=== PATIENT | female | born 1940 | race Caucasian/White ===

== ENCOUNTER → 2017-07-07 08:51 | Outpatient (CLI) | payer MEDICARE, OTHER, SELFPAY ==
--- NOTE | 2017-07-07 08:58 | HPBD_ITS ---
STUDY: DUAL ENERGY X-RAY ABSORPTIOMETRY / DXA REASON FOR EXAM: Female, 76 years old. The patient is postmenopausal. Loss of height of 1.5 inches. TECHNIQUE: Bone Mineral Density (BMD) measurements of lumbar spine and bilateral hips were obtained. COMPARISON: None. FINDINGS: Lumbar Spine (L1-L4): g/cm2 (1.185) / T-score (0.1) / Z-score (1.9) Findings are suggestive of normal bone density with a low fracture risk. Left Femur Total: g/cm2 (0.922) / T-score (-0.7) / Z-score (1.1) Left Femoral Neck: g/cm2 (0.993) / T-score (-0.3) / Z-score (1.7) Right Femur Total: g/cm2 (0.845) / T-score (-1.3) / Z-score (0.5) Right Femoral Neck: g/cm2 (0.960) / T-score (-0.6) / Z-score (1.4) HPBD/Dexa Bone Density Study (HP) IMPRESSION: The patient is considered osteopenic as outlined below according to World Travis Organization (WHO) criteria with a moderate fracture risk. Reference Information: The T-score is the number of standard deviations above or below the standard which is normal for young adults at their peak bone mineral density. The World Health Organization (WHO) interprets the T-scores as follows: Above -1 Normal bone density Between -1 and -2.5 Osteopenia Equal to / or below -2.5 Osteoporosis As a practical clinical guideline, osteopenia may be graded as follows: Mild -1 through -1.5 Moderate -1.6 through -2.0 Severe -2.1 through -2.4 The Z-score is the number of standard deviations above or below age-matched controls. A Z-score of less than -1.5 would be considered abnormal. References: 1. NIH Osteoporosis and Related Bone Diseases http://www.osteo.org 2. International Society for Clinical Densitometry http://www.iscd.org 3. National Osteoporosis Foundation http://www.nof.org Electronically Signed: Artis Cosme MD at 11:08 EST Tel [phone], Service support ,
--- NOTE | 2017-07-07 08:58 | HPBI_ITS ---
MAMMOGRAPHY - BILATERAL SCREENING REASON FOR EXAM: Female, 76 years old. Routine annual screening examination. PERTINENT HISTORY: Mother with breast cancer. TECHNIQUE: Digital bilateral breast kennedy (3D mammographic acquisition) in the CC and MLO projections. 2-D mediolateral oblique (MLO) and craniocaudad (CC) views of both breasts were obtained. CAD: Full Field Digital Mammography with Computer Added Detection was performed. COMPARISON: Comparison is made with prior study dated November 18, 2015 and October 15, 2014. FINDINGS: Breast Composition: There are scattered areas of fibroglandular density. There are no dominant masses or suspicious calcifications. No other significant abnormalities are identified. There has been no significant change since the prior study. HPBI/SCREENING MAMM (CAD), BILAT IMPRESSION: Stable bilateral screening mammogram. Yearly follow-up mammogram recommended. (A) ASSESSMENT CATEGORY: BIRADS Category 1: Negative. A letter regarding these results will be sent to the patient by the facility within 30 days. Approximately 10% of breast cancers are not detected by mammography. A normal mammogram should not delay biopsy of a clinically suspicious abnormality. [id number] Electronically Signed: Artis Cosme MD at 10:50 EST Tel [phone], Service support ,
== END ==
PROVIDERS: Family Provider Internal Medicine; PCP Internal Medicine; Visit Provider Internal Medicine
DX: Z12.31 Encounter for screening mammogram for malignant neoplasm of breast (principal); Z78.0 Asymptomatic menopausal state
CPT/HCPCS: 77063; 77067; 77080

== ENCOUNTER 2018-06-25 03:05 | Emergency (ER) | payer MEDICARE, OTHER, SELFPAY ==
[2018-06-25 03:06] VITALS: BP 179/71; PULSE 62; RESP 16; TEMP 36.3; O2SAT 97; BMI 21.9
--- NOTE | 2018-06-25 03:39 | EKG12_ITS ---
Test Reason : Blood Pressure : / mmHG Vent. Rate : 063 BPM Atrial Rate : 063 BPM P-R Int : 152 ms QRS Dur : 056 ms QT Int : 412 ms P-R-T Axes : 009 -16 037 degrees QTc Int : 421 ms Normal sinus rhythm Low voltage QRS Borderline ECG Confirmed by NENO ANDINO, ERNESTINE ([id number]), map editor RIKKI WARREN ([id number]) on 06/28/2018 11:40:58 AM Referred By: SPENSER Confirmed By:ERNESTINE LAZCANO MD
--- NOTE | 2018-06-25 03:40 | ED.DCSUM_ITS ---
- ER Visit Summary Date of Service: 06/25/18 Chief Complaint: [] Dizzy lightheaded History of Present Illness: The patient is a 77 F stated she felt lightheaded 45 minutes ago gradual onset. She ate lots of candy today and normally does not do that. She has a history of diabetes and takes oral medications but not insulin. She thinks she might have overdone it with her sugar her she has had a lot of belching and flatulence since 6 PM. No abdominal pain no headache no other symptoms per patient. She has had nonspecific near syncope in the past with low blood sugar. Physical Examination: [] Vital signs reviewed General: Well-nourished well-developed Head: Normocephalic atraumatic Eyes: Pupils equal round and reactive to light extraocular movements intact ENT: TMs clear no hemotympanum no trauma Neck: Nontender full range of motion Cardiovascular: Regular rate rhythm no murmurs normal S1-S2 Respiratory: No distress clear to auscultation bilaterally chest nontender Abdomen: Soft nontender nondistended normal bowel sounds no masses Back: Nontender no CVA tenderness Extremities: Nontender active range of motion ?4 extremities no trauma Skin: Normal color no trauma Neuro alert oriented cranial nerves II through XII intact normal strength sensation reflexes Test Results: [] Emergency Department Course and Treatment: [] Remained stable in the emergency department. Troponin negative. EKG normal sinus at 63. CBC normal. Chemistries normal except sodium 135. Glucose 169. Patient ambulated to the bathroom multiple times with no symptoms. It resolved while in the ER after fluids. She is resting comfortably. I do not think she needs to be admitted. I do not think she is had a stroke or TIA. She had nonspecific lightheadedness. I feel she can follow-up as an outpatient return if she worsens. Treatment Plan: [] Disposition: [] Impression: [] Lightheaded episode This note was generated with [employer] dictation software. It may contain incorrect words, spelling, and punctuation that were not noted in review of the chart prior to signing ED Disposition - Plan for ED Patient: Referrals: Mari Braun MD [Primary Care Provider] -
[2018-06-25 04:01] LABS: Bedside Glucose 145 mg/dL (70-110)
[2018-06-25 04:10] LABS: Absolute Lymphocyte Count 1.33 X10^3/ul (0.83-4.51); Absolute Neutrophil Count 3.5 X10^3/uL (2.0-7.7); Basophil# 0.02 X10^3/uL; Basophil% 0.4 % (0-1); Eosinophil# 0.06 X10^3/uL; Eosinophils% 1.1 % (0-5); Hematocrit 37.6 % (37-47); Hemoglobin 13.1 g/dl (12.0-15.0); Lymphocyte # 1.33 X10^3/ul (4.0); Lymphocyte % 24.7 % (19-41); Mean Corp Hgb Conc 34.8 g/gl (32-36); Mean Corpuscular Hgb 31.4 pg (27.0-32.0); Mean Corpuscular Volume 90.2 fL (81-99); Mean Platelet Vol. 9.3 fl (6.2-12.0); Monocyte# 0.46 X10^3/uL; Monocyte% 8.6 % (0-10); Platelet Count 187 K/mm3 (150-450); RBC Distribution Width CV 13.2 % (11.6-14.6); RBC Distribution Width SD 43.1 fl (35.1-43.9); Red Blood Count 4.17 M/mm3 (4.2-5.4); White Blood Count 5.4 K/mm3 (4.4-11.0)
[2018-06-25 04:17] LABS: POSITIVE COUNT NO; POSITIVE DIFFERENTIAL NO; POSITIVE MORPHOLOGY NO
[2018-06-25 04:20] LABS: Anion Gap 9 (5-15); BUN 8 mg/dL (7-18); Chloride 99 mmol/L (98-107); Creatinine, Serum 0.67 mg/dL (0.55-1.02); EST Glomerular Filtration Rate 91 mL/min (>60); Est Glom Filt Rate - Afr Amer 110 mL/min (>60); Estimated Creatinine Clearance 49.24 ml/min; Glucose 169 mg/dL (74-106); Potassium 3.9 mmol/L (3.5-5.1); Sodium Level 135 mmol/L (136-145)
--- NOTE | 2018-06-25 05:16 | ED.DEP ---
ED Disposition - Plan for ED Patient: Disposition: Home or Assisted Living Instructions: Possible Causes of Dizziness or Fainting Referrals: Mari Braun MD [Primary Care Provider] -
[2018-06-25 05:28] VITALS: BP 141/89; PULSE 69; O2SAT 100
== END 2018-06-25 05:29 | disposition home or self-care (01) ==
PROVIDERS: Emergency Provider Emergency Medicine; Family Provider Internal Medicine; PCP Internal Medicine
DX: R42 Dizziness and giddiness (principal); R14.2 Eructation; R14.3 Flatulence; E11.9 Type 2 diabetes mellitus without complications; E78.00 Pure hypercholesterolemia, unspecified; E03.9 Hypothyroidism, unspecified; Z87.19 Personal history of other diseases of the digestive system; Z79.84 Long term (current) use of oral hypoglycemic drugs; Z79.899 Other long term (current) drug therapy
CPT/HCPCS: 80048; 82962; 84484; 85025; 93005; 99283; A4216

== ENCOUNTER 2020-07-11 07:05 | Outpatient (RCR) | payer MEDICARE, OTHER, SELFPAY ==
[2020-07-11] MEDS: COVID-19 VACC, MRNA(PFIZER)/PF 30 MCG/0.3 ML SYRINGE IM (10:54)
[2020-08-01] MEDS: COVID-19 VACC, MRNA(PFIZER)/PF 30 MCG/0.3 ML SYRINGE IM (10:54)
== END 2020-07-11 23:59 ==
LOC: IMMUN 07:05
PROVIDERS: PCP Internal Medicine; Visit Provider Family Medicine
DX: Z23 Encounter for immunization (principal)
CPT/HCPCS: 0001A; 0002A

== ENCOUNTER 2022-02-02 21:20 | Observation (INO) | payer MEDICARE, OTHER, SELFPAY ==
[2022-02-02 21:21] VITALS: BP 100/62; PULSE 55; RESP 20; TEMP 36.1; O2SAT 100; BMI 21.4
[2022-02-02 21:26] VITALS: BP 100/62; PULSE 55; RESP 18; TEMP 36.1; O2SAT 100
--- NOTE | 2022-02-02 21:50 | EKG12_ITS ---
Test Reason : SOB Blood Pressure : / mmHG Vent. Rate : 054 BPM Atrial Rate : 054 BPM P-R Int : 188 ms QRS Dur : 068 ms QT Int : 488 ms P-R-T Axes : 049 -12 038 degrees QTc Int : 462 ms Sinus bradycardia Low voltage QRS Inferior infarct , age undetermined , cannot be excluded Abnormal ECG Confirmed by SAWYER ANDINO, VIVIAN ([id number]), advertising editor GABBY GARCIA ([id number]) on 02/03/2022 1:21:12 PM Referred By: Confirmed By:VIVIAN JACQUES MD
[2022-02-02] MEDS: 0.9% Normal Saline 1,000 ML 1000 ML IV (22:06)
[2022-02-02 22:08] VITALS: BP 118/60; PULSE 55; RESP 18; O2SAT 95
--- NOTE | 2022-02-02 22:10 | RAD_ITS ---
EXAM: XR CHEST, 1 VIEW CLINICAL INDICATION: weakness TECHNIQUE: Frontal view of the chest. This report was created using [employer] report generation technology. COMPARISON: None. FINDINGS: LUNGS AND PLEURAL SPACES: Emphysema. Mild patchy opacity left lung base laterally may be chronic but a small area of pneumonia cannot be excluded. No pneumothorax. No effusion. HEART: Unremarkable. Cardiac silhouette not enlarged. MEDIASTINUM: Central airways and mediastinal contour are unremarkable. BONES/JOINTS: Unremarkable. SOFT TISSUES: Unremarkable. RAD/Chest 1 View (Portable) IMPRESSION: 1. Emphysema. 2. Mild patchy opacity left lung base laterally may be chronic but a small area of pneumonia cannot be excluded. Electronically Signed: Jude Snow MD at 23:14 EDT ,
[2022-02-02 22:16] LABS: Absolute Lymphocyte Count 1.11 X10^3/uL (0.83-4.51); Absolute Neutrophil Count 3.8 X10^3/uL (2.0-7.7); Basophil# 0.02 X10^3/uL; Basophil% 0.4 % (0-1); Eosinophil# 0.06 X10^3/uL; Eosinophils% 1.1 % (0-5); Hemoglobin 12.7 g/dL (12.0-15.0); Lymphocyte # 1.11 X10^3/ul (0.83-4.51); Lymphocyte % 20.1 % (19-41); Mean Corp Hgb Conc 34.3 g/dL (32-36); Mean Corpuscular Hgb 30.5 pg (27.0-32.0); Mean Corpuscular Volume 88.7 fL (81-99); Monocyte# 0.46 X10^3/uL; Monocyte% 8.3 % (0-10); NRBC Flagged by Analyzer 0 % (0-5); Neutrophil # 3.84 X10^3/uL (2.7-7.7); Neutrophil % 69.6 % (47-70); Platelet Count 190 K/mm3 (150-450); RBC Distribution Width CV 12.8 % (11.6-14.6); RBC Distribution Width SD 41.7 fl (35.1-43.9); Red Blood Count 4.17 M/mm3 (4.2-5.4); White Blood Count 5.5 K/mm3 (4.4-11.0)
[2022-02-02 22:28] VITALS: BP 118/60; PULSE 65; RESP 18; TEMP 36.3; O2SAT 96
--- NOTE | 2022-02-02 22:34 | EDS_ITS ---
HPI History of Present Illness Chief Complaint: General Illness Narrative Narrative: Patient presents to the ED with confusion, weakness and a syncopal episode. She had her syncopal episode while her was calling the EMS for himself. They both were diagnosed with COVID about a week ago, they both had diarrhea, she has been more weak recently and lightheaded. She has dementia at baseline so is difficult to get a good history and review of systems from her, most of the history is from her . [facility] Medical History Diabetes Hypothyroidism Home Medications levothyroxine 88 mcg tablet 88 mcg PO DAILY 06/25/18 [History Last Taken Unknown] metformin 1,000 mg tablet 1,000 mg PO BIDCM 06/25/18 [History Last Taken Unknown] simvastatin 40 mg tablet 40 mg PO QHS 06/25/18 [History Last Taken Unknown] Allergy/AdvReac Type Severity Reaction Status Date / Time No Known Allergies Allergy Verified 02/02/22 21:26 Social History Smoking Status: Never smoker ROS ROS ED ROS Narrative Past medical history: Reviewed, dementia, diabetes, hypercholesterolemia, hypothyroidism Medications: Reviewed Social history: Noncontributory Review of systems: All systems negative or unable due to her dementia except as indicated General: No reported fever per Eyes: Patient denies blurred vision ENT: Denies upper airway congestion Neck: No neck pain Cardiovascular: No chest pain Respiratory: She tells me she is not short of breath Gastrointestinal: She denies abdominal pain Genitourinary: Unable Musculoskeletal: She denies muscle aches Skin: No itching or known rash Neurological: No focal w weakness Psych: No recent behavioral changes Hematologic: Unable EXAM Physical Exam Narrative Exam Narrative: Physical exam General: Patient appears chronically ill however she does not appear in any distress, she seems relatively comfortable in the bed. Head: Normocephalic, Atraumatic Eyes: Conjunctiva not pale ENT: Dry mucous membranes Neck: Supple, Nontender, No lymphadenopathy Cardiovascular: Regular rate, Regular rhythm Respiratory: No distress, CTA bilaterally Abdomen: Soft, Nontender, Nondistended Back: Nontender, Normal Inspection. Negative for: CVA tenderness Extremities: Nontender, No edema Skin: Normal color, No rash Neurological: Alert, oriented to year, person. She does know she is in [place]. She is confused to minor details normal Strength, Normal Sensation Psychological: Normal affect Const Vital Signs: 02/02/22 21:21 02/02/22 22:08 02/02/22 21:26 Temperature 97 F L 97.0 F L Temperature Source Temporal Temporal Pulse Rate 55 L 55 L 55 L Respiratory Rate 20 H 18 18 Respiratory Effort Respiratory Pattern Blood Pressure 100/62 118/60 100/62 Blood Pressure Mean 74 79 74 Pulse Ox 100 95 100 Oxygen Delivery Method Room Air Room Air Room Air 02/02/22 22:26 02/02/22 22:28 Temperature 97.4 F L Temperature Source Temporal Pulse Rate 65 Respiratory Rate 18 Respiratory Effort Normal Respiratory Pattern Normal Blood Pressure 118/60 Blood Pressure Mean 79 Pulse Ox 96 Oxygen Delivery Method Room Air MDM MDM MDM Narrative Medical decision making narrative: Patient's work-up is unremarkable however she has significant weakness, she was dehydration, she did improve in the emergency department but she is likely too weak to go home by herself especially that her is getting admitted. Her EKG is unremarkable as noted below. She has been asymptomatic in the ED from syncopal standpoint, she has no chest pain. She will be admitted for obs ervation. Lab Data Labs: Laboratory Results - last 24 hr 02/02/22 02/02/22 22:05 22:05 WBC 5.5 RBC 4.17 L Hgb 12.7 Hct 37.0 MCV 88.7 MCH 30.5 MCHC 34.3 RDW Std Deviation 41.7 RDW Coeff of Saadia 12.8 Plt Count 190 MPV 10.0 Immature Gran % (Auto) 0.500 Neut % (Auto) 69.6 Lymph % (Auto) 20.1 Daniels % (Auto) 8.3 Eos % (Auto) 1.1 Baso % (Auto) 0.4 Absolute Neuts (auto) 3.8 Absolute Lymphs (auto) 1.11 Nucleated RBC % 0 Sodium 133 L Potassium 4.9 Chloride 98 Carbon Dioxide 25.0 Anion Gap 10 BUN 8 Creatinine 1.00 Estim Creat Clear Calc 45.90 Est GFR (MDRD) Af Amer 68 Est GFR (MDRD) Non-Af 57 L BUN/Creatinine Ratio 8.0 L Glucose 210 H Calcium 9.0 Total Bilirubin 0.60 AST 31 ALT 18 Alkaline Phosphatase 49 Troponin I High Sens 4 Total Protein 6.2 L Albumin 3.1 L Globulin 3.1 Albumin/Globulin Ratio 1.0 Radiography Diagnostic Testing: Chest x-ray read by me as normal EKG Initial EKG: Comments: Sinus rhythm with a rate of 54. Normal CT and QTc interval. No ischemic changes. Normal EKG otherwise. Interpreted by emergency Dr. Discharge Plan Triage Chief Complaint: General Illness ED Provider: Aris Herrera Dx/Rx/DC Orders Clinical Impression: Syncope, Dehydration, COVID Prescriptions: No Action simvastatin 40 MG tablet 40 mg PO QHS levothyroxine 88 MCG tablet 88 mcg PO DAILY metformin 1,000 MG tablet 1,000 mg PO BIDCM Primary Care Provider: Mari Braun Referrals: Mari Braun MD [Primary Care Provider] - Disposition Disposition: Acute Care Hospital [facility]
[2022-02-02 22:52] LABS: AST(SGOT) 31 U/L (15-37); Alanine Aminotransfer ALT/SGPT 18 U/L (13-56); Albumin, Serum 3.1 g/dL (3.2-5.0); Alkaline Phosphatase 49 U/L (45-117); Anion Gap 10 (5-15); BUN 8 mg/dL (7-18); Chloride 98 mmol/L (98-107); EST Glomerular Filtration Rate 57 mL/min (>60); Est Glom Filt Rate - Afr Amer 68 mL/min (>60); Globulin 3.1 g/dL (2.2-4.2); Glucose 210 mg/dL (74-106); Potassium 4.9 mmol/L (3.5-5.1); Protein, Total 6.2 g/dL (6.4-8.2); Sodium Level 133 mmol/L (136-145); Troponin-I HS 4 pg/mL (3.0-54.0)
--- NOTE | 2022-02-02 23:12 | PCM.HP.STD ---
HPI - General General Date of Admission: 02/02/22 Date of Service: 02/02/22 Chief Complaint: Syncope HPI Narrative ALEXANDER CROFT, is a 81 F with a significant history of diabetes; hypothyroidism and dementia who presented to the emergency department with syncope. History was taken from patient's as patient is unable to provide appropriate history secondary to dementia. Of note patient stated that she is here because of COVID. On the day of presentation the patient's who was weak was calling paramedics. Reportedly while patient was on the phone patient passed out. Associated with patient's symptoms is diarrhea. Patient's believe the patient is unable to take care of herself while he () is in the hospital so a decision was made for patient to stay at the hospital and be observed. [facility] Medical History (Updated 02/03/22 @ 00:[address] Sean Ivy MD) Diabetes Hypothyroidism Home Medications levothyroxine 88 mcg tablet 88 mcg PO DAILY 06/25/18 [History Last Taken Unknown] metformin 1,000 mg tablet 1,000 mg PO BIDCM 06/25/18 [History Last Taken Unknown] simvastatin 40 mg tablet 40 mg PO QHS 06/25/18 [History Last Taken Unknown] Allergy/AdvReac Type Severity Reaction Status Date / Time No Known Allergies Allergy Verified 02/02/22 21:26 Family History unable to obtain unable to obtain (Secondary to dementia) Surgical History History of hysterectomy Social History Smoking Status: Never smoker ROS Review of Systems ROS Unobtainable: due to mental status Vital Signs Vital Signs Vital Signs: 02/02/22 21:21 02/02/22 22:08 02/02/22 21:26 Temperature 97 F L 97.0 F L Temperature Source Temporal Temporal Pulse Rate 55 L 55 L 55 L Respiratory Rate 20 H 18 18 Respiratory Effort Respiratory Pattern Blood Pressure 100/62 118/60 100/62 Blood Pressure Mean 74 79 74 Pulse Ox 100 95 100 Oxygen Delivery Method Room Air Room Air Room Air 02/02/22 22:26 02/02/22 22:28 Temperature 97.4 F L Temperature Source Temporal Pulse Rate 65 Respiratory Rate 18 Respiratory Effort Normal Respiratory Pattern Normal Blood Pressure 118/60 Blood Pressure Mean 79 Pulse Ox 96 Oxygen Delivery Method Room Air Weight Weight: 65.9 kg Body Mass Index (BMI) 21.4 Physical Exam Narrative Physical exam: General: Well-nourished, well-developed. Head: Normocephalic, atraumatic, no tenderness Eyes: Vision is grossly intact. EOMI ENT, no trauma, mildly dry mucous membranes, no rhinorrhea Neck: Nontender, full range of motion, no spinal tenderness, deformities, step-off CVS: Regular rate and rhythm. S1-S2 present. No murmur, gallop or rub. Respiratory : clear to auscultation bilaterally, chest wall nontender, no wheezing Abdomen: Soft, nontender, nondistended, normal bowel sounds, no masses : Deferred Back: Nontender, no CVA tenderness, no midline spinal tenderness, deformities, step-offs Extremities: Nontender full range of motion, no trauma Skin: Normal color, no trauma, abrasions Neuro: Alert, cranial nerves II through XII grossly intact. Psychiatry: Normal mood. Normal affect. Not depressed. Not anxious. Results Lab / Micro Data Attestation: I reviewed the patient's lab results. Result Diagrams: 02/02/22 22:05 02/02/22 22:05 Labs: Laboratory Results - last 24 hr 02/02/22 22:05: WBC 5.5, RBC 4.17 L, Hgb 12.7, Hct 37.0, MCV 88.7, MCH 30.5, MCHC 34.3, RDW Std Deviation 41.7, RDW Coeff of Saadia 12.8, Plt Count 190, MPV 10.0, Immature Gran % (Auto) 0.500, Neut % (Auto) 69.6, Lymph % (Auto) 20.1, [place] % (Auto) 8.3, Eos % (Auto) 1.1, Baso % (Auto) 0.4, Absolute Neuts (auto) 3.8, Absolute Lymphs (auto) 1.11, Nucleated RBC % 0 02/02/22 22:05: Sodium 133 L, Potassium 4.9, Chloride 98, Carbon Dioxide 25.0, Anion Gap 10, BUN 8, Creatinine 1.00, Estim Creat Clear Calc 45.90, Est GFR (MDRD) Af Amer 68, Est GFR (MDRD) Non-Af 57 L, BUN/Creatinine Ratio 8.0 L, Glucose 210 H, Calcium 9.0, Total Bilirubin 0.60, AST 31, ALT 18, Alkaline Phosphatase 49, Troponin I High Sens 4, Total Protein 6.2 L, Albumin 3.1 L, Globulin 3.1, Albumin/Globulin Ratio 1.0 Assessment & Plan Assessment/Plan (1) Syncope: (2) COVID-19: PLAN: Asymptomatic. (3) Diarrhea: PLAN: Plan Syncope Unclear whether patient indeed had a syncope or patient's sick just wanted a reason for patient to be observed in the Hospital in the setting of patient not being able to take care of herself if is absent. EKG independently reviewed. EKG showed sinus bradycardia and with Q waves in lead III and aVF. Impression of chest x-ray by radiologist: 1.? Emphysema. ?2.? Mild patchy opacity left lung base laterally may be chronic but a small area of pneumonia cannot be excluded. I agree with radiologist interpretation. Clinically patient has no sign of bacterial pneumonia. With COVID no echocardiogram will be ordered at this time. Orthostatic vitals per protocol Emergency department doctor ordered CTA chest; follow. COVID/diarrhea. As needed Imodium ordered. Supportive treatment with IV fluids. Mild Dehydration Mucous membrane slightly dry. Gentle IV hydration ordered. Trend BMP. Diabetes mellitus Patient with hyperglycemia on presentation Metformin held Monitor Accu-Cheks Correction scale insulin ordered. DVT Prophylaxis: Subcutaneous Lovenox ordered Charges/Coding Visit Charges OBSV E&M: 57603 Initial observation care L2
[2022-02-02 23:57] VITALS: BP 124/77; PULSE 71; RESP 16; TEMP 36.6; O2SAT 97
[2022-02-03] VITALS (15 sets, daily range): BP systolic 96–145; BP diastolic 49–72; PULSE 67–100; RESP 16–18; TEMP 36.1–36.7; O2SAT 94–100; BMI 20.2
[2022-02-03] MEDS: 0.9% Normal Saline 1,000 ML 75 ML IV ×2 (02:10→14:18)
[2022-02-03 06:22] LABS: Absolute Lymphocyte Count 1.01 X10^3/uL (0.83-4.51); Absolute Neutrophil Count 2.6 X10^3/uL (2.0-7.7); Basophil# 0.02 X10^3/uL; Basophil% 0.5 % (0-1); Eosinophil# 0.01 X10^3/uL; Eosinophils% 0.3 % (0-5); Hemoglobin 13.3 g/dL (12.0-15.0); Lymphocyte # 1.01 X10^3/ul (0.83-4.51); Lymphocyte % 25.6 % (19-41); Mean Corpuscular Hgb 30.4 pg (27.0-32.0); Mean Corpuscular Volume 86.8 fL (81-99); Mean Platelet Vol. 9.9 fl (6.2-12.0); Monocyte# 0.29 X10^3/uL; Monocyte% 7.3 % (0-10); NRBC Flagged by Analyzer 0 % (0-5); Neutrophil # 2.61 X10^3/uL (2.7-7.7); Platelet Count 214 K/mm3 (150-450); RBC Distribution Width CV 12.7 % (11.6-14.6); RBC Distribution Width SD 40.6 fl (35.1-43.9); Red Blood Count 4.38 M/mm3 (4.2-5.4)
[2022-02-03 06:45] LABS: Anion Gap 10 (5-15); BUN 7 mg/dL (7-18); BUN/Creat Ratio 10.7 RATIO (10-20); Calcium,Total 8.9 mg/dL (8.5-10.1); Chloride 98 mmol/L (98-107); Creatinine, Serum 0.65 mg/dL (0.55-1.02); EST Glomerular Filtration Rate 93 mL/min (>60); Est Glom Filt Rate - Afr Amer 112 mL/min (>60); Estimated Creatinine Clearance 43.39 ml/min; Glucose 140 mg/dL (74-106); Potassium 3.7 mmol/L (3.5-5.1); Sodium Level 133 mmol/L (136-145)
[2022-02-03] MEDS: Levothyroxine 88 MCG Tablet PO (07:00)
[2022-02-03] MEDS: Enoxaparin 40 MG/0.4 ML Syringe SC (09:09)
[2022-02-03] MEDS: Loperamide 2 MG Capsule PO (11:32)
--- NOTE | 2022-02-03 15:22 | CASEMGMT ---
OWEN BAKER called Jude Xiao to complete JI form as patient is confused. RN SAMUEL explained JI Form to , voiced understanding. gave telephone consent for JI form and filed in chart. provided copy of JI form to patient's room. had no further questions or concerns at this time.
--- NOTE | 2022-02-03 19:13 | PCM.PN.HOSP ---
Subjective Subjective Patient was seen and examined today, she remains moderately confused, according to her who is also in the hospital at this time, that is her usual state at home. I called and talked to her PCPs office and they had no diagnosis of dementia for the patient, it appears however the patient probably does have mild dementia. Patient does not understand why she is in the hospital, she states she is having diarrhea but she has no respiratory symptoms-no cough, no shortness of breath, no nasal congestion, no sore throat. I found out through the patient's PCPs office that her positive COVID test was 01/28/2022, it is unknown if the patient had any symptoms but it appears by the narrative from urgent care that the patient was asymptomatic and was tested because her was positive for COVID on 01/25/2022. Objective Data Objective Data Vital Signs: Vital Signs Temp Pulse Resp BP Pulse Ox O2 Del Method 98.1 F 69 16 127/72 H 100 Room Air 02/03/22 15:05 02/03/22 15:05 02/03/22 15:05 02/03/22 15:05 02/03/22 15:05 02/03/22 15:05 Oxygen Delivery Method Room Air Weight: 62.3 kg Body Mass Index (BMI) 20.2 Intake & Output: Intake and Output for Last 24 Hours 02/01/22 02/02/22 02/03/22 23:59 23:59 23:59 Intake Total 1000 / 1000 1870 / 1870 Balance 1000 / 1000 1870 / 1870 Lab / Micro Data Result Diagrams: 02/03/22 05:55 02/03/22 05:55 Labs: Laboratory Results - last 24 hr 02/02/22 22:05: WBC 5.5, RBC 4.17 L, Hgb 12.7, Hct 37.0, MCV 88.7, MCH 30.5, MCHC 34.3, RDW Std Deviation 41.7, RDW Coeff of Saadia 12.8, Plt Count 190, MPV 10.0, Immature Gran % (Auto) 0.500, Neut % (Auto) 69.6, Lymph % (Auto) 20.1, [place] % (Auto) 8.3, Eos % (Auto) 1.1, Baso % (Auto) 0.4, Absolute Neuts (auto) 3.8, Absolute Lymphs (auto) 1.11, Nucleated RBC % 0 02/02/22 22:05: Sodium 133 L, Potassium 4.9, Chloride 98, Carbon Dioxide 25.0, Anion Gap 10, BUN 8, Creatinine 1.00, Estim Creat Clear Calc 45.90, Est GFR (MDRD) Af Amer 68, Est GFR (MDRD) Non-Af 57 L, BUN/Creatinine Ratio 8.0 L, Glucose 210 H, Calcium 9.0, Total Bilirubin 0.60, AST 31, ALT 18, Alkaline Phosphatase 49, Troponin I High Sens 4, Total Protein 6.2 L, Albumin 3.1 L, Globulin 3.1, Albumin/Globulin Ratio 1.0 02/03/22 05:55: WBC 4.0 L, RBC 4.38, Hgb 13.3, Hct 38.0, MCV 86.8, MCH 30.4, MCHC 35.0, RDW Std Deviation 40.6, RDW Coeff of Saadia 12.7, Plt Count 214, MPV 9.9, Immature Gran % (Auto) 0.300, Neut % (Auto) 66.0, Lymph % (Auto) 25.6, [place] % (Auto) 7.3, Eos % (Auto) 0.3, Baso % (Auto) 0.5, Absolute Neuts (auto) 2.6, Absolute Lymphs (auto) 1.01, Nucleated RBC % 0 02/03/22 05:55: Sodium 133 L, Potassium 3.7, Chloride 98, Carbon Dioxide 25.0, Anion Gap 10, BUN 7, Creatinine 0.65, Estim Creat Clear Calc 43.39, Est GFR (MDRD) Af Amer 112, Est GFR (MDRD) Non-Af 93, BUN/Creatinine Ratio 10.7, Glucose 140 H, Calcium 8.9 Radiography Diagnostic Testing: Radiology Impression Chest X-Ray 02/02/22 22:10 IMPRESSION: 1. Emphysema. 2. Mild patchy opacity left lung base laterally may be chronic but a small area of pneumonia cannot be excluded. Electronically Signed: Jude Snow MD at 23:14 EDT , Physical Exam Const alert and no apparent distress Constitutional Narrative: Patient has mild confusion, she is oriented as to person and place, she appears her stated age General Appearance: cooperative, well kempt and well developed Orientation / Consciousness: awake and confused HEENT normocephalic, head/scalp atraumatic and moist oral mucous membranes Eyes PERRL, EOMs intact bilaterally and conjunctivae normal Neck supple, no JVD, thyroid normal and no carotid bruits General: trachea midline Resp normal respiratory effort, no retractions, no use of accessory muscles and clear to auscultation bilaterally Auscultation: Negative for rales, rhonchi or wheezes Cardio regular rate, regular rhythm, S1 normal heart sound, S2 normal heart sound, no murmurs, no rub and no gallops GI normal to inspection, nondistended, normoactive bowel sounds, soft to palpation, non-tender and non-distended Extremity no clubbing, cyanosis or edema Skin no rashes or lesions noted General Skin Exam: no breakdown Neuro oriented x3, CN's II-XII intact bilaterally, no focal motor deficits and no sensory deficits noted Sensorium / Orientation: awake and alert Speech: speech normal Psych affect normal Assessment & Plan Assessment/Plan (1) Syncope: PLAN: Plan 1. Syncope-etiology unclear at this point, patient exhibits no neurodeficits, she is mildly confused-according to her this is her baseline. #2 diarrhea-secondary to COVID-19 infection, patient will be given symptomatic treatment for her diarrhea #3 COVID-19 infection-patient has no evidence of respiratory embarrassment, cough, or upper respiratory symptoms, I have elected not to give her medication for COVID-19. 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 Charges/Coding Visit Charges OBSV E&M: 04979 Subsequent observation care L2
[2022-02-03] MEDS: MELATONIN 3 MG TABLET PO (20:46)
[2022-02-03] MEDS: Atorvastatin Calcium 20 MG Tablet PO (20:46)
[2022-02-03 23:55] LABS: Bedside Glucose 190 mg/dL (74-106)
[2022-02-04] MEDS: Insulin Lispro 100 UNIT/ML INSULN.PEN SC ×3 (00:12→11:02)
[2022-02-04 03:00] VITALS: BP 129/59; PULSE 69; RESP 16; TEMP 36.2; O2SAT 97
[2022-02-04 03:01] VITALS: PULSE 64
[2022-02-04] MEDS: Levothyroxine 88 MCG Tablet PO (06:24)
[2022-02-04] MEDS: 0.9% Normal Saline 1,000 ML 75 ML IV (06:25)
[2022-02-04 07:10] LABS: Bedside Glucose 187 mg/dL (74-106)
[2022-02-04 07:19] VITALS: PULSE 71
[2022-02-04 08:14] VITALS: BP 133/66; PULSE 71; RESP 16; TEMP 36.4; O2SAT 96
[2022-02-04] MEDS: Acetaminophen 325 MG Tablet 650 MG PO (08:18)
[2022-02-04] MEDS: Enoxaparin 40 MG/0.4 ML Syringe SC (08:18)
[2022-02-04] MEDS: Loperamide 2 MG Capsule PO (08:19)
[2022-02-04 09:50] VITALS: BP 133/66; PULSE 71; RESP 16; TEMP 36.4; O2SAT 96
[2022-02-04 11:01] VITALS: BP 106/62; PULSE 70; RESP 12; TEMP 36.6; O2SAT 98
[2022-02-04 11:31] LABS: Bedside Glucose 280 mg/dL (74-106)
--- NOTE | 2022-02-04 11:37 | DCINST_ITS ---
Discharge Instructions Diet Discharge Diet: 1800 Calorie Control Diet Activity Discharge Activity: Return to Normal Activity Weight Bearing Status: Full weight bearing Follow Up Care Test Results: Test results from this visit will be discussed in further detail at your follow- up appointment, if applicable. Discharge Plan Admission Admit Date/Time: 02/02/22 23:05 Primary Reason for Your Visit: debility Attending Provider: Terrance Keller Primary Care Provider: Mari Braun Consulting Providers: Sean Ivy Discharge Orders/Prescriptions Prescriptions: No Action simvastatin 40 MG tablet 40 mg PO QHS levothyroxine 88 MCG tablet 88 mcg PO DAILY metformin 1,000 MG tablet 1,000 mg PO BIDCM Referrals / Follow Up: Mari Braun MD [Primary Care Provider] - Within 2 Weeks Disposition Disposition (needs filled in before D/C Order can be placed): Home, Self Care
--- NOTE | 2022-02-04 11:41 | PCM.DC.SUM ---
Providers Date of Admission: 02/02/22 Date of Discharge: 02/04/22 Primary Care Physician: Dr. Mari Braun MD Reason For Visit: SYNCOPAL EPISODE Diagnosis Discharge Diagnosis (1) Syncope: Status: Acute Code(s): R55 - Syncope and collapse (2) COVID-19: Status: Acute Code(s): U07.1 - COVID-19 (3) Diarrhea: Status: Acute Code(s): R19.7 - Diarrhea, unspecified Plan 1.? Syncope-etiology unclear at this point, patient exhibits no neurodeficits, she is mildly confused-according to her this is her baseline. #2 diarrhea-secondary to COVID-19 infection, patient will be given symptomatic treatment for her diarrhea #3 COVID-19 infection-patient has no evidence of respiratory embarrassment, cough, or upper respiratory symptoms, I have elected not to give her medication for COVID-19. 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 Medications at Discharge Home Medications levothyroxine 88 mcg tablet 88 mcg PO DAILY thyroid 06/25/18 metformin 1,000 mg tablet 1,000 mg PO BIDCM diabetes 06/25/18 simvastatin 40 mg tablet 40 mg PO QHS cholesterol 06/25/18 Hospital Course Operations None Procedures None Summary of Care Provided Minutes Spent on Discharge: 31 Hospital Course: This 81-year-old white female was seen in the emergency room at [facility] [place] after having a brief syncopal episode at home. Work-up in the emergency room did not reveal an etiology for the syncope patient appeared mildly confused, she lives with her who will who had COVID and she had tested recently as an outpatient for COVID-19 also. Patient complained of loose stools but she had no complaints of any upper or lower respiratory symptoms. She was not hypoxic. Patient was placed in observation status on PCU, he was not treated for COVID-19, she was given supportive care and seen by PT and OT. Patient's had also been admitted the same day, on 02/04/2022, he was ready for discharge home. On 02/04/2022, she was felt to be stable for discharge home: On examination she appeared in good health and spirits, she exhibited mild confusion, she does not appear to be in any distress. Vital signs as documented. Skin warm and dry and without overt rashes. Neck without JVD, thyroid appears normal, trachea is midline, neck is supple. Lungs clear, normal air movement was noted. Heart exam notable for regular rhythm, normal sounds and absence of murmurs, rubs or gallops. Abdomen unremarkable and without evidence of organomegaly, masses, or abdominal aortic enlargement, bowel sounds are present in all 4 quadrants, no abdominal tenderness was noted. Extremities nonedematous, no cyanosis was noted, no clubbing was noted. Neuro: Cranial nerves II through XII are grossly intact, no focal motor deficits were noted, sensation to light touch and pinprick is intact, motor exam 5/5 throughout. Psych: Patient is alert and oriented as to person and place, she exhibited mild confusion Patient was discharged home in stable condition on 02/04/2022.. Weight / BMI Weight Weight: 62.3 kg Body Mass Index (BMI) 20.2 ABG / Lab / Microbiology Data Result Diagrams: 02/03/22 05:55 02/03/22 05:55 Laboratory: Laboratory Results - last 24 hr 02/03/22 23:36: POC Glucose 190 H 02/04/22 06:20: POC Glucose 187 H 02/04/22 10:57: POC Glucose 280 H D/C Instructions Discharge Diet: 1800 Calorie Control Diet Weight Bearing Status: Full weight bearing Meaningful Use Info Meaningful Use Diagnoses (Choose all that apply): None applicable Discharge Plan Admission Admit Date/Time: 02/02/22 23:05 Primary Reason for Your Visit: debility Attending Provider: Terrance Keller Primary Care Provider: Mari Braun Consulting Providers: Sean Ivy Discharge Orders/Prescriptions Prescriptions: No Action simvastatin 40 MG tablet 40 mg PO QHS levothyroxine 88 MCG tablet 88 mcg PO DAILY metformin 1,000 MG tablet 1,000 mg PO BIDCM Referrals / Follow Up: Mari Braun MD [Primary Care Provider] - Within 2 Weeks Disposition Disposition (needs filled in before D/C Order can be placed): Home, Self Care Charges/Coding Visit Charges OBSV E&M: [id number] Observation care discharge
--- NOTE | 2022-02-04 11:57 | PHA.DC.MR ---
Pharmacy Service has performed discharge medication reconciliation for this patient. The patient's discharge medication list was reviewed for discrepancies and discrepancies were resolved. Home Medications levothyroxine 88 mcg tablet 88 mcg PO DAILY thyroid 06/25/18 metformin 1,000 mg tablet 1,000 mg PO BIDCM diabetes 06/25/18 simvastatin 40 mg tablet 40 mg PO QHS cholesterol 06/25/18
--- NOTE | 2022-02-04 12:06 | CASEMGMT ---
Pt's is also admitted and pt has been going to his room(next door) independently. Pt is SBA in room. Pt has pulse ox at home to check oxygen and has been on room air since admission. CM to follow for any further discharge planning/needs. Padmini WEAVER CM
== END 2022-02-04 11:40 | disposition home or self-care (01) ==
LOC: ED 23:09 → PCU 23:19
PROVIDERS: Admitting Provider Hospitalist; Emergency Provider Emergency Medicine; PCP Internal Medicine; Visit Provider Internal Medicine
DX: U07.1 COVID-19 (principal); G30.9 Alzheimer's disease, unspecified; F02.80 Dementia in other diseases classified elsewhere, unspecified severity, without behavioral disturbance, psychotic disturbance, mood disturbance, and anxiety; E11.9 Type 2 diabetes mellitus without complications; R55 Syncope and collapse; E78.00 Pure hypercholesterolemia, unspecified; E86.0 Dehydration; Z79.899 Other long term (current) drug therapy; Z79.890 Hormone replacement therapy; Z79.84 Long term (current) use of oral hypoglycemic drugs; E55.9 Vitamin D deficiency, unspecified
CPT/HCPCS: 36415; 71045; 80048; 80053; 82962; 84484; 85025; 93005; 96360; 96361; 96372; 99218; 99285; J7030; A4216; G0378

== ENCOUNTER 2023-06-19 15:54 | Observation (INO) | payer MEDICARE, OTHER, SELFPAY ==
[2023-06-19 15:55] VITALS: BP 147/85; PULSE 81; RESP 16; TEMP 37.2; O2SAT 99; BMI 23.3
--- OUTSIDE RECORDS SUMMARY | 2023-06-19 16:13 | XMS RPT_ITS | CCD ---
Author Name Unknown Address [address] [place] [address] Organization [facility] Care Team Providers Care Hydraulic Mechanic Name Role Phone Jose Braun MD Primary Care Provider Tony SYSTEMS INTEGRATION MANAGER.Evita RUELAS Primary Care Provider [phone] Jose Braun MD Primary Care Provider JOSE BRAUN Primary Care Unavailable JOSE BRAUN Primary Care Unavailable EVITA JIMENEZ Referring Unavailable JOSE BRAUN Primary Care Unavailable EVITA JIMENEZ Attending Unavailable JOSE BRAUN Primary Care Unavailable EVITA JIMENEZ Attending Unavailable JOSE BRAUN Primary Care Unavailable EVITA JIMENEZ Attending Unavailable EVITA JIMENEZ Primary Care Unavailable EVITA JIMENEZ Primary Care Unavailable Medications Current Medications Medication Drug Class(es) Dates Sig (Normalized) Sig (Original) acetaminophen 325 mg oral tablet (2 sources) Start: 10-30-2015 End: 11-27-2021 take 2 tablets by mouth every six hours as needed acetaminophen (TYLENOL) 325 mg tablet Take 2 tablets by mouth every 6 hours as needed. 0 10/30/2015 11/27/2021 Discontinued Completed/Discontinued Medications Medication Drug Class(es) Dates Sig (Normalized) Sig (Original) multivitamin tablet (9 sources) take 1 tablet by renee th once daily multivitamin tablet Take 1 tablet by mouth once daily. 0 Active Problems Active Problems Problem Classification Problem Date Documented Da te Episodic/Chronic Diabetes mellitus without complication (13 sources) Type 2 diabetes mellitus without complication; Translations: [Type 2 diabetes mellitus without complications] Onset: 10-30-2015 Chronic Disorders of lipid metabolism (11 sources) Hypercholesterolemi a; Translations: [Pure hypercholesterolemi a, unspecified] 10-30-2015 Chronic Mycoses (1 source) Onychomycosis; Translations: [Tinea unguium] Episodic Other gastrointestinal disorders (1 source) Diarrhea; Translations: [Diarrhea, unspecified] Episodic Other skin disorders (1 source) Eruption; Translations: [Rash and other nonspecific skin eruption] Episodic Other skin disorders (1 source) Skin lesion; Translations: [Disorder of the skin and subcutaneous tissue, unspecified] Episodic Residual codes; unclassified (2 sources) Memory impairment; Translations: [Other amnesia] Episodic Syncope (1 source) Syncope; Translations: [Syncope and collapse] Episodic Thyroid disorders (12 sources) Hypothyroidism; Translations: [Hypothyroidism, unspecified] Onset: 10-30-2015 10-30-2015 Chronic Viral infection (2 sources) Disease caused by 2019-nCoV; Translations: [COVID-19] Episodic Viral infection (1 source) COVID-19; Translations: [COVID-19 virus infection] Onset: 01-29-2022 Past or Other Problems Problem Classification Problem Date Documented Da te Episodic/Chronic Immunizations and screening for infectious disease (6 sources) Requires varicella vaccination; Translations: [Encounter for immunization] Onset: 11-27-2021 Episodic Other screening for suspected conditions (not mental disorders or infectious disease) (5 sources) Patient encounter status; Translations: [Encounter for screening for eye and ear disorders] Onset: 11-27-2021 Episodic Residual codes; unclassified (1 source) Other amnesia; Translations: [Memory problem] Onset: 11-27-2021 Episodic Results Test Name Value Interpretation Reference Range Facil ity Vital Signs Date Time Vital Sign Value Performing Clinician Jaylan payne 02-27-2022 08:17-0400 Body weight 63.5 kg Evita Jimenez SYSTEMS INTEGRATION MANAGER.RISK PROFESSIONAL Work Phone: [facility] 02-27-2022 08:17-0400 Diastolic blood pressure 80 mm[Hg] Evita Jimenez SYSTEMS INTEGRATION MANAGER.RISK PROFESSIONAL Work Phone: [facility] 02-27-2022 08:17-0400 Heart rate 83 /min Evita Jimenez SYSTEMS INTEGRATION MANAGER.RISK PROFESSIONAL Work Phone: [facility] 02-27-2022 08:17-0400 Respiratory rate 16 /min Evita Jimenez SYSTEMS INTEGRATION MANAGER.RISK PROFESSIONAL Work Phone: [facility] 02-27-2022 08:17-0400 SaO2% (BldA) [Mass fraction] 98 % Evita Jimenez SYSTEMS INTEGRATION MANAGER.RISK PROFESSIONAL Work Phone: [facility] 02-27-2022 08:17-0400 Systolic blood pressure 122 mm[Hg] Evita Jimenez SYSTEMS INTEGRATION MANAGER.RISK PROFESSIONAL Work Phone: [facility] 01-28-2022 16:11-0400 Body temperature 99.39 [degF] Jackie Praisler-Wood SYSTEMS INTEGRATION MANAGER.CASUALTY UNDERWRITER Work Phone: [facility] 01-28-2022 16:11-0400 Body weight 65.05 kg Jackie Praisler-Wood SYSTEMS INTEGRATION MANAGER.CASUALTY UNDERWRITER Work Phone: [facility] 01-28-2022 16:11-0400 Diastolic blood pressure 82 mm[Hg] Jackie Praisler-Wood SYSTEMS INTEGRATION MANAGER.CASUALTY UNDERWRITER Work Phone: [facility] 01-28-2022 16:11-0400 Heart rate 86 /min Jackie Praisler-Wood SYSTEMS INTEGRATION MANAGER.CASUALTY UNDERWRITER Work Phone: [facility] 01-28-2022 16:11-0400 Respiratory rate 18 /min Jackie Praisler-Wood SYSTEMS INTEGRATION MANAGER.CASUALTY UNDERWRITER Work Phone: [facility] 01-28-2022 16:11-0400 SaO2% (BldA) [Mass fraction] 95 % Jackie Praisler-Wood SYSTEMS INTEGRATION MANAGER.CASUALTY UNDERWRITER Work Phone: [facility] 01-28-2022 16:11-0400 Systolic blood pressure 120 mm[Hg] Jackie Praisler-Wood SYSTEMS INTEGRATION MANAGER.CASUALTY UNDERWRITER Work Phone: [facility] 01-09-2022 10:08-0400 Body temperature 97.81 [degF] Rena Demetrius SYSTEMS INTEGRATION MANAGER.CASUALTY UNDERWRITER Work Phone: [facility] 01-09-2022 10:08-0400 Body weight 66.41 kg Rena Demetrius SYSTEMS INTEGRATION MANAGER.CASUALTY UNDERWRITER Work Phone: [facility] 01-09-2022 10:08-0400 Diastolic blood pressure 78 mm[Hg] Rena Demetrius SYSTEMS INTEGRATION MANAGER.CASUALTY UNDERWRITER Work Phone: [facility] 01-09-2022 10:08-0400 Heart rate 110 /min Rena Demetrius SYSTEMS INTEGRATION MANAGER.CASUALTY UNDERWRITER Work Phone: [facility] 01-09-2022 10:08-0400 Respiratory rate 16 /min Rena Demetrius SYSTEMS INTEGRATION MANAGER.CASUALTY UNDERWRITER Work Phone: [facility] 01-09-2022 10:08-0400 SaO2% (BldA) [Mass fraction] 98 % Rena Demetrius SYSTEMS INTEGRATION MANAGER.CASUALTY UNDERWRITER Work Phone: [facility] 01-09-2022 10:08-0400 Systolic blood pressure 132 mm[Hg] Rena Demetrius SYSTEMS INTEGRATION MANAGER.CASUALTY UNDERWRITER Work Phone: [facility] 11-27-2021 09:06-0400 Body weight 66.22 kg Evita Jimenez SYSTEMS INTEGRATION MANAGER.RISK PROFESSIONAL Work Phone: [facility] 11-27-2021 09:06-0400 Diastolic blood pressure 80 mm[Hg] Evita Jimenez SYSTEMS INTEGRATION MANAGER.RISK PROFESSIONAL Work Phone: [facility] 11-27-2021 09:06-0400 Heart rate 78 /min Evita Jimenez SYSTEMS INTEGRATION MANAGER.RISK PROFESSIONAL Work Phone: [facility] 11-27-2021 09:06-0400 Respiratory rate 16 /min Evita Jimenez SYSTEMS INTEGRATION MANAGER.RISK PROFESSIONAL Work Phone: [facility] 11-27-2021 09:06-0400 SaO2% (BldA) [Mass fraction] 98 % Evita Jimenez SYSTEMS INTEGRATION MANAGER.RISK PROFESSIONAL Work Phone: [facility] 11-27-2021 09:06-0400 Systolic blood pressure 138 mm[Hg] Evita Jimenez SYSTEMS INTEGRATION MANAGER.RISK PROFESSIONAL Work Phone: [facility] Encounters Encounter Date Encounter Type Care Provider Facility Start: 02-27-2022 End: 02-27-2022 ambulatory JOSE BRAUN Facility:[facility] Start: 02-27-2022 End: 02-27-2022 Patient encounter procedure Evita Jimenez SYSTEMS INTEGRATION MANAGER.RISK PROFESSIONAL Work Phone: [facility] Plan of Treatment Date Care Activity Detail Author Start: 02-27-2023 3 comp foot exam completed DIABETIC FOOT EXAM [facility] Start: 12-01-2022 FECAL OCCULT BLOOD FECAL OCCULT BLOO D [facility] Start: 11-27-2022 3 comp foot exam completed DIABETIC FOOT EXAM [facility] Start: 11-27-2022 Hepatitis B surface antibody level LDL CHOLESTEROL [facility] Start: 05-30-2022 Hemoglobin A1c/Hemoglobin.total in Blood HBA1C [facility] Start: 05-11-2022 End: 02-05-2023 ALBUMIN/CREAT RATIO RND UR ALBUMIN/CREAT RATIO RND UR Lab Routine Type 2 diabetes mellitus without complication, without long-term current use of insulin (HCC) Expected: 05/11/2022 (Approximate), Expires: 02/05/2023 [facility] Work Phone: Immunizations Immunization Date Immunization Notes Care Provider Jayda reed 02-25-2022 influenza, high dose seasonal, preservative-free Evita Jimenez APRN.RISK PROFESSIONAL Work Phone: [facility] Work Phone: 06-28-2019 influenza, high dose seasonal, preservative-free Russ Lama MA [facility] 03-11-2018 influenza, high dose seasonal, preservative-free Russ Lama MA [facility] Work Phone: 12-10-2017 pneumococcal conjuga te vaccine, 13 valent Russ Lama MA [facility] 06-07-2017 influenza, high dose seasonal, preservative-free Russ Lama MA [facility] 05-12-2016 influenza, high dose seasonal, preservative-free Russ Lama MA [facility] 04-08-2011 pneumococcal polysaccharide vaccine, 23 valent Russ Lama MA [facility] 09-25-2010 tetanus toxoid, redu binta diphtheria toxoid, and acellular pertussis vaccine, adsorbed Russ Lama MA [facility] 04-11-2007 zoster vaccine, live Russ Lama MA [facility] NEGATED: Highlighted row has not occurred!11-27-2021 COVID-19 vaccine, age 12+ yr ([employer] - [facility] [employer]) Evita Jimenez APRN.[facility] Work Phone: [facility] Work Phone: Payers Date Payer Category Payer Medicare [id number] 2011 Private Health Insurance [employer]ET[employer] A ETNA MEDICARE SUPPLEMENT [id number] 2011-Present [phone] [address] [address] [place] [address] Indemnity [id number] 2011 Private Health Insurance [employer] A ETNA MEDICARE SUPPLEMENT [id number] 2011-Present [phone] [address] [address] [place] [address] Indemnity [id number] 2005 Medicare MEDICARE MEDICAR E A AND B [id number] 2005-Present [phone] [place] [address] Medicare [id number] 2005 Medicare MEDICARE MEDICAR E A AND B [id number] 2005-Present [phone] [place] [address] Medicare [id number] 2005 Medicare [id number] Social History Date Type Detail Facility Start: 10-30-2015 End: 01-09-2022 Tobacco smoking status NHIS Never smoked tobacco [facility] Start: 10-30-2015 End: 01-09-2022 Tobacco use and exposure Smokeless tobacco non-user [facility] Start: 02-14-2021 End: 02-27-2022 Alcohol intake Not Asked [facility] Start: 1940 Sex Assigned At Not on file [facility] Start: 11-17-2021 End: 02-27-2022 Exposure to SARS-CoV-2 (event) Not sure [facility] Work Phone: Start: 01-19-2022 End: 01-29-2022 Exposure to SARS-CoV-2 (event) Unable to assess [facility] Work Phone: Clinical Notes 11-16-2016 to 02-27-2022 Patient InstructionsEvita Jimenez APRN.RISK PROFESSIONAL - 02/27/2022 8:20 AM EDTTanu Jimenez APRN.RISK PROFESSIONAL - 01/29/2022 1:40 PM EDTPatient InstructionsTelephone Encounter - Camilla Cox ADMINISTRATIVE VOLUNTEER - 01/29/2022 8:45 AM EDT Note Date & Type Note Facility 02-27-2022 Note HNO ID: [id number] Author: Evita Jimenez APRN.RISK PROFESSIONAL Service: ? Author Type: Nurse Specialist Type: Progress Notes Filed: 02/27/2022 8:59 AM Note Text: SUBJECTIVE: DILATED RETINAL EXAM due on 06/03/2019 DTAP,TDAP,TD(2 - Td or Tdap) due on 09/25/2020 DEPRESSION ASSESSMENT Never done URINE ALBUMIN:CREATININE RATIO due on 01/24/2022 HPI Alexander Xiao is a 81 year old female. PMH significant for ACTIVE PROBLEM LIST Hypothyroidism Hypercholesteremia Dm (Diabetes Mellitus) (Hcc) HPI excerpted from previous visits: Last seen by Jose Braun MD 07/2020. She notes she left at her last visit because she did not want to wear down. Left without being seen. Presents with her who helps with history of present illness. Notes memory is significantly decreased, can get lost. Reports able to complete ADLs and IADLs without difficulty. indicates he works 4 hours/day. Notes often forgets that he is working. Notes she exercises and feels well with this. Reports not needing help at home at this time. Video visit 01/29/2022 for Covid19. Prescribed paxlovid. [facility] 02/02/2022 for COVID-19 virus infection, dehydration, diarrhea, syncope, weakness. Review of outside records shows She presented to the emergency department with confusion weakness and a syncopal episode. Notes indicate she had a syncopal episode while her was calling EMS for her symptoms. Both with diagnosis of COVID 1 week prior. Reported both have been having diarrhea. She noted increased weakness and lightheadedness. History primarily received from . Exam was unremarkable. Notes indicate that she was too weak to go home. was being admitted to the hospital. EKG 's unremarkable. She was admitted for observation. CBC and CMP overall unremarkable, total protein and albumin were reduced. . She was not treated fwith COVID-19 specific medication during hospitalization. CXR consistent with pneumonia, emphysema. HPI primarily from . Today reports was not taking medications as ordered for a period of time about one month ago. Weakness: resolving Oral intake: normal intake Mobility:active within the home Fever: no SOB: no Cough:no Diarrhea: resolved; ocassional use of imodium Syncope: no recurrence Continue to note decreased memory, has declined hydrochloric acid operator in the past. Prefers to not take any additional medications at this time. notes she at times declines medications, will fight him about it. DIABETES MELLITUS: Does not check blood sugars at home. Feeling well with current medications. Taking consistently. Without report of excessive thirst or increased frequency of urination, chest pain or dyspnea , numbness, tingling or pain in extremities, new or unusual visual symptoms, low sugar/hypoglycemic reactions, weight loss/gain, lightheadedness/dizziness and bowel changes/loose stools. Patient's last HgA1C was Hemoglobin A1C (%) Date Value 11/27/2021 7.7 01/24/2021 7.5 12/25/2019 6.8 Hemoglobin A1C (POCT) (%) Date Value 07/31/2020 6.7 ) Last 14 Encounter BP Readings: Date: BP: 01/28/2022 120/82 01/09/2022 132/78 11/27/2021 138/80 02/14/2021 142/82 01/08/2020 130/70 06/28/2019 114/68 12/16/2018 114/58 06/13/2018 116/64 02/11/2018 122/82 12/10/2017 112/72 06/08/2017 142/82 06/07/2017 120/60 11/16/2016 118/62 05/12/2016 112/70 Creatinine Date Value Ref Range Status 11/27/2021 0.70 0.58 - 0.96 mg/dL Final 01/24/2021 0.70 0.58 - 0.96 mg/dL Final 12/25/2019 0.72 0.58 - 0.96 mg/dL Final 06/20/2019 0.65 0.58 - 0.96 mg/dL Final Review of Systems Constitutional: Negative. Respiratory: Negative. Cardiovascular: Negative. Endocrine: Negative. Objective BP 122/80 Pulse 83 Resp 16 Wt 63.5 kg (140 lb) SpO2 98% BMI 21.29 kg/m? Physical Exam Vitals and nursing note reviewed. Constitutional: Appearance: Normal appearance. HENT: Head: Normocephalic and atraumatic. Eyes: Conjunctiva/sclera: Conjunctivae normal. Cardiovascular: Rate and Rhythm: Normal rate and regular rhythm. Pulses: Normal pulses. Heart sounds: Normal heart sounds. Pulmonary: Effort: Pulmonary effort is normal. Breath sounds: Normal breath sounds. Abdominal: General: Bowel sounds are normal. Palpations: Abdomen is soft. Musculoskeletal: Right lower leg: No edema. Left lower leg: No edema. Feet: Right foot: Protective Sensation: 10 sites tested. 10 sites sensed. Skin integrity: Dry skin present. Toenail Condition: Right toenails are abnormally thick. Fungal disease present. Left foot: Protective Sensation: 10 sites tested. 10 sites sensed. Skin integrity: Dry skin present. Toenail Condition: Left toenails are normal. Skin: General: Skin is warm and dry. Neurological: Mental Status: She is alert. Mental status is at baseline. Psychiatric: Attention and Perception: Attention normal. Mood and Af (more content not included)... [facility] 02-27-2022 Instructions Evita Jimenez APRN.CNS - 02/27/2022 8:40 AM EDT Let us know if needing additional help at home or wanting to follow up with hydrochloric acid operator regarding memory documented in this encounter [facility] 02-27-2022 History of Present illness Narrative SUBJECTIVE: DILATED RETINAL EXAM due on 06/03/2019 DTAP,TDAP,TD(2 - Td or Tdap) due on 09/25/2020 DEPRESSION ASSESSMENT Never done URINE ALBUMIN:CREATININE RATIO due on 01/24/2022 HPI Alexander Xiao is a 81 year old female. PMH significant for ACTIVE PROBLEM LIST Hypothyroidism Hypercholesteremia Dm (Diabetes Mellitus) (Hcc) HPI excerpted from previous visits: Last seen by Jose Braun MD 07/2020. She notes she left at her last visit because she did not want to wear down. Left without being seen. Presents with her who helps with history of present illness. Notes memory is significantly decreased, can get lost. Reports able to complete ADLs and IADLs without difficulty. indicates he works 4 hours/day. Notes often forgets that he is working. Notes she exercises and feels well with this. Reports not needing help at home at this time. Video visit 01/29/2022 for Covid19. Prescribed paxlovid. [facility] 02/02/2022 for COVID-19 virus infection, dehydration, diarrhea, syncope, weakness. Review of outside records shows She presented to the emergency department with confusion weakness and a syncopal episode. Notes indicate she had a syncopal episode while her was calling EMS for her symptoms. Both with diagnosis of COVID 1 week prior. Reported both have been having diarrhea. She noted increased weakness and lightheadedness. History primarily received from . Exam was unremarkable. Notes indicate that she was too weak to go home. was being admitted to the hospital. EKG 's unremarkable. She was admitted for observation. CBC and CMP overall unremarkable, total protein and albumin were reduced. . She was not treated fwith COVID-19 specific medication during hospitalization. CXR consistent with pneumonia, emphysema. HPI primarily from . Today reports was not taking medications as ordered for a period of time about one month ago. Weakness: resolving Oral intake: normal intake Mobility:active within the home Fever: no SOB: no Cough:no Diarrhea: resolved; ocassional use of imodium Syncope: no recurrence Continue to note decreased memory, has declined hydrochloric acid operator in the past. Prefers to not take any additional medications at this time. notes she at times declines medications, will fight him about it. DIABETES MELLITUS: Does not check blood sugars at home. Feeling well with current medications. Taking consistently. Without report of excessive thirst or increased frequency of urination, chest pain or dyspnea , numbness, tingling or pain in extremities, new or unusual visual symptoms, low sugar/hypoglycemic reactions, weight loss/gain, lightheadedness/dizziness and bowel changes/loose stools. Patient's last HgA1C was Hemoglobin A1C (%) Date Value 11/27/2021 7.7 01/24/2021 7.5 12/25/2019 6.8 Hemoglobin A1C (POCT) (%) Date Value 07/31/2020 6.7 ) Last 14 Encounter BP Readings: Date: BP: 01/28/2022 120/82 01/09/2022 132/78 11/27/2021 138/80 02/14/2021 142/82 01/08/2020 130/70 06/28/2019 114/68 12/16/2018 114/58 06/13/2018 116/64 02/11/2018 122/82 12/10/2017 112/72 06/08/2017 142/82 06/07/2017 120/60 11/16/2016 118/62 05/12/2016 112/70 Creatinine Date Value Ref Range Status 11/27/2021 0.70 0.58 - 0.96 mg/dL Final 01/24/2021 0.70 0.58 - 0.96 mg/dL Final 12/25/2019 0.72 0.58 - 0.96 mg/dL Final 06/20/2019 0.65 0.58 - 0.96 mg/dL Final Review of Systems Constitutional: Negative. Respiratory: Negative. Cardiovascular: Negative. Endocrine: Negative. Objective BP 122/80 Pulse 83 Resp 16 Wt 63.5 kg (140 lb) SpO2 98% BMI 21.29 kg/m Physical Exam Vitals and nursing note reviewed. Constitutional: Appearance: Normal appearance. HENT: Head: Normocephalic and atraumatic. Eyes: Conjunctiva/sclera: Conjunctivae normal. Cardiovascular: Rate and Rhythm: Normal rate and regular rhythm. Pulses: Normal pulses. Heart sounds: Normal heart sounds. Pulmonary: Effort: Pulmonary effort is normal. Breath sounds: Normal breath sounds. Abdominal: General: Bowel sounds are normal. Palpations: Abdomen is soft. Musculoskeletal: Right lower leg: No edema. Left lower leg: No edema. Feet: Right foot: Protective Sensation: 10 sites tested. 10 sites sensed. Skin integrity: Dry skin present. Toenail Condition: Right toenails are abnormally thick. Fungal disease present. Left foot: Protective Sensation: 10 sites tested. 10 sites sensed. Skin integrity: Dry skin present. Toenail Condition: Left toenails are normal. Skin: General: Skin is warm and dry. Neurological: Mental Status: She is alert. Mental status is at baseline. Psychiatric: Attention and Perception: Attention normal. Mood and Affect: Mood is not elated. Speech: Speech normal. ALLERGIES No Known Allergies Medication triamcinolone acetonide (KENALOG) 0.1 % cream Apply 1 application to affected area three times daily. Apply sparingly to area for rash/itching. levothyroxine (SYNTHROID) 88 mcg tablet Take 1 pill daily except one day per week take 1.5 pills (total 7.5 pills per week) metFORMIN (GLUCOPHAGE) 500 mg tablet Take 2 tablets by mouth twice daily and take 1 tablet daily at lunch simvastatin (ZOCOR) 40 mg tablet Take 1 tablet by mouth daily at bedtime. multivitamin tablet Take 1 tablet by mouth once daily. PAST MEDICAL HISTORY Diagnosis Date DM (diabetes mellitus) (HCC) History of endometrial cancer 2000 with radiation treatment Hypercholesteremia Hypothyroidism Serum calcium elevated 11/16/2016 Normal on 05/2017 labs Social History Tobacco Use Smoking status: Never Smokeless tobacco: Never Component Latest Ref Rng & Units 07/31/2020 01/24/2021 Protein, Total 6.3 - 8.0 g/dL 6.8 Albumin 3.9 - 4.9 g/dL 4.3 Calcium 8.5 - 10.2 mg/dL 10.1 Bilirubin, Total 0.2 - 1.3 mg/dL 0.6 Alkaline Phosphatase 34 - 123 U/L 59 AST 13 - 35 U/L 20 Glucose 74 - 99 mg/dL 169 (H) BUN 7 - 21 mg/dL 15 Creatinine 0.58 - 0.96 mg/dL 0.70 Sodium 136 - 144 mmol/L 139 Potassium 3.7 - 5.1 mmol/L 4.2 Chloride 97 - 105 mmol/L 101 CO2 22 - 30 mmol/L 26 Anion Gap 9 - 18 mmol/L 12 ALT 7 - 38 U/L 14 eGFR- >60 eGFR-All Other Races . >60 WBC 3.70 - 11.00 k/uL 4.62 RBC 3.90 - 5.20 m/uL 4.67 Hemoglobin 11.5 - 15.5 g/dL 14.0 Hematocrit 36.0 - 46.0 % 42.9 MCV 80.0 - 100.0 fL 91.9 MCH 26.0 - 34.0 pG 30.0 MCHC 30.5 - 36.0 g/dL 32.6 RDW-CV 11.5 - 15.0 % 13.2 Platelet Count 150 - 400 k/uL 213 MPV 9.0 - 12.7 fL 10.3 Absolute nRBC <0.01 k/uL <0.01 Cholesterol, Total <200 mg/dL 160 Triglyceride <150 mg/dL 96 HDL Cholesterol >39 mg/dL 60 LDL Cholesterol <100 mg/dL 81 Non HDL Cholesterol <130 mg/dL 100 Fasting Time hrs 12 VLDL Cholesterol <30 mg/dL 19 TC:HDL Ratio <5.10 2.67 LDL:HDL Ratio <2.54 1.35 Creatinine, Ur Random (UCRR) 20 - 300 mg/dL 97.6 Albumin, Urine Random mg/L 30.2 Albumin/Creat Ratio <30 mg/g 31 (H) Hemoglobin A1C 4.3 - 5.6 % 7.5 (H) Estimated Average Glucose mg/dL 169 Hemoglobin A1C (POCT) 4.2 - 5.6 % 6.7 (A) TSH 0.270 - 4.200 uU/mL 3.610 Free T4 0.9 - 1.7 ng/dL 1.2 Vitamin D 25 Hydroxy 31.0 - 80.0 ng/mL 42.6 ASSESSMENT/PLAN: ASSESSMENT/PLAN: 1. COVID-19 virus infection - ICD9: 079.89, ICD10: U07.1 (primary diagnosis) Symptoms resolved, back to baseline, no recurrence of syncope. 2. Screening for diabetic retinopathy - ICD9: V80.2, ICD10: Z13.5 - CONSULT TO OPHTHALMOLOGY 3. Encounter for immunization - ICD9: V03.89, ICD10: Z23 - TDAP VACCINE AGE 7+ IM 4. Type 2 diabetes mellitus without complication, without long-term current use of insulin (HCC) - ICD9: 250.00, ICD10: E11.9 Stable, currently controlled, continue to monitor. - ALBUMIN/CREAT RATIO RND UR - COMP METABOLIC PANEL - CBC + DIFF - HGB A1C - LIPID PANEL BASIC 5. Hypercholesteremia - ICD9: 272.0, ICD10: E78.00 Stable, currently controlled, continue to monitor. - COMP METABOLIC PANEL - CBC + DIFF - LIPID PANEL BASIC 6. Acquired hypothyroidism - ICD9: 244.9, ICD10: E03.9 Stable, currently controlled, continue to monitor. - COMP METABOLIC PANEL - CBC + DIFF 7. Syncope, unspecified syncope type - ICD9: 780.2, ICD10: R55 no recurrence - CBC + DIFF 8. Diarrhea, unspecified type - ICD9: 787.91, ICD10: R19.7 Resolved - CBC + DIFF 9. Memory problem - ICD9: 780.93, ICD10: R41.3 Declines hydrochloric acid operator / further evaluation at this time. Prefers to not take any additional medications at this time. would like to speak with SW about community resources. Recheck memory at next visit, follow up as indicated/willing. - PRIMARY CARE SOCIAL WORK CONSULT Evita Jimenez APRN.CNS Medical Decision Making: Data: Independent interpretation of test from other physician/QHCP Risk: Moderate: Drug management Medical Decision Making Level: 4 - Moderate documented in this encounter [facility] 01-29-2022 Note HNO ID: [id number] Author: Evita Jimenez APRN.RISK PROFESSIONAL Service: ? Author Type: Nurse Specialist Type: Progress Notes Filed: 01/29/2022 1:51 PM Note Text: Telemedicine Follow-up for COVID-19 Infection Audio only was used for evaluation of this patient. Location of patient: [facility] Alexander Xiao is a 81 year old female who was diagnosed with COVID-19 on 01/28/2022 with symptoms starting on No data recorded Her tested positive for COVID-19 4 days prior to her visit in urgent care yesterday, January 28, 2022. She was asymptomatic. She requested follow-up visit today to discuss treatment options. Today reports no symptoms. Since diagnosis, symptoms are stable. OTC meds/remedies that patient has tried: none She reports that she has never smoked. She has never used smokeless tobacco. OBJECTIVE VIDEO EXAM (if available) GENERAL: Alert oriented answering questions appropriately without cough wheeze or shortness of breath noted ASSESSMENT/PLAN (U07.1) COVID-19 virus infection (primary encounter diagnosis) - Symptoms stable or improving, continue self monitoring This patient encounter involved the screening or treatment of novel coronavirus infection (COVID-19). Nirmatrelvir/Ritonavir (Paxlovid) Eligibility and Patient Discussion [facility] Formulary Restriction Criteria: Adult outpatients 18 years and older with ALL of the following: [x] Patient has positive SARS-COV-2 viral test (PCR or antigen test) during current illness [x] Patient has symptoms for 5 days or less [x] Not requiring hospitalization at any time for management of COVID-19 [x] Not requiring supplemental oxygen or a change in baseline supplemental oxygen [x] Not utilized for pre-exposure or post-exposure prophylaxis for prevention of COVID-19 [x] Patient does not have severe renal impairment (eGFR < 30 mL/min) or severe hepatic impairment (Child-Wen Class C) [x] Meeting at least one of the criteria for high risk of progression to severe COVID-19: [x] Age over 65 years [] Cancer [] Chronic kidney disease [] Chronic liver disease [] Chronic lung diseases, including cystic fibrosis [] Dementia or other neurological conditions [] Diabetes (type 1 or type 2) [] Disabilities, including Down syndrome and neurodevelopmental disorders [] Heart conditions [] HIV infection [] Immunocompromised state [] Mental health conditions [] Medical related technological dependence (tracheostomy, gastrostomy, or positive pressure ventilation (not related to COVID) [] Overweight and obesity (BMI greater or equal to 25 for adults) [] Physical inactivity [] [] Sickle cell disease or thalassemia [] Smoking, current or former [] Solid organ or blood stem cell transplant [] Stroke or cerebrovascular disease [] Substance use disorders [] Tuberculosis [] People from racial and ethnic minority groups Criteria above are met: Yes Date of Positive Test:01/28/2022 Date of Symptom Onset: 01/28/2022 Patient received COVID vaccine: Yes Drug-Drug interactions reviewed: Yes. Drug interactions were identified and the following actions were taken To hold simvastatin while taking paxlovid, resume once completed . I have discussed the use of the investigational therapeutic, nirmatrelvir/ritonavir, for the treatment of mild to moderate COVID-19 and its use under Emergency Use Authorization with the patient. The patient was informed that nirmatrelvir/ritonavir is not an FDA approved drug and that it is authorized for use under this Emergency Use Authorization. The patient was also informed of the significant known benefits and potential risks of nirmatrelvir/ritonavir, and the extent to which such potential risks and benefits are unknown. The patient was informed that there is mandatory reporting of all medication errors and serious adverse events potentially related to nirmatrelvir/ritonavir treatment within 7 calendar days from the onset of the event and that events up to 28 days after completion of therapy need to be reported. The discussion included alternatives to receiving nirmatrelvir/ritonavir, including clinical trials, and potential the risks and benefits of those alternatives. The patient was provided electronically with the Fact Sheet for Patients, Parents and Caregivers . The patient was also instructed that in addition to the treatment with nirmatrelvir/ritonavir, he/she should continue to self-isolate and use infection control measures (e.g., wear mask, isolate, social distance, avoid sharing personal items, clean and disinfect high touch surfaces, and frequent handwashing) according to CDC guidelines. The patient stated understanding and gave verbal consent to proceeding with nirmatrelvir/ritonavir treatment. Evita Jimenez APRN.RISK PROFESSIONAL January 29, 2022 1:47 PM 20 min in call [facility] 01-29-2022 History of Present illness Narrative Telemedicine Follow-up for COVID-19 Infection Audio only was used for evaluation of this patient. Location of patient: [facility] Alexander Xiao is a 81 year old female who was diagnosed with COVID-19 on 01/28/2022 with symptoms starting on No data recorded Her tested positive for COVID-19 4 days prior to her visit in urgent care yesterday, January 28, 2022. She was asymptomatic. She requested follow-up visit today to discuss treatment options. Today reports no symptoms. Since diagnosis, symptoms are stable. OTC meds/remedies that patient has tried: none She reports that she has never smoked. She has never used smokeless tobacco. OBJECTIVE VIDEO EXAM (if available) GENERAL: Alert oriented answering questions appropriately without cough wheeze or shortness of breath noted ASSESSMENT/PLAN (U07.1) COVID-19 virus infection (primary encounter diagnosis) - Symptoms stable or improving, continue self monitoring This patient encounter involved the screening or treatment of novel coronavirus infection (COVID-19). Nirmatrelvir/Ritonavir (Paxlovid) Eligibility and Patient Discussion [facility] Formulary Restriction Criteria: Adult outpatients 18 years and older with ALL of the following: [x] Patient has positive SARS-COV-2 viral test (PCR or antigen test) during current illness [x] Patient has symptoms for 5 days or less [x] Not requiring hospitalization at any time for management of COVID-19 [x] Not requiring supplemental oxygen or a change in baseline supplemental oxygen [x] Not utilized for pre-exposure or post-exposure prophylaxis for prevention of COVID-19 [x] Patient does not have severe renal impairment (eGFR < 30 mL/min) or severe hepatic impairment (Child-Wen Class C) [x] Meeting at least one of the criteria for high risk of progression to severe COVID-19: [x] Age over 65 years [] Cancer [] Chronic kidney disease [] Chronic liver disease [] Chronic lung diseases, including cystic fibrosis [] Dementia or other neurological conditions [] Diabetes (type 1 or type 2) [] Disabilities, including Down syndrome and neurodevelopmental disorders [] Heart conditions [] HIV infection [] Immunocompromised state [] Mental health conditions [] Medical related technological dependence (tracheostomy, gastrostomy, or positive pressure ventilation (not related to COVID) [] Overweight and obesity (BMI greater or equal to 25 for adults) [] Physical inactivity [] [] Sickle cell disease or thalassemia [] Smoking, current or former [] Solid organ or blood stem cell transplant [] Stroke or cerebrovascular disease [] Substance use disorders [] Tuberculosis [] People from racial and ethnic minority groups Criteria above are met: Yes Date of Positive Test:01/28/2022 Date of Symptom Onset: 01/28/2022 Patient received COVID vaccine: Yes Drug-Drug interactions reviewed: Yes. Drug interactions were identified and the following actions were taken To hold simvastatin while taking paxlovid, resume once completed . I have discussed the use of the investigational therapeutic, nirmatrelvir/ritonavir, for the treatment of mild to moderate COVID-19 and its use under Emergency Use Authorization with the patient. The patient was informed that nirmatrelvir/ritonavir is not an FDA approved drug and that it is authorized for use under this Emergency Use Authorization. The patient was also informed of the significant known benefits and potential risks of nirmatrelvir/ritonavir, and the extent to which such potential risks and benefits are unknown. The patient was informed that there is mandatory reporting of all medication errors and serious adverse events potentially related to nirmatrelvir/ritonavir treatment within 7 calendar days from the onset of the event and that events up to 28 days after completion of therapy need to be reported. The discussion included alternatives to receiving nirmatrelvir/ritonavir, including clinical trials, and potential the risks and benefits of those alternatives. The patient was provided electronically with the Fact Sheet for Patients, Parents and Caregivers . The patient was also instructed that in addition to the treatment with nirmatrelvir/ritonavir, he/she should continue to self-isolate and use infection control measures (e.g., wear mask, isolate, social distance, avoid sharing personal items, clean and disinfect high touch surfaces, and frequent handwashing) according to CDC guidelines. The patient stated understanding and gave verbal consent to proceeding with nirmatrelvir/ritonavir treatment. Evita Jimenez APRN.CNS January 29, 2022 1:47 PM 20 min in call documented in this encounter [facility] 01-29-2022 Instructions Evita Jimenez APRN.CNS - 01/29/2022 1:06 PM EDT Beginning Home Isolation Isolation is used to separate people infected with SARS-CoV-2, the virus that causes COVID-19, from people who are not infected. People who are in isolation should stay home until it s safe for them to be around others. In the home, anyone sick or infected should separate themselves from others by staying in a specific sick room or area and using a separate bathroom (if available). Isolation or Quarantine: What's the difference? Quarantine keeps someone who might have been exposed to the virus away from others. Isolation keeps someone who is infected with the virus away from others, even in their home. Who needs to isolate People who have COVID-19 People who have symptoms of COVID-19 and are able to recover at home People who have no symptoms (are asymptomatic) but have tested positive for infection with SARS-CoV-2 Steps to take Stay home except to get medical care Monitor your symptoms. Stay in a separate room from other household members, if possible Use a separate bathroom, if possible Avoid contact with other members of the household and pets Don t share personal household items, like cups, towels, and utensils Wear a mask when around other people, if you are able to When to seek emergency medical attention Look for emergency warning signs* for COVID-19. If someone is showing any of these signs, seek emergency medical care immediately: Trouble breathing Persistent pain or pressure in the chest New confusion Inability to wake or stay awake Bluish lips or face *This list is not all possible symptoms. Please call your medical provider for any other symptoms that are severe or concerning to you. Call 911 or call ahead to your local emergency facility: Notify the continuous drier operator that you are seeking care for someone who has or may have COVID-19. Ending Home Isolation - When you can be around others after you had or likely had COVID-19 When you can be around others after you had or likely had COVID-19 If You Test Positive for COVID-19 (Isolation) Everyone, regardless of vaccination status: Stay home for 5 days. Note: Day 0 is your first day of symptoms or the date of collection of a positive viral test if no symptoms. Day 1 is the first full day after symptoms developed or test specimen was collected. If you have no symptoms or your symptoms are resolving after 5 days, you can leave your house. Continue to wear a mask around others for 5 additional days. If you have a fever, continue to stay home until your fever resolves, even if it is longer than 5 days. If You Were Exposed to Someone with COVID-19 (Quarantine) If you: 1. Have been boosted OR 2. Completed the primary series of Pfizer or Moderna vaccine within the last 6 months OR 3. Completed the primary series of J&J vaccine within the last 2 months THEN: 1. Wear a mask around others for 10 days. 2. Test on day 5, if possible. If you develop symptoms get a test and stay home. If You Were Exposed to Someone with COVID-19 (Quarantine) If you: 1. Completed the primary series of Pfizer or Moderna vaccine over 6 months ago and are not boosted OR 2. Completed the primary series of J&J over 2 months ago and are not boosted OR 3. Are unvaccinated THEN: 1. Stay home for 5 days. After that continue to wear a mask around others for 5 additional days. 2. If you can't quarantine you must wear a mask for 10 days. 3. Test on day 5 if possible. If you develop symptoms get a test and stay home. I had COVID-19 or I tested positive for COVID-19 and I have a weakened immune system If you have a weakened immune system (immunocompromised) due to a health condition or medication, you might need to stay home and isolate longer than 10 days. Talk to your healthcare provider for more information. Your doctor may work with an infectious disease expert at your local health department to determine when you can be around others. How to Manage Common Symptoms Associated with COVID for Adults Fever- Fever is a temperature over 100.4 F and can occur when the body is fighting an infection. To help treat a fever: Drink plenty of fluids and stay well hydrated. Eat small amounts of easy to digest food. Rest. Your body needs rest to recover, but getting up and moving around the house frequently is a good idea. You should try to continue doing your normal daily activities (bathing, toileting, grooming, cooking), though you will probably feel tired, and need to rest often. Avoid any heavy activity or exercise, as this will increase your body temperature. Dress in light clothing and stay covered in a light sheet. Keep the room temperature cool. Take a slightly warm (not cold or cool) bath, or apply damp washcloths to the forehead and wrists. Cough- Cough is a common symptom associated with COVID and can be bothersome. To help treat a cough: Stay well hydrated. Try warm water or tea with lemon and/or honey to help soothe the cough. Use a humidifier to add moisture to the air. Try a product with menthol, like a cough drop or a rub for your chest such as Vicks, which can help reduce cough. Try cough drops. Avoid smoking and other strong odors or perfumes. Try breathing exercises to keep your lungs open and clear. Take a big deep breath through your nose and hold for 5 seconds before slowly releasing. Repeat frequently, while you are awake. Congestion- Runny nose or nasal congestion can occur with COVID. Treatment can help relieve symptoms: Try OTC nasal saline spray, or nasal saline rinse to relieve mucus congestion. Nasal strips can help keep nasal passages open, to increase airflow. Elevating your head with an extra pillow in bed can help reduce congestion. Using a humidifier can increase moisture in the air, and make breathing easier. Sore Throat- Another common symptom with COVID, can be managed at home by: Stay well hydrated. Gargle with salt water - mix teaspoon salt with 1 cup of warm water and gargle. This helps to loosen mucus in the back of the throat and may reduce discomfort. Try ice chips, popsicles or lozenges to soothe the throat. Nausea/Vomiting/Diarrhea- These are common symptoms, and staying hydrated is most important. If you are nauseous or vomiting, start with small sips of water every 10-15 minutes and increase as tolerated. You can try sucking an ice cube too. If tolerating, you can try pedialyte or Gatorade, or flat sprite or suresh-urbano. Start slowly and increase as you are able to. Instead of meals, try smaller, more frequent snacks. Try eating bland foods like crackers, toast, rice, and applesauce. Avoid spicy, greasy or fried foods and dairy containing foods. Even if you aren't feeling hungry due to lack of smell or taste, it is important to try to take in some food when you are able. After drinking and eating, rest in an upright position for up to two hours as needed to help decrease nauseous feelings. Try closing your eyes, avoid moving and watching TV. Avoid strong odors that can make you feel more nauseated. When to seek emergency medical attention Look for emergency warning signs for COVID-19. If having any of these symptoms, seek emergency medical care immediately: Trouble breathing Persistent pain or pressure in the chest New confusion Inability to wake or stay awake Bluish lips or face *This list is not all possible symptoms. Please call your medical provider for any other symptoms that are severe or concerning to you. FACT SHEET FOR PATIENTS, PARENTS, AND CAREGIVERS EMERGENCY USE AUTHORIZATION (EUA) OF [place] FOR CORONAVIRUS DISEASE 2019 (COVID-19) You are being given this Fact Sheet because your healthcare provider believes it is necessary to provide you with PAXLOVID for the treatment of ylxc-bw-dnrvblor coronavirus disease (COVID-19) caused by the SARS-CoV-2 virus. This Fact Sheet contains information to help you understand the risks and benefits of taking the PAXLOVID you have received or may receive. The [place]. Food and Drug Administration (FDA) has issued an Emergency Use Authorization (EUA) to make PAXLOVID available during the COVID-19 pandemic (for more details about an EUA please see What is an Emergency Use Authorization? at the end of this document). PAXLOVID is not an FDA-approved medicine in the [place]. Read this Fact Sheet for information about PAXLOVID. Talk to your healthcare provider about your options or if you have any questions. It is your choice to take PAXLOVID. What is COVID-19? COVID-19 is caused by a virus called a coronavirus. You can get COVID-19 through close contact with another person who has the virus. COVID-19 illnesses have ranged from very zwiq-sp-xyzjqf, including illness resulting in . While information so far suggests that most COVID-19 illness is mild, serious illness can happen and may cause some of your other medical conditions to become worse. Older people and people of all ages with severe, long lasting (chronic) medical conditions like heart disease, lung disease, and diabetes, for example seem to be at higher risk of being hospitalized for COVID-19. What is PAXLOVID? PAXLOVID is an investigational medicine used to treat mazl-ys-dccyakfa COVID-19 in adults and children [12 years of age and older weighing at least 88 pounds (40 kg)] with positive results of direct SARS-CoV-2 viral testing, and who are at high risk for progression to severe COVID-19, including hospitalization or . PAXLOVID is investigational because it is still being studied. There is limited information about the safety and effectiveness of using PAXLOVID to treat people with yoyy-jk-aogsdyit COVID-19. The FDA has authorized the emergency use of PAXLOVID for the treatment of lckx-sp-yilzxhkt COVID-19 in adults and children [12 years of age and older weighing at least 88 pounds (40 kg)] with a positive test for the virus that causes COVID-19, and who are at high risk for progression to severe COVID-19, including hospitalization or , under an EUA. 1 Revised: 25 July 2021 What should I tell my healthcare provider before I take PAXLOVID? Tell your healthcare provider if you: Have any allergies Have liver or kidney disease Are or plan to become Are a child Have any serious illnesses Tell your healthcare provider about all the medicines you take, including prescription and zste-sux-pflrvck medicines, vitamins, and herbal supplements. Some medicines may interact with PAXLOVID and may cause serious side effects. Keep a list of your medicines to show your healthcare provider and pharmacist when you get a new medicine. You can ask your healthcare provider or pharmacist for a list of medicines that interact with PAXLOVID. Do not start taking a new medicine without telling your healthcare provider. Your healthcare provider can tell you if it is safe to take PAXLOVID with other medicines. Tell your healthcare provider if you are taking combined hormonal contraceptive. PAXLOVID may affect how your control pills work. Females who are able to become should use another effective alternative form of contraception or an additional barrier method of contraception. Talk to your healthcare provider if you have any questions about contraceptive methods that might be right for you. How do I take PAXLOVID? PAXLOVID consists of 2 medicines: nirmatrelvir and ritonavir. Take 2 pink tablets of nirmatrelvir with 1 white tablet of ritonavir by mouth 2 times each day (in the morning and in the evening) for 5 days. For each dose, take all 3 tablets at the same time. If you have kidney disease, talk to your healthcare provider. You may need a different dose. Swallow the tablets whole. Do not chew, break, or crush the tablets. Take PAXLOVID with or without food. Do not stop taking PAXLOVID without talking to your healthcare provider, even if you feel better. If you miss a dose of PAXLOVID within 8 hours of the time it is usually taken, take it as soon as you remember. If you miss a dose by more than 8 hours, skip the missed dose and take the next dose at your regular time. Do not take 2 doses of PAXLOVID at the same time. If you take too much PAXLOVID, call your healthcare provider or go to the nearest hospital emergency room right away. If you are taking a ritonavir-or cobicistat-containing medicine to treat hepatitis C or Human Immunodeficiency Virus (HIV), you should continue to take your medicine as prescribed by your healthcare provider. Talk to your healthcare provider if you do not feel better or if you feel worse after 5 days. Who should generally not take PAXLOVID? Do not take PAXLOVID if: You are allergic to nirmatrelvir, ritonavir, or any of the ingredients in PAXLOVID You are taking any of the following medicines: Alfuzosin Pethidine, propoxyphene Ranolazine Amiodarone, dronedarone, flecainide, propafenone, quinidine Colchicine Lurasidone, pimozide, clozapine Dihydroergotamine, ergotamine, methylergonovine Lovastatin, simvastatin Sildenafil (Revatio ) for pulmonary arterial hypertension (PAH) Triazolam, oral midazolam Apalutamide Carbamazepine, phenobarbital, phenytoin Rifampin [place] s Wort (hypericum perforatum) Taking PAXLOVID with these medicines may cause serious or life-threatening side effects or affect how PAXLOVID works. These are not the only medicines that may cause serious side effects if taken with PAXLOVID. PAXLOVID may increase or decrease the levels of multiple other medicines. It is very important to tell your healthcare provider about all of the medicines you are taking because additional laboratory tests or changes in the dose of your other medicines may be necessary while you are taking PAXLOVID. Your healthcare provider may also tell you about specific symptoms to watch out for that may indicate that you need to stop or decrease the dose of some of your other medicines. What are the important possible side effects of PAXLOVID? Possible side effects of PAXLOVID are: Allergic Reactions. Allergic reactions can happen in people taking PAXLOVID, even after only 1 dose. Stop taking PAXLOVID and call your healthcare provider right away if you get any of the following symptoms of an allergic reaction: hives trouble swallowing or breathing swelling of the mouth, lips, or face throat tightness hoarseness skin rash Liver Problems. Tell your healthcare provider right away if you have any of these signs and symptoms of liver problems: loss of appetite, yellowing of your skin and the whites of eyes (jaundice), dark-colored urine, pale colored stools and itchy skin, stomach area (abdominal) pain. Resistance to HIV Medicines. If you have untreated HIV infection, PAXLOVID may lead to some HIV medicines not working as well in the future. Other possible side effects include: altered sense of taste diarrhea high blood pressure muscle aches These are not all the possible side effects of PAXLOVID. Not many people have taken PAXLOVID. Serious and unexpected side effects may happen. PAXLOVID is still being studied, so it is possible that all of the risks are not known at this time. What other treatment choices are there? Veklury (remdesivir) is FDA-approved for the treatment of csaz-zj-bgcpglkr COVID-19 in certain adults and children. Talk with your doctor to see if Veklury is appropriate for you. Like PAXLOVID, FDA may also allow for the emergency use of other medicines to treat people with COVID-19. Go to https://www.fda.gov/emergency-pre paredness-andresponse/mcm-legal-r nvmfclvda-pyg-rbespq-framework/em sabamob-yqf-eryeoekzdnena for information on the emergency use of other medicines that are authorized by FDA to treat people with COVID-19. Your healthcare provider may talk with you about clinical trials for which you may be eligible. It is your choice to be treated or not to be treated with PAXLOVID. Should you decide not to receive it or for your child not to receive it, it will not change your standard medical care. What if I am or ? There is knockout machine operator treating women or mothers with PAXLOVID. For a mother and unborn baby, the benefit of taking PAXLOVID may be greater than the risk from the treatment. If you are , discuss your options and specific situation with your healthcare provider. It is recommended that you use effective barrier contraception or do not have sexual activity while taking PAXLOVID. If you are , discuss your options and specific situation with your healthcare provider. How do I report side effects with PAXLOVID? Contact your healthcare provider if you have any side effects that bother you or do not go away. Report side effects to FDA MedWatch at www.fda.gov/medwatch or call 2-704-WEW4607 or you can report side effects to [employer]. at the contact information provided below. Website Fax number Telephone number [employer] - Smartphone RFID How should I store PAXLOVID? Store PAXLOVID tablets at room temperature, between 68?F to 77?F (20?C to 25?C). How can I learn more about COVID-19? Ask your healthcare provider. Visit https://www.cdc.gov/COVID19. Contact your local or state public health department. What is an Emergency Use Authorization (EUA)? The [place] FDA has made PAXLOVID available under an emergency access mechanism called an Emergency Use Authorization (EUA). The EUA is supported by a Hearing Specialist of Health and Human Service (HHS) declaration that circumstances exist to justify the emergency use of drugs and biological products during the COVID-19 pandemic. PAXLOVID for the treatment of hyxp-ps-nselvofl COVID-19 in adults and children [12 years of age and older weighing at least 88 pounds (40 kg)] with positive results of direct SARS-CoV-2 viral testing, and who are at high risk for progression to severe COVID-19, including hospitalization or , has not undergone the same type of review as an FDA-approved product. In issuing an EUA under the COVID-19 public health emergency, the FDA has determined, among other things, that based on the total amount of scientific evidence available including data from adequate and well-controlled clinical trials, if available, it is reasonable to believe that the product may be effective for diagnosing, treating, or preventing COVID-19, or a serious or life-threatening disease or condition caused by COVID-19; that the known and potential benefits of the product, when used to diagnose, treat, or prevent such disease or condition, outweigh the known and potential risks of such product; and that there are no adequate, approved, and available alternatives. All of these criteria must be met to allow for the product to be used in the treatment of patients during the COVID-19 pandemic. The EUA for PAXLOVID is in effect for the duration of the COVID-19 declaration justifying emergency use of this product, unless terminated or revoked (after which the products may no longer be used under the EUA). Additional Information For general questions, visit the website or call the telephone number provided below. Website Telephone number wwwg[email or web address] (2-514-R58-QCPE) You can also go to www.[employer] or call for more information. Pfizer Distributed by [employer] [place] [address] [id number] Revised: 25 July 2021 documented in this encounter [facility] 01-29-2022 Miscellaneous Notes Phone call placed patient advised (see prior provider encounter) Patient verbalized understanding, agreed with plan of care, reported no current symptoms. Camilla Cox LPN COVID test was positive. Stay home for 5 days from symptom onset, or from positive test if she has no symptoms. If you have no symptoms or your symptoms are resolving after 5 days, you can leave your house. Continue to wear a mask around others for 5 additional days. If you have a fever, continue to stay home until your fever resolves. Treat with supportive care. Schedule consult with primary care if she is interested in discussing antiviral treatment for COVID-19. F/u with worsening symptoms; ER if severe. documented in this encounter [facility] 01-28-2022 Note HNO ID: [id number] Author: Jackie Nunes APRN.CASUALTY UNDERWRITER Service: ? Author Type: Nurse Practitioner Type: Progress Notes Filed: 01/28/2022 4:36 PM Note Text: Subjective HPI Alexander Xiao is a 81 year old female who presents with recent close exposure to COVID-19. Her tested positive for COVID 4 days ago. She denies any current symptoms. Review of Systems Constitutional: Negative for chills and fever. HENT: Negative. Negative for congestion and sore throat. Respiratory: Negative for cough and shortness of breath. Cardiovascular: Negative. Gastrointestinal: Negative for diarrhea, nausea and vomiting. Musculoskeletal: Negative for myalgias. Neurological: Negative for headaches. BP 120/82 Pulse 86 Temp 37.4 ?C (99.4 ?F) Resp 18 Wt 65 kg (143 lb 6.4 oz) SpO2 95% BMI 21.80 kg/m? PAST MEDICAL HISTORY Diagnosis Date DM (diabetes mellitus) (HCC) History of endometrial cancer 2000 with radiation treatment Hypercholesteremia Hypothyroidism Serum calcium elevated 11/16/2016 Normal on 05/2017 labs PAST SURGICAL HISTORY Procedure Laterality Date DELIVERY ONLY 1961 , low transverse COLONOSCOPY FLX DX W/COLLJ SPEC WHEN PFRMD 09/29/12 Colonoscopy DILATION AND CURETTAGE DXAND/THER NONOBSTETRIC 1990 Dilation AND curettage LAPAROSCOPY SURG CHOLECYSTECTOMY 1996 Cholecystectomy, lap PAST SURGICAL HISTORY OF 2001 stitch in urethra and catheter bag for 2 months TONSILLECTOMY HX TOTAL ABDOMINAL HYSTERECT W/WO RMVL TUBE OVARY 2000 Hysterectomy, FERNANDO-BSO ALLERGIES Patient has no known allergies. MEDICATIONS triamcinolone acetonide (KENALOG) 0.1 % cream Apply 1 application to affected area three times daily. Apply sparingly to area for rash/itching. levothyroxine (SYNTHROID) 88 mcg tablet Take 1 pill daily except one day per week take 1.5 pills (total 7.5 pills per week) metFORMIN (GLUCOPHAGE) 500 mg tablet Take 2 tablets by mouth twice daily and take 1 tablet daily at lunch simvastatin (ZOCOR) 40 mg tablet Take 1 tablet by mouth daily at bedtime. multivitamin tablet Take 1 tablet by mouth once daily. FAMILY HISTORY Problem Relation Age of Onset other (colon polyps [Other]) Father Diabetes Father Breast Cancer Mother 62 other (Other [Other]) Sister some type of uterine issue (not sure if cancer) None Brother None Brother Social History Tobacco Use Smoking status: Never Smokeless tobacco: Never Objective Physical Exam Vitals and nursing note reviewed. Constitutional: Appearance: Normal appearance. HENT: Mouth/Throat: Pharynx: Uvula midline. Cardiovascular: Rate and Rhythm: Normal rate and regular rhythm. Heart sounds: Normal heart sounds. Pulmonary: Effort: Pulmonary effort is normal. No respiratory distress. Breath sounds: Normal breath sounds. No wheezing or rales. Skin: General: Skin is warm and dry. Findings: No erythema or rash. Neurological: Mental Status: She is alert. ASSESSMENT/PLAN: 1. Close exposure to COVID-19 virus - ICD9: V01.79, ICD10: Z20.822 - ASYMPTOMATIC ELECTIVE COVID-19 Jackie Nunes APRN.[facility] 01-28-2022 History of Present illness Narrative Subjective HPI Alexander Xiao is a 81 year old female who presents with recent close exposure to COVID-19. Her tested positive for COVID 4 days ago. She denies any current symptoms. Review of Systems Constitutional: Negative for chills and fever. HENT: Negative. Negative for congestion and sore throat. Respiratory: Negative for cough and shortness of breath. Cardiovascular: Negative. Gastrointestinal: Negative for diarrhea, nausea and vomiting. Musculoskeletal: Negative for myalgias. Neurological: Negative for headaches. BP 120/82 Pulse 86 Temp 37.4 C (99.4 F) Resp 18 Wt 65 kg (143 lb 6.4 oz) SpO2 95% BMI 21.80 kg/m PAST MEDICAL HISTORY Diagnosis Date DM (diabetes mellitus) (HCC) History of endometrial cancer 2000 with radiation treatment Hypercholesteremia Hypothyroidism Serum calcium elevated 11/16/2016 Normal on 05/2017 labs PAST SURGICAL HISTORY Procedure Laterality Date DELIVERY ONLY 1961 , low transverse COLONOSCOPY FLX DX W/COLLJ SPEC WHEN PFRMD 09/29/12 Colonoscopy DILATION & CURETTAGE DX&/THER NONOBSTETRIC 1989 Dilation & curettage LAPAROSCOPY SURG CHOLECYSTECTOMY 1996 Cholecystectomy, lap PAST SURGICAL HISTORY OF 2001 stitch in urethra and catheter bag for 2 months TONSILLECTOMY HX TOTAL ABDOMINAL HYSTERECT W/WO RMVL TUBE OVARY 2000 Hysterectomy, FERNANDO-BSO ALLERGIES Patient has no known allergies. MEDICATIONS triamcinolone acetonide (KENALOG) 0.1 % cream Apply 1 application to affected area three times daily. Apply sparingly to area for rash/itching. levothyroxine (SYNTHROID) 88 mcg tablet Take 1 pill daily except one day per week take 1.5 pills (total 7.5 pills per week) metFORMIN (GLUCOPHAGE) 500 mg tablet Take 2 tablets by mouth twice daily and take 1 tablet daily at lunch simvastatin (ZOCOR) 40 mg tablet Take 1 tablet by mouth daily at bedtime. multivitamin tablet Take 1 tablet by mouth once daily. FAMILY HISTORY Problem Relation Age of Onset other (colon polyps [Other]) Father Diabetes Father Breast Cancer Mother 62 other (Other [Other]) Sister some type of uterine issue (not sure if cancer) None Brother None Brother Social History Tobacco Use Smoking status: Never Smokeless tobacco: Never Objective Physical Exam Vitals and nursing note reviewed. Constitutional: Appearance: Normal appearance. HENT: Mouth/Throat: Pharynx: Uvula midline. Cardiovascular: Rate and Rhythm: Normal rate and regular rhythm. Heart sounds: Normal heart sounds. Pulmonary: Effort: Pulmonary effort is normal. No respiratory distress. Breath sounds: Normal breath sounds. No wheezing or rales. Skin: General: Skin is warm and dry. Findings: No erythema or rash. Neurological: Mental Status: She is alert. ASSESSMENT/PLAN: 1. Close exposure to COVID-19 virus - ICD9: V01.79, ICD10: Z20.822 - ASYMPTOMATIC ELECTIVE COVID-19 Jackie Nunes APRN.CASUALTY UNDERWRITER documented in this encounter [facility] 01-28-2022 Instructions Jackie Nunes APRN.CASUALTY UNDERWRITER - 01/28/2022 4:26 PM EDT How to Protect Yourself & Others from COVID-19 Wash your hands often Wash your hands often with soap and water for at least 20 seconds especially after you have been in a public place, or after blowing your nose, coughing, or sneezing. If soap and water are not readily available, use a hand engine repairer that contains at least 60% alcohol. Cover all surfaces of your hands and rub them together until they feel dry. Avoid touching your eyes, nose, and mouth with unwashed hands. Avoid close contact Inside your home: Avoid close contact with people who are sick. If possible, maintain 6 feet between the person who is sick and other household members. Outside your home: Put 6 feet of distance between yourself and people who don't live in your household. Cover your mouth and nose with a mask when around others Masks help prevent you from getting or spreading the virus. You could spread COVID-19 to others even if you do not feel sick. Everyone should wear a mask in public settings and when around people who don't live in your household, especially when other social distancing measures are difficult to maintain. Masks should not be placed on young children under age 2, anyone who has trouble breathing, or is unconscious, incapacitated or otherwise unable to remove the mask without assistance. Cover coughs and sneezes Always cover your mouth and nose with a tissue when you cough or sneeze or use the inside of your elbow and do not spit. Throw used tissues in the trash. Immediately wash your hands with soap and water for at least 20 seconds. Clean and disinfect Clean AND disinfect frequently touched surfaces daily. This includes tables, doorknobs, light switches, countertops, handles, desks, phones, keyboards, toilets, faucets, and sinks. Monitor Your Health Daily Be alert for symptoms. Watch for fever, cough, shortness of breath, or other symptoms of COVID-19. Especially important if you are running essential errands, going into the office or workplace, and in settings where it may be difficult to keep a physical distance of 6 feet. Take your temperature if symptoms develop. Don't take your temperature within 30 minutes of exercising or after taking medications that could lower your temperature, like acetaminophen. Travel Skip events that put you in contact with large groups of people (sporting events, concerts, theme roberts, etc). Avoid unnecessary domestic and international travel, including travel through large international airports. If traveling, wipe down your airplane seat (and tray) with a disinfecting wipe. Office Visits If you have a fever, cough or shortness of breath, or are otherwise concerned you have COVID-19, we ask that you do not come to any [facility] facility without calling your primary care physician or speaking to a provider using a virtual visit using [facility]. You will be evaluated to determine if you require being seen in person or if you meet CDC guidelines for testing for COVID-19 based on symptoms, travel and exposures. If you meet criteria for testing, your [facility] provider or primary care physician will advise how to proceed with testing Immunosuppression There is no need to stop your immunosuppressive medications preemptively. If you become sick, please let your doctor know, and discuss with them prior to stopping any medications. At this point, we have no knowledge that patients on immunosuppressive medications are at higher risk of COVID-19 infection. People with weakened immune systems are at higher risk of getting severely sick from SARS-CoV-2, the virus that causes COVID-19. They may also remain infectious for a longer period of time than others with COVID-19, but we cannot confirm this until we learn more about this new virus. Steps You Can Take to Protect Your Health Continue your regular treatment plan. Don't stop any medications or treatments without talking to your doctor. Discuss any concerns about your treatment with your doctor. Keep your regularly scheduled medical appointments. Talk to your doctor about steps they are taking to reduce risk of exposure to COVID-19 in the office. Use telehealth services whenever possible if recommended by your doctor. Ensure that you are getting necessary tests prescribed by your doctor. Seek urgent medical care if you are feeling unwell. Talk to your doctor, insurer, and pharmacist about getting an emergency supply of prescription medications. Make sure you have at least 30 days of prescription medications, nbhu-piu-tnthlpn medicines, and supplies on hand in case you need or want to stay home for several weeks. Talk to your doctor or pharmacist about ways to receive your medications by mail. Take steps to care for your emotional health. Fear and anxiety about COVID-19 can be overwhelming and cause strong emotions. It is natural to feel concerned or stressed about COVID-19. - Learn more about stress and coping with anxiety here. Call your healthcare provider if stress gets in the way of your daily activities for several days in a row. If you are feeling overwhelmed with emotions like sadness, depression, or anxiety, or feel like you want to harm yourself or others: Call 190 if you feel like you want to harm yourself or others Visit the Disaster Distress Helpline call , [place] [address] Visit the National Domestic Violence Hotline or call and TTY Visit the National Suicide Prevention Lifeline or call and TTY or text Most importantly, don't panic. By following basic prevention measures such as hand hygiene and cover your cough, you are helping to keep yourself and others healthy. Additional information can be found on the CDC and [facility] web sites: https://www.cdc.gov/coronavirus/2 019-nCoV/index.html https://[facility].org/coron avirus Beginning Home Isolation Isolation is used to separate people infected with SARS-CoV-2, the virus that causes COVID-19, from people who are not infected. People who are in isolation should stay home until it s safe for them to be around others. In the home, anyone sick or infected should separate themselves from others by staying in a specific sick room or area and using a separate bathroom (if available). Isolation or Quarantine: What's the difference? Quarantine keeps someone who might have been exposed to the virus away from others. Isolation keeps someone who is infected with the virus away from others, even in their home. Who needs to isolate People who have COVID-19 People who have symptoms of COVID-19 and are able to recover at home People who have no symptoms (are asymptomatic) but have tested positive for infection with SARS-CoV-2 Steps to take Stay home except to get medical care Monitor your symptoms. Stay in a separate room from other household members, if possible Use a separate bathroom, if possible Avoid contact with other members of the household and pets Don t share personal household items, like cups, towels, and utensils Wear a mask when around other people, if you are able to When to seek emergency medical attention Look for emergency warning signs* for COVID-19. If someone is showing any of these signs, seek emergency medical care immediately: Trouble breathing Persistent pain or pressure in the chest New confusion Inability to wake or stay awake Bluish lips or face *This list is not all possible symptoms. Please call your medical provider for any other symptoms that are severe or concerning to you. Call 911 or call ahead to your local emergency facility: Notify the continuous drier operator that you are seeking care for someone who has or may have COVID-19. Ending Home Isolation - When you can be around others after you had or likely had COVID-19 When you can be around others after you had or likely had COVID-19 If You Test Positive for COVID-19 (Isolation) Everyone, regardless of vaccination status: Stay home for 5 days. Note: Day 0 is your first day of symptoms or the date of collection of a positive viral test if no symptoms. Day 1 is the first full day after symptoms developed or test specimen was collected. If you have no symptoms or your symptoms are resolving after 5 days, you can leave your house. Continue to wear a mask around others for 5 additional days. If you have a fever, continue to stay home until your fever resolves, even if it is longer than 5 days. If You Were Exposed to Someone with COVID-19 (Quarantine) If you: 1. Have been boosted OR 2. Completed the primary series of Pfizer or Moderna vaccine within the last 6 months OR 3. Completed the primary series of J&J vaccine within the last 2 months THEN: 1. Wear a mask around others for 10 days. 2. Test on day 5, if possible. If you develop symptoms get a test and stay home. If You Were Exposed to Someone with COVID-19 (Quarantine) If you: 1. Completed the primary series of Pfizer or Moderna vaccine over 6 months ago and are not boosted OR 2. Completed the primary series of J&J over 2 months ago and are not boosted OR 3. Are unvaccinated THEN: 1. Stay home for 5 days. After that continue to wear a mask around others for 5 additional days. 2. If you can't quarantine you must wear a mask for 10 days. 3. Test on day 5 if possible. If you develop symptoms get a test and stay home. I had COVID-19 or I tested positive for COVID-19 and I have a weakened immune system If you have a weakened immune system (immunocompromised) due to a health condition or medication, you might need to stay home and isolate longer than 10 days. Talk to your healthcare provider for more information. Your doctor may work with an infectious disease expert at your local health department to determine when you can be around others. How to Manage Common Symptoms Associated with COVID for Adults Fever- Fever is a temperature over 100.4 F and can occur when the body is fighting an infection. To help treat a fever: Drink plenty of fluids and stay well hydrated. Eat small amounts of easy to digest food. Rest. Your body needs rest to recover, but getting up and moving around the house frequently is a good idea. You should try to continue doing your normal daily activities (bathing, toileting, grooming, cooking), though you will probably feel tired, and need to rest often. Avoid any heavy activity or exercise, as this will increase your body temperature. Dress in light clothing and stay covered in a light sheet. Keep the room temperature cool. Take a slightly warm (not cold or cool) bath, or apply damp washcloths to the forehead and wrists. Cough- Cough is a common symptom associated with COVID and can be bothersome. To help treat a cough: Stay well hydrated. Try warm water or tea with lemon and/or honey to help soothe the cough. Use a humidifier to add moisture to the air. Try a product with menthol, like a cough drop or a rub for your chest such as Vicks, which can help reduce cough. Try cough drops. Avoid smoking and other strong odors or perfumes. Try breathing exercises to keep your lungs open and clear. Take a big deep breath through your nose and hold for 5 seconds before slowly releasing. Repeat frequently, while you are awake. Congestion- Runny nose or nasal congestion can occur with COVID. Treatment can help relieve symptoms: Try OTC nasal saline spray, or nasal saline rinse to relieve mucus congestion. Nasal strips can help keep nasal passages open, to increase airflow. Elevating your head with an extra pillow in bed can help reduce congestion. Using a humidifier can increase moisture in the air, and make breathing easier. Sore Throat- Another common symptom with COVID, can be managed at home by: Stay well hydrated. Gargle with salt water - mix teaspoon salt with 1 cup of warm water and gargle. This helps to loosen mucus in the back of the throat and may reduce discomfort. Try ice chips, popsicles or lozenges to soothe the throat. Nausea/Vomiting/Diarrhea- These are common symptoms, and staying hydrated is most important. If you are nauseous or vomiting, start with small sips of water every 10-15 minutes and increase as tolerated. You can try sucking an ice cube too. If tolerating, you can try pedialyte or Gatorade, or flat sprite or suresh-urbano. Start slowly and increase as you are able to. Instead of meals, try smaller, more frequent snacks. Try eating bland foods like crackers, toast, rice, and applesauce. Avoid spicy, greasy or fried foods and dairy containing foods. Even if you aren't feeling hungry due to lack of smell or taste, it is important to try to take in some food when you are able. After drinking and eating, rest in an upright position for up to two hours as needed to help decrease nauseous feelings. Try closing your eyes, avoid moving and watching TV. Avoid strong odors that can make you feel more nauseated. When to seek emergency medical attention Look for emergency warning signs for COVID-19. If having any of these symptoms, seek emergency medical care immediately: Trouble breathing Persistent pain or pressure in the chest New confusion Inability to wake or stay awake Bluish lips or face *This list is not all possible symptoms. Please call your medical provider for any other symptoms that are severe or concerning to you. documented in this encounter [facility] 01-09-2022 Note HNO ID: [id number] Author: Rena Romo APRN.CASUALTY UNDERWRITER Service: ? Author Type: Nurse Practitioner Type: Progress Notes Filed: 01/09/2022 10:41 AM Note Text: Subjective The history is provided by the patient and the spouse. No chinese language professor was used. GILL Xiao is a 81 year old female who presents today for CC of rash on arm by elbow, and skin lesion on left hand, between 3rd and 4th knuckle. She has had both of these for a week. She denies any new soaps lotions detergents, exposure to new plants, medications. She has used hydrocortisone with slight improvement. BP 132/78 Pulse 110 Temp 36.6 ?C (97.8 ?F) Resp 16 Wt 66.4 kg (146 lb 6.4 oz) SpO2 98% BMI 22.26 kg/m? Social History Tobacco Use Smoking status: Never Smokeless tobacco: Never PAST MEDICAL HISTORY Diagnosis Date DM (diabetes mellitus) (HCC) History of endometrial cancer 2000 with radiation treatment Hypercholesteremia Hypothyroidism Serum calcium elevated 11/16/2016 Normal on 05/2017 labs I have confirmed and edited as necessary, the [facility] Review of Systems Constitutional: Negative for chills and fever. Musculoskeletal: Negative for joint pain and myalgias. Skin: Positive for itching and rash (on anterior elbow area). Lesion on left 3rd knuckle All other systems reviewed and are negative. Objective Physical Exam Vitals and nursing note reviewed. Pulmonary: Effort: Pulmonary effort is normal. Skin: General: Skin is warm and dry. Comments: Red, macular pruritic area on left anterior elbow Small raised crusted nodule on hand, marked area. Neurological: Mental Status: She is alert and oriented to person, place, and time. Psychiatric: Mood and Affect: Affect normal. ASSESSMENT/PLAN: 1. Rash - ICD9: 782.1, ICD10: R21 (primary diagnosis) Appears to be dermatitis - triamcinolone cream to area for itching If no improvement see dermatology 2. Skin lesion - ICD9: 709.9, ICD10: L98.9 Appears to be wart, or lesion for excessive picking Duct tape as discussed If no improvement recommend follow up with dermatology Diagnosis and treatment plan were discussed and questions were answered to the patient's satisfaction. Pt acknowledged understanding of concepts and follow up plan. Specific signs and symptoms that would indicate the need for higher level of care were discussed in detail warranting prompt ER evaluation. Rena Romo APRN.CNP [facility] 01-09-2022 Instructions Rena Romo APRN.CNP - 01/09/2022 10:33 AM EDT Images from the original note were not included. Cover the wart with duct tape Cover the wart with a small piece of duct tape (not regular adhesive tape). Warts deprived of air and sun exposure sometimes without the need for treatment with acids. Remove the tape once a week. Wash the skin and rub off any wart tissue. After it has dried thoroughly overnight, reapply duct tape. The tape treatment may be needed for 8 weeks. Wart-removing medicines To get faster results with the duct tape, use a medicine such as salicylic acid If no improvement follow up with dermatology Triamcinolone cream to rash on arm/hand for itching, follow up with Dermatology if no improvement documented in this encounter [facility] 01-09-2022 History of Present illness Narrative Images from the original note were not included. Subjective The history is provided by the patient and the spouse. No chinese language professor was used. GILL Xiao is a 81 year old female who presents today for CC of rash on arm by elbow, and skin lesion on left hand, between 3rd and 4th knuckle. She has had both of these for a week. She denies any new soaps lotions detergents, exposure to new plants, medications. She has used hydrocortisone with slight improvement. BP 132/78 Pulse 110 Temp 36.6 C (97.8 F) Resp 16 Wt 66.4 kg (146 lb 6.4 oz) SpO2 98% BMI 22.26 kg/m Social History Tobacco Use Smoking status: Never Smokeless tobacco: Never PAST MEDICAL HISTORY Diagnosis Date DM (diabetes mellitus) (HCC) History of endometrial cancer 2000 with radiation treatment Hypercholesteremia Hypothyroidism Serum calcium elevated 11/16/2016 Normal on 05/2017 labs I have confirmed and edited as necessary, the [facility] Review of Systems Constitutional: Negative for chills and fever. Musculoskeletal: Negative for joint pain and myalgias. Skin: Positive for itching and rash (on anterior elbow area). Lesion on left 3rd knuckle All other systems reviewed and are negative. Objective Physical Exam Vitals and nursing note reviewed. Pulmonary: Effort: Pulmonary effort is normal. Skin: General: Skin is warm and dry. Comments: Red, macular pruritic area on left anterior elbow Small raised crusted nodule on hand, marked area. Neurological: Mental Status: She is alert and oriented to person, place, and time. Psychiatric: Mood and Affect: Affect normal. ASSESSMENT/PLAN: 1. Rash - ICD9: 782.1, ICD10: R21 (primary diagnosis) Appears to be dermatitis - triamcinolone cream to area for itching If no improvement see dermatology 2. Skin lesion - ICD9: 709.9, ICD10: L98.9 Appears to be wart, or lesion for excessive picking Duct tape as discussed If no improvement recommend follow up with dermatology Diagnosis and treatment plan were discussed and questions were answered to the patient's satisfaction. Pt acknowledged understanding of concepts and follow up plan. Specific signs and symptoms that would indicate the need for higher level of care were discussed in detail warranting prompt ER evaluation. Rena Romo APRN.RANDI documented in this encounter [facility] 12-04-2021 Miscellaneous Notes Letter mailed to pt notifying her of normal stool test. If questions to contact the office. Lashay Quinones Ma Please let her know fecal occult blood testing was negative documented in this encounter [facility] 12-02-2021 Miscellaneous Notes Patient returned call and given provider's message below and patient verbalized understanding. La Li RN Unable to reach patient. Left VM to return call to office. Please read below and advise. Rekha Montes De Oca MA Please let her know CBC, TSH, and CMP within normal limits except for elevated glucose Hemoglobin A1c is stable. May continue with current treatment for now. Recommend avoiding sugar in diet, limit portion sizes of bread potatoes rice and pasta and exercise as able daily to help keep this in control. Component Latest Ref Rng & Units 01/24/2021 11/27/2021 WBC 3.70 - 11.00 k/uL 4.62 5.46 RBC 3.90 - 5.20 m/uL 4.67 4.36 Hemoglobin 11.5 - 15.5 g/dL 14.0 13.2 Hematocrit 36.0 - 46.0 % 42.9 40.2 MCV 80.0 - 100.0 fL 91.9 92.2 MCH 26.0 - 34.0 pg 30.0 30.3 MCHC 30.5 - 36.0 g/dL 32.6 32.8 RDW-CV 11.5 - 15.0 % 13.2 13.3 Platelet Count 150 - 400 k/uL 213 205 MPV 9.0 - 12.7 fL 10.3 10.6 Neut% % 52.3 Abs Neut (ANC) 1.45 - 7.50 k/uL 2.85 Lymph% % 34.2 Abs Lymph 1.00 - 4.00 k/uL 1.87 [place]% % 9.5 Abs [place] <0.87 k/uL 0.52 Eosin% % 2.9 Abs Eosin <0.46 k/uL 0.16 Baso% % 0.9 Abs Baso <0.11 k/uL 0.05 Immature Gran % % 0.2 IMMATURE GRANS (ABS) <0.10 k/uL <0.03 NRBC /100 WBC 0.0 Absolute nRBC <0.01 k/uL <0.01 <0.01 DTYPE Auto Protein, Total 6.3 - 8.0 g/dL 6.8 6.5 Albumin 3.9 - 4.9 g/dL 4.3 4.5 Calcium 8.5 - 10.2 mg/dL 10.1 10.1 Bilirubin, Total 0.2 - 1.3 mg/dL 0.6 0.6 Alkaline Phosphatase 34 - 123 U/L 59 53 AST 13 - 35 U/L 20 21 Glucose 74 - 99 mg/dL 169 (H) 165 (H) BUN 7 - 21 mg/dL 15 8 Creatinine 0.58 - 0.96 mg/dL 0.70 0.70 Sodium 136 - 144 mmol/L 139 140 Potassium 3.7 - 5.1 mmol/L 4.2 4.6 Chloride 97 - 105 mmol/L 101 102 CO2 22 - 30 mmol/L 26 26 Anion Gap 9 - 18 mmol/L 12 12 ALT 7 - 38 U/L 14 16 eGFR- >60 eGFR-All Other Races . >60 eGFR >=60 mL/min/1.73m 87 Cholesterol, Total <200 mg/dL 160 148 Triglyceride <150 mg/dL 96 72 HDL Cholesterol >39 mg/dL 60 70 LDL Cholesterol <100 mg/dL 81 64 Non HDL Cholesterol <130 mg/dL 100 78 Fasting Time hrs 12 12 VLDL Cholesterol <30 mg/dL 19 14 TC:HDL Ratio <5.10 2.67 2.11 LDL:HDL Ratio <2.54 1.35 0.91 Creatinine, Ur Random (UCRR) 20 - 300 mg/dL 97.6 Albumin, Urine Random mg/L 30.2 Albumin/Creat Ratio <30 mg/g 31 (H) Hemoglobin A1C 4.3 - 5.6 % 7.5 (H) 7.7 (H) Estimated Average Glucose mg/dL 169 174 TSH 0.270 - 4.200 mIU/L 3.610 3.770 Free T4 0.9 - 1.7 ng/dL 1.2 Vitamin D 25 Hydroxy 31.0 - 80.0 ng/mL 42.6 documented in this encounter [facility] 11-27-2021 Note HNO ID: [id number] Author: Evita Jimenez APRN.RISK PROFESSIONAL Service: ? Author Type: Nurse Specialist Type: Progress Notes Filed: 11/27/2021 9:49 AM Note Text: SUBJECTIVE: SHINGRIX VACCINE(2 of 3) due on 06/06/2007 DILATED RETINAL EXAM due on 06/03/2019 FECAL OCCULT BLOOD due on 12/20/2019 DTAP,TDAP,TD(2 - Td or Tdap) due on 09/25/2020 DIABETIC FOOT EXAM due on 01/07/2021 ADVANCE DIRECTIVE DISCUSSION Never done HBA1C due on 07/24/2021 HPI Alexander Xiao is a 81 year old female. PMH significant for ACTIVE PROBLEM LIST Hypothyroidism Hypercholesteremia Dm (Diabetes Mellitus) (Hcc) Last seen by Jose Braun MD 07/2020. She notes she left at her last visit because she did not want to wear down. Left without being seen. Presents with her who helps with history of present illness. Notes memory is significantly decreased, can get lost. Reports able to complete ADLs and IADLs without difficulty. indicates he works 4 hours/day. Notes often forgets that he is working. Notes she exercises and feels well with this. Reports not needing help at home at this time. DIABETES MELLITUS: Does not check blood sugars at home. Feeling well with current medications. Taking consistently. Without report of excessive thirst or increased frequency of urination, chest pain or dyspnea , numbness, tingling or pain in extremities, new or unusual visual symptoms, low sugar/hypoglycemic reactions, weight loss/gain, lightheadedness/dizziness and bowel changes/loose stools. Patient's last HgA1C was Hemoglobin A1C (%) Date Value 01/24/2021 7.5 12/25/2019 6.8 Hemoglobin A1C (POCT) (%) Date Value 07/31/2020 6.7 ) She has an eye doctor, not sure who it is. States sees routinely. Does not see coffee host. Hyperlipidemia. Ms. Xiao reports doing well on current therapy Her most recent lipid panels are: Cholesterol, Total (mg/dL) Date Value 01/24/2021 160 12/02/2018 160 HDL Cholesterol (mg/dL) Date Value 01/24/2021 60 12/02/2018 79 LDL Cholesterol (mg/dL) Date Value 01/24/2021 81 12/02/2018 65 Triglyceride (mg/dL) Date Value 01/24/2021 96 12/02/2018 81 Last 3 Encounter BP Readings: Date: BP: 02/14/2021 142/82 01/08/2020 130/70 06/28/2019 114/68 Hypothyroidism. She isdoing well on her current dose of Synthroid. TSH (uU/mL) Date Value 01/24/2021 3.610 12/25/2019 0.941 ) Review of Systems Constitutional: Negative. Respiratory: Negative. Cardiovascular: Negative. Endocrine: Negative. Objective BP 138/80 Pulse 78 Resp 16 Wt 66.2 kg (146 lb) SpO2 98% BMI 22.20 kg/m? Physical Exam Vitals and nursing note reviewed. Constitutional: Appearance: Normal appearance. HENT: Head: Normocephalic and atraumatic. Eyes: Conjunctiva/sclera: Conjunctivae normal. Cardiovascular: Rate and Rhythm: Normal rate and regular rhythm. Pulses: Normal pulses. Heart sounds: Normal heart sounds. Pulmonary: Effort: Pulmonary effort is normal. Breath sounds: Normal breath sounds. Abdominal: General: Bowel sounds are normal. Palpations: Abdomen is soft. Musculoskeletal: Right lower leg: No edema. Left lower leg: No edema. Feet: Right foot: Protective Sensation: 10 sites tested. 10 sites sensed. Skin integrity: Dry skin present. Toenail Condition: Right toenails are abnormally thick. Fungal disease present. Left foot: Protective Sensation: 10 sites tested. 10 sites sensed. Skin integrity: Dry skin present. Toenail Condition: Left toenails are normal. Skin: General: Skin is warm and dry. Neurological: Mental Status: She is alert. Mental status is at baseline. Psychiatric: Attention and Perception: Attention normal. Mood and Affect: Mood is elated. Speech: Speech normal. Comments: frequent laughter ALLERGIES No Known Allergies Medication simvastatin (ZOCOR) 40 mg tablet, Take 1 tablet by mouth daily at bedtime. metFORMIN (GLUCOPHAGE) 500 mg tablet, Take 2 tablets by mouth twice daily and take 1 tablet daily at lunch levothyroxine (SYNTHROID) 88 mcg tablet, Take 1 pill daily except one day per week take 1.5 pills (total 7.5 pills per week) multivitamin tablet, Take 1 tablet by mouth once daily. PAST MEDICAL HISTORY Diagnosis Date - DM (diabetes mellitus) (HCC) - History of endometrial cancer 2000 with radiation treatment - Hypercholesteremia - Hypothyroidism - Serum calcium elevated 11/16/2016 Normal on 05/2017 labs Social History Tobacco Use - Smoking status: Never Smoker - Smokeless tobacco: Never Used Substance Use Topics - Alcohol use: Not on file - Drug use: Not on file Component Latest Ref Rng AND Units 07/31/2020 01/24/2021 Protein, Total 6.3 - 8.0 g/dL 6.8 Albumin 3.9 - 4.9 g/dL 4.3 Calcium 8.5 - 10.2 mg/dL 10.1 Bilirubin, Total 0.2 - 1.3 mg/dL 0.6 Alkaline Phosphatase 34 - 123 U/L 59 AST 13 - 35 U/L 20 Glucose 74 - 99 mg/dL 169 (H) BUN 7 - 21 mg/dL 15 C (more content not included)... [facility] 11-27-2021 History of Present illness Narrative SUBJECTIVE: SHINGRIX VACCINE(2 of 3) due on 06/06/2007 DILATED RETINAL EXAM due on 06/03/2019 FECAL OCCULT BLOOD due on 12/20/2019 DTAP,TDAP,TD(2 - Td or Tdap) due on 09/25/2020 DIABETIC FOOT EXAM due on 01/07/2021 ADVANCE DIRECTIVE DISCUSSION Never done HBA1C due on 07/24/2021 HPI Alexander Xiao is a 81 year old female. PMH significant for ACTIVE PROBLEM LIST Hypothyroidism Hypercholesteremia Dm (Diabetes Mellitus) (Hcc) Last seen by Jose Braun MD 07/2020. She notes she left at her last visit because she did not want to wear down. Left without being seen. Presents with her who helps with history of present illness. Notes memory is significantly decreased, can get lost. Reports able to complete ADLs and IADLs without difficulty. indicates he works 4 hours/day. Notes often forgets that he is working. Notes she exercises and feels well with this. Reports not needing help at home at this time. DIABETES MELLITUS: Does not check blood sugars at home. Feeling well with current medications. Taking consistently. Without report of excessive thirst or increased frequency of urination, chest pain or dyspnea , numbness, tingling or pain in extremities, new or unusual visual symptoms, low sugar/hypoglycemic reactions, weight loss/gain, lightheadedness/dizziness and bowel changes/loose stools. Patient's last HgA1C was Hemoglobin A1C (%) Date Value 01/24/2021 7.5 12/25/2019 6.8 Hemoglobin A1C (POCT) (%) Date Value 07/31/2020 6.7 ) She has an eye doctor, not sure who it is. States sees routinely. Does not see coffee host. Hyperlipidemia. Ms. Xiao reports doing well on current therapy Her most recent lipid panels are: Cholesterol, Total (mg/dL) Date Value 01/24/2021 160 12/02/2018 160 HDL Cholesterol (mg/dL) Date Value 01/24/2021 60 12/02/2018 79 LDL Cholesterol (mg/dL) Date Value 01/24/2021 81 12/02/2018 65 Triglyceride (mg/dL) Date Value 01/24/2021 96 12/02/2018 81 Last 3 Encounter BP Readings: Date: BP: 02/14/2021 142/82 01/08/2020 130/70 06/28/2019 114/68 Hypothyroidism. She isdoing well on her current dose of Synthroid. TSH (uU/mL) Date Value 01/24/2021 3.610 12/25/2019 0.941 ) Review of Systems Constitutional: Negative. Respiratory: Negative. Cardiovascular: Negative. Endocrine: Negative. Objective BP 138/80 Pulse 78 Resp 16 Wt 66.2 kg (146 lb) SpO2 98% BMI 22.20 kg/m Physical Exam Vitals and nursing note reviewed. Constitutional: Appearance: Normal appearance. HENT: Head: Normocephalic and atraumatic. Eyes: Conjunctiva/sclera: Conjunctivae normal. Cardiovascular: Rate and Rhythm: Normal rate and regular rhythm. Pulses: Normal pulses. Heart sounds: Normal heart sounds. Pulmonary: Effort: Pulmonary effort is normal. Breath sounds: Normal breath sounds. Abdominal: General: Bowel sounds are normal. Palpations: Abdomen is soft. Musculoskeletal: Right lower leg: No edema. Left lower leg: No edema. Feet: Right foot: Protective Sensation: 10 sites tested. 10 sites sensed. Skin integrity: Dry skin present. Toenail Condition: Right toenails are abnormally thick. Fungal disease present. Left foot: Protective Sensation: 10 sites tested. 10 sites sensed. Skin integrity: Dry skin present. Toenail Condition: Left toenails are normal. Skin: General: Skin is warm and dry. Neurological: Mental Status: She is alert. Mental status is at baseline. Psychiatric: Attention and Perception: Attention normal. Mood and Affect: Mood is elated. Speech: Speech normal. Comments: frequent laughter ALLERGIES No Known Allergies Medication simvastatin (ZOCOR) 40 mg tablet, Take 1 tablet by mouth daily at bedtime. metFORMIN (GLUCOPHAGE) 500 mg tablet, Take 2 tablets by mouth twice daily and take 1 tablet daily at lunch levothyroxine (SYNTHROID) 88 mcg tablet, Take 1 pill daily except one day per week take 1.5 pills (total 7.5 pills per week) multivitamin tablet, Take 1 tablet by mouth once daily. PAST MEDICAL HISTORY Diagnosis Date DM (diabetes mellitus) (HCC) History of endometrial cancer 2000 with radiation treatment Hypercholesteremia Hypothyroidism Serum calcium elevated 11/16/2016 Normal on 05/2017 labs Social History Tobacco Use Smoking status: Never Smoker Smokeless tobacco: Never Used Substance Use Topics Alcohol use: Not on file Drug use: Not on file Component Latest Ref Rng & Units 07/31/2020 01/24/2021 Protein, Total 6.3 - 8.0 g/dL 6.8 Albumin 3.9 - 4.9 g/dL 4.3 Calcium 8.5 - 10.2 mg/dL 10.1 Bilirubin, Total 0.2 - 1.3 mg/dL 0.6 Alkaline Phosphatase 34 - 123 U/L 59 AST 13 - 35 U/L 20 Glucose 74 - 99 mg/dL 169 (H) BUN 7 - 21 mg/dL 15 Creatinine 0.58 - 0.96 mg/dL 0.70 Sodium 136 - 144 mmol/L 139 Potassium 3.7 - 5.1 mmol/L 4.2 Chloride 97 - 105 mmol/L 101 CO2 22 - 30 mmol/L 26 Anion Gap 9 - 18 mmol/L 12 ALT 7 - 38 U/L 14 eGFR- >60 eGFR-All Other Races . >60 WBC 3.70 - 11.00 k/uL 4.62 RBC 3.90 - 5.20 m/uL 4.67 Hemoglobin 11.5 - 15.5 g/dL 14.0 Hematocrit 36.0 - 46.0 % 42.9 MCV 80.0 - 100.0 fL 91.9 MCH 26.0 - 34.0 pG 30.0 MCHC 30.5 - 36.0 g/dL 32.6 RDW-CV 11.5 - 15.0 % 13.2 Platelet Count 150 - 400 k/uL 213 MPV 9.0 - 12.7 fL 10.3 Absolute nRBC <0.01 k/uL <0.01 Cholesterol, Total <200 mg/dL 160 Triglyceride <150 mg/dL 96 HDL Cholesterol >39 mg/dL 60 LDL Cholesterol <100 mg/dL 81 Non HDL Cholesterol <130 mg/dL 100 Fasting Time hrs 12 VLDL Cholesterol <30 mg/dL 19 TC:HDL Ratio <5.10 2.67 LDL:HDL Ratio <2.54 1.35 Creatinine, Ur Random (UCRR) 20 - 300 mg/dL 97.6 Albumin, Urine Random mg/L 30.2 Albumin/Creat Ratio <30 mg/g 31 (H) Hemoglobin A1C 4.3 - 5.6 % 7.5 (H) Estimated Average Glucose mg/dL 169 Hemoglobin A1C (POCT) 4.2 - 5.6 % 6.7 (A) TSH 0.270 - 4.200 uU/mL 3.610 Free T4 0.9 - 1.7 ng/dL 1.2 Vitamin D 25 Hydroxy 31.0 - 80.0 ng/mL 42.6 ASSESSMENT/PLAN: 1. Acquired hypothyroidism - ICD9: 244.9, ICD10: E03.9 (primary diagnosis) - COMP METABOLIC PANEL - TSH BLD 2. Need for shingles vaccine - ICD9: V04.89, ICD10: Z23 3. Screening for diabetic retinopathy - ICD9: V80.2, ICD10: Z13.5 4. Screening for colon cancer - ICD9: V76.51, ICD10: Z12.11 - FECAL OCCULT BLOOD TEST 5. Encounter for immunization - ICD9: V03.89, ICD10: Z23 - P[employer] COVID-19 VACCINE, AGE 12+ YR ([place] [facility]) 6. Hypercholesteremia - ICD9: 272.0, ICD10: E78.00 7. Type 2 diabetes mellitus without complication, without long-term current use of insulin (HCC) - ICD9: 250.00, ICD10: E11.9 - COMP METABOLIC PANEL - LIPID PANEL BASIC - HGB A1C - CONSULT TO OPHTHALMOLOGY - CONSULT TO PODIATRY 8. Memory problem - ICD9: 780.93, ICD10: R41.3 - COMP METABOLIC PANEL - CBC + DIFF - TSH BLD - CONSULT TO GERIATRICS - VITAMIN B12 BLOOD 9. Fungal nail infection - ICD9: 110.1, ICD10: B35.1 - CONSULT TO PODIATRY Evita Jimenez APRN.CNS Medical Decision Making: Problems: Moderate: 2+ stable chronic illnesses Data: Unique test(s) ordered: 3+ Risk: Moderate: Drug management Medical Decision Making Level: 4 - Moderate documented in this encounter [facility] 11-27-2021 Instructions Evita Jimenez APRN.CNS - 11/27/2021 9:13 AM EDT Check to see if your insurance covers Tdap and shingles vaccine and what location to get the vaccine usually best covered at your local pharmacy where you get prescriptions filled documented in this encounter [facility] 11-03-2021 Note HNO ID: [id number] Author: Russ Lama MA Service: ? Author Type: Aviation Safety Technician Type: Progress Notes Filed: 11/05/2021 1:08 PM Note Text: POPULATION HEALTH NAVIGATION OUTREACH Action/FYI Dr. Braun, the following orders have elfego pended for you to review and file: Pended Orders ID Status Description Pended By When Reason [id number] Pended HGB A1C Russ Lama MA 11/03/21 1317 [id number] Pended SCHEDULE LAB TESTING Russ Lama MA 11/03/21 1317 Patient is on [facility] list for below gaps and needs appt to address : E11.9 - DM (diabetes mellitus) ([facility]) - [id number] Last Billed 01/08/2020 Appointment type needed: Annual Wellness Care Gaps to Address: Dilated Retinal Exam Due Colorectal Screening: FOBT due HGB A1C Outcomes: Called patient and got busy signal. Tried call back twice but still busy. Pt identified by name and : NO Outreach Outcome/Action Unable to reach patient: Phone number not valid / voicemail full Did you use a PCP flex slot to schedule this appointment? N/A Reason for Outreach HCC or suspected condition Payer: Payor: MEDICARE / Plan: MEDICARE A AND B / Product Type: Medicare / Care Gap Reviewed:: Annual Wellness visit Colorectal Cancer Screening Diabetic Eye Exam HBA1C Reminder: Reminder note to check Health Maintenance for items below Health Maintenance items due: SHINGRIX VACCINE(2 of 3) due on 06/06/2007 DILATED RETINAL EXAM due on 06/03/2019 FECAL OCCULT BLOOD due on 12/20/2019 DTAP,TDAP,TD(2 - Td or Tdap) due on 09/25/2020 COVID-19 VACCINE(3 - Booster for Pfizer series) due on 01/01/2021 DIABETIC FOOT EXAM due on 01/07/2021 ADVANCE DIRECTIVE DISCUSSION Never done HBA1C due on 07/24/2021 Message Sent to Practice: Yes Navigation Signature: Russ Lama MA November 03, 2021 1:11 PM [facility] 11-03-2021 Note Patient Outreach (TRISTA GALVEZ) LANGALEXANDER A ([id number]) 1940 F Date Time Provider Department 11/03/21 RUSS LAMA During your visit today, we recorded the following information about you: Russ Lama MA 11/05/2021 1:08 PM Signed POPULATION HEALTH NAVIGATION OUTREACH Action/FYI Dr. Braun, the following orders have elfego pended for you to review and file: Pended Orders ID Status Description Pended By When Reason [id number] Pended HGB A1C Russ Lama MA 11/03/21 1317 [id number] Pended SCHEDULE LAB TESTING Russ Lama MA 11/03/21 1317 Patient is on [facility] list for below gaps and needs appt to address : E11.9 - DM (diabetes mellitus) ([facility]) - [id number] Last Billed 01/08/2020 Appointment type needed: Annual Wellness Care Gaps to Address: Dilated Retinal Exam Due Colorectal Screening: FOBT due HGB A1C Outcomes: Called patient and got busy signal. Tried call back twice but still busy. Pt identified by name and : NO Outreach Outcome/Action Unable to reach patient: Phone number not valid / voicemail full Did you use a PCP flex slot to schedule this appointment? N/A Reason for Outreach HCC or suspected condition Payer: Payor: MEDICARE / Plan: MEDICARE A AND B / Product Type: Medicare / Care Gap Reviewed:: Annual Wellness visit Colorectal Cancer Screening Diabetic Eye Exam HBA1C Reminder: Reminder note to check Health Maintenance for items below Health Maintenance items due: SHINGRIX VACCINE(2 of 3) due on 06/06/2007 DILATED RETINAL EXAM due on 06/03/2019 FECAL OCCULT BLOOD due on 12/20/2019 DTAP,TDAP,TD(2 - Td or Tdap) due on 09/25/2020 COVID-19 VACCINE(3 - Booster for Pfizer series) due on 01/01/2021 DIABETIC FOOT EXAM due on 01/07/2021 ADVANCE DIRECTIVE DISCUSSION Never done HBA1C due on 07/24/2021 Message Sent to Practice: Yes Navigation Signature: Russ Lama MA November 03, 2021 1:11 PM Allergies As of Date: 11/03/2021 (No Known Allergies) Date Reviewed: 02/14/2021 Reviewed by: Christy Alfaro Ma - Fully Assessed Reason for Visit: Population Health Navigation Outreach [3910] Cmt: HCC Primary Visit Diagnosis:Type 2 diabetes mellitus without complication, without long-term current use of insulin (HCC) [E11.9] Order(s):HGB A1C [[id number]] Order #: [id number] FUTURE SCHEDULE LAB TESTING [[id number]] Order #: [id number] FUTURE Prescriptions as of 11/05/2021 - melatonin 3 mg capsules Take by mouth. - simvastatin (ZOCOR) 40 mg tablet Take 1 tablet by mouth daily at bedtime. - metFORMIN (GLUCOPHAGE) 500 mg tablet Take 2 tablets by mouth twice daily and take 1 tablet daily at lunch - levothyroxine (SYNTHROID) 88 mcg tablet Take 1 pill daily except one day per week take 1.5 pills (total 7.5 pills per week) - acetaminophen (TYLENOL) 325 mg tablet Take 2 tablets by mouth every 6 hours as needed. - diphenhydrAMINE (BENADRYL) 25 mg capsule Take 1 capsule by mouth at bedtime as needed. - cranberry conc-ascorbic acid 4,200-20 mg cap Take by mouth. - ibuprofen (ADVIL) 200 mg tablet Take 200 mg by mouth every 6 hours as needed. - multivitamin tablet Take 1 tablet by mouth once daily. - UBIDECARENONE/VITAMIN E MIXED (COQ10 SG 100 ORAL) Take by mouth. Problem List As Of Date 11/03/2021 Noted Resolved Hypothyroidism [E03.9] Hypercholesteremia [E78.00] DM (diabetes mellitus) (HCC) [E11.9] Serum calcium elevated [E83.52] 11/16/2016 12/10/2017 Encounter Status:Closed by RUSS LAMA on 11/05/21 [facility] 11-03-2021 History of Present illness Narrative POPULATION HEALTH NAVIGATION OUTREACH Action/CHERYL Braun, the following orders have elfego pended for you to review and file: Pended Orders ID Status Description Pended By When Reason [id number] Pended HGB A1C Russ Lama MA 11/03/21 1317 [id number] Pended SCHEDULE LAB TESTING Russ Lama MA 11/03/21 1317 Patient is on [facility] list for below gaps and needs appt to address : E11.9 - DM (diabetes mellitus) (HCC) - [id number] Last Billed 01/08/2020
Appointment type needed: Annual Wellness Care Gaps to Address: Dilated Retinal Exam Due Colorectal Screening: FOBT due HGB A1C Outcomes: Called patient and got busy signal. Tried call back twice but still busy. Pt identified by name and : NO Outreach Outcome/Action Unable to reach patient: Phone number not valid / voicemail full Did you use a PCP flex slot to schedule this appointment? N/A Reason for Outreach HCC or suspected condition Payer: Payor: MEDICARE / Plan: MEDICARE A AND B / Product Type: Medicare / Care Gap Reviewed:: Annual Wellness visit Colorectal Cancer Screening Diabetic Eye Exam HBA1C Reminder: Reminder note to check Health Maintenance for items below Health Maintenance items due: SHINGRIX VACCINE(2 of 3) due on 06/06/2007 DILATED RETINAL EXAM due on 06/03/2019 FECAL OCCULT BLOOD due on 12/20/2019 DTAP,TDAP,TD(2 - Td or Tdap) due on 09/25/2020 COVID-19 VACCINE(3 - Booster for Pfizer series) due on 01/01/2021 DIABETIC FOOT EXAM due on 01/07/2021 ADVANCE DIRECTIVE DISCUSSION Never done HBA1C due on 07/24/2021 Message Sent to Practice: Yes Navigation Signature: Russ Lama MA November 03, 2021 1:11 PM documented in this encounter [facility] documented as of this encounter (statuses as of 11/05/2021) [facility]-10-2017 History of Past illness Narrative* Problem Noted Date Resolved Date Serum calcium elevated 11/16/2016 8 Overview: Normal on 05/2017 labs documented as of this encounter (statuses as of 11/27/2021) [facility]2017 History of Past illness Narrative* Problem Noted Date Resolved Date Serum calcium elevated 11/16/2016 8 Overview: Normal on 05/2017 labs documented as of this encounter (statuses as of 12/02/2021) [facility]2017 History of Past illness Narrative* Problem Noted Date Resolved Date Serum calcium elevated 11/16/2016 8 Overview: Normal on 05/2017 labs documented as of this encounter (statuses as of 12/04/2021) [facility]2017 History of Past illness Narrative* Problem Noted Date Resolved Date Serum calcium elevated 11/16/2016 8 Overview: Normal on 05/2017 labs documented as of this encounter (statuses as of 01/09/2022) [address]10-2017 History of Past illness Narrative* Problem Noted Date Resolved Date Serum calcium elevated 11/16/2016 8 Overview: Normal on 05/2017 labs documented as of this encounter (statuses as of 01/28/2022) [address]-2017 History of Past illness Narrative* Problem Noted Date Resolved Date Serum calcium elevated 11/16/2016 8 Overview: Normal on 05/2017 labs documented as of this encounter (statuses as of 01/29/2022) [address]-2017 History of Past illness Narrative* Problem Noted Date Resolved Date Serum calcium elevated 11/16/2016 8 Overview: Normal on 05/2017 labs documented as of this encounter (statuses as of 01/29/2022) [address]-2017 History of Past illness Narrative* Problem Noted Date Resolved Date Serum calcium elevated 11/16/2016 8 Overview: Normal on 05/2017 labs documented as of this encounter (statuses as of 02/27/2022) [facility] Type 2 diabetes mellitus without complication, without long-term current use of insulin (HCC)- Primary [facility] Diagnosis Acquired hypothyroidism- Primary Unspecified hypothyroidism Need for shingles vaccine Need for prophylactic vaccination and inoculation against other viral diseases Screening for diabetic retinopathy Screening for other eye conditions Screening for colon cancer Special screening for malignant neoplasms, colon Encounter for immunization Need for other specified prophylactic vaccination against single bacterial disease Hypercholesteremia Pure hypercholesterolemia Type 2 diabetes mellitus without complication, without long-term current use of insulin (HCC) Memory problem Memory loss Fungal nail infection Dermatophytosis of nail [facility] Diagnosis Rash- Primary Rash and other nonspecific skin eruption Skin lesion Unspecified disorder of skin and subcutaneous tissue documented in this encounter [facility] note* Diagnosis Close exposure to COVID-19 virus- Primary documented in this encounter [facility] note* Diagnosis COVID-19 virus infection- Primary [facility] Diagnosis COVID-19 virus infection- Primary Screening for diabetic retinopathy Screening for other eye conditions Encounter for immunization Need for other specified prophylactic vaccination against single bacterial disease Type 2 diabetes mellitus without complication, without long-term current use of insulin ([facility]) Hypercholesteremia Pure hypercholesterolemia Acquired hypothyroidism Unspecified hypothyroidism Syncope, unspecified syncope type Diarrhea, unspecified type Memory problem Memory loss documented in this encounter [facility] Advance Directives No Advanced Directives Records FoundDocuments on File Type Date Recorded 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 Advance Directive(s) 11/28/2014 4:19 PM Documents on File Type Date Recorded 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 Advance Directive(s) 11/28/2014 4:19 PM Reason for Referral Specialty Diagnoses / Procedures Referred By Lopez bruner Referred To Contact Podiatry Diagnoses Type 2 diabetes mellitus without complication, without long-term current use of insulin (HCC) Fungal nail infection Procedures CONSULT TO PODIATRY OFFICE/OUTPATIENT [facility] 60-74 MINUTES Evita Jimenez, SYSTEMS INTEGRATION MANAGER.RISK PROFESSIONAL [address] [place] [address] Referral ID Status Reason Start Date Expiration Date Visits Requested Visits Authorized [id number] Authorized PCP Requested Referral 11/27/2021 11/27/2022 1 1 Specialty Diagnoses / Procedures Referred By Lopez bruner Referred To Contact Ophthalmology Diagnoses Type 2 diabetes mellitus without complication, without long-term current use of insulin ([facility]) Procedures CONSULT TO OPHTHALMOLOGY OFFICE/OUTPATIENT [facility] MDM 60-74 MINUTES Evita Jimenez, SYSTEMS INTEGRATION MANAGER.RISK PROFESSIONAL [address] [place] [address] Referral ID Status Reason Start Date Expiration Date Visits Requested Visits Authorized [id number] Authorized PCP Requested Referral 11/27/2021 11/27/2022 1 1 Specialty Diagnoses / Procedures Referred By Contac t Referred To Contact Gerontology Diagnoses Memory problem Procedures CONSULT TO GERIATRICS OFFICE/OUTPATIENT [facility] 60-74 MINUTES JimenezEvita, SYSTEMS INTEGRATION MANAGER.RISK PROFESSIONAL [address] [place] [address] Referral ID Status Reason Start Date Expiration Date Visits Requested Visits Authorized [id number] Authorized PCP Requested Referral 11/27/2021 11/27/2022 1 1 Specialty Diagnoses / Procedures Referred By Contac t Referred To Contact Ophthalmology Diagnoses Screening for diabetic retinopathy Procedures CONSULT TO OPHTHALMOLOGY OFFICE/OUTPATIENT [facility] 60-74 MINUTES Evita Jimenez, SYSTEMS INTEGRATION MANAGER.RISK PROFESSIONAL [address] [place] [address] Referral ID Status Reason Start Date Expiration Date Visits Requested Visits Authorized [id number] Authorized PCP Requested Referral 02/27/2023 1 1 Health Concerns Infection Onset Date Last Indicated Resolved Time COVID-19 Rule-Out 01/28/2022 01/28/2022 Infection Onset Date Last Indicated Resolved Time COVID-19 Rule-Out 01/28/2022 01/28/2022 01/29/2022 5:56 AM EDT COVID-19 Confirmed 01/28/2022 01/28/2022 Infection Onset Date Last Indicated Resolved Time COVID-19 Confirmed 01/28/2022 01/28/2022 Summary Purpose Family History No Family History Records Found Additional Source Comments Source Comments (unrecognize d section and content) In the event this informatio n is protected by the Federal Confidentiality of Alcohol and Drug Abuse Patient Records regulations: The Federal rules restrict any use of the information to criminally investigate or prosecute any alcohol or drug abuse patient.[facility] the event this information is protected by the Federal Confidentiality of Alcohol and Drug Abuse Patient Records regulations: The Federal rules restrict any use of the information to criminally investigate or prosecute any alcohol or drug abuse patient.[facility] the event this information is protected by the Federal Confidentiality of Alcohol and Drug Abuse Patient Records regulations: The Federal rules restrict any use of the information to criminally investigate or prosecute any alcohol or drug abuse patient.[facility] the event this information is protected by the Federal Confidentiality of Alcohol and Drug Abuse Patient Records regulations: The Federal rules restrict any use of the information to criminally investigate or prosecute any alcohol or drug abuse patient.[facility] the event this information is protected by the Federal Confidentiality of Alcohol and Drug Abuse Patient Records regulations: The Federal rules restrict any use of the information to criminally investigate or prosecute any alcohol or drug abuse patient.[facility] the event this information is protected by the Federal Confidentiality of Alcohol and Drug Abuse Patient Records regulations: The Federal rules restrict any use of the information to criminally investigate or prosecute any alcohol or drug abuse patient.[facility] the event this information is protected by the Federal Confidentiality of Alcohol and Drug Abuse Patient Records regulations: The Federal rules restrict any use of the information to criminally investigate or prosecute any alcohol or drug abuse patient.[facility] the event this information is protected by the Federal Confidentiality of Alcohol and Drug Abuse Patient Records regulations: The Federal rules restrict any use of the information to criminally investigate or prosecute any alcohol or drug abuse patient.[facility] the event this information is protected by the Federal Confidentiality of Alcohol and Drug Abuse Patient Records regulations: The Federal rules restrict any use of the information to criminally investigate or prosecute any alcohol or drug abuse patient.[facility] Reason for Visit (unrecogniz ed section and content) Reason Comments Physical Reason Comments Results, Lab Reason Comments Mass (LT) hand lump, x1 m th, denied pain, rash upper arm. Reason Comments Covid19 Concern Asymptomatic, possib le exposure x1 week Reason Comments Results COVID+ Reason Comments Covid Follow Up No Reason Comments Hospital F/U Care Teams (unrecognized sec tion and content) Hydraulic Mechanic Relationship Specialty Start Date End Date Jose Braun MD [address] [facility] [place] [id number] PCP - General Internal Medicine 10/30/15 Hydraulic Mechanic Relationship Specialty Start Date End Date Jose Braun MD [address] [facility] [place] [id number] PCP - General Internal Medicine 10/30/15 Hydraulic Mechanic Relationship Specialty Start Date End Date Jose Braun MD [address] [facility] [place] [address] PCP - General Internal Medicine 10/30/15 Hydraulic Mechanic Relationship Specialty Start Date End Date Evita Jimenez, SYSTEMS INTEGRATION MANAGER.RISK PROFESSIONAL [address] [facility] [place] [address] PCP - General Internal Medicine 01/09/22 Hydraulic Mechanic Relationship Specialty Start Date End Date Evita Jimenez, SYSTEMS INTEGRATION MANAGER.RISK PROFESSIONAL [address] [facility] [place] [address] PCP - General Internal Medicine 01/09/22 Hydraulic Mechanic Relationship Specialty Start Date End Date Jose Braun MD [address] [facility] [place] [address] PCP - General Internal Medicine 01/29/22 Hydraulic Mechanic Relationship Specialty Start Date End Date Jose Braun MD [address] [place] [address] PCP - General Internal Medicine 01/29/22 INFORMATION SOURCE (unrecogn ized section and content) FOR RECORDS PERTAINING TO PATIENTS WHO ARE OR HAVE BEEN ENROLLED IN A CHEMICAL DEPENDENCY/SUBSTANCEABUSE PROGRAM, SOME INFORMATION MAY BE OMITTED. This clinical summary was aggregated from multiple sources. Caution should be exercised in using it in the provision of clinical care. This summary normalizes information from multiple sources, and as a consequence, information in this document may materially change the coding, format and clinical context of patient data. In addition, data may be omitted in some cases. CLINICAL DECISIONS SHOULD BE BASED ON THE PRIMARY CLINICAL RECORDS. [employer] [facility]. provides no warranty or guarantee of the accuracy or completeness of information in this document.
--- NOTE | 2023-06-19 16:20 | CT_ITS ---
EXAMINATION : Head CT w/out contrast HISTORY : confusion COMPARISON : None. TECHNIQUE : Multiple contiguous axial images were obtained from the skull base to the vertex without intravenous contrast. A radiation dose optimization technique was used for this scan. FINDINGS : There is no evidence for acute intracranial hemorrhage, mass effect, or midline shift. There is no extra-axial fluid collection. There are periventricular white matter changes consistent with chronic microvascular ischemic disease. There is sulcal widening and ventricular enlargement consistent with cerebral atrophy. There is normal felder-white differentiation, without CT evidence of acute ischemia or infarct. The skull base and calvarium are unremarkable. The orbits are unremarkable. The paranasal sinuses are clear. The mastoid air cells are well-aerated. The soft tissues are unremarkable. CT/Brain/Head without Contrast IMPRESSION: No acute intracranial abnormality. Chronic involutional and ischemic changes of the brain. Electronically Signed: Agustín Warren MD at 17:58 EST ,
--- NOTE | 2023-06-19 16:38 | EDS_ITS ---
HPI History of Present Illness Chief Complaint: Confusion Narrative Narrative: 82-year-old female with confusion. states this is a long-term thing and she was seen by nurse practitioner 2 years ago and sent in to [place] to see a specialist and dementia. Patient did not want to go do this and her did not force her. It sounds like she has had steady decline of confusion since then. Patient has not seen her primary care physician since then. Patient's gives the history as patient is very confused. Patient's states that she is very confused since about 11 AM this morning when she was startled while sleeping in a chair and she has not really made sense today. He states he has had the chills or at least he seems to be shaky. If you asked the patient she will say yes. Patient has not had any trauma to the head. She has not had a fever at home. She has not had vomiting, diarrhea. No dysuria or hematuria per . Patient has not been taking her medications at home and she normally would manage these medications on her own. [facility] Medical History COVID COVID-19 Diabetes Hypothyroidism Syncope Home Medications levothyroxine 88 mcg tablet 88 mcg PO DAILY thyroid 06/25/18 [History Last Taken Unknown] metformin 1,000 mg tablet 1,000 mg PO BIDCM diabetes 06/25/18 [History Last Taken Unknown] simvastatin 40 mg tablet 40 mg PO QHS cholesterol 06/25/18 [History Last Taken Unknown] Allergy/AdvReac Type Severity Reaction Status Date / Time No Known Allergies Allergy Verified 06/19/23 15:55 Surgical History History of hysterectomy Social History Smoking Status: Never smoker ROS ROS ED Review of Systems ROS Unobtainable: due to mental condition and due to mental status EXAM Physical Exam Const Vital Signs: 06/19/23 15:55 06/19/23 17:00 06/19/23 18:43 Temperature 98.9 F 98.2 F Temperature Source Temporal Pulse Rate 81 94 65 Respiratory Rate 16 20 H 16 Blood Pressure 147/85 H 141/74 H 153/68 H Blood Pressure Mean 105 96 96 Pulse Ox 99 94 98 Oxygen Delivery Method Room Air Room Air Positive well nourished General Appearance ED: NAD; Negative for pallor HEENT Reports moist mucous membranes Eyes PERRL and EOMs intact bilaterally General Eye ED: Yes pale conjunctiva Chest Wall inspection of chest normal Resp normal respiratory effort and clear to auscultation bilaterally Auscultation: Negative for rales, rhonchi or wheezes Cardio regular rate and regular rhythm GI normal to inspection, nondistended, normoactive bowel sounds Extremity General Extremety ED: Negative for edema or tenderness General Extremity: Negative for edema Neuro CN's II-XII intact bilaterally and no sensory deficits noted Sensorium / Orientation: alert Motor Exam: strength 5/5 throughout Psych Psych Narrative: Confused Skin General Skin Exam: Negative for jaundice or pallor MDM MDM MDM Narrative Medical decision making narrative: 82-year-old female presenting with for confusion. This appears to be a long-term issue but is acutely changed at 11 AM today. Differential includes stroke, intracranial hemorrhage, dehydration, anemia, dehydration, electrolyte abnormalities, ACS, COVID, influenza, RSV, UTI, dementia. CBC obtained to assess white blood cell count, hemoglobin, platelets. This is within normal limits with exception of a hemoglobin of 15.4. BMP shows normal renal function, electrolytes are normal with exception of a sodium 134. Glucose 415 without anion gap. High-sensitivity troponin is 9. EKG on my interpretation shows a normal sinus rhythm with a rate of 78 bpm without sign ischemic change or ectopy. Chest x-ray my interpretation shows no acute process. Radiology interprets and agrees. Urinalysis negative for infection. After discussion with the he does not feel he can take care of her at home because she is so confused. Her CT brain was negative. It was at this point the patient's stated that she might of had some trouble speaking earlier although this was not mentioned prior to talking about admission. Patient is awake and alert but very confused to place, time, situation. was amenable to this as he is concerned for possible stroke. Patient does not have any focal neurologic deficits or lateralizing signs or symptoms on examination. I discussed her with him the hospitalist for admission. Impression: 1. Altered mental status 2. Hyperglycemia Lab Data Attestation: I reviewed the patient's lab results. Labs: Laboratory Results - last 24 hr 06/19/23 06/19/23 06/19/23 16:30 16:33 16:49 WBC 6.9 RBC 5.21 Hgb 15.4 H Hct 45.7 MCV 87.7 MCH 29.6 MCHC 33.7 RDW Std Deviation 41.6 RDW Coeff of Saadia 12.9 Plt Count 205 MPV 9.4 Immature Gran % (Auto) 0.400 Neut % (Auto) 66.0 Lymph % (Auto) 24.3 [place] % (Auto) 7.0 Eos % (Auto) 1.3 Baso % (Auto) 1.0 Absolute Neuts (auto) 4.5 Absolute Lymphs (auto) 1.67 Nucleated RBC % 0 Sodium 134 L Potassium 3.9 Chloride 101 Carbon Dioxide 27.0 Anion Gap 6 BUN 12 Creatinine 1.01 Estim Creat Clear Calc 43.32 Est GFR (MDRD) Af Amer 67 Est GFR (MDRD) Non-Af 56 L BUN/Creatinine Ratio 11.9 Glucose 415 H Calcium 9.6 Troponin I High Sens 9 Urine Color Yellow Urine Clarity Clear Urine pH 6.0 Ur Specific Burden 1.015 Urine Protein Negative Urine Glucose (UA) 1000 H Urine Ketones 5 H Urine Occult Blood Negative Urine Nitrite Negative Urine Bilirubin Negative Urine Urobilinogen Normal Ur Leukocyte Esterase Negative Urine RBC 0 SEEN Urine WBC 0 SEEN Ur Squamous Epith Cells 0-5 SEEN Urine Bacteria 0 SEEN Urine Mucus 0 SEEN POC Glucose 373 H Radiography Diagnostic Testing: Clinical Impression(s) from Imaging Studies Brain CT 06/19/23 16:20 IMPRESSION: No acute intracranial abnormality. Chronic involutional and ischemic changes of the brain. Electronically Signed: Agustín Warren MD at 17:58 EST , Chest X-Ray 06/19/23 17:15 IMPRESSION: No acute radiographic abnormalities. Electronically Signed: Agustín Warren MD at 18:00 EST , Discharge Plan Triage Chief Complaint: Confusion ED Provider: Artur Gallardo Dx/Rx/DC Orders Prescriptions: No Action simvastatin 40 MG tablet 40 mg PO QHS levothyroxine 88 MCG tablet 88 mcg PO DAILY metformin 1,000 MG tablet 1,000 mg PO BIDCM Primary Care Provider: Evita Jimenez NP Referrals: Evita Jimenez NP, PROSTHETICS TECHNICIAN-C [Primary Care Provider] -
[2023-06-19 16:39] LABS: Absolute Lymphocyte Count 1.67 X10^3/uL (0.83-4.51); Absolute Neutrophil Count 4.5 X10^3/uL (2.0-7.7); Basophil# 0.07 X10^3/uL; Eosinophil# 0.09 X10^3/uL; Eosinophils% 1.3 % (0-5); Hematocrit 45.7 % (37-47); Hemoglobin 15.4 g/dL (12.0-15.0); Lymphocyte # 1.67 X10^3/ul (0.83-4.51); Lymphocyte % 24.3 % (19-41); Mean Corp Hgb Conc 33.7 g/dL (32-36); Mean Corpuscular Hgb 29.6 pg (27.0-32.0); Mean Corpuscular Volume 87.7 fL (81-99); Mean Platelet Vol. 9.4 fl (6.2-12.0); Monocyte# 0.48 X10^3/uL; NRBC Flagged by Analyzer 0 % (0-5); Neutrophil # 4.53 X10^3/uL (2.7-7.7); Platelet Count 205 K/mm3 (150-450); RBC Distribution Width CV 12.9 % (11.6-14.6); RBC Distribution Width SD 41.6 fl (35.1-43.9); Red Blood Count 5.21 M/mm3 (4.2-5.4); White Blood Count 6.9 K/mm3 (4.4-11.0)
[2023-06-19 16:51] LABS: Bedside Glucose 373 mg/dL (74-106)
[2023-06-19 16:58] LABS: Anion Gap 6 (5-15); BUN 12 mg/dL (7-18); BUN/Creat Ratio 11.9 RATIO (10-20); Calcium,Total 9.6 mg/dL (8.5-10.1); Chloride 101 mmol/L (98-107); Creatinine, Serum 1.01 mg/dL (0.55-1.02); EST Glomerular Filtration Rate 56 mL/min (>60); Est Glom Filt Rate - Afr Amer 67 mL/min (>60); Estimated Creatinine Clearance 43.32 ml/min; Glucose 415 mg/dL (74-106); Potassium 3.9 mmol/L (3.5-5.1); Sodium Level 134 mmol/L (136-145); Troponin-I HS 9 pg/mL (3.0-54.0)
[2023-06-19 17:00] VITALS: BP 141/74; PULSE 94; RESP 20; O2SAT 94
[2023-06-19 17:03] LABS: Bacteria 0 SEEN /hpf (None Seen); Mucous, Urine 0 SEEN /hpf (<or=2+); Red Blood Cells-Urine 0 SEEN /hpf (0-5); White Blood Cells 0 SEEN /hpf (0-5)
--- NOTE | 2023-06-19 17:15 | RAD_ITS ---
INDICATION: altered mental status EXAMINATION/TECHNIQUE: X-RAY - XR Chest 1 View COMPARISON: None. FINDINGS: Chronic lung changes. No definite acute lung findings. Tortuous and calcified thoracic aorta. The heart is not enlarged. No pleural effusion or pneumothorax. Degenerative changes of the thoracic spine. RAD/Chest 1 View (Portable) IMPRESSION: No acute radiographic abnormalities. Electronically Signed: Agustín Warren MD at 18:00 [facility] ,
[2023-06-19 17:24] LABS: Color, Urine Yellow (Yellow); Glucose, Dipstick 1000 mg/dl (Normal); Ketone-Dipstick 5 mg/dl (Negative); Leukocyte Esterase-Dipstick Negative /ul (Negative); Nitrite-Dipstick Negative (Negative); Occult Blood-Urine Negative /ul (Negative); Protein-Dipstick Negative (Negative); Specific Gravity, Urine 1.015 (1.002-1.030); Urine Bilirubin Dipstick Negative (Negative); Urine Clarity Clear (Clear); Urine Urobilinogen Normal (Normal)
[2023-06-19 18:15] LABS: Squamous Epithelial Cells - UA 0-5 SEEN /hpf (5-10)
[2023-06-19 18:43] VITALS: BP 153/68; PULSE 65; RESP 16; TEMP 36.8; O2SAT 98
--- OUTSIDE RECORDS SUMMARY | 2023-06-19 19:01 | XMS RPT_ITS | CCD ---
Author Name Unknown Address [address] [place] [address] Organization [facility] Care Team Providers Care Retort Pre Cooker Name Role Phone Jose Braun MD Primary Care Provider Tony OVERTON.Evita RUELAS Primary Care Provider [phone] Jose Braun MD Primary Care Provider JOSE BRAUN Primary Care Unavailable JOSE BRAUN Primary Care Unavailable EVITA JIMENEZ Referring Unavailable JOSE BRAUN Primary Care Unavailable EVITA JIMENEZ Attending Unavailable JOSE BRAUN Primary Care Unavailable EVITA JIMENEZ Attending Unavailable JOSE BRAUN Primary Care Unavailable EVITA JIMENEZ Attending Unavailable EVITA JIMENEZ Primary Care Unavailable EVITA JIMENEZ Primary Care Unavailable Jose Braun MD Primary Care Provider Medications Current Medications Medication Drug Class(es) Dates Sig (Normalized) Sig (Original) acetaminophen 325 mg oral tablet (2 sources) Start: 10-30-2015 End: 11-27-2021 take 2 tablets by mouth every six hours as needed acetaminophen (TYLENOL) 325 mg tablet Take 2 tablets by mouth every 6 hours as needed. 0 10/30/2015 11/27/2021 Discontinued Completed/Discontinued Medications Medication Drug Class(es) Dates Sig (Normalized) Sig (Original) levothyroxine sodium 0.088 mg oral tablet (12 sources) l-Thyroxine Start: 02-27-2022 levothyroxine (SYNTHROID) 88 mcg tablet Take 1 pill daily except one day per week take 1.5 pills (total 7.5 pills per week) 100 tablet 3 02/27/2022 Active Problems Active Problems Problem Classification Problem Date Documented Da te Episodic/Chronic Diabetes mellitus without complication (14 sources) Type 2 diabetes mellitus without complication; Translations: [Type 2 diabetes mellitus without complications] Onset: 10-30-2015 Chronic Disorders of lipid metabolism (12 sources) Hypercholesterolemi a; Translations: [Pure hypercholesterolemi a, [...] sources) Memory impairment; Translations: [Other amnesia] Episodic Spondylosis; intervertebral disc disorders; other back problems (1 source) Neck pain; Translations: [Cervicalgia] 06-19-2023 Episodic Syncope (1 source) Syncope; Translations: [Syncope and collapse] Episodic Thyroid disorders (13 sources) Hypothyroidism; Translations: [Hypothyroidism, unspecified] Onset: 10-30-2015 [...] Vital Sign Value Performing Clinician Jaylan payne 06-19-2023 12:59-0500 Body temperature 97.11 [degF] Devin Carrasquillo MD Work Phone: [facility] 06-19-2023 12:59-0500 Body weight 69.58 kg Devin Carrasquillo MD Work Phone: [facility] 06-19-2023 12:59-0500 Diastolic blood pressure 88 mm[Hg] Devin Carrasquillo MD Work Phone: [facility] 06-19-2023 12:59-0500 Heart rate 90 /min Devin Carrasquillo MD Work Phone: [facility] 06-19-2023 12:59-0500 Respiratory rate 21 /min Devin Carrasquillo MD Work Phone: [facility] 06-19-2023 12:59-0500 SaO2% (BldA) [Mass fraction] 99 % Devin Carrasquillo MD Work Phone: [facility] 06-19-2023 12:59-0500 Systolic blood pressure 130 mm[Hg] Devin Carrasquillo MD Work Phone: [facility] 02-27-2022 08:17-0400 Body weight 63.5 kg Evita Jimenez CUSTOMER ACCOUNT EXECUTIVE.LABORER DEMOLITION Work Phone: [facility] 02-27-2022 08:17-0400 Diastolic blood pressure 80 mm[Hg] Evita Jimenez CUSTOMER ACCOUNT EXECUTIVE.LABORER DEMOLITION Work Phone: [facility] 02-27-2022 08:17-0400 Heart rate 83 /min Evita Jimenez CUSTOMER ACCOUNT EXECUTIVE.LABORER DEMOLITION Work Phone: [facility] 02-27-2022 08:17-0400 Respiratory rate 16 /min Evita Jimenez CUSTOMER ACCOUNT EXECUTIVE.LABORER DEMOLITION Work Phone: [facility] 02-27-2022 08:17-0400 SaO2% (BldA) [Mass fraction] 98 % Evita Jimenez CUSTOMER ACCOUNT EXECUTIVE.LABORER DEMOLITION Work Phone: [facility] 02-27-2022 08:17-0400 Systolic blood pressure 122 mm[Hg] Evita Jimenez CUSTOMER ACCOUNT EXECUTIVE.LABORER DEMOLITION Work Phone: [facility] 01-28-2022 16:11-0400 Body temperature 99.39 [degF] Jackie Nunes CUSTOMER ACCOUNT EXECUTIVE.PLATE SHOP HELPER Work Phone: [facility] 01-28-2022 16:11-0400 Body weight 65.05 kg Jackie Praisler-Wood CUSTOMER ACCOUNT EXECUTIVE.PLATE SHOP HELPER Work Phone: [facility] 01-28-2022 16:11-0400 Diastolic blood pressure 82 mm[Hg] Jackie Praisler-Wood CUSTOMER ACCOUNT EXECUTIVE.PLATE SHOP HELPER Work Phone: [facility] 01-28-2022 16:11-0400 Heart rate 86 /min Jackie Praisler-Wood CUSTOMER ACCOUNT EXECUTIVE.PLATE SHOP HELPER Work Phone: [facility] 01-28-2022 16:11-0400 Respiratory rate 18 /min Jackie Praisler-Wood CUSTOMER ACCOUNT EXECUTIVE.PLATE SHOP HELPER Work Phone: [facility] 01-28-2022 16:11-0400 SaO2% (BldA) [Mass fraction] 95 % Jackie Praisler-Wood CUSTOMER ACCOUNT EXECUTIVE.PLATE SHOP HELPER Work Phone: [facility] 01-28-2022 16:11-0400 Systolic blood pressure 120 mm[Hg] Jackie Praisler-Wood CUSTOMER ACCOUNT EXECUTIVE.PLATE SHOP HELPER Work Phone: [facility] 01-09-2022 10:08-0400 Body temperature 97.81 [degF] Rena Demetrius CUSTOMER ACCOUNT EXECUTIVE.PLATE SHOP HELPER Work Phone: [facility] 01-09-2022 10:08-0400 Body weight 66.41 kg Rena Demetrius CUSTOMER ACCOUNT EXECUTIVE.PLATE SHOP HELPER Work Phone: [facility] 01-09-2022 10:08-0400 Diastolic blood pressure 78 mm[Hg] Rena Demetrius CUSTOMER ACCOUNT EXECUTIVE.PLATE SHOP HELPER Work Phone: [facility] 01-09-2022 10:08-0400 Heart rate 110 /min Rena Demetrius CUSTOMER ACCOUNT EXECUTIVE.PLATE SHOP HELPER Work Phone: [facility] 01-09-2022 10:08-0400 Respiratory rate 16 /min Rena Demetrius CUSTOMER ACCOUNT EXECUTIVE.PLATE SHOP HELPER Work Phone: [facility] 01-09-2022 10:08-0400 SaO2% (BldA) [Mass fraction] 98 % Rena Demetrius CUSTOMER ACCOUNT EXECUTIVE.PLATE SHOP HELPER Work Phone: [facility] 01-09-2022 10:08-0400 Systolic blood pressure 132 mm[Hg] Rena Demetrius CUSTOMER ACCOUNT EXECUTIVE.PLATE SHOP HELPER Work Phone: [facility] 11-27-2021 09:06-0400 Body weight 66.22 kg Evita Jimenez CUSTOMER ACCOUNT EXECUTIVE.LABORER DEMOLITION Work Phone: [facility] 11-27-2021 09:06-0400 Diastolic blood pressure 80 mm[Hg] Evita Jimenez CUSTOMER ACCOUNT EXECUTIVE.LABORER DEMOLITION Work Phone: [facility] 11-27-2021 09:06-0400 Heart rate 78 /min Evita Jimenez CUSTOMER ACCOUNT EXECUTIVE.LABORER DEMOLITION Work Phone: [facility] 11-27-2021 09:06-0400 Respiratory rate 16 /min Evita Jimenez CUSTOMER ACCOUNT EXECUTIVE.LABORER DEMOLITION Work Phone: [facility] 11-27-2021 09:06-0400 SaO2% (BldA) [Mass fraction] 98 % Evita Jimenez CUSTOMER ACCOUNT EXECUTIVE.LABORER DEMOLITION Work Phone: [facility] 11-27-2021 09:06-0400 Systolic blood pressure 138 mm[Hg] Evita Jimenez CUSTOMER ACCOUNT EXECUTIVE.LABORER DEMOLITION Work Phone: [facility] Encounters Encounter Date Encounter Type Care Provider Facility Start: 06-19-2023 End: 06-19-2023 Patient encounter procedure Devin Carrasquillo MD Work Phone: [facility] Plan of Treatment Date Care Activity Detail Author Start: 05-10-2023 Advance Directive Discussion Advance Directive Discussion [facility] Start: 05-10-2023 Depression Assessment Depression Ass essment [facility] Start: 02-27-2023 3 comp foot exam completed DIABETIC FOOT EXAM [facility] Start: 02-27-2023 Diabetic foot examination Diabetic Foot Exam [facility] Start: 01-08-2023 Covid-19 Vaccine () Covid-19 Vaccine () [facility] Start: 12-01-2022 FECAL OCCULT BLOOD FECAL OCCULT BLOO D [facility] Start: 11-27-2022 3 comp foot exam completed DIABETIC FOOT EXAM [facility] Start: 11-27-2022 Hepatitis B surface antibody level LDL CHOLESTEROL [facility] Start: 05-30-2022 Hemoglobin A1c measurement HbA1C [facility] Start: 05-30-2022 Hemoglobin A1c/Hemoglobin.total in Blood HBA1C [facility] Start: 05-11-2022 End: 02-05-2023 ALBUMIN/CREAT RATIO RND UR ALBUMIN/CREAT RATIO RND UR Lab Routine Type 2 diabetes mellitus without complication, without long-term current use of insulin (HCC) Expected: 05/11/2022 (Approximate), Expires: 02/05/2023 [facility] Work Phone: Immunizations Immunization Date Immunization Notes Care Provider Jayda reed 02-25-2022 influenza, high dose seasonal, preservative-free Evita Jimenez CUSTOMER ACCOUNT EXECUTIVE.LABORER DEMOLITION Work Phone: [facility] Work Phone: 06-28-2019 influenza, high dose seasonal, preservative-free Russ Lama MA [facility] 03-11-2018 influenza, high dose seasonal, preservative-free Russ Lama [facility] Work Phone: 12-10-2017 pneumococcal conjuga te vaccine, 13 valent Russ Lama MA [facility] 06-07-2017 influenza, high dose seasonal, preservative-free Russ Lama MA [facility] 05-12-2016 influenza, high dose seasonal, preservative-free Russ Lama MA [facility] 04-08-2011 pneumococcal polysaccharide vaccine, 23 valent Russ Lama MA [facility] 09-25-2010 tetanus toxoid, redu binta diphtheria toxoid, and acellular pertussis vaccine, adsorbed Russ Lama MA [facility] 04-11-2007 zoster vaccine, live Russ Lama [facility] NEGATED: Highlighted row has not occurred!11-27-2021 COVID-19 vaccine, age 12+ yr ([place] - [place]) Evita Jimenez CUSTOMER ACCOUNT EXECUTIVE.LABORER DEMOLITION Work Phone: [facility] Work Phone: Payers Date Payer Category Payer Medicare [id number] 2011 Private Health Insurance AET[employer] A ETNA MEDICARE SUPPLEMENT [id number] 2011-Present [phone] [address] [address] [place] [address] Indemnity [id number] 2011 Private Health Insurance [employer]ET[employer] A ETNA MEDICARE SUPPLEMENT [id number] 2011-Present [phone] [address] [address] [place] [address] Indemnity [id number] 2005 Medicare MEDICARE MEDICAR E A AND B [id number] 2005-Present [phone] [place] [address] Medicare [id number] 2005 Medicare MEDICARE MEDICAR E A AND B [id number] 2005-Present [phone] [place] [address] Medicare [id number] 2005 Medicare [id number] Social History Date Type Detail Facility Start: 10-30-2015 End: 01-09-2022 Tobacco smoking status [facility] Never smoked tobacco [facility] Start: 10-30-2015 End: 01-09-2022 Tobacco use and exposure Smokeless tobacco non-user [facility] Start: 02-14-2021 End: 06-19-2023 Alcohol intake Not Asked [facility] Start: 1940 Sex Assigned At Not on file [facility] Start: 11-17-2021 End: 02-27-2022 Exposure to SARS-CoV-2 (event) Not sure [facility] Work Phone: Start: 01-19-2022 End: 01-29-2022 Exposure to SARS-CoV-2 (event) Unable to assess [facility] Work Phone: Start: 06-01-2022 End: 06-19-2023 History of Social function [facility] Work Phone: Start: 06-01-2022 End: 06-19-2023 Tobacco use panel [facility] Work Phone: Adult Depression Screening Assessment 0 [facility] Work Phone: Clinical Notes 11-16-2016 to 06-19-2023 Devin Carrasquillo MD - 06/19/2023 1:13 PM ESTPatient InstructionsEvita Jimenez APRN.LABORER DEMOLITION - 02/27/2022 8:20 AM Lorenzo Jimenez APRN.LABORER DEMOLITION - 01/29/2022 1:40 PM EDTPatient InstructionsPatient Instructions Note Date & Type Note Facility 06-19-2023 History of Present illness Narrative Patient presents with: Pain: Neck pain, fell a few months ago still having pain HPI: Neck pain: Duration: fell 2 months ago on pavement (unwitnessed, no visible head injury, had abrasions on hand). Was crying today. Reports no pain currently. Location: usually rubs the right side Character: reports discomfort almost daily. Currently reports she has no pain. Radiation: has not reported Aggravating: maybe falling asleep upright in her chair Relieving: Pain relievers: none. Has not been taking her medication Associated: dementia Pertinent negatives: Denies weakness, vomiting MEDICATIONS: levothyroxine (SYNTHROID) 88 mcg tablet Take 1 pill daily except one day per week take 1.5 pills (total 7.5 pills per week) metFORMIN (GLUCOPHAGE) 500 mg tablet Take 2 tablets by mouth twice daily and take 1 tablet daily at lunch simvastatin (ZOCOR) 40 mg tablet Take 1 tablet by mouth daily at bedtime. triamcinolone acetonide (KENALOG) 0.1 % cream Apply 1 application to affected area three times daily. Apply sparingly to area for rash/itching. multivitamin tablet Take 1 tablet by mouth once daily. ALLERGIES: ALLERGIES No Known Allergies VITALS: BP 130/88 Pulse 90 Temp 36.2 C (97.1 F) Resp 21 Wt 69.6 kg (153 lb 6.4 oz) SpO2 99% BMI 23.32 kg/m PHYSICAL EXAM: GEN: pleasant, no acute distress, alert, not oriented to place or time. provides history. HEENT: PERRL, EOMI, MMM NECK: supple, no lymphadenopathy, no thyromegaly. No midline or paraspinal tenderness. No trapezius or shoulder tenderness. HEART: regular rate, regular rhythm, no murmurs LUNGS: clear to auscultation, no wheezes or crackles, no increased WOB EXT: no clubbing, no cyanosis, no edema. Uses all extremities equally. ASSESSMENT/PLAN: 1. Neck pain - ICD9: 723.1, ICD10: M54.2 Limited history. Benign exam. Plans to follow up Wednesday for xray - XR CERV OTHER 4V AP/LAT/OBL Could consider PT if pain persists. Devin Carrasquillo MD documented in this encounter [facility] 02-27-2022 Note HNO ID: [id number] Author: Evita Jimenez APRN.LABORER DEMOLITION Service: ? Author Type: Nurse Specialist Type: [...] Video visit 01/29/2022 for Covid19. Prescribed paxlovid. [facility] 02/02/2022 for COVID-19 virus infection, dehydration, diarrhea, [...] Continue to note decreased memory, has declined agricultural appraiser in the past. Prefers to not take [...] Mood and Af (more content not included)... [facility] 02-27-2022 Instructions Evita Jimenez APRN.CNS - 02/27/2022 8:40 AM EDT Let us know if needing additional help at home or wanting to follow up with agricultural appraiser regarding memory documented in this encounter [facility] 02-27-2022 History of Present illness Narrative SUBJECTIVE: [...] Video visit 01/29/2022 for Covid19. Prescribed paxlovid. [facility] 02/02/2022 for COVID-19 virus infection, dehydration, diarrhea, [...] Continue to note decreased memory, has declined agricultural appraiser in the past. Prefers to not take [...] (diabetes mellitus) (HCC) History of endometrial cancer 2001 with radiation treatment Hypercholesteremia Hypothyroidism Serum calcium [...] problem - ICD9: 780.93, ICD10: R41.3 Declines agricultural appraiser / further evaluation at this time. Prefers to not take any additional medications at this time. would like to speak with SW about community resources. Recheck memory at next visit, follow up as indicated/willing. - PRIMARY CARE SOCIAL WORK CONSULT Evita Jimenez APRN.LABORER DEMOLITION Medical Decision Making: Data: Independent interpretation of test from other physician/QHCP Risk: Moderate: Drug management Medical Decision Making Level: 4 - Moderate documented in this encounter [facility] 01-29-2022 Note HNO ID: [id number] Author: Evita Jimenez APRN.LABORER DEMOLITION Service: ? Author Type: Nurse Specialist Type: Progress Notes Filed: 01/29/2022 1:51 PM Note Text: Telemedicine Follow-up for COVID-19 Infection Audio only was used for evaluation of this patient. Location of patient: [place] LETICIA Xiao is a 81 year old female [...] (COVID-19). Nirmatrelvir/Ritonavir (Paxlovid) Eligibility and Patient Discussion [facility] Formulary Restriction Criteria: Adult outpatients 18 years [...] to proceeding with nirmatrelvir/ritonavir treatment. Evita Jimenez APRN.LABORER DEMOLITION January 29, 2022 1:47 PM 20 min in call [facility] 01-29-2022 History of Present illness Narrative Telemedicine Follow-up for COVID-19 Infection Audio only was used for evaluation of this patient. Location of patient: [place] LETICIA Xiao is a 81 year old female [...] (COVID-19). Nirmatrelvir/Ritonavir (Paxlovid) Eligibility and Patient Discussion [facility] Formulary Restriction Criteria: Adult outpatients 18 years [...] min in call documented in this encounter [facility] 01-29-2022 Instructions Evita Jimenez APRN.CNS - 01/29/2022 [...] to your local emergency facility: Notify the filling machine operator that you are seeking care for [...] AND [facility] EMERGENCY USE AUTHORIZATION (EUA) OF PAXLOVID FOR CORONAVIRUS DISEASE 2019 (COVID-19) You are being given this Fact Sheet because your healthcare provider believes it is necessary to provide you with PAXLOVID for the treatment of gwim-li-dqmgvvbb coronavirus disease (COVID-19) caused by the SARS-CoV-2 [...] virus. COVID-19 illnesses have ranged from very fzdd-fk-jbvwhx, including illness resulting in . While information [...] is an investigational medicine used to treat jpjc-fp-gnsuvdwt COVID-19 in adults and children [12 years [...] of using PAXLOVID to treat people with memu-zj-jxaubbnk COVID-19. The FDA has authorized the emergency use of PAXLOVID for the treatment of iirp-zh-sfdimljg COVID-19 in adults and children [12 years [...] the medicines you take, including prescription and plpu-aam-dteujeb medicines, vitamins, and herbal supplements. Some medicines [...] oral midazolam Apalutamide Carbamazepine, phenobarbital, phenytoin Rifampin Mary Esther s Wort (hypericum perforatum) Taking PAXLOVID with [...] (remdesivir) is FDA-approved for the treatment of sgae-no-ixfeysji COVID-19 in certain adults and children. Talk with your doctor to see if Veklury is appropriate for you. Like PAXLOVID, FDA may also allow for the emergency use of other medicines to treat people with COVID-19. Go to https://www.fda.gov/emergency-pre paredness-andresponse/mcm-legal-r vorvrcfnd-aqm-wtrvpr-framework/em skjdmed-brc-mbfhnzkfxltzv for information on the emergency use of [...] if I am or ? There is econometrician treating women or mothers with PAXLOVID. For [...] to FDA MedWatch at www.fda.gov/medwatch or call 8-502-TJP7693 or you can report side effects to [facility]. at the contact information provided below. Website Fax number Telephone number [employer] How should I store PAXLOVID? Store PAXLOVID [...] (EUA). The EUA is supported by a Sheet Layer of Health and Human Service (HHS) declaration that circumstances exist to justify the emergency use of drugs and biological products during the COVID-19 pandemic. PAXLOVID for the treatment of ldlb-rd-xisigfqm COVID-19 in adults and children [12 years [...] telephone number provided below. Website Telephone number [employer] (9-426-U52-JVRU) You can also go to www.cooala - your brands or call for more information. Pfizer Distributed by [employer] [place] [address] [id number] Revised: 25 July 2021 documented in this encounter [facility] 01-29-2022 Miscellaneous Notes Phone call placed patient [...] ER if severe. documented in this encounter [facility] 01-28-2022 Note HNO ID: [id number] Author: Jackie Nunes APRN.PLATE SHOP HELPER Service: ? Author Type: Nurse Practitioner Type: [...] 09/29/12 Colonoscopy DILATION AND CURETTAGE DXAND/THER NONOBSTETRIC 1989 Dilation AND curettage LAPAROSCOPY SURG CHOLECYSTECTOMY 1996 [...] ICD10: Z20.822 - ASYMPTOMATIC ELECTIVE COVID-19 Jackie Nunes, [place].[facility] 01-28-2022 History of Present illness Narrative [...] Z20.822 - ASYMPTOMATIC ELECTIVE COVID-19 Jackie Nunes APRN.PLATE SHOP HELPER documented in this encounter [facility] 01-28-2022 Instructions Jackie Nunes APRN.PLATE SHOP HELPER - 01/28/2022 4:26 PM EDT How to Protect Yourself & Others from COVID-19 Wash your hands often Wash your hands often with soap and water for at least 20 seconds especially after you have been in a public place, or after blowing your nose, coughing, or sneezing. If soap and water are not readily available, use a hand hospitality manager that contains at least 60% alcohol. Cover [...] that you do not come to any [facility] facility without calling your primary care physician or speaking to a provider using a virtual visit using [facility]. You will be evaluated to determine if you require being seen in person or if you meet CDC guidelines for testing for COVID-19 based on symptoms, travel and exposures. If you meet criteria for testing, your [employer] provider or primary care physician will [...] at least 30 days of prescription medications, ekng-pfa-slandhc medicines, and supplies on hand in case [...] want to harm yourself or others: Call 911 if you feel like you want to harm yourself or others Visit the Disaster Distress Helpline [place] , [place] [address] Visit the National Domestic Violence Hotline or call and TTY Visit the National Suicide Prevention Lifeline or call and TTY or text Most importantly, don't panic. By following basic prevention measures such as hand hygiene and cover your cough, you are helping to keep yourself and others healthy. Additional information can be found on the [facility] and [facility] web sites: https://www.cdc.gov/coronavirus/2 019-nCoV/index.html https://[facility].org/coron avirus Beginning Home Isolation Isolation is [...] to your local emergency facility: Notify the filling machine operator that you are seeking care for [...] concerning to you. documented in this encounter [facility] 01-09-2022 Note HNO ID: [id number] Author: Rena Romo APRN.RANDI Service: ? Author Type: Nurse Practitioner Type: Progress Notes Filed: 01/09/2022 10:41 AM Note Text: Subjective The history is provided by the patient and the spouse. No squeegeer and former was used. GILL Xiao is a 81 [...] (diabetes mellitus) (HCC) History of endometrial cancer 2001 with radiation treatment Hypercholesteremia Hypothyroidism Serum calcium elevated 11/16/2016 Normal on 05/2017 labs I have confirmed and edited as necessary, the [facility] Review of Systems Constitutional: Negative for chills [...] warranting prompt ER evaluation. Rena Romo APRN.RANDI [facility] 01-09-2022 Instructions Rena Romo APRN.RANDI - 01/09/2022 10:33 AM EDT Images from [...] if no improvement documented in this encounter [facility] 01-09-2022 History of Present illness Narrative Images from the original note were not included. Subjective The history is provided by the patient and the spouse. No squeegeer and former was used. HPI Alexander Xiao is a 81 year [...] have confirmed and edited as necessary, the [facility] Review of Systems Constitutional: Negative for chills [...] Rena Romo APRN.RANDI documented in this encounter [facility] 12-04-2021 Miscellaneous Notes Letter mailed to pt notifying her of normal stool test. If questions to contact the office. Lashay Quinones Ma Please let her know fecal occult blood testing was negative documented in this encounter [facility] 12-02-2021 Miscellaneous Notes Patient returned call and [...] Abs Lymph 1.00 - 4.00 k/uL 1.87 Williamson% % 9.5 Abs Williamson <0.87 k/uL 0.52 Eosin% % 2.9 Abs [...] 80.0 ng/mL 42.6 documented in this encounter [facility] 11-27-2021 Note HNO ID: [id number] Author: Evita Jimenez APRN.LABORER DEMOLITION Service: ? Author Type: Nurse Specialist Type: [...] is. States sees routinely. Does not see vector control specialist. Hyperlipidemia. Ms. Xiao reports doing well on [...] mg/dL 15 C (more content not included)... [facility] 11-27-2021 History of Present illness Narrative SUBJECTIVE: [...] is. States sees routinely. Does not see vector control specialist. Hyperlipidemia. Ms. Xiao reports doing well on [...] immunization - ICD9: V03.89, ICD10: Z23 - PFIZER-[employer] COVID-19 VACCINE, AGE 12+ YR ([place]) [...] 4 - Moderate documented in this encounter [facility] 11-27-2021 Instructions Evita Jimenez APRN.CNS - 11/27/2021 9:13 AM EDT Check to see if your insurance covers Tdap and shingles vaccine and what location to get the vaccine usually best covered at your local pharmacy where you get prescriptions filled documented in this encounter [facility] 11-03-2021 Note HNO ID: [id number] Author: Russ Lama MA Service: ? Author Type: Neuro Intensivist Physician Type: Progress Notes Filed: 11/05/2021 1:08 PM Note Text: POPULATION HEALTH NAVIGATION OUTREACH Action/FYI Dr. Braun, the following orders have elfego pended for you to review and file: Pended Orders ID Status Description Pended By When Reason [id number] Pended HGB A1C Russ Lama MA 11/03/21 1317 [id number] Pended SCHEDULE LAB TESTING Russ Lama MA 11/03/21 1317 Patient is on [facility] list for below gaps and needs appt to address : E11.9 - DM (diabetes mellitus) ([facility]) - [id number] Last Billed 01/08/2020 Appointment type needed: Annual [...] Lama MA November 03, 2021 1:11 PM [facility] 11-03-2021 Note Patient Outreach (NE TNAV) NINOSKAALEXANDER ([id number]) 1940 F Date Time Provider Department 11/03/21 RUSS LAMA During your visit today, we recorded the following information about you: Russ Lama MA 11/05/2021 1:08 PM Signed [facility] NAVIGATION OUTREACH Action/FYI Dr. Braun, the following orders have elfego pended for you to review and file: Pended Orders ID Status Description Pended By When Reason [id number] Pended HGB A1C Russ Lama MA 11/03/21 1317 [id number] Pended SCHEDULE LAB TESTING Russ Lama MA 11/03/21 1317 Patient is on [facility] list for below gaps and needs appt to address : E11.9 - DM (diabetes mellitus) ([facility]) - [id number] Last Billed 01/08/2020 Appointment type needed: Annual [...] use of insulin (HCC) [E11.9] Order(s):HGB A1C [AAKAL9B] Order #: [id number] FUTURE SCHEDULE LAB TESTING [2012395] Order #: [id number] FUTURE Prescriptions as of 11/05/2021 - melatonin [...] Encounter Status:Closed by RUSS LAMA on 11/05/21 [facility] 11-03-2021 History of Present illness Narrative [facility] NAVIGATION OUTREACH Action/FYI Dr. Braun, the following orders have elfego pended for you to review and file: Pended Orders ID Status Description Pended By When Reason [id number] Pended HGB A1C Russ Lama MA 11/03/21 1317 [id number] Pended SCHEDULE LAB TESTING Russ Lama MA 11/03/21 1317 Patient is on [facility] list for below gaps and needs appt to address : E11.9 - DM (diabetes mellitus) ([facility]) - [id number] Last Billed 01/08/2020
Appointment type needed: Annual [...] 2021 1:11 PM documented in this encounter [facility] documented as of this encounter (statuses as of 11/05/2021) [facility]07-10-2017 History of Past illness Narrative* Problem Noted Date Resolved Date Serum calcium elevated 11/16/2016 8 Overview: Normal on 05/2017 labs documented as of this encounter (statuses as of 11/27/2021) [facility]07-10-2017 History of Past illness Narrative* Problem Noted Date Resolved Date Serum calcium elevated 11/16/2016 8 Overview: Normal on 05/2017 labs documented as of this encounter (statuses as of 12/02/2021) [address]-2017 History of Past illness Narrative* Problem Noted Date Resolved Date Serum calcium elevated 11/16/2016 8 Overview: Normal on 05/2017 labs documented as of this encounter (statuses as of 12/04/2021) [address]2017 History of Past illness Narrative* Problem Noted Date Resolved Date Serum calcium elevated 11/16/2016 8 Overview: Normal on 05/2017 labs documented as of this encounter (statuses as of 01/09/2022) [address]2017 History of Past illness Narrative* Problem Noted Date Resolved Date Serum calcium elevated 11/16/2016 8 Overview: Normal on 05/2017 labs documented as of this encounter (statuses as of 01/28/2022) [address]2017 History of Past illness Narrative* Problem Noted Date Resolved Date Serum calcium elevated 11/16/2016 8 Overview: Normal on 05/2017 labs documented as of this encounter (statuses as of 01/29/2022) [address]2017 History of Past illness Narrative* Problem Noted Date Resolved Date Serum calcium elevated 11/16/2016 8 Overview: Normal on 05/2017 labs documented as of this encounter (statuses as of 01/29/2022) [address]2017 History of Past illness Narrative* Problem Noted Date Resolved Date Serum calcium elevated 11/16/2016 8 Overview: Normal on 05/2017 labs documented as of this encounter (statuses as of 02/27/2022) [address]2017 History of Past illness Narrative* Problem Noted Date Diagnosed Date Resolved Date Serum calcium elevated 11/16/201612/10 Overview: Normal on 05/2017 labs documented as of this encounter (statuses as of 06/19/2023) [facility] note* Diagnosis Type 2 diabetes mellitus without complication, without long-term current use of insulin (HCC)- Primary [facility] Diagnosis Acquired hypothyroidism- Primary Unspecified hypothyroidism [...] Dermatophytosis of nail documented in this encounter [facility] note* Diagnosis Rash- Primary Rash and other nonspecific skin eruption Skin lesion Unspecified disorder of skin and subcutaneous tissue documented in this encounter [facility] note* Diagnosis Close exposure to COVID-19 virus- Primary documented in this encounter [facility] note* Diagnosis COVID-19 virus infection- Primary [facility]* Diagnosis COVID-19 virus infection- Primary Screening for diabetic retinopathy Screening for other eye conditions Encounter for immunization Need for other specified prophylactic vaccination against single bacterial disease Type 2 diabetes mellitus without complication, without long-term current use of insulin (HCC) Hypercholesteremia Pure hypercholesterolemia Acquired hypothyroidism Unspecified hypothyroidism Syncope, unspecified syncope type Diarrhea, unspecified type Memory problem Memory loss documented in this encounter [facility] note* Diagnosis Neck pain- Primary Cervicalgia documented in this encounter [facility] for referral (narrative)* Diagnostic Procedure Only (Routine) - Pending Review Specialty Diagnoses / Procedures Referred By Contac t Referred To Contact XR IMAGING Diagnoses Neck pain Procedures XR CERV OTHER 4V AP/LAT/OBL RADEX SPINE CERVICAL 4 OR 5 VIEWS Devin Carrasquillo MD [address] [place] [address] [place] [address] Referral ID Status Reason Start Date Expiration Date Visits Requested Visits Authorized [id number] Pending Review Auto-Generat ed Referral 06/19/2023 07/18/2024 1 1 [facility] Advance Directives Documents on File Type Date Recorded 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 Advance Directive(s) 11/28/2014 4:19 PM Documents on File Type Date Recorded 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 Advance Directive(s) 11/28/2014 4:19 PM Reason for Referral Specialty Diagnoses / Procedures Referred By Contac t Referred To Contact Podiatry Diagnoses Type 2 diabetes mellitus without complication, without long-term current use of insulin (HCC) Fungal nail infection Procedures CONSULT TO PODIATRY OFFICE/OUTPATIENT [facility] 60-74 MINUTES Evita Jimenez, CUSTOMER ACCOUNT EXECUTIVE.LABORER DEMOLITION [address] [place] [address] Referral ID Status Reason Start Date Expiration Date Visits Requested Visits Authorized [id number] Authorized PCP Requested Referral 11/27/2021 11/27/2022 1 1 Specialty Diagnoses / Procedures Referred By Contac t Referred To Contact Ophthalmology Diagnoses Type 2 diabetes mellitus without complication, without long-term current use of insulin (HCC) Procedures CONSULT TO OPHTHALMOLOGY OFFICE/OUTPATIENT [facility] 60-74 MINUTES Evita Jimenez, CUSTOMER ACCOUNT EXECUTIVE.LABORER DEMOLITION [address] [place] [address] Referral ID Status Reason Start Date Expiration Date Visits Requested Visits Authorized [id number] Authorized PCP Requested Referral 11/27/2021 11/27/2022 1 1 Specialty Diagnoses / Procedures Referred By Contac t Referred To Contact Gerontology Diagnoses Memory problem Procedures CONSULT TO GERIATRICS OFFICE/OUTPATIENT [facility] 60-74 MINUTES Evita Jimenez, CUSTOMER ACCOUNT EXECUTIVE.LABORER DEMOLITION [address] [place] [address] Referral ID Status Reason Start Date Expiration Date Visits Requested Visits Authorized [id number] Authorized PCP Requested Referral 11/27/2021 11/27/2022 1 1 Specialty Diagnoses / Procedures Referred By Contac t Referred To Contact Ophthalmology Diagnoses Screening for diabetic retinopathy Procedures CONSULT TO OPHTHALMOLOGY OFFICE/OUTPATIENT [facility] 60-74 MINUTES Evita Jimenez, CUSTOMER ACCOUNT EXECUTIVE.LABORER DEMOLITION [address] [place] [address] Referral ID Status Reason Start Date Expiration Date Visits Requested Visits Authorized [id number] Authorized PCP Requested Referral 02/27/2023 1 1 [...] or prosecute any alcohol or drug abuse patient.[facility] the event this information is protected by the Federal Confidentiality of Alcohol and Drug Abuse Patient Records regulations: The Federal rules restrict any use of the information to criminally investigate or prosecute any alcohol or drug abuse patient.[facility] the event this information is protected by the Federal Confidentiality of Alcohol and Drug Abuse Patient Records regulations: The Federal rules restrict any use of the information to criminally investigate or prosecute any alcohol or drug abuse patient.[facility] the event this information is protected by the Federal Confidentiality of Alcohol and Drug Abuse Patient Records regulations: The Federal rules restrict any use of the information to criminally investigate or prosecute any alcohol or drug abuse patient.[facility] HealthIn the event this information is protected by the Federal Confidentiality of Alcohol and Drug Abuse Patient Records regulations: The Federal rules restrict any use of the information to criminally investigate or prosecute any alcohol or drug abuse patient.[facility] the event this information is protected by the Federal Confidentiality of Alcohol and Drug Abuse Patient Records regulations: The Federal rules restrict any use of the information to criminally investigate or prosecute any alcohol or drug abuse patient.[facility] the event this information is protected by the Federal Confidentiality of Alcohol and Drug Abuse Patient Records regulations: The Federal rules restrict any use of the information to criminally investigate or prosecute any alcohol or drug abuse patient.[facility] the event this information is protected by the Federal Confidentiality of Alcohol and Drug Abuse Patient Records regulations: The Federal rules restrict any use of the information to criminally investigate or prosecute any alcohol or drug abuse patient.[facility] the event this information is protected by the Federal Confidentiality of Alcohol and Drug Abuse Patient Records regulations: The Federal rules restrict any use of the information to criminally investigate or prosecute any alcohol or drug abuse patient.[facility] the event this information is protected by the Federal Confidentiality of Alcohol and Drug Abuse Patient Records regulations: The Federal rules restrict any use of the information to criminally investigate or prosecute any alcohol or drug abuse patient.[facility] Reason for Visit (unrecogniz ed section and content) Reason Comments Physical Reason Comments Results, Lab Reason Comments Mass (LT) hand lump, x1 m th, denied pain, rash upper arm. Reason Comments Covid19 Concern Asymptomatic, possib le exposure x1 week Reason Comments Results COVID+ Reason Comments Covid Follow Up No Reason Comments Hospital F/U Reason Comments Pain Neck pain, fell a fe w months ago still having pain Care Teams (unrecognized sec tion and content) Retort Pre Cooker Relationship Specialty Start Date End Date Jose Braun MD [address] [facility] [place] [address] PCP - General Internal Medicine 10/30/15 Retort Pre Cooker Relationship Specialty Start Date End Date Jose Braun MD [address] [place] [address] PCP - General Internal Medicine 10/30/15 Retort Pre Cooker Relationship Specialty Start Date End Date Jose Braun MD [address] [place] [address] PCP - General Internal Medicine 10/30/15 Retort Pre Cooker Relationship Specialty Start Date End Date Evita Jimenez, CUSTOMER ACCOUNT EXECUTIVE.LABORER DEMOLITION [address] [place] [address] PCP - General Internal Medicine 01/09/22 Retort Pre Cooker Relationship Specialty Start Date End Date Evita Jimenez, CUSTOMER ACCOUNT EXECUTIVE.LABORER DEMOLITION [address] [place] [address] PCP - General Internal Medicine 01/09/22 Retort Pre Cooker Relationship Specialty Start Date End Date Jose Braun MD [address] [place] [address] PCP - General Internal Medicine 01/29/22 Retort Pre Cooker Relationship Specialty Start Date End Date Jose Braun MD [address] [facility] [place] [address] PCP - General Internal Medicine 01/29/22 Retort Pre Cooker Relationship Specialty Start Date End Date Jose Braun MD [address] [place] [address] PCP - General Internal Medicine 01/29/22 INFORMATION [...] BE BASED ON THE PRIMARY CLINICAL RECORDS. [employer] provides no warranty or guarantee of the accuracy or completeness of information in this document.
--- NOTE | 2023-06-19 19:25 | HP.PCM.HOS_ITS ---
HPI - General General Date of Admission: 06/19/23 Date of Service: 06/19/23 Chief Complaint: AMS HPI Narrative ALEXANDER CROFT, is a Patient is an 82-year-old female history of diabetes, dementia, hypothyroidism who presented to [facility] ED 06/19/2023 with confusion. Patient has declined for several years and was sent to [facility] to see a specialist but she did not want to go to family member did not force her. Has continued to decline since that time. Does report she has been more confused since about 11 AM when she was startled while sleeping in her chair. No fever at home, no head trauma. She has not been taking her medications at home. In the ED glucose is 415 with a hemoglobin slightly elevated at 15.4 but labs otherwise unremarkable. UA and CT had no acute process. Concern for delirium or encephalopathy and hospitalist contacted for admission. Patient evaluated at bedside with family member whom she lives with. Reportedly at baseline she does have difficulty with memory and being somewhat combative but overall does fairly well at home however since this morning has been increasingly combative, agitated, and confused and family member concerned that she has underlying medical process and also does not feel safe taking her home at this time. [facility] Medical History (Updated 06/19/23 @ 19:[address] Viri Mcclelland MD) COVID COVID-19 Diabetes Hypothyroidism Syncope Home Medications levothyroxine 88 mcg tablet 88 mcg PO DAILY thyroid 06/25/18 [History Last Taken Unknown] metformin 1,000 mg tablet 1,000 mg PO BIDCM diabetes 06/25/18 [History Last Taken Unknown] simvastatin 40 mg tablet 40 mg PO QHS cholesterol 06/25/18 [History Last Taken Unknown] Allergy/AdvReac Type Severity Reaction Status Date / Time No Known Allergies Allergy Verified 06/19/23 15:55 Surgical History History of hysterectomy Social History Smoking Status: Never smoker ROS ROS Narrative General: Denies fever/chills HENT: Denies headache, denies stuffy nose, denies sore throat EYES: Denies changes in vision Resp: Denies cough, denies shortness of breath Cardiac: Denies chest pain GI: Denies abdominal pain, denies changes in bowel, denies nausea/vomiting : Denies changes in urination Extremity: Denies swelling MSK: Denies weakness Neuro: Denies any numbness/tingling Heme: Denies any bleeding or bruising Skin: Denies rashes Psychiatric: Patient irritated and agitated Vital Signs Vital Signs Vital Signs: 06/19/23 15:55 06/19/23 17:00 06/19/23 18:43 Temperature 98.9 F 98.2 F Temperature Source Temporal Pulse Rate 81 94 65 Respiratory Rate 16 20 H 16 Blood Pressure 147/85 H 141/74 H 153/68 H Blood Pressure Mean 105 96 96 Pulse Ox 99 94 98 Oxygen Delivery Method Room Air Room Air Weight Weight: 69.6 kg Body Mass Index (BMI) 23.3 Physical Exam Narrative General: Alert, unable to answer orientation questions, agitated HEENT: Atraumatic, normocephalic, poor dentition Eyes: Anicteric, normal conjunctiva, extraocular movements grossly intact Neck: Supple Respiratory: Clear to auscultation bilaterally, normal respiratory effort Cardiovascular: Regular rate and rhythm GI: Soft, nontender, nondistended Extremities: No edema Musculoskeletal: Moving all extremities, did not note any asymmetry and movements Neuro: No overt focal neurological deficits Skin: No rashes appreciated Psych: Uncooperative, agitated Results Lab / Micro Data 06/19/23 16:30 06/19/23 16:30 Labs: Laboratory Results - last 24 hr 06/19/23 16:30: WBC 6.9, RBC 5.21, Hgb 15.4 H, Hct 45.7, MCV 87.7, MCH 29.6, MCHC 33.7, RDW Std Deviation 41.6, RDW Coeff of Saadia 12.9, Plt Count 205, MPV 9.4, Immature Gran % (Auto) 0.400, Neut % (Auto) 66.0, Lymph % (Auto) 24.3, Mcleod % (Auto) 7.0, Eos % (Auto) 1.3, Baso % (Auto) 1.0, Absolute Neuts (auto) 4.5, Absolute Lymphs (auto) 1.67, Nucleated RBC % 0, Sodium 134 L, Potassium 3.9, Chloride 101, Carbon Dioxide 27.0, Anion Gap 6, BUN 12, Creatinine 1.01, Estim Creat Clear Calc 43.32, Est GFR (MDRD) Af Amer 67, Est GFR (MDRD) Non-Af 56 L, BUN/Creatinine Ratio 11.9, Glucose 415 H, Calcium 9.6, Troponin I High Sens 9 06/19/23 16:33: POC Glucose 373 H 06/19/23 16:49: Urine Color Yellow, Urine Clarity Clear, Urine pH 6.0, Ur Spe cific [place] 1.015, Urine Protein Negative, Urine Glucose (UA) 1000 H, Urine Ketones 5 H, Urine Occult Blood Negative, Urine Nitrite Negative, Urine Bili nguyen Negative, Urine Urobilinogen Normal, Ur Leukocyte Esterase Negative, Urine RBC 0 SEEN, Urine WBC 0 SEEN, Ur Squamous Epith Cells 0-5 SEEN, Urine Bacteria 0 SEEN, Urine Mucus 0 SEEN Micro: Microbiology 06/19/23 16:49 Mucosa - Nose SARS-CoV-2, Influenza & RSV (PCR) - Final Imaging Radiology Impression Brain CT 06/19/23 16:20 IMPRESSION: No acute intracranial abnormality. Chronic involutional and ischemic changes of the brain. Electronically Signed: Agustín Warren MD at 17:58 EST , Chest X-Ray 06/19/23 17:15 IMPRESSION: No acute radiographic abnormalities. Electronically Signed: Agustín Warren MD at 18:00 EST , Assessment & Plan Assessment/Plan (1) AMS (altered mental status): (2) Hypothyroidism: (3) Diabetes: PLAN: Plan #Change in mental status -Does have some baseline dementia and steady decline however today has had significant worsening concerning that there may be underlying medical process given the acute nature -UA does not appear infectious -CT head no acute process -Patient reportedly not taking her medicines so is possible that significant thyroid abnormality could be cause or contributor, check TSH, free T3, free T4 -Check B12, syphilis -Also check ESR and CRP -Patient also has significantly elevated glucose despite only being on metformin before though not yet identified any underlying infectious process, check A1c -Schedule melatonin -Schedule Seroquel with Seroquel as needed -If laboratory workup unrevealing may benefit from ordering MRI in the a.m. -Patient has no overt focal deficits and suspect this is more encephalopathy or delirium so do not think NIH and stroke workup acutely necessary at this time as this is more global and sounds to be more likely underlying medical nature -In ED patient did make comments about killing herself, when asked about plan she was unable to confirm nor deny and is very evasive and would not commit to safety at that time, short-term suicide precautions, may need psych eval once medically cleared if no medical etiology identified patient still has any ideations or threats. Family member at bedside reports that occasionally she will threaten to shoot herself or make comments like that but had not made any earlier today until exam -Case management consult #Hypothyroidism -Resume Synthroid -TSH, free T4 as patient has not been taking her medication and abnormal thyroid function could be a cause or contributor to present #Type 2 diabetes mellitus -Glucose checks and sliding scale insulin -A1c #DVT ppx: Lovenox subcu Viri Mcclelland MD Time spent in the patient's overall evaluation,decision-making process, review of diagnostic data, adjustment of management, discussion with other providers, nursing nursing and ancillary staff involved in patient's care documentation, 58 Minutes Charges/Coding Visit Charges Inpatient E&M: 40500 Init Hosp L2
[2023-06-19 20:00] VITALS: BP 146/80; PULSE 67; RESP 16; TEMP 36.9; O2SAT 100
--- OUTSIDE RECORDS SUMMARY | 2023-06-19 20:09 | XMS RPT_ITS | CCD ---
Author Name Unknown Address [address] [place] [address] Organization [facility] Care Team Providers Care Lamination Technician Name Role Phone Jose Braun MD Primary Care Provider Tony OVERTON.Evita RUELAS Primary Care Provider [phone] Jose Braun MD Primary Care Provider JOSE [...] 97.11 [degF] Devin Carrasquillo MD Work Phone: [facility] 06-19-2023 12:59-0500 Body weight 69.58 kg Devin Carrasquillo MD Work Phone: [facility] 06-19-2023 12:59-0500 Diastolic blood pressure 88 mm[Hg] Devin Carrasquillo MD Work Phone: [facility] 06-19-2023 12:59-0500 Heart rate 90 /min Devin Carrasquillo MD Work Phone: [facility] 06-19-2023 12:59-0500 Respiratory rate 21 /min Devin Carrasquillo MD Work Phone: [facility] 06-19-2023 12:59-0500 SaO2% (BldA) [Mass fraction] 99 % Devin Carrasquillo MD Work Phone: [facility] 06-19-2023 12:59-0500 Systolic blood pressure 130 mm[Hg] Devin Carrasquillo MD Work Phone: [facility] 02-27-2022 08:17-0400 Body weight 63.5 kg Evita Jimenez NURSE PRACTITIONER ADULT.AUDIOVISUAL AIDS TECHNICIAN Work Phone: [facility] 02-27-2022 08:17-0400 Diastolic blood pressure 80 mm[Hg] Evita Jimenez NURSE PRACTITIONER ADULT.AUDIOVISUAL AIDS TECHNICIAN Work Phone: [facility] 02-27-2022 08:17-0400 Heart rate 83 /min Evita Jimenez NURSE PRACTITIONER ADULT.AUDIOVISUAL AIDS TECHNICIAN Work Phone: [facility] 02-27-2022 08:17-0400 Respiratory rate 16 /min Evita Jimenez NURSE PRACTITIONER ADULT.AUDIOVISUAL AIDS TECHNICIAN Work Phone: [facility] 02-27-2022 08:17-0400 SaO2% (BldA) [Mass fraction] 98 % Evita Jimenez NURSE PRACTITIONER ADULT.AUDIOVISUAL AIDS TECHNICIAN Work Phone: [facility] 02-27-2022 08:17-0400 Systolic blood pressure 122 mm[Hg] Evita Jimenez NURSE PRACTITIONER ADULT.AUDIOVISUAL AIDS TECHNICIAN Work Phone: [facility] 01-28-2022 16:11-0400 Body temperature 99.39 [degF] Jackie Nunes NURSE PRACTITIONER ADULT.BARBER SHOP OPERATOR Work Phone: [facility] 01-28-2022 16:11-0400 Body weight 65.05 kg Jackie Praisler-Wood NURSE PRACTITIONER ADULT.BARBER SHOP OPERATOR Work Phone: [facility] 01-28-2022 16:11-0400 Diastolic blood pressure 82 mm[Hg] Jackie Praisler-Wood NURSE PRACTITIONER ADULT.BARBER SHOP OPERATOR Work Phone: [facility] 01-28-2022 16:11-0400 Heart rate 86 /min Jackie Praisler-Wood NURSE PRACTITIONER ADULT.BARBER SHOP OPERATOR Work Phone: [facility] 01-28-2022 16:11-0400 Respiratory rate 18 /min Jackie Praisler-Wood NURSE PRACTITIONER ADULT.BARBER SHOP OPERATOR Work Phone: [facility] 01-28-2022 16:11-0400 SaO2% (BldA) [Mass fraction] 95 % Jackie Praisler-Wood NURSE PRACTITIONER ADULT.BARBER SHOP OPERATOR Work Phone: [facility] 01-28-2022 16:11-0400 Systolic blood pressure 120 mm[Hg] Jackie Praisler-Wood NURSE PRACTITIONER ADULT.BARBER SHOP OPERATOR Work Phone: [facility] 01-09-2022 10:08-0400 Body temperature 97.81 [degF] Rena Demetrius NURSE PRACTITIONER ADULT.BARBER SHOP OPERATOR Work Phone: [facility] 01-09-2022 10:08-0400 Body weight 66.41 kg Rena Demetrius NURSE PRACTITIONER ADULT.BARBER SHOP OPERATOR Work Phone: [facility] 01-09-2022 10:08-0400 Diastolic blood pressure 78 mm[Hg] Rena Demetrius NURSE PRACTITIONER ADULT.BARBER SHOP OPERATOR Work Phone: [facility] 01-09-2022 10:08-0400 Heart rate 110 /min Rena Demetrius NURSE PRACTITIONER ADULT.BARBER SHOP OPERATOR Work Phone: [facility] 01-09-2022 10:08-0400 Respiratory rate 16 /min Rena Demetrius NURSE PRACTITIONER ADULT.BARBER SHOP OPERATOR Work Phone: [facility] 01-09-2022 10:08-0400 SaO2% (BldA) [Mass fraction] 98 % Rena Demetrius NURSE PRACTITIONER ADULT.BARBER SHOP OPERATOR Work Phone: [facility] 01-09-2022 10:08-0400 Systolic blood pressure 132 mm[Hg] Rena Demetrius NURSE PRACTITIONER ADULT.BARBER SHOP OPERATOR Work Phone: [facility] 11-27-2021 09:06-0400 Body weight 66.22 kg Evita Jimenez NURSE PRACTITIONER ADULT.AUDIOVISUAL AIDS TECHNICIAN Work Phone: [facility] 11-27-2021 09:06-0400 Diastolic blood pressure 80 mm[Hg] Evita Jimenez NURSE PRACTITIONER ADULT.AUDIOVISUAL AIDS TECHNICIAN Work Phone: [facility] 11-27-2021 09:06-0400 Heart rate 78 /min Evita Jimenez NURSE PRACTITIONER ADULT.AUDIOVISUAL AIDS TECHNICIAN Work Phone: [facility] 11-27-2021 09:06-0400 Respiratory rate 16 /min Evita Jimenez NURSE PRACTITIONER ADULT.AUDIOVISUAL AIDS TECHNICIAN Work Phone: [facility] 11-27-2021 09:06-0400 SaO2% (BldA) [Mass fraction] 98 % Evita Jimenez NURSE PRACTITIONER ADULT.AUDIOVISUAL AIDS TECHNICIAN Work Phone: [facility] 11-27-2021 09:06-0400 Systolic blood pressure 138 mm[Hg] Evita Jimenez NURSE PRACTITIONER ADULT.AUDIOVISUAL AIDS TECHNICIAN Work Phone: [facility] Encounters Encounter Date Encounter Type Care Provider Facility Start: 06-19-2023 End: 06-19-2023 Patient encounter procedure Devin Carrasquillo MD Work Phone: [facility] Plan of Treatment Date Care Activity Detail Author Start: 05-10-2023 Advance Directive Discussion Advance Directive Discussion [facility] Start: 05-10-2023 Depression Assessment Depression Ass essment [facility] Start: 02-27-2023 3 comp foot exam completed DIABETIC FOOT EXAM [facility] Start: 02-27-2023 Diabetic foot examination Diabetic Foot Exam [facility] Start: 01-08-2023 Covid-19 Vaccine () Covid-19 Vaccine () [facility] Start: 12-01-2022 FECAL OCCULT BLOOD FECAL OCCULT BLOO D [facility] Start: 11-27-2022 3 comp foot exam completed DIABETIC FOOT EXAM [facility] Start: 11-27-2022 Hepatitis B surface antibody level LDL CHOLESTEROL [facility] Start: 05-30-2022 Hemoglobin A1c measurement HbA1C [facility] Start: 05-30-2022 Hemoglobin A1c/Hemoglobin.total in Blood HBA1C [facility] Start: 05-11-2022 End: 02-05-2023 ALBUMIN/CREAT RATIO RND UR ALBUMIN/CREAT RATIO RND UR Lab Routine Type 2 diabetes mellitus without complication, without long-term current use of insulin (HCC) Expected: 05/11/2022 (Approximate), Expires: 02/05/2023 [facility] Work Phone: Immunizations Immunization Date Immunization Notes Care Provider Jayda reed 02-25-2022 influenza, high dose seasonal, preservative-free Evita Jimenez NURSE PRACTITIONER ADULT.AUDIOVISUAL AIDS TECHNICIAN Work Phone: [facility] Work Phone: 06-28-2019 influenza, high dose seasonal, preservative-free Russ Lama MA [facility] 03-11-2018 influenza, high dose seasonal, preservative-free Russ Lama [facility] Work Phone: 12-10-2017 pneumococcal conjuga te vaccine, 13 valent Russ Lama MA [facility] 06-07-2017 influenza, high dose seasonal, preservative-free Russ Lama MA [facility] 05-12-2016 influenza, high dose seasonal, preservative-free Russ Lama MA [facility] 04-08-2011 pneumococcal polysaccharide vaccine, 23 valent Russ Lama MA [facility] 09-25-2010 tetanus toxoid, redu binta diphtheria toxoid, and acellular pertussis vaccine, adsorbed Russ Lama MA [facility] 04-11-2007 zoster vaccine, live Russ Lama [facility] NEGATED: Highlighted row has not occurred!11-27-2021 COVID-19 vaccine, age 12+ yr ([facility] [place]) Evita Jimenez NURSE PRACTITIONER ADULT.AUDIOVISUAL AIDS TECHNICIAN Work Phone: [facility] Work Phone: Payers Date Payer Category Payer Medicare [id number] 2011 Private Health Insurance AET[employer] A ETNA MEDICARE SUPPLEMENT [id number] 2011-Present [phone] [address] [address] [place] [address] Indemnity [id number] 2011 Private Health Insurance AET[employer] A ETNA MEDICARE SUPPLEMENT [id number] 2011-Present [phone] [address] [address] [place] [address] Indemnity [id number] 2005 Medicare MEDICARE MEDICAR E A AND B [id number] 2005-Present [phone] [place] [address] Medicare [id number] 2005 Medicare MEDICARE MEDICAR E A AND B [id number] 2005-Present [phone] [place] [address] Medicare [id number] 2005 Medicare [id number] Social History Date Type Detail Facility Start: 10-30-2015 End: 01-09-2022 Tobacco smoking status [facility] Never smoked tobacco [facility] Start: 10-30-2015 End: 01-09-2022 Tobacco use and exposure Smokeless tobacco non-user [facility] Start: 02-14-2021 End: 06-19-2023 Alcohol intake Not Asked [facility] Start: 1940 Sex Assigned At Not on file [facility] Start: 11-17-2021 End: 02-27-2022 Exposure to SARS-CoV-2 (event) Not sure [facility] Work Phone: Start: 01-19-2022 End: 01-29-2022 Exposure to SARS-CoV-2 (event) Unable to assess [facility] Work Phone: Start: 06-01-2022 End: 06-19-2023 History of Social function [facility] Work Phone: Start: 06-01-2022 End: 06-19-2023 Tobacco use panel [facility] Work Phone: Adult Depression Screening Assessment 0 [facility] Work Phone: Clinical Notes 11-16-2016 to 06-19-2023 Devin Carrasquillo MD - 06/19/2023 1:13 PM ESTPatient InstructionsEvita Jimenez APRN.AUDIOVISUAL AIDS TECHNICIAN - 02/27/2022 8:20 AM Lorenzo Jimenez APRN.AUDIOVISUAL AIDS TECHNICIAN - 01/29/2022 1:40 PM EDTPatient InstructionsPatient Instructions [...] Devin Carrasquillo MD documented in this encounter [facility] 02-27-2022 Note HNO ID: [id number] Author: Evita Jimenez APRN.AUDIOVISUAL AIDS TECHNICIAN Service: ? Author Type: Nurse Specialist Type: [...] Video visit 01/29/2022 for Covid19. Prescribed paxlovid. [facility] 02/02/2022 for COVID-19 virus infection, dehydration, [...] Continue to note decreased memory, has declined stave machine tender in the past. Prefers to not take [...] Mood and Af (more content not included)... [facility] 02-27-2022 Instructions Evita Jimenez APRN.CNS - 02/27/2022 8:40 AM EDT Let us know if needing additional help at home or wanting to follow up with stave machine tender regarding memory documented in this encounter [facility] 02-27-2022 History of Present illness Narrative [...] Video visit 01/29/2022 for Covid19. Prescribed paxlovid. [facility] 02/02/2022 for COVID-19 virus infection, dehydration, [...] Continue to note decreased memory, has declined stave machine tender in the past. Prefers to not take [...] problem - ICD9: 780.93, ICD10: R41.3 Declines stave machine tender / further evaluation at this time. Prefers to not take any additional medications at this time. would like to speak with SW about community resources. Recheck memory at next visit, follow up as indicated/willing. - PRIMARY CARE SOCIAL WORK CONSULT Evita Jimenez APRN.AUDIOVISUAL AIDS TECHNICIAN Medical Decision Making: Data: Independent interpretation of test from other physician/QHCP Risk: Moderate: Drug management Medical Decision Making Level: 4 - Moderate documented in this encounter [facility] 01-29-2022 Note HNO ID: [id number] Author: Evita Jimenez APRN.AUDIOVISUAL AIDS TECHNICIAN Service: ? Author Type: Nurse Specialist Type: Progress Notes Filed: 01/29/2022 1:51 PM Note Text: Telemedicine Follow-up for COVID-19 Infection Audio only was used for evaluation of this patient. Location of patient: [place] LETICIA Xiao is a 81 year old [...] (COVID-19). Nirmatrelvir/Ritonavir (Paxlovid) Eligibility and Patient Discussion [facility] Formulary Restriction Criteria: Adult outpatients 18 [...] to proceeding with nirmatrelvir/ritonavir treatment. Evita Jimenez APRN.AUDIOVISUAL AIDS TECHNICIAN January 29, 2022 1:47 PM 20 min in call [facility] 01-29-2022 History of Present illness Narrative Telemedicine Follow-up for COVID-19 Infection Audio only was used for evaluation of this patient. Location of patient: [place] LETICIA Xiao is a 81 year old [...] (COVID-19). Nirmatrelvir/Ritonavir (Paxlovid) Eligibility and Patient Discussion [facility] Formulary Restriction Criteria: Adult outpatients 18 [...] min in call documented in this encounter [facility] 01-29-2022 Instructions Evita Jimenez APRN.CNS - [...] to your local emergency facility: Notify the transfer station operator that you are seeking care for [...] you with PAXLOVID for the treatment of hpvc-ea-sqmzzdxw coronavirus disease (COVID-19) caused by the SARS-CoV-2 [...] virus. COVID-19 illnesses have ranged from very jzum-gy-caofsh, including illness resulting in . While information [...] is an investigational medicine used to treat ikku-gu-uaywqqnp COVID-19 in adults and children [12 years [...] of using PAXLOVID to treat people with mazb-hy-zoddajzf COVID-19. The FDA has authorized the emergency use of PAXLOVID for the treatment of yuwv-gb-iyzzohvh COVID-19 in adults and children [12 years [...] the medicines you take, including prescription and haym-kkv-bsjngwj medicines, vitamins, and herbal supplements. Some medicines [...] oral midazolam Apalutamide Carbamazepine, phenobarbital, phenytoin Rifampin Loma s Wort (hypericum perforatum) Taking PAXLOVID with [...] (remdesivir) is FDA-approved for the treatment of sioe-ru-acfgttcy COVID-19 in certain adults and children. Talk with your doctor to see if Veklury is appropriate for you. Like PAXLOVID, FDA may also allow for the emergency use of other medicines to treat people with COVID-19. Go to https://www.fda.gov/emergency-pre paredness-andresponse/mcm-legal-r nhgnouuwc-jbj-lpwweq-framework/em cmltetf-tfx-nxzwsjabjrpey for information on the emergency use of [...] if I am or ? There is technology engineer treating women or mothers with PAXLOVID. For [...] to FDA MedWatch at www.fda.gov/medwatch or call 6-826-BEY5973 or you can report side effects to [employer]. at the contact information provided below. Website Fax number Telephone number [employer] How should I store PAXLOVID? Store PAXLOVID [...] (EUA). The EUA is supported by a [employer] of Health and Human Service (HHS) declaration that circumstances exist to justify the emergency use of drugs and biological products during the COVID-19 pandemic. PAXLOVID for the treatment of eezx-ql-vbsnugms COVID-19 in adults and children [12 years [...] telephone number provided below. Website Telephone number [employer] (5-454-T20-OTBU) You can also go to www.YOUnite or call for more information. Pfizer Distributed by [facility] [place] [address] LAB-1494-2.1 Revised: 25 July 2021 documented in this encounter [facility] 01-29-2022 Miscellaneous Notes Phone call placed [...] ER if severe. documented in this encounter [facility] 01-28-2022 Note HNO ID: [id number] Author: Jackie Nunes APRN.BARBER SHOP OPERATOR Service: ? Author Type: Nurse Practitioner Type: [...] Z20.822 - ASYMPTOMATIC ELECTIVE COVID-19 Jackie Nunes, [place] 01-28-2022 History of Present illness Narrative [...] Z20.822 - ASYMPTOMATIC ELECTIVE COVID-19 Jackie Nunes APRN.BARBER SHOP OPERATOR documented in this encounter [facility] 01-28-2022 Instructions Jackie Nunes APRN.BARBER SHOP OPERATOR - 01/28/2022 4:26 PM EDT How to Protect Yourself & Others from COVID-19 Wash your hands often Wash your hands often with soap and water for at least 20 seconds especially after you have been in a public place, or after blowing your nose, coughing, or sneezing. If soap and water are not readily available, use a hand head of product that contains at least 60% alcohol. Cover [...] that you do not come to any [facility] facility without calling your primary care physician or speaking to a provider using a virtual visit using [facility] [employer]. You will be evaluated to determine if you require being seen in person or if you meet CDC guidelines for testing for COVID-19 based on symptoms, travel and exposures. If you meet criteria for testing, your [employer] provider or primary care physician will [...] at least 30 days of prescription medications, vqmg-nep-bsjcrum medicines, and supplies on hand in case [...] Helpline call , [place] [address] Visit the National Domestic Violence Hotline or call and TTY Visit the National Suicide Prevention Lifeline or call and TTY or text Most importantly, don't panic. By following basic prevention measures such as hand hygiene and cover your cough, you are helping to keep yourself and others healthy. Additional information can be found on the [facility] and [facility] web sites: https://www.cdc.gov/coronavirus/2 019-nCoV/index.html https://[facility].org/coron avirus Beginning Home Isolation Isolation is used [...] to your local emergency facility: Notify the transfer station operator that you are seeking care for [...] concerning to you. documented in this encounter [facility] 01-09-2022 Note HNO ID: [id number] Author: Rena Romo APRN.RANDI Service: ? Author Type: Nurse Practitioner Type: Progress Notes Filed: 01/09/2022 10:41 AM Note Text: Subjective The history is provided by the patient and the spouse. No professor of languages was used. GILL Xiao is a 81 [...] have confirmed and edited as necessary, the [facility] Review of Systems Constitutional: Negative for [...] warranting prompt ER evaluation. Rena Romo APRN.RANDI [facility] 01-09-2022 Instructions Rena Romo APRN.RANDI [...] if no improvement documented in this encounter [facility] 01-09-2022 History of Present illness Narrative Images from the original note were not included. Subjective The history is provided by the patient and the spouse. No professor of languages was used. HPI Alexander Xiao is a [...] have confirmed and edited as necessary, the [facility] Review of Systems Constitutional: Negative for [...] Rena Romo APRN.RANDI documented in this encounter [facility] 12-04-2021 Miscellaneous Notes Letter mailed to pt notifying her of normal stool test. If questions to contact the office. Lashay Quinones Ma Please let her know fecal occult blood testing was negative documented in this encounter [facility] 12-02-2021 Miscellaneous Notes Patient returned call [...] Abs Lymph 1.00 - 4.00 k/uL 1.87 [place]% % 9.5 Abs [place] <0.87 k/uL 0.52 Eosin% % 2.9 Abs [...] 80.0 ng/mL 42.6 documented in this encounter [facility] 11-27-2021 Note HNO ID: [id number] Author: Evita Jimenez APRN.AUDIOVISUAL AIDS TECHNICIAN Service: ? Author Type: Nurse Specialist Type: [...] is. States sees routinely. 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 Hyperlipidemia. Ms. Xiao reports doing well on [...] mg/dL 15 C (more content not included)... [facility] 11-27-2021 History of Present illness [...] is. States sees routinely. 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 Hyperlipidemia. Ms. Xiao reports doing well on [...] immunization - ICD9: V03.89, ICD10: Z23 - PFIZER-Glocal COVID-19 VACCINE, AGE 12+ YR ([place]) [...] 4 - Moderate documented in this encounter [facility] 11-27-2021 Instructions Evita Jimenez APRN.CNS - 11/27/2021 9:13 AM EDT Check to see if your insurance covers Tdap and shingles vaccine and what location to get the vaccine usually best covered at your local pharmacy where you get prescriptions filled documented in this encounter [facility] 11-03-2021 Note HNO ID: [id number] Author: Russ Lama MA Service: ? Author Type: Phone Counselor Type: Progress Notes Filed: 11/05/2021 1:08 PM Note Text: POPULATION HEALTH NAVIGATION OUTREACH Action/FYI Dr. Braun, the following orders have elfego pended for you to review and file: Pended Orders ID Status Description Pended By When Reason [id number] Pended HGB A1C Russ Lama MA 11/03/21 1317 [id number] Pended SCHEDULE LAB TESTING Russ Lama MA 11/03/21 1317 Patient is on [facility] list for below gaps and needs appt to address : E11.9 - DM (diabetes mellitus) ([facility]) - [id number] Last Billed 01/08/2020 Appointment type needed: Annual [...] Lama MA November 03, 2021 1:11 PM [facility] 11-03-2021 Note Patient Outreach (NE TNAV) NINOSKAALEXANDER ([id number]) 1940 F Date Time Provider Department 11/03/21 RUSS LAMA During your visit today, we recorded the following information about you: Russ Lama MA 11/05/2021 1:08 PM Signed POPULATION HEALTH NAVIGATION OUTREACH Action/FYI Dr. Braun, the following orders have elfego pended for you to review and file: Pended Orders ID Status Description Pended By When Reason [id number] Pended HGB A1C Russ Lama MA 11/03/21 1317 [id number] Pended SCHEDULE LAB TESTING Russ Lama MA 11/03/21 1317 Patient is on [facility] list for below gaps and needs appt to address : E11.9 - DM (diabetes mellitus) ([facility]) - [id number] Last Billed 01/08/2020 Appointment type needed: Annual [...] use of insulin (HCC) [E11.9] Order(s):HGB A1C [[id number]] Order #: [id number] FUTURE SCHEDULE LAB TESTING [[id number]] Order #: [id number] FUTURE Prescriptions as of 11/05/2021 - melatonin [...] Encounter Status:Closed by RUSS LAMA on 11/05/21 [facility] 11-03-2021 History of Present illness Narrative POPULATION HEALTH NAVIGATION OUTREACH Action/FYI Dr. Braun, the following orders have elfego pended for you to review and file: Pended Orders ID Status Description Pended By When Reason [id number] Pended HGB A1C Russ Lama MA 11/03/21 1317 [id number] Pended SCHEDULE LAB TESTING Russ Lama MA 11/03/21 1317 Patient is on [facility] list for below gaps and needs appt to address : E11.9 - DM (diabetes mellitus) ([facility]) - [id number] Last Billed 01/08/2020
Appointment type needed: Annual [...] 2021 1:11 PM documented in this encounter [facility] documented as of this encounter (statuses as of 11/05/2021) [facility]2017 History of Past illness Narrative* Problem Noted Date Resolved Date Serum calcium elevated 11/16/2016 8 Overview: Normal on 05/2017 labs documented as of this encounter (statuses as of 11/27/2021) [facility]-10-2017 History of Past illness Narrative* Problem Noted Date Resolved Date Serum calcium elevated 11/16/2016 8 Overview: Normal on 05/2017 labs documented as of this encounter (statuses as of 12/02/2021) [address]10-2017 History of Past illness Narrative* Problem Noted Date Resolved Date Serum calcium elevated 11/16/2016 8 Overview: Normal on 05/2017 labs documented as of this encounter (statuses as of 12/04/2021) [address]-2017 History of Past illness Narrative* Problem Noted Date Resolved Date Serum calcium elevated 11/16/2016 8 Overview: Normal on 05/2017 labs documented as of this encounter (statuses as of 01/09/2022) [address]-2017 History of Past illness Narrative* Problem Noted Date Resolved Date Serum calcium elevated 11/16/2016 8 Overview: Normal on 05/2017 labs documented as of this encounter (statuses as of 01/28/2022) [address]-2017 History of Past illness Narrative* Problem Noted Date Resolved Date Serum calcium elevated 11/16/2016 8 Overview: Normal on 05/2017 labs documented as of this encounter (statuses as of 01/29/2022) [address]-2017 History of Past illness Narrative* Problem Noted Date Resolved Date Serum calcium elevated 11/16/2016 8 Overview: Normal on 05/2017 labs documented as of this encounter (statuses as of 01/29/2022) [address]-2017 History of Past illness Narrative* Problem Noted Date Resolved Date Serum calcium elevated 11/16/2016 8 Overview: Normal on 05/2017 labs documented as of this encounter (statuses as of 02/27/2022) [address]10-2017 History of Past illness Narrative* Problem Noted Date Diagnosed Date Resolved Date Serum calcium elevated 11/16/201612/10 Overview: Normal on 05/2017 labs documented as of this encounter (statuses as of 06/19/2023) [facility] note* Diagnosis Type 2 diabetes mellitus without complication, without long-term current use of insulin (HCC)- [facility] Diagnosis Acquired hypothyroidism- Primary Unspecified hypothyroidism [...] Dermatophytosis of nail documented in this encounter [facility] note* Diagnosis Rash- Primary Rash and other nonspecific skin eruption Skin lesion Unspecified disorder of skin and subcutaneous tissue documented in this encounter [facility] note* Diagnosis Close exposure to COVID-19 virus- Primary documented in this encounter [facility] note* Diagnosis COVID-19 virus infection- Primary [facility] Diagnosis COVID-19 virus infection- Primary [...] problem Memory loss documented in this encounter [facility] note* Diagnosis Neck pain- Primary Cervicalgia documented in this encounter [facility] for referral (narrative)* Diagnostic Procedure Only (Routine) - Pending Review Specialty Diagnoses / Procedures Referred By Contac t Referred To Contact XR IMAGING Diagnoses Neck pain Procedures XR CERV OTHER 4V AP/LAT/OBL RADEX SPINE CERVICAL 4 OR 5 VIEWS Devin Carrasquillo MD [address] [place] [id number] [place] [id number] Referral ID Status Reason Start Date Expiration Date Visits Requested Visits Authorized [id number] Pending Review Auto-Generat ed Referral 06/19/2023 07/18/2024 1 1 [facility] Advance Directives Documents on File Type Date Recorded Patient Critical Care Registered Nurse Expl anation Advance Directive(s) 11/28/2014 4:19 PM Documents on File Type Date Recorded Patient Critical Care Registered Nurse Expl anation Advance Directive(s) 11/28/2014 4:19 PM Reason for Referral Specialty Diagnoses / Procedures Referred By Contac t Referred To Contact Podiatry Diagnoses Type 2 diabetes mellitus without complication, without long-term current use of insulin (HCC) Fungal nail infection Procedures CONSULT TO PODIATRY OFFICE/OUTPATIENT [facility] 60-74 MINUTES Evita Jimenez, NURSE PRACTITIONER ADULT.AUDIOVISUAL AIDS TECHNICIAN [address] [place] [address] Referral ID Status Reason Start Date Expiration Date Visits Requested Visits Authorized [id number] Authorized PCP Requested Referral 11/27/2021 11/27/2022 1 1 Specialty Diagnoses / Procedures Referred By Contac t Referred To Contact Ophthalmology Diagnoses Type 2 diabetes mellitus without complication, without long-term current use of insulin (HCC) Procedures CONSULT TO OPHTHALMOLOGY OFFICE/OUTPATIENT [facility] 60-74 MINUTES Evita Jimenez, NURSE PRACTITIONER ADULT.AUDIOVISUAL AIDS TECHNICIAN [address] [place] [address] Referral ID Status Reason Start Date Expiration Date Visits Requested Visits Authorized [id number] Authorized PCP Requested Referral 11/27/2021 11/27/2022 1 1 Specialty Diagnoses / Procedures Referred By Contac t Referred To Contact Gerontology Diagnoses Memory problem Procedures CONSULT TO GERIATRICS OFFICE/OUTPATIENT [facility] 60-74 MINUTES Evita Jimenez, NURSE PRACTITIONER ADULT.AUDIOVISUAL AIDS TECHNICIAN [address] [place] [address] Referral ID Status Reason Start Date Expiration Date Visits Requested Visits Authorized [id number] Authorized PCP Requested Referral 11/27/2021 11/27/2022 1 1 Specialty Diagnoses / Procedures Referred By Contac t Referred To Contact Ophthalmology Diagnoses Screening for diabetic retinopathy Procedures CONSULT TO OPHTHALMOLOGY OFFICE/OUTPATIENT [facility] 60-74 MINUTES Evita Jimenez, NURSE PRACTITIONER ADULT.AUDIOVISUAL AIDS TECHNICIAN [address] [place] [address] Referral ID Status Reason Start Date Expiration Date Visits Requested Visits Authorized [id number] Authorized PCP Requested Referral 02/27/2023 1 1 [...] or prosecute any alcohol or drug abuse patient.[facility] the event this information is protected by the Federal Confidentiality of Alcohol and Drug Abuse Patient Records regulations: The Federal rules restrict any use of the information to criminally investigate or prosecute any alcohol or drug abuse patient.[facility] the event this information is protected by the Federal Confidentiality of Alcohol and Drug Abuse Patient Records regulations: The Federal rules restrict any use of the information to criminally investigate or prosecute any alcohol or drug abuse patient.[facility] the event this information is protected by the Federal Confidentiality of Alcohol and Drug Abuse Patient Records regulations: The Federal rules restrict any use of the information to criminally investigate or prosecute any alcohol or drug abuse patient.[facility] the event this information is protected by the Federal Confidentiality of Alcohol and Drug Abuse Patient Records regulations: The Federal rules restrict any use of the information to criminally investigate or prosecute any alcohol or drug abuse patient.[facility] the event this information is protected by the Federal Confidentiality of Alcohol and Drug Abuse Patient Records regulations: The Federal rules restrict any use of the information to criminally investigate or prosecute any alcohol or drug abuse patient.[facility] the event this information is protected by the Federal Confidentiality of Alcohol and Drug Abuse Patient Records regulations: The Federal rules restrict any use of the information to criminally investigate or prosecute any alcohol or drug abuse patient.[facility] the event this information is protected by the Federal Confidentiality of Alcohol and Drug Abuse Patient Records regulations: The Federal rules restrict any use of the information to criminally investigate or prosecute any alcohol or drug abuse patient.[facility] the event this information is protected by the Federal Confidentiality of Alcohol and Drug Abuse Patient Records regulations: The Federal rules restrict any use of the information to criminally investigate or prosecute any alcohol or drug abuse patient.[facility] the event this information is protected by the Federal Confidentiality of Alcohol and Drug Abuse Patient Records regulations: The Federal rules restrict any use of the information to criminally investigate or prosecute any alcohol or drug abuse patient.[facility] Reason for Visit (unrecogniz ed section [...] Care Teams (unrecognized sec tion and content) Lamination Technician Relationship Specialty Start Date End Date Jose Braun MD [address] [facility] [place] [address] PCP - General Internal Medicine 10/30/15 Lamination Technician Relationship Specialty Start Date End Date Jose Braun MD [address] [place] [address] PCP - General Internal Medicine 10/30/15 Lamination Technician Relationship Specialty Start Date End Date Jose Braun MD [address] [place] [address] PCP - General Internal Medicine 10/30/15 Lamination Technician Relationship Specialty Start Date End Date Evita Jimenez, NURSE PRACTITIONER ADULT.AUDIOVISUAL AIDS TECHNICIAN [address] [place] [address] PCP - General Internal Medicine 01/09/22 Lamination Technician Relationship Specialty Start Date End Date Evita Jimenez, NURSE PRACTITIONER ADULT.AUDIOVISUAL AIDS TECHNICIAN [address] [place] [address] PCP - General Internal Medicine 01/09/22 Lamination Technician Relationship Specialty Start Date End Date Jose Braun MD [address] [place] [address] PCP - General Internal Medicine 01/29/22 Lamination Technician Relationship Specialty Start Date End Date Jose Braun MD [address] [facility] [place] [address] PCP - General Internal Medicine 01/29/22 Lamination Technician Relationship Specialty Start Date End Date Jose Braun MD [address] [place] [address] PCP - General Internal Medicine 01/29/22 INFORMATION [...] BE BASED ON THE PRIMARY CLINICAL RECORDS. [employer] provides no warranty or guarantee of the accuracy or completeness of information in this document.
[2023-06-19 20:27] VITALS: BMI 22.8
[2023-06-19 21:43] LABS: CRP < 2.90 mg/L (0.0-3.0); Free T3 1.9 pg/mL (2.18-3.98); T4 Free Direct 0.69 ng/dL (0.76-1.46)
[2023-06-19 21:47] LABS: Erythrocyte Sedimentation Rate 3 mm/hr (0-30)
[2023-06-19] MEDS: MELATONIN 10 MG TABLET PO (22:57)
[2023-06-19] MEDS: Atorvastatin Calcium 20 MG Tablet PO (22:57)
[2023-06-19] MEDS: QUEtiapine 25 MG Tablet PO (22:57)
[2023-06-19] MEDS: Insulin Lispro 100 UNIT/ML INSULN.PEN SC (23:00)
[2023-06-20 01:38] LABS: Bedside Glucose 299 mg/dL (74-106)
[2023-06-20 02:00] VITALS: BP 123/82; PULSE 68; RESP 16; TEMP 36.4; O2SAT 98
[2023-06-20] MEDS: Insulin Lispro 100 UNIT/ML INSULN.PEN SC ×4 (06:56→21:08)
[2023-06-20] MEDS: Levothyroxine 88 MCG Tablet PO (06:57)
[2023-06-20 07:17] LABS: Absolute Lymphocyte Count 1.77 X10^3/uL (0.83-4.51); Absolute Neutrophil Count 2.6 X10^3/uL (2.0-7.7); Basophil# 0.05 X10^3/uL; Eosinophil# 0.09 X10^3/uL; Eosinophils% 1.8 % (0-5); Hemoglobin 14.1 g/dL (12.0-15.0); Lymphocyte # 1.77 X10^3/ul (0.83-4.51); Lymphocyte % 35.5 % (19-41); Mean Corp Hgb Conc 33.6 g/dL (32-36); Mean Corpuscular Hgb 29.6 pg (27.0-32.0); Mean Corpuscular Volume 88.1 fL (81-99); Mean Platelet Vol. 9.7 fl (6.2-12.0); Monocyte# 0.51 X10^3/uL; Monocyte% 10.2 % (0-10); NRBC Flagged by Analyzer 0 % (0-5); Neutrophil # 2.55 X10^3/uL (2.7-7.7); Neutrophil % 51.1 % (47-70); Platelet Count 172 K/mm3 (150-450); RBC Distribution Width CV 12.9 % (11.6-14.6); Red Blood Count 4.77 M/mm3 (4.2-5.4)
[2023-06-20 08:02] LABS: ALB/GLOB Ratio 1.1 RATIO (0.9-2.4); AST(SGOT) 16 U/L (15-37); Alanine Aminotransfer ALT/SGPT 18 U/L (13-56); Albumin, Serum 3.1 g/dL (3.2-5.0); Alkaline Phosphatase 68 U/L (45-117); Anion Gap 6 (5-15); BUN 11 mg/dL (7-18); BUN/Creat Ratio 13.5 RATIO (10-20); Calcium,Total 9.1 mg/dL (8.5-10.1); Chloride 104 mmol/L (98-107); Creatinine, Serum 0.82 mg/dL (0.55-1.02); EST Glomerular Filtration Rate 71 mL/min (>60); Est Glom Filt Rate - Afr Amer 86 mL/min (>60); Estimated Creatinine Clearance 53.36 ml/min; Globulin 2.8 g/dL (2.2-4.2); Glucose 315 mg/dL (74-106); Potassium 3.8 mmol/L (3.5-5.1); Protein, Total 5.9 g/dL (6.4-8.2); Sodium Level 136 mmol/L (136-145)
[2023-06-20 08:38] LABS: Bedside Glucose 295 mg/dL (74-106)
[2023-06-20 09:16] VITALS: BP 120/68; PULSE 65; RESP 17; TEMP 36.4; O2SAT 97
[2023-06-20] MEDS: Enoxaparin 40 MG/0.4 ML Syringe SC (09:17)
[2023-06-20] MEDS: QUEtiapine 25 MG Tablet PO ×2 (11:22→21:10)
[2023-06-20 12:11] LABS: Bedside Glucose 352 mg/dL (74-106)
[2023-06-20 14:21] VITALS: BP 111/79; PULSE 108; RESP 17; TEMP 36.3; O2SAT 98
--- NOTE | 2023-06-20 15:46 | PN.HOSP_ITS ---
Reason for Visit Reason for Visit: Diagnoses Hypothyroidism, unspecified (06/19/23) Type 2 diabetes mellitus without complications (06/19/23) Altered mental status, unspecified (06/19/23) Subjective Subjective Patient admitted yesterday for worsening mentation with agitation in setting of suspected dementia. Patient seen at bedside this morning, present. Patient was sitting up comfortably in bed, in no acute distress. Patient was aw jay and alert, making appropriate eye contact with me. She was able to answer some questions appropriately but on further questioning, patient had several inconsistencies with her recent history. Patient is generally somewhat frustrated that she is in hospital and simply wants to go home. She denied any acute pain or discomfort at this time. notes that the patient looks better today than on admission, but she still has been telling him concerning things such as she does not want to live anymore. Objective Data Objective Data Vital Signs: Vital Signs Temp Pulse Resp BP Pulse Ox O2 Del Method 97.4 F L 108 H 17 111/79 98 Room Air 06/20/23 14:21 06/20/23 14:21 06/20/23 14:21 06/20/23 14:21 06/20/23 14:21 06/20/23 14:21 Oxygen Delivery Method Room Air Weight: 68.3 kg Body Mass Index (BMI) 22.8 Intake & Output: Intake and Output for Last 24 Hours 06/18/23 06/19/23 06/20/23 23:59 23:59 23:59 Intake Total 220 / 220 Output Total 0 / 0 Balance 220 / 220 Lab / Micro Data 06/20/23 06:14 06/20/23 06:14 Labs: Laboratory Results - last 24 hr 06/19/23 16:30: WBC 6.9, RBC 5.21, Hgb 15.4 H, Hct 45.7, MCV 87.7, MCH 29.6, MCHC 33.7, RDW Std Deviation 41.6, RDW Coeff of Saadia 12.9, Plt Count 205, MPV 9.4, Immature Gran % (Auto) 0.400, Neut % (Auto) 66.0, Lymph % (Auto) 24.3, [place] % (Auto) 7.0, Eos % (Auto) 1.3, Baso % (Auto) 1.0, Absolute Neuts (auto) 4.5, Absolute Lymphs (auto) 1.67, Nucleated RBC % 0, ESR 3, Sodium 134 L, Potassium 3.9, Chloride 101, Carbon Dioxide 27.0, Anion Gap 6, BUN 12, Creatinine 1.01, Estim Creat Clear Calc 43.32, Est GFR (MDRD) Af Amer 67, Est GFR (MDRD) Non-Af 56 L, BUN/Creatinine Ratio 11.9, Glucose 415 H, Hemoglobin A1c 13.0 H, Calcium 9.6, Troponin I High Sens 9, C-React Prot Ext Range < 2.90, Folate 19.10, TSH 18.30 H, Free T4 0.69 L, Free T3 pg/dL 1.9 L 06/19/23 16:33: POC Glucose 373 H 06/19/23 16:49: Urine Color Yellow, Urine Clarity Clear, Urine pH 6.0, Ur Specific [place] 1.015, Urine Protein Negative, Urine Glucose (UA) 1000 H, Urine Ketones 5 H, Urine Occult Blood Negative, Urine Nitrite Negative, Urine Bilirubin Negative, Urine Urobilinogen Normal, Ur Leukocyte Esterase Negative, Urine RBC 0 SEEN, Urine WBC 0 SEEN, Ur Squamous Epith Cells 0-5 SEEN, Urine Bacteria 0 SEEN, Urine Mucus 0 SEEN 06/19/23 22:55: POC Glucose 299 H 06/20/23 06:14: WBC 5.0, RBC 4.77, Hgb 14.1, Hct 42.0, MCV 88.1, MCH 29.6, MCHC 33.6, RDW Std Deviation 42.0, RDW Coeff of Saadia 12.9, Plt Count 172, MPV 9.7, Immature Gran % (Auto) 0.400, Neut % (Auto) 51.1, Lymph % (Auto) 35.5, [place] % (Auto) 10.2 H, Eos % (Auto) 1.8, Baso % (Auto) 1.0, Absolute Neuts (auto) 2.6, Absolute Lymphs (auto) 1.77, Nucleated RBC % 0, Sodium 136, Potassium 3.8, Chloride 104, Carbon Dioxide 26.0, Anion Gap 6, BUN 11, Creatinine 0.82, Estim Creat Clear Calc 53.36, Est GFR (MDRD) Af Amer 86, Est GFR (MDRD) Non-Af 71, BUN/Creatinine Ratio 13.5, Glucose 315 H, Calcium 9.1, Total Bilirubin 1.10 H, AST 16, ALT 18, Alkaline Phosphatase 68, Total Protein 5.9 L, Albumin 3.1 L, Globulin 2.8, Albumin/Globulin Ratio 1.1 06/20/23 06:54: POC Glucose 295 H 06/20/23 11:47: POC Glucose 352 H Micro: Microbiology 06/19/23 16:49 Mucosa - Nose SARS-CoV-2, Influenza & RSV (PCR) - Final Radiography Diagnostic Testing: Radiology Impression Brain CT 06/19/23 16:20 IMPRESSION: No acute intracranial abnormality. Chronic involutional and ischemic changes of the brain. Electronically Signed: Agustín Warren MD at 17:58 EST , Chest X-Ray 06/19/23 17:15 IMPRESSION: No acute radiographic abnormalities. Electronically Signed: Agustín Warren MD at 18:00 EST , Physical Exam Const alert, no apparent distress and average body habitus Constitutional Narrative: Elderly female, sitting up comfortably in bed, making appropriate eye contact but not answering several questions appropriately, no acute distress. Calm and cooperative on my exam. General Appearance: cooperative and comfortable HEENT normocephalic, head/scalp atraumatic, hearing grossly normal bilaterally, nasal mucous membranes and turbinates normal and moist oral mucous membranes Eyes PERRL, EOMs intact bilaterally and conjunctivae normal Neck full ROM, no lymphadenopathy and supple Lymph Lymphatic: no lymphadenopathy noted Chest inspection of chest normal Resp normal respiratory effort, normal air movement, no use of accessory muscles and clear to auscultation bilaterally Cardio regular rate, regular rhythm, no murmurs and peripheral pulses 2+ throughout GI normal to inspection, nondistended, normoactive bowel sounds, soft to palpation, non-tender and non-distended Back/Spine normal ROM Extremity normal to inspection, full ROM and no pedal edema Skin no rashes or lesions noted Neuro no focal motor deficits and no sensory deficits noted Speech: speech normal Psych affect normal Assessment & Plan Assessment/Plan (1) AMS (altered mental status): (2) Diabetes: (3) Hypothyroidism: PLAN: Plan Patient is an 82-year-old female who presented [facility] ED on 06/19/2023 with altered mentation. 1. Altered mentation in setting of suspected dementia with behavioral disturbances, improving; passive suicidal ideation Presented with reported worsening mentation from baseline per . Per , patient has had worsening memory loss with some behavioral disturbances over the past few years, but has refused any geriatric or psychiatric evaluation to this point. Suspect uncontrolled hypothyroidism and diabetes contributing to patient's reported acute decline over the past few days. CT head negative on admit. UA noninfectious. A1c 13.0%, TSH elevated on admit as noted below. ESR and CRP negative. B12 and syphilis pending. ? MRI brain without contrast ordered for tomorrow. Continue Seroquel 25 mg 3 times daily. Treating diabetes and hypothyroidism as noted below. Case management consulted; potentially interested and either assisted living or memory care unit for patient if she was to qualify. Notably, discussed with nursing staff and patient's that patient does not have capacity, and if patient tried to leave AMA we would place a medical hold at that time. 2. Uncontrolled hypothyroidism ? TSH 18.3, free T4 0.69, free T3 1.9 on admit. Presumed secondary to intermit tent nonadherence to home Synthroid. Hemodynamically stable, no evidence of myxedema coma. Restarted home Synthroid 88 mcg daily. Recommend repeat TSH/T4 check in 6 to 8 weeks. 3. Uncontrolled type 2 diabetes mellitus ? Glucose 415 on admit. A1c 13.0%. Home regimen of metformin 1000 mg twice daily, patient reports nonadherence. Started on Lantus 20 units at night, Humalog 7 units with meals plus sliding scale insulin, adjust as needed. 4. Hyperlipidemia ? Continue home statin. DVT prophylaxis: Lovenox CODE STATUS: Full code, unverified Expected disposition: TBD Total clinical time spent by myself addressing the patient's medical issues, reviewing all the data, and collaborating with patient's care team: 35 minutes. Charges/Coding Visit Charges Inpatient E&M: 96420 Subs Hosp L2
[2023-06-20 16:50] LABS: Bedside Glucose 224 mg/dL (74-106)
[2023-06-20] MEDS: Insulin Lispro 100 UNIT/ML INSULN.PEN 7 UNIT SC (17:54)
[2023-06-20 20:30] VITALS: BP 135/77; PULSE 107; RESP 16; TEMP 36.7; O2SAT 100
[2023-06-20] MEDS: Insulin Glargine-YFGN 100 UNIT/ML Pen 20 UNIT SC (21:09)
[2023-06-20] MEDS: MELATONIN 10 MG TABLET PO (21:10)
[2023-06-20] MEDS: Atorvastatin Calcium 20 MG Tablet PO (21:10)
[2023-06-20 21:19] LABS: Bedside Glucose 171 mg/dL (74-106)
[2023-06-21 02:14] VITALS: BP 128/78; PULSE 88; RESP 16; TEMP 36.8; O2SAT 99
[2023-06-21] MEDS: QUEtiapine 25 MG Tablet PO ×2 (05:02→15:25)
[2023-06-21] MEDS: Levothyroxine 88 MCG Tablet PO (05:02)
[2023-06-21 08:04] VITALS: BP 140/88; PULSE 74; RESP 17; TEMP 36.4; O2SAT 99
[2023-06-21] MEDS: Enoxaparin 40 MG/0.4 ML Syringe SC (08:07)
[2023-06-21] MEDS: Insulin Lispro 100 UNIT/ML INSULN.PEN SC ×3 (08:07→20:13)
[2023-06-21] MEDS: Insulin Lispro 100 UNIT/ML INSULN.PEN 7 UNIT SC ×3 (08:07→16:49)
[2023-06-21 08:53] LABS: Syphilis Antibodies Non-reactive; Vitamin B12 211 pg/mL (211-911)
--- NOTE | 2023-06-21 09:00 | MRI_ITS ---
EXAM: MR HEAD WITHOUT INTRAVENOUS CONTRAST CLINICAL INDICATION: dementia w/ behavior disturbance, r/o struct etiology TECHNIQUE: Multiplanar and multisequence MR images of the brain were obtained without intravenous contrast. COMPARISON: No relevant prior studies available. FINDINGS: BRAIN AND EXTRA-AXIAL SPACES: Increased T2 signal intensity within the periventricular white matter suggestive of chronic microvascular change. Prominence of the cortical sulci and ventricles related to volume loss change. No intra- or extra-axial hemorrhage. No evidence of acute infarct. No intracranial mass or mass effect. There is preservation of the lala/white matter interface. Posterior fossa structures are unremarkable. Basal cisterns are patent. SELLA: Normal. Normal sella turcica, pituitary gland, infundibular stalk, optic chiasm and hypothalamus. AUDITORY SYSTEM: Normal. The internal auditory canals are patent. BONES/JOINTS: Intact calvarium. SINUSES: Unremarkable as visualized. Clear. MASTOID AIR CELLS: Unremarkable as visualized. Clear. ORBITS: Unremarkable as visualized. Both globes, extraocular muscles, optic nerves and retrobulbar fat appear unremarkable. VASCULATURE: Unremarkable as visualized. Normal flow voids in the major intracranial circulation. MRI/Brain without Contrast IMPRESSION: 1. No acute intracranial abnormality. 2. Senescent changes. Electronically Signed: Griffin Diaz MD at 12:00 EST ,
[2023-06-21 09:10] LABS: Bedside Glucose 212 mg/dL (74-106)
[2023-06-21 12:08] LABS: Bedside Glucose 148 mg/dL (74-106)
--- NOTE | 2023-06-21 13:12 | CASEMGMT ---
A consult was placed for crisis to see patient. SW faxed referral to crisis and also called in referral. Laina Greer BUSINESS LAW TEACHER FAHAD
--- NOTE | 2023-06-21 13:27 | PN.HOSP_ITS ---
Reason for Visit Reason for Visit: Diagnoses Hypothyroidism, unspecified (06/19/23) Type 2 diabetes mellitus without complications (06/19/23) Altered mental status, unspecified (06/19/23) Subjective Subjective Told by nursing staff that patient hardly slept overnight, was pacing the halls and generally somewhat agitated. Patient seen at bedside this morning, present. Patient was sitting comfortably in bed and appeared similar to noreen haines. When asked if she slept overnight, the patient stated she did not feel tired because she had taken a nap during the day. noted that the patient had tried to call her multiple times. Patient did not remember trying to call her . Patient otherwise denied any acute pain or discomfort this morning. No other acute concerns at this time. Objective Data Objective Data Vital Signs: Vital Signs Temp Pulse Resp BP Pulse Ox O2 Del Method 97.6 F L 74 17 140/88 H 99 Room Air 06/21/23 08:04 06/21/23 08:04 06/21/23 08:04 06/21/23 08:04 06/21/23 08:04 06/21/23 09:08 Oxygen Delivery Method Room Air Weight: 68.3 kg Body Mass Index (BMI) 22.8 Intake & Output: Intake and Output for Last 24 Hours 06/19/23 06/20/23 06/21/23 23:59 23:59 23:59 Intake Total 220 / 620 700 / 700 Output Total 0 / 0 Balance 220 / 620 700 / 700 Lab / Micro Data 06/20/23 06:14 06/20/23 06:14 Labs: Laboratory Results - last 24 hr 06/20/23 06:14: Vitamin B12 211, Syphilis Total Ab Non-reactive 06/20/23 16:21: POC Glucose 224 H 06/20/23 20:55: POC Glucose 171 H 06/21/23 08:02: POC Glucose 212 H 06/21/23 11:47: POC Glucose 148 H Micro: Microbiology 06/19/23 16:49 Mucosa - Nose SARS-CoV-2, Influenza & RSV (PCR) - Final Radiography Diagnostic Testing: Radiology Impression Brain MRI 06/21/23 09:00 IMPRESSION: 1. No acute intracranial abnormality. 2. Senescent changes. Electronically Signed: Griffin Diaz MD at 12:00 EST , Physical Exam Const alert, no apparent distress and average body habitus Constitutional Narrative: Elderly female, sitting up comfortably in bed, making appropriate eye contact but not answering several questions appropriately, no acute distress. Calm and cooperative on my exam. General Appearance: cooperative and comfortable HEENT normocephalic, head/scalp atraumatic, hearing grossly normal bilaterally, nasal mucous membranes and turbinates normal and moist oral mucous membranes Eyes PERRL, EOMs intact bilaterally and conjunctivae normal Neck full ROM, no lymphadenopathy and supple Lymph Lymphatic: no lymphadenopathy noted Chest inspection of chest normal Resp normal respiratory effort, normal air movement, no use of accessory muscles and clear to auscultation bilaterally Cardio regular rate, regular rhythm, no murmurs and peripheral pulses 2+ throughout GI normal to inspection, nondistended, normoactive bowel sounds, soft to palpation, non-tender and non-distended Back/Spine normal ROM Extremity normal to inspection, full ROM and no pedal edema Skin no rashes or lesions noted Neuro no focal motor deficits and no sensory deficits noted Speech: speech normal Psych affect normal Assessment & Plan Assessment/Plan (1) AMS (altered mental status): (2) Diabetes: (3) Hypothyroidism: PLAN: Plan Patient is an 82-year-old female who presented [facility] ED on 06/19/2023 with altered mentation. 1. Altered mentation in setting of suspected dementia with behavioral disturbances, improving; passive suicidal ideation Presented with reported worsening mentation from baseline per . Per , patient has had worsening memory loss with some behavioral disturbances over the past few years, but has refused any geriatric or psychiatric evaluation to this point. Suspect uncontrolled hypothyroidism and diabetes contributing to patient's reported acute decline over the past few days. CT head negative on admit. UA noninfectious. A1c 13.0%, TSH elevated on admit as noted below. ESR and CRP negative. B12 low normal. Syphilis negative. MRI brain without contrast showed senescent changes, no acute findings. ? Case management following. Patient medically stable for discharge to inpatient psychiatric facility for martha-psych evaluation on 06/21. [place] slip placed. Crisis consulted. Will continue Seroquel 25 mg 3 times daily and add risperidone 0.5 mg at night on 2/12. Treating diabetes and hypothyroidism as n oted below. 2. Uncontrolled hypothyroidism ? TSH 18.3, free T4 0.69, free T3 1.9 on admit. Presumed secondary to intermittent nonadherence to home Synthroid. Hemodynamically stable, no evidence of myxedema coma. Restarted home Synthroid 88 mcg daily on admission. Recommend repeat TSH/T4 check in 6 to 8 weeks. 3. Uncontrolled type 2 diabetes mellitus ? Glucose 415 on admit. A1c 13.0%. Home regimen of metformin 1000 mg twice daily, patient reports nonadherence. Started on Lantus 20 units at night, Humalog 7 units with meals plus sliding scale insulin, adjust as needed. 4. Hyperlipidemia ? Continue home statin. DVT prophylaxis: Lovenox CODE STATUS: Full code, unverified Expected disposition: Inpatient psychiatry, medically stable for discharge on 06/21, awaiting placement. Total clinical time spent by myself addressing the patient's medical issues, reviewing all the data, and collaborating with patient's care team: 35 minutes. Charges/Coding Visit Charges Inpatient E&M: 49332 Subs Hosp L2
--- NOTE | 2023-06-21 14:11 | CASEMGMT ---
LEIDY met with patient's Robert outside of the room. LEIDY introduced self and role at [facility]. LEIDY provided Robert with a list of assisted living and custodial facilities in the area. LEIDY also marked which facilities have memory care. LEIDY also gave Robert some information on [facility] as SW happened to have some of their information. Robert told SW an approximate amount of money they have in the bank and neither would qualify for Medicaid. LEIDY suggested he start by calling the facilities and letting them know his situation and what he is looking for. LEIDY let Robert know that a street worker from [facility] will be coming in to talk with patient and they will talk with him. Laina Greer COPY SUPERVISOR FAHAD
--- NOTE | 2023-06-21 14:32 | PN.HOSP_ITS ---
Hospitalist Note Patient admitted on 06/19 for altered mentation in the setting of suspected chronic progressive dementia. Found to have poorly controlled type 2 diabetes mellitus and poorly controlled hypothyroidism. Both are now being treated appropriately. MRI brain was done on the morning of 06/21 and showed senescent changes, otherwise no acute intracranial abnormalities. Patient's mentation has improved but she has significant memory loss issues and has had intermittent behavioral disturbances during this hospitalization. At this time, patient is m edically stable for transfer to an inpatient psychiatry unit for further management.
--- NOTE | 2023-06-21 14:35 | CASEMGMT ---
Crisis is at [facility] to see patient and patient's . Laina Greer CNC APPLICATIONS ENGINEER INSOLE TACKER
[2023-06-21 15:23] VITALS: BP 141/90; PULSE 95; RESP 17; TEMP 36.6; O2SAT 97
--- NOTE | 2023-06-21 16:48 | DCINST_ITS ---
Discharge Instructions Diet Discharge Diet: No restrictions Activity Discharge Activity: No Restrictions Weight Bearing Status: Full weight bearing Follow Up Care Test Results: Test results from this visit will be discussed in further detail at your follow- up appointment, if applicable. Discharge Plan Admission Admit Date/Time: 06/19/23 19:25 Primary Reason for Your Visit: altered mentation, progressive dementia Attending Provider: Teddy Turpin Primary Care Provider: Evita Jimenez NP Consulting Providers: Viri Mcclelland Discharge Orders/Prescriptions Prescriptions: New insulin glargine-yfgn 100 unit/mL (3 mL) Insulin Pen 20 unit subcut QHS Qty: 0 0RF insulin lispro [Humalog KwikPen Insulin] 100 unit/mL Insulin Pen 7 unit subcut TIDAC Qty: 0 0RF risperidone 0.5 mg Tablet 0.5 mg PO QHS Qty: 0 0RF Continued simvastatin 40 MG tablet 40 mg PO QHS levothyroxine 88 MCG tablet 88 mcg PO DAILY Discontinued metformin 1,000 MG tablet 1,000 mg PO BIDCM Referrals / Follow Up: Evita Jimenez NP, MANAGER MOBILE-C [Primary Care Provider] - Disposition Disposition (needs filled in before D/C Order can be placed): Psychiatric Hospital or Unit
--- NOTE | 2023-06-21 16:51 | PCM.DC.SUM ---
Providers Date of Admission: 06/19/23 Date of Discharge: 06/21/23 Primary Care Physician: BECKY Nash Reason For Visit: AMS Diagnosis Discharge Diagnosis (1) AMS (altered mental status): Status: Acute Code(s): R41.82 - Altered mental status, unspecified (2) Diabetes: Status: Acute Code(s): E11.9 - Type 2 diabetes mellitus without complications (3) Hypothyroidism: Status: Acute Code(s): E03.9 - Hypothyroidism, unspecified Medications at Discharge Home Medications levothyroxine 88 mcg tablet 88 mcg PO DAILY thyroid 06/25/18 simvastatin 40 mg tablet 40 mg PO QHS cholesterol 06/25/18 insulin glargine-yfgn 100 unit/mL (3 mL) subcutaneous pen 20 unit (0.2 mL) subcut QHS #0 mL 06/21/23 insulin lispro 100 unit/mL subcutaneous pen (Humalog KwikPen (U-100) Insulin) 7 unit (0.07 mL) subcut TIDAC #0 mL 06/21/23 risperidone 0.5 mg tablet 0.5 mg PO QHS #0 tabs 06/21/23 Hospital Course Operations None Procedures EKG and - (CT brain w/o contrast, MRI brain w/o contrast, CXR) Summary of Care Provided Minutes Spent on Discharge: 35 Hospital Course: Patient is an 82-year-old female who presented [facility] ED on 06/19/2023 with altered mentation. Hospital course as noted below. Patient was discharged to an inpatient geriatric psychiatry unit in stable condition on 06/21. 1. Altered mentation in setting of suspected dementia with behavioral disturbances, improved; passive suicidal ideation Presented with reported worsening mentation from baseline per . Per , patient has had worsening memory loss with some behavioral disturbances over the past few years, but has refused any geriatric or psychiatric evaluation to this point. Suspect uncontrolled hypothyroidism and diabetes contributing to patient's reported acute decline over the past few days. CT head negative on admit. UA noninfectious. A1c 13.0%, TSH elevated on admit as noted below. ESR and CRP negative. B12 low normal. Syphilis negative. MRI brain without contrast showed senescent changes, no acute findings. ? Case management followed. Crisis followed. Susan Moore slip placed. Patient discharged to inpatient psychiatric facility for martha-psych evaluation on 06/21. Of note, patient was trialed on Seroquel 25 mg 3 times daily during hospitalization, had minimal improvement in symptoms. Seroquel discontinued, risperidone 0.5 mg at night started on day of discharge. Treated diabetes and hypothyroidism as noted below. 2. Uncontrolled hypothyroidism ? TSH 18.3, free T4 0.69, free T3 1.9 on admit. Presumed secondary to intermittent nonadherence to home Synthroid. Hemodynamically stable, no evidence of myxedema coma. Restarted home Synthroid 88 mcg daily on admission. Recommend repeat TSH/T4 check in 6 to 8 weeks. 3. Uncontrolled type 2 diabetes mellitus ? Glucose 415 on admit. A1c 13.0%. Home regimen of metformin 1000 mg twice daily, patient reports nonadherence. Started on Lantus 20 units at night, Humalog 7 units with meals plus sliding scale insulin during hospitalization, will continue this regimen on discharge. 4. Hyperlipidemia ? Continue home statin. Total clinical time spent by myself addressing the patient's discharge needs: 35 minutes. Physical Exam Const alert, no apparent distress and average body habitus Constitutional Narrative: Elderly female, sitting up comfortably in bed, making appropriate eye contact but not answering several questions appropriately, no acute distress. Calm and cooperative on my exam. General Appearance: cooperative and comfortable HEENT normocephalic, head/scalp atraumatic, hearing grossly normal bilaterally, nasal mucous membranes and turbinates normal and moist oral mucous membranes Eyes PERRL, EOMs intact bilaterally and conjunctivae normal Neck full ROM, no lymphadenopathy and supple Lymph Lymphatic: no lymphadenopathy noted Chest inspection of chest normal Resp normal respiratory effort, normal air movement, no use of accessory muscles and clear to auscultation bilaterally Cardio regular rate, regular rhythm, no murmurs and peripheral pulses 2+ throughout GI normal to inspection, nondistended, normoactive bowel sounds, soft to palpation, non-tender and non-distended Back/Spine normal ROM Extremity normal to inspection, full ROM and no pedal edema Skin no rashes or lesions noted Neuro no focal motor deficits and no sensory deficits noted Speech: speech normal Psych affect normal Weight / BMI Weight Weight: 68.3 kg Body Mass Index (BMI) 22.8 ABG / Lab / Microbiology Data 06/20/23 06:14 06/20/23 06:14 Laboratory: Laboratory Results - last 24 hr 06/20/23 06:14: Vitamin B12 211, Syphilis Total Ab Non-reactive 06/20/23 20:55: POC Glucose 171 H 06/21/23 08:02: POC Glucose 212 H 06/21/23 11:47: POC Glucose 148 H Microbiology: Microbiology 06/19/23 16:49 Mucosa - Nose SARS-CoV-2, Influenza & RSV (PCR) - Final Radiography Diagnostic Testing: Radiology Impression Brain MRI 06/21/23 09:00 IMPRESSION: 1. No acute intracranial abnormality. 2. Senescent changes. Electronically Signed: Griffin Diaz MD at 12:00 EST , D/C Instructions Discharge Diet: No restrictions Weight Bearing Status: Full weight bearing Meaningful Use Info Meaningful Use Diagnoses (Choose all that apply): None applicable Discharge Plan Admission Admit Date/Time: 06/19/23 19:25 Primary Reason for Your Visit: altered mentation, progressive dementia Attending Provider: Teddy Turpin Primary Care Provider: Evita Jimenez NP Consulting Providers: Viri Mcclelland Instructions Additional Instructions / Restrictions: Pt is going to [facility] Discharge Orders/Prescriptions Prescriptions: New insulin glargine-yfgn 100 unit/mL (3 mL) Insulin Pen 20 unit subcut QHS Qty: 0 0RF insulin lispro [Humalog KwikPen Insulin] 100 unit/mL Insulin Pen 7 unit subcut TIDAC Qty: 0 0RF risperidone 0.5 mg Tablet 0.5 mg PO QHS Qty: 0 0RF Continued simvastatin 40 MG tablet 40 mg PO QHS levothyroxine 88 MCG tablet 88 mcg PO DAILY Discontinued metformin 1,000 MG tablet 1,000 mg PO BIDCM Referrals / Follow Up: Evita Jimenez FELLED SEAM OPERATOR, FELLED SEAM OPERATOR-C [Primary Care Provider] - Disposition Disposition (needs filled in before D/C Order can be placed): Psychiatric Hospital or Unit Charges/Coding Visit Charges Inpatient E&M: 88200 Disch Hosp >30min
--- NOTE | 2023-06-21 17:02 | CASEMGMT ---
Care Mgmt Unable to complete JI today. Unable to contact and he has not been in room when this communications writer was able to check. Will attempt again tomorrow. Jazmin Mcgarry, Discharge Planning Asst.
[2023-06-21] MEDS: RisperiDONE 0.5 MG Tablet PO (20:05)
[2023-06-21] MEDS: Atorvastatin Calcium 20 MG Tablet PO (20:05)
[2023-06-21] MEDS: Insulin Glargine-YFGN 100 UNIT/ML Pen 20 UNIT SC (20:12)
[2023-06-21 20:17] VITALS: BP 164/99; PULSE 83; RESP 18; TEMP 36.8; O2SAT 96
[2023-06-21 20:54] LABS: Bedside Glucose 181 mg/dL (74-106)
[2023-06-21 21:38] LABS: Bedside Glucose 214 mg/dL (74-106)
[2023-06-22 06:50] VITALS: PULSE 75; RESP 18; TEMP 36.4; O2SAT 94
[2023-06-22] MEDS: Levothyroxine 88 MCG Tablet PO (06:57)
[2023-06-22 07:11] LABS: Bedside Glucose 148 mg/dL (74-106)
[2023-06-22] MEDS: Insulin Lispro 100 UNIT/ML INSULN.PEN 7 UNIT SC (08:06)
[2023-06-22] MEDS: Enoxaparin 40 MG/0.4 ML Syringe SC (08:06)
[2023-06-22] MEDS: Insulin Lispro 100 UNIT/ML INSULN.PEN SC (08:07)
[2023-06-22 08:33] LABS: Amphetamine Urine VISTA NEGATIVE (<1000 ng/mL); Barbiturate Urine VISTA NEGATIVE (< 200 ng/mL); Benzodiazepine Urine VISTA NEGATIVE (< 200 ng/mL); Cocaine Urine VISTA NEGATIVE (< 300 ng/mL); Ecstacy Urine VISTA NEGATIVE (< 500 ng/mL); Methadone Urine VISTA NEGATIVE (< 300 ng/mL); PCP Urine VISTA NEGATIVE (< 25 ng/mL); THC Urine VISTA NEGATIVE (< 50 ng/mL); Vista UDS pH Range 5
[2023-06-22 09:07] VITALS: BP 137/87; PULSE 109; RESP 17; TEMP 36.4; O2SAT 98
[2023-06-22 09:30] LABS: Bedside Glucose 177 mg/dL (74-106)
--- NOTE | 2023-06-22 10:01 | PHA.DC.MR.R ---
Pharmacy [place] Med Reconciliation Pharmacy Service has performed discharge medication reconciliation for this patient. The patient's discharge medication list was reviewed for discrepancies and discrepancies were resolved. Medications at Discharge Home Medications levothyroxine 88 mcg tablet 88 mcg PO DAILY thyroid 06/25/18 simvastatin 40 mg tablet 40 mg PO QHS cholesterol 06/25/18 insulin glargine-yfgn 100 unit/mL (3 mL) subcutaneous pen 20 unit (0.2 mL) subcut QHS #0 mL 06/21/23 insulin lispro 100 unit/mL subcutaneous pen (Humalog KwikPen (U-100) Insulin) 7 unit (0.07 mL) subcut TIDAC #0 mL 06/21/23 risperidone 0.5 mg tablet 0.5 mg PO QHS #0 tabs 06/21/23
--- NOTE | 2023-06-22 10:11 | NURSING ---
Report called to bedside RN at [facility], spoke to Leyda WEAVER
== END 2023-06-22 09:52 ==
LOC: ED 17:06 → PCU 20:02
PROVIDERS: Internal Medicine; Admitting Provider Internal Medicine; Emergency Provider Student in an Organized Health Care Education/Training Program; PCP Clinical Nurse Specialist; Visit Provider Hospitalist
DX: R41.82 Altered mental status, unspecified (principal); E11.65 Type 2 diabetes mellitus with hyperglycemia; E78.5 Hyperlipidemia, unspecified; Z86.16 Personal history of COVID-19; E03.9 Hypothyroidism, unspecified; Z79.899 Other long term (current) drug therapy; Z79.890 Hormone replacement therapy; Z79.84 Long term (current) use of oral hypoglycemic drugs
CPT/HCPCS: 36415; 70450; 70551; 71045; 80048; 80053; 80307; 81001; 82607; 82746; 82962; 83036; 84439; 84443; 84481; 84484; 85025; 85652; 86140; 86780; 87631; 93005; 96372; 97802; 99221; 99284; A4216; G0378

== ENCOUNTER 2023-09-24 13:25 | Emergency (ER) | payer MEDICARE, OTHER, SELFPAY ==
[2023-09-24 13:29] VITALS: BP 129/58; PULSE 60; RESP 18; TEMP 36.4; O2SAT 99; BMI 22.7
--- NOTE | 2023-09-24 14:07 | EKG12_ITS ---
Test Reason : Blood Pressure : / mmHG Vent. Rate : 061 BPM Atrial Rate : 061 BPM P-R Int : 190 ms QRS Dur : 068 ms QT Int : 448 ms P-R-T Axes : 048 -24 040 degrees QTc Int : 450 ms Normal sinus rhythm Low voltage QRS Borderline ECG Confirmed by Jude Gonzalez ([id number]), makeup editor JASS GILLIAM ([id number]) on 09/27/2023 8:49:26 AM Referred By: Confirmed By:Jude Gonzalez
--- NOTE | 2023-09-24 14:28 | RAD_ITS ---
STUDY: X-RAY CHEST REASON FOR EXAM: Female, 82 years old. Weakness TECHNIQUE: Single AP portable view of the chest. COMPARISON: Comparison is made with prior study June 19, 2023. FINDINGS: EKG electrodes are seen. Stable increased markings at the lung bases slightly more prominent on the left side suggestive of possible scarring. There is no demonstrated pleural abnormality. Normal size heart. Normal mediastinum and yolanda. Normal visualized pulmonary arteries. There is atherosclerotic tortuosity of the aortic arch and descending thoracic aorta. There are diffuse degenerative changes of the visualized thoracic spine. Normal visualized ribs, clavicles, and shoulders. There is no demonstrated abnormality of the visualized soft tissue structures of the upper abdomen. RAD/Chest 1 View (Portable) IMPRESSION: Stable examination. Electronically Signed: Artis Cosme MD at 14:50 EDT ,
[2023-09-24] MEDS: 0.9% Normal Saline (1000mL) 1,000 ML 1000 ML IV (14:29)
[2023-09-24 14:52] LABS: Absolute Lymphocyte Count 0.86 X10^3/uL (0.83-4.51); Absolute Neutrophil Count 6.2 X10^3/uL (2.0-7.7); Basophil# 0.05 X10^3/uL; Basophil% 0.6 % (0-1); Eosinophil# 0.05 X10^3/uL; Eosinophils% 0.6 % (0-5); Hematocrit 40.9 % (37-47); Hemoglobin 13.4 g/dL (12.0-15.0); Lymphocyte # 0.86 X10^3/ul (0.83-4.51); Mean Corp Hgb Conc 32.8 g/dL (32-36); Mean Corpuscular Hgb 28.9 pg (27.0-32.0); Mean Corpuscular Volume 88.1 fL (81-99); Mean Platelet Vol. 9.4 fl (6.2-12.0); Monocyte# 0.61 X10^3/uL; Monocyte% 7.8 % (0-10); NRBC Flagged by Analyzer 0 % (0-5); Neutrophil % 79.5 % (47-70); Platelet Count 208 K/mm3 (150-450); RBC Distribution Width CV 13.3 % (11.6-14.6); Red Blood Count 4.64 M/mm3 (4.2-5.4); White Blood Count 7.8 K/mm3 (4.4-11.0)
--- NOTE | 2023-09-24 14:56 | EDS_ITS ---
HPI History of Present Illness Chief Complaint: Overdose Narrative Narrative: Right 82-year-old female presenting with accidental ingestion. She took her morning dose of donepezil grams, metformin 500 mg, levothyroxine 126 mcg but accidentally took the nighttime doses of her medications and took Seroquel 50 mg, metformin 500 mg, simvastatin 40 mg which is her nighttime dose and 3 melatonin Gummies which are 3 mg each. She also took Seroquel 50 mg which she takes at nighttime. Patient took these medications at 11 and about 12 she started vomiting. called EMS. He did not call poison control. [facility] Medical History Depression COVID-19 COVID Syncope Diabetes Hypothyroidism Home Medications ?Medication ?Instructions ?Recorded ?Last Taken ?Type levothyroxine 88 mcg tablet 88 mcg PO DAILY thyroid 06/25/18 Unknown History simvastatin 40 mg tablet 40 mg PO QHS cholesterol 06/25/18 Unknown History insulin glargine-yfgn 100 unit/mL 20 unit (0.2 mL) subcut QHS #0 mL 06/21/23 Unknown Rx (3 mL) subcutaneous pen insulin lispro 100 unit/mL 7 unit (0.07 mL) subcut TIDAC #0 mL 06/21/23 Unknown Rx subcutaneous pen (Humalog KwikPen (U-100) Insulin) risperidone 0.5 mg tablet 0.5 mg PO QHS #0 tabs 06/21/23 Unknown Rx Allergy/AdvReac Type Severity Reaction Status Date / Time No Known Allergies Allergy Verified 06/19/23 15:55 Surgical History History of cholecystectomy History of hysterectomy Social History Smoking Status: Never smoker ROS ROS ED Constitutional Constitutional ED: Denies chills, fever(s) or sweats Eyes Eyes: Denies blurry vision or change in vision ENT ENT ED: Denies ear pain or sore throat Cardiovascular Cardiovascular: Denies chest pain, palpitations or racing heartbeat Respiratory/Chest Respiratory/Chest: Denies cough, dyspnea or sputum Gastrointestinal Gastrointestinal: Reports nausea and vomiting; Denies abdominal pain, con stipation or diarrhea Genitourinary Genitourinary ED: Denies dysuria, hematuria or urinary frequency Musculoskeletal Musculoskeletal: Denies arthralgias, myalgias or neck pain Integumentary Denies abscess, Abrasions or rash Neurologic Neurologic: Denies headache(s), paresthesias or weakness Psychiatric Psychiatric: Denies anxiety, depression, suicidal ideation or suicidal thoughts Endocrine Endocrinology: Denies polydipsia or polyuria EXAM Physical Exam Const Vital Signs: 09/24/23 13:29 09/24/23 15:00 Temperature 97.5 F L Temperature Source Oral Pulse Rate 60 64 Respiratory Rate 18 17 Blood Pressure 129/58 H 105/90 H Blood Pressure Mean 81 95 Pulse Ox 99 100 Oxygen Delivery Method Room Air Room Air Positive well nourished General Appearance ED: Negative for pallor HEENT Reports moist mucous membranes Eyes PERRL and EOMs intact bilaterally Neck no lymphadenopathy Chest Wall inspection of chest normal Resp normal respiratory effort and clear to auscultation bilaterally Cardio regular rate and regular rhythm GI normal to inspection, nondistended, normoactive bowel sounds Neuro oriented x3 and CN's II-XII intact bilaterally Sensorium / Orientation: alert Motor Exam: strength 5/5 throughout Psych mental status grossly normal Skin no rashes or lesions noted General Skin Exam: Negative for jaundice or pallor MDM MDM MDM Narrative Medical decision making narrative: Patient was discussed with poison control and they did not feel there is any toxic levels of any of the medications and recommended just monitoring for short while make sure she has acute vomiting. I gave the patient's number to poison control so they can follow-up with her in later. Will obtain basic lab work and an EKG and continue to monitor. CBC shows normal white blood cell count of 7.8. Hemoglobin 13.4. Platelets are normal at 208. Renal function and electrolytes normal. High-sensitivity troponin is 4. EKG on my interpretation shows sinus rhythm 61 bpm without signs change or ectopy. Chest x-ray negative for acute findings. Radiology interprets this and agrees. At this point I feel this patient is stable for discharge. She was able to safely ambulate to the restroom. Discussed all findings with her . Recommended that he does not leave her medications out where she can get to them. Impression: 1. Accidental ingestion Lab Data Attestation: I reviewed the patient's lab results. Labs: Laboratory Results - last 24 hr 09/24/23 14:31 WBC 7.8 RBC 4.64 Hgb 13.4 Hct 40.9 MCV 88.1 MCH 28.9 MCHC 32.8 RDW Std Deviation 43.0 RDW Coeff of Saadia 13.3 Plt Count 208 MPV 9.4 Immature Gran % (Auto) 0.500 Neut % (Auto) 79.5 H Lymph % (Auto) 11.0 L Sully % (Auto) 7.8 Eos % (Auto) 0.6 Baso % (Auto) 0.6 Absolute Neuts (auto) 6.2 Absolute Lymphs (auto) 0.86 Nucleated RBC % 0 Sodium 136 Potassium 4.4 Chloride 103 Carbon Dioxide 27.0 Anion Gap 6 BUN 8 Creatinine 0.74 Estim Creat Clear Calc 56.66 Est GFR (MDRD) Af Amer 96 Est GFR (MDRD) Non-Af 79 BUN/Creatinine Ratio 10.8 Glucose 218 H Calcium 9.7 Troponin I High Sens 4 Radiography Diagnostic Testing: Clinical Impression(s) from Imaging Studies Chest X-Ray 09/24/23 14:28 IMPRESSION: Stable examination. Electronically Signed: Artis Cosme MD at 14:50 EDT , Discharge Plan Triage Chief Complaint: Overdose ED Provider: Artur Gallardo Dx/Rx/DC Orders Instructions: ED Accidental Ingestion ... Prescriptions: No Action simvastatin 40 MG tablet 40 mg PO QHS levothyroxine 88 MCG tablet 88 mcg PO DAILY insulin glargine-yfgn 100 unit/mL (3 mL) Insulin Pen 20 unit subcut QHS Qty: 0 0RF insulin lispro [Humalog KwikPen Insulin] 100 unit/mL Insulin Pen 7 unit subcut TIDAC Qty: 0 0RF risperidone 0.5 mg Tablet 0.5 mg PO QHS Qty: 0 0RF Primary Care Provider: Ioana Donis NP Referrals: Ioana Donis BRICK OFFBEARER, BRICK OFFBEARER-C [Primary Care Provider] - Print Language: Iranian Disposition Disposition: Home, Self Care
[2023-09-24 15:00] VITALS: BP 105/90; PULSE 64; RESP 17; O2SAT 100
[2023-09-24 15:03] LABS: Anion Gap 6 (5-15); BUN 8 mg/dL (7-18); BUN/Creat Ratio 10.8 RATIO (10-20); Calcium,Total 9.7 mg/dL (8.5-10.1); Chloride 103 mmol/L (98-107); Creatinine, Serum 0.74 mg/dL (0.55-1.02); EST Glomerular Filtration Rate 79 mL/min (>60); Est Glom Filt Rate - Afr Amer 96 mL/min (>60); Estimated Creatinine Clearance 56.66 ml/min; Glucose 218 mg/dL (74-106); Potassium 4.4 mmol/L (3.5-5.1); Sodium Level 136 mmol/L (136-145); Troponin-I HS 4 pg/mL (3.0-54.0)
[2023-09-24 16:43] VITALS: BP 105/90; PULSE 64; RESP 17; TEMP 36.1; O2SAT 100
== END 2023-09-24 16:43 | disposition home or self-care (01) ==
PROVIDERS: Emergency Provider Student in an Organized Health Care Education/Training Program; PCP Internal Medicine; Visit Provider Student in an Organized Health Care Education/Training Program
DX: T50.911A Poisoning by multiple unspecified drugs, medicaments and biological substances, accidental (unintentional), initial encounter (principal); E11.9 Type 2 diabetes mellitus without complications; Z79.4 Long term (current) use of insulin; Z79.84 Long term (current) use of oral hypoglycemic drugs; E03.9 Hypothyroidism, unspecified; Z79.899 Other long term (current) drug therapy; F32.A Depression, unspecified; Z90.49 Acquired absence of other specified parts of digestive tract; Z90.710 Acquired absence of both cervix and uterus
CPT/HCPCS: 71045; 80048; 84484; 85025; 93005; 96360; 99284

== ENCOUNTER → 2024-10-06 05:00 | Outpatient (REF) | payer MEDICARE, SELFPAY ==
[2024-10-06 06:44] LABS: Hemoglobin 12.2 g/dL (12.0-15.0); Mean Corp Hgb Conc 33.9 g/dL (32-36); Mean Corpuscular Hgb 30.3 pg (27.0-32.0); Mean Corpuscular Volume 89.3 fL (81-99); Mean Platelet Vol. 9.9 fl (6.2-12.0); Platelet Count 182 K/mm3 (150-450); RBC Distribution Width CV 12.9 % (11.6-14.6); RBC Distribution Width SD 42.3 fl (35.1-43.9); Red Blood Count 4.03 M/mm3 (4.2-5.4); White Blood Count 4.8 K/mm3 (4.4-11.0)
[2024-10-06 07:21] LABS: Valproic Acid (Depakene) Level 27 ug/mL (50-100)
[2024-10-06 07:24] LABS: AST(SGOT) 19 U/L (<=31); Alanine Aminotransfer ALT/SGPT 12 U/L (<=34); Albumin, Serum 3.7 g/dL (3.4-4.8); Alkaline Phosphatase 51 U/L (35-104); Bilirubin, Direct 0.24 mg/dL (0.00-0.30); Protein, Total 5.7 g/dL (5.9-8.4); Total Bilirubin 0.57 mg/dL (0.00-1.30)
== END ==
LOC: OLS.SW 05:00
PROVIDERS: PCP Internal Medicine; Visit Provider Internal Medicine
DX: E11.9 Type 2 diabetes mellitus without complications (principal); E55.9 Vitamin D deficiency, unspecified; E78.5 Hyperlipidemia, unspecified
CPT/HCPCS: 36415; 80076; 80164; 85027

== ENCOUNTER → 2024-10-09 05:00 | Outpatient (REF) | payer MEDICARE, SELFPAY ==
[2024-10-09 08:16] LABS: Hematocrit 38.5 % (37-47); Hemoglobin 12.8 g/dL (12.0-15.0); Mean Corp Hgb Conc 33.2 g/dL (32-36); Mean Corpuscular Hgb 30.2 pg (27.0-32.0); Mean Corpuscular Volume 90.8 fL (81-99); Mean Platelet Vol. 10.6 fl (6.2-12.0); Platelet Count 172 K/mm3 (150-450); RBC Distribution Width CV 12.9 % (11.6-14.6); RBC Distribution Width SD 42.7 fl (35.1-43.9); Red Blood Count 4.24 M/mm3 (4.2-5.4); White Blood Count 6.3 K/mm3 (4.4-11.0)
[2024-10-09 09:22] LABS: Valproic Acid (Depakene) Level 41 ug/mL (50-100)
[2024-10-09 09:33] LABS: Hemoglobin A1c 9.4 % (<=5.6)
[2024-10-09 09:42] LABS: Cholesterol 132 mg/dL (<=200); High Density Lipoprotein 53 mg/dL; Low Density Lipoprotein Calc. 48 mg/dL; Triglycerides 157 mg/dL; Very Low Density Lipoprotein 31 mg/dL (5-40); cholesterol:hdl ratio screen 2.51
[2024-10-09 09:51] LABS: ALB/GLOB Ratio 1.8 RATIO (0.9-2.4); AST(SGOT) 20 U/L (<=31); Alanine Aminotransfer ALT/SGPT 12 U/L (<=34); Albumin, Serum 3.9 g/dL (3.4-4.8); Alkaline Phosphatase 52 U/L (35-104); Anion Gap 13 (5-15); BUN 15 mg/dL (4-19); BUN/Creat Ratio 25.3 RATIO (10-20); Calcium,Total 9.6 mg/dL (7.6-11.0); Carbon Dioxide 25.3 mmol/L (21.0-32.0); Chloride 102 mmol/L (98-108); Creatinine, Serum 0.58 mg/dL (0.70-1.20); EST Glomerular Filtration Rate 89 (>60); Globulin 2.1 g/dL (2.2-4.2); Glucose 136 mg/dL (70-99); Potassium 3.7 mmol/L (3.3-5.1); Sodium Level 141 mmol/L (133-145); Total Bilirubin 0.51 mg/dL (0.00-1.30)
== END ==
LOC: OLS.SW 05:00
PROVIDERS: PCP Internal Medicine; Referring Provider Internal Medicine; Visit Provider Internal Medicine
DX: E11.9 Type 2 diabetes mellitus without complications (principal); E03.9 Hypothyroidism, unspecified; E78.5 Hyperlipidemia, unspecified
CPT/HCPCS: 36415; 80053; 80061; 80164; 83036; 84443; 85027

== ENCOUNTER → 2024-12-12 04:00 | Outpatient (REF) | payer MEDICARE, SELFPAY ==
--- OUTSIDE RECORDS SUMMARY | 2024-12-12 04:08 | XMS RPT_ITS | CCD ---
Author Organization [facility] Care Team Providers Care Senior Test Engineer Name Role Phone Jose Corbett MD Primary Care Provider Tony TUG MASTER.NEONATAL INTENSIVE CARE UNIT NURSE, Evita Primary Care Provider Jose Corbett MD Primary Care Provider Dr. Jose Corbett Primary Care Provider Dr. Aris Herrera Emergency Provider Dr. Sean Ivy Admit Provider Dr. Sean Ivy Attending Provider [phone] Dr. Sean Ivy Other Provider Jose Corbett MD Primary Care Provider Dr. Artur Gallardo Emergency Provider Tony ORDER PACKER OR PACKAGER, ORDER PACKER OR PACKAGER-C Evita Primary Care Provider Dr. Viri Mcclelland Admit Provider Dr. Viri Mcclelland Other Provider Dr. Teddy Turpin Attending Provider Dr. Teddy Turpin Other Provider Jose Corbett MD Primary Care Provider Grey TUG MASTER.KILN WORKER Christina Primary Care Provider Grey TUG MASTER.KILN WORKER, Christina Primary Care Provider Grey TUG MASTER.KILN WORKER, Christina Primary Care Provider Milady Davila Attending Unavailable Grey ORDER PACKER OR PACKAGER, Christina Primary Care Unavailable Milady Davila Attending Unavailable Milady Davila Referring Unavailable Grey ORDER PACKER OR PACKAGER, Christina Primary Care Unavailable GREY, CHRISTINA Attending Unavailable GREY, CHRISTINA Primary Care Unavailable GREY, CHRISTINA Referring Unavailable GREY, CHRISTINA Primary Care Unavailable TESTRAKE, DAGMAR Attending Unavailable TESTRAKE, DAGMAR Referring Unavailable GREY, CHRISTINA Primary Care Unavailable GREY, CHRISTINA Primary Care Unavailable GREY, CHRISTINA Attending Unavailable TESTRAKE, DAGMAR Attending Unavailable TESTRAKE, DAGMAR Referring Unavailable GREY, CHRISTINA Primary Care Unavailable GANTA, JOSE Attending Unavailable GREY, CHRISTINA Primary Care Unavailable GREY, CHRISTINA Referring Unavailable GANTA, JOSE Referring Unavailable GREY, CHRISTINA Primary Care Unavailable GREY, CHRISTINA Primary Care Unavailable GREY, CHRISTINA Primary Care Unavailable GREY, CHRISTINA Primary Care Unavailable GREY, CHRISTINA Primary Care Unavailable Medications Current Medications Medication Drug Class(es) Dates Sig (Normalized) Sig (Original) acetaminophen 325 mg oral tablet (2 sources) Start: 10-30-2015 End: 11-27-2021 take 2 tablets by mouth every six hours as needed acetaminophen (TYLENOL) 325 mg tablet Take 2 tablets by mouth every 6 hours as needed. 0 10/30/2015 11/27/2021 Discontinued Comment on above: Take 2 tablets by [facility] every 6 hours as needed. amoxicillin 875 mg / clavulanate 125 mg oral tablet (4 sources) Penicillin-class Antibacterial Start: 07-20-2023 End: 07-30-2023 take 1 tablet by mouth twice daily amoxicillin-clavul anate potassium (AUGMENTIN) 875-125 mg per tablet Indications: Paronychia of finger of left hand Take 1 tablet by mouth two times a day for 10 days. 20 tablet 0 07/20/2023 07/30/2023 Active Comment on above: Take 1 tablet by [facility] two times a day for 10 days. bacitracin 0.5 unt/mg topical ointment (6 sources) Start: 08-01-2024 End: 08-15-2024 bacitracin 500 unit/gram ointment Apply to affected area once daily for 14 days. 28 g 2 08/01/2024 08/15/2024 Active Start: 07-19-2024 End: 07-24-2024 bacitracin 500 unit/gram oin tment Indications: Skin tear of lower leg without complication, initial encounter Apply to affected area two times a day for 5 days. 14 g 1 07/19/2024 07/24/2024 Active busPIRone hydrochloride 5 mg oral tablet (20 sources) Start: 08-08-2023 End: 11-26-2024 take 1 tablet by mouth twice daily busPIRone (BUSPAR) 5 mg tablet Take 1 tablet by mouth two times a day. 180 tablet 08/28/2024 11/26/2024 Active End: 08-06-2023 take 1 tablet by mouth twice daily busPIRone (BUSPAR) 5 mg tablet Take 5 mg by mouth two times a day. 0 08/06/2023 Discontinued Comment on above: Take 5 mg by mouth t wo times a day. Take 1 tablet by renee th two times a day. cephalexin 500 mg oral capsule (3 sources) Cephalosporin Antibacterial Start: End: take 1 capsule by mouth twice daily cephALEXin (KEFLEX) 500 mg capsule Indications: Skin tear of lower leg without complication, initial encounter Take 1 capsule by mouth two times a day for 5 days. 10 capsule 07/19/2024 07/24/2024 Active cholecalciferol 0.05 mg oral tablet (6 sources) Vitamin D Start: take 1 tablet by mouth once daily cholecalciferol (VITAMIN D-3) 50 mcg (2,000 unit) tablet Indications: Vitamin D deficiency Take 1 tablet by mouth once daily. 90 tablet 1 08/02/2024 Active cranberry conc-ascorbic acid 4,200-20 mg cap (2 sources) Start: 016 End: 022 cranberry conc-ascorbic acid 4,200-20 mg cap Take by mouth. 0 10/30/2015 11/27/2021 Discontinued Start: 10-30-2015 cranberry conc -ascorbic acid 4,200-20 mg cap Take by mouth. 0 10/30/2015 Active Comment on above: Take by mouth. diphenhydrAMINE hydrochloride 25 mg oral capsule (2 sources) Histamine-1 Receptor Antagonist Start: 10-30-19 16 End: 11-28-19 22 take 1 capsule by mouth every twenty-four hours as needed diphenhydrAMINE (BENADRYL) 25 mg capsule Take 1 capsule by mouth at bedtime as needed. 0 10/30/2015 11/27/2021 Discontinued Comment on above: Take 1 capsule by mo [facility] at bedtime as needed. donepezil hydrochloride 10 mg oral tablet (20 sources) Start: 03-14-20 take 1 tablet by mouth once daily at bedtime donepezil (ARICEPT) 10 mg tablet Take 1 tablet by mouth daily at bedtime. 90 tablet 3 03/14/2024 Active Start: 08-08-2023 End: 03-14-2024 take 1 tablet by mouth once daily at bedtime donepezil (ARICEPT) 5 mg tablet Take 1 tablet by mouth daily at bedtime. 90 tablet 3 02/11/2024 03/14/2024 Discontinued End: 08-06-2023 take 1 tablet by mouth once daily at bedtime donepezil (ARICEPT) 5 mg tablet Take 5 mg by mouth daily at bedtime. 0 08/06/2023 Discontinued Comment on above: Take 5 mg by mouth d aily at bedtime. Take 1 tablet by renee daily at bedtime. ibuprofen 200 mg oral tablet (2 sources) Nonsteroidal Anti-inflammatory Drug End: 11-28-19 take 1 tablet by mouth every six hours as needed ibuprofen (ADVIL) 200 mg tablet Take 200 mg by mouth every 6 hours as needed. 0 11/27/2021 Discontinued Comment on above: Take 200 mg by mouth every 6 hours as needed. Insulin Glargine-Yfgn (1 source) Start: 06-21-19 Insulin Glargine-Yfgn Active 20 UNIT SC AT BEDTIME 0 June 21, 2023 12:00am 3 ml insulin lispro 100 unt/ml pen injector (1 source) Insulin Analog Start: 06-21-19 Insulin Lispro (Humalog Kwikpen Insulin) 100 unit/mL Insulin Pen Active 7 UNIT SC THREE TIMES DAILY BEFORE MEALS 0 June 21, 2023 12:00am levothyroxine sodium 0.112 mg oral tablet (20 sources) l-Thyroxine Start: 07-13-19 End: 02-10-20 take 1 tablet by mouth once daily levothyroxine (SYNTHROID) 112 mcg tablet Indications: Acquired hypothyroidism Take 1 tablet by mouth once daily. For 6 days of the week. 90 tablet 3 02/11/2024 Active Start: 06-25-2018 End: 02-27-2022 levothyroxine (SYNTHROID) 88 mcg tablet Take 1 pill daily except one day per week take 1.5 pills (total 7.5 pills per week) 100 tablet 3 02/27/2022 Active Comment on above: Take 1 pill daily ex cept one day per week take 1.5 pills (total 7.5 pills per week) Take 1 tablet by renee th once daily. melatonin 10 mg oral tablet (20 sources) Start: 11-12-2023 End: 11-26-2024 take 1 tablet by mouth once daily at bedtime melatonin 10 mg tab Indications: Moderate dementia with other behavioral disturbance, unspecified dementia type (HCC) Take 1 tablet by mouth daily at bedtime. 90 tablet 08/28/2024 11/26/2024 Active Start: 11-10-2023 End: 11-12-2023 take 3 tablets by mouth once daily at bedtime melatonin 3 mg tablet Take 3 tablets by mouth daily at bedtime. 90 tablet 2 11/10/2023 11/12/2023 Discontinued Start: 08-06-2023 take 3 tablets by mo uth once daily at bedtime melatonin 3 mg tablet Take 3 tablets by mouth daily at bedtime. 90 tablet 2 08/06/2023 Active End: 11-27-2021 melatonin 3 mg capsules Take by mouth. 0 11/27/2021 Discontinued Comment on above: Take by mouth. Take 3 tablets by mo uth daily at bedtime. metFORMIN hydrochloride 500 mg oral tablet (20 sources) Biguanide Start: take 2 tablets by mouth once daily at breakfast, then take 1 tablet by mouth once daily at dinner metFORMIN (GLUCOPHAGE) 500 mg tablet Indications: Type 2 diabetes mellitus without complication, without long-term current use of insulin (HCC) Take 2 tablets by mouth daily with breakfast AND 1 tablet daily with dinner. 03/14/2024 Active Start: 11-12-2023 End: 03-14-2024 take 2 tablets by mouth twice daily at mealtime metFORMIN (GLUCOPHAGE) 500 mg tablet Indications: Type 2 diabetes mellitus without complication, without long-term current use of insulin (HCC) Take 2 tablets by mouth two times a day with meals. 450 tablet 3 12/10/2023 03/14/2024 Discontinued (Adjust Sig - Block E-Cancel) Start: 08-13-2023 End: 11-12-2023 take 1 tablet by mouth twice daily at mealtime metFORMIN (GLUCOPHAGE) 500 mg tablet Take 1 tablet by mouth two times a day with meals. 0 08/13/2023 11/12/2023 Discontinued Start: 07-13-2023 End: 08-13-2023 take 1 tablet by mouth once daily at dinner, then take 2 tablets by mouth once daily at breakfast metFORMIN (GLUCOPHAGE) 500 mg tablet Take 1 tablet by mouth daily with dinner AND 2 tablets daily with breakfast. 0 07/13/2023 08/13/2023 Discontinued Start: 07-12-2023 take 1 tablet by renee th twice daily metFORMIN (GLUCOPHAGE) 500 mg tablet Take 1 tablet by mouth two times a day. 0 07/12/2023 Active Start: 01-24-2021 End: 07-12-2023 take 2 tablets by mouth twice daily, then take 1 tablet by mouth once daily at lunch metFORMIN (GLUCOPHAGE) 500 mg tablet Take 2 tablets by mouth twice daily and take 1 tablet daily at lunch 450 tablet 3 02/27/2022 07/12/2023 Discontinued (Adjust Sig - Block E-Cancel) Start: 06-25-2018 End: 06-21-2023 take 1000 mg by mouth twice daily at mealtime Metformin Discontinued 1000 MG PO TWICE DAILY WITH MEALS June 25, 2018 12:00am June 21, 2023 4:48pm Comment on above: Take 2 tablets by mo ut twice daily and take 1 tablet daily at lunch Take 1 tablet by renee th two times a day. Take 1 tablet by renee th daily with dinner AND 2 tablets daily with breakfast. Take 1 tablet by renee th two times a day with meals. mupirocin 0.02 mg/mg topical ointment (6 sources) RNA Synthetase Inhibitor Antibacterial Start: 07-17-19 End: 07-30-19 mupirocin (BACTROBAN) 2 % ointment Apply 1 application to affected area three times a day for 10 days. 30 g 0 07/20/2023 07/30/2023 Active Comment on above: Apply 1 application to affected area three times a day for 10 days. nirmatrelvir tablet 300 mg (150 mg x 2) and ritonavir tablet 100 mg in a dose pack (PAXLOVID) (1 source) Start: 01-30-20 End: 02-04-20 nirmatrelvir tablet 300 mg (150 mg x 2) and ritonavir tablet 100 mg in a dose pack (PAXLOVID) Administer TWO pink nirmatrelvir 150 mg tablets and ONE white ritonavir 100 mg tablet for a total of three tablets twice daily. 30 tablet 0 01/29/2022 02/03/2022 Active Comment on above: Administer TWO pink nirmatrelvir 150 mg tablets and ONE white ritonavir 100 mg tablet for a total of three tablets twice daily. QUEtiapine 50 mg oral tablet (20 sources) Atypical Antipsychotic Start: 07-12-19 End: 11-27-19 take 1 tablet by mouth once daily at bedtime QUEtiapine (SEROQUEL) 50 mg tablet Indications: Moderate dementia with other behavioral disturbance, unspecified dementia type (HCC) Take 1 tablet by mouth daily at bedtime. 90 tablet 08/28/2024 11/26/2024 Active Start: 07-12-2023 End: 07-27-2023 take 1 tablet by mouth once daily in the morning QUEtiapine (SEROQUEL) 25 mg tablet Indications: Moderate dementia with other behavioral disturbance, unspecified dementia type (HCC) Take 1 tablet by mouth once daily. In the morning 30 tablet 3 07/12/2023 07/27/2023 Discontinued End: 07-12-2023 take 1 tablet by mouth twice daily QUEtiapine (SEROQUEL) 25 mg tablet Take 25 mg by mouth two times a day. 0 07/12/2023 Discontinued Comment on above: Take 1 tablet by renee th once daily. In the morning Take 1 tablet by renee th daily at bedtime. Take 25 mg by mouth two times a day. risperiDONE 0.5 mg oral tablet (1 source) Atypical Antipsychotic Start: 06-21-19 take 0.5 mg by mouth at bedtime Risperidone Active 0.5 MG PO AT BEDTIME 0 June 21, 2023 12:00am simvastatin 40 mg oral tablet (20 sources) HMG-CoA Reductase Inhibitor Start: 06-25-19 End: 10-21-19 take 1 tablet by mouth once daily at bedtime simvastatin (ZOCOR) 40 mg tablet Take 1 tablet by mouth daily at bedtime. 90 tablet 3 10/21/2023 Active Comment on above: Take 1 tablet by renee th daily at bedtime. UBIDECARENONE/VITAMI N E MIXED (COQ10 SG 100 ORAL) (2 sources) End: 11-28-19 UBIDECARENONE/VITAMI N E MIXED (COQ10 SG 100 ORAL) Take by mouth. 0 11/27/2021 Discontinued UBIDECARENONE/ TAMIN E MIXED (COQ10 SG 100 ORAL) Take by mouth. 0 Active Comment on above: Take by mouth. Underpads 30 X 30 " pads (20 sources) Start: 07-12-2023 Underpads 30 X 30 " pads Indications: Nocturnal enuresis 1 Each once daily. 100 Each 3 07/12/2023 Active Start: 07-12-2023 End: 07-12-2023 Underpads 30 X 30 " pads Ind ications: Nocturnal enuresis 1 Each once daily. 100 Each 3 07/12/2023 07/12/2023 Discontinued Comment on above: 1 Each once daily. vitamin b12 1 mg/ml injectable solution (20 sources) Vitamin B12 Start: 06-22-2024 End: 06-16-2025 cyanocobalamin 1,000 mcg injection Start: 05-01-2024 End: 05-28-2024 1,000 mcg, INTRAMUSCULAR, 1 TIME WEEKLY, 4 doses, First dose on Wed05/01/24 at 0000, Last dose on Wed05/22/24 at 0000 Start: 05-01-2024 End: 05-28-2024 cyanocobalamin 1,000 mcg inj ection Start: 04-27-2024 End: 04-25-2025 inject 1 mL by intramuscular injection every week cyanocobalamin 1,000 mcg/mL Indications: Vitamin B12 deficiency Inject 1 mL intramuscularly one time a week. 51 mL 04/27/2024 04/25/2025 Active Completed/Discontinued Medications Medication Drug Class(es) Dates Sig (Normalized) Sig (Original) doxycycline monohydrate 100 mg oral tablet (3 sources) Tetracycline-cla ss Drug Start: 07-17-2023 End: 07-24-2023 take 1 tablet by mouth twice daily doxycycline monohydrate 100 mg tablet Take 1 tablet by mouth two times a day for 7 days. 14 tablet 0 07/17/2023 07/20/2023 Discontinued Comment on above: Take 1 tablet by renee th two times a day for 7 days. multivitamin tablet (20 sources) End: 11-12-2023 take 1 tablet by mouth once daily multivitamin tablet Take 1 tablet by mouth once daily. 0 11/12/2023 Discontinued take 1 tablet by mouth once patricia y multivitamin tablet Take 1 tablet by mouth once daily. 0 Active Comment on above: Take 1 tablet by renee th once daily. triamcinolone acetonide 1 mg/ml topical cream (20 sources) Corticosteroid Start: 01-09-2022 End: 11-12-2023 triamcinolone acetonide (KENALOG) 0.1 % cream Apply 1 application to affected area three times daily. Apply sparingly to area for rash/itching. 30 g 0 01/09/2022 11/12/2023 Discontinued Comment on above: Apply 1 application to affected area three times daily. Apply sparingly to area for rash/itching. Problems Active Problems Problem Classification Problem Date Documented Da te Episodic/Chronic Delirium, dementia, and amnestic and other cognitive disorders (20 sources) Dementia with behavioral disturbance; Translations: [Moderate dementia with other behavioral disturbance, unspecified dementia type (HCC)] Onset: 4 07-12-2023 Chronic Diabetes mellitus without complication (20 sources) Type 2 diabetes mellitus without complication; Translations: [Type 2 diabetes mellitus without complications] Onset: 6 Chronic Disorders of lipid metabolism (20 sources) Hypercholesterolemia; Translations: [Pure hypercholesterolemia, unspecified] Onset: 6 10-30-2015 Chronic Fluid and electrolyte disorders (3 sources) Dehydration; Translations: [Dehydration] Episodic Genitourinary symptoms and ill-defined conditions (1 source) Nocturnal enuresis; Translations: [Nocturnal enuresis] 07-12-2023 Chronic Immunizations and screening for infectious disease (4 sources) Requires varicella vaccination; Translations: [Encounter for immunization] Episodic Mycoses (5 sources) Onychomycosis; Translations: [Tinea unguium] Episodic Nutritional deficiencies (4 sources) Vitamin D deficiency; Translations: [Vitamin D deficiency, unspecified] Onset: 5 08-01-2024 Chronic Open wounds of extremities (2 sources) Tear of skin; Translations: [Laceration without foreign body, unspecified lower leg, initial encounter] 07-19-2024 Episodic Other aftercare (1 source) Post-discharge follow-up; Translations: [Encounter for follow-up examination after completed treatment for conditions other than malignant neoplasm] 07-12-2023 Episodic Other connective tissue disease (4 sources) Pain of toe of left foot; Translations: [Pain in left toe(s)] 07-20-2023 Episodic Other connective tissue disease (4 sources) Pain of toe of right foot; Translations: [Pain in right toe(s)] 07-20-2023 Episodic Other diseases of veins and lymphatics (1 source) Vascular insufficiency; Translations: [Venous insufficiency (chronic) (peripheral)] 07-20-2023 Episodic Other gastrointestinal disorders (3 sources) Diarrhea; Translations: [Diarrhea, unspecified] Episodic Other gastrointestinal disorders (2 sources) History of gastrointestinal bleed; Translations: [Personal history of other diseases of the digestive system] 05-16-2013 Episodic Other gastrointestinal disorders (1 source) Diarrhea, unspecified; Translations: [Diarrhea] Episodic Other screening for suspected conditions (not mental disorders or infectious disease) (6 sources) Patient encounter status; Translations: [Encounter for screening for eye and ear disorders] Episodic Other skin disorders (1 source) Eruption; Translations: [Rash and other nonspecific skin eruption] Episodic Other skin disorders (1 source) Skin lesion; Translations: [Disorder of the skin and subcutaneous tissue, unspecified] Episodic Other skin disorders (1 source) Asteatosis cutis; Translations: [Xerosis cutis] 07-20-2023 Episodic Residual codes; unclassified (2 sources) Memory impairment; Translations: [Other amnesia] Episodic Residual codes; unclassified (1 source) Altered mental status; Translations: [Altered mental status, unspecified] 06-19-2023 Episodic Residual codes; unclassified (1 source) Altered mental status, unspecified; Translations: [Altered mental status] 06-22-2023 Episodic Residual codes; unclassified (1 source) Driving fitness status; Translations: [Other specified personal risk factors, not elsewhere classified] 03-14-2024 Episodic Spondylosis; intervertebral disc disorders; other back problems (1 source) Neck pain; Translations: [Cervicalgia] 06-19-2023 Episodic Syncope (4 sources) Syncope; Translations: [Syncope and collapse] Episodic Thyroid disorders (20 sources) Hypothyroidism; Translations: [Hypothyroidism, unspecified] Onset: 5 10-30-2015 Chronic Unclassified (1 source) Moderate dementia with other behavioral disturbance, unspecified dementia type (HCC); Translations: [Moderate dementia with other behavioral disturbance, unspecified dementia type (HCC)] Onset: 4 Viral infection (8 sources) Disease caused by 2019-nCoV; Translations: [COVID-19] Episodic Past or Other Problems Problem Classification Problem Date Documented Da te Episodic/Chronic Nutritional deficiencies (14 sources) Cobalamin deficiency; Translations: [Deficiency of other specified B group vitamins] Onset: 08-01-2024 04-27-2024 Episodic Other aftercare (1 source) Encounter for therapeutic drug level monitoring; Translations: [Encounter for therapeutic drug monitoring] Onset: 08-01-2024 Episodic Other nutritional; endocrine; and metabolic disorders (20 sources) Hypercalcemia; Translations: [Hypercalcemia] Onset: 11-16-2016 Resolved: 12-10-2017 12-10-2017 Chronic Skin and subcutaneous tissue infections (5 sources) Paronychia of finger of left hand; Translations: [Cellulitis of left finger] 07-17-2023 Episodic Results Test Name Value Interpretation Reference Range Facility CBC-Complete Blood Cnt No Di ffon 10-09-2024 Erythrocyte distribution width (RBC) [Ratio] 12.9 % Normal 11.6-14.6 [facility] Comment on above: Performed By: #### L 501.8100, L500.4100, L100.0500, L501.9985, L501.9520, L500.4050 #### [facility] [address] [place], [address] Hematocrit (Bld) [Volume fraction] 38.5 % Normal 37-47 [facility] Comment on above: Performed By: #### L [id number], L500.4100, L100.0500, L501.9985, L501.9520, L500.4050 #### [facility] [address] [place], [address] Hemoglobin (Bld) [Mass/Vol] 12.8 g/dL Normal 12.0-15.0 [facility] Comment on above: Performed By: #### L [id number], L500.4100, L100.0500, L501.9985, L501.9520, L500.4050 #### [facility] [address] [place], [address] MCH (RBC) [Entitic mass] 30.2 pg Normal 27.0-32.0 [facility] Comment on above: Performed By: #### L [id number], L500.4100, L100.0500, L501.9985, L501.9520, L500.4050 #### [facility] [address] [place], [address] MCHC (RBC) [Mass/Vol] 33.2 g/dL Normal 32-36 [facility] Comment on above: Performed By: #### L [id number], L500.4100, L100.0500, L501.9985, L501.9520, L500.4050 #### [facility] [address] [place], [address] MCV (RBC) [Entitic vol] 90.8 fL Normal 81-99 [facility] Comment on above: Performed By: #### L [id number], L500.4100, L100.0500, L501.9985, L501.9520, L500.4050 #### [facility] [address] [place], [address] Platelet mean volume (Bld) [Entitic vol] 10.6 fL Normal 6.2-12.0 [facility] Comment on above: Performed By: #### L [id number], L500.4100, L100.0500, L501.9985, L501.9520, L500.4050 #### [facility] [address] [place], [address] Platelets (Bld) [#/Vol] 172 10*3/uL Normal 150-450 [facility] Comment on above: Performed By: #### L [id number], L500.4100, L100.0500, L501.9985, L501.9520, L500.4050 #### [facility] [address] [place], [address] RBC (Bld) [#/Vol] 4.24 10*6/uL Normal 4.2-5.4 [facility] Comment on above: Performed By: #### L [id number], L500.4100, L100.0500, L501.9985, L501.9520, L500.4050 #### [facility] [address] [place], [address] RDW SD 42.7 fl Normal 35.1-43.9 [facility] Comment on above: Performed By: #### L [id number], L500.4100, L100.0500, L501.9985, L501.9520, L500.4050 #### [facility] [address] [place], [address] WBC (Bld) [#/Vol] 6.3 10*3/uL Normal 4.4-11.0 [facility] Comment on above: Performed By: #### L [id number], L500.4100, L100.0500, L501.9985, L501.9520, L500.4050 #### [facility] [address] [place], [address] Comprehensive Metabolic Prof [facility] 10-09-2024 Albumin [Mass/Vol] 3.9 g/dL Normal 3.4-4.8 [facility] Comment on above: Performed By: #### L [id number], L500.4100, L100.0500, L501.9985, L501.9520, L500.4050 #### [facility] [address] [place], [address] Albumin/Globulin [Mass ratio] 1.8 {ratio} Normal 0.9-2.4 [facility] Comment on above: Performed By: #### L [id number], L500.4100, L100.0500, L501.9985, L501.9520, L500.4050 #### [facility] [address] [place], [address] ALK PHOS 52 U/L Normal 35-104 [facility] Comment on above: Performed By: #### L [id number], L500.4100, L100.0500, L501.9985, L501.9520, L500.4050 #### [facility] [address] [place], [address] ALT [Catalytic activity/Vol] 12 U/L Normal <=34 [facility] Comment on above: Performed By: #### L [id number], L500.4100, L100.0500, L501.9985, L501.9520, L500.4050 #### [facility] [address] [place], [address] AST [Catalytic activity/Vol] 20 U/L Normal <=31 [facility] Comment on above: Performed By: #### L 501.8100, L500.4100, L100.0500, L501.9985, L501.9520, L500.4050 #### [facility] [address] [place], [address] Bilirubin [Mass/Vol] 0.51 mg/dL Normal 0.00-1.30 [facility] Comment on above: Performed By: #### L 501.8100, L500.4100, L100.0500, L501.9985, L501.9520, L500.4050 #### [facility] [address] [place], [address] BUN/CRE 25.3 RATIO High 10-20 [facility] Comment on above: Performed By: #### L 501.8100, L500.4100, L100.0500, L501.9985, L501.9520, L500.4050 #### [facility] [address] [place], [address] Calcium [Mass/Vol] 9.6 mg/dL Normal 7.6-11.0 [facility] Comment on above: Performed By: #### L 501.8100, L500.4100, L100.0500, L501.9985, L501.9520, L500.4050 #### [facility] [address] [place], [address] Chloride [Moles/Vol] 102 mmol/L Normal 98-108 [facility] Comment on above: Performed By: #### L 501.8100, L500.4100, L100.0500, L501.9985, L501.9520, L500.4050 #### [facility] [address] [place], [address] CO2 [Moles/Vol] 25.3 mmol/L Normal 21.0-32.0 [facility] Comment on above: Performed By: #### L 501.8100, L500.4100, L100.0500, L501.9985, L501.9520, L500.4050 #### [facility] [address] [place], [address] Creatinine [Mass/Vol] 0.58 mg/dL Low 0.70-1.20 [facility] Comment on above: Performed By: #### L 501.8100, L500.4100, L100.0500, L501.9985, L501.9520, L500.4050 #### [facility] [address] [place], [address] GAP 13 Normal 5-15 [facility] Comment on above: Performed By: #### L 501.8100, L500.4100, L100.0500, L501.9985, L501.9520, L500.4050 #### [facility] [address] [place], [address] GFR/1.73 sq M.predicted among non-blacks MDRD (S/P/Bld) [Vol rate/Area] 89 mL/min/{1.73_m2} Normal >60 [facility] Comment on above: Result Comment: mL/m in/1.73m2 CKD-EPI Creatinine Equation (2020) Performed By: #### L 501.8100, L500.4100, L100.0500, L501.9985, L501.9520, L500.4050 #### [facility] [address] [place], [address] Globulin (S) [Mass/Vol] 2.1 g/dL Low 2.2-4.2 [facility] Comment on above: Performed By: #### L 501.8100, L500.4100, L100.0500, L501.9985, L501.9520, L500.4050 #### [facility] [address] [place], [address] Glucose [Mass/Vol] 136 mg/dL High 70-99 [facility] Comment on above: Performed By: #### L 501.8100, L500.4100, L100.0500, L501.9985, L501.9520, L500.4050 #### [facility] [address] [place], [address] Potassium [Moles/Vol] 3.7 mmol/L Normal 3.3-5.1 [facility] Comment on above: Result Comment: Hemo lysis present, Results??could be affected. ?? Performed By: #### L 501.8100, L500.4100, L100.0500, L501.9985, L501.9520, L500.4050 #### [facility] [address] [place], [address] Sodium [Moles/Vol] 141 mmol/L Normal 133-145 [facility] Comment on above: Performed By: #### L 501.8100, L500.4100, L100.0500, L501.9985, L501.9520, L500.4050 #### [facility] [address] [place], [address] T PROT 6.0 g/dL Normal 5.9-8.4 [facility] Comment on above: Performed By: #### L 501.8100, L500.4100, L100.0500, L501.9985, L501.9520, L500.4050 #### [facility] [address] [place], [address] Urea nitrogen [Mass/Vol] 15 mg/dL Normal 4-19 [facility] Comment on above: Performed By: #### L 501.8100, L500.4100, L100.0500, L501.9985, L501.9520, L500.4050 #### [facility] [address] [place], [address] Hemoglobin A1con 10-09-2024 HbA1c (Bld) [Mass fraction] 9.4 % High <=5.6 [facility] Comment on above: Result Comment: Norm al < 5.7 % Prediabetic 5.7 - 6.4 % Diabetic >or= 6.5 % Please note range changes. Performed By: #### L 501.8100, L500.4100, L100.0500, L501.9985, L501.9520, L500.4050 #### [facility] [address] [place], [address] Lipid Profileon 10-09-2024 CHOL:HDL 2.51 Normal [facility] Comment on above: Performed By: #### L 501.8100, L500.4100, L100.0500, L501.9985, L501.9520, L500.4050 #### [facility] [address] [place], [address] Cholesterol [Mass/Vol] 132 mg/dL Normal <=200 [facility] Comment on above: Result Comment: Chol esterol level, Desirable <200 mg/dL Borderline high cholesterol 200-239 mg/dL High cholesterol >=240 mg/dL Recommendations of the NCEP Adult Treatment Panel for the following risk-cutoff thresholds for the [place] population. Performed By: #### L 501.8100, L500.4100, L100.0500, L501.9985, L501.9520, L500.4050 #### [facility] [address] [place], [address] Cholesterol in HDL [Mass/Vol] 53 mg/dL Normal [facility] Comment on above: Result Comment: Dora onal Cholesterol Education Program (NCEP) guidelines: <40 mg/dL: Low HDL-cholesterol (major risk factor for CHD) >= 60 mg/dL: High HDL-cholesterol (negative risk factor for CHD) HDL-cholesterol is affected by a number of factors, e.g. smoking, exercise, hormones, sex and age. Performed By: #### L 501.8100, L500.4100, L100.0500, L501.9985, L501.9520, L500.4050 #### [facility] [address] [place], [address] Cholesterol in LDL [Mass/Vol] 48 mg/dL Normal [facility] Comment on above: Result Comment: Bord abgqct=542-498 mg/dL Higher Iqsu=302 mg/dL or greater Performed By: #### L 501.8100, L500.4100, L100.0500, L501.9985, L501.9520, L500.4050 #### [facility] [address] [place], [address] Cholesterol in VLDL [Mass/Vol] 31 mg/dL Normal 5-40 [facility] Comment on above: Performed By: #### L 501.8100, L500.4100, L100.0500, L501.9985, L501.9520, L500.4050 #### [facility] [address] [place], [address] Triglyceride [Mass/Vol] 157 mg/dL Normal [facility] Comment on above: Result Comment: The drugs N-Acetylcysteine and Metamizole may falsely depress this assay. Normal range: <150 mg/dL Borderline High: 150-199 mg/dL High: 200-499 mg/dL Very High: >500 mg/dL Performed By: #### L 501.8100, L500.4100, L100.0500, L501.9985, L501.9520, L500.4050 #### [facility] [address] [place], [address] Thyroid Stim Hormone (TSH)on 10-09-2024 TSH 3.420 uIU/mL Normal 0.300-4.200 [facility] Comment on above: Performed By: #### L 501.8100, L500.4100, L100.0500, L501.9985, L501.9520, L500.4050 #### [facility] [address], [address] Valproic Acid (Depakene) Lev itzel 10-09-2024 VALPROIC ACID 41 ug/mL Low 50-100 [facility] Comment on above: Result Comment: Valp roic Acid concentrations >100 ug/mL are potentially toxic. Performed By: #### L 501.8100, L500.4100, L100.0500, L501.9985, L501.9520, L500.4050 #### [facility] [address] [place], [address] CBC-Complete Blood Cnt No Di ffon 10-06-2024 Erythrocyte distribution width (RBC) [Ratio] 12.9 % Normal 11.6-14.6 [facility] Comment on above: Order Comment: 411-2 Performed By: #### L 500.3400, L501.8100, L100.0500 #### [facility] [address] [place], [address] Hematocrit (Bld) [Volume fraction] 36.0 % Low 37-47 [facility] Comment on above: Order Comment: 411-2 Performed By: #### L 500.3400, L501.8100, L100.0500 #### [facility] [address] [place], [address] Hemoglobin (Bld) [Mass/Vol] 12.2 g/dL Normal 12.0-15.0 [facility] Comment on above: Order Comment: 411-2 Performed By: #### L 500.3400, L501.8100, L100.0500 #### [facility] [address] [place], [address] MCH (RBC) [Entitic mass] 30.3 pg Normal 27.0-32.0 [facility] Comment on above: Order Comment: 411-2 Performed By: #### L 500.3400, L501.8100, L100.0500 #### [facility] [address] [place], [address] MCHC (RBC) [Mass/Vol] 33.9 g/dL Normal 32-36 [facility] Comment on above: Order Comment: 411-2 Performed By: #### L 500.3400, L501.8100, L100.0500 #### [facility] [address] [place], [address] MCV (RBC) [Entitic vol] 89.3 fL Normal 81-99 [facility] Comment on above: Order Comment: 411-2 Performed By: #### L 500.3400, L501.8100, L100.0500 #### [facility] [address] [place], [address] Platelet mean volume (Bld) [Entitic vol] 9.9 fL Normal 6.2-12.0 [facility] Comment on above: Order Comment: 411-2 Performed By: #### L 500.3400, L501.8100, L100.0500 #### [facility] [address] [place], [address] Platelets (Bld) [#/Vol] 182 10*3/uL Normal 150-450 [facility] Comment on above: Order Comment: 411-2 Performed By: #### L 500.3400, L501.8100, L100.0500 #### [facility] [address] [place], [address] RBC (Bld) [#/Vol] 4.03 10*6/uL Low 4.2-5.4 [facility] Comment on above: Order Comment: 411-2 Performed By: #### L 500.3400, L501.8100, L100.0500 #### [facility] [address] [place], [address] RDW SD 42.3 fl Normal 35.1-43.9 [facility] Comment on above: Order Comment: 411-2 Performed By: #### L 500.3400, L501.8100, L100.0500 #### [facility] [address] [place], [address] WBC (Bld) [#/Vol] 4.8 10*3/uL Normal 4.4-11.0 [facility] Comment on above: Order Comment: 411-2 Performed By: #### L 500.3400, L501.8100, L100.0500 #### [facility] [address] [place], [address] Liver Profileon 10-06-2024 Albumin [Mass/Vol] 3.7 g/dL Normal 3.4-4.8 [facility] Comment on above: Order Comment: 411-2 Performed By: #### L 501.8100, L500.4100, L100.0500, L501.9985, L501.9520, L500.4050 #### [facility] [address] [place], [address] ALK PHOS 51 U/L Normal 35-104 [facility] Comment on above: Order Comment: 411-2 Performed By: #### L 501.8100, L500.4100, L100.0500, L501.9985, L501.9520, L500.4050 #### [facility] [address] [place], [address] ALT [Catalytic activity/Vol] 12 U/L Normal <=34 [facility] Comment on above: Order Comment: 411-2 Performed By: #### L 501.8100, L500.4100, L100.0500, L501.9985, L501.9520, L500.4050 #### [facility] [address] [place], [address] AST [Catalytic activity/Vol] 19 U/L Normal <=31 [facility] Comment on above: Order Comment: 411-2 Performed By: #### L 501.8100, L500.4100, L100.0500, L501.9985, L501.9520, L500.4050 #### [facility] [address] [place], [address] Bilirubin [Mass/Vol] 0.57 mg/dL Normal 0.00-1.30 [facility] Comment on above: Order Comment: 411-2 Performed By: #### L 501.8100, L500.4100, L100.0500, L501.9985, L501.9520, L500.4050 #### [facility] [address] [place], [address] Bilirubin.direct [Mass/Vol] 0.24 mg/dL Normal 0.00-0.30 [facility] Comment on above: Order Comment: 411-2 Performed By: #### L 501.8100, L500.4100, L100.0500, L501.9985, L501.9520, L500.4050 #### [facility] [address] [place], [address] Globulin (S) [Mass/Vol] 2.0 g/dL Low 2.2-4.2 [facility] Comment on above: Order Comment: 411-2 Performed By: #### L 501.8100, L500.4100, L100.0500, L501.9985, L501.9520, L500.4050 #### [facility] [address] [place], [address] T PROT 5.7 g/dL Low 5.9-8.4 [facility] Comment on above: Order Comment: 411-2 Performed By: #### L 501.8100, L500.4100, L100.0500, L501.9985, L501.9520, L500.4050 #### [facility] [address] [place], [address] Valproic Acid (Depakene) Lev itzel 10-06-2024 VALPROIC ACID 27 ug/mL Low 50-100 [facility] Comment on above: Order Comment: 411-2 Result Comment: Valp roic Acid concentrations >100 ug/mL are potentially toxic. Performed By: #### L 501.8100, L500.4100, L100.0500, L501.9985, L501.9520, L500.4050 #### [facility] [address] [place], [address] CNPNon 08-17-2024 [facility] Telephone (INTMWS) -------- NINOSKAALEXANDER ([id number]) 1940 F Date Time Provider Department 08/17/24 CHRISTINA EDMONDS INTHermanWS During your visit today, we recorded the following information about you: Tamara Michelle RN 08/17/2024 12:37 PM Signed Leatha with [facility] calls to review patient medications to see if there is anything patient has been on in the past that has helped her with anxiety. is currently in the hospital and patient is fearful and current medications are not resolving symptoms. Reviewed medications past and present. Leatha specifically asking about lorazepam. No record of patient ever having being prescribed that through us. Leatha to pass information on to house doctor at [facility] to see how they want to proceed with medication management. Tamara Michelle RN Allergies As of Date: 08/17/2024 (No Known Allergies) Date Reviewed: 08/01/2024 Reviewed by: Christina Edmonds APRN.KILN WORKER - Fully Assessed Reason for Visit: Patient Question [3867] Prescriptions as of 08/17/2024 - cholecalciferol (VITAMIN D-3) 50 mcg (2,000 unit) tablet Take 1 tablet by mouth once daily. - busPIRone (BUSPAR) 5 mg tablet Take 1 tablet by mouth two times a day. - cyanocobalamin 1,000 mcg/mL Inject 1 mL intramuscularly one time a week. - donepezil (ARICEPT) 10 mg tablet Take 1 tablet by mouth daily at bedtime. - metFORMIN (GLUCOPHAGE) 500 mg tablet Take 2 tablets by mouth daily with breakfast AND 1 tablet daily with dinner. - QUEtiapine (SEROQUEL) 50 mg tablet Take 1 tablet by mouth daily at bedtime. - levothyroxine (SYNTHROID) 112 mcg tablet Take 1 tablet by mouth once daily. For 6 days of the week. - melatonin 10 mg tab Take 1 tablet by mouth daily at bedtime. - simvastatin (ZOCOR) 40 mg tablet Take 1 tablet by mouth daily at bedtime. - Underpads 30 X 30 " pads 1 Each once daily. 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 Please advise Christina Howell, [place].KILN WORKER 08/07/2024 2:21 PM Signed B12 has returned to with in normal limits, no need to continue these while in [facility], we can resume them once she follows back up with our office. Cathy Gold LPN 08/07/2024 2:50 PM Signed Spoke with nephew Brigido gave information provided. Pt voices understanding. Sunita Ocampo LPN 08/07/2024 3:02 PM Signed Patient nephew Brigido calling back [facility] needs an order to discontinue the Vitamin B 12 injections. Christina Edmonds APRN.RANDI 08/07/2024 3:31 PM Signed Please send signed encounter, thanks! Keely Mckeon LPN 08/07/2024 3:54 PM Signed Signed encounter form has been faxed. Allergies As of Date: 08/07/2024 (No Known Allergies) Date Reviewed: 08/01/2024 Reviewed by: Christina Edmonds APRN.RANDI - Fully Assessed Reason for Visit: Patient Update [1234] Prescriptions as of 08/07/2024 - cholecalciferol (VITAMIN D-3) 50 mcg (2,000 unit) tablet Take 1 tablet by mouth once daily. - bacitracin 500 unit/gram ointment Apply to affected area once daily for 14 days. - busPIRone (BUSPAR) 5 mg tablet Take 1 tablet by mouth two times a day. - cyanocobalamin 1,000 mcg/mL Inject 1 mL intramuscularly one time a week. - donepezil (ARICEPT) 10 mg tablet Take 1 tablet by mouth daily at bedtime. - metFORMIN (GLUCOPHAGE) 500 mg tablet Take 2 tablets by mouth daily with breakfast AND 1 tablet daily with dinner. - QUEtiapine (SEROQUEL) 50 mg tablet Take 1 tablet by mouth daily at bedtime. - levothyroxine (SYNTHROID) 112 mcg tablet Take 1 tablet by mouth once daily. For 6 days of the week. - melatonin 10 mg tab Take 1 tablet by mouth daily at bedtime. - simvastatin (ZOCOR) 40 mg tablet Take 1 tablet by mouth daily at bedtime. - Underpads 30 X 30 " pads 1 Each once daily. 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, [address] BUN/CRE Normal 10-20 [facility] Comment on above: Order Comment: 411.2 Result Comment: LABS CANCELLED PER NURSE DANYELLE @0602 Performed By: #### L 500.2500, L500.4100, L100.0100 #### [facility] [address] [place], [address] Calcium Normal 7.6-11.0 [facility] Comment on above: Order Comment: 411.2 Result Comment: LABS CANCELLED PER NURSE DANYELLE @0602 Performed By: #### L 500.2500, L500.4100, L100.0100 #### [facility] [address] [place], [address] CL Normal 98-108 [facility] Comment on above: Order Comment: 411.2 Result Comment: LABS CANCELLED PER NURSE DANYELLE @0602 Performed By: #### L 500.2500, L500.4100, L100.0100 #### [facility] [address] [place], [address] CO2 Normal 21.0-32.0 [facility] Comment on above: Order Comment: 411.2 Result Comment: LABS CANCELLED PER NURSE DANYELLE @0602 Performed By: #### L 500.2500, L500.4100, L100.0100 #### [facility] [address] [place], [address] CREAT,SERUM Normal 0.70-1.20 [facility] Comment on above: Order Comment: 411.2 Result Comment: LABS CANCELLED PER NURSE DANYELLE @0602 Performed By: #### L 500.2500, L500.4100, L100.0100 #### [facility] [address] [place], [address] eGFR Normal >60 [facility] Comment on above: Order Comment: 411.2 Result Comment: LABS CANCELLED PER NURSE DANYELLE @0602 Performed By: #### L 500.2500, L500.4100, L100.0100 #### [facility] [address] [place], [address] GAP Normal 5-15 [facility] Comment on above: Order Comment: 411.2 Result Comment: LABS CANCELLED PER NURSE DANYELLE @0602 Performed By: #### L 500.2500, L500.4100, L100.0100 #### [facility] [address] [place], [address] GLU Normal 70-99 [facility] Comment on above: Order Comment: 411.2 Result Comment: LABS CANCELLED PER NURSE DANYELLE @0602 Performed By: #### L 500.2500, L500.4100, L100.0100 #### [facility] [address] [place], [address] Potassium Normal 3.3-5.1 [facility] Comment on above: Order Comment: 411.2 Result Comment: LABS CANCELLED PER NURSE DANYELLE @0602 Performed By: #### L 500.2500, L500.4100, L100.0100 #### [facility] [address] [place], [address] Basic Metabolic Profile (BMP) Normal 133-145 [facility] Comment on above: Order Comment: 411.2 Result Comment: LABS CANCELLED PER NURSE DANYELLE @0602 Performed By: #### L 500.2500, L500.4100, L100.0100 #### [facility] [address] [place], [address] CBC W/Diff, Automatedon 03-2 Absolute Neut Normal 2.0-7.7 [facility] Comment on above: Order Comment: 411.2 Result Comment: LABS CANCELLED PER NURSE DANYELLE @0602 Performed By: #### L 500.2500, L500.4100, L100.0100 #### [facility] [address] [place], [address] HCT Normal 37-47 [facility] Comment on above: Order Comment: 411.2 Result Comment: LABS CANCELLED PER NURSE DANYELLE @0602 Performed By: #### L 500.2500, L500.4100, L100.0100 #### [facility] [address] [place], [address] HGB Normal 12.0-15.0 [facility] Comment on above: Order Comment: 411.2 Result Comment: LABS CANCELLED PER NURSE DANYELLE @0602 Performed By: #### L 500.2500, L500.4100, L100.0100 #### [facility] [address] [place], [address] MCH Normal 27.0-32.0 [facility] Comment on above: Order Comment: 411.2 Result Comment: LABS CANCELLED PER NURSE DANYELLE @0602 Performed By: #### L 500.2500, L500.4100, L100.0100 #### [facility] [address] [place], [address] MCHC Normal 32-36 [facility] Comment on above: Order Comment: 411.2 Result Comment: LABS CANCELLED PER NURSE DANYELLE @0602 Performed By: #### L 500.2500, L500.4100, L100.0100 #### [facility] [address] [place], [address] MCV Normal 81-99 [facility] Comment on above: Order Comment: 411.2 Result Comment: LABS CANCELLED PER NURSE DANYELLE @0602 Performed By: #### L 500.2500, L500.4100, L100.0100 #### [facility] [facility] [address] [place], [address] NEUT% Normal 47-70 [facility] Comment on above: Order Comment: 411.2 Result Comment: LABS CANCELLED PER NURSE DANYELLE @0602 Performed By: #### L 500.2500, L500.4100, L100.0100 #### [facility] [address] [place], [address] PLT Normal 150-450 [facility] Comment on above: Order Comment: 411.2 Result Comment: LABS CANCELLED PER NURSE DANYELLE @0602 Performed By: #### L 500.2500, L500.4100, L100.0100 #### [facility] [address] [place], [address] RBC Normal 4.2-5.4 [facility] Comment on above: Order Comment: 411.2 Result Comment: LABS CANCELLED PER NURSE DANYELLE @0602 Performed By: #### L 500.2500, L500.4100, L100.0100 #### [facility] [address] [place], [address] RDW CV Normal 11.6-14.6 [facility] Comment on above: Order Comment: 411.2 Result Comment: LABS CANCELLED PER NURSE DANYELLE @0602 Performed By: #### L 500.2500, L500.4100, L100.0100 #### [facility] [address] [place], [address] RDW SD Normal 35.1-43.9 [facility] Comment on above: Order Comment: 411.2 Result Comment: LABS CANCELLED PER NURSE DANYELLE @0602 Performed By: #### L 500.2500, L500.4100, L100.0100 #### [facility] [address] [place], [address] WBC Normal 4.4-11.0 [facility] Comment on above: Order Comment: 411.2 Result Comment: LABS CANCELLED PER NURSE DANYELLE @0602 Performed By: #### L 500.2500, L500.4100, L100.0100 #### [facility] [address] [place], [address] Lipid Profileon 08-04-2024 CHOL Normal <=200 [facility] Comment on above: Order Comment: 411.2 Result Comment: LABS CANCELLED PER NURSE DANYELLE @0602 Performed By: #### L 500.2500, L500.4100, L100.0100 #### [facility] [address] [place], [address] CHOL:HDL Normal [facility] Comment on above: Order Comment: 411.2 Result Comment: LABS CANCELLED PER NURSE DANYELLE @0602 Performed By: #### L 500.2500, L500.4100, L100.0100 #### [facility] [address] [place], [address] CLDL Normal [facility] Comment on above: Order Comment: 411.2 Result Comment: LABS CANCELLED PER NURSE DANYELLE @0602 Performed By: #### L 500.2500, L500.4100, L100.0100 #### [facility] [address] [place], [address] HDL Normal [facility] Comment on above: Order Comment: 411.2 Result Comment: LABS CANCELLED PER NURSE DANYELLE @0602 Performed By: #### L 500.2500, L500.4100, L100.0100 #### [facility] [address] [place], [address] TRIG Normal [facility] Comment on above: Order Comment: 411.2 Result Comment: LABS CANCELLED PER NURSE DANYELLE @0602 Performed By: #### L 500.2500, L500.4100, L100.0100 #### [facility] [address] [place], [address] VLDL Normal 5-40 [facility] Comment on above: Order Comment: 411.2 Result Comment: LABS CANCELLED PER NURSE DANYELLE @0602 Performed By: #### L 500.2500, L500.4100, L100.0100 #### [facility] [address] [place], [address] 25(OH)D3 [facility] 2024 25-hydroxyvitamin D3 [Mass/Vol] 19.9 ng/mL Low 31.0-80.0 [facility] Comment on above: Order Comment: Speci men Type: BLOOD SPECIMEN Ordering Facility: [facility] Address: [address] [place] [address] Result Comment: Clas sification of 25 [place] Vitamin D status: Deficiency/Insufficiency: < or = 30 ng/ml. Sufficiency/Optimal Levels: 31-80 ng/mL Toxicity: > 100 ng/mL. Test performed by chemiluminescent immunoassay. Performed By: #### 1 989-3 #### [facility] CLIA [id number] [address] [place] [address] [place] CBC W Auto Differential pane l (Bld)on 08-01-2024 Basophils (Bld) [#/Vol] 0.07 10*3/uL [facility] Basophils/100 WBC (Bld) 1.1 % [facility] Differential cell count method Nom (Bld) Auto [facility] Eosinophils (Bld) [#/Vol] 0.12 10*3/uL [facility] Eosinophils/100 WBC (Bld) 1.8 % [facility] Erythrocyte distribution width (RBC) [Ratio] 13 % 11.5 - 15.0 % [facility] Hematocrit (Bld) [Volume fraction] 41.7 % 36.0 - 46.0 % [facility] Hemoglobin (Bld) [Mass/Vol] 13.5 g/dL 11.5 - 15.5 g/dL [facility] Immature granulocytes (Bld) [#/Vol] NINF [facility] Immature granulocytes/100 WBC (Bld) 0.3 % [facility] Lymphocytes (Bld) [#/Vol] 2.44 10*3/uL [facility] Lymphocytes/100 WBC (Bld) 37 % [facility] MCH (RBC) [Entitic mass] 30 pg 26. 0 - 34.0 pg [facility] MCHC (RBC) [Mass/Vol] 32.4 g/dL 30.5 - 36.0 g/dL [facility] MCV (RBC) [Entitic vol] 92.7 fL 80.0 - 100.0 fL [facility] Monocytes (Bld) [#/Vol] 0.5 10*3/uL [facility] Monocytes/100 WBC (Bld) 7.6 % [facility] Neutrophils (Bld) [#/Vol] 3.44 10*3/uL [facility] Neutrophils/100 WBC (Bld) 52.2 % [facility] Nucleated RBC (Bld) [#/Vol] [facility] Nucleated RBC/100 WBC (Bld) [Ratio] 0 % /100 WBC [facility] Platelet mean volume (Bld) [Entitic vol] 10.2 fL 9.0 - 12.7 fL [facility] Platelets (Bld) [#/Vol] 247 10*3/uL [facility] RBC (Bld) [#/Vol] 4.5 10*6/uL 3.90 - 5.2 0 m/uL [facility] WBC (Bld) [#/Vol] 6.59 10*3/uL [facility] Basophils (Bld) [#/Vol] 0.07 10*3/uL Normal <0.11 [facility] Comment on above: Order Comment: Speci men Type: BLOOD SPECIMEN Ordering Facility: [facility] Address: [address] [place] [address] Performed By: #### 2 4323-8, LIZZY, 2132-9 #### [facility] CLIA [id number] [address] [place] [address] [place] Basophils/100 WBC (Bld) 1.1 % Normal [facility] Comment on above: Order Comment: Speci men Type: BLOOD SPECIMEN Ordering Facility: [facility] Address: [address] [place] [address] Performed By: #### 2 4323-8, LIPNF, 2132-01 #### [facility] CLIA [id number] [address] [place] [address] [place] Differential cell count method Nom (Bld) Auto Normal [facility] Comment on above: Order Comment: Speci men Type: BLOOD SPECIMEN Ordering Facility: [facility] Address: [address] [place] [address] Performed By: #### 2 4323-8, LIPNF, 2132-01 #### [facility] CLIA [id number] [address] [place] [address] [place] Eosinophils (Bld) [#/Vol] 0.12 10*3/uL Normal <0.46 [facility] Comment on above: Order Comment: Speci men Type: BLOOD SPECIMEN Ordering Facility: [facility] Address: [address] [place] [address] Performed By: #### 2 4323-8, LIPNF, 2132-01 #### [facility] CLIA [id number] [address] [place] [address] [place] Eosinophils/100 WBC (Bld) 1.8 % Normal [facility] Comment on above: Order Comment: Speci men Type: BLOOD SPECIMEN Ordering Facility: [facility] Address: [address] [place] [address] Performed By: #### 2 4323-8, LIPNF, 2132-01 #### [facility] CLIA [id number] [address] [place] [address] [place] Erythrocyte distribution width (RBC) [Ratio] 13.0 % Normal 11.5-15.0 [facility] Comment on above: Order Comment: Speci men Type: BLOOD SPECIMEN Ordering Facility: [facility] Address: [address] [place] [address] Performed By: #### 2 432-8, LIPNF, 2132-01 #### [facility] CLIA [id number] [address] [place] [address] [place] Hematocrit (Bld) [Volume fraction] 41.7 % Normal 36.0-46.0 [facility] Comment on above: Order Comment: Speci men Type: BLOOD SPECIMEN Ordering Facility: [facility] Address: [address] [place] [address] Performed By: #### 2 8, LIPNF, 2132-01 #### [facility] CLIA [id number] [address] [place] [address] [place] Hemoglobin (Bld) [Mass/Vol] 13.5 g/dL Normal 11.5-15.5 [facility] Comment on above: Order Comment: Speci men Type: BLOOD SPECIMEN Ordering Facility: [facility] Address: [address] [place] [address] Performed By: #### 2 8, LIPNF, 2132-01 #### [facility] CLIA [id number] [address] [place] [address] [place] Immature granulocytes (Bld) [#/Vol] 10*3/uL Normal <0.10 [facility] Comment on above: Order Comment: Speci men Type: BLOOD SPECIMEN Ordering Facility: [facility] Address: [address] [place] [address] Performed By: #### 2 8, LIPNF, 2132-01 #### [facility] CLIA [id number] [address] [place] [address] [place] Immature granulocytes/100 WBC (Bld) 0.3 % Normal [facility] Comment on above: Order Comment: Speci men Type: BLOOD SPECIMEN Ordering Facility: [facility] Address: [address] [place] [address] Performed By: #### 2 4322-8, LIPNF, 2132-01 #### [facility] CLIA [id number] [address] [place] [address] [place] Lymphocytes (Bld) [#/Vol] 2.44 10*3/uL Normal 1.00-4.00 [facility] Comment on above: Order Comment: Speci men Type: BLOOD SPECIMEN Ordering Facility: [facility] Address: [address] [place] [address] Performed By: #### 2 432-8, LIPNF, 2132-01 #### [facility] CLIA [id number] [address] [place] [address] [place] Lymphocytes/100 WBC (Bld) 37.0 % Normal [facility] Comment on above: Order Comment: Speci men Type: BLOOD SPECIMEN Ordering Facility: [facility] Address: [address] [place] [address] Performed By: #### 2 4323-8, LIPNF, 2132-01 #### [facility] CLIA [id number] [address] [place] [address] [place] MCH (RBC) [Entitic mass] 30.0 pg Normal 26.0-34.0 [facility] Comment on above: Order Comment: Speci men Type: BLOOD SPECIMEN Ordering Facility: [facility] Address: [address] [place] [address] Performed By: #### 2 4323-8, LIPNF, 2132-01 #### [facility] CLIA [id number] [address] [place] [address] [place] MCHC (RBC) [Mass/Vol] 32.4 g/dL Normal 30.5-36.0 [facility] Comment on above: Order Comment: Speci men Type: BLOOD SPECIMEN Ordering Facility: [facility] Address: [address] [place] [address] Performed By: #### 2 4323-8, LIPNF, 2132-01 #### [facility] CLIA [id number] [address] [place] [address] [place] MCV (RBC) [Entitic vol] 92.7 fL Normal 80.0-100.0 [facility] Comment on above: Order Comment: Speci men Type: BLOOD SPECIMEN Ordering Facility: [facility] Address: [address] [place] [address] Performed By: #### 2 4323-8, LIPNF, 2132-01 #### [facility] CLIA [id number] [address] [place] [address] [place] Monocytes (Bld) [#/Vol] 0.50 10*3/uL Normal <0.87 [facility] Comment on above: Order Comment: Speci men Type: BLOOD SPECIMEN Ordering Facility: [facility] Address: [address] [place] [address] Performed By: #### 2 4323-8, LIPNF, 2132-01 #### [facility] CLIA [id number] [address] [place] [address] [place] Monocytes/100 WBC (Bld) 7.6 % Normal [facility] Comment on above: Order Comment: Speci men Type: BLOOD SPECIMEN Ordering Facility: [facility] Address: [address] [place] [address] Performed By: #### 2 4323-8, LIPNF, 2132-01 #### [facility] CLIA [id number] [address] [place] [address] [place] Neutrophils (Bld) [#/Vol] 3.44 10*3/uL Normal 1.45-7.50 [facility] Comment on above: Order Comment: Speci men Type: BLOOD SPECIMEN Ordering Facility: [facility] Address: [address] [place] [address] Performed By: #### 2 4323-8, LIPNF, 2132-01 #### [facility] CLIA [id number] [address] [place] [address] [place] Neutrophils/100 WBC (Bld) 52.2 % Normal [facility] Comment on above: Order Comment: Speci men Type: BLOOD SPECIMEN Ordering Facility: [facility] Address: [address] [place] [address] Performed By: #### 2 4323-8, LIPNF, 2132-01 #### [facility] CLIA [id number] [address] [place] [address] [place] Nucleated RBC (Bld) [#/Vol] 10*3/uL Normal <0.01 [facility] Comment on above: Order Comment: Speci men Type: BLOOD SPECIMEN Ordering Facility: [facility] Address: [address] [place] [address] Performed By: #### 2 4323-8, LIPNF, 2132-01 #### [facility] CLIA [id number] [address] [place] [address] [place] Nucleated RBC/100 WBC (Bld) [Ratio] 0.0 /100 WBC Normal [facility] Comment on above: Order Comment: Speci men Type: BLOOD SPECIMEN Ordering Facility: [facility] Address: [address] [place] [address] Performed By: #### 2 4323-8, LIPNF, 2132-01 #### [facility] CLIA [id number] [address] [place] [address] [place] Platelet mean volume (Bld) [Entitic vol] 10.2 fL Normal 9.0-12.7 [facility] Comment on above: Order Comment: Speci men Type: BLOOD SPECIMEN Ordering Facility: [facility] Address: [address] [place] [address] Performed By: #### 2 4323-8, LIPNF, 2132-01 #### [facility] CLIA [id number] [address] [place] [address] [place] Platelets (Bld) [#/Vol] 247 10*3/uL Normal 150-400 [facility] Comment on above: Order Comment: Speci men Type: BLOOD SPECIMEN Ordering Facility: [facility] Address: [address] [place] [address] Performed By: #### 2 4323-8, LIPNF, 2132-01 #### [facility] CLIA [id number] [address] [place] [address] [place] RBC (Bld) [#/Vol] 4.50 10*6/uL Normal 3.90-5.20 [facility] Comment on above: Order Comment: Speci men Type: BLOOD SPECIMEN Ordering Facility: [facility] Address: [address] [place] [address] Performed By: #### 2 4323-8, LIPNF, 2132-01 #### [facility] CLIA [id number] [address] [place] [address] [place] WBC (Bld) [#/Vol] 6.59 10*3/uL Normal 3.70-11.00 [facility] Comment on above: Order Comment: Speci men Type: BLOOD SPECIMEN Ordering Facility: [facility] Address: [address] [place] [address] Performed By: #### 2 4323-8, LIPNF, 2132-01 #### [facility] CLIA [id number] [address] [place] [address] [place] CNOVon 08-01-2024 CNOV Office Visit (INTMWS ) -------- ALEXANDER XIAO ([id number]) 1940 F Date Time Provider Department 08/01/24 2:00 PM CHRISTINA EDMONDS INTMWS During your visit today, we recorded the following information about you: Pulse Blood pressure Weight Height 80/minute 120/68 66.8 kg 1.73 m Christina Edmonds APRN.CNP 08/01/2024 2:44 PM Signed Alexander Xiao is a 83 year old female here for a Medicare wellness visit. Medicare Health Risk Assessment General Health Okay Exercise: Minutes/Day No regular routine Exercise: Days/Week No regular routine Alcohol: Daily Use N/a Alcohol: Drinks/Day N/a Alcohol: 6 or more drinks N/a Feel off balance No Concerns: Teeth/Dentures No Concerns: Sexual function No Troubled by feelings Sometimes Frequency: Eating healthy diet Likes [employer] ADLs requiring help Yes Safety precautions in home/vehicle Yes Smoke, vape, chews tobacco No Difficulty hearing No Difficulty seeing No Current Providers Specialists: I have reviewed specialist-related care of the patient in the medical record. Current care team: Patient Care Team: Christina Edmonds APRN.CNP as PCP - General (Internal Medicine) Dr. Jenkins for geriatrics Dr. Ortiz for podiatry Medical/Family history review Reviewed and updated problem list, medical/surgical/family/ social history, medications, and allergies. Opioid use review Opioid Medications (last 90 days) No data to display Anxiety/Depression screening Recommendation: continuing current treatment plan Cognitive screening Cognitive screening reviewed and Patient has known cognitive impairment. Functional Observation Was the patient's Timed Up AND Go test unsteady or >= 12 seconds? No Advance Care Planning Surrogate decision maker and/or advance care plan documented Measurements BP 120/68 Pulse 80 Ht 173 cm (5' 8.11") Wt 66.8 kg (147 lb 4.3 oz) SpO2 98% BMI 22.32 kg/m? Vision Screening: Declines visual acuity screen SUBJECTIVE Alexander Xiao is a 83 year old female here today for a check up on her medical problems. Chief Complaint Patient presents with: Medicare Wellness Exam: only concern is memory worsening getting lost having trouble finding home and then looking for Robert who is currently in rehab HPI Alexander is a 83-year-old female, with a history of memory issues, presenting for follow-up. Accompanied by her niece and nephew. Alexander was last seen on 03/14 and had a follow-up with Dr. Jenkins with geriatrics on 04/26 to address dementia. Since then, she has been working on increasing water intake and ensuring medication adherence. She continues to experience memory difficulties and relies on writing things down to remember tasks and events and care from her . Her , Robert, recently underwent surgery and is currently in rehabilitation at [facility], which has been a significant adjustment for her. Family has spoke with admissions there and has been able to arrange for her to go to [facility] for respite care and stay in a room with Robert. Alexander had a skin tear on her leg after sliding out of her [id number] truck. The wound is reportedly improving and is not causing pain. She has been using bacitracin ointment for the wound. She has a history of low B12 and vitamin D levels. She had breakfast around 1030 today and has not yet had lunch. The patient/family consented to the use of Nu[employer] software for draft documentation of the visit consistent with [facility]?s Notice of Privacy Practices. Her medications were reviewed today and her list is now up to date. Medications Current Outpatient Medications Medication Sig busPIRone (BUSPAR) 5 mg tablet Take 1 tablet by mouth two times a day. cyanocobalamin 1,000 mcg/mL Inject 1 mL intramuscularly one time a week. donepezil (ARICEPT) 10 mg tablet Take 1 tablet by mouth daily at bedtime. metFORMIN (GLUCOPHAGE) 500 mg tablet Take 2 tablets by mouth daily with breakfast AND 1 tablet daily with dinner. QUEtiapine (SEROQUEL) 50 mg tablet Take 1 tablet by mouth daily at bedtime. levothyroxine (SYNTHROID) 112 mcg tablet Take 1 tablet by mouth once daily. For 6 days of the week. melatonin 10 mg tab Take 1 tablet by mouth daily at bedtime. simvastatin (ZOCOR) 40 mg tablet Take 1 tablet by mouth daily at bedtime. Underpads 30 X 30 " pads 1 Each once daily. 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 Normal [facility] Comprehensive metabolic 2000 panelon 08-01-2024 Albumin [Mass/Vol] 4.4 g/dL Normal 3.9-4.9 [facility] Comment on above: Order Comment: Speci men Type: BLOOD SPECIMEN Ordering Facility: [facility] Address: [address] [place] [address] Performed By: #### 2 4323-8, LIPNF, 2132-01 #### [facility] CLIA [id number] [address] [place] [address] [place] ALP [Catalytic activity/Vol] 63 U/L Normal 34-123 [facility] Comment on above: Order Comment: Speci men Type: BLOOD SPECIMEN Ordering Facility: [facility] Address: [address] [place] [address] Performed By: #### 2 4323-8, LIPNF, 2132-01 #### [facility] CLIA [id number] [address] [place] [address] [place] ALT [Catalytic activity/Vol] 18 U/L Normal 7-38 [facility] Comment on above: Order Comment: Speci men Type: BLOOD SPECIMEN Ordering Facility: [facility] Address: [address] [place] [address] Performed By: #### 2 4323-8, LIPNF, 2132-01 #### [facility] CLIA [id number] [address] [place] [address] [place] Anion gap [Moles/Vol] 14 mmol/L Normal 8-15 [facility] Comment on above: Order Comment: Speci men Type: BLOOD SPECIMEN Ordering Facility: [facility] Address: [address] [place] [address] Performed By: #### 2 4323-8, LIPNF, 2132-01 #### [facility] CLIA [id number] [address] [place] [address] [place] AST [Catalytic activity/Vol] 24 U/L Normal 13-35 [facility] Comment on above: Order Comment: Speci men Type: BLOOD SPECIMEN Ordering Facility: [facility] Address: [address] [place] [address] Performed By: #### 2 4323-8, LIPNF, 2132-01 #### [facility] CLIA [id number] [address] [place] [address] [place] Bilirubin [Mass/Vol] 0.7 mg/dL Normal 0.2-1.3 [facility] Comment on above: Order Comment: Speci men Type: BLOOD SPECIMEN Ordering Facility: [facility] Address: [address] [place] [address] Performed By: #### 2 4323-8, LIPNF, 2132-01 #### [facility] CLIA [id number] [address] [place] [address] [place] Calcium [Mass/Vol] 10.2 mg/dL Normal 8.5-10.2 [facility] Comment on above: Order Comment: Speci men Type: BLOOD SPECIMEN Ordering Facility: [facility] Address: [address] [place] [address] Performed By: #### 2 4323-8, LIPNF, 2132-01 #### [facility] CLIA [id number] [address] [place] [address] [place] Chloride [Moles/Vol] 102 mmol/L Normal 98-107 [facility] Comment on above: Order Comment: Speci men Type: BLOOD SPECIMEN Ordering Facility: [facility] Address: [address] [place] [address] Performed By: #### 2 4323-8, LIPNF, 2132-01 #### [facility] CLIA [id number] [address] [place] [address] [place] CO2 [Moles/Vol] 25 mmol/L Normal 22-30 [facility] Comment on above: Order Comment: Speci men Type: BLOOD SPECIMEN Ordering Facility: [facility] Address: [address] [place] [address] Performed By: #### 2 4323-8, LIZZY, 2132-01 #### [facility] CLIA [id number] [address] [place] [address] [place] Creatinine [Mass/Vol] 0.76 mg/dL Normal 0.58-0.96 [facility] Comment on above: Order Comment: Speci men Type: BLOOD SPECIMEN Ordering Facility: [facility] Address: [address] [place] [address] Performed By: #### 2 4323-8, LIZZY, 2132-01 #### [facility] CLIA [id number] [address] [place] [address] [place] Creatinine and Glomerular filtration rate.predicted panel (S/P/Bld) 78 mL/min/1.73m??? Normal >=60 [facility] Comment on above: Order Comment: Jourdan rodas Type: BLOOD SPECIMEN Ordering Facility: [facility] Address: [address] [place] [address] Result Comment: Laura mated Glomerular Filtration Rate (eGFR) is calculated using the 2020 CKD-EPI creatinine equation. This equation utilizes serum creatinine, sex, and age as parameters. The creatinine assay has traceable calibration to isotope dilution-mass spectrometry. Refer to KDIGO guidelines for clinical interpretation. In patients with unstable renal function, e.g. those with acute kidney injury, the eGFR may not accurately reflect actual GFR. Performed By: #### 2 4323-8, LIZZY, 2132-01 #### [facility] CLIA [id number] [address] [place] [address] [place] Glucose [Mass/Vol] 160 mg/dL High 74-99 [facility] Comment on above: Order Comment: Manniei men Type: BLOOD SPECIMEN Ordering Facility: [facility] Address: [address] [place] [address] Result Comment: The [place] Diabetes Association (ADA) provides guidance for cutoff values for fasting glucose and random glucose. The ADA defines fasting as no caloric intake for at least 8 hours. Fasting plasma glucose results between 100 to 125 mg/dL indicate increased risk for diabetes (prediabetes). Fasting plasma glucose results greater than or equal to 126 mg/dL meet the criteria for diagnosis of diabetes. In the absence of unequivocal hyperglycemia, results should be confirmed by repeat testing. In a patient with classic symptoms of hyperglycemia or hyperglycemic crisis, random plasma glucose results greater than or equal to 200 mg/dL meet the criteria for diagnosis of diabetes. Reference: Standards of Medical Care in Diabetes 2016, [place] Diabetes Association. Diabetes Care. 2016.39(Suppl 1). Performed By: #### 2 4323-8, LIPNF, 2132-01 #### [facility] CLIA [id number] [address] [place] [address] [place] Potassium [Moles/Vol] 4.3 mmol/L Normal 3.7-5.1 [facility] Comment on above: Order Comment: Speci men Type: BLOOD SPECIMEN Ordering Facility: [facility] Address: [address] [place] [address] Performed By: #### 2 4323-8, LIPNF, 2132-01 #### [facility] CLIA [id number] [address] [place] [address] [place] Protein [Mass/Vol] 6.9 g/dL Normal 6.3-8.0 [facility] Comment on above: Order Comment: Speci men Type: BLOOD SPECIMEN Ordering Facility: [facility] Address: [address] [place] [address] Performed By: #### 2 4323-8, LIPNF, 2132-01 #### [facility] CLIA [id number] [address] [place] [address] [place] Sodium [Moles/Vol] 141 mmol/L Normal 136-144 [facility] Comment on above: Order Comment: Speci men Type: BLOOD SPECIMEN Ordering Facility: [facility] Address: [address] [place] [address] Performed By: #### 2 432-8, LIPJENNIFER, 2132-01 #### [facility] CLIA [id number] [address] [place] [address] [place] Urea nitrogen [Mass/Vol] 12 mg/dL Normal 7-21 [facility] Comment on above: Order Comment: Speci men Type: BLOOD SPECIMEN Ordering Facility: [facility] Address: [address] [place] [address] Performed By: #### 2 432-8, LIPJENNIFER, 2132-01 #### [facility] CLIA [id number] [address] [place] [address] [place] HbA1c (Bld)on 08-01-2024 Average glucose Estimated from glycated hemoglobin (Bld) [Mass/Vol] 194 mg/dL Normal [facility] Comment on above: Order Comment: Speci men Type: BLOOD SPECIMEN Ordering Facility: [facility] Address: [address] [place] [address] Result Comment: eAG: (Estimated average glucose) is a calculated value from HgbA1c and is inventory representative of the average blood glucose level in the last 2-3 month period. Performed By: #### 2 432-8, LIPJENNIFER, 2132-01 #### [facility] CLIA [id number] [address] [place] [address] [place] HbA1c (Bld) [Mass fraction] 8.4 % High 4.3-5.6 [facility] Comment on above: Order Comment: Speci men Type: BLOOD SPECIMEN Ordering Facility: [facility] Address: [address] [place] [address] Result Comment: [place] Diabetes Association guidelines indicate that patients with HgbA1c in the range 5.7-6.4% are at increased risk for development of diabetes, and intervention by lifestyle modification may be beneficial. HgbA1c greater or equal to 6.5% is considered diagnostic of diabetes. Performed By: #### 2 4323-8, LIPNF, 2132-01 #### [facility] CLIA [id number] [address] [facility] LIPID PANEL, NONFASTINGon Cholesterol [Mass/Vol] 161 mg/dL Normal <200 [facility] Comment on above: Order Comment: Speci adrianna Type: BLOOD SPECIMEN Ordering Facility: [facility] Address: [address] [place] [address] Result Comment: <200 mg/dL, Desirable 200-239 mg/dL, Borderline high >239 mg/dL, High Performed By: #### 2 4323-8, LIPNF, 2132-01 #### [facility] CLIA [id number] [address] [place] [address] [place] HDL CHOLESTEROL, NF 69 mg/dL Normal >39 [facility] Comment on above: Order Comment: Jourdan adrianna Type: BLOOD SPECIMEN Ordering Facility: [facility] Address: [address] [place] [address] Result Comment: 40-5 9 mg/dL, Acceptable >59 mg/dL, High: Negative risk factor for coronary heart disease <40 mg/dL, Low: Positive risk factor for coronary heart disease Performed By: #### 2 4323-8, LIPNF, 2132-01 #### [facility] CLIA [id number] [address] [place] [address] [place] LDL CHOLESTEROL, NF 60 mg/dL Normal <100 [facility] Comment on above: Order Comment: Speci men Type: BLOOD SPECIMEN Ordering Facility: [facility] Address: [address] [place] [address] Result Comment: <100 mg/dL, Optimal 100-129 mg/dL, Near optimal/above optimal 130-159 mg/dL, Borderline high 160-189 mg/dL, High >189 mg/dL, Very high Secondary prevention optimal LDL Cholesterol levels are recommended to be < 70 mg/dL Performed By: #### 2 4323-8, LIPNF, 2132-01 #### [facility] CLIA [id number] [address] [place] [id number] [address] [place] LDL/HDL RATIO, NF 0.87 mg/dL Normal <2.54 [facility] Comment on above: Order Comment: Jourdan rodas Type: BLOOD SPECIMEN Ordering Facility: [facility] Address: [address] [place] [address] Result Comment: Sherly majanoce: 1. National Cholesterol Education Program ATP III Guideline At-A-Glance Quick Desk Reference: National Heart, Lung, and Blood [place]. National Institutes of Health. 2001: NIH Publication No. 01-3305. 2. An International Atherosclerosis Society position paper: global recommendations for the management of dyslipidemia: executive summary, Atherosclerosis. 2014: 232(2):410-413. Performed By: #### 2 4323-8, LIPNF, 2132-01 #### [facility] CLIA [id number] [address] [place] [address] [place] NON HDL CHOL, NF 92 mg/dL Normal <130 [facility] Comment on above: Order Comment: Jourdan rodas Type: BLOOD SPECIMEN Ordering Facility: [facility] Address: [address] [place] [address] Result Comment: <130 mg/dL, Optimal 130-159 mg/dL, Near optimal/above optimal 160-189 mg/dL, Borderline high 190-219 mg/dL, High >219 mg/dL, Very high Secondary prevention optimal non HDL Cholesterol levels are recommended to be <100 mg/dL Performed By: #### 2 4323-8, LIPNF, 2132-01 #### [facility] CLIA [id number] [address] [place] [address] [place] T CHOL/HDL RATIO NF 2.33 mg/dL Normal <5.10 [facility] Comment on above: Order Comment: Jourdan rodas Type: BLOOD SPECIMEN Ordering Facility: [facility] Address: [address] [place] [address] Performed By: #### 2 4323-8, LIPNF, 2132-01 #### [facility] CLIA [id number] [address] [place] [id number] [address] [place] TRIGLYCERIDES, NF 159 mg/dL High <150 [facility] Comment on above: Order Comment: Speci men Type: BLOOD SPECIMEN Ordering Facility: [facility] Address: [address] [place] [address] Result Comment: <150 mg/dL, Normal 150-199 mg/dL, Borderline high 200-499 mg/dL, High >499 mg/dL, Very high Performed By: #### 2 4323-8, LIPJENNIFER, 2132-01 #### [facility] CLIA [id number] [address] [place] [address] [place] VLDL CHOLESTEROL, NF 32 mg/dL High <30 [facility] Comment on above: Order Comment: Speci men Type: BLOOD SPECIMEN Ordering Facility: [facility] Address: [address] [place] [address] Performed By: #### 2 4323-8, LIPJENNIFER, 2132-01 #### [facility] CLIA [id number] [address] [place] [address] [place] Vit B12 [facility] 03-25-2 025 Cobalamin (Vitamin B12) [Mass/Vol] 247 pg/mL Normal 232-1245 [facility] Comment on above: Order Comment: Speci men Type: BLOOD SPECIMEN Ordering Facility: [facility] Address: [address] [place] [address] Performed By: #### 2 4323-8, LIPJENNIFER, 2132-01 #### [facility] CLIA [id number] [address] [place] [address] [place] CNPZainab 07-28-2024 RANDIN Telephone (INTMWS) -------- ALEXANDER XIAO ([id number]) 1940 F Date Time Provider Department 07/28/24 CHRISTINA EDMONDS During your visit today, we recorded the following information about you: Sunita Ocampo LPN 07/28/2024 1:23 PM Signed Patient niece Diann Negrete calling she has started the process of having her aunt admitted to [facility]. She said needed letter and copy of last office notes from 03/2024 signed. Advised [facility] usually needs a more recent office visit note and admission orders completed. She said has appt scheduled for end july with Christina. Tamara Michelle, OWEN 07/31/2024 12:09 PM Signed Ruby with [facility] calls to request most recent OV note and med list for respite stay at [facility]. Faxed to [phone] per request. Ruby aware that it is from 03/2024 but wanted it any ways to get the process started aware that patient has appt on 08/07/2024. Ruby also reports that patient will need an order that provider agrees with respite stay. Tamara Michelle RN Allergies As of Date: 07/28/2024 (No Known Allergies) Date Reviewed: 07/19/2024 Reviewed by: Senait Vieira LPN - Fully Assessed Reason for Visit: Patient Update [1234] process began to get her admitted to [facility] [Other] Prescriptions as of 08/01/2024 - busPIRone (BUSPAR) 5 mg tablet Take 1 tablet by mouth two times a day. - cyanocobalamin 1,000 mcg/mL Inject 1 mL intramuscularly one time a week. - donepezil (ARICEPT) 10 mg tablet Take 1 tablet by mouth daily at bedtime. - metFORMIN (GLUCOPHAGE) 500 mg tablet Take 2 tablets by mouth daily with breakfast AND 1 tablet daily with dinner. - QUEtiapine (SEROQUEL) 50 mg tablet Take 1 tablet by mouth daily at bedtime. - levothyroxine (SYNTHROID) 112 mcg tablet Take 1 tablet by mouth once daily. For 6 days of the week. - melatonin 10 mg tab Take 1 tablet by mouth daily at bedtime. - simvastatin (ZOCOR) 40 mg tablet Take 1 tablet by mouth daily at bedtime. - Underpads 30 X 30 " pads 1 Each once daily. 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 Corey Ho, RN 07/24/2024 2:52 PM Signed Called and spoke with pharmacist at [facility]. She asked if pt was taking her Levothyroxine 6 days a week or 7 days a week. Assuming 6 per sig instructions. Pharmacist states if pt is taking it 6, then pt has refills. If she is taking it 7, she does not. When questioned, pharmacist then says pt has refills and she will get one ready for her. Attempted to call pt several times with no answer. has same phone number so unable to leave [facility]. Will assume pt will check with pharmacy so closing encounter. Allergies As of Date: 07/24/2024 (No Known Allergies) Date Reviewed: 07/19/2024 Reviewed by: Senait Vieira LPN - Fully Assessed Reason for Visit: Medication Problem [65] Prescriptions as of 07/24/2024 - cephALEXin (KEFLEX) 500 mg capsule Take 1 capsule by mouth two times a day for 5 days. - bacitracin 500 unit/gram ointment Apply to affected area two times a day for 5 days. - busPIRone (BUSPAR) 5 mg tablet Take 1 tablet by mouth two times a day. - cyanocobalamin 1,000 mcg/mL Inject 1 mL intramuscularly one time a week. - donepezil (ARICEPT) 10 mg tablet Take 1 tablet by mouth daily at bedtime. - metFORMIN (GLUCOPHAGE) 500 mg tablet Take 2 tablets by mouth daily with breakfast AND 1 tablet daily with dinner. - QUEtiapine (SEROQUEL) 50 mg tablet Take 1 tablet by mouth daily at bedtime. - levothyroxine (SYNTHROID) 112 mcg tablet Take 1 tablet by mouth once daily. For 6 days of the week. - melatonin 10 mg tab Take 1 tablet by mouth daily at bedtime. - simvastatin (ZOCOR) 40 mg tablet Take 1 tablet by mouth daily at bedtime. - Underpads 30 X 30 " pads 1 Each once daily. 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 HPI Alexander Xiao is a 83 year old female who presents today for CC of right leg injury. This started 1.5 hours ago. Has tried cleaning at home. Last tetanus 2023. .Patient presents with: scrape on lower right leg: X 1.5 hours PAST MEDICAL HISTORY Diagnosis Date DM (diabetes mellitus) (HCC) Endometrial cancer (HCC) History of endometrial cancer 2000 with [...] ALLERGIES Patient has no known allergies. MEDICATIONS cephALEXin (KEFLEX) 500 mg capsuleTake 1 capsule by mouth two times a day for 5 days.Disp: 10 capsuleRfl: 0 bacitracin 500 unit/gram ointmentApply to affected area two times a day for 5 days.Disp: 14 gRfl: 1 busPIRone (BUSPAR) 5 mg tabletTake 1 tablet by mouth two times a day.Disp: 60 tabletRfl: 2 cyanocobalamin 1,000 mcg/mLInject 1 mL intramuscularly one time a week.Disp: 51 mLRfl: 0 donepezil (ARICEPT) 10 mg tabletTake 1 tablet by mouth daily at bedtime.Disp: 90 tabletRfl: 3 metFORMIN (GLUCOPHAGE) 500 mg tabletTake 2 tablets by mouth daily with breakfast AND 1 tablet daily with dinner.Disp: Rfl: QUEtiapine (SEROQUEL) 50 mg tabletTake 1 tablet by mouth daily at bedtime.Disp: 30 tabletRfl: 5 levothyroxine (SYNTHROID) 112 mcg tabletTake 1 tablet by mouth once daily. For 6 days of the week.Disp: 90 tabletRfl: 3 melatonin 10 mg tabTake 1 tablet by mouth daily at bedtime.Disp: 90 tabletRfl: 1 simvastatin (ZOCOR) 40 mg tabletTake 1 tablet by mouth daily at bedtime.Disp: 90 tabletRfl: 3 Underpads 30 X 30 " pads1 Each once daily.Disp: 100 EachRfl: 3 FAMILY HISTORY Problem Relation Age of Onset other (colon polyps [Other]) Father Diabetes Father Breast Cancer Mother 62 other (Other [Other]) Sister some type of uterine issue (not sure if cancer) None Brother None Brother Social History Tobacco Use Smoking status: Never Smokeless tobacco: Never Vaping Use Vaping status: Never Used Substance Use Topics Alcohol use: Never Drug use: Never Patient presents with: scrape on lower right leg: X 1.5 hours HPI Review of Systems Objective BP 122/80 Pulse 69 Temp 36.9 ?C (98.5 ?F) (Tympanic) Resp 18 Wt 68.4 kg (150 lb 12.7 oz) SpO2 97% BMI 22.93 kg/m? Physical Exam Constitutional: General: She is not in acute distress. Appearance: She is not toxic-appearing or diaphoretic. HENT: Head: Normocephalic and atraumatic. Pulmonary: Effort: Pulmonary effort is normal. No accessory muscle usage or respiratory distress. Skin: Neurological: Mental Status: She is alert and oriented to person, place, and time. ASSESSMENT/PLAN: 1. Skin tear of lower leg without complication, initial encounter - ICD9: 891.0, ICD10: S81.819A Site cleansed and redressed Prophylactic atb ordered Clean with soap/water daily F/u for s/s infection - CEPHALEXIN 500 MG CAPSULE - BACITRACIN 500 UNIT/GRAM TOPICAL OINTMENT Gemma Saeed APRN.KILN WORKER MDM Procedures Allergies As of Date: 07/19/2024 (No Known Allergies) Date Reviewed: 07/19/2024 Reviewed by: Senait Vieira LPN - Fully Assessed Reason for Visit: scrape on lower right leg [Other] Cmt: X 1.5 hours Primary Visit Diagnosis:Skin tear of lower leg without complication, initial encounter [K17.191W] Order(s):cephALEXin (KEFLEX) 500 mg capsuleTake 1 capsule by mouth two times a day for 5 days.Disp: 10 capsuleRfl: 0 bacitracin 500 unit/gram ointmentApply to affected area two times a day for 5 days.Disp: 14 gRfl: 1 Prescriptions as of 07/19/2024 - cephALEXin (KEFLEX) 500 mg capsule Take 1 capsule by mouth two times a day for 5 days. - bacitracin 500 unit/gram ointment Apply to affected area two times a day for 5 days. - busPIRone (BUSPAR) 5 mg tablet Take 1 tablet by mouth two times a day. - cyanocobalamin 1,000 mcg/mL Inject 1 mL intramuscularly one time a week. - donepe (more content not included)... Normal [facility]2024 [facility] (INTMWS) -------- ALEXANDER XIAO ([id number]) 1940 F Date Time Provider Department 05/23/24 JOSE JENKINS INTWS During your visit today, we recorded the following information about you: Allergies As of Date: 05/23/2024 (No Known Allergies) Date Reviewed: 04/26/2024 Reviewed by: Teresa Spence MA - Fully Assessed Prescriptions as of 07/18/2024 - busPIRone (BUSPAR) 5 mg tablet Take 1 tablet by mouth two times a day. - cyanocobalamin 1,000 mcg/mL Inject 1 mL intramuscularly one time a week. - donepezil (ARICEPT) 10 mg tablet Take 1 tablet by mouth daily at bedtime. - metFORMIN (GLUCOPHAGE) 500 mg tablet Take 2 tablets by mouth daily with breakfast AND 1 tablet daily with dinner. - QUEtiapine (SEROQUEL) 50 mg tablet Take 1 tablet by mouth daily at bedtime. - levothyroxine (SYNTHROID) 112 mcg tablet Take 1 tablet by mouth once daily. For 6 days of the week. - melatonin 10 mg tab Take 1 tablet by mouth daily at bedtime. - simvastatin (ZOCOR) 40 mg tablet Take 1 tablet by mouth daily at bedtime. - Underpads 30 X 30 " pads 1 Each once daily. 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 Denies any problems at this time. Patient instructed on any SE of medication, verbalized understanding and agreed to proceed with treatment. Tolerated injection well. Kiley Tavarez LPN Allergies As of Date: 05/17/2024 (No Known Allergies) Date Reviewed: 04/26/2024 Reviewed by: Teresa Spence MA - Fully Assessed Reason for Visit: B-12 Injection [247] Primary Visit Diagnosis:Vitamin B 12 deficiency [E53.8] Prescriptions as of 05/17/2024 - busPIRone (BUSPAR) 5 mg tablet Take 1 tablet by mouth two times a day. - cyanocobalamin 1,000 mcg/mL Inject 1 mL intramuscularly one time a week. - donepezil (ARICEPT) 10 mg tablet Take 1 tablet by mouth daily at bedtime. - metFORMIN (GLUCOPHAGE) 500 mg tablet Take 2 tablets by mouth daily with breakfast AND 1 tablet daily with dinner. - QUEtiapine (SEROQUEL) 50 mg tablet Take 1 tablet by mouth daily at bedtime. - levothyroxine (SYNTHROID) 112 mcg tablet Take 1 tablet by mouth once daily. For 6 days of the week. - melatonin 10 mg tab Take 1 tablet by mouth daily at bedtime. - simvastatin (ZOCOR) 40 mg tablet Take 1 tablet by mouth daily at bedtime. - Underpads 30 X 30 " pads 1 Each once daily. 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 Denies any problems at this time. Patient instructed on any SE of medication, verbalized understanding and agreed to proceed with treatment. Tolerated injection well. Kiley Tavarez LPN Allergies As of Date: 05/08/2024 (No Known Allergies) Date Reviewed: 04/26/2024 Reviewed by: Teresa Spence MA - Fully Assessed Reason for Visit: B-12 Injection [247] Primary Visit Diagnosis:Vitamin B 12 deficiency [E53.8] Prescriptions as of 05/08/2024 - cyanocobalamin 1,000 mcg/mL Inject 1 mL intramuscularly one time a week. - donepezil (ARICEPT) 10 mg tablet Take 1 tablet by mouth daily at bedtime. - metFORMIN (GLUCOPHAGE) 500 mg tablet Take 2 tablets by mouth daily with breakfast AND 1 tablet daily with dinner. - QUEtiapine (SEROQUEL) 50 mg tablet Take 1 tablet by mouth daily at bedtime. - levothyroxine (SYNTHROID) 112 mcg tablet Take 1 tablet by mouth once daily. For 6 days of the week. - melatonin 10 mg tab Take 1 tablet by mouth daily at bedtime. - busPIRone (BUSPAR) 5 mg tablet Take 1 tablet by mouth two times a day. - simvastatin (ZOCOR) 40 mg tablet Take 1 tablet by mouth daily at bedtime. - Underpads 30 X 30 " pads 1 Each once daily. 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 Denies any problems at this time. Patient instructed on any SE of medication, verbalized understanding and agreed to proceed with treatment. Tolerated injection well. Kiley Tavarez LPN Allergies As of Date: 05/01/2024 (No Known Allergies) Date Reviewed: 04/26/2024 Reviewed by: Teresa Spence MA - Fully Assessed Reason for Visit: B-12 Injection [247] Primary Visit Diagnosis:Vitamin B 12 deficiency [E53.8] Prescriptions as of 05/01/2024 - cyanocobalamin 1,000 mcg/mL Inject 1 mL intramuscularly one time a week. - donepezil (ARICEPT) 10 mg tablet Take 1 tablet by mouth daily at bedtime. - metFORMIN (GLUCOPHAGE) 500 mg tablet Take 2 tablets by mouth daily with breakfast AND 1 tablet daily with dinner. - QUEtiapine (SEROQUEL) 50 mg tablet Take 1 tablet by mouth daily at bedtime. - levothyroxine (SYNTHROID) 112 mcg tablet Take 1 tablet by mouth once daily. For 6 days of the week. - melatonin 10 mg tab Take 1 tablet by mouth daily at bedtime. - busPIRone (BUSPAR) 5 mg tablet Take 1 tablet by mouth two times a day. - simvastatin (ZOCOR) 40 mg tablet Take 1 tablet by mouth daily at bedtime. - Underpads 30 X 30 " pads 1 Each once daily. 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 order at this time. Kiley Tavarez LPN Allergies As of Date: 04/27/2024 (No Known Allergies) Date Reviewed: 04/26/2024 Reviewed by: Teresa Spence MA - Fully Assessed Reason for Visit: Orders [681] Primary Visit Diagnosis:Vitamin B 12 deficiency [E53.8] Order(s):[START ON 05/01/2024] cyanocobalamin 1,000 mcg injectionDisp: Rfl: [START ON 06/22/2024] cyanocobalamin 1,000 mcg injectionDisp: Rfl: Prescriptions as of 04/28/2024 - cyanocobalamin 1,000 mcg/mL Inject 1 mL intramuscularly one time a week. - donepezil (ARICEPT) 10 mg tablet Take 1 tablet by mouth daily at bedtime. - metFORMIN (GLUCOPHAGE) 500 mg tablet Take 2 tablets by mouth daily with breakfast AND 1 tablet daily with dinner. - QUEtiapine (SEROQUEL) 50 mg tablet Take 1 tablet by mouth daily at bedtime. - levothyroxine (SYNTHROID) 112 mcg tablet Take 1 tablet by mouth once daily. For 6 days of the week. - melatonin 10 mg tab Take 1 tablet by mouth daily at bedtime. - busPIRone (BUSPAR) 5 mg tablet Take 1 tablet by mouth two times a day. - simvastatin (ZOCOR) 40 mg tablet Take 1 tablet by mouth daily at bedtime. - Underpads 30 X 30 " pads 1 Each once daily. 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 Could be causing some of the dementia but may not all Would like for her to take vit b12 injections. I will place that order, please 1000 mcg weekly for 4 weeks and then months Jose Jean-Baptiste MD, Barbara, RN 04/27/2024 1:37 PM Signed Called and left a voicemail for the patient to call back and ask for a nurse to receive the providers message. Herman Marino RN 04/27/2024 1:59 PM Signed returned call and given provider's message below with verbalized understanding. spoke with patient and states she is agreeable. Scheduled the 4 weekly B12 inj with nurse. Pt understands after the 4 weekly shots she will go to monthly shots. Allergies As of Date: 04/27/2024 (No Known Allergies) Date Reviewed: 04/26/2024 Reviewed by: Teresa Spence MA - Fully Assessed Reason for Visit: Results [95] Primary Visit Diagnosis:Vitamin B12 deficiency [E53.8] Order(s):cyanocobalamin 1,000 mcg/mLInject 1 mL intramuscularly one time a week.Disp: 51 mLRfl: 0 Prescriptions as of 04/27/2024 - cyanocobalamin 1,000 mcg/mL Inject 1 mL intramuscularly one time a week. - donepezil (ARICEPT) 10 mg tablet Take 1 tablet by mouth daily at bedtime. - metFORMIN (GLUCOPHAGE) 500 mg tablet Take 2 tablets by mouth daily with breakfast AND 1 tablet daily with dinner. - QUEtiapine (SEROQUEL) 50 mg tablet Take 1 tablet by mouth daily at bedtime. - levothyroxine (SYNTHROID) 112 mcg tablet Take 1 tablet by mouth once daily. For 6 days of the week. - melatonin 10 mg tab Take 1 tablet by mouth daily at bedtime. - busPIRone (BUSPAR) 5 mg tablet Take 1 tablet by mouth two times a day. - simvastatin (ZOCOR) 40 mg tablet Take 1 tablet by mouth daily at bedtime. - Underpads 30 X 30 " pads 1 Each once daily. 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 Encounter Status:Closed by Herman MARINO on 04/27/24 Normal [facility] CNOVon 04-26-2024 CNOV Office Visit (GERIWR ) -------- ALEXANDER XIAO ([id number]) 1940 F Date Time Provider Department 04/26/24 2:30 PM JOSE JENKINS During your visit today, we recorded the following information about you: Pulse Respiration Blood pressure Weight Normal [facility] Vit B12 [facility] 024 Cobalamin (Vitamin B12) [Mass/Vol] 169 pg/mL Low 232-1245 [facility] Comment on above: Order Comment: Speci men Type: BLOOD SPECIMEN Ordering Facility: [facility] Address: [address] [place] [address] Performed By: #### 2 [id number], LIZZY, 2132-9 #### [facility] CLIA [id number] [address] [place] [address] STATES OF [facility] CNOVon 04-25-2024 CNOV Office Visit (PODIWS ) -------- ALEXANDER XIAO ([id number]) 1940 F Date Time Provider Department 04/25/24 1:00 PM DAGMAR ORTIZ During your visit today, we recorded the following information about you: Loraine Santiago LPN 04/25/2024 1:45 PM Signed AMB ROOMING INTAKE FLOWSHEET DATA Patient presents with: Left Foot - Established Patient, Follow Up, Diabetic Foot Care Right Foot - Established Patient, Follow Up, Diabetic Foot Care TOSHA Carrera Matthew 04/25/2024 1:45 PM Signed Subjective: Patient presents to clinic c/o painful toenails. They state that the nails are especially painful with shoe gear and pressure. Patient states that nails 1-5 b/l are painful. Patient is borderline diabetic. No other pedal complaints at this time. Patient states no change in medications or medical history since last visit. Objective: [facility] V[facility]: DP and PT pulses are palpable bilateral. CFT is less than 5 seconds bilateral. Skin temperature is warm to cool proximal to distal bilateral. There is minimal edema or varicosities noted. Neuro: Protective sensation is intact to the foot and toes when tested with the 5.07 SWM bilateral. Vibratory sensation is decreased at the hallux IPJ bilateral. The hallux is downgoing bilateral. Derm: Nails 1-5 b/l are painful, discolored-yellow, thick, crumbly, dystrophic and with subungal debris. Skin is dry, cool and hair growth is absent bilateral. There are no hyperkeratosis, ulcerations, scars, verruca or other lesions noted. Ortho: Muscle strength is 5/5 for all pedal groups tested. Ankle joint DF is decreased with the knee extended with no pain or crepitus noted. 1st MPJ ROM is decreased bilateral. Assessment: (B35.1) Onychomycosis (primary encounter diagnosis) (M79.675) Pain in toe of left foot (M79.674) Pain in toe of right foot Plan: Patient was seen and evaluated. Nails 1-5 bilateral were debrided in length and thickness. Patient is to RTC in 3-4 months. Dagmar Ortiz DPM Referring Provider: DAGMAR ORTIZ [[id number]] Allergies As of Date: 04/25/2024 (No Known Allergies) Date Reviewed: 04/25/2024 Reviewed by: Loraine Santiago LPN - Fully Assessed Reason for Visit: Established Patient [175] Follow Up [171] Diabetic Foot Care [916] Established Patient [175] Follow Up [171] Diabetic Foot Care [916] Primary Visit Diagnosis:Onychomycosis [B35.1] Other Visit Diagnoses:Pain in toe of left foot [M79.675] Pain in toe of right foot [M79.674] Prescriptions as of 04/25/2024 - donepezil (ARICEPT) 10 mg tablet Take 1 tablet by mouth daily at bedtime. - metFORMIN (GLUCOPHAGE) 500 mg tablet Take 2 tablets by mouth daily with breakfast AND 1 tablet daily with dinner. - QUEtiapine (SEROQUEL) 50 mg tablet Take 1 tablet by mouth daily at bedtime. - levothyroxine (SYNTHROID) 112 mcg tablet Take 1 tablet by mouth once daily. For 6 days of the week. - melatonin 10 mg tab Take 1 tablet by mouth daily at bedtime. - busPIRone (BUSPAR) 5 mg tablet Take 1 tablet by mouth two times a day. - simvastatin (ZOCOR) 40 mg tablet Take 1 tablet by mouth daily at bedtime. - Underpads 30 X 30 " pads 1 Each once daily. 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 Chief Complaint Patient presents with: 4 month follow up HPI Alexander Xiao is a 83 year old female. She is an established patient, presents today accompanied by her for routine follow up. History of DM, dementia and hypothyroid. reports that sleep is okay, might get up to use the bathroom and get a drink but then comes back to bed and falls back to sleep easy. Appetite is okay. No complaints of pain. Taking medicine mostly, sometimes giving a hard time. Some episodes of forgetfulness. She does feel she can still drive and becomes defensive when discussing this topic. Some issues with bowel movements. Loose bowel movements. Some incontinence. Her medications were reviewed today and her list is now up to date. Medications Current Outpatient Medications Medication Sig QUEtiapine (SEROQUEL) 50 mg tablet Take 1 tablet by mouth daily at bedtime. levothyroxine (SYNTHROID) 112 mcg tablet Take 1 tablet by mouth once daily. For 6 days of the week. melatonin 10 mg tab Take 1 tablet by mouth daily at bedtime. busPIRone (BUSPAR) 5 mg tablet Take 1 tablet by mouth two times a day. simvastatin (ZOCOR) 40 mg tablet Take 1 tablet by mouth daily at bedtime. donepezil (ARICEPT) 10 mg tablet Take 1 tablet by mouth daily at bedtime. metFORMIN (GLUCOPHAGE) 500 mg tablet Take 2 tablets by mouth daily with breakfast AND 1 tablet daily with dinner. Underpads 30 X 30 " pads 1 Each once daily. No current facility-administered medications for this visit. ALLERGIES No Known Allergies ACTIVE PROBLEM LIST Moderate Dementia (Hcc) - 07/12/2023 Hypothyroidism Hypercholesteremia Dm (Diabetes Mellitus) (Hcc) Social History Tobacco Use Smoking status: Never Smokeless tobacco: Never Vaping Use Vaping status: Never Used Substance Use Topics Alcohol use: Never Drug use: Never Review of Systems Respiratory: Negative. Cardiovascular: Negative. OBJECTIVE BP 132/72 Pulse 76[Apical of 80[ Wt 153 lb (69.4kg) Physical Exam Vitals and nursing note reviewed. Constitutional: General: She is awake. She is not in acute distress. Appearance: Normal appearance. She is well-developed and well-groomed. She is not ill-appearing, toxic-appearing or diaphoretic. HENT: Head: Normocephalic. Right Ear: External ear normal. Left Ear: External ear normal. Nose: Nose normal. Eyes: General: Vision grossly intact. Conjunctiva/sclera: Conjunctivae normal. Pupils: Pupils are equal, round, and reactive to light. Neck: Vascular: No JVD. Trachea: Trachea normal. Pulmonary: Effort: Pulmonary effort is normal. No accessory muscle usage, prolonged expiration or respiratory distress. Musculoskeletal: Cervical back: Neck supple. Skin: General: Skin is warm and dry. Capillary Refill: Capillary refill takes less than 2 seconds. Neurological: General: No focal deficit present. Mental Status: She is alert and oriented to person, place, and time. Mental status is at baseline. Psychiatric: Attention and Perception: Attention and perception normal. Mood and Affect: Mood and affect normal. Speech: Speech normal. Behavior: Behavior normal. Behavior is cooperative. Cognition and Memory: Cognition is impaired. Memory is impaired. Judgment: Judgment is impulsive. ASSESSMENT/PLAN: 1. Moderate dementia with other behavioral disturbance, unspecified dementia type (HCC) - ICD9: 294.21, ICD10: F03.B18 (primary diagnosis) Increase donepezil, she does seem a little more agitated today then her usual. Refer to geriatrics for continuing care while this provider out on leave. Discussed concerns of patient feeling she can drive and recommended she let her drive her places. - CONSULT TO GERIATRICS 2. Driving safety issue - ICD9: V15.89, ICD10: Z91.89 See above. 3. Type 2 diabetes mellitus without complication, without long-term current use of insulin (HCC) - ICD9: 250.00, ICD10: E11.9 - Improving control - Decrease metformin due to bowel issues likely a side effect - Counseled on healthy diet and regular exercise - Discussed need for and benefit of weight loss. BMI 23.26 kg/(m2) - METFORMIN 500 MG TABLET Portions of this note have been entered by ancillary staff. I have reviewed and when necessary edited, so that they are an adequate record of my encounter with this patient Please note that parts of this document were created using voice recognition software and t (more content not included)... Normal [facility] Yue 02-10-2024 CNPN Telephone (INTMWS) -------- ALEXANDER XIAO ([id number]) 1940 F Date Time Provider Department 02/10/24 CHRISTINA EDMONDS During your visit today, we recorded the following information about you: Suri Ladd 02/10/2024 1:10 PM Signed Patient's is calling Christina Edmonds APRN.RANDI today with concern regarding Medication Problem. states that medication melatonin 10 mg tab has not been called into pharmacy. Patient takes the medication 3x/daily and is asking for a 90 day supply. Patient has been identified by name and birthdate. Duration of symptoms: N/A Please return call to , Jude [phone] Was an appointment scheduled: No Closing statement: Results or non-symptom based questions: Thank you for calling [facility], your call will be returned within the next business day. Isha Quezada LPN 02/10/2024 3:30 PM Signed Appears patients melatonin was changed from 3 mg to 10 mg so she does not have as many pills but patient continued to take medication three times per day with increased dosage and now is out of medication. Please advise Overall doing okay, some sleep disturbance, will change melatonin dose so she does not have as many pills. - MELATONIN 10 MG TABLET Allergies As of Date: 02/10/2024 (No Known Allergies) Date Reviewed: 01/25/2024 Reviewed by: Rach Gatica, RN - Fully Assessed Reason for Visit: Medication Problem [65] Visit Diagnosis:Moderate dementia with other behavioral disturbance, unspecified dementia type (HCC) [F03.B18] Order(s):melatonin 10 mg tabTake 1 tablet by mouth daily at bedtime.Disp: 90 tabletRfl: 1 Prescriptions as of 02/11/2024 - melatonin 10 mg tab Take 1 tablet by mouth daily at bedtime. - busPIRone (BUSPAR) 5 mg tablet Take 1 tablet by mouth two times a day. - metFORMIN (GLUCOPHAGE) 500 mg tablet Take 2 tablets by mouth two times a day with meals. - levothyroxine (SYNTHROID) 112 mcg tablet Take 1 tablet by mouth once daily. For 6 days of the week. - QUEtiapine (SEROQUEL) 50 mg tablet Take 1 tablet by mouth daily at bedtime. - donepezil (ARICEPT) 5 mg tablet Take 1 tablet by mouth daily at bedtime. - simvastatin (ZOCOR) 40 mg tablet Take 1 tablet by mouth daily at bedtime. - Underpads 30 X 30 " pads 1 Each once daily. Problem List As Of Date 02/10/2024 Noted Resolved Hypothyroidism [E03.9] Hypercholesteremia [E78.00] DM (diabetes mellitus) (HCC) [E11.9] Serum calcium elevated [E83.52] 11/16/2016 12/10/2017 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HCC) [F03.B0] 07/12/2023 Prescriptions ordered this encounter Disp Refills Start End MELATONIN 10 MG TABLET 90 t* 1 02/11/2024 Route: ORAL Sig: Take 1 tablet by mouth daily at bedtime. Medications Discontinued During This Encounter Prescriptions - melatonin 10 mg tab (Discontinued) Take 1 tablet by mouth daily at bedtime. Encounter Status:Closed by CHRISTINA EDMONDS on 02/11/24 [facility] BERTOVarleen 01-25-2024 CNOV Office Visit (PODIWS ) -------- ALEXANDER XIAO ([id number]) 1940 F Date Time Provider Department 01/25/24 11:00 AM DAGMAR ORTIZIWS During your visit today, we recorded the following information about you: aRch Gatica RN 01/25/2024 11:21 AM Signed Patient presents with: Left Foot - Established Patient, Follow Up, Diabetic Foot Care Right Foot - Established Patient, Follow Up, Diabetic Foot Care Patient presents for follow up diabetic foot care. SERENE 10/21/23 Dagmar Ortiz 01/25/2024 11:08 AM Signed Diabetes Foot Care Instructions When you have diabetes, proper foot care is very important. Poor foot care may lead to amputation of a foot or leg. As a person with diabetes, you are more vulnerable to foot problems, because diabetes can damage your nerves and reduce blood flow to your feet. Here are some diabetes foot care tips to follow: Wash and Dry Your Feet Daily Use mild soaps Use warm water Pat your skin dry; do not rub. Thoroughly dry your feet. After washing, use lotion on your feet to prevent cracking. Do not put lotion between your toes. Examine Your Feet Each Day Check the tops and bottoms of your feet. Have someone else look at your feet if you cannot see them. Check for dry, cracked skin. Look for blisters, cuts, scratches, or other sores. Check for redness, increased warmth, or tenderness when touching any area of your feet. Check for ingrown toenails, corns, and calluses. If you get a blister or sore from your shoes, do not "pop" it. Apply a bandage and wear a different pair of shoes. Take Care of Your Toenails Cut toenails after bathing, when they are soft. Cut toenails straight across and smooth with a nail file. Avoid cutting into the corners of toes. Do not cut cuticles. If you have neuropathy (or decreased sensation in your feet) a water commissioner should always cut your toenails. Be Careful When Exercising Walk and exercise in comfortable shoes. Do not exercise when you have open sores on your feet. Protect Your Feet With Shoes and Socks Never go barefoot. Always protect your feet by wearing shoes or hard-soled slippers or footwear. Avoid shoes with high heels and pointed toes. Avoid shoes that expose your toes or heels (such as open-toed shoes or sandals). These types of shoes increase your risk for injury and potential infections. Try on new footwear with the type of socks you usually wear. Do not wear new shoes for more than an hour at a time. Change your socks daily. Look and feel inside your shoes before putting them on to make sure there are no foreign objects or rough areas. Avoid tight socks. Wear natural-fiber socks (cotton, wool, or a cotton-wool blend). Wear special shoes if your health care provider recommends them. Wear shoes/boots that will protect your feet from various weather conditions (cold, moisture, etc.). Make sure your shoes fit properly. If you have neuropathy (nerve damage), you may not notice that your shoes are too tight. Perform the "footwear test" described below. Footwear Test Use this simple test to see if your shoes fit correctly: Stand on a piece of paper. (Make sure you are standing and not sitting, because your foot changes shape when you stand.) Trace the outline of your foot. Trace the outline of your shoe. Compare the tracings: Is the shoe too narrow? Is your foot crammed into the shoe? The shoe should be at least 1/2 inch longer than your longest toe and as wide as your foot. Proper Shoe Choices The following types of shoes are best for people with diabetes Closed toes and heels Leather uppers without a seam inside At least 1/2 inch extra space at the end of your longest toe Inside of shoe should be soft with no rough areas Outer sole should be made of stiff material Shoes should be at least as wide as your feet Tips for Foot Care in Diabetes Don't wait to treat a minor foot problem if you have diabetes. Follow your health care provider's guidelines and first aid guidelines. Report foot injuries and infections to your health care provider immediately. Check water temperature with your elbow, not your foot. Do not use a heating pad on your feet. Do not cross your legs. Do not self-treat your corns, calluses, or other foot problems. Go to your health care provider or water commissioner to treat these conditions. Dagmar Ortiz 01/25/2024 11:21 AM Signed Last saw pcp: 11/12/23 Subjective: Patient presents to clinic c/o painful toenails. They state that the nails are especially painful with shoe gear and pressure. Patient admits to being diabetic. No other pedal complaints at this time. Patient states no change in medications or medical history since last visit. Objective: Patient presents to clinic ambulating in k montserratian tennis shoes Vasc: DP and PT pulses are nonpalpabe left and faintly palpable right. C (more content not included)... Normal [facility] Laboratory - Drug toxicology Ordered By: Emir Zhou on 06-22-2023 Amphetamines Ql (U) Negative <1000 ng/mL [facility] Benzodiazepines Ql (U) Negative < 200 ng/mL [facility] Cannabinoids Screen Ql (U) Negative < 50 ng/mL [facility] Cocaine Ql (U) Negative < 300 ng/mL [facility] Opiates Ql (U) Negative < 300 ng/mL [facility] No Panel InformationOrdered By: Emir Zhou on 06-22-2023 MDMA (Ecstasy) Screen Negative < 500 ng/mL [facility] Urine Barbiturates Screen Negative < 200 ng/mL [facility] Urine Drug Screen Comment [facility] Comment on above: CONFIRMATORY TESTING FOR ALL POSITIVE URINE DRUG SCREENRESULTS WILL ONLY BE SENT OUT UPON PHYSICIAN ORDER. VISTA Urine Drug Screen methods provide only preliminaryanalytical test results. A more specific alternate chemicalmethod must be used in order to obtain a confirmedanalytical result. Gas chromatography/mass spectrometery(GC/MS) is the preferred confirmatory method. Clinicalconsideration and professional judgement should be appliedto any drug of abuse test result, particularly whenpreliminary positive results are used. URINE TCA TESTING MUST BE ORDERED SEPARATELY. USE TESTMNEMONIC: [facility] Urine Methadone Screen Negative < 300 ng/mL [facility] Thin prep Papanicolaou smear with manual screeningOrdered By: Teddy Turpin on 06-22-2023 Thin prep Papanicolaou smear with manual screening 177 mg/dL 74-106 [facility] Comment on above: MANAGEMENT OF PATIEN T CARE PER NURSING PROTOCOL Urine phencyclidine (PCP) de tectionOrdered By: Emir Zhou on 06-22-2023 Phencyclidine Ql (U) Negative < 25 ng/mL [facility] Absolute lymphocyte countOrd ered By: Viri Mcclelland on 06-20-2023 Lymphocytes Auto (Unsp spec) [#/Vol] 1.77 10*3/uL 0.83-4.51 [facility] Automated lymphocyte count a s percentage of total leukocytesOrdered By: Viri Mcclelland on 06-20-2023 Lymphocytes/100 WBC Auto (Unsp spec) 35.5 % 19-41 [facility] Basophil percentageOrdered B y: Viri Mcclelland on 06-20-2023 Basophils/100 WBC (Bld) 1.0 % 0-1 [facility] Bilirubin [Mass/Vol] 1.10 mg/dL 0.20-1.00 [facility] Comment on above: For patients on eltr ombopag therapy, use of Dimension [place] TBIL is not recommended. Chloride [Moles/Vol] 104 mmol/L 98-107 [facility] Eosinophils/100 WBC (Bld) 1.8 % 0-5 [facility] Glucose [Mass/Vol] 315 mg/dL 74-106 [facility] Comment on above: Glucose result great er than or equal to 200 mg/dLsuggests DIABETES MELLITUS per A.D.A. criteria. Hemoglobin (Bld) [Mass/Vol] 14.1 g/dL 12.0-15.0 [facility] Monocytes/100 WBC (Bld) 10.2 % 0-10 [facility] Neutrophils (Bld) [#/Vol] 2.6 10*3/uL 2.0-7.7 [facility] Neutrophils/100 WBC (Bld) 51.1 % 47-70 [facility] Potassium [Moles/Vol] 3.8 mmol/L 3.5-5.1 [facility] Protein [Mass/Vol] 5.9 g/dL 6.4-8.2 [facility] Sodium [Moles/Vol] 136 mmol/L 136-145 [facility] WBC (Bld) [#/Vol] 5.0 10*3/uL 4.4-11.0 [facility] Determination of erythrocyte mean corpuscular volume (MCV)Ordered By: Viri Mcclelland on 06-20-2023 MCV (RBC) [Entitic vol] 88.1 fL 81-99 [facility] Erythrocyte distribution wid th ratioOrdered By: Viri Mcclelland on 06-20-2023 Erythrocyte distribution width (RBC) [Ratio] 12.9 % 11.6-14.6 [facility] Erythrocyte distribution wid th standard deviationOrdered By: Viri Mcclelland on 06-20-2023 Erythrocyte distribution width (RBC) [Entitic vol] 42.0 fL 35.1-43.9 [facility] Hematocrit Auto (Bld) [Volum e fraction]Ordered By: Viri Mcclelland on 06-20-2023 Hematocrit (Bld) [Volume fraction] 42.0 % 37-47 [facility] Immature granulocytes/100 WB C Auto (Bld)Ordered By: Viri Mcclelland on 06-20-2023 Immature granulocytes/100 WBC (Bld) 0.400 % 0.0-0.9 [facility] Comment on above: IG% - Immature Granu locytes (promyelocytes, myelocytes and metamyelocytes) > 1% indicates that a LEFT SHIFT is Present. Laboratory - Chemistry and C hemistry - challengeOrdered By: Viri Mcclelland on 06-20-2023 Albumin/Globulin [Mass ratio] 1.1 {ratio} 0.9-2.4 [facility] ALP [Catalytic activity/Vol] 68 U/L 45-117 [facility] ALT [Catalytic activity/Vol] 18 U/L 13-56 [facility] CO2 [Moles/Vol] 26.0 mmol/L 21.0-32.0 [facility] Cobalamin (Vitamin B12) [Mass/Vol] 211 pg/mL 211-911 [facility] Globulin (S) [Mass/Vol] 2.8 g/dL 2.2-4.2 [facility] Urea nitrogen/Creatinine [Mass ratio] 13.5 mg/mg 10-20 [facility] Laboratory - Hematology and Cell countsOrdered By: Viri Mcclelland on 06-20-2023 MCH (RBC) [Entitic mass] 29.6 pg 27.0-32.0 [facility] MCHC (RBC) [Mass/Vol] 33.6 g/dL 32-36 [facility] Nucleated RBC/100 WBC (Bld) [Ratio] 0 % 0-5 [facility] Platelet mean volume (Bld) [Entitic vol] 9.7 fL 6.2-12.0 [facility] Platelets (Bld) [#/Vol] 172 10*3/uL 150-450 [facility] No Panel InformationOrdered By: Viri Mcclelland on 06-20-2023 Estimated Creatinine Clearance Calc 53.36 ml/min [facility] Estimated GFR (MDRD) Amer 86 mL/min >60 [facility] Comment on above: GFR Calc Estimated GFR (MDRD) Non-Af Amer 71 mL/min >60 [facility] Comment on above: Non- GFR Calc RBC Auto (Bld) [#/Vol]Ordere d By: Viri Mcclelland on 06-20-2023 RBC (Bld) [#/Vol] 4.77 10*6/uL 4.2-5.4 [facility] Serum Treponema species anti body detectionOrdered By: Viri Mcclelland on 06-20-2023 Treponema sp Ab Ql (S) Non-Reactive [facility] Serum or plasma calcium yumiko urement (mass/volume)Ordered By: Viri Mcclelland on 06-20-2023 Calcium [Mass/Vol] 9.1 mg/dL 8.5-10.1 [facility] Serum or plasma creatinine m easurement (mass/volume)Ordered By: Viri Mcclelland on 06-20-2023 Creatinine [Mass/Vol] 0.82 mg/dL 0.55-1.02 [facility] Comment on above: The validity of the calculated GFR & GFRAA in patients over 70 years has not been determined. Clinical correlation is essential. Serum or plasma urea nitroge n measurement (mass/volume)Ordered By: Viri Mcclelland on 06-20-2023 Urea nitrogen [Mass/Vol] 11 mg/dL 7-18 [facility] Thin prep Papanicolaou smear with manual screeningOrdered By: Viri Mcclelland on 06-20-2023 Thin prep Papanicolaou smear with manual screening 3.1 g/dL 3.2-5.0 [facility] Thin prep Papanicolaou smear with manual screening 16 U/L 15-37 [facility] Thin prep Papanicolaou smear with manual screening 6 5-15 [facility] Basophil percentageOrdered B y: Artur Gallardo on 06-19-2023 Basophil percentage 0 SEEN /hpf 0-5 [facility] Bilirubin Test strip Ql (U)O rdered By: Artur Gallardo on 06-19-2023 Bilirubin Ql (U) Negative Negative [facility] Erythrocyte sedimentation ra teOrdered By: Viri Mcclelland on 06-19-2023 ESR (Bld) [Velocity] 3 mm/h 0-30 [facility] Ketones Test strip Ql (U)Ord ered By: Artur Gallardo on 06-19-2023 Ketones Ql (U) 5 mg/dl Negative [facility] Laboratory - Microbiology an d Antimicrobial susceptibilityOrdered By: Artur Gallardo on 06-19-2023 SARS-CoV-2 (COVID-19) RNA MOLLY+probe Ql (Unsp spec) [facility] Mucus LM Ql (Urine sed)Order ed By: Artur Gallardo on 06-19-2023 Mucus Ql (Urine sed) 0 SEEN /hpf [facility] Nitrite Test strip Ql (U)Ord ered By: Artur Gallardo on 06-19-2023 Nitrite Ql (U) Negative Negative [facility] No Panel InformationOrdered By: Artur Gallardo on 06-19-2023 Urine RBC 0 SEEN /hpf 0-5 [facility] Troponin I High Sensitivity 9 pg/mL 3.0-54.0 [facility] Comment on above: Please Note: New Farnaz t Units and Gender Specific Reference Ranges. For more information see Policy Stat Procedure [place] High Sensitivity Troponin (TNIH) and attachments. No Panel InformationOrdered By: Viri Mcclelland on 06-19-2023 C-Reactive Protein Extended Range < 2.90 mg/L 0.0-3.0 [facility] Comment on above: C-Reactive Protein ( CRP) provides useful information for thediagnosis, therapy and monitoring of inflammatory processesand associated diseases. For the evaluation of Relative Riskfor Cardiovascular Disease, a High Sensitivity CRP (HSCRP)should be ordered. Folate 19.10 ng/mL 3.1-55.4 [facility] Free Triiodothyronine (T3) pg/dL 1.9 pg/mL 2.18-3.98 [facility] Protein Test strip Ql (U)Ord ered By: Artur Gallardo on 06-19-2023 Protein Ql (U) Negative Negative [facility] Serum or plasma thyroid stim ulating hormone (TSH) measurement (units/volume)Ordered By: Viri Mcclelland on 06-19-2023 TSH Qn 18.30 uIU/mL 0.358-3.74 [facility] Squamous epithelial cells de tection in urine sediment by light microscopyOrdered By: Artur Gallardo on 06-19-2023 Epithelial cells.squamous LM Ql (Urine sed) 0-5 SEEN /hpf 5-10 [facility] Thin prep Papanicolaou smear with manual screeningOrdered By: Viri Mcclelland on 06-19-2023 Thin prep Papanicolaou smear with manual screening 0.69 ng/dL 0.76-1.46 [facility] Urine blood detectionOrdered By: Artur Gallardo on 06-19-2023 RBC Ql (U) Negative Negative [facility] Urine clarityOrdered By: Isaac Gallardo on 06-19-2023 Clarity (U) Clear Clear [facility] Urine color determinationOrd ered By: Artur Gallardo on 06-19-2023 Color (U) Yellow Yellow [facility] Urine glucose detectionOrder ed By: Artur Gallardo on 06-19-2023 Glucose Ql (U) 1000 mg/dl Normal [facility] Urine leukocyte esterase det ection by dipstickOrdered By: Artur Gallardo on 06-19-2023 Leukocyte esterase Test strip Ql (U) Negative Negative [facility] Urine pHOrdered By: Artur arroyo on 06-19-2023 pH (U) 6.0 [pH] 5.0 - 8.0 [facility] Urine sediment bacteria coun t by microscopy (number/high power field)Ordered By: Artur Gallardo on 06-19-2023 Bacteria LM.HPF (Urine sed) [#/Area] 0 /[HPF] None Seen [facility] Urine specific gravity measu rementOrdered By: Artur Gallardo on 06-19-2023 Specific gravity (U) [Rel density] 1.015 1.002-1.030 [facility] Urine urobilinogen measureme ntOrdered By: Artur Gallardo on 06-19-2023 Urobilinogen Ql (U) Normal mg/dl Normal [facility] Whole blood hemoglobin A1c/t otal hemoglobin ratio (mass fraction)Ordered By: Viri Mcclelland on 06-19-2023 HbA1c (Bld) [Mass fraction] 13.0 % 3.8-5.6 [facility] Comment on above: Normal < 5.7 % Predi abetic 5.7 - 6.4 % Diabetic >or= 6.5 % Please note range changes. Glucose Glucometer (BldC) [M ass/Vol]on 02-04-2022 Glucose [Mass/Vol] 280 mg/dL 74-106 [facility] Work Phone: Comment on above: MANAGEMENT OF PATIEN T CARE PER NURSING PROTOCOL Absolute lymphocyte counton 02-03-2022 Lymphocytes Auto (Unsp spec) [#/Vol] 1.01 10*3/uL 0.83-4.51 [facility] Work Phone: Basophil percentageon 2021 Basophils/100 WBC (Bld) 0.5 % 0-1 [facility] Work Phone: [phone] Chloride [Moles/Vol] 98 mmol/L 98-107 [facility] Work Phone: [phone] Eosinophils/100 WBC (Bld) 0.3 % 0-5 [facility] Work Phone: [phone] Glucose [Mass/Vol] 140 mg/dL 74-106 [facility] Work Phone: Comment on above: Fasting Glucose resu lt greater than or equal to 126 mg/dL suggests DIABETES MELLITUS per A.D.A. criteria. Neutrophils (Bld) [#/Vol] 2.6 10*3/uL 2.0-7.7 [facility] Work Phone: Neutrophils/100 WBC (Bld) 66.0 % 47-70 [facility] Work Phone: Potassium [Moles/Vol] 3.7 mmol[facility]L 3.5-5.[facility]: Sodium [Moles/Vol] 133 mmol/L 136-145 [facility] Work Phone: WBC (Bld) [#/Vol] 4.0 10*3/uL 4.4-11.0 [facility] Work Phone: Blood erythrocytes count (nu mber/volume)on 02-03-2022 RBC (Bld) [#/Vol] 4.38 10*6/uL 4.2-5.4 [facility]: Blood hemoglobin measurement (mass/volume)on 02-03-2022 Hemoglobin (Bld) [Mass/Vol] 13.3 g/dL 12.0-15.0 [facility] Work Phone: Blood lymphocytes/100 leukoc yteson 02-03-2022 Lymphocytes/100 WBC (Bld) 25.6 % 19-41 [facility] Work Phone: Blood monocytes/100 leukocyt eson 02-03-2022 Monocytes/100 WBC (Bld) 7.3 % 0-10 [facility] Work Phone: Blood platelet mean volumeon 02-03-2022 Platelet mean volume (Bld) [Entitic vol] 9.9 fL 6.2-12.0 [facility] Work Phone: Determination of erythrocyte mean corpuscular volume (MCV)on 02-03-2022 MCV (RBC) [Entitic vol] 86.8 fL 81-99 [facility] Work Phone: Hematocrit Auto (Bld) [Volum e fraction]on 02-03-2022 Hematocrit (Bld) [Volume fraction] 38.0 % 37-47 [facility] Work Phone: Laboratory - Chemistry and C hemistry - challengeon 02-03-2022 CO2 [Moles/Vol] 25.0 mmol/L 21.0-32.0 [facility] Work Phone: Urea nitrogen/Creatinine [Mass ratio] 10.7 mg/mg 10-20 [facility] Work Phone: Laboratory - Hematology and Cell countson 02-03-2022 Erythrocyte distribution width (RBC) [Entitic vol] 40.6 fL 35.1-43.9 [facility] Work Phone: Erythrocyte distribution width (RBC) [Ratio] 12.7 % 11.6-14.6 [facility] Work Phone: Immature granulocytes/100 WBC (Bld) 0.300 % 0.0-0.9 [facility] Work Phone: Comment on above: IG% - Immature Granu locytes (promyelocytes, myelocytes and metamyelocytes) > 1% indicates that a LEFT SHIFT is Present. MCH (RBC) [Entitic mass] 30.4 pg 27.0-32.0 [facility] Work Phone: Nucleated RBC/100 WBC (Bld) [Ratio] 0 % 0-5 [facility] Work Phone: MCHC Auto (RBC) [Mass/Vol]on 02-03-2022 MCHC (RBC) [Mass/Vol] 35.0 g/dL 32-36 [facility] Work Phone: No Panel Informationon 02-03 Estimated Creatinine Clearance Calc 43.39 ml/min [facility] Work Phone: Estimated GFR (MDRD) Amer 112 mL/min >60 [facility] Work Phone: Comment on above: GFR Calc Estimated GFR (MDRD) Non-Af Amer 93 mL/min >60 [facility] Work Phone: Comment on above: Non- GFR Calc Platelets bldon 02-03-2022 Platelets (Bld) [#/Vol] 214 10*3/uL 150-450 [facility] Work Phone: Serum or plasma calcium yumiko urement (mass/volume)on 02-03-2022 Calcium [Mass/Vol] 8.9 mg/dL 8.5-10.1 [facility] Work Phone: Serum or plasma creatinine m easurement (mass/volume)on 02-03-2022 Creatinine [Mass/Vol] 0.65 mg/dL 0.55-1.02 [facility] Work Phone: Comment on above: The validity of the calculated GFR & GFRAA in patients over 70 years has not been determined. Clinical correlation is essential. Serum or plasma urea nitroge n measurement (mass/volume)on 02-03-2022 Urea nitrogen [Mass/Vol] 7 mg/dL 7-18 [facility] Work Phone: Thin prep Papanicolaou smear with manual screeningon 02-03-2022 Thin prep Papanicolaou smear with manual screening 10 5-15 [facility] Work Phone: Basophil percentageon 2021 Bilirubin [Mass/Vol] 0.60 mg/dL 0.20-1.00 [facility] Work Phone: Comment on above: For patients on eltr ombopag therapy, use of Dimension [place] TBIL is not recommended. Protein [Mass/Vol] 6.2 g/dL 6.4-8.2 [facility] Work Phone: Laboratory - Chemistry and C hemistry - challengeon 02-02-2022 ALP [Catalytic activity/Vol] 49 U/L 45-117 [facility] Work Phone: ALT [Catalytic activity/Vol] 18 U/L 13-56 [facility] Work Phone: Globulin (S) [Mass/Vol] 3.1 g/dL 2.2-4.2 [facility] Work Phone: No Panel Informationon 02-02 Troponin I High Sensitivity 4 pg/mL 3.0-54.0 [facility] Work Phone: Comment on above: Please Note: New Farn[place] t Units and Gender Specific Reference Ranges. For more information see Policy Stat Procedure [place] High Sensitivity Troponin (TNIH) and attachments. Serum or plasma albumin yumiko urement (mass/volume)on 02-02-2022 Albumin [Mass/Vol] 3.1 g/dL 3.2-5.0 [facility] Work Phone: Serum or plasma albumin/glob ulin mass ratioon 02-02-2022 Albumin/Globulin [Mass ratio] 1.0 {ratio} 0.9-2.4 [facility] Work Phone: Thin prep Papanicolaou smear with manual screeningon 02-02-2022 Thin prep Papanicolaou smear with manual screening 31 U/L 15-37 [facility] Work Phone: Comment on above: Moderate Hemolysis, Result may be falsely increased. Vital Signs Date Time Vital Sign Value Performing Clinician Facility 08-01-2024 13:59-0400 Body height 173 cm Christina Edmonds APRN.[employer] WORK[employer] Work Phone: [facility] 08-01-2024 13:59-0400 Body mass index (BMI) [Ratio] 22.32 kg/m2 Christina Edmonds TUG MASTER.[employer] Work Phone: [facility] 08-01-2024 13:59-0400 Body weight 66.8 kg Christina Edmonds APRN.[employer] WORK[employer] Work Phone: [facility] 08-01-2024 13:59-0400 Diastolic blood pressure 68 mm[Hg] Christina Edmonds APRN.[employer] WORK[employer] Work Phone: [facility] 08-01-2024 13:59-0400 Heart rate 80 /min Christina Edmonds APRN.[employer] WORK[employer] Work Phone: [facility] 08-01-2024 13:59-0400 SaO2% (BldA) [Mass fraction] 98 % Christina Edmonds APRN.[employer] WORK[employer] Work Phone: [facility] 08-01-2024 13:59-0400 Systolic blood pressure 120 mm[Hg] Christina Edmonds APRN.[employer] WORK[employer] Work Phone: [facility] 07-19-2024 17:29-0400 Body mass index (BMI) [Ratio] 22.93 kg/m2 Gemma Saeed APRN.[employer] WORK[employer] Work Phone: [facility] 07-19-2024 17:29-0400 Body temperature 98.49 [degF] Gemma Saeed APRN.[employer] WORK[employer] Work Phone: [facility] 07-19-2024 17:29-0400 Body weight 68.4 kg Gemma Saeed APRN.[employer] WORK[employer] Work Phone: [facility] 07-19-2024 17:29-0400 Diastolic blood pressure 80 mm[Hg] Gemma Christophe TUG MASTER.[employer] WORK[employer] Work Phone: [facility] 07-19-2024 17:29-0400 Heart rate 69 /min Gemma Saeed TUG MASTER.[employer] WORK[employer] Work Phone: [facility] 07-19-2024 17:29-0400 Respiratory rate 18 /min Gemma Saeed TUG MASTER.[employer] WORK[employer] Work Phone: [facility] 07-19-2024 17:29-0400 SaO2% (BldA) [Mass fraction] 97 % Gemma Saeed TUG MASTER.[employer] WORK[employer] Work Phone: [facility] 07-19-2024 17:29-0400 Systolic blood pressure 122 mm[Hg] eGmma Saeed TUG MASTER.[employer] WORK[employer] Work Phone: [facility] 04-26-2024 14:09-0500 Body mass index (BMI) [Ratio] 22.35 kg/m2 Jose Jenkins MD Work Phone: [facility] 04-26-2024 14:09-0500 Body weight 66.68 kg Jose Jenkins MD Work Phone: [facility] 04-26-2024 14:09-0500 Diastolic blood pressure 80 mm[Hg] Jose Jenkins MD Work Phone: [facility] 04-26-2024 14:09-0500 Heart rate 111 /min Jose Jenkins MD Work Phone: [facility] 04-26-2024 14:09-0500 Respiratory rate 16 /min Jose Jenkins MD Work Phone: [facility] 04-26-2024 14:09-0500 Systolic blood pressure 130 mm[Hg] Jose Jenkins MD Work Phone: [facility] 03-14-2024 13:03-0500 Body mass index (BMI) [Ratio] 23.26 kg/m2 Christina Edmonds TUG MASTER.[employer] WORK[employer] Work Phone: [facility] 03-14-2024 13:03-0500 Body weight 69.4 kg Christina Edmonds TUG MASTER.[employer] WORK[employer] Work Phone: [facility] 03-14-2024 13:03-0500 Diastolic blood pressure 72 mm[Hg] Christina Grey T[employer] MASTER.[employer] WORK[employer] Work Phone: [facility] 03-14-2024 13:03-0500 Heart rate 76 /min Christina Grey TUG MASTER.[employer] WORK[employer] Work Phone: [facility] Comment on above: Apical of 80 03-14-2024 13:03-0500 Systolic blood pressure 132 mm[Hg] Christina Grey TUG MASTER.[employer] WORK[employer] Work Phone: [facility] 11-12-2023 13:20-0400 Body mass index (BMI) [Ratio] 22.66 kg/m2 Christina Grey TUG MASTER.[employer] WORK[employer] Work Phone: [facility] 11-12-2023 13:20-0400 Body weight 67.59 kg Christina Grey TUG MASTER.[employer] WORK[employer] Work Phone: [facility] 11-12-2023 13:20-0400 Diastolic blood pressure 60 mm[Hg] Christina Grey TUG MASTER.[employer] WORK[employer] Work Phone: [facility] 11-12-2023 13:20-0400 Heart rate 86 /min Christina Grey T[employer] MASTER.[employer] WORK[employer] Work Phone: [facility] 11-12-2023 13:20-0400 SaO2% (BldA) [Mass fraction] 97 % Christina Grey TUG MASTER.[employer] WORK[employer] Work Phone: [facility] 11-12-2023 13:20-0400 Systolic blood pressure 102 mm[Hg] Christina Grey TUG MASTER.[employer] WORK[employer] Work Phone: [facility] 08-13-2023 10:47-0400 Body temperature 97 [degF] Christina Grey TUG MASTER.[employer] WORK[employer] Work Phone: [facility] 08-13-2023 10:47-0400 Body weight 68.95 kg Christina Grey TUG MASTER.[employer] WORK[employer] Work Phone: [facility] [facility] 08-13-2023 10:47-0400 Diastolic blood pressure 68 mm[Hg] Christina Grey TUG MASTER.KILN WORKER Work Phone: [facility] 08-13-2023 10:47-0400 Heart rate 84 /min Christina Grey TUG MASTER.KILN WORKER Work Phone: [facility] 08-13-2023 10:47-0400 Respiratory rate 16 /min Christina Grey TUG MASTER.KILN WORKER Work Phone: [facility] 08-13-2023 10:47-0400 Systolic blood pressure 126 mm[Hg] Christina Grey TUG MASTER.KILN WORKER Work Phone: [facility] 07-20-2023 12:55-0400 Diastolic blood pressure 64 mm[Hg] Christina Grey TUG MASTER.KILN WORKER Work Phone: [facility] 07-20-2023 12:55-0400 Heart rate 80 /min Christina Grey TUG MASTER.KILN WORKER Work Phone: [facility] 07-20-2023 12:55-0400 Respiratory rate 16 /min Christina Grey TUG MASTER.KILN WORKER Work Phone: [facility] 07-20-2023 12:55-0400 Systolic blood pressure 98 mm[Hg] Christina Grey TUG MASTER.KILN WORKER Work Phone: [facility] 07-17-2023 12:12-0500 Body temperature 96.8 [degF] Rena Demetrius TUG MASTER.KILN WORKER Work Phone: [facility] 07-17-2023 12:12-0500 Body weight 69.2 kg Rena Demetrius TUG MASTER.KILN WORKER Work Phone: [facility] 07-17-2023 12:12-0500 Diastolic blood pressure 62 mm[Hg] Rena Demetrius TUG MASTER.KILN WORKER Work Phone: [facility] 07-17-2023 12:12-0500 Heart rate 96 /min Rena Demetrius TUG MASTER.KILN WORKER Work Phone: [facility] 07-17-2023 12:12-0500 Respiratory rate 16 /min Rena Demetrius TUG MASTER.KILN WORKER Work Phone: [facility] 07-17-2023 12:12-0500 SaO2% (BldA) [Mass fraction] 95 % Rena Dorank TUG MASTER.KILN WORKER Work Phone: [facility] 07-17-2023 12:12-0500 Systolic blood pressure 100 mm[Hg] Rena Dorank TUG MASTER.KILN WORKER Work Phone: [facility] 07-12-2023 14:51-0500 Body weight 69.85 kg Christina Grey TUG MASTER.KILN WORKER Work Phone: [facility] 07-12-2023 14:51-0500 Diastolic blood pressure 72 mm[Hg] Christina Grey TUG MASTER.KILN WORKER Work Phone: [facility] 07-12-2023 14:51-0500 Heart rate 84 /min Christina Grey TUG MASTER.KILN WORKER Work Phone: [facility] 07-12-2023 14:51-0500 Respiratory rate 16 /min Christina Grey TUG MASTER.KILN WORKER Work Phone: [facility] 07-12-2023 14:51-0500 Systolic blood pressure 120 mm[Hg] Christina Grey TUG MASTER.KILN WORKER Work Phone: [facility] 06-22-2023 09:07-0500 Body temperature 97.5 [degF] Dr. Artur Gallardo Work Phone: [facility] 06-22-2023 09:07-0500 Diastolic blood pressure 87 mm[Hg] Dr. Artur Gallardo Work Phone: [facility] 06-22-2023 09:07-0500 Heart rate 109 /min Dr. Artur Gallardo Work Phone: [facility] 06-22-2023 09:07-0500 Respiratory rate 17 /min Dr. Artur Gallardo Work Phone: [facility] 06-22-2023 09:07-0500 SaO2% (BldA) [Mass fraction] 98 % Dr. Artur Gallardo Work Phone: [facility] 06-22-2023 09:07-0500 Systolic blood pressure 137 mm[Hg] Dr. Artur Gallardo Work Phone: [facility] 06-20-2023 10:12-0500 Body height 172.[address] Artur Gallardo Work Phone: [facility] 06-20-2023 10:12-0500 Body weight 68.[address] Artur Gallardo Work Phone: [facility] 06-19-2023 20:27-0500 Body mass index (BMI) [Ratio] 22.8 kg/m2 Dr. Artur Gallardo Work Phone: [facility] 06-19-2023 12:59-0500 Body temperature 97.11 [degF] Devin Carrasquillo MD Work Phone: [facility] 06-19-2023 12:59-0500 Body weight 69.58 kg Devin Carrasquillo MD Work Phone: [facility] 06-19-2023 12:59-0500 Diastolic blood pressure 88 mm[Hg] Devin Carrasquillo MD Work Phone: [facility] 06-19-2023 12:59-0500 Heart rate 90 /min Devin Carrasquillo MD Work Phone: [facility] 06-19-2023 12:59-0500 Respiratory rate 21 /min Devin Carrasquillo MD Work Phone: [facility] 06-19-2023 12:59-0500 SaO2% (BldA) [Mass fraction] 99 % Devin Carrasquillo MD Work Phone: [facility] 06-19-2023 12:59-0500 Systolic blood pressure 130 mm[Hg] Devin Carrasquillo MD Work Phone: [facility] 02-27-2022 08:17-0400 Body weight 63.5 kg Evita Jimenez APRN.NEONATAL INTENSIVE CARE UNIT NURSE Work Phone: [facility] 02-27-2022 08:17-0400 Diastolic blood pressure 80 mm[Hg] Evita Jimenez APRN.NEONATAL INTENSIVE CARE UNIT NURSE Work Phone: [facility] 02-27-2022 08:17-0400 Heart rate 83 /min Evita Jimenez TUG MASTER.NEONATAL INTENSIVE CARE UNIT NURSE Work Phone: [facility] 02-27-2022 08:17-0400 Respiratory rate 16 /min Evita Jimenez TUG MASTER.NEONATAL INTENSIVE CARE UNIT NURSE Work Phone: [facility] 02-27-2022 08:17-0400 SaO2% (BldA) [Mass fraction] 98 % Evita Jimenez TUG MASTER.NEONATAL INTENSIVE CARE UNIT NURSE Work Phone: [facility] 02-27-2022 08:17-0400 Systolic blood pressure 122 mm[Hg] Evita Jimenez TUG MASTER.NEONATAL INTENSIVE CARE UNIT NURSE Work Phone: [facility] 02-04-2022 11:01-0400 Body temperature 97.9 [degF] Dr. Jose Corbett Work Phone: [facility] Work Phone: 02-04-2022 11:01-0400 Diastolic blood pressure 62 mm[Hg] Dr. Jose Corbett Work Phone: [facility] Work Phone: 02-04-2022 11:01-0400 Heart rate 70 /min Dr. Jose Corbett Work Phone: [facility] Work Phone: 02-04-2022 11:01-0400 Respiratory rate 12 /min Dr. Jose Corbett Work Phone: [facility] Work Phone: 02-04-2022 11:01-0400 SaO2% (BldA) [Mass fraction] 98 % Dr. Jose Corbett Work Phone: [facility] Work Phone: 02-04-2022 11:01-0400 Systolic blood pressure 106 mm[Hg] Dr. Jose Corbett Work Phone: [facility] Work Phone: 02-03-2022 00:15-0400 Body height 175.[address] Jose Corbett Work Phone: [facility] Work Phone: 02-03-2022 00:15-0400 Body mass index (BMI) [Ratio] 20.2 kg/m2 Dr. Jose Corbett Work Phone: [facility] Work Phone: 02-03-2022 00:15-0400 Body weight 62.[address] Jose Corbett Work Phone: [facility] Work Phone: 01-28-2022 16:11-0400 Body temperature 99.39 [degF] Jackie Praisler-Wood TUG MASTER.KILN WORKER Work Phone: [facility] 01-28-2022 16:11-0400 Body weight 65.05 kg Jackie Praisler-Wood TUG MASTER.KILN WORKER Work Phone: [facility] 01-28-2022 16:11-0400 Diastolic blood pressure 82 mm[Hg] Jackie Praisler-Wood TUG MASTER.KILN WORKER Work Phone: [facility] 01-28-2022 16:11-0400 Heart rate 86 /min Jackie Praisler-Wood TUG MASTER.KILN WORKER Work Phone: [facility] 01-28-2022 16:11-0400 Respiratory rate 18 /min Jackie Praisler-Wood TUG MASTER.KILN WORKER Work Phone: [facility] 01-28-2022 16:11-0400 SaO2% (BldA) [Mass fraction] 95 % Jackie Praisler-Wood TUG MASTER.KILN WORKER Work Phone: [facility] 01-28-2022 16:11-0400 Systolic blood pressure 120 mm[Hg] Jackie Praisler-Wood TUG MASTER.KILN WORKER Work Phone: [facility] 01-09-2022 10:08-0400 Body temperature 97.81 [degF] Rena Demetrius TUG MASTER.KILN WORKER Work Phone: [facility] 01-09-2022 10:08-0400 Body weight 66.41 kg Rena Demetrius TUG MASTER.KILN WORKER Work Phone: [facility] 01-09-2022 10:08-0400 Diastolic blood pressure 78 mm[Hg] Rena Demetrius TUG MASTER.KILN WORKER Work Phone: [facility] 01-09-2022 10:08-0400 Heart rate 110 /min Rena Demetrius TUG MASTER.KILN WORKER Work Phone: [facility] 01-09-2022 10:08-0400 Respiratory rate 16 /min Rena Demetrius TUG MASTER.KILN WORKER Work Phone: [facility] 01-09-2022 10:08-0400 SaO2% (BldA) [Mass fraction] 98 % Rena Demetrius TUG MASTER.KILN WORKER Work Phone: [facility] 01-09-2022 10:08-0400 Systolic blood pressure 132 mm[Hg] Rena Demetrius TUG MASTER.KILN WORKER Work Phone: [facility] 11-27-2021 09:06-0400 Body weight 66.22 kg Evita Jimenez TUG MASTER.NEONATAL INTENSIVE CARE UNIT NURSE Work Phone: [facility] 11-27-2021 09:06-0400 Diastolic blood pressure 80 mm[Hg] Evita Jimenez TUG MASTER.NEONATAL INTENSIVE CARE UNIT NURSE Work Phone: [facility] 11-27-2021 09:06-0400 Heart rate 78 /min Evita Jimenez TUG MASTER.NEONATAL INTENSIVE CARE UNIT NURSE Work Phone: [facility] 11-27-2021 09:06-0400 Respiratory rate 16 /min Evita Jimenez TUG MASTER.NEONATAL INTENSIVE CARE UNIT NURSE Work Phone: [facility] 11-27-2021 09:06-0400 SaO2% (BldA) [Mass fraction] 98 % Evita Jimenez TUG MASTER.NEONATAL INTENSIVE CARE UNIT NURSE Work Phone: [facility] 11-27-2021 09:06-0400 Systolic blood pressure 138 mm[Hg] Evita Jimenez TUG MASTER.NEONATAL INTENSIVE CARE UNIT NURSE Work Phone: [facility] Encounters Encounter Date Encounter Type Care Provider Facility Start: 11-13-2024 End: 11-13-2024 ambulatory Jackie Damon [facility] Start: 11-13-2024 End: 11-13-2024 Patient encounter procedure Jackie Damon MA [facility] Comment on above: Population Health Na vigation Outreach ([facility] ) Start: 10-10-2024 End: 10-10-2024 ambulatory Jackie Damon [facility] Start: 10-10-2024 End: 10-10-2024 Patient encounter procedure Jackie Vásquezlabestelle IYER [facility] Comment on above: Population Health Na vigation Outreach ([facility]/) Start: 10-09-2024 ambulatory Milady Gudla O[facility] Facili ty:[facility] Start: 10-06-2024 ambulatory Milady Gudla OLS Facili ty:[facility] Start: 08-28-2024 End: 08-28-2024 Refill Christina Edmonds APRN.KILN WORKER Work Phone: [facility] Comment on above: Refill Request Start: 08-17-2024 End: 08-17-2024 Telephone encounter Christina Blevinsr TUG MASTER.KILN WORKER Work Phone: [facility] Comment on above: Patient Question Start: 08-07-2024 End: 08-07-2024 Telephone encounter Christina Blevinsr TUG MASTER.KILN WORKER Work Phone: [address] [place] [address] Comment on above: Patient Update Start: 08-02-2024 End: 08-04-2024 Follow-up encounter Christina Grey TUG MASTER.KILN WORKER Work Phone: [facility] Start: 08-01-2024 End: 08-01-2024 ambulatory CHRISTINA BLEVINSR Facility:[facility] Start: 08-01-2024 End: 08-01-2024 Patient encounter procedure Christina Blevinsr TUG MASTER.KILN WORKER Work Phone: [facility] [place] Comment on above: Medicare annual well ness visit, subsequent (Primary Dx); Moderate dementia with other behavioral disturbance, unspecified dementia type (HCC); Vitamin B 12 deficiency; Type 2 diabetes mellitus without complication, without long-term current use of insulin (HCC); Acquired hypothyroidism; Vitamin D deficiency; Hypercholesteremia; Encounter for therapeutic drug monitoring; Skin tear of lower leg without complication, right, subsequent encounter Start: 07-28-2024 End: 08-01-2024 Telephone encounter Christina Edmonds APRN.KILN WORKER Work Phone: [facility] [place] Comment on above: Patient Update; proc ess began to get her admitted to [facility] Start: 07-24-2024 End: 07-24-2024 Refill Christina Edmonds TUG MASTER.KILN WORKER Work Phone: [address] [place] [address] Comment on above: Erroneous encounter- disregard Medication Problem Start: 07-19-2024 End: 07-19-2024 ambulatory [facility] Facility:[facility] Start: 07-19-2024 End: 07-19-2024 Patient encounter procedure Gemma Saeed APRN.KILN WORKER Work Phone: [facility] Comment on above: Skin tear of lower l eg without complication, initial encounter (Primary Dx) Start: 05-23-2024 End: 07-18-2024 Telephone encounter Jose Jenkins MD Work Phone: [facility] [place] Start: 05-17-2024 End: 05-17-2024 [facility] Facility:[facility] Start: 05-17-2024 End: 05-17-2024 Nursing evaluation of patient and report Al Nurse Work Phone: [facility] Comment on above: Vitamin B 12 deficie ncy (Primary Dx) Start: 05-15-2024 End: 05-15-2024 Refill Christina Edmonds TUG MASTER.KILN WORKER Work Phone: [facility] [place] Comment on above: Refill Request Start: 05-08-2024 End: 05-08-2024 ambulatory [facility] Facility:[facility] Start: 05-08-2024 End: 05-08-2024 Nursing evaluation of patient and report Mi Nurse Work Phone: [facility] [place] Comment on above: Vitamin B 12 deficie ncy (Primary Dx) Start: 05-01-2024 End: 05-01-2024 Nursing evaluation of patient and report Mi Nurse Work Phone: [facility] [place] Comment on above: Vitamin B 12 deficie ncy (Primary Dx) Start: 05-01-2024 End: 05-01-2024 ambulatory [facility] Facility:[facility] Start: 04-27-2024 End: 04-28-2024 Telephone encounter Jose Jenkins MD Work Phone: Geriatrics Comment on above: Results Orders Start: 04-26-2024 End: 04-26-2024 [facility] Facility:[facility] Start: 04-26-2024 End: 04-26-2024 Assmt & care planning pt w/cognitive impairment Jose Jenkins MD Work Phone: Geriatrics Comment on above: 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, unspecified dementia type (HCC) Start: 04-26-2024 End: 04-26-2024 [facility] Facility:[facility] Start: 04-25-2024 End: 04-25-2024 ambulatory DAGMAR TESTBUCKLIN Facility:[facility] Start: 04-25-2024 End: 04-25-2024 Patient encounter procedure Dagmar Ortiz Work Phone: Podiatry Comment on above: Onychomycosis (Prima ry Dx); Pain in toe of left foot; Pain in toe of right foot Start: 03-14-2024 End: [facility] Start: 03-14-2024 End: 03-14-2024 Patient encounter procedure Christina Grey TUG MASTER.KILN WORKER Work Phone: [facility] [place] Comment on above: 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, unspecified dementia type (HCC) (Primary Dx); Driving safety issue; Type 2 diabetes mellitus without complication, without long-term current use of insulin (HCC) Start: 03-10-2024 End: 03-10-2024 Refill Christina Grey TUG MASTER.KILN WORKER Work Phone: [facility] Comment on above: Refill Request Start: 02-10-2024 End: 02-11-2024 Refill Christina Grey TUG MASTER.KILN WORKER Work Phone: [facility] [place] Comment on above: Refill Request (Plea se read Rx notes) Medication Problem Start: 02-07-2024 End: 02-08-2024 Refill Christina Grey TUG MASTER.KILN WORKER Work Phone: [facility] [place] Comment on above: Refill Request Start: 01-25-2024 End: 01-25-2024 ambulatory DAGMAR ORTIZ Facility:[facility] Start: 01-25-2024 End: 01-25-2024 Patient encounter procedure Dagmar Angel Work Phone: Podiatry Comment on above: Onychomycosis (Prima ry Dx); Pain in toe of left foot; Pain in toe of right foot; Type 2 diabetes mellitus without complication, without long-term current use of insulin (HCC) Start: 12-09-2023 Refill Christina Grey TUG MASTER.KILN WORKER Work Phone: [facility] [place] Comment on above: Refill Request Start: 11-16-2023 Telephone encounter Christina Cleav er TUG MASTER.KILN WORKER Work Phone: [facility] [place] Start: 11-12-2023 End: 11-12-2023 Patient encounter procedure Christina Grey TUG MASTER.KILN WORKER Work Phone: [facility] [place] Comment on above: 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, unspecified dementia type (HCC) (Primary Dx); Type 2 diabetes mellitus without complication, without long-term current use of insulin (HCC); Acquired hypothyroidism; Encounter for therapeutic drug monitoring Start: 11-08-2023 Refill Christina Grey TUG MASTER.KILN WORKER Work Phone: [facility] Comment on above: Refill Request Start: 11-04-2023 Refill Christina Grey TUG MASTER.KILN WORKER Work Phone: [facility] [place] Comment on above: Refill Request Start: 10-21-2023 End: 10-21-2023 Patient encounter procedure Dagmar Cravenstephen Work Phone: Podiatry Comment on above: Onychomycosis (Prima ry Dx); Pain in toe of left foot; Pain in toe of right foot; Type 2 diabetes mellitus without complication, without long-term current use of insulin (HCC) Refill Request Start: 09-24-2023 Telephone encounter Christina barger APRN.CNP Work Phone: [facility] [place] Comment on above: Medication concern Start: 08-13-2023 End: 08-13-2023 Patient encounter procedure Christina Edmonds APRN.KILN WORKER Work Phone: [facility] [place] Comment on above: Paronychia of finger of left hand (Primary Dx); Moderate dementia with other behavioral disturbance, unspecified dementia type (HCC); Type 2 diabetes mellitus without complication, without long-term current use of insulin ([facility]) Start: 08-06-2023 Refill Christina Edmonds APRN.KILN WORKER Work Phone: [facility] Comment on above: Refill Request Start: 07-27-2023 End: 07-27-2023 Patient encounter procedure Christina Edmonds APRN.KILN WORKER Work Phone: [facility] [place] Comment on above: Paronychia of finger of left hand (Primary Dx) Start: 07-21-2023 Telephone encounter Pilar garcia APRN.KILN WORKER Work Phone: [facility] Start: 07-20-2023 End: 07-20-2023 Patient encounter procedure Dagmar Angel Work Phone: Podiatry Comment on above: Onychomycosis (Prima ry Dx); Type 2 diabetes mellitus without complication, without long-term current use of insulin (HCC); Pain in toe of left foot; Pain in toe of right foot; Venous insufficiency; Xerosis cutis Paronychia of finger of left hand (Primary Dx) Start: 07-17-2023 End: 07-17-2023 Patient encounter procedure Rena Romo APRN.KILN WORKER Work Phone: [facility] Comment on above: Paronychia of finger of left hand (Primary Dx); Infection, skin Start: 07-12-2023 End: 07-12-2023 Patient encounter procedure Christina Edmonds APRN.CNP Work Phone: [facility] [place] Comment on above: 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 Manzano Work Phone: [facility] Work Phone: Start: 06-20-2023 Non-patient / Non-visit Dr. Manzano Work Phone: [facility] Work Phone: Start: 06-19-2023 End: 06-22-2023 Evaluation and management of inpatient Dr. Artur Gallardo Work Phone: [facility] Work Phone: Start: 06-19-2023 End: 06-22-[address] Artur Gallardo Work Phone: [facility] Work Phone: Start: 06-19-2023 End: 06-19-2023 Patient encounter procedure Devin Carrasquillo MD Work Phone: [facility] Comment on above: Neck pain (Primary D x) Start: 02-27-2022 End: 02-27-2022 Patient encounter procedure Evita Jimenez APRN.NEONATAL INTENSIVE CARE UNIT NURSE Work Phone: [facility] [place] Comment on above: COVID-19 virus infec tion (Primary Dx); Screening for diabetic retinopathy; Encounter for immunization; Type 2 diabetes mellitus without complication, without long-term current use of insulin (HCC); Hypercholesteremia; Acquired hypothyroidism; Syncope, unspecified syncope type; Diarrhea, unspecified type; Memory problem Start: 02-02-2022 Non-patient / Non-visit Dr. Rosa Corbett Work Phone: [facility] Start: 02-02-2022 End: 02-04-2022 Evaluation and management of inpatient Dr. Jose Corbett Work Phone: [facility] Start: 02-02-2022 End: 02-04-[address] Jose Corbett Work Phone: [facility] Work Phone: Start: 01-29-2022 Telephone encounter Devin Iglesias MD Work Phone: [facility] Comment on above: Results (COVID+) Start: 01-29-2022 End: 01-29-2022 ambulatory Evita Jimenez TUG MASTER.NEONATAL INTENSIVE CARE UNIT NURSE Work Phone: [facility] [place] Comment on above: COVID-19 virus infec tion (Primary Dx) Start: 01-29-2022 End: 01-29-2022 Telemedicine consultation with patient Evita Jimenez APRN.NEONATAL INTENSIVE CARE UNIT NURSE Work Phone: [facility] Start: 01-28-2022 End: 01-28-2022 Patient encounter procedure Jackie Nunes TUG MASTER.KILN WORKER Work Phone: [facility] Comment on above: Close exposure to [place] VID-19 virus (Primary Dx) Start: 01-09-2022 End: 01-09-2022 Patient encounter procedure Rena Romo TUG MASTER.KILN WORKER Work Phone: [facility] Comment on above: Rash (Primary Dx); Skin lesion Start: 12-04-2021 Telephone encounter Evita charles TUG MASTER.NEONATAL INTENSIVE CARE UNIT NURSE Work Phone: [facility] [place] Comment on above: Results, Lab Start: 12-02-2021 Telephone encounter Evita charles TUG MASTER.NEONATAL INTENSIVE CARE UNIT NURSE Work Phone: [facility] [place] Comment on above: Results, Lab Start: 11-27-2021 End: 11-27-2021 Patient encounter procedure Evita Jimenez TUG MASTER.NEONATAL INTENSIVE CARE UNIT NURSE Work Phone: [facility] [place] Comment on above: Acquired hypothyroid ism (Primary Dx); Need for shingles vaccine; Screening for diabetic retinopathy; Screening for colon cancer; Encounter for immunization; Hypercholesteremia; Type 2 diabetes mellitus without complication, without long-term current use of insulin (HCC); Memory problem; Fungal nail infection Start: 11-03-2021 ambulatory Neema Mills MA [facility] [place] Comment on above: Population Health Na vigation Outreach (HCC ) Procedures Date Procedure Procedure Detail Performing Clinician Start: 06-21-2023 MRI of brain without contrast Dr. Artur Gallardo Work Phone: Start: 06-19-2023 Plain chest X-ray Dr. Artur Gallardo Work Phone: Start: 06-19-2023 CT of head without contrast Dr. Artur Gallardo Work Phone: Start: 06-19-2023 SARS-CoV-2, Influenza & RSV (PCR) Dr. Artur Gallardo Work Phone: Start: 02-02-2022 Plain chest X-ray Dr. Jose Corbett Work Phone: H/O: hysterectomy History of hysterectomy Dr. Jose Corbett Work Phone: Plan of Treatment Date Care Activity Detail Author Start: 10-11-2033 Urine microalbumin profile DTaP,Tdap,Td Vaccine (3 - Td or Tdap) [facility] Start: 08-01-2025 Hepatitis B surface antibody level LDL Cholesterol [facility] Start: 08-01-2025 Medicare Annual Wellness Visit Medicare Annual Wellness Visit [facility] Start: 01-08-2025 Influenza [facility] Start: 11-01-2024 Hemoglobin A1c measurement HbA1C [facility] Start: 09-11-2024 End: 09-11-2024 Patient encounter procedure [facility] Comment on above: 6 month follow up Start: 08-01-2024 End: 10-31-2024 25-hydroxyvitamin D3 [Mass/volume] in Serum or Plasma [facility] Comment on above: Expected: 08/01/2024, Expires: Start: 08-01-2024 End: 10-31-2024 Cobalamin (Vitamin B12) [Mass/volume] in Serum or Plasma [facility] Comment on above: Expected: 08/01/2024, Expires: Start: 08-01-2024 End: 10-31-2024 Comprehensive metabolic 2000 panel - Serum or Plasma [facility] Work Phone: Comment on above: Expected: 08/01/2024, Expires: Start: 08-01-2024 End: 10-31-2024 Hemoglobin A1c in Blood [facility] Comment on above: Expected: 08/01/2024, Expires: Start: 08-01-2024 End: 10-31-2024 LIPID PANEL, NONFASTING [facility] Comment on above: Expected: 08/01/2024, Expires: Start: 08-01-2024 End: 08-01-2024 Patient encounter procedure 08/01/2024 2:00 PM EDT Office Visit [facility] [place] [address] [place] [address] Christina Edmonds APRN.KILN WORKER [address] [place] [address] MEDICARE WELLNESS [facility] [place] Comment on above: MEDICARE WELLNESS Start: 07-25-2024 End: 07-25-2024 Patient encounter procedure 07/25/2024 1:45 PM EDT Office Visit Podiatry [address] [place] [address] Dagmar Ortiz [address] [address] 3 month follow up mail care Podiatry Comment on above: 3 month follow up mail care Start: 07-19-2024 Diabetic foot examination Diabetic Foot Exam [facility] Start: 07-11-2024 Hepatitis B screening Urine Albumin:Creatinine Ratio [facility] Start: 07-11-2024 Hepatitis B surface antibody level LDL Cholesterol [facility] Start: 05-24-2024 End: 05-24-2024 Nursing evaluation of patient and report 05/24/2024 2:15 PM EST Nurse Visit Family Medicine [place] [address] [facility] [place] [address] Nurse, Al [address] [place] [address] B12 [facility] [place] Comment on above: B12 Start: 05-22-2024 End: 05-22-2024 Nursing evaluation of patient and report 05/22/2024 1:15 PM EST Nurse Visit [facility] [place] [address] [place] [address] Nurse, Mi [address] [place] [address] B12 inj [facility] [place] Comment on above: B12 inj Start: 05-17-2024 End: 05-17-2024 Nursing evaluation of patient and report 05/17/2024 2:15 PM EST Nurse Visit [facility] [place] [address] [place] [address] Nurse, Mi [address] [place] [address] B12 [facility] [place] Comment on above: B12 Start: 05-15-2024 End: 05-15-2024 Nursing evaluation of patient and report 05/15/2024 2:00 PM EST Nurse Visit [facility] [place] [address] [place] [address] Nurse, Mi [address] [place] [address] B12 inj [facility] [place] Comment on above: B12 inj Start: 05-10-2024 Advance Directive Discussion Advance Directive Discussion [facility] Start: 05-08-2024 End: 05-08-2024 Nursing evaluation of patient and report 05/08/2024 1:15 PM EST Nurse Visit [facility] [place] [address] [place] [address] Nurse, Mi [address] [place] [address] B12 inj [facility] [place] Comment on above: B12 inj Start: 05-01-2024 End: 05-01-2024 Nursing evaluation of patient and report 05/01/2024 1:30 PM EST Nurse Visit [facility] [place] [address] [place] [address] Nurse, Mi [address] [place] [address] B12 inj [facility] [place] Comment on above: B12 inj Start: 04-26-2024 End: 04-26-2024 Patient encounter procedure 04/26/2024 2:30 PM EST Office Visit Geriatrics [address] [facility], [place] [id number] Jose Jenkins MD [address] [place] [address] Moderate dementia with other behavioral disturbance, unspecified dementia type (... [facility]iatrics Comment on above: Moderate dementia with other behavioral disturbance, unspecified dementia type (... Start: 04-26-2024 End: 07-26-2024 Cobalamin (Vitamin B12) [Mass/volume] in Serum or Plasma [facility] Work Phone: Comment on above: Expected: 04/26/2024, Expires: Start: 04-25-2024 End: 04-25-2024 Patient encounter procedure 04/25/2024 1:00 PM EST Office Visit Podiatry [address] [place] [address] Dagmar Ortiz [address] [place] [address] 3 month follow up Podiatry Comment on above: 3 month follow up Start: 03-28-2024 Covid-19 Vaccine ( season) Covid-19 Vaccine () [facility] Start: 03-14-2024 End: 03-14-2024 Patient encounter procedure 03/14/2024 1:20 PM EST Office Visit Internal Medicine [place] [address] [facility] [place] [address] Christina Edmonds APRN.KILN WORKER [address] [place], [place] [address] 4 month follow up [facility] [place] Comment on above: 4 month follow up Start: 02-12-2024 Hemoglobin A1c measurement HbA1C [facility] Start: 01-25-2024 End: 01-25-2024 Patient encounter procedure 01/25/2024 11:00 AM EDT Office Visit Podiatry [address] [place] [address] Dagmar Ortiz [address] [place] [address] 3 month follow up Podiatry Comment on above: 3 month follow up Start: 01-21-2024 Covid-19 Vaccine () Covid-19 Vaccine () [facility] Start: 01-09-2024 Influenza vaccination Influenza Vaccine (#1) [facility] Start: 11-12-2023 End: 02-11-2024 CBC W Auto Differential panel - Blood [facility] Work Phone: Comment on above: Expected: 11/12/2023, Expires: Start: 11-12-2023 End: 02-11-2024 Comprehensive metabolic 2000 panel - Serum or Plasma [facility] Comment on above: Expected: 11/12/2023, Expires: Start: 11-12-2023 End: 02-11-2024 Hemoglobin A1c in Blood [facility] Comment on above: Expected: 11/12/2023, Expires: Start: 11-12-2023 End: 02-11-2024 Thyrotropin [Units/volume] in Serum or Plasma [facility] Comment on above: Expected: 11/12/2023, Expires: Start: 11-12-2023 End: 02-11-2024 Thyroxine (T4) free [Mass/volume] in Serum or Plasma [facility] Comment on above: Expected: 11/12/2023, Expires: Start: 11-12-2023 End: 02-11-2024 Triiodothyronine (T3) Free [Mass/volume] in Serum or Plasma [facility] Comment on above: Expected: 11/12/2023, Expires: Start: 11-12-2023 End: 11-12-2023 Patient encounter procedure 11/12/2023 1:40 PM EDT Office Visit Internal Medicine [place] [address] [facility] [place] [address] Christina Edmonds APRN.KILN WORKER [address] [place] [address] 3 Month follow up [facility] [place] Comment on above: 3 Month follow up Start: 10-21-2023 End: 10-21-2023 Patient encounter procedure 10/21/2023 11:00 AM EDT Office Visit Podiatry [address] [place], [place] [address] Dagmar Ortiz [address] [place] [address] 3 month follow up Podiatry Comment on above: 3 month follow up Start: 10-12-2023 Hemoglobin A1c measurement HbA1C [facility] Start: 08-15-2023 Covid-19 Vaccine () Covid-19 Vaccine () [facility] Start: 07-17-2023 End: 10-16-2023 Bacteria identified in Wound by Culture ABSCESS AND WOUND CULTURE WITH GRAM STAIN Microbiology Routine Paronychia of finger of left hand Expected: 07/17/2023, Expires: 10/16/2023 [facility] Work Phone: Comment on above: Expected: 07/17/2023, Expires: Start: 07-12-2023 End: 10-11-2023 ALBUMIN/CREAT RATIO RND UR [facility] Work Phone: Comment on above: Expected: 07/12/2023, Expires: 4 Start: 07-12-2023 End: 10-11-2023 CBC W Auto Differential panel - Blood [facility] Work Phone: Comment on above: Expected: 07/12/2023, Expires: 4 Start: 07-12-2023 End: 10-11-2023 Comprehensive metabolic 2000 panel - Serum or Plasma [facility] Work Phone: Comment on above: Expected: 07/12/2023, Expires: Start: 07-12-2023 End: 10-11-2023 Hemoglobin A1c in Blood [facility] Work Phone: Comment on above: Expected: 07/12/2023, Expires: Start: 07-12-2023 End: 10-11-2023 LIPID PANEL, NONFASTING [facility] Work Phone: Comment on above: Expected: 07/12/2023, Expires: Start: 07-12-2023 End: 10-11-2023 Thyrotropin [Units/volume] in Serum or Plasma [facility] Work Phone: Comment on above: Expected: 07/12/2023, Expires: Start: 07-12-2023 End: 10-11-2023 Thyroxine (T4) free [Mass/volume] in Serum or Plasma [facility] Work Phone: Comment on above: Expected: 07/12/2023, Expires: Start: 07-12-2023 End: 10-11-2023 Triiodothyronine (T3) Free [Mass/volume] in Serum or Plasma [facility] Work Phone: Comment on above: Expected: 07/12/2023, Expires: Start: 06-22-2023 Patient discharge [facility] Start: 06-19-2023 Following clinical pathway protocol [facility] Start: 06-19-2023 Assessment of risk of venous thromboembolism [facility] Start: 06-19-2023 Care regimes management [facility] Start: 06-19-2023 Insertion of catheter into peripheral vein [facility] Start: 06-19-2023 Notification of physician [facility] Start: 06-19-2023 Providing care according to standard [facility] Start: 06-19-2023 Provision of activity privileges [facility] Start: 06-19-2023 Referral to service [facility] Start: 06-19-2023 [facility] Start: 06-19-2023 Admission procedure [facility] Start: 06-19-2023 Hospital admission, emergency, from emergency room, medical nature [facility] Start: 06-19-2023 Patient referral to dietitian [facility] Start: 06-10-2023 Covid-19 Vaccine () Covid-19 Vaccine () [facility] Start: 05-10-2023 Advance Directive Discussion Advance Directive Discussion [facility] Start: 05-10-2023 Depression Assessment Depression Assessment [facility] Start: 02-27-2023 3 comp foot exam completed DIABETIC FOOT EXAM [facility] Start: 02-27-2023 Diabetic foot examination Diabetic Foot Exam [facility] Start: 01-08-2023 Covid-19 Vaccine () Covid-19 Vaccine () [facility] Start: 12-01-2022 FECAL OCCULT BLOOD FECAL OCCULT BLOOD [facility] Start: 11-27-2022 3 comp foot exam completed DIABETIC FOOT EXAM [facility] Start: 11-27-2022 Hepatitis B surface antibody level LDL CHOLESTEROL [facility] Start: 05-30-2022 Hemoglobin A1c measurement HbA1C [facility] Start: 05-30-2022 Hemoglobin A1c/Hemoglobin.total in Blood HBA1C [facility] Start: 05-11-2022 End: 02-05-2023 ALBUMIN/CREAT RATIO RND UR ALBUMIN/CREAT RATIO RND UR Lab Routine Type 2 diabetes mellitus without complication, without long-term current use of insulin (HCC) Expected: 05/11/2022 (Approximate), Expires: 02/05/2023 [facility] Work Phone: Comment on above: Expected: 05/11/2022 (Approximate), Expi res: 02/05/2023 Start: 05-11-2022 End: 02-05-2023 CBC W Auto Differential panel - Blood CBC + DIFF Lab Routine Type 2 diabetes mellitus without complication, without long-term current use of insulin (HCC) Hypercholesteremia Acquired hypothyroidism Syncope, unspecified syncope type Diarrhea, unspecified type Expected: 05/11/2022 (Approximate), Expires: 02/05/2023 [facility] Work Phone: Comment on above: Expected: 05/11/2022 (Approximate), Expi res: 02/05/2023 Start: 05-11-2022 End: 02-05-2023 Comprehensive metabolic 2000 panel - Serum or Plasma COMP METABOLIC PANEL Lab Routine Type 2 diabetes mellitus without complication, without long-term current use of insulin (HCC) Hypercholesteremia Acquired hypothyroidism Expected: 05/11/2022 (Approximate), Expires: 02/05/2023 [facility] Work Phone: Comment on above: Expected: 05/11/2022 (Approximate), Expi res: 02/05/2023 Start: 05-11-2022 End: 02-05-2023 Hemoglobin A1c in Blood HGB A1C Lab Routine Type 2 diabetes mellitus without complication, without long-term current use of insulin (HCC) Expected: 05/11/2022 (Approximate), Expires: 02/05/2023 [facility] Work Phone: Comment on above: Expected: 05/11/2022 (Approximate), Expi res: 02/05/2023 Start: 05-11-2022 End: 02-05-2023 Lipid 1996 panel - Serum or Plasma LIPID PANEL BASIC Lab Routine Type 2 diabetes mellitus without complication, without long-term current use of insulin (HCC) Hypercholesteremia Expected: 05/11/2022 (Approximate), Expires: 02/05/2023 [facility] Work Phone: Comment on above: Expected: 05/11/2022 (Approximate), Expi res: 02/05/2023 Start: 05-11-2022 SHINGRIX VACCINE (2 of 3) SHINGRIX VACCINE (2 of 3) [facility] Comment on above: Postponed from 06/06/2007 (Insurance Cov erage) Start: 02-04-2022 Patient discharge [facility] Work Phone: Start: 02-03-2022 Verification routine [facility] Work Phone: Start: 02-03-2022 Following clinical pathway protocol [facility] Work Phone: Start: 02-03-2022 Assessment of risk of venous thromboembolism [facility] Work Phone: Start: 02-03-2022 Insertion of catheter into peripheral vein [facility] Work Phone: Start: 02-03-2022 Measuring intake and output [facility] Work Phone: Start: 02-03-2022 Oxygen therapy [facility] Work Phone: Start: 02-03-2022 Patient education [facility] Work Phone: Start: 02-03-2022 Providing care according to standard [facility] Work Phone: Start: 02-03-2022 Provision of activity privileges [facility] Work Phone: Start: 02-03-2022 Referral to occupational therapist [facility] Work Phone: Start: 02-03-2022 Referral to service [facility] Work Phone: Start: 02-03-2022 [facility] Work Phone: Start: 02-03-2022 Following clinical pathway protocol [facility] Work Phone: Start: 02-02-2022 Admission procedure [facility] Work Phone: Start: 02-02-2022 [facility] Work Phone: Start: 01-28-2022 End: 02-07-2022 SARS-CoV-2 (COVID-19) RNA [Presence] in Respiratory specimen by MOLLY with probe detection ASYMPTOMATIC ELECTIVE COVID-19 Microbiology Routine Close exposure to COVID-19 virus Expected: 01/28/2022, Expires: 02/07/2022 [facility] Work Phone: Comment on above: Expected: 01/28/2022, Expires: Start: 01-24-2022 Hepatitis B screening URINE ALBUMIN:CREATININE RATIO [facility] Start: 01-24-2022 Hepatitis B surface antibody level LDL CHOLESTEROL [facility] Start: 01-08-2022 Influenza vaccination [facility] Start: 11-27-2021 End: 01-27-2022 CBC W Auto Differential panel - Blood [facility] Work Phone: Comment on above: Expected: 11/27/2021, Expires: 2 Start: 11-27-2021 End: 01-27-2022 Cobalamin (Vitamin B12) [Mass/volume] in Serum or Plasma VITAMIN B12 BLOOD Lab Routine Memory problem Expected: 11/27/2021, Expires: 01/27/2022 [facility] Work Phone: Comment on above: Expected: 11/27/2021, Expires: 2 Start: 11-27-2021 End: 01-27-2022 Comprehensive metabolic 2000 panel - Serum or Plasma [facility] Work Phone: Comment on above: Expected: 11/27/2021, Expires: 2 Start: 11-27-2021 End: 01-27-2022 Hemoglobin A1c in Blood [facility] Work Phone: Comment on above: Expected: 11/27/2021, Expires: 2 Start: 11-27-2021 End: 01-27-2022 Lipid 1996 panel - Serum or Plasma [facility] Work Phone: Comment on above: Expected: 11/27/2021, Expires: 2 Start: 11-27-2021 End: 01-27-2022 Thyrotropin [Units/volume] in Serum or Plasma [facility] Work Phone: Comment on above: Expected: 11/27/2021, Expires: 2 Start: 11-27-2021 Urine microalbumin profile DTAP,TDAP,TD (2 - Td or Tdap) [facility] Comment on above: Postponed from 09/25/2020 (Insurance Cov erage) Start: 11-05-2021 End: 01-05-2022 Hemoglobin A1c in Blood HGB A1C Lab Routine Type 2 diabetes mellitus without complication, without long-term current use of insulin (HCC) Expected: 11/05/2021 (Approximate), Expires: 01/05/2022 [facility] Work Phone: Comment on above: Expected: 11/05/2021 (Approximate), Expi res: 01/05/2022 Start: 11-05-2021 End: 01-05-2022 SCHEDULE LAB TESTING SCHEDULE LAB TESTING Lab Routine Type 2 diabetes mellitus without complication, without long-term current use of insulin (HCC) Expected: 11/05/2021 (Approximate), Expires: 01/05/2022 [facility] Work Phone: Comment on above: Expected: 11/05/2021 (Approximate), Expi res: 01/05/2022 Start: 10-04-2021 COVID-19 VACCINE (5 - Booster for Pfizer series) COVID-19 VACCINE (5 - Booster for Pfizer series) [facility] Start: 07-24-2021 Hemoglobin A1c/Hemoglobin.total in Blood HBA1C [facility] Start: 05-10-2021 ADVANCE DIRECTIVE DISCUSSION ADVANCE DIRECTIVE DISCUSSION [facility] Start: 01-07-2021 3 comp foot exam completed DIABETIC FOOT EXAM [facility] Start: 01-01-2021 COVID-19 VACCINE (3 - Booster for Pfizer series) COVID-19 VACCINE (3 - Booster for Pfizer series) [facility] Start: 09-25-2020 Urine microalbumin profile [facility] Start: 12-20-2019 FECAL OCCULT BLOOD FECAL OCCULT BLOOD [facility] Start: 06-03-2019 Glaucoma screening Dilated Retinal Exam [facility] Start: 06-03-2019 Hepatitis C antibody, confirmatory test DILATED RETINAL EXAM [facility] Start: 06-06-2007 SHINGRIX VACCINE (2 of 3) SHINGRIX VACCINE (2 of 3) [facility] Hemoglobin.gastroint estin al.lower [Presence] in Stool by Immunoassay FECAL OCCULT BLOOD TEST Lab Routine Screening for colon cancer Ordered: 11/27/2021 [facility] Work Phone: Comment on above: Ordered: 11/27/2021 Patient referral [facility] Work Phone: PFIZER-BIONTECH COVI D-19 VACCINE, AGE 12+ YR (HARRIS TOP) PFIZER-BIONTECH COVID-19 VACCINE, AGE 12+ YR (HARRIS TOP) Immunization/Injection Routine Encounter for immunization Ordered: 11/27/2021 [facility] Work Phone: Comment on above: Ordered: 11/27/2021 Tdap vaccine 7 yrs/> im TDAP VAC CINE AGE 7+ IM Immunization/Injection Routine Encounter for immunization 1 Occurrences starting 02/27/2022 [facility] Work Phone: Comment on above: 1 Occurrences starting 02/27/2022 End: 07-18-2024 XR Cervical spine AP and Lateral and oblique XR CERV OTHER 4V AP/LAT/OBL Radiology Routine Neck pain 1 Occurrences starting 06/19/2023 until 07/18/2024 [facility] Work Phone: Comment on above: 1 Occurrences starting 06/19/2023 until 07/18/2024 [facility] Immunizations Immunization Date Immunization Notes Care Provider Fa [facility] 01-12-2024 influenza, high dose seasonal, preservative-free Christina Grey TUG MASTER.KILN WORKER Work Phone: [facility] 01-12-2024 influenza virus vaccine, unspecified formulation Jackie Damon [facility] 11-26-2023 COVID-19 vaccine, ag e 12+ yr (MODERNA) Christina Grey TUG MASTER.KILN WORKER Work Phone: [facility] 10-12-2023 tetanus toxoid, redu binta diphtheria toxoid, and acellular pertussis vaccine, adsorbed Christina Grey TUG MASTER.KILN WORKER Work Phone: [facility] 05-21-2023 respiratory syncytia l virus (RSV) vaccine, adjuvanted (AREXVY) Christina Grey TUG MASTER.KILN WORKER Work Phone: [facility] Work Phone: 04-15-2023 COVID-19 vaccine, ag e 12+ yr, bivalent (MODERNA) Christina Grey TUG MASTER.KILN WORKER Work Phone: [facility] Work Phone: 04-15-2023 COVID-19 vaccine, ag e 6 mo - 11 yr, 2022-24 season (MODERNA) Christina Grey TUG MASTER.KILN WORKER Work Phone: [facility] 04-15-2023 influenza (HD-IIV4) vaccine, age 65+ yr, high dose, quadrivalent, PF (FLUZONE HIGH-DOSE) Christina Edmonds TUG MASTER.KILN WORKER Work Phone: [facility] Work Phone: 04-15-2023 influenza virus vaccine, unspecified formulation Christina Edmonds TUG MASTER.KILN WORKER Work Phone: [facility] 02-25-2022 influenza, high dose seasonal, preservative-free Evita Jimenez TUG MASTER.NEONATAL INTENSIVE CARE UNIT NURSE Work Phone: [facility] Work Phone: 08-01-2020 Covid (Pfizer) Dr. Jose jaeger Work Phone: [facility] 07-11-2020 [facility] ([facility] 06-28-2019 influenza, high dose seasonal, preservative-free Neema Mills MA [facility] 03-11-2018 influenza, high dose seasonal, preservative-free Neema Mills [facility] Work Phone: 12-10-2017 pneumococcal conjuga te vaccine, 13 valent Neema Mills MA [facility] 06-07-2017 influenza, high dose seasonal, preservative-free Neema Mills MA [facility] 05-12-2016 influenza, high dose seasonal, preservative-free Neema Mills MA [facility] 04-08-2011 pneumococcal polysaccharide vaccine, 23 valent Neema Mills MA [facility] 09-25-2010 tetanus toxoid, redu binta diphtheria toxoid, and acellular pertussis vaccine, adsorbed Neema Mills MA [facility] 04-11-2007 zoster vaccine, live Neema Mills [facility] NEGATED: Highlighted row has not occurred!11-27-2021 COVID-19 vaccine, age 12+ yr (PFIZER-BIONTECH - [place]IS TOP) Evita Jimenez TUG MASTER.NEONATAL INTENSIVE CARE UNIT NURSE Work Phone: [facility] Work Phone: Comment on above: Deferred: Postponed Payers Date Payer Category Payer Self-pay [id number] 2011 Private Health Insurance [employer] A ETNA MEDICARE SUPPLEMENT [id number] 2011-Present [phone] [address] [address] [place] [address] Indemnity [id number] 2011 Private Health Insurance [id number] 2011 Private Health Insurance [id number] 2005 Medicare MEDICARE MEDICAR E A AND B [id number] 2005-Present [phone] [address] [address] [place] [address] Medicare [id number] 2005 Medicare [id number] 2005 Medicare [id number] Unknown [id number] Unknown [id number] Social History Date Type Detail Facility Start: 10-30-2015 End: 01-09-2022 Tobacco smoking status NHIS Never smoked tobacco [facility] Start: 10-30-2015 End: 01-09-2022 Tobacco use and exposure Smokeless tobacco non-user [facility] Start: 02-14-2021 End: 08-13-2023 Alcohol intake Not Asked [facility] Start: 1940 Sex Assigned At Not on file [facility] Start: 11-17-2021 End: 02-27-2022 Exposure to SARS-CoV-2 (event) Not sure [facility] Work Phone: Start: 01-19-2022 End: 01-29-2022 Exposure to SARS-CoV-2 (event) Unable to assess [facility] Work Phone: Start: 02-03-2022 End: 06-19-2023 Tobacco smoking status NHIS Unknown if ever smoked [facility] Start: 02-02-2022 Non-smoker [facility] Start: 1940 Sex Assigned At Female [facility] Start: 06-19-2023 End: 07-20-2023 History of Social function [facility] Work Phone: Start: 06-19-2023 End: 07-20-2023 Tobacco use panel [facility] Work Phone: Adult Depression Screening Assessment 0 [facility] Work Phone: Start: 10-21-2023 End: 08-01-2024 Alcohol intake Lifetime non-drinker (finding) [facility] Start: 04-26-2024 Education 13 [facility] Goals Date Patient Goal Desired Activity /State Functional Status Date Assessment Result Facility 06-22-2023 Functional status Ambulates;Bathroom Priv ilege [facility] Work Phone: 02-04-2022 Functional status Bedrest [facility] Work Phone: 02-03-2022 Functional status None [facility] Work Phone: Mental Status Date Assessment Result Facility 06-22-2023 Cognitive function Voice/Name [facility] Work Phone: 02-04-2022 Cognitive function Voice/Name [facility] Work Phone: Clinical Notes 11-16-2016 to 11-13-2024 Jackie Damon MA - 11/13/2024 2:03 PM Jackie Arnett MA - 11/13/2024 1:04 PM Jackie Arnett MA - 10/10/2024 9:04 AM Christina Cuevas APRN.CNP - 08/01/2024 2:05 PM EDT Note Date & Type Note Facility 11-13-2024 Note HNO ID: [id number] Author: JACKIE DAMON MA Service: ? Author Type: County Adviser Type: Progress Notes Filed: 11/13/2024 14:07 Note Text: POPULATION HEALTH NAVIGATION OUTREACH Action/FYI Patient is in a SNF. and he was her caregiver. See note from Christina Edmonds CNP Reason for Outreach Care Gap/HCC or Scheduling Wellness Visits Care Gaps due: Medicare Annual Wellness Visit Patient Contacted: Unable or unnecessary to reach patient: Outside PCP Patient is in a SNF Navigation Signature: Jackie Damon MA November 13, 2024 2:03 PM [facility] 11-13-2024 History of Present illness Narrative POPULATION HEALTH NAVIGATION OUTREACH Action/FYI Patient is in a SNF. and he was her caregiver. See note from Christina Edmonds CNP Reason for Outreach Care Gap/HCC or Scheduling Wellness Visits Care Gaps due: Medicare Annual Wellness Visit Patient Contacted: Unable or unnecessary to reach patient: Outside PCP Patient is in a SNF Navigation Signature: Jackie Damon MA November 13, 2024 2:03 PM POPULATION HEALTH NAVIGATION OUTREACH Action/FYI Unable to VM. The phone is out of service. No mychart mailed letter Topic Due (Y or N) Comments Medicare Wellness y PCP Follow up y Colorectal Cancer Screening Controlling Blood Pressure A1C y HCC Flu Vaccine Care Everywhere Reviewed MyChart Activation Updated Appointment Note Reason for Outreach Care Gap/HCC or Scheduling Wellness Visits Care Gaps due: Medicare Annual Wellness Visit HBA1C Patient Contacted: Unable or unnecessary to reach patient: Unable to leave message Letter mailed Navigation Signature: Jackie Damon MA November 13, 2024 1:05 PM documented in this encounter [facility] 11-13-2024 Note HNO ID: [id number] Author: JACKIE DAMON MA Service: ? Author Type: County Adviser Type: Progress Notes Filed: 11/13/2024 14:07 Note Text: POPULATION HEALTH NAVIGATION OUTREACH Action/FYI Unable to VM. The phone is out of service. No mychart mailed letter Topic Due (Y or N) Comments Medicare Wellness y PCP Follow up y Colorectal Cancer Screening Controlling Blood Pressure A1C y HCC Flu Vaccine Care Everywhere Reviewed MyChart Activation Updated Appointment Note Reason for Outreach Care Gap/HCC or Scheduling Wellness Visits Care Gaps due: Medicare Annual Wellness Visit HBA1C Patient Contacted: Unable or unnecessary to reach patient: Unable to leave message Letter mailed Navigation Signature: Jackie Damon MA November 13, 2024 1:05 PM [facility] 11-13-2024 Note Patient Outreach (NE TNAV) ALEXANDER XIAO ([id number]) 1940 F Date Time Provider Department 11/13/24 JACKIE DAMON NETKELSEYV During your visit today, we recorded the following information about you: Jackie Damon MA 11/13/2024 2:07 PM Signed POPULATION HEALTH NAVIGATION OUTREACH Action/FYI Unable to VM. The phone is out of service. No mychart mailed letter Topic Due (Y or N) Comments Medicare Wellness y PCP Follow up y Colorectal Cancer Screening Controlling Blood Pressure A1C y HCC Flu Vaccine Care Everywhere Reviewed MyChart Activation Updated Appointment Note Reason for Outreach Care Gap/HCC or Scheduling Wellness Visits Care Gaps due: Medicare Annual Wellness Visit HBA1C Patient Contacted: Unable or unnecessary to reach patient: Unable to leave message Letter mailed Navigation Signature: Jackie Damon MA November 13, 2024 1:05 PM Jackie Damon MA 11/13/2024 2:07 PM Signed POPULATION HEALTH NAVIGATION OUTREACH Action/FYI Patient is in a SNF. and he was her caregiver. See note from Christina Edmonds CNP Reason for Outreach Care Gap/HCC or Scheduling Wellness Visits Care Gaps due: Medicare Annual Wellness Visit Patient Contacted: Unable or unnecessary to reach patient: Outside PCP Patient is in a SNF Navigation Signature: Jackie Damon MA November 13, 2024 2:03 PM Allergies As of Date: 11/13/2024 (No Known Allergies) Date Reviewed: 08/01/2024 Reviewed by: Christina Edmonds APRN.CNP - Fully Assessed Reason for Visit: Population Health Navigation Outreach [3910] Cmt: BENOIT SHI Primary Visit Diagnosis:Type 2 diabetes mellitus without complication, without long-term current use of insulin (HCC) [E11.9] Prescriptions as of 11/13/2024 - QUEtiapine (SEROQUEL) 50 mg tablet Take 1 tablet by mouth daily at bedtime. - melatonin 10 mg tab Take 1 tablet by mouth daily at bedtime. - busPIRone (BUSPAR) 5 mg tablet Take 1 tablet by mouth two times a day. - cholecalciferol (VITAMIN D-3) 50 mcg (2,000 unit) tablet Take 1 tablet by mouth once daily. - cyanocobalamin 1,000 mcg/mL Inject 1 mL intramuscularly one time a week. - donepezil (ARICEPT) 10 mg tablet Take 1 tablet by mouth daily at bedtime. - metFORMIN (GLUCOPHAGE) 500 mg tablet Take 2 tablets by mouth daily with breakfast AND 1 tablet daily with dinner. - levothyroxine (SYNTHROID) 112 mcg tablet Take 1 tablet by mouth once daily. For 6 days of the week. - simvastatin (ZOCOR) 40 mg tablet Take 1 tablet by mouth daily at bedtime. - Underpads 30 X 30 " pads 1 Each once daily. 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 Author Type: County Adviser Type: Progress Notes Filed: 10/10/2024 09:13 Note Text: POPULATION HEALTH NAVIGATION OUTREACH Action/FYI Reschedule missed appt for 6 month f/u Invalid number no mychart letter mailed Topic Due (Y or N) Comments Medicare Wellness PCP Follow up y Colorectal Cancer Screening Controlling Blood Pressure A1C HCC Flu Vaccine Care Everywhere Reviewed MyChart Activation Updated Appointment Note Reason for Outreach Care Gap/HCC or Scheduling Wellness Visits Care Gaps due: Follow-up Appointment Patient Contacted: Unable or unnecessary to reach patient: Unable to leave message Letter mailed Navigation Signature: Jackie Damon MA October 10, 2024 9:04 AM [facility] 10-10-2024 History of Present illness Narrative POPULATION HEALTH NAVIGATION OUTREACH Action/FYI Reschedule missed appt for 6 month f/u Invalid number no mychart letter mailed Topic Due (Y or N) Comments Medicare Wellness PCP Follow up y Colorectal Cancer Screening Controlling Blood Pressure A1C HCC Flu Vaccine Care Everywhere Reviewed MyChart Activation Updated Appointment Note Reason for Outreach Care Gap/HCC or Scheduling Wellness Visits Care Gaps due: Follow-up Appointment Patient Contacted: Unable or unnecessary to reach patient: Unable to leave message Letter mailed Navigation Signature: Jackie Damon MA October 10, 2024 9:04 AM documented in this encounter [facility] 10-10-2024 Note Patient Outreach (TRISTA GALVEZ) ALEXANDER XIAO ([id number]) 1940 F Date Time Provider Department 10/10/24 JACKIE DAMON During your visit today, we recorded the following information about you: Jackie Damon MA 10/10/2024 9:13 AM Addendum POPULATION HEALTH NAVIGATION OUTREACH Action/FYI Reschedule missed appt for 6 month f/u Invalid number no mychart letter mailed Topic Due (Y or N) Comments Medicare Wellness PCP Follow up y Colorectal Cancer Screening Controlling Blood Pressure A1C HCC Flu Vaccine Care Everywhere Reviewed MyChart Activation Updated Appointment Note Reason for Outreach Care Gap/HCC or Scheduling Wellness Visits Care Gaps due: Follow-up Appointment Patient Contacted: Unable or unnecessary to reach patient: Unable to leave message Letter mailed Navigation Signature: Jackie Damon MA October 10, 2024 9:04 AM Allergies As of Date: 10/10/2024 (No Known Allergies) Date Reviewed: 08/01/2024 Reviewed by: Christina Edmonds APRN.KILN WORKER - Fully Assessed Reason for Visit: Population Health Navigation Outreach [3910] Cmt: BENOIT CASTRO PCSA Prescriptions as of 10/10/2024 - QUEtiapine (SEROQUEL) 50 mg tablet Take 1 tablet by mouth daily at bedtime. - melatonin 10 mg tab Take 1 tablet by mouth daily at bedtime. - busPIRone (BUSPAR) 5 mg tablet Take 1 tablet by mouth two times a day. - cholecalciferol (VITAMIN D-3) 50 mcg (2,000 unit) tablet Take 1 tablet by mouth once daily. - cyanocobalamin 1,000 mcg/mL Inject 1 mL intramuscularly one time a week. - donepezil (ARICEPT) 10 mg tablet Take 1 tablet by mouth daily at bedtime. - metFORMIN (GLUCOPHAGE) 500 mg tablet Take 2 tablets by mouth daily with breakfast AND 1 tablet daily with dinner. - levothyroxine (SYNTHROID) 112 mcg tablet Take 1 tablet by mouth once daily. For 6 days of the week. - simvastatin (ZOCOR) 40 mg tablet Take 1 tablet by mouth daily at bedtime. - Underpads 30 X 30 " pads 1 Each once daily. 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] 07/12/2023 Vitamin B 12 deficiency [E53.8] 08/01/2024 Letter Text Encounter Status:Closed by JACKIE DAMON on 10/10/24 [facility] 08-28-2024 Telephone encounter Note Prescription Refill Information The patient has been identified by name and date of : Yes Caregiver verified no other encounters exist for this prescription request: Yes Caregiver confirmed with patient/requestor that no other refills are due, in the near future, with this provider at this time: Yes The last office visit in the department: 08-01-24 Does the patient have a future office visit with this provider/department: Yes Requested Prescriptions Pending Prescriptions Disp Refills QUEtiapine (SEROQUEL) 50 mg tablet 90 tablet 0 Sig: Take 1 tablet by mouth daily at bedtime. melatonin 10 mg tab 90 tablet 0 Sig: Take 1 tablet by mouth daily at bedtime. busPIRone (BUSPAR) 5 mg tablet 180 tablet 0 Sig: Take 1 tablet by mouth two times a day. Esther Gutiérrez August 28, 2024 10:11 AM [facility] 08-28-2024 Miscellaneous Notes Prescription Refill Information The patient has been identified by name and date of : Yes Caregiver verified no other encounters exist for this prescription request: Yes Caregiver confirmed with patient/requestor that no other refills are due, in the near future, with this provider at this time: Yes The last office visit in the department: 08-01-24 Does the patient have a future office visit with this provider/department: Yes Requested Prescriptions Pending Prescriptions Disp Refills QUEtiapine (SEROQUEL) 50 mg tablet 90 tablet 0 Sig: Take 1 tablet by mouth daily at bedtime. melatonin 10 mg tab 90 tablet 0 Sig: Take 1 tablet by mouth daily at bedtime. busPIRone (BUSPAR) 5 mg tablet 180 tablet 0 Sig: Take 1 tablet by mouth two times a day. Esther Gutiérrez August 28, 2024 10:11 AM documented in this encounter [facility] 08-17-2024 Telephone encounter Note Leatha with [facility] calls to review patient medications to see if there is anything patient has been on in the past that has helped her with anxiety. is currently in the hospital and patient is fearful and current medications are not resolving symptoms. Reviewed medications past and present. Leatha specifically asking about lorazepam. No record of patient ever having being prescribed that through us. Leatha to pass information on to house doctor at [facility] to see how they want to proceed with medication management. Tamara Michelle RN [facility] 08-17-2024 Miscellaneous Notes Leatha with [facility] calls to review patient medications to see if there is anything patient has been on in the past that has helped her with anxiety. is currently in the hospital and patient is fearful and current medications are not resolving symptoms. Reviewed medications past and present. Leatha specifically asking about lorazepam. No record of patient ever having being prescribed that through us. Leatha to pass information on to house doctor at [facility] to see how they want to proceed with medication management. Tamara Michelel RN documented in this encounter [facility] 08-07-2024 Telephone encounter Note Signed encounter form has been faxed. [facility] 08-07-2024 Miscellaneous Notes Signed encounter form has been faxed. Please send signed encounter, thanks! Patient chema Fofana calling back [facility] needs an order to discontinue the Vitamin B 12 injections. Spoke with chema Fofana gave information provided. Pt voices understanding. B12 has returned to with in normal limits, no need to continue these while in [facility], we can resume them once she follows back up with our office. Chema Fofana is calling as he received a call from [facility] in regards to the Vit B-12 inj and if patient should be getting this at [facility]. Please advise Brigido documented in this encounter [facility] 08-07-2024 Telephone encounter Note Please send signed encounter, thanks! [facility] 08-07-2024 Telephone encounter Note Patient chema Fofana calling back [facility] needs an order to discontinue the Vitamin B 12 injections. [facility] 08-07-2024 Telephone encounter Note Spoke with chema Brigido gave information provided. Pt voices understanding. [facility] 08-07-2024 Telephone encounter Note B12 has returned to with in normal limits, no need to continue these while in [facility], we can resume them once she follows back up with our office. [facility] 08-07-2024 Telephone encounter Note Chema Fofana is calling as he received a call from [facility] in regards to the Vit B-12 inj and if patient should be getting this at [facility]. Please advise Brigido [facility] 08-04-2024 Telephone encounter Note Chema Fofana aware of new order. Encounter faxed to [facility] to update their record of order. [facility] 08-04-2024 Miscellaneous Notes Chema Fofana aware of new order. Encounter faxed to [facility] to update their record of order. Please call and let family know that labs are back and most significantly show a low vitamin d level. I am sending in a vitamin D supplement for her to add to her daily medications. documented in this encounter [facility] 08-02-2024 Telephone encounter Note Please call and let family know that labs are back and most significantly show a low vitamin d level. I am sending in a vitamin D supplement for her to add to her daily medications. [facility] 08-01-2024 Note HNO ID: [id number] Author: CHRISTINA EDMONDS APRN.CNP Service: ? Author Type: Nurse Practitioner Type: Progress Notes Filed: 08/01/2024 14:44 Note Text: Alexander Xiao is a 83 year old female here for a Medicare wellness visit. Medicare Health Risk Assessment General Health Okay Exercise: Minutes/Day No regular routine Exercise: Days/Week No regular routine Alcohol: Daily Use N/a Alcohol: Drinks/Day N/a Alcohol: 6 or more drinks N/a Feel off balance No Concerns: Teeth/Dentures No Concerns: Sexual function No Troubled by feelings Sometimes Frequency: Eating healthy diet Likes [employer] ADLs requiring help Yes Safety precautions in home/vehicle Yes Smoke, vape, chews tobacco No Difficulty hearing No Difficulty seeing No Current Providers Specialists: I have reviewed specialist-related care of the patient in the medical record. Current care team: Patient Care Team: Christina Edmonds APRN.CNP as PCP - General (Internal Medicine) Dr. Jenkins for geriatrics Dr. Ortiz for podiatry Medical/Family history review Reviewed and updated problem list, medical/surgical/family/social history, medications, and allergies. Opioid use review Opioid Medications (last 90 days) No data to display Anxiety/Depression screening Recommendation: continuing current treatment plan Cognitive screening Cognitive screening reviewed and Patient has known cognitive impairment. Functional Observation Was the patient's Timed Up AND Go test unsteady or >= 12 seconds? No Advance Care Planning Surrogate decision maker and/or advance care plan documented Measurements BP 120/68 Pulse 80 Ht 173 cm (5' 8.11") Wt 66.8 kg (147 lb 4.3 oz) SpO2 98% BMI 22.32 kg/m? Vision Screening: Declines visual acuity screen SUBJECTIVE Alexander Xiao is a 83 year old female here today for a check up on her medical problems. Chief Complaint Patient presents with: Medicare Wellness Exam: only concern is memory worsening getting lost having trouble finding home and then looking for Robert who is currently in rehab HPI Alexander is a 83-year-old female, with a history of memory issues, presenting for follow-up. Accompanied by her niece and nephew. Alexander was last seen on 03/14 and had a follow-up with Dr. Jenkins with geriatrics on 04/26 to address dementia. Since then, she has been working on increasing water intake and ensuring medication adherence. She continues to experience memory difficulties and relies on writing things down to remember tasks and events and care from her . Her , Robert, recently underwent surgery and is currently in rehabilitation at [facility], which has been a significant adjustment for her. Family has spoke with admissions there and has been able to arrange for her to go to [facility] for respite care and stay in a room with Robert. Alexander had a skin tear on her leg after sliding out of her [id number]'s truck. The wound is reportedly improving and is not causing pain. She has been using bacitracin ointment for the wound. She has a history of low B12 and vitamin D levels. She had breakfast around 1030 today and has not yet had lunch. The patient/family consented to the use of NuLabel software for draft documentation of the visit consistent with [facility]?s Notice of Privacy Practices. Her medications were reviewed today and her list is now up to date. Medications Current Outpatient Medications Medication Sig busPIRone (BUSPAR) 5 mg tablet Take 1 tablet by mouth two times a day. cyanocobalamin 1,000 mcg/mL Inject 1 mL intramuscularly one time a week. donepezil (ARICEPT) 10 mg tablet Take 1 tablet by mouth daily at bedtime. metFORMIN (GLUCOPHAGE) 500 mg tablet Take 2 tablets by mouth daily with breakfast AND 1 tablet daily with dinner. QUEtiapine (SEROQUEL) 50 mg tablet Take 1 tablet by mouth daily at bedtime. levothyroxine (SYNTHROID) 112 mcg tablet Take 1 tablet by mouth once daily. For 6 days of the week. melatonin 10 mg tab Take 1 tablet by mouth daily at bedtime. simvastatin (ZOCOR) 40 mg tablet Take 1 tablet by mouth daily at bedtime. Underpads 30 X 30 " pads 1 Each once daily. Current Facility-Administered Medications Medication Dose Route Frequency cyanocobalamin 1,000 mcg injection 1,000 mcg INTRAMUSCULAR q 1 MONTH ALLERGIES No Known Allergies ACTIVE PROBLEM LIST Moderate Dementia (Hcc) - 07/12/2023 Hypothyroidism Hypercholesteremia Dm (Diabetes Mellitus) (Hcc) Social History Tobacco Use Smoking status: Never Smokeless tobacco: Never Vaping Use Vaping status: Never Used Substance Use Topics Alcohol use: Never Drug use: Never Review of Systems OBJECTIVE BP 120/68 Pulse 80 Ht 5' 8.11" (1.73m) Wt 147 lb 4.3 oz (66.8kg) SpO2 98% BMI 22.32 kg/(m2). Physical Exam Vitals and nursing note reviewed. Constitutional: General: She is awake. She is not in acute distress. Appearan (more content not included)... [facility] 08-01-2024 History of Present illness Narrative Images from the original note were not included. Alexander Xiao is a 83 year old female here for a Medicare wellness visit. Medicare Health Risk Assessment General Health Okay Exercise: Minutes/Day No regular routine Exercise: Days/Week No regular routine Alcohol: Daily Use N/a Alcohol: Drinks/Day N/a Alcohol: 6 or more drinks N/a Feel off balance No Concerns: Teeth/Dentures No Concerns: Sexual function No Troubled by feelings Sometimes Frequency: Eating healthy diet Likes [employer] ADLs requiring help Yes Safety precautions in home/vehicle Yes Smoke, vape, chews tobacco No Difficulty hearing No Difficulty seeing No Current Providers Specialists: I have reviewed specialist-related care of the patient in the medical record. Current care team: Patient Care Team: Christina Edmonds APRN.CNP as PCP - General (Internal Medicine) Dr. Jenkins for geriatrics Dr. Ortiz for podiatry Medical/Family history review Reviewed and updated problem list, medical/surgical/family/social history, medications, and allergies. Opioid use review Opioid Medications (last 90 days) No data to display Anxiety/Depression screening Recommendation: continuing current treatment plan Cognitive screening Cognitive screening reviewed and Patient has known cognitive impairment. Functional Observation Was the patient's Timed Up & Go test unsteady or >= 12 seconds? No Advance Care Planning Surrogate decision maker and/or advance care plan documented Measurements BP 120/68 Pulse 80 Ht 173 cm (5' 8.11") Wt 66.8 kg (147 lb 4.3 oz) SpO2 98% BMI 22.32 kg/m Vision Screening: Declines visual acuity screen SUBJECTIVE Alexander Xiao is a 83 year old female here today for a check up on her medical problems. Chief Complaint Patient presents with: Medicare Wellness Exam: only concern is memory worsening getting lost having trouble finding home and then looking for Robert who is currently in rehab HPI Alexander is a 83-year-old female, with a history of memory issues, presenting for follow-up. Accompanied by her niece and nephew. Alexander was last seen on 03/14 and had a follow-up with Dr. Jenkins with geriatrics on 04/26 to address dementia. Since then, she has been working on increasing water intake and ensuring medication adherence. She continues to experience memory difficulties and relies on writing things down to remember tasks and events and care from her . Her , Robert, recently underwent surgery and is currently in rehabilitation at [facility], which has been a significant adjustment for her. Family has spoke with admissions there and has been able to arrange for her to go to [facility] for respite care and stay in a room with Robert. Alexander had a skin tear on her leg after sliding out of her jswbame-ib-cyv's truck. The wound is reportedly improving and is not causing pain. She has been using bacitracin ointment for the wound. She has a history of low B12 and vitamin D levels. She had breakfast around 1030 today and has not yet had lunch. The patient/family consented to the use of NuLabel software for draft documentation of the visit consistent with [facility] s Notice of Privacy Practices. Her medications were reviewed today and her list is now up to date. Medications Current Outpatient Medications Medication Sig busPIRone (BUSPAR) 5 mg tablet Take 1 tablet by mouth two times a day. cyanocobalamin 1,000 mcg/mL Inject 1 mL intramuscularly one time a week. donepezil (ARICEPT) 10 mg tablet Take 1 tablet by mouth daily at bedtime. metFORMIN (GLUCOPHAGE) 500 mg tablet Take 2 tablets by mouth daily with breakfast AND 1 tablet daily with dinner. QUEtiapine (SEROQUEL) 50 mg tablet Take 1 tablet by mouth daily at bedtime. levothyroxine (SYNTHROID) 112 mcg tablet Take 1 tablet by mouth once daily. For 6 days of the week. melatonin 10 mg tab Take 1 tablet by mouth daily at bedtime. simvastatin (ZOCOR) 40 mg tablet Take 1 tablet by mouth daily at bedtime. Underpads 30 X 30 " pads 1 Each once daily. Current Facility-Administered Medications Medication Dose Route Frequency cyanocobalamin 1,000 mcg injection 1,000 mcg INTRAMUSCULAR q 1 MONTH ALLERGIES No Known Allergies ACTIVE PROBLEM LIST Moderate Dementia (Hcc) - 07/12/2023 Hypothyroidism Hypercholesteremia Dm (Diabetes Mellitus) ([facility]) Social History Tobacco Use Smoking status: Never Smokeless tobacco: Never Vaping Use Vaping status: Never Used Substance Use Topics Alcohol use: Never Drug use: Never Review of Systems OBJECTIVE BP 120/68 Pulse 80 Ht 5' 8.11" (1.73m) Wt 147 lb 4.3 oz (66.8kg) SpO2 98% BMI 22.32 kg/(m^2). Physical Exam Vitals and nursing note reviewed. Constitutional: General: She is awake. She is not in acute distress. Appearance: Normal appearance. She is well-developed and well-groomed. She is not ill-appearing, toxic-appearing or diaphoretic. HENT: Head: Normocephalic. Right Ear: External ear normal. Left Ear: External ear normal. Nose: Nose normal. Eyes: General: Vision grossly intact. Conjunctiva/sclera: Conjunctivae normal. Pupils: Pupils are equal, round, and reactive to light. Neck: Vascular: No JVD. Trachea: Trachea normal. Cardiovascular: Rate and Rhythm: Normal rate and regular rhythm. Pulses: Normal pulses. Heart sounds: Normal heart sounds. No murmur heard. Pulmonary: Effort: Pulmonary effort is normal. No accessory muscle usage, prolonged expiration or respiratory distress. Breath sounds: Normal breath sounds. Musculoskeletal: Cervical back: Neck supple. Skin: General: Skin is warm and dry. Capillary Refill: Capillary refill takes less than 2 seconds. Comments: Large L shaped skin tear with slight bruising, no erythema, edema, increased warmth or discharge noted. Neurological: General: No focal deficit present. Mental Status: She is alert. Mental status is at baseline. Psychiatric: Mood and Affect: Mood and affect normal. Speech: Speech normal. Behavior: Behavior normal. Behavior is cooperative. Thought Content: Thought content normal. Cognition and Memory: Cognition is impaired. Memory is impaired. ASSESSMENT/PLAN: 1. Medicare annual wellness visit, subsequent - ICD9: V70.0, ICD10: Z00.00 (primary diagnosis) - Counseled on healthy diet and regular exercise - Fall avoidance information provided - Personalized prevention plan provided 2. Moderate dementia with other behavioral disturbance, unspecified dementia type (HCC) - ICD9: 294.21, ICD10: F03.B18 Patient has moderate dementia with behavioral disturbances. Recent evaluation by Dr. Jenkins, a geriatric specialist, included in-depth memory assessments. Patient is currently managing with medication and increased water intake to prevent dehydration. - Continue current medication regimen. - Ensure adequate hydration. - Facilitate paperwork for respite care at [facility] to allow patient to be with her . - Monitor for any changes or worsening of symptoms. 3. Vitamin B 12 deficiency - ICD9: 266.2, ICD10: E53.8 - VITAMIN B12 4. Type 2 diabetes mellitus without complication, without long-term current use of insulin (HCC) - ICD9: 250.00, ICD10: E11.9 - Control undetermined, due for labs - Continue current medications - Counseled on healthy diet and regular exercise - HEMOGLOBIN A1C 5. Acquired hypothyroidism - ICD9: 244.9, ICD10: E03.9 - Instructed patient on importance of taking on an empty stomach either first thing in the morning or at bedtime. Update labs 6. Vitamin D deficiency - ICD9: 268.9, ICD10: E55.9 - VITAMIN D 25 HYDROXY 7. Hypercholesteremia - ICD9: 272.0, ICD10: E78.00 - LIPID PANEL, NONFASTING 8. Encounter for therapeutic drug monitoring - ICD9: V58.83, ICD10: Z51.81 - COMPLETE BLOOD COUNT AND DIFFERENTIAL - COMPREHENSIVE METABOLIC PANEL 9. Skin tear of lower leg without complication, right, subsequent encounter - ICD9: V58.89, 891.0, ICD10: S81.811D Change dressing daily, clean with water and pat dry, apply ointment and cover with dressing, change daily and as needed for soiling. Monitor for any issues and contact our office with concerns. Portions of this note have been entered by ancillary staff. I have reviewed and when necessary edited, so that they are an adequate record of my encounter with this patient Please note that parts of this document were created using voice recognition software and therefore may contain grammatical errors. Patient verbalizes understanding of instructions from today's visit and in agreement with treatment plan. Questions answered. Agrees to call the office if questions, concerns of issues with acute symptoms not improving or if they worsen. See diagnoses and orders for additional plan(s). Allergies and medications were reviewed, list was updated, and refills given if needed. Past medical, surgical, social, and family history reviewed and updated as appropriate. Encouraged proper diet & exercise as well as compliance with taking medications. Age-appropriate health preventative measures were discussed. Return if symptoms worsen or fail to improve, for Keep next scheduled appointment.. Christina Edmonds APRN-RANDI documented in this encounter [facility] 08-01-2024 Instructions Christina Edmonds APRN.CNP - 08/01/2024 2:05 PM EDT Screening schedule The following prevention plan is recommended: Shingrix Vaccine(2 of 3) due on 06/06/2007 Dilated Retinal Exam due on 06/03/2019 Covid-19 Vaccine() due on 01/21/2024 HbA1C due on 02/12/2024 Advance Directive Discussion due on 05/10/2024 Urine Albumin:Creatinine Ratio due on 07/11/2024 LDL Cholesterol due on 07/11/2024 Diabetic Foot Exam due on 07/19/2024 WHAT YOU CAN DO TO PREVENT FALLS Many falls can be prevented. By making some changes, you can lower your chances of falling. Four things YOU can do to prevent falls for you* and your caregiver 1. Begin a regular exercise program Exercise is one of the most important ways to lower your chances of falling. It makes you stronger and helps you feel better. Exercises that improve balance and coordination (like Ethan Chi) are the most helpful. Lack of exercise leads to weakness and increases your chances of falling. Ask your doctor or health care provider about the best type of exercise program for you. 2. Have your health care provider review your medicines Have your doctor or pharmacist review all the medicines you take, even [id number]-[id number] medicines. As you get older, the way medicines work in your body can change. Some medicines, or combinations of medicines, can make you sleepy or dizzy and can cause you to fall. 3. Have your vision checked Have your eyes checked by an eye doctor at least once a year. You may be wearing the wrong glasses or have a condition like glaucoma or cataracts that limits your vision. Poor vision can increase your chances of falling. 4. Make your home safer About half of all falls happen at home. To make your home safer: Remove things you can trip over (like papers, books, clothes, and shoes) from stairs and places where you walk. Remove small throw rugs or use double-sided tape to keep the rugs from slipping. Keep items you use often in cabinets you can reach easily without using a step stool. Have grab bars put in next to your toilet and in the tub or shower. Use non-slip mats in the bathtub and on shower floors. Improve the lighting in your home. As you get older, you need brighter lights to see well. Hang light-weight curtains or shades to reduce glare. Have handrails and lights put in on all staircases. Wear shoes both inside and outside the house. Avoid going barefoot or wearing slippers. For more information, contact: Centers for Disease Control and Prevention www.cdc.gov/injury * This information may not apply if you have certain medical conditions. documented in this encounter [facility] 07-31-2024 Miscellaneous Notes Ruby with [facility] calls to request most recent OV note and med list for respite stay at [facility]. Faxed to [phone] per request. Ruby aware that it is from 03/2024 but wanted it any ways to get the process started aware that patient has appt on 08/07/2024. Ruby also reports that patient will need an order that provider agrees with respite stay. Tamara Michelle, RN Patient niece Diann Negrete calling she has started the process of having her aunt admitted to [facility]. She said needed letter and copy of last office notes from 03/2024 signed. Advised [facility] usually needs a more recent office visit note and admission orders completed. She said has appt scheduled for end july with Christina. documented in this encounter [facility] 07-31-2024 Telephone encounter Note Ruby with [facility] calls to request most recent OV note and med list for respite stay at [facility]. Faxed to [phone] per request. Ruby aware that it is from 03/2024 but wanted it any ways to get the process started aware that patient has appt on 08/07/2024. Ruby also reports that patient will need an order that provider agrees with respite stay. Tamara Michelle RN [facility] 07-28-2024 Telephone encounter Note Patient stalinece Diann Negrete calling she has started the process of having her aunt admitted to [facility]. She said needed letter and copy of last office notes from 03/2024 signed. Advised [facility] usually needs a more recent office visit note and admission orders completed. She said has appt scheduled for end of July with Christina. [facility] 07-24-2024 Telephone encounter Note Called and spoke with pharmacist at [facility]. She asked if pt was taking her Levothyroxine 6 days a week or 7 days a week. Assuming 6 per sig instructions. Pharmacist states if pt is taking it 6, then pt has refills. If she is taking it 7, she does not. When questioned, pharmacist then says pt has refills and she will get one ready for her. Attempted to call pt several times with no answer. has same phone number so unable to leave [facility]. Will assume pt will check with pharmacy so closing encounter. [facility] 07-24-2024 Miscellaneous Notes Called and spoke with pharmacist at [facility]. She asked if pt was taking her Levothyroxine 6 days a week or 7 days a week. Assuming 6 per sig instructions. Pharmacist states if pt is taking it 6, then pt has refills. If she is taking it 7, she does not. When questioned, pharmacist then says pt has refills and she will get one ready for her. Attempted to call pt several times with no answer. has same phone number so unable to leave msg. Will assume pt will check with pharmacy so closing encounter. documented in this encounter [facility] 07-24-2024 Telephone encounter Note Called and spoke with pharmacist at [facility]. She asked if pt was taking her Levothyroxine 6 days a week or 7 days a week. Assuming 6 per sig instructions. Pharmacist states if pt is taking it 6, then pt has refills. If she is taking it 7, she does not. When questioned, pharmacist then says pt has refills and she will get one ready for her. Attempted to call pt several times with no answer. has same phone number so unable to leave msg. Will assume pt will check with pharmacy so closing encounter. [facility] 07-24-2024 Miscellaneous Notes Called and spoke with pharmacist at [facility]. She asked if pt was taking her Levothyroxine 6 days a week or 7 days a week. Assuming 6 per sig instructions. Pharmacist states if pt is taking it 6, then pt has refills. If she is taking it 7, she does not. When questioned, pharmacist then says pt has refills and she will get one ready for her. Attempted to call pt several times with no answer. has same phone number so unable to leave msg. Will assume pt will check with pharmacy so closing encounter. Pt called to make sure that refill request for Levothyroxine was received from [facility]'s PT is almost out of medication and needs refill. documented in this encounter [facility] 07-24-2024 Telephone encounter Note Pt called to make sure that refill request for Levothyroxine was received from [facility] PT is almost out of medication and needs refill. [facility] 07-19-2024 Note HNO ID: [id number] Author: GEMMA SAEED APRN.KILN WORKER Service: ? Author Type: Nurse Practitioner Type: Progress Notes Filed: 07/19/2024 18:15 Note Text: [facility] Subjective Alexander Xiao is a 83 year old female. HPI Alexander Xiao is a 83 year old female who presents today for CC of right leg injury. This started 1.5 hours ago. Has tried cleaning at home. Last tetanus 2023. .Patient presents with: scrape on lower right leg: X 1.5 hours PAST MEDICAL HISTORY Diagnosis Date DM (diabetes mellitus) (HCC) Endometrial cancer (HCC) History of endometrial cancer 2000 with [...] ALLERGIES Patient has no known allergies. MEDICATIONS cephALEXin (KEFLEX) 500 mg capsuleTake 1 capsule by mouth two times a day for 5 days.Disp: 10 capsuleRfl: 0 bacitracin 500 unit/gram ointmentApply to affected area two times a day for 5 days.Disp: 14 gRfl: 1 busPIRone (BUSPAR) 5 mg tabletTake 1 tablet by mouth two times a day.Disp: 60 tabletRfl: 2 cyanocobalamin 1,000 mcg/mLInject 1 mL intramuscularly one time a week.Disp: 51 mLRfl: 0 donepezil (ARICEPT) 10 mg tabletTake 1 tablet by mouth daily at bedtime.Disp: 90 tabletRfl: 3 metFORMIN (GLUCOPHAGE) 500 mg tabletTake 2 tablets by mouth daily with breakfast AND 1 tablet daily with dinner.Disp: Rfl: QUEtiapine (SEROQUEL) 50 mg tabletTake 1 tablet by mouth daily at bedtime.Disp: 30 tabletRfl: 5 levothyroxine (SYNTHROID) 112 mcg tabletTake 1 tablet by mouth once daily. For 6 days of the week.Disp: 90 tabletRfl: 3 melatonin 10 mg tabTake 1 tablet by mouth daily at bedtime.Disp: 90 tabletRfl: 1 simvastatin (ZOCOR) 40 mg tabletTake 1 tablet by mouth daily at bedtime.Disp: 90 tabletRfl: 3 Underpads 30 X 30 " pads1 Each once daily.Disp: 100 EachRfl: 3 FAMILY HISTORY Problem Relation Age of Onset other (colon polyps [Other]) Father Diabetes Father Breast Cancer Mother 62 other (Other [Other]) Sister some type of uterine issue (not sure if cancer) None Brother None Brother Social History Tobacco Use Smoking status: Never Smokeless tobacco: Never Vaping Use Vaping status: Never Used Substance Use Topics Alcohol use: Never Drug use: Never Patient presents with: scrape on lower right leg: X 1.5 hours HPI Review of Systems Objective BP 122/80 Pulse 69 Temp 36.9 ?C (98.5 ?F) (Tympanic) Resp 18 Wt 68.4 kg (150 lb 12.7 oz) SpO2 97% BMI 22.93 kg/m? Physical Exam Constitutional: General: She is not in acute distress. Appearance: She is not toxic-appearing or diaphoretic. HENT: Head: Normocephalic and atraumatic. Pulmonary: Effort: Pulmonary effort is normal. No accessory muscle usage or respiratory distress. Skin: Neurological: Mental Status: She is alert and oriented to person, place, and time. ASSESSMENT/PLAN: 1. Skin tear of lower leg without complication, initial encounter - ICD9: 891.0, ICD10: S81.819A Site cleansed and redressed Prophylactic atb ordered Clean with soap/water daily F/u for s/s infection - CEPHALEXIN 500 MG CAPSULE - BACITRACIN 500 UNIT/GRAM TOPICAL OINTMENT Gemma Saeed APRN.KILN WORKER MDM Procedures [facility] 07-19-2024 History of Present illness Narrative Images from the original note were not included. [facility] Subjective Alexander Xiao is a 83 year old female. HPI Alexander Xiao is a 83 year old female who presents today for CC of right leg injury. This started 1.5 hours ago. Has tried cleaning at home. Last tetanus 2023. .Patient presents with: scrape on lower right leg: X 1.5 hours PAST MEDICAL HISTORY Diagnosis Date DM (diabetes mellitus) (HCC) Endometrial cancer (HCC) History of endometrial cancer 2000 with [...] ALLERGIES Patient has no known allergies. MEDICATIONS cephALEXin (KEFLEX) 500 mg capsule^Take 1 capsule by mouth two times a day for 5 days.^Disp: 10 capsule^Rfl: 0 bacitracin 500 unit/gram ointment^Apply to affected area two times a day for 5 days.^Disp: 14 g^Rfl: 1 busPIRone (BUSPAR) 5 mg tablet^Take 1 tablet by mouth two times a day.^Disp: 60 tablet^Rfl: 2 cyanocobalamin 1,000 mcg/mL^Inject 1 mL intramuscularly one time a week.^Disp: 51 mL^Rfl: 0 donepezil (ARICEPT) 10 mg tablet^Take 1 tablet by mouth daily at bedtime.^Disp: 90 tablet^Rfl: 3 metFORMIN (GLUCOPHAGE) 500 mg tablet^Take 2 tablets by mouth daily with breakfast AND 1 tablet daily with dinner.^Disp: ^Rfl: QUEtiapine (SEROQUEL) 50 mg tablet^Take 1 tablet by mouth daily at bedtime.^Disp: 30 tablet^Rfl: 5 levothyroxine (SYNTHROID) 112 mcg tablet^Take 1 tablet by mouth once daily. For 6 days of the week.^Disp: 90 tablet^Rfl: 3 melatonin 10 mg tab^Take 1 tablet by mouth daily at bedtime.^Disp: 90 tablet^Rfl: 1 simvastatin (ZOCOR) 40 mg tablet^Take 1 tablet by mouth daily at bedtime.^Disp: 90 tablet^Rfl: 3 Underpads 30 X 30 " pads^1 Each once daily.^Disp: 100 Each^Rfl: 3 FAMILY HISTORY Problem Relation Age of Onset other (colon polyps [Other]) Father Diabetes Father Breast Cancer Mother 62 other (Other [Other]) Sister some type of uterine issue (not sure if cancer) None Brother None Brother Social History Tobacco Use Smoking status: Never Smokeless tobacco: Never Vaping Use Vaping status: Never Used Substance Use Topics Alcohol use: Never Drug use: Never Patient presents with: scrape on lower right leg: X 1.5 hours HPI Review of Systems Objective BP 122/80 Pulse 69 Temp 36.9 C (98.5 F) (Tympanic) Resp 18 Wt 68.4 kg (150 lb 12.7 oz) SpO2 97% BMI 22.93 kg/m Physical Exam Constitutional: General: She is not in acute distress. Appearance: She is not toxic-appearing or diaphoretic. HENT: Head: Normocephalic and atraumatic. Pulmonary: Effort: Pulmonary effort is normal. No accessory muscle usage or respiratory distress. Skin: Neurological: Mental Status: She is alert and oriented to person, place, and time. ASSESSMENT/PLAN: 1. Skin tear of lower leg without complication, initial encounter - ICD9: 891.0, ICD10: S81.819A Site cleansed and redressed Prophylactic atb ordered Clean with soap/water daily F/u for s/s infection - CEPHALEXIN 500 MG CAPSULE - BACITRACIN 500 UNIT/GRAM TOPICAL OINTMENT Gemma Saeed APRN.RANDI MDM Procedures documented in this encounter [facility] 05-17-2024 Note HNO ID: [id number] Author: KILEY TAVAREZ LPN Service: ? Author Type: LICENSED NURSE Type: Progress Notes Filed: 05/17/2024 14:17 Note Text: Patient presents for B-12 injection. Denies any problems at this time. Patient instructed on any SE of medication, verbalized understanding and agreed to proceed with treatment. Tolerated injection well. Kiley Tavarez LPN [facility] 05-17-2024 History of Present illness Narrative Patient presents for B-12 injection. Denies any problems at this time. Patient instructed on any SE of medication, verbalized understanding and agreed to proceed with treatment. Tolerated injection well. Kiley Tavarez LPN documented in this encounter [facility] 05-15-2024 Telephone encounter Note OK to refill as ordered Terrance Andersen MD [facility] 05-15-2024 Miscellaneous Notes OK to refill as ordered Terrance Andersen MD Patient has been identified by name and date of : Yes, Spouse phones for refill(s): Requested Prescriptions Pending Prescriptions Disp Refills busPIRone (BUSPAR) 5 mg tablet 60 tablet 2 Sig: Take 1 tablet by mouth two times a day. Date of last office visit in primary care: 03/14/2024 Date of next office visit in primary care: 09/11/2024 Please advise. Thank you. Dulce Dale. documented in this encounter [facility] 05-15-2024 Telephone encounter Note Patient has been identified by name and date of : Yes, Spouse phones for refill(s): Requested Prescriptions Pending Prescriptions Disp Refills busPIRone (BUSPAR) 5 mg tablet 60 tablet 2 Sig: Take 1 tablet by mouth two times a day. Date of last office visit in primary care: 03/14/2024 Date of next office visit in primary care: 09/11/2024 Please advise. Thank you. Dulce Dale. [facility] 05-08-2024 Note HNO ID: [id number] Author: KILEY TAVAREZ LPN Service: ? Author Type: LICENSED NURSE Type: Progress Notes Filed: 05/08/2024 13:14 Note Text: Patient presents for B-12 injection. Denies any problems at this time. Patient instructed on any SE of medication, verbalized understanding and agreed to proceed with treatment. Tolerated injection well. Kiley Tavarez LPN [facility] 05-08-2024 History of Present illness Narrative Patient presents for B-12 injection. Denies any problems at this time. Patient instructed on any SE of medication, verbalized understanding and agreed to proceed with treatment. Tolerated injection well. Kiley Tavarez LPN documented in this encounter [facility] 05-01-2024 Note HNO ID: [id number] Author: KILEY TAVAREZ LPN Service: ? Author Type: LICENSED NURSE Type: Progress Notes Filed: 05/01/2024 13:17 Note Text: Patient presents for B-12 injection. Denies any problems at this time. Patient instructed on any SE of medication, verbalized understanding and agreed to proceed with treatment. Tolerated injection well. Kiley Tavarez LPN [facility] 05-01-2024 History of Present illness Narrative Patient presents for B-12 injection. Denies any problems at this time. Patient instructed on any SE of medication, verbalized understanding and agreed to proceed with treatment. Tolerated injection well. Kiley Tavarez LPN documented in this encounter [facility] 04-27-2024 Telephone encounter Note Patient scheduled for nurse visit 05/01/24 to receive B-[address]. [address] order at this time. Kiley Tavarez LPN [facility] 04-27-2024 Miscellaneous Notes Patient scheduled for nurse visit 05/01/24 to receive B-[address]. [address] order at this time. Kiley Tavarez LPN documented in this encounter [facility] 04-27-2024 Telephone encounter Note returned call and given provider's message below with verbalized understanding. spoke with patient and states she is agreeable. Scheduled the 4 weekly B12 inj with nurse. Pt understands after the 4 weekly shots she will go to monthly shots. [facility] 04-27-2024 Miscellaneous Notes returned call and given provider's message below with verbalized understanding. spoke with patient and states she is agreeable. Scheduled the 4 weekly B12 inj with nurse. Pt understands after the 4 weekly shots she will go to monthly shots. Called and left a voicemail for the patient to call back and ask for a nurse to receive the providers message. Vit b12 is on the lower side. Could be causing some of the dementia but may not all Would like for her to take vit b12 injections. I will place that order, please 1000 mcg weekly for 4 weeks and then months Jerilyn, Jose Jenkins MD documented in this encounter [facility] 04-27-2024 Telephone encounter Note Called and left a voicemail for the patient to call back and ask for a nurse to receive the providers message. [facility] 04-27-2024 Telephone encounter Note Vit b12 is on the lower side. Could be causing some of the dementia but may not all Would like for her to take vit b12 injections. I will place that order, please 1000 mcg weekly for 4 weeks and then months Regards, Jose Jenkins MD [facility] 04-26-2024 Instructions Jose Jenkins MD - 04/26/2024 3:49 PM EST Drink at least 64 ounces of water Do not drive anywhere on your own Try to get 30 mins of exercise every day documented in this encounter [facility] 04-26-2024 Note HNO ID: [id number] Author: JOSE JENKINS MD Service: ? Author Type: Physician Type: Progress Notes Filed: 04/26/2024 16:21 Note Text: [facility] Initial Consult Alexander Xiao is a 83 year old year old female who comes for Comprehensive Geriatric Assessment. Pt accompanied by: - Robert- Caregivers involved in care: he is the main caregiver, they do not have children. They are marries 50 years. HPI: This is a 83-year-old with diabetes mellitus hypothyroidism and moderate dementia. Was diagnosed this year at [facility] with moderate dementia. She is dependent on more than half of her IADLs except that she is driving by herself and there is concern from family with regards to that. The other concern is that she has been having sundowning. She basically walks around a lot. He is on Seroquel and has not had any unsafe behaviors. She constantly says she is thirsty, and does not drink enough water She walks around in the afternoon a lot. She has to constantly be reminded to take her pills, Alzheimer's Questionnaire (Rafaela 2010) THE CAREGIVER REPORTS THAT THE PATIENT: - Has memory loss - Has worse memory than a few years ago - Repeats questions, statements, or stories in the same day - Misplaces items more than once a month, or so that s/he cannot find them - Suspects others are moving/hiding/stealing items when s/he cannot find them - Frequently has trouble knowing the date, uses cues like newspaper or calendar more than once a day - Becomes disoriented in unfamiliar places - Becomes more confused outside the home or when traveling - Has difficulty handling money (e.g., calculating tips or change) - Has trouble handling bills or finances - Has difficulty driving, or drives in way that concerns the caregiver, or has stopped driving - Has trouble using appliances - Has difficulty completing household tasks or repairs - Has significantly reduced recreational activities THE CAREGIVER DENIES THAT THE PATIENT: - Forgets appointments or needs caregiver to track events/appointments - Has trouble remembering to take medications - Is getting lost in familiar surroundings - Has a decreased sense of direction - Has trouble finding words other than names - Confuses names of family members or friends - Has difficulty recognizing familiar people Alzheimer's Questionnaire score = 17 (21/21 questions answered) Long-term Memory: Difficulty remembering distant events from the past like childhood, previous employment, wedding: partially. Behavioral/personality: Withdrawn/Depressed: NO Crying spells: NO Anxious: NO History of aggression: NO History of irritability: YES Apathy:NO Recent changes in weight or appetite: NO Alcohol or Drug use: NO Smoking? YES Sleep: Do you snore loudly (louder than talking or loud enough to be heard through closed doors)? YES Do you often feel tired, fatigued, or sleepy during daytime? YES Has anyone observed you stop breathing during your sleep? NO Are you restless when you sleep at night? YES Do you have problems falling a sleep? Yes Do you have problems staying a sleep? yes Psychosis: Hallucinations or delusions: NO Suicidal or homicidal ideations: NO Obsessions, compulsions, or hoarding: NO Safety: Does pt know his/her address? NO What would you do if there was a fire? Get out How would you call for help? Yes Does he/she know 911? NO Are there any firearms in the home? YES If yes are they in a secure location? No really in a secure place Social History: Primary language: Citizen Of [place] Marital Status: Living situation: Home w/ Spouse Socially engaged? (participates in activities such as clubs, uatsdin, community center, sports, games, visiting friends/relatives, etc?): YES Go out to eat daily and do grocery shopping. Caregiver [place] and Stress Are your feeling overwhelmed? NO Do you have concerns about your own health? NO Are you neglecting your own needs? NO Do you have financial concerns? NO Do your fear loss of employment? NO Do you have concerns about verbal/physical abuse? NO Do you feel that you are still capable of taking care of your relative? yes Are you willing to continue being in the caregiver role? NO B-ADLs: (I=independent,A=assistance,D=dep endent) ?Bathing: I, Dressing: I, Toileting: I, Transferring:I, Continence: I, Feeding: I, I-ADLs: Ability to use phone: A Shopping: D, Cooking: Other: never liked to cook anyway. Housekeeping: I, Laundry: D, Transportation:I, does not drive too far Medications: {D, Handle Finances: D. PMHx: PAST MEDICAL HISTORY Diagnosis Date DM (diabetes mellitus) (HCC) Endometrial cancer (HCC) History of endometrial cancer 2000 with radiation treatment Hypercholesteremia Hypothyroidism Serum calcium elevated 11/16/2016 Normal on 05/2017 labs PSHx: PAST OJHN (more content not included)... [facility] 04-26-2024 History of Present illness Narrative [facility] Initial Consult Alexander Xiao is a 83 year old year old female who comes for Comprehensive Geriatric Assessment. Pt accompanied by: - Robert- Caregivers involved in care: he is the main caregiver, they do not have children. They are marries 50 years. HPI: This is a 83-year-old with diabetes mellitus hypothyroidism and moderate dementia. Was diagnosed this year at [facility] with moderate dementia. She is dependent on more than half of her IADLs except that she is driving by herself and there is concern from family with regards to that. The other concern is that she has been having sundowning. She basically walks around a lot. He is on Seroquel and has not had any unsafe behaviors. She constantly says she is thirsty, and does not drink enough water She walks around in the afternoon a lot. She has to constantly be reminded to take her pills, Alzheimer's Questionnaire (Rafaela 2010) THE CAREGIVER REPORTS THAT THE PATIENT: - Has memory loss - Has worse memory than a few years ago - Repeats questions, statements, or stories in the same day - Misplaces items more than once a month, or so that s/he cannot find them - Suspects others are moving/hiding/stealing items when s/he cannot find them - Frequently has trouble knowing the date, uses cues like newspaper or calendar more than once a day - Becomes disoriented in unfamiliar places - Becomes more confused outside the home or when traveling - Has difficulty handling money (e.g., calculating tips or change) - Has trouble handling bills or finances - Has difficulty driving, or drives in way that concerns the caregiver, or has stopped driving - Has trouble using appliances - Has difficulty completing household tasks or repairs - Has significantly reduced recreational activities THE CAREGIVER DENIES THAT THE PATIENT: - Forgets appointments or needs caregiver to track events/appointments - Has trouble remembering to take medications - Is getting lost in familiar surroundings - Has a decreased sense of direction - Has trouble finding words other than names - Confuses names of family members or friends - Has difficulty recognizing familiar people Alzheimer's Questionnaire score = 17 (21/21 questions answered) Long-term Memory: Difficulty remembering distant events from the past like childhood, previous employment, wedding: partially. Behavioral/personality: Withdrawn/Depressed: NO Crying spells: NO Anxious: NO History of aggression: NO History of irritability: YES Apathy:NO Recent changes in weight or appetite: NO Alcohol or Drug use: NO Smoking? YES Sleep: Do you snore loudly (louder than talking or loud enough to be heard through closed doors)? YES Do you often feel tired, fatigued, or sleepy during daytime? YES Has anyone observed you stop breathing during your sleep? NO Are you restless when you sleep at night? YES Do you have problems falling a sleep? Yes Do you have problems staying a sleep? yes Psychosis: Hallucinations or delusions: NO Suicidal or homicidal ideations: NO Obsessions, compulsions, or hoarding: NO Safety: Does pt know his/her address? NO What would you do if there was a fire? Get out How would you call for help? Yes Does he/she know 911? NO Are there any firearms in the home? YES If yes are they in a secure location? No really in a secure place Social History: Primary language: Citizen Of [place] Marital Status: Living situation: Home w/ Spouse Socially engaged? (participates in activities such as clubs, uatsdin, community center, sports, games, visiting friends/relatives, etc?): YES Go out to eat daily and do grocery shopping. Caregiver [place] and Stress Are your feeling overwhelmed? NO Do you have concerns about your own health? NO Are you neglecting your own needs? NO Do you have financial concerns? NO Do your fear loss of employment? NO Do you have concerns about verbal/physical abuse? NO Do you feel that you are still capable of taking care of your relative? yes Are you willing to continue being in the caregiver role? NO B-ADLs: (I=independent,A=assistance,D=dep endent) ?Bathing: I, Dressing: I, Toileting: I, Transferring:I, Continence: I, Feeding: I, I-ADLs: Ability to use phone: A Shopping: D, Cooking: Other: never liked to cook anyway. Housekeeping: I, Laundry: D, Transportation:I, does not drive too far Medications: {D, Handle Finances: D. PMHx: PAST MEDICAL HISTORY Diagnosis Date DM (diabetes mellitus) (HCC) Endometrial cancer (HCC) History of endometrial cancer 2000 with radiation treatment Hypercholesteremia Hypothyroidism Serum calcium elevated 11/16/2016 Normal on 05/2017 labs PSHx: PAST SURGICAL HISTORY Procedure Laterality Date DELIVERY ONLY 1961 , low transverse COLONOSCOPY FLX DX W/COLLJ SPEC WHEN PFRMD 09/29/12 Colonoscopy DILATION & CURETTAGE DX&/THER NONOBSTETRIC 1989 Dilation & curettage LAPAROSCOPY SURG CHOLECYSTECTOMY 1996 Cholecystectomy, lap PAST SURGICAL HISTORY OF 2001 stitch in urethra and catheter bag for 2 months TONSILLECTOMY HX TOTAL ABDOMINAL HYSTERECT W/WO RMVL TUBE OVARY 2000 Hysterectomy, FERNANDO-BSO Home Meds: Prior to Admission medications : Medication donepezil (ARICEPT) 10 mg tablet, Sig Take 1 tablet by mouth daily at bedtime., Start Date 03/14/24, End Date , Taking? Yes, Authorizing Provider Christina Edmonds APRN.KILN WORKER Medication metFORMIN (GLUCOPHAGE) 500 mg tablet, Sig Take 2 tablets by mouth daily with breakfast AND 1 tablet daily with dinner., Start Date 03/14/24, End Date , Taking? Yes, Authorizing Provider Christina Edmonds APRN.KILN WORKER Medication QUEtiapine (SEROQUEL) 50 mg tablet, Sig Take 1 tablet by mouth daily at bedtime., Start Date 03/10/24, End Date , Taking? Yes, Authorizing Provider Christina Edmonds APRN.KILN WORKER Medication levothyroxine (SYNTHROID) 112 mcg tablet, Sig Take 1 tablet by mouth once daily. For 6 days of the week., Start Date 02/11/24, End Date , Taking? Yes, Authorizing Provider Christina Edmonds APRN.KILN WORKER Medication melatonin 10 mg tab, Sig Take 1 tablet by mouth daily at bedtime., Start Date 02/11/24, End Date , Taking? Yes, Authorizing Provider Christina Edmonds APRN.KILN WORKER Medication busPIRone (BUSPAR) 5 mg tablet, Sig Take 1 tablet by mouth two times a day., Start Date 02/08/24, End Date , Taking? Yes, Authorizing Provider Christina Edmonds APRN.KILN WORKER Medication simvastatin (ZOCOR) 40 mg tablet, Sig Take 1 tablet by mouth daily at bedtime., Start Date 10/21/23, End Date , Taking? Yes, Authorizing Provider Jose Corbett MD Medication Underpads 30 X 30 " pads, Sig 1 Each once daily., Start Date 07/12/23, End Date , Taking? Yes, Authorizing Provider Christina Edmonds APRN.KILN WORKER Other OTC med/supplements: no Medication Review: - ANY HIGH RISK MEDICATIONS (STOPP CRITERIA): NO ALLERGIES No Known Allergies Review of Systems Difficulty chew/swallow: no Pain: no Tremor: no Incontinence - During the last 3 months did you leak urine? 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 If + falls: Physical Exam: General: Well-nourished, kempt Ambulatory: without assistance Mobility Aid: Cane Head: Normocephalic Eyes: conjunctiva/corneas normal, EOMI Ears: R TM - clear with good landmarks, nl light reflex, L TM - clear with good landmarks, nl light reflex Nose: clear Oropharynx: teeth in good , mouth is dry Neck: supple, no adenopathy, and mouth is dry Cardio: regular rate and rhythm Pulmonary: Lungs clear to auscultation bilaterally Extremities: Extremities normal. No deformities, edema, or skin discoloration. Musculoskeletal: Normal Gait Neuro:Deep Tendon reflexes :2/4 , Both Gait: Unsteadiness: YES Shuffling: NO Tremors: NO Slowness:yes Landon Cognitive Exam (MOCA): 12/06 Mini-Mental State Exam (MMSE): 21 CDR Dementia Scale 1) Subjective Memory Loss: YES 2) Measurable Memory Loss: YES 3) IADLs: YES 4) BADLs: NO Driving Safely: No < 50% 6) Medications: No Level: CDR 1 Fast 6 Depression Screening/Evaluation: (F03.B18) Moderate dementia with other behavioral disturbance, unspecified dementia type (HCC) Comment: Plan: CONSULT TO GERIATRICS Assessment and Plan: I. Medical /Mental Status/Decision Making Capacity 1-Mentation # Subjective memory loss with measurable memory loss with MMSE 21/30, MOCA score of 12/06 ... Patient does have functional impairment. Cannot take her medications so needs supervision, do the finances and needs help with laundry housekeeping. This appears to be amnestic in nature likely Alzheimer's and some vascular process too. She has decreased hearing but does not want to get hearing aids although we discussed is linked with dementia. At this point she has moderate dementia and she is very sure because of experiences from other friends that hearing it is not what she would like to have.. Level: CDR 1 Fast 6 Patient and family would like to focus on goals of care and help with guiding them to navigate the present situation -To continue the Aricept as she is tolerating it, there is some weight loss but not significant we will monitor it. -I do not have records for any imaging but I do not think at this time imaging would help her situation as she has already moderate dementia and she does not have any children. - There is some depression because of the loss of her child when he was 11 years old. But at this point although she is sad I do not think it is significantly contributing we will make a difference as her PHQ-9 was a score of 1. I think the PHQ-9 is a little unreliable at this point because she is unable to fully cognitively give answers. -She is dehydrated and we discussed the need for her to drink at least 64 ounces of water a day. - noted that he does not want any help with caring for her at this point because she is able to do all her ADLs, she has not wandered off so she does not need any supervision and he is present all the time with her. He also does not need help with food because he has been cooking food and he has not had any issues with that -If things get too difficult notes that he will need to put her in an assisted her nursing facility. -We discussed the safety of the road and asked her if she is alone, she understands and she says she goes to [employer] every day for lunch and she will probably walk if she needs to or will take her along with her. She was little upset but not very resistant and seem to be agreeable. # chronic medical conditions: Her A1c was 8.1 and I would keep a target of up to 8.5 for her. Asked her not to be too concerned about what she eats as long as she eats well and takes her medications. Her blood pressure is well-controlled. 2-Mobility -- She was able to walk and was able to do semitandem gait. No history of falls or balance issues. Was advised to exercise. 3-Medications -Medications are appropriate and she does not have any that are contributing to cognitive issues. 4- Matters Most - She has advanced directives in place. REFERRALS AND RECOMMENDATIONS 1. Discussed the cognitive benefits of memory exercises and reviewed examples 2. Discussed the cognitive benefits of physical exercise and socialization Jose Jenkins MD [facility] documented in this encounter [facility] 04-25-2024 Note HNO ID: [id number] Author: DAGMAR ORTIZ, ? Service: ? Author Type: Physician Type: Progress Notes Filed: 04/25/2024 13:45 Note Text: Subjective: Patient presents to clinic c/o painful toenails. They state that the nails are especially painful with shoe gear and pressure. Patient states that nails 1-5 b/l are painful. Patient is borderline diabetic. No other pedal complaints at this time. Patient states no change in medications or medical history since last visit. Objective: Patient presents to clinic ambulating in [facility] Vasc: DP and PT pulses are palpable bilateral. CFT is less than 5 seconds bilateral. Skin temperature is warm to cool proximal to distal bilateral. There is minimal edema or varicosities noted. Neuro: Protective sensation is intact to the foot and toes when tested with the 5.07 SWM bilateral. Vibratory sensation is decreased at the hallux IPJ bilateral. The hallux is downgoing bilateral. Derm: Nails 1-5 b/l are painful, discolored-yellow, thick, crumbly, dystrophic and with subungal debris. Skin is dry, cool and hair growth is absent bilateral. There are no hyperkeratosis, ulcerations, scars, verruca or other lesions noted. Ortho: Muscle strength is 5/5 for all pedal groups tested. Ankle joint DF is decreased with the knee extended with no pain or crepitus noted. 1st MPJ ROM is decreased bilateral. Assessment: (B35.1) Onychomycosis (primary encounter diagnosis) (M79.675) Pain in toe of left foot (M79.674) Pain in toe of right foot Plan: Patient was seen and evaluated. Nails 1-5 bilateral were debrided in length and thickness. Patient is to RTC in 3-4 months. Dagmar Ortiz DPM [facility] 04-25-2024 History of Present illness Narrative Subjective: Patient presents to clinic c/o painful toenails. They state that the nails are especially painful with shoe gear and pressure. Patient states that nails 1-5 b/l are painful. Patient is borderline diabetic. No other pedal complaints at this time. Patient states no change in medications or medical history since last visit. Objective: Patient presents to clinic ambulating in [facility] Vasc: DP and PT pulses are palpable bilateral. CFT is less than 5 seconds bilateral. Skin temperature is warm to cool proximal to distal bilateral. There is minimal edema or varicosities noted. Neuro: Protective sensation is intact to the foot and toes when tested with the 5.07 SWM bilateral. Vibratory sensation is decreased at the hallux IPJ bilateral. The hallux is downgoing bilateral. Derm: Nails 1-5 b/l are painful, discolored-yellow, thick, crumbly, dystrophic and with subungal debris. Skin is dry, cool and hair growth is absent bilateral. There are no hyperkeratosis, ulcerations, scars, verruca or other lesions noted. Ortho: Muscle strength is 5/5 for all pedal groups tested. Ankle joint DF is decreased with the knee extended with no pain or crepitus noted. 1st MPJ ROM is decreased bilateral. Assessment: (B35.1) Onychomycosis (primary encounter diagnosis) (M79.675) Pain in toe of left foot (M79.674) Pain in toe of right foot Plan: Patient was seen and evaluated. Nails 1-5 bilateral were debrided in length and thickness. Patient is to RTC in 3-4 months. Dagmar Ortiz DPM [facility] ROOMING INTAKE FLOWSHEET DATA Patient presents with: Left Foot - Established Patient, Follow Up, Diabetic Foot Care Right Foot - Established Patient, Follow Up, Diabetic Foot Care Loraine Santiago LPN documented in this encounter [facility] 04-25-2024 Note HNO ID: [id number] Author: LORAINE SANTIAGO LPN Service: ? Author Type: LICENSED NURSE Type: Progress Notes Filed: 04/25/2024 13:45 Note Text: AMB ROOMING INTAKE FLOWSHEET DATA Patient presents with: Left Foot - Established Patient, Follow Up, Diabetic Foot Care Right Foot - Established Patient, Follow Up, Diabetic Foot Care Loraine Santiago LPN [facility] 03-14-2024 Note HNO ID: [id number] Author: CHRISTINA EDMONDS APRN.KILN WORKER Service: ? Author Type: Nurse Practitioner Type: Progress Notes Filed: 03/14/2024 14:08 Note Text: SUBJECTIVE Alexander Xiao is a 83 year old female here today for a check up on her medical problems. Chief Complaint Patient presents with: 4 month follow up HPI Alexander Xiao is a 83 year old female. She is an established patient, presents today accompanied by her for routine follow up. History of DM, dementia and hypothyroid. reports that sleep is okay, might get up to use the bathroom and get a drink but then comes back to bed and falls back to sleep easy. Appetite is okay. No complaints of pain. Taking medicine mostly, sometimes giving a hard time. Some episodes of forgetfulness. She does feel she can still drive and becomes defensive when discussing this topic. Some issues with bowel movements. Loose bowel movements. Some incontinence. Her medications were reviewed today and her list is now up to date. Medications Current Outpatient Medications Medication Sig QUEtiapine (SEROQUEL) 50 mg tablet Take 1 tablet by mouth daily at bedtime. levothyroxine (SYNTHROID) 112 mcg tablet Take 1 tablet by mouth once daily. For 6 days of the week. melatonin 10 mg tab Take 1 tablet by mouth daily at bedtime. busPIRone (BUSPAR) 5 mg tablet Take 1 tablet by mouth two times a day. simvastatin (ZOCOR) 40 mg tablet Take 1 tablet by mouth daily at bedtime. donepezil (ARICEPT) 10 mg tablet Take 1 tablet by mouth daily at bedtime. metFORMIN (GLUCOPHAGE) 500 mg tablet Take 2 tablets by mouth daily with breakfast AND 1 tablet daily with dinner. Underpads 30 X 30 " pads 1 Each once daily. No current facility-administered medications for this visit. ALLERGIES No Known Allergies ACTIVE PROBLEM LIST Moderate Dementia (Hcc) - 07/12/2023 Hypothyroidism Hypercholesteremia Dm (Diabetes Mellitus) ([facility]) Social History Tobacco Use Smoking status: Never Smokeless tobacco: Never Vaping Use Vaping status: Never Used Substance Use Topics Alcohol use: Never Drug use: Never Review of Systems Respiratory: Negative. Cardiovascular: Negative. OBJECTIVE BP 132/72 Pulse 76[Apical of 80[ Wt 153 lb (69.4kg) Physical Exam Vitals and nursing note reviewed. Constitutional: General: She is awake. She is not in acute distress. Appearance: Normal appearance. She is well-developed and well-groomed. She is not ill-appearing, toxic-appearing or diaphoretic. HENT: Head: Normocephalic. Right Ear: External ear normal. Left Ear: External ear normal. Nose: Nose normal. Eyes: General: Vision grossly intact. Conjunctiva/sclera: Conjunctivae normal. Pupils: Pupils are equal, round, and reactive to light. Neck: Vascular: No JVD. Trachea: Trachea normal. Pulmonary: Effort: Pulmonary effort is normal. No accessory muscle usage, prolonged expiration or respiratory distress. Musculoskeletal: Cervical back: Neck supple. Skin: General: Skin is warm and dry. Capillary Refill: Capillary refill takes less than 2 seconds. Neurological: General: No focal deficit present. Mental Status: She is alert and oriented to person, place, and time. Mental status is at baseline. Psychiatric: Attention and Perception: Attention and perception normal. Mood and Affect: Mood and affect normal. Speech: Speech normal. Behavior: Behavior normal. Behavior is cooperative. Cognition and Memory: Cognition is impaired. Memory is impaired. Judgment: Judgment is impulsive. ASSESSMENT/PLAN: 1. Moderate dementia with other behavioral disturbance, unspecified dementia type (HCC) - ICD9: 294.21, ICD10: F03.B18 (primary diagnosis) Increase donepezil, she does seem a little more agitated today then her usual. Refer to geriatrics for continuing care while this provider out on leave. Discussed concerns of patient feeling she can drive and recommended she let her drive her places. - CONSULT TO GERIATRICS 2. Driving safety issue - ICD9: V15.89, ICD10: Z91.89 See above. 3. Type 2 diabetes mellitus without complication, without long-term current use of insulin (HCC) - ICD9: 250.00, ICD10: E11.9 - Improving control - Decrease metformin due to bowel issues likely a side effect - Counseled on healthy diet and regular exercise - Discussed need for and benefit of weight loss. BMI 23.26 kg/(m2) - METFORMIN 500 MG TABLET Portions of this note have been entered by ancillary staff. I have reviewed and when necessary edited, so that they are an adequate record of my encounter with this patient Please note that parts of this document were created using voice recognition software and therefore may contain grammatical errors. Patient verbalizes understanding of instructions from today's visit and in agreement with treatment plan. Questions answered. Agrees to call the office if questions, concerns of issues with a (more content not included)... [facility] 03-14-2024 History of Present illness Narrative SUBJECTIVE Alexander Xiao is a 83 year old female here today for a check up on her medical problems. Chief Complaint Patient presents with: 4 month follow up HPI Alexander Xiao is a 83 year old female. She is an established patient, presents today accompanied by her for routine follow up. History of DM, dementia and hypothyroid. reports that sleep is okay, might get up to use the bathroom and get a drink but then comes back to bed and falls back to sleep easy. Appetite is okay. No complaints of pain. Taking medicine mostly, sometimes giving a hard time. Some episodes of forgetfulness. She does feel she can still drive and becomes defensive when discussing this topic. Some issues with bowel movements. Loose bowel movements. Some incontinence. Her medications were reviewed today and her list is now up to date. Medications Current Outpatient Medications Medication Sig QUEtiapine (SEROQUEL) 50 mg tablet Take 1 tablet by mouth daily at bedtime. levothyroxine (SYNTHROID) 112 mcg tablet Take 1 tablet by mouth once daily. For 6 days of the week. melatonin 10 mg tab Take 1 tablet by mouth daily at bedtime. busPIRone (BUSPAR) 5 mg tablet Take 1 tablet by mouth two times a day. simvastatin (ZOCOR) 40 mg tablet Take 1 tablet by mouth daily at bedtime. donepezil (ARICEPT) 10 mg tablet Take 1 tablet by mouth daily at bedtime. metFORMIN (GLUCOPHAGE) 500 mg tablet Take 2 tablets by mouth daily with breakfast AND 1 tablet daily with dinner. Underpads 30 X 30 " pads 1 Each once daily. No current facility-administered medications for this visit. ALLERGIES No Known Allergies ACTIVE PROBLEM LIST Moderate Dementia (Hcc) - 07/12/2023 Hypothyroidism Hypercholesteremia Dm (Diabetes Mellitus) (Hcc) Social History Tobacco Use Smoking status: Never Smokeless tobacco: Never Vaping Use Vaping status: Never Used Substance Use Topics Alcohol use: Never Drug use: Never Review of Systems Respiratory: Negative. Cardiovascular: Negative. OBJECTIVE BP 132/72 Pulse 76[Apical of 80[ Wt 153 lb (69.4kg) Physical Exam Vitals and nursing note reviewed. Constitutional: General: She is awake. She is not in acute distress. Appearance: Normal appearance. She is well-developed and well-groomed. She is not ill-appearing, toxic-appearing or diaphoretic. HENT: Head: Normocephalic. Right Ear: External ear normal. Left Ear: External ear normal. Nose: Nose normal. Eyes: General: Vision grossly intact. Conjunctiva/sclera: Conjunctivae normal. Pupils: Pupils are equal, round, and reactive to light. Neck: Vascular: No JVD. Trachea: Trachea normal. Pulmonary: Effort: Pulmonary effort is normal. No accessory muscle usage, prolonged expiration or respiratory distress. Musculoskeletal: Cervical back: Neck supple. Skin: General: Skin is warm and dry. Capillary Refill: Capillary refill takes less than 2 seconds. Neurological: General: No focal deficit present. Mental Status: She is alert and oriented to person, place, and time. Mental status is at baseline. Psychiatric: Attention and Perception: Attention and perception normal. Mood and Affect: Mood and affect normal. Speech: Speech normal. Behavior: Behavior normal. Behavior is cooperative. Cognition and Memory: Cognition is impaired. Memory is impaired. Judgment: Judgment is impulsive. ASSESSMENT/PLAN: 1. Moderate dementia with other behavioral disturbance, unspecified dementia type (HCC) - ICD9: 294.21, ICD10: F03.B18 (primary diagnosis) Increase donepezil, she does seem a little more agitated today then her usual. Refer to geriatrics for continuing care while this provider out on leave. Discussed concerns of patient feeling she can drive and recommended she let her drive her places. - CONSULT TO GERIATRICS 2. Driving safety issue - ICD9: V15.89, ICD10: Z91.89 See above. 3. Type 2 diabetes mellitus without complication, without long-term current use of insulin (HCC) - ICD9: 250.00, ICD10: E11.9 - Improving control - Decrease metformin due to bowel issues likely a side effect - Counseled on healthy diet and regular exercise - Discussed need for and benefit of weight loss. BMI 23.26 kg/(m^2) - METFORMIN 500 MG TABLET Portions of this note have been entered by ancillary staff. I have reviewed and when necessary edited, so that they are an adequate record of my encounter with this patient Please note that parts of this document were created using voice recognition software and therefore may contain grammatical errors. Patient verbalizes understanding of instructions from today's visit and in agreement with treatment plan. Questions answered. Agrees to call the office if questions, concerns of issues with acute symptoms not improving or if they worsen. See diagnoses and orders for additional plan(s). Allergies and medications were reviewed, list was updated, and refills given if needed. Past medical, surgical, social, and family history reviewed and updated as appropriate. Encouraged proper diet & exercise as well as compliance with taking medications. Age-appropriate health preventative measures were discussed. Return in about 6 months (around 09/11/2024) for Follow up on chronic conditions and medications.. HIEN Whyte documented in this encounter [facility] 03-10-2024 Telephone encounter Note Prescription Refill Information The patient has been identified by name and date of : Yes Caregiver verified no other encounters exist for this prescription request: Yes Caregiver confirmed with patient/requestor that no other refills are due, in the near future, with this provider at this time: Yes The last office visit in the department: 11/12/2023 Does the patient have a future office visit with this provider/department: Yes Requested Prescriptions Pending Prescriptions Disp Refills QUEtiapine (SEROQUEL) 50 mg tablet 30 tablet 3 Sig: Take 1 tablet by mouth daily at bedtime. Loreto Stephens March 10, 2024 9:35 AM [facility] 03-10-2024 Miscellaneous Notes Prescription Refill Information The patient has been identified by name and date of : Yes Caregiver verified no other encounters exist for this prescription request: Yes Caregiver confirmed with patient/requestor that no other refills are due, in the near future, with this provider at this time: Yes The last office visit in the department: 11/12/2023 Does the patient have a future office visit with this provider/department: Yes Requested Prescriptions Pending Prescriptions Disp Refills QUEtiapine (SEROQUEL) 50 mg tablet 30 tablet 3 Sig: Take 1 tablet by mouth daily at bedtime. [place] [facility] [place] 10[place] 2024 9:35 AM documented in this encounter [facility] 02-10-2024 Telephone encounter Note Appears patients melatonin was changed from 3 mg to 10 mg so she does not have as many pills but patient continued to take medication three times per day with increased dosage and now is out of medication. Please advise Overall doing okay, some sleep disturbance, will change melatonin dose so she does not have as many pills. - MELATONIN 10 MG TABLET [facility] 02-10-2024 Miscellaneous Notes Appears patients melatonin was changed from 3 mg to 10 mg so she does not have as many pills but patient continued to take medication three times per day with increased dosage and now is out of medication. Please advise Overall doing okay, some sleep disturbance, will change melatonin dose so she does not have as many pills. - MELATONIN 10 MG TABLET Patient's is calling Christina Edmonds APRN.CNP today with concern regarding Medication Problem. states that medication melatonin 10 mg tab has not been called into pharmacy. Patient takes the medication 3x/daily and is asking for a 90 day supply. Patient has been identified by name and birthdate. Duration of symptoms: N/A Please return call to , Jude [phone] Was an appointment scheduled: No Closing statement: Results or non-symptom based questions: Thank you for calling [facility], your call will be returned within the next business day. Suri Ladd documented in this encounter [facility] 02-10-2024 Telephone encounter Note Patient's is calling Christina Edmonds APRN.CNP today with concern regarding Medication Problem. states that medication melatonin 10 mg tab has not been called into pharmacy. Patient takes the medication 3x/daily and is asking for a 90 day supply. Patient has been identified by name and birthdate. Duration of symptoms: N/A Please return call to , Jude [phone] Was an appointment scheduled: No Closing statement: Results or non-symptom based questions: Thank you for calling [facility], your call will be returned within the next business day. Suri Ladd [facility] 02-10-2024 Telephone encounter Note Prescription Refill Information The patient has been identified by name and date of : Yes Caregiver verified no other encounters exist for this prescription request: Yes Caregiver confirmed with patient/requestor that no other refills are due, in the near future, with this provider at this time: Yes The last office visit in the department: Does the patient have a future office visit with this provider/department: Yes Requested Prescriptions Pending Prescriptions Disp Refills donepezil (ARICEPT) 5 mg tablet 90 tablet 3 Sig: Take 1 tablet by mouth daily at bedtime. levothyroxine (SYNTHROID) 112 mcg tablet 90 tablet 3 Sig: Take 1 tablet by mouth once daily. For 6 days of the week. PLEASE NOTE: On 11/16/23, Levothyroxine was MED UPDATE. Negar Gutiérrez February 10, 2024 8:54 AM [facility] 02-10-2024 Miscellaneous Notes Prescription Refill Information The patient has been identified by name and date of : Yes Caregiver verified no other encounters exist for this prescription request: Yes Caregiver confirmed with patient/requestor that no other refills are due, in the near future, with this provider at this time: Yes The last office visit in the department: Does the patient have a future office visit with this provider/department: Yes Requested Prescriptions Pending Prescriptions Disp Refills donepezil (ARICEPT) 5 mg tablet 90 tablet 3 Sig: Take 1 tablet by mouth daily at bedtime. levothyroxine (SYNTHROID) 112 mcg tablet 90 tablet 3 Sig: Take 1 tablet by mouth once daily. For 6 days of the week. PLEASE NOTE: On 11/16/23, Levothyroxine was MED UPDATE. Negar Gutiérrez February 10, 2024 8:54 AM documented in this encounter [facility] 02-07-2024 Telephone encounter Note Patient has been identified by name and date of : Yes Patient's phones for refill(s): Requested Prescriptions Pending Prescriptions Disp Refills busPIRone (BUSPAR) 5 mg tablet 60 tablet 2 Sig: Take 1 tablet by mouth two times a day. Date of last office visit in primary care: 11/12/2023 Date of next office visit in primary care: 03/14/2024 Please advise. Thank you. Dulce Dale. [facility] 02-07-2024 Miscellaneous Notes Patient has been identified by name and date of : Yes Patient's phones for refill(s): Requested Prescriptions Pending Prescriptions Disp Refills busPIRone (BUSPAR) 5 mg tablet 60 tablet 2 Sig: Take 1 tablet by mouth two times a day. Date of last office visit in primary care: 11/12/2023 Date of next office visit in primary care: 03/14/2024 Please advise. Thank you. Dulce Dale. documented in this encounter [facility] 01-25-2024 Note HNO ID: [id number] Author: DAGMAR ORTIZ, ? Service: ? Author Type: Physician Type: Progress Notes Filed: 01/25/2024 11:21 Note Text: Last saw pcp: 11/12/23 Subjective: Patient presents to clinic c/o painful toenails. They state that the nails are especially painful with shoe gear and pressure. Patient admits to being diabetic. No other pedal complaints at this time. Patient states no change in medications or medical history since last visit. Objective: Patient presents to clinic ambulating in k montserratian tennis shoes Vasc: DP and PT pulses are nonpalpabe left and faintly palpable right. CFT is less than 5 seconds bilateral. Skin temperature is warm to cool proximal to distal bilateral. There is mild edema or varicosities noted. Neuro: Protective sensation is absent to the foot and toes when tested with the 5.07 SWM bilateral. Vibratory sensation is absent at the hallux IPJ bilateral. The hallux is downgoing bilateral. Derm: Nails 1-5 b/l are discolored-yellow, thick, crumbly, dystrophic and with subungal debris. Skin is of normal turgor, texture and hair growth is absent bilateral. There are no hyperkeratosis, ulcerations, scars, verruca or other lesions noted. Ortho: Muscle strength is 5/5 for all pedal groups tested. Ankle joint DF is decreased with the knee extended with no pain or crepitus noted. 1st MPJ ROM is decreased bilateral. Assessment: (B35.1) Onychomycosis (primary encounter diagnosis) (M79.675) Pain in toe of left foot (M79.674) Pain in toe of right foot (E11.9) Type 2 diabetes mellitus without complication, without long-term current use of insulin ([facility]) Plan: Patient was seen and evaluated. Nails 1-5 bilateral were debrided in length and thickness. Q8 modifier Patient was instructed on the continued importance of diabetic foot care along with proper diet and keeping their blood sugar under control to prevent complications. Stressed the importance of avoiding barefoot walking, wearing good shoes and daily foot inspection. Patient is to RTC in 3-4 months. Dagmar Ortiz DPM [facility] 01-25-2024 History of Present illness Narrative Last saw pcp: 11/12/23 Subjective: Patient presents to clinic c/o painful toenails. They state that the nails are especially painful with shoe gear and pressure. Patient admits to being diabetic. No other pedal complaints at this time. Patient states no change in medications or medical history since last visit. Objective: Patient presents to clinic ambulating in k [place] tennis shoes Vasc: DP and PT pulses are nonpalpabe left and faintly palpable right. CFT is less than 5 seconds bilateral. Skin temperature is warm to cool proximal to distal bilateral. There is mild edema or varicosities noted. Neuro: Protective sensation is absent to the foot and toes when tested with the 5.07 SWM bilateral. Vibratory sensation is absent at the hallux IPJ bilateral. The hallux is downgoing bilateral. Derm: Nails 1-5 b/l are discolored-yellow, thick, crumbly, dystrophic and with subungal debris. Skin is of normal turgor, texture and hair growth is absent bilateral. There are no hyperkeratosis, ulcerations, scars, verruca or other lesions noted. Ortho: Muscle strength is 5/5 for all pedal groups tested. Ankle joint DF is decreased with the knee extended with no pain or crepitus noted. 1st MPJ ROM is decreased bilateral. Assessment: (B35.1) Onychomycosis (primary encounter diagnosis) (M79.675) Pain in toe of left foot (M79.674) Pain in toe of right foot (E11.9) Type 2 diabetes mellitus without complication, without long-term current use of insulin (HCC) Plan: Patient was seen and evaluated. Nails 1-5 bilateral were debrided in length and thickness. Q8 modifier Patient was instructed on the continued importance of diabetic foot care along with proper diet and keeping their blood sugar under control to prevent complications. Stressed the importance of avoiding barefoot walking, wearing good shoes and daily foot inspection. Patient is to RTC in 3-4 months. aDgmar Ortiz DPM Patient presents with: Left Foot - Established Patient, Follow Up, Diabetic Foot Care Right Foot - Established Patient, Follow Up, Diabetic Foot Care Patient presents for follow up diabetic foot care. SERENE 10/21/23 documented in this encounter [facility] 01-25-2024 Instructions Dagmar Ortiz - 01/25/2024 11:08 AM EDT Diabetes Foot Care Instructions When you have diabetes, proper foot care is very important. Poor foot care may lead to amputation of a foot or leg. As a person with diabetes, you are more vulnerable to foot problems, because diabetes can damage your nerves and reduce blood flow to your feet. Here are some diabetes foot care tips to follow: Wash and Dry Your Feet Daily Use mild soaps Use warm water Pat your skin dry; do not rub. Thoroughly dry your feet. After washing, use lotion on your feet to prevent cracking. Do not put lotion between your toes. Examine Your Feet Each Day Check the tops and bottoms of your feet. Have someone else look at your feet if you cannot see them. Check for dry, cracked skin. Look for blisters, cuts, scratches, or other sores. Check for redness, increased warmth, or tenderness when touching any area of your feet. Check for ingrown toenails, corns, and calluses. If you get a blister or sore from your shoes, do not "pop" it. Apply a bandage and wear a different pair of shoes. Take Care of Your Toenails Cut toenails after bathing, when they are soft. Cut toenails straight across and smooth with a nail file. Avoid cutting into the corners of toes. Do not cut cuticles. If you have neuropathy (or decreased sensation in your feet) a water commissioner should always cut your toenails. Be Careful When Exercising Walk and exercise in comfortable shoes. Do not exercise when you have open sores on your feet. Protect Your Feet With Shoes and Socks Never go barefoot. Always protect your feet by wearing shoes or hard-soled slippers or footwear. Avoid shoes with high heels and pointed toes. Avoid shoes that expose your toes or heels (such as open-toed shoes or sandals). These types of shoes increase your risk for injury and potential infections. Try on new footwear with the type of socks you usually wear. Do not wear new shoes for more than an hour at a time. Change your socks daily. Look and feel inside your shoes before putting them on to make sure there are no foreign objects or rough areas. Avoid tight socks. Wear natural-fiber socks (cotton, wool, or a cotton-wool blend). Wear special shoes if your health care provider recommends them. Wear shoes/boots that will protect your feet from various weather conditions (cold, moisture, etc.). Make sure your shoes fit properly. If you have neuropathy (nerve damage), you may not notice that your shoes are too tight. Perform the "footwear test" described below. Footwear Test Use this simple test to see if your shoes fit correctly: Stand on a piece of paper. (Make sure you are standing and not sitting, because your foot changes shape when you stand.) Trace the outline of your foot. Trace the outline of your shoe. Compare the tracings: Is the shoe too narrow? Is your foot crammed into the shoe? The shoe should be at least 1/2 inch longer than your longest toe and as wide as your foot. Proper Shoe Choices The following types of shoes are best for people with diabetes Closed toes and heels Leather uppers without a seam inside At least 1/2 inch extra space at the end of your longest toe Inside of shoe should be soft with no rough areas Outer sole should be made of stiff material Shoes should be at least as wide as your feet Tips for Foot Care in Diabetes Don't wait to treat a minor foot problem if you have diabetes. Follow your health care provider's guidelines and first aid guidelines. Report foot injuries and infections to your health care provider immediately. Check water temperature with your elbow, not your foot. Do not use a heating pad on your feet. Do not cross your legs. Do not self-treat your corns, calluses, or other foot problems. Go to your health care provider or water commissioner to treat these conditions. documented in this encounter [facility] 01-25-2024 Note HNO ID: [id number] Author: RACH GATICA RN Service: ? Author Type: Registered Nurse Type: Progress Notes Filed: 01/25/2024 11:21 Note Text: Patient presents with: Left Foot - Established Patient, Follow Up, Diabetic Foot Care Right Foot - Established Patient, Follow Up, Diabetic Foot Care Patient presents for follow up diabetic foot care. [facility] 10/21/23 [facility] 12-09-2023 Telephone encounter Note Prescription Refill Information The patient has been identified by name and date of : Yes Caregiver verified no other encounters exist for this prescription request: Yes Caregiver confirmed with patient/requestor that no other refills are due, in the near future, with this provider at this time: Yes The last office visit in the department: 11/12/23 Does the patient have a future office visit with this provider/department: Yes Requested Prescriptions Pending Prescriptions Disp Refills metFORMIN (GLUCOPHAGE) 500 mg tablet 450 tablet 3 Sig: Take 2 tablets by mouth two times a day with meals. Teresa Gutiérrez December 09, 2023 9:30 AM [facility] 12-09-2023 Miscellaneous Notes Prescription Refill Information The patient has been identified by name and date of : Yes Caregiver verified no other encounters exist for this prescription request: Yes Caregiver confirmed with patient/requestor that no other refills are due, in the near future, with this provider at this time: Yes The last office visit in the department: 11/12/23 Does the patient have a future office visit with this provider/department: Yes Requested Prescriptions Pending Prescriptions Disp Refills metFORMIN (GLUCOPHAGE) 500 mg tablet 450 tablet 3 Sig: Take 2 tablets by mouth two times a day with meals. Teresa Gutiérrez December 09, 2023 9:30 AM documented in this encounter [facility] 11-16-2023 Telephone encounter Note PATIENT's NOTIFIED OF SAME. [facility] 11-16-2023 Miscellaneous Notes PATIENT's NOTIFIED OF SAME. Please call and let know Alexander's blood work shows blood sugars are improving. Thyroid is now overactive, they can reduce her synthroid to 6 days a week instead of daily. Christina Edmonds APRN.CNP documented in this encounter [facility] 11-16-2023 Telephone encounter Note Please call and let know Alexander's blood work shows blood sugars are improving. Thyroid is now overactive, they can reduce her synthroid to 6 days a week instead of daily. Christina Edmonds APRN.CNP [facility] 11-12-2023 History of Present illness Narrative SUBJECTIVE Alexander Xiao is a 83 year old female here today for a check up on her medical problems. Chief Complaint Patient presents with: F/U 3 Month HPI Alexander Xiao is a 83 year old female. She is an established patient. She presents today for a routine 3 month follow up. Accompanied by her . History of dementia, DM, hypothyroid. Per she is sleeping okay, gets up to go to the bathroom most nights. Sometimes a little "testy", not always excited to take medications but she is manageable. Picky eater. Appetite is good but not eating very healthy. Her medications were reviewed today and her list is now up to date. Medications Current Outpatient Medications Medication Sig QUEtiapine (SEROQUEL) 50 mg tablet Take 1 tablet by mouth daily at bedtime. donepezil (ARICEPT) 5 mg tablet Take 1 tablet by mouth daily at bedtime. busPIRone (BUSPAR) 5 mg tablet Take 1 tablet by mouth two times a day. simvastatin (ZOCOR) 40 mg tablet Take 1 tablet by mouth daily at bedtime. levothyroxine (SYNTHROID) 112 mcg tablet Take 1 tablet by mouth once daily. melatonin 10 mg tab Take 1 tablet by mouth daily at bedtime. metFORMIN (GLUCOPHAGE) 500 mg tablet Take 2 tablets by mouth two times a day with meals. Underpads 30 X 30 " pads 1 Each once daily. No current facility-administered medications for this visit. ALLERGIES No Known Allergies ACTIVE PROBLEM LIST Moderate Dementia (Hcc) - 07/12/2023 Hypothyroidism Hypercholesteremia Dm (Diabetes Mellitus) ([facility]) Social History Tobacco Use Smoking status: Never Smokeless tobacco: Never Vaping Use Vaping Use: Never used Substance Use Topics Alcohol use: Never Drug use: Never Review of Systems Constitutional: Negative. Respiratory: Negative. Cardiovascular: Negative. OBJECTIVE BP 102/60 Pulse 86 Wt 149 lb (67.6kg) SpO2 97% Physical Exam Vitals and nursing note reviewed. Constitutional: General: She is awake. She is not in acute distress. Appearance: Normal appearance. She is well-developed and well-groomed. She is not ill-appearing, toxic-appearing or diaphoretic. HENT: Head: Normocephalic. Right Ear: External ear normal. Left Ear: External ear normal. Nose: Nose normal. Eyes: General: Vision grossly intact. Conjunctiva/sclera: Conjunctivae normal. Pupils: Pupils are equal, round, and reactive to light. Neck: Vascular: No JVD. Trachea: Trachea normal. Cardiovascular: Rate and Rhythm: Normal rate and regular rhythm. Pulses: Normal pulses. Heart sounds: Normal heart sounds. No murmur heard. Pulmonary: Effort: Pulmonary effort is normal. No accessory muscle usage, prolonged expiration or respiratory distress. Breath sounds: Normal breath sounds. Musculoskeletal: Cervical back: Neck supple. Skin: General: Skin is warm and dry. Capillary Refill: Capillary refill takes less than 2 seconds. Neurological: General: No focal deficit present. Mental Status: She is alert. Mental status is at baseline. Psychiatric: Attention and Perception: Attention and perception normal. Mood and Affect: Mood and affect normal. Speech: Speech normal. Behavior: Behavior normal. Behavior is cooperative. Thought Content: Thought content normal. Cognition and Memory: Memory is impaired. She exhibits impaired recent memory and impaired remote memory. Judgment: Judgment normal. ASSESSMENT/PLAN: 1. Moderate dementia with other behavioral disturbance, unspecified dementia type ([facility]) - ICD9: 294.21, ICD10: F03.B18 (primary diagnosis) Overall doing okay, some sleep disturbance, will change melatonin dose so she does not have as many pills. - MELATONIN 10 MG TABLET 2. Type 2 diabetes mellitus without complication, without long-term current use of insulin ([facility]) - ICD9: 250.00, ICD10: E11.9 - Control undetermined, due for labs - Continue current medications - Counseled on healthy diet and regular exercise - METFORMIN 500 MG TABLET - HEMOGLOBIN A1C 3. Acquired hypothyroidism - ICD9: 244.9, ICD10: E03.9 - Instructed patient on importance of taking on an empty stomach either first thing in the morning or at bedtime. Labs today, adjust dose accordingly. - THYROID STIMULATING HORMONE - T3, FREE - T4 FREE/FREE THYROXINE 4. Encounter for therapeutic drug monitoring - ICD9: V58.83, ICD10: Z51.81 - COMPLETE BLOOD COUNT AND DIFFERENTIAL - COMPREHENSIVE METABOLIC PANEL Portions of this note have been entered by ancillary staff. I have reviewed and when necessary edited, so that they are an adequate record of my encounter with this patient Please note that parts of this document were created using voice recognition software and therefore may contain grammatical errors. Patient verbalizes understanding of instructions from today's visit and in agreement with treatment plan. Questions answered. Agrees to call the office if questions, concerns of issues with acute symptoms not improving or if they worsen. See diagnoses and orders for additional plan(s). Allergies and medications were reviewed, list was updated, and refills given if needed. Past medical, surgical, social, and family history reviewed and updated as appropriate. Encouraged proper diet & exercise as well as compliance with taking medications. Age-appropriate health preventative measures were discussed. Return in about 4 months (around 03/14/2024) for Follow up on chronic conditions and medications.. Christina Edmonds APRN-RANDI documented in this encounter [facility] 11-08-2023 Telephone encounter Note Prescription Refill Information The patient has been identified by name and date of : Yes Caregiver verified no other encounters exist for this prescription request: Yes Caregiver confirmed with patient/requestor that no other refills are due, in the near future, with this provider at this time: Yes The last office visit in the department: 08/13/23 Does the patient have a future office visit with this provider/department: Yes Requested Prescriptions Pending Prescriptions Disp Refills melatonin 3 mg tablet 90 tablet 2 Sig: Take 3 tablets by mouth daily at bedtime. Aleah Gutiérrez November 08, 2023 8:58 AM [facility] 11-08-2023 Miscellaneous Notes Prescription Refill Information The patient has been identified by name and date of : Yes Caregiver verified no other encounters exist for this prescription request: Yes Caregiver confirmed with patient/requestor that no other refills are due, in the near future, with this provider at this time: Yes The last office visit in the department: 08/13/23 Does the patient have a future office visit with this provider/department: Yes Requested Prescriptions Pending Prescriptions Disp Refills melatonin 3 mg tablet 90 tablet 2 Sig: Take 3 tablets by mouth daily at bedtime. Aleah Gutiérrez November 08, 2023 8:58 AM documented in this encounter [facility] 11-04-2023 Telephone encounter Note Prescription Refill Information The patient has been identified by name and date of : Yes Caregiver verified no other encounters exist for this prescription request: Yes Caregiver confirmed with patient/requestor that no other refills are due, in the near future, with this provider at this time: Yes The last office visit in the department: 08-13-23 Does the patient have a future office visit with this provider/department: Yes Requested Prescriptions Pending Prescriptions Disp Refills QUEtiapine (SEROQUEL) 50 mg tablet 30 tablet 3 Sig: Take 1 tablet by mouth daily at bedtime. donepezil (ARICEPT) 5 mg tablet 30 tablet 2 Sig: Take 1 tablet by mouth daily at bedtime. busPIRone (BUSPAR) 5 mg tablet 60 tablet 2 Sig: Take 1 tablet by mouth two times a day. Esther Cox [facility] November 04, 2023 9:27 AM [facility] 11-04-2023 Miscellaneous Notes Prescription Refill Information The patient has been identified by name and date of : Yes Caregiver verified no other encounters exist for this prescription request: Yes Caregiver confirmed with patient/requestor that no other refills are due, in the near future, with this provider at this time: Yes The last office visit in the department: 08-13-23 Does the patient have a future office visit with this provider/department: Yes Requested Prescriptions Pending Prescriptions Disp Refills QUEtiapine (SEROQUEL) 50 mg tablet 30 tablet 3 Sig: Take 1 tablet by mouth daily at bedtime. donepezil (ARICEPT) 5 mg tablet 30 tablet 2 Sig: Take 1 tablet by mouth daily at bedtime. busPIRone (BUSPAR) 5 mg tablet 60 tablet 2 Sig: Take 1 tablet by mouth two times a day. Esther Gutiérrez November 04, 2023 9:27 AM documented in this encounter [facility] 10-21-2023 Telephone encounter Note The following approved medication requests have been transmitted electronically. Requested Prescriptions Signed Prescriptions Disp Refills simvastatin (ZOCOR) 40 mg tablet 90 tablet 3 Sig: Take 1 tablet by mouth daily at bedtime. Authorizing Provider: JOSE CORBETT levothyroxine (SYNTHROID) 112 mcg tablet 90 tablet 3 Sig: Take 1 tablet by mouth once daily. Authorizing Provider: JOSE CORBETT MD [facility] 10-21-2023 Miscellaneous Notes The following approved medication requests have been transmitted electronically. Requested Prescriptions Signed Prescriptions Disp Refills simvastatin (ZOCOR) 40 mg tablet 90 tablet 3 Sig: Take 1 tablet by mouth daily at bedtime. Authorizing Provider: JOSE CORBETT levothyroxine (SYNTHROID) 112 mcg tablet 90 tablet 3 Sig: Take 1 tablet by mouth once daily. Authorizing Provider: JOSE CORBETT MD Prescription Refill Information The patient has been identified by name and date of : Yes Caregiver verified no other encounters exist for this prescription request: Yes Caregiver confirmed with patient/requestor that no other refills are due, in the near future, with this provider at this time: Yes The last office visit in the department: 08-13-23 Does the patient have a future office visit with this provider/department: Yes Requested Prescriptions Pending Prescriptions Disp Refills simvastatin (ZOCOR) 40 mg tablet 90 tablet 3 Sig: Take 1 tablet by mouth daily at bedtime. levothyroxine (SYNTHROID) 112 mcg tablet 90 tablet 3 Sig: Take 1 tablet by mouth once daily. is calling and is requesting a change in pharmacy to the [facility]' in [place] for the levothyroxine and a refill for the simvastatin. Caitlin Gutiérrez October 21, 2023 9:47 AM documented in this encounter [facility] 10-21-2023 History of Present illness Narrative Last saw pcp: 08/13/23 Subjective: Patient presents to clinic c/o painful toenails. They state that the nails are especially painful with shoe gear and pressure. Patient states that nails 1-5 b/l are painful. Patient admits to being diabetic. No other pedal complaints at this time. Patient states no change in medications or medical history since last visit. Objective: Patient presents to clinic ambulating in [facility] Vasc: DP and PT pulses are faintly palpable bilateral. CFT is less than 5 seconds bilateral. Skin temperature is warm to cool proximal to distal bilateral. There is mild edema or varicosities noted. Neuro: Protective sensation is decreased to the foot and toes when tested with the 5.07 SWM bilateral. Vibratory sensation is absent at the hallux IPJ bilateral. The hallux is downgoing bilateral. Derm: Nails 1-5 b/l are painful, discolored-yellow, thick, crumbly, dystrophic and with subungal debris. Skin is of normal turgor, texture and hair growth is absent bilateral. There are no hyperkeratosis, ulcerations, scars, verruca or other lesions noted. Ortho: Muscle strength is 5/5 for all pedal groups tested. Ankle joint DF is decreased with the knee extended with no pain or crepitus noted. 1st MPJ ROM is decreased bilateral. Assessment: (B35.1) Onychomycosis (primary encounter diagnosis) (M79.675) Pain in toe of left foot (M79.674) Pain in toe of right foot (E11.9) Type 2 diabetes mellitus without complication, without long-term current use of insulin ([facility]) Plan: Patient was seen and evaluated. Nails 1-5 bilateral were debrided in length and thickness. We discussed the possible etiologies of discolored, dystrophic, and thickened nails including fungus, yeast, mold as well as in some instances, prior trauma, or mechanical causes such as repetitive microtrauma in shoe gear. We discussed topical medication for discolored toenails which has very low success but no major side effects. We discussed oral medication. Patient will need hepatic testing prior to use. Patient informed of risks associated with Lamisil. We discussed removal of toenails. Patient would like to proceed with monitoring. Patient was instructed on the continued importance of diabetic foot care along with proper diet and keeping their blood sugar under control to prevent complications. Discussed the importance of daily foot inspection, monitoring feet and wearing good supportive shoes. Patient is to RTC in 3-4 months. Dagmar Ortiz DPM Patient presents with: Left Foot - Established Patient, Follow Up, Diabetic Foot Care Right Foot - Established Patient, Follow Up, Diabetic Foot Care Patient presents for follow up diabetic foot/nail care. [facility] 07/20/23. documented in this encounter [facility] 10-21-2023 Instructions Dagmar Ortiz - 10/21/2023 10:49 AM EDT Diabetes Foot Care Instructions When you have diabetes, proper foot care is very important. Poor foot care may lead to amputation of a foot or leg. As a person with diabetes, you are more vulnerable to foot problems, because diabetes can damage your nerves and reduce blood flow to your feet. Here are some diabetes foot care tips to follow: Wash and Dry Your Feet Daily Use mild soaps Use warm water Pat your skin dry; do not rub. Thoroughly dry your feet. After washing, use lotion on your feet to prevent cracking. Do not put lotion between your toes. Examine Your Feet Each Day Check the tops and bottoms of your feet. Have someone else look at your feet if you cannot see them. Check for dry, cracked skin. Look for blisters, cuts, scratches, or other sores. Check for redness, increased warmth, or tenderness when touching any area of your feet. Check for ingrown toenails, corns, and calluses. If you get a blister or sore from your shoes, do not "pop" it. Apply a bandage and wear a different pair of shoes. Take Care of Your Toenails Cut toenails after bathing, when they are soft. Cut toenails straight across and smooth with a nail file. Avoid cutting into the corners of toes. Do not cut cuticles. If you have neuropathy (or decreased sensation in your feet) a water commissioner should always cut your toenails. Be Careful When Exercising Walk and exercise in comfortable shoes. Do not exercise when you have open sores on your feet. Protect Your Feet With Shoes and Socks Never go barefoot. Always protect your feet by wearing shoes or hard-soled slippers or footwear. Avoid shoes with high heels and pointed toes. Avoid shoes that expose your toes or heels (such as open-toed shoes or sandals). These types of shoes increase your risk for injury and potential infections. Try on new footwear with the type of socks you usually wear. Do not wear new shoes for more than an hour at a time. Change your socks daily. Look and feel inside your shoes before putting them on to make sure there are no foreign objects or rough areas. Avoid tight socks. Wear natural-fiber socks (cotton, wool, or a cotton-wool blend). Wear special shoes if your health care provider recommends them. Wear shoes/boots that will protect your feet from various weather conditions (cold, moisture, etc.). Make sure your shoes fit properly. If you have neuropathy (nerve damage), you may not notice that your shoes are too tight. Perform the "footwear test" described below. Footwear Test Use this simple test to see if your shoes fit correctly: Stand on a piece of paper. (Make sure you are standing and not sitting, because your foot changes shape when you stand.) Trace the outline of your foot. Trace the outline of your shoe. Compare the tracings: Is the shoe too narrow? Is your foot crammed into the shoe? The shoe should be at least 1/2 inch longer than your longest toe and as wide as your foot. Proper Shoe Choices The following types of shoes are best for people with diabetes Closed toes and heels Leather uppers without a seam inside At least 1/2 inch extra space at the end of your longest toe Inside of shoe should be soft with no rough areas Outer sole should be made of stiff material Shoes should be at least as wide as your feet Tips for Foot Care in Diabetes Don't wait to treat a minor foot problem if you have diabetes. Follow your health care provider's guidelines and first aid guidelines. Report foot injuries and infections to your health care provider immediately. Check water temperature with your elbow, not your foot. Do not use a heating pad on your feet. Do not cross your legs. Do not self-treat your corns, calluses, or other foot problems. Go to your health care provider or water commissioner to treat these conditions. documented in this encounter [facility] 10-21-2023 Telephone encounter Note Prescription Refill Information The patient has been identified by name and date of : Yes Caregiver verified no other encounters exist for this prescription request: Yes Caregiver confirmed with patient/requestor that no other refills are due, in the near future, with this provider at this time: Yes The last office visit in the department: 08-13-23 Does the patient have a future office visit with this provider/department: Yes Requested Prescriptions Pending Prescriptions Disp Refills simvastatin (ZOCOR) 40 mg tablet 90 tablet 3 Sig: Take 1 tablet by mouth daily at bedtime. levothyroxine (SYNTHROID) 112 mcg tablet 90 tablet 3 Sig: Take 1 tablet by mouth once daily. is calling and is requesting a change in pharmacy to the [facility] in [place] for the levothyroxine and a refill for the simvastatin. Caitlin Gutiérrez October 21, 2023 9:47 AM [facility] 09-24-2023 Telephone encounter Note Noted and agree. [facility] 09-24-2023 Miscellaneous Notes Noted and agree. This nurse asked to call Jude bartlett/reese patient took too many pills Phoned Jude, who reports patient took a lot of pills by accident about 2 hours ago, and she is unable to walk now, and patient tells him she is dizzy. Reports patient is in a dementia state. Reports he not sure of all the medications patient took, but knows patient took: 4 metformin (500 mg each) = 2000 mg (asked if Jude checked her BS- Jude states they don't check BS readings) 3 melatonin (3 mg each) = 9 mg 1 buspar = 5 mg 1 zocor = 40 mg 1 seroquel = 50 mg And others he is not sure of. Advised Jude to call 911. Jude agreeable. documented in this encounter [facility] 09-24-2023 Telephone encounter Note This nurse asked to call Jude bartlett/c patient took too many pills Phoned Jude, who reports patient took a lot of pills by accident about 2 hours ago, and she is unable to walk now, and patient tells him she is dizzy. Reports patient is in a dementia state. Reports he not sure of all the medications patient took, but knows patient took: 4 metformin (500 mg each) = 2000 mg (asked if Jude checked her BS- Jude states they don't check BS readings) 3 melatonin (3 mg each) = 9 mg 1 buspar = 5 mg 1 zocor = 40 mg 1 seroquel = 50 mg And others he is not sure of. Advised Jude to call 911. Jude agreeable. [facility] 08-13-2023 History of Present illness Narrative SUBJECTIVE Alexander Xiao is a 82 year old female here today for a check up on her medical problems. Chief Complaint Patient presents with: Follow Up: 4 weeks HPI Alexander Xiao is a 82 year old female. She presents today for a routine follow up. Accompanied by her . Recently seen acutely for a paronychia of her left hand, pinky finger, overall resolved. is primary caregiver, states overall things are going well. Sometimes some increase confusion but no issues with severe agitation, combativeness or severe sundowning. Sleeping well. Recent labs showed elevated hgba1c, she likes candy and sweet treats. Her medications were reviewed today and her list is now up to date. Medications Current Outpatient Medications Medication Sig busPIRone (BUSPAR) 5 mg tablet Take 1 tablet by mouth two times a day. donepezil (ARICEPT) 5 mg tablet Take 1 tablet by mouth daily at bedtime. melatonin 3 mg tablet Take 3 tablets by mouth daily at bedtime. levothyroxine (SYNTHROID) 112 mcg tablet Take 1 tablet by mouth once daily. QUEtiapine (SEROQUEL) 50 mg tablet Take 1 tablet by mouth daily at bedtime. Underpads 30 X 30 " pads 1 Each once daily. simvastatin (ZOCOR) 40 mg tablet Take 1 tablet by mouth daily at bedtime. triamcinolone acetonide (KENALOG) 0.1 % cream Apply 1 application to affected area three times daily. Apply sparingly to area for rash/itching. multivitamin tablet Take 1 tablet by mouth once daily. metFORMIN (GLUCOPHAGE) 500 mg tablet Take 1 tablet by mouth two times a day with meals. No current facility-administered medications for this visit. ALLERGIES No Known Allergies ACTIVE PROBLEM LIST Moderate Dementia (Hcc) - 07/12/2023 Hypothyroidism Hypercholesteremia Dm (Diabetes Mellitus) ([facility]) Social History Tobacco Use Smoking status: Never Smokeless tobacco: Never Review of Systems Respiratory: Negative. Cardiovascular: Negative. OBJECTIVE BP 126/68 Pulse 84 Temp (Src) 97 (Left Tympanic) Resp 16 Wt 152 lb (68.9kg) Physical Exam Vitals and nursing note reviewed. Constitutional: General: She is awake. She is not in acute distress. Appearance: Normal appearance. She is well-developed and well-groomed. She is not ill-appearing, toxic-appearing or diaphoretic. HENT: Head: Normocephalic. Right Ear: External ear normal. Left Ear: External ear normal. Nose: Nose normal. Eyes: General: Vision grossly intact. Conjunctiva/sclera: Conjunctivae normal. Pupils: Pupils are equal, round, and reactive to light. Neck: Vascular: No JVD. Trachea: Trachea normal. Cardiovascular: Rate and Rhythm: Normal rate and regular rhythm. Pulses: Normal pulses. Heart sounds: Normal heart sounds. No murmur heard. Pulmonary: Effort: Pulmonary effort is normal. No accessory muscle usage, prolonged expiration or respiratory distress. Breath sounds: Normal breath sounds. Musculoskeletal: Cervical back: Neck supple. Skin: General: Skin is warm and dry. Capillary Refill: Capillary refill takes less than 2 seconds. Neurological: General: No focal deficit present. Mental Status: She is alert. Mental status is at baseline. Psychiatric: Attention and Perception: Attention and perception normal. Mood and Affect: Mood and affect normal. Speech: Speech normal. Behavior: Behavior normal. Behavior is cooperative. Thought Content: Thought content normal. Cognition and Memory: Memory is impaired. ASSESSMENT/PLAN: 1. Paronychia of finger of left hand - ICD9: 681.02, ICD10: L03.012 (primary diagnosis) Resolved. 2. Moderate dementia with other behavioral disturbance, unspecified dementia type ([facility]) - ICD9: 294.21, ICD10: F03.B18 Stable. 3. Type 2 diabetes mellitus without complication, without long-term current use of insulin ([facility]) - ICD9: 250.00, ICD10: E11.9 - Uncontrolled - Increase metformin - Counseled on healthy diet and regular exercise Portions of this note have been entered by ancillary staff. I have reviewed and when necessary edited, so that they are an adequate record of my encounter with this patient Please note that parts of this document were created using voice recognition software and therefore may contain grammatical errors. Patient verbalizes understanding of instructions from today's visit and in agreement with treatment plan. Questions answered. Agrees to call the office if questions, concerns of issues with acute symptoms not improving or if they worsen. See diagnoses and orders for additional plan(s). Allergies and medications were reviewed, list was updated, and refills given if needed. Past medical, surgical, social, and family history reviewed and updated as appropriate. Encouraged proper diet & exercise as well as compliance with taking medications. Age-appropriate health preventative measures were discussed. Return in about 3 months (around 11/12/2023) for Follow up on chronic conditions and medications.. Christina Edmonds APRN-RANDI documented in this encounter [facility] 08-09-2023 Miscellaneous Notes TC to Robert/spouse, he picked up Buspar, Aricept and Seroquel 50mg today from [facility]. Patient does not need any medication refills at this time. Patient is taking Seroquel 50mg last written by Christina Edmonds ORDER PACKER OR PACKAGER. is wanting PCP changed to Christina Edmonds ORDER PACKER OR PACKAGER, is agreed will changed. Jael Rosales LPN Seroquel was last prescribed 07/12 by Christina for 25 mg dose. Clarify is someone else is managing this RX and increased the dose The following approved medication requests have been transmitted electronically. Requested Prescriptions Pending Prescriptions Disp Refills QUEtiapine (SEROQUEL) 50 mg tablet 30 tablet 3 Sig: Take 1 tablet by mouth daily at bedtime. Signed Prescriptions Disp Refills busPIRone (BUSPAR) 5 mg tablet 60 tablet 2 Sig: Take 1 tablet by mouth two times a day. Authorizing Provider: JOSE CORBETT donepezil (ARICEPT) 5 mg tablet 30 tablet 2 Sig: Take 1 tablet by mouth daily at bedtime. Authorizing Provider: JOSE CORBETT MD Patient has been identified by name and date of : Yes, Provider Christina Edmonds Date 08/06/2023 Time 9:54 am Spouse phones for refill(s): Requested Prescriptions Pending Prescriptions Disp Refills busPIRone (BUSPAR) 5 mg tablet 60 tablet 1 Sig: Take 1 tablet by mouth two times a day. QUEtiapine (SEROQUEL) 50 mg tablet 30 tablet 3 Sig: Take 1 tablet by mouth daily at bedtime. donepezil (ARICEPT) 5 mg tablet 30 tablet 2 Sig: Take 1 tablet by mouth daily at bedtime. Date of last office visit in primary care: 07/27/2023 Date of next office visit in primary care: 08/13/2023 Please advise. Thank you. Loreto Stephens. documented in this encounter [facility] 07-27-2023 History of Present illness Narrative SUBJECTIVE Alexander Xiao is a 82 year old female here today for a check up on her medical problems. Chief Complaint Patient presents with: Follow Up HPI Alexander Xiao is a 82 year old female. Here today for a recheck on her left pinky finger. Seen 07/19 of paronychia. Antibiotics were changed from doxycycline to Augmentin. Overall things are improved and healing. No drainage/discharge at this time. Edema, redness, warmth and tenderness resolved. Wound culture was positive for streptococcus. Her medications were reviewed today and her list is now up to date. Medications Current Outpatient Medications Medication Sig mupirocin (BACTROBAN) 2 % ointment Apply 1 application to affected area three times a day for 10 days. amoxicillin-clavulanate potassium (AUGMENTIN) 875-125 mg per tablet Take 1 tablet by mouth two times a day for 10 days. metFORMIN (GLUCOPHAGE) 500 mg tablet Take 1 tablet by mouth daily with dinner AND 2 tablets daily with breakfast. levothyroxine (SYNTHROID) 112 mcg tablet Take 1 tablet by mouth once daily. busPIRone (BUSPAR) 5 mg tablet Take 5 mg by mouth two times a day. donepezil (ARICEPT) 5 mg tablet Take 5 mg by mouth daily at bedtime. QUEtiapine (SEROQUEL) 50 mg tablet Take 1 tablet by mouth daily at bedtime. Underpads 30 X 30 " pads 1 Each once daily. simvastatin (ZOCOR) 40 mg tablet Take 1 tablet by mouth daily at bedtime. triamcinolone acetonide (KENALOG) 0.1 % cream Apply 1 application to affected area three times daily. Apply sparingly to area for rash/itching. multivitamin tablet Take 1 tablet by mouth once daily. No current facility-administered medications for this visit. ALLERGIES No Known Allergies ACTIVE PROBLEM LIST Moderate Dementia (Hcc) - 07/12/2023 Hypothyroidism Hypercholesteremia Dm (Diabetes Mellitus) ([facility]) Social History Tobacco Use Smoking status: Never Smokeless tobacco: Never Review of Systems Respiratory: Negative. Cardiovascular: Negative. OBJECTIVE There were no vitals taken for this visit. Physical Exam Vitals and nursing note reviewed. Constitutional: General: She is awake. She is not in acute distress. Skin: Comments: Left pinky finger much improved, no discharge on exam today, small amount of erythema without edema, tenderness or increased warmth around the nailbed Neurological: Mental Status: She is alert. Psychiatric: Behavior: Behavior is cooperative. ASSESSMENT/PLAN: 1. Paronychia of finger of left hand - ICD9: 681.02, ICD10: L03.012 Finish antibiotic as prescribed, well healing. Portions of this note have been entered by ancillary staff. I have reviewed and when necessary edited, so that they are an adequate record of my encounter with this patient Please note that parts of this document were created using voice recognition software and therefore may contain grammatical errors. Patient verbalizes understanding of instructions from today's visit and in agreement with treatment plan. Questions answered. Agrees to call the office if questions, concerns of issues with acute symptoms not improving or if they worsen. See diagnoses and orders for additional plan(s). Allergies and medications were reviewed, list was updated, and refills given if needed. Past medical, surgical, social, and family history reviewed and updated as appropriate. Encouraged proper diet & exercise as well as compliance with taking medications. Age-appropriate health preventative measures were discussed. Return if symptoms worsen or fail to improve, for Keep next scheduled appointment.. Christina Edmonds APRN-RANDI documented in this encounter [facility] 07-21-2023 Miscellaneous Notes Wound culture reveals bacterial growth. The sensitivity does not reveal input related to Doxycyline. Patient did follow up with Christina Edmonds yesterday. She stopped the Doxy and started Augmentin. Spoke with He states that the wound is improving. Encouraged to complete all of the ATB and follow up with Christina Edmonds. documented in this encounter [facility] 07-20-2023 Instructions Christina Edmonds APRN.RANDI - 07/20/2023 1:07 PM EDT Stop the doxycycline, start Augmentin for x10 days. Soak the finger 3 times a day and apply the mupirocin. documented in this encounter [facility] 07-20-2023 History of Present illness Narrative Images from the original note were not included. SUBJECTIVE Alexander Xiao is a 82 year old female here today for a check up on her medical problems. Chief Complaint Patient presents with: [facility] care follow up HPI Alexander Xiao is a 82 year old female established patient of Jose Corbett MD. She presents today for an follow up. She was seen in [facility] on 07/16 for paronychia of the left pinky finger. Onset 07/15. On doxycycline. Minimal improvements. Still with redness, swelling, purulent drainage. She has not been soaking the finger much. Wound culture pending. Her medications were reviewed today and her list is now up to date. Medications Current Outpatient Medications Medication Sig amoxicillin-clavulanate potassium (AUGMENTIN) 875-125 mg per tablet Take 1 tablet by mouth two times a day for 10 days. mupirocin (BACTROBAN) 2 % ointment Apply 1 application to affected area three times a day for 10 days. metFORMIN (GLUCOPHAGE) 500 mg tablet Take 1 tablet by mouth daily with dinner AND 2 tablets daily with breakfast. levothyroxine (SYNTHROID) 112 mcg tablet Take 1 tablet by mouth once daily. busPIRone (BUSPAR) 5 mg tablet Take 5 mg by mouth two times a day. donepezil (ARICEPT) 5 mg tablet Take 5 mg by mouth daily at bedtime. QUEtiapine (SEROQUEL) 25 mg tablet Take 1 tablet by mouth once daily. In the morning QUEtiapine (SEROQUEL) 50 mg tablet Take 1 tablet by mouth daily at bedtime. Underpads 30 X 30 " pads 1 Each once daily. simvastatin (ZOCOR) 40 mg tablet Take 1 tablet by mouth daily at bedtime. triamcinolone acetonide (KENALOG) 0.1 % cream Apply 1 application to affected area three times daily. Apply sparingly to area for rash/itching. multivitamin tablet Take 1 tablet by mouth once daily. No current facility-administered medications for this visit. ALLERGIES No Known Allergies ACTIVE PROBLEM LIST Moderate Dementia ([facility]) - 07/12/2023 Hypothyroidism Hypercholesteremia Dm (Diabetes Mellitus) ([facility]) Social History Tobacco Use Smoking status: Never Smokeless tobacco: Never Review of Systems Respiratory: Negative. Cardiovascular: Negative. OBJECTIVE BP 98/64 Pulse 80 Resp 16 Physical Exam Vitals and nursing note reviewed. Constitutional: General: She is awake. She is not in acute distress. Appearance: Normal appearance. She is well-developed and well-groomed. She is not ill-appearing, toxic-appearing or diaphoretic. HENT: Head: Normocephalic. Right Ear: External ear normal. Left Ear: External ear normal. Nose: Nose normal. Eyes: General: Vision grossly intact. Conjunctiva/sclera: Conjunctivae normal. Pupils: Pupils are equal, round, and reactive to light. Neck: Vascular: No JVD. Trachea: Trachea normal. Pulmonary: Effort: Pulmonary effort is normal. No accessory muscle usage, prolonged expiration or respiratory distress. Musculoskeletal: Hands: Cervical back: Neck supple. Comments: Left pinky with redness, edema, small amount of purulent drainage around the nail bed Skin: General: Skin is warm and dry. Capillary Refill: Capillary refill takes less than 2 seconds. Neurological: General: No focal deficit present. Mental Status: She is alert and oriented to person, place, and time. Mental status is at baseline. Psychiatric: Attention and Perception: Attention and perception normal. Mood and Affect: Mood and affect normal. Speech: Speech normal. Behavior: Behavior normal. Behavior is cooperative. Thought Content: Thought content normal. Cognition and Memory: Cognition and memory normal. Judgment: Judgment normal. ASSESSMENT/PLAN: 1. Paronychia of finger of left hand - ICD9: 681.02, ICD10: L03.012 - Stop the doxycycline and start Augmentin, culture still pending but showing susceptibility to penicillins. Discussed care of the area, soak x3 a day and apply mupirocin. Recheck in 1 week. - AMOXICILLIN 875 MG-POTASSIUM CLAVULANATE 125 MG TABLET Portions of this note have been entered by ancillary staff. I have reviewed and when necessary edited, so that they are an adequate record of my encounter with this patient Please note that parts of this document were created using voice recognition software and therefore may contain grammatical errors. Patient verbalizes understanding of instructions from today's visit and in agreement with treatment plan. Questions answered. Agrees to call the office if questions, concerns of issues with acute symptoms not improving or if they worsen. See diagnoses and orders for additional plan(s). Allergies and medications were reviewed, list was updated, and refills given if needed. Past medical, surgical, social, and family history reviewed and updated as appropriate. Encouraged proper diet & exercise as well as compliance with taking medications. Age-appropriate health preventative measures were discussed. Return in about 1 week (around 07/27/2023), or if symptoms worsen or fail to improve, for recheck. Christina Edmonds APRN-RANDI documented in this encounter [facility] 07-20-2023 Instructions Dagmar Ortiz - 07/20/2023 11:16 AM EDT Diabetes Foot Care Instructions When you have diabetes, proper foot care is very important. Poor foot care may lead to amputation of a foot or leg. As a person with diabetes, you are more vulnerable to foot problems, because diabetes can damage your nerves and reduce blood flow to your feet. Here are some diabetes foot care tips to follow: Wash and Dry Your Feet Daily Use mild soaps Use warm water Pat your skin dry; do not rub. Thoroughly dry your feet. After washing, use lotion on your feet to prevent cracking. Do not put lotion between your toes. Examine Your Feet Each Day Check the tops and bottoms of your feet. Have someone else look at your feet if you cannot see them. Check for dry, cracked skin. Look for blisters, cuts, scratches, or other sores. Check for redness, increased warmth, or tenderness when touching any area of your feet. Check for ingrown toenails, corns, and calluses. If you get a blister or sore from your shoes, do not "pop" it. Apply a bandage and wear a different pair of shoes. Take Care of Your Toenails Cut toenails after bathing, when they are soft. Cut toenails straight across and smooth with a nail file. Avoid cutting into the corners of toes. Do not cut cuticles. If you have neuropathy (or decreased sensation in your feet) a water commissioner should always cut your toenails. Be Careful When Exercising Walk and exercise in comfortable shoes. Do not exercise when you have open sores on your feet. Protect Your Feet With Shoes and Socks Never go barefoot. Always protect your feet by wearing shoes or hard-soled slippers or footwear. Avoid shoes with high heels and pointed toes. Avoid shoes that expose your toes or heels (such as open-toed shoes or sandals). These types of shoes increase your risk for injury and potential infections. Try on new footwear with the type of socks you usually wear. Do not wear new shoes for more than an hour at a time. Change your socks daily. Look and feel inside your shoes before putting them on to make sure there are no foreign objects or rough areas. Avoid tight socks. Wear natural-fiber socks (cotton, wool, or a cotton-wool blend). Wear special shoes if your health care provider recommends them. Wear shoes/boots that will protect your feet from various weather conditions (cold, moisture, etc.). Make sure your shoes fit properly. If you have neuropathy (nerve damage), you may not notice that your shoes are too tight. Perform the "footwear test" described below. Footwear Test Use this simple test to see if your shoes fit correctly: Stand on a piece of paper. (Make sure you are standing and not sitting, because your foot changes shape when you stand.) Trace the outline of your foot. Trace the outline of your shoe. Compare the tracings: Is the shoe too narrow? Is your foot crammed into the shoe? The shoe should be at least 1/2 inch longer than your longest toe and as wide as your foot. Proper Shoe Choices The following types of shoes are best for people with diabetes Closed toes and heels Leather uppers without a seam inside At least 1/2 inch extra space at the end of your longest toe Inside of shoe should be soft with no rough areas Outer sole should be made of stiff material Shoes should be at least as wide as your feet Tips for Foot Care in Diabetes Don't wait to treat a minor foot problem if you have diabetes. Follow your health care provider's guidelines and first aid guidelines. Report foot injuries and infections to your health care provider immediately. Check water temperature with your elbow, not your foot. Do not use a heating pad on your feet. Do not cross your legs. Do not self-treat your corns, calluses, or other foot problems. Go to your health care provider or water commissioner to treat these conditions. documented in this encounter [facility] 07-20-2023 History of Present illness Narrative Consultation requested by Dr. Edmonds for an opinion regarding diabetic foot care. My final recommendations will be communicated back to the requesting physician by way of shared Medical record or letter to requesting physician via US mail. Initial Office Visit Subjective: This 82 year old female presents to clinic for diabetic foot check. Patient has multiple sores to right leg. She states these have been present for a few weeks. She is currently applying a cream to the legs and applying coban. Per , the wounds are improving. Patient admits to being diabetic for multiple years now. Patient +B/T/N in feet at this time. Patient -pain in legs when walking. No other pedal complaints at this time. No change in medications or medical history since last visit. PAIN EVALUATION No data found in the last 1 encounters. Hemoglobin A1C (%) Date Value 07/12/2023 11.4 11/27/2021 7.7 01/24/2021 7.5 12/25/2019 6.8 06/20/2019 7.1 12/02/2018 7.1 05/27/2018 7.1 Hemoglobin A1C (POCT) (%) Date Value 07/31/2020 6.7 PCP: Jose Corbett MD PAST MEDICAL HISTORY Diagnosis Date DM (diabetes mellitus) (HCC) History of endometrial cancer 2000 with radiation treatment Hypercholesteremia Hypothyroidism Serum calcium elevated 11/16/2016 Normal on 05/2017 labs Current Outpatient Medications Medication Sig doxycycline monohydrate 100 mg tablet Take 1 tablet by mouth two times a day for 7 days. mupirocin (BACTROBAN) 2 % ointment Apply 1 application to affected area three times a day for 10 days. metFORMIN (GLUCOPHAGE) 500 mg tablet Take 1 tablet by mouth daily with dinner AND 2 tablets daily with breakfast. levothyroxine (SYNTHROID) 112 mcg tablet Take 1 tablet by mouth once daily. busPIRone (BUSPAR) 5 mg tablet Take 5 mg by mouth two times a day. donepezil (ARICEPT) 5 mg tablet Take 5 mg by mouth daily at bedtime. QUEtiapine (SEROQUEL) 25 mg tablet Take 1 tablet by mouth once daily. In the morning QUEtiapine (SEROQUEL) 50 mg tablet Take 1 tablet by mouth daily at bedtime. Underpads 30 X 30 " pads 1 Each once daily. simvastatin (ZOCOR) 40 mg tablet Take 1 tablet by mouth daily at bedtime. triamcinolone acetonide (KENALOG) 0.1 % cream Apply 1 application to affected area three times daily. Apply sparingly to area for rash/itching. multivitamin tablet Take 1 tablet by mouth once daily. No current facility-administered medications for this visit. ALLERGIES No Known Allergies PAST SURGICAL HISTORY Procedure Laterality Date DELIVERY ONLY 1961 , low transverse COLONOSCOPY FLX DX W/COLLJ SPEC WHEN PFRMD 09/29/12 Colonoscopy DILATION & CURETTAGE DX&/THER NONOBSTETRIC 1989 Dilation & curettage LAPAROSCOPY SURG CHOLECYSTECTOMY 1996 Cholecystectomy, lap PAST SURGICAL HISTORY OF 2001 stitch in urethra and catheter bag for 2 months TONSILLECTOMY HX TOTAL ABDOMINAL HYSTERECT W/WO RMVL TUBE OVARY 2000 Hysterectomy, [facility]O-[facility] FAMILY HISTORY Problem Relation Age of Onset other (colon polyps [Other]) Father Diabetes Father Breast Cancer Mother 62 other (Other [Other]) Sister some type of uterine issue (not sure if cancer) None Brother None Brother Social History Tobacco Use Smoking status: Never Smokeless tobacco: Never REVIEW OF SYSTEMS GENERAL: Negative for Malaise, significant weight loss, fever RESPIRATORY: Negative for cough, wheezing and shortness of breath CARDIOVASCULAR: Negative for chest pain, leg swelling and palpitations GI: Negative for abdominal discomfort, blood in stools or black stools and change in bowel habits : Negative for dysuria, frequency and incontinence MUSCULOSKELETAL: Negative for joint pain or swelling, back pain, and muscle pain. SKIN: Negative for lesions, rash, and itching. HEMATOLOGY/LYMPHOLOGY Negative for prolonged bleeding, bruising easily, and swollen nodes. ENDOCRINE: Negative for cold or heat intolerance, polyuria, polydipsia and goiter. NEURO: negative The remainder of the review of systems is noncontributory. Objective: Patient presents to clinic ambulating in [facility] Constitutional: Pt is a well developed 82 year old female who is alert, oriented, cooperative and in no apparent distress. Eyes: Following during examination. No redness or drainage. Respiratory: RR normal and nonlabored. Even breathing. No evidence of distress. Psychology: Patient is engaged during conversation. Normal affect and mood. Does not appear depressed or anxious. Vasc: DP and PT pulses are faintly palpable bilateral. CFT is less than 5 seconds bilateral. Skin temperature is warm to warm proximal to distal bilateral. There is moderate edema or varicosities noted. Hair growth absent. Neuro: Protective sensation is decreased to the foot and toes when tested with the 5.07 SWM bilateral. Vibratory sensation is absent at the hallux bilateral. + Significant neurological defecits. Derm: Inspection and palpation performed. Nails 1-5 b/l are painful, discolored-yellow, thick, crumbly, dystrophic and with subungal debris. Skin is thin, dry, pallor and hair growth is absent. Hyperkeratosis noted to right heel. No underlying ulceration. NO ulcerations, scars, verruca or other lesions noted. Right leg has multiple areas of scaling. Ortho: Ankle joint DF is decreased with the knee extended and decreased with knee flexed. No pain or crepitus noted. STJ, MTJ ROM are full and free of pain or crepitus. Muscle strength is 5/5 for dorsiflexors, plantarflexors, inverters, everters. Digital deformities include none. Assessment: (B35.1) Onychomycosis (primary encounter diagnosis) (E11.9) Type 2 diabetes mellitus without complication, without long-term current use of insulin (HCC) (M79.675) Pain in toe of left foot (M79.674) Pain in toe of right foot (I87.2) Venous insufficiency (L85.3) Xerosis cutis Plan: 1. Patient was seen and evaluated. 2. Patient was instructed on the continued importance of diabetic foot care along with proper diet and keeping their blood sugar under control to prevent complications. Instructions given both oral and written. 3. Toenails 1-5 b/l debrided in length and thickness 4. Recommend compression for lower extremity venous insufficiency. Multiple areas of scaling. Continue with local wound care per primary care 5. Recommend lotion to b/l feet. 6. F/u in 3 months Dagmar Ortiz DPM Patient presents with: Left Foot - New Patient, Diabetic Foot Care Right Foot - New Patient, Diabetic Foot Care Due for a diabetic foot exam. documented in this encounter [facility] 07-17-2023 Instructions Rena Romo APRN.CNP - 07/17/2023 12:38 PM EST Warm soaks to finder, cover with mupirocin and bandaid Wound Care - Keep the area clean and dry -Clean with soap and water . Apply mupirocin ointment 2 - 3 times a day. If redness starts to streak up leg, need to go to ER -Call your primary care physician's office for a follow up appointment. documented in this encounter [facility] 07-17-2023 History of Present illness Narrative Images from the original note were not included. Subjective The history is provided by the patient and the spouse. No foreign languages professor was used. HPI Alexander Xiao is a 82 year old female who presents today for CC of infection in left pinky finger and redness of right lower leg, with two sores. This was noted in past 24 hours by after he picked her up from a memory care unit. She also had a crack on the heel of right foot, he has been using gold reddy cream and is improving. BP 100/62 Pulse 96 Temp 36 C (96.8 F) Resp 16 Wt 69.2 kg (152 lb 8.9 oz) SpO2 95% BMI 23.20 kg/m Social History Tobacco Use Smoking status: Never Smokeless tobacco: Never PAST MEDICAL HISTORY Diagnosis Date DM (diabetes mellitus) (HCC) History of endometrial cancer 2000 with radiation treatment Hypercholesteremia Hypothyroidism Serum calcium elevated 11/16/2016 Normal on 05/2017 labs I have confirmed and edited as necessary, the [facility] Review of Systems Constitutional: Negative for chills and fever. Musculoskeletal: Negative for joint pain and myalgias. Skin: Negative for itching and rash. Redness and swelling of left pinky finger Redness of right lower leg. All other systems reviewed and are negative. Objective Physical Exam Vitals and nursing note reviewed. Pulmonary: Effort: Pulmonary effort is normal. Musculoskeletal: Right hand: Normal. Left hand: Swelling (right pinky) and tenderness present. No deformity, lacerations or bony tenderness. Normal range of motion. Normal strength. Normal sensation. There is no disruption of two-point discrimination. Normal capillary refill. Normal pulse. Hands: Right lower leg: Swelling and laceration (abrasion) present. Left lower leg: Normal. Legs: Comments: Pustular, erythematous in marked area Skin: General: Skin is warm and dry. Neurological: Mental Status: She is alert and oriented to person, place, and time. Psychiatric: Mood and Affect: Affect normal. ASSESSMENT/PLAN: 1. Paronychia of finger of left hand - ICD9: 681.02, ICD10: L03.012 (primary diagnosis) - Begin treatment with doxycycline - No lymphangetic streaking, this was defined for patient to watch for and to seek medical care immediately if appears - Area of cellulitis defined with pen, seek further attention if this area continues to enlarge 2. Infection, skin - ICD9: 686.9, ICD10: L08.9 - Begin treatment with doxycycline, mupirocin - No lymphangetic streaking, this was defined for patient to watch for and to seek medical care immediately if appears - Area of cellulitis defined with pen, seek further attention if this area continues to enlarge Wound care discussed see patient instructions Recheck this week with PCP Diagnosis and treatment plan were discussed and questions were answered to the patient's satisfaction. Pt acknowledged understanding of concepts and follow up plan. Specific signs and symptoms that would indicate the need for higher level of care were discussed in detail warranting prompt ER evaluation. Rena Romo APRN.RANDI documented in this encounter [facility] 07-12-2023 History of Present illness Narrative Transitional Care Management Progress Note The patients TCM visit was performed within the 7 days of discharge. TCM Eligibility Documentation The following information was gathered during the initial Patient Outreach Encounter. No flowsheet data found. If no data exists please enter it manually. If data exists please delete date of discharge and date of initial contact seen below. Patient's Date of discharge: 07/10/2023 Date of initial coordinator contact after discharge: Today, 07/12/2023 Discharge diagnosis: Dementia with behavioral disturbance. Medication review completed Yes Christina Edmonds APRN.CNP Provider Documentation: In follow-up of hospitalization, Alexander Xiao is a 82 year old female with the chief complaint of discharge follow up. I have reviewed the patient s last hospital course including diagnostic testing performed during this hospitalization, their discharge medications, and my assessment and plan with the patient and any family members present at today s visit. HPI: Alexander Xiao is a 82 year old female established patient of Jose Corbett MD. She presents today accompanied by her who helps provide HPI information. Just recently she was admitted to [facility] and then transferred to [facility] in [place]. Admitted there on 06/22/2023 and then discharged on 07/10/2023. She was admitted for dementia with behavioral disturbance, confusion. Her reports she has had some progressive cognitive decline and confusion. IT got to the point where he took her to ER. She had medication adjustments made and is now back home with care per her . Other than dementia with behavioral disturbance, she has a history of type 2 DM, hypothyroid and hyperlipidemia. states at times since being home she will get up and wanders at night some, taking melatonin. Otherwise sleeping okay. Appetite is about her usual. PAST MEDICAL HISTORY: Reviewed and updated PAST MEDICAL HISTORY Diagnosis Date DM (diabetes mellitus) (HCC) History of endometrial cancer 2000 with radiation treatment Hypercholesteremia Hypothyroidism Serum calcium elevated 11/16/2016 Normal on 05/2017 labs ALLERGIES: Reviewed and updated ALLERGIES No Known Allergies MEDICATIONS: Reviewed and updated Current Outpatient Medications Medication Sig busPIRone (BUSPAR) 5 mg tablet Take 5 mg by mouth two times a day. donepezil (ARICEPT) 5 mg tablet Take 5 mg by mouth daily at bedtime. metFORMIN (GLUCOPHAGE) 500 mg tablet Take 1 tablet by mouth two times a day. levothyroxine (SYNTHROID) 88 mcg tablet Take 1 pill daily except one day per week take 1.5 pills (total 7.5 pills per week) simvastatin (ZOCOR) 40 mg tablet Take 1 tablet by mouth daily at bedtime. triamcinolone acetonide (KENALOG) 0.1 % cream Apply 1 application to affected area three times daily. Apply sparingly to area for rash/itching. multivitamin tablet Take 1 tablet by mouth once daily. QUEtiapine (SEROQUEL) 25 mg tablet Take 1 tablet by mouth once daily. In the morning QUEtiapine (SEROQUEL) 50 mg tablet Take 1 tablet by mouth daily at bedtime. Underpads 30 X 30 " pads 1 Each once daily. No current facility-administered medications for this visit. SOCIAL HISTORY: Reviewed and updated Social History Tobacco Use Smoking status: Never Smokeless tobacco: Never FAMILY HISTORY: Reviewed and updated FAMILY HISTORY Problem Relation Age of Onset other (colon polyps [Other]) Father Diabetes Father Breast Cancer Mother 62 other (Other [Other]) Sister some type of uterine issue (not sure if cancer) None Brother None Brother Review of Systems Respiratory: Negative. Cardiovascular: Negative. Psychiatric/Behavioral: Positive for sleep disturbance. Negative for agitation, self-injury and suicidal ideas. All other systems reviewed and negative, other than HPI. Physical Exam Vitals and nursing note reviewed. Constitutional: General: She is awake. She is not in acute distress. Appearance: Normal appearance. She is well-developed and well-groomed. She is not ill-appearing, toxic-appearing or diaphoretic. HENT: Head: Normocephalic. Right Ear: External ear normal. Left Ear: External ear normal. Nose: Nose normal. Eyes: General: Vision grossly intact. Conjunctiva/sclera: Conjunctivae normal. Pupils: Pupils are equal, round, and reactive to light. Neck: Vascular: No JVD. Trachea: Trachea normal. Cardiovascular: Rate and Rhythm: Normal rate and regular rhythm. Pulses: Normal pulses. Heart sounds: Normal heart sounds. No murmur heard. Pulmonary: Effort: Pulmonary effort is normal. No accessory muscle usage, prolonged expiration or respiratory distress. Breath sounds: Normal breath sounds. Musculoskeletal: Cervical back: Neck supple. Skin: General: Skin is warm and dry. Capillary Refill: Capillary refill takes less than 2 seconds. Neurological: General: No focal deficit present. Mental Status: She is alert and oriented to person, place, and time. Mental status is at baseline. Psychiatric: Attention and Perception: Attention and perception normal. Mood and Affect: Affect is flat. Speech: Speech normal. Behavior: Behavior normal. Behavior is cooperative. Thought Content: Thought content normal. Cognition and Memory: Cognition is impaired. Memory is impaired. Judgment: Judgment normal. BP 120/72 Pulse 84 Resp 16 Wt 154 lb (69.9kg) 1. I have reviewed the patient record including associated test results during the last hospitalization Yes 2. I have reviewed Lab test Yes 3. I have reviewed Radiology test Yes 4. I reviewed assessment/plan with the patient/family member Yes ASSESSMENT/PLAN 1. Moderate dementia with other behavioral disturbance, unspecified dementia type (HCC) - ICD9: 294.21, ICD10: F03.B18 (primary diagnosis) Still with wandering at night, increase Seroquel at HS to 50 mg and 25 mg in the am. - QUETIAPINE 25 MG TABLET - QUETIAPINE 50 MG TABLET 2. Hospital discharge follow-up - ICD9: V67.59, ICD10: Z09 Reviewed records brought with patient. 3. Type 2 diabetes mellitus without complication, without long-term current use of insulin (HCC) - ICD9: 250.00, ICD10: E11.9 - Control undetermined, due for labs - Continue current medications - Counseled on healthy diet and regular exercise - CONSULT TO PODIATRY - HGB A1C - LIPID PANEL, NONFASTING - ALBUMIN/CREAT RATIO RND UR 4. Hypercholesteremia - ICD9: 272.0, ICD10: E78.00 - LIPID PANEL, NONFASTING 5. Acquired hypothyroidism - ICD9: 244.9, ICD10: E03.9 - Instructed patient on importance of taking on an empty stomach either first thing in the morning or at bedtime. Check labs today. - TSH BLD - T4 FREE/FREE THYROX - T3 FREE BLD 6. Nocturnal enuresis - ICD9: 788.36, ICD10: N39.44 - UNDERPADS 30" X 30" - UNDERPADS 30" X 30" 7. Encounter for therapeutic drug monitoring - ICD9: V58.83, ICD10: Z51.81 - CBC + DIFF - COMP METABOLIC PANEL Christina Edmonds APRN.KILN WORKER documented in this encounter [facility] 06-21-2023 Discharge summary Note Date/Time June 21, 2023 4:48pm [facility] Medical Records Department [address] [place] [address] Instructions for Home/Discharge Instructions 06/21/23 1648 MR#: [id number] Acct: [id number] Name: ALEXANDER XIAO Rep #:[id number] : 1940 82 From: Teddy hill DO PCP: BECKY Nash Status:ADM ELAINE Discharge Instructions Diet Discharge Diet: No restrictions Activity Discharge Activity: No Restrictions Weight Bearing Status: Full weight bearing Follow Up Care Test Results: Test results from this visit will be discussed in further detail at your follow-up appointment, if applicable. Discharge Plan Admission Admit Date/Time: 06/19/23 19:25 Primary Reason for Your Visit: altered mentation, progressive dementia Attending Provider: Teddy Turpin Primary Care Provider: Evita Jimenez NP Consulting Providers: Viri Mcclelland Discharge Orders/Prescriptions Prescriptions: New insulin glargine-yfgn 100 unit/mL (3 mL) Insulin Pen 20 unit subcut QHS Qty: 0 0RF insulin lispro [Humalog KwikPen Insulin] 100 unit/mL Insulin Pen 7 unit subcut TIDAC Qty: 0 0RF risperidone 0.5 mg Tablet 0.5 mg PO QHS Qty: 0 0RF Continued simvastatin 40 MG tablet 40 mg PO QHS levothyroxine 88 MCG tablet 88 mcg PO DAILY Discontinued metformin 1,000 MG tablet 1,000 mg PO BIDCM Referrals / Follow Up: Evita Jimenez NP, ORDER PACKER OR PACKAGER-C [Primary Care Provider] - Disposition Disposition (needs filled in before D/C Order can be placed): Psychiatric Hospital or Unit 06/22/23 0952<Electronically signed by Teddy Turpin DO>Teddy Turpin DO CC: ORDER PACKER OR PACKAGER-C Evita Jimenez; Dr. Viri Mcclelland MD ~ Signed [facility] Work Phone: [phone]) 817-915802-12-2024 Progress note Author [facility] June 21, 2023 4:47pm Note Date/Time June 21, 2023 1:27pm [facility] Medical Records Department [address] [place] [id number] Progress Note - Hospitalist 06/21/23 1327 MR#: [id number] Acct: [id number] Name: ALEXANDER XIAO Rep #:[id number] : 1940 82 From: Teddy hill DO PCP: BECKY Nash Status:ADM ELAINE Location: [place] [address] Reason for Visit Reason for Visit: Diagnoses Hypothyroidism, unspecified (06/19/23) Type 2 diabetes mellitus without complications (06/19/23) Altered mental status, unspecified (06/19/23) Subjective Subjective Told by nursing staff that patient hardly slept overnight, was pacing the halls and generally somewhat agitated. Patient seen at bedside this morning, present. Patient was sitting comfortably in bed and appeared similar to yesterday. When asked if she slept overnight, the patient stated she did not feel tired because she had taken a nap during the day. noted that the patient had tried to call her multiple times. Patient did not remember trying to call her . Patient otherwise denied any acute pain or discomfort thismorning. No other acute concerns at this time. Objective Data Objective Data Vital Signs: Vital Signs Temp Pulse Resp BP Pulse Ox O2 Del Method 97.6 F L 74 17 140/88 H 99 Room Air 06/21/23 08:04 06/21/23 08:04 06/21/23 08:04 06/21/23 08:04 06/21/23 08:04 06/21/23 09:08 Oxygen Delivery Method Room Air Weight: 68.3 kg Body Mass Index (BMI) 22.8 Intake & Output: Intake and Output for Last 24 Hours 06/19/23 06/20/23 06/21/23 23:59 23:59 23:59 Intake Total 220 / 620 700 / 700 Output Total 0 / 0 Balance 220 / 620 700 / 700 Lab / Micro Data 06/20/23 06:14 06/20/23 06:14 Labs: Laboratory Results - last 24 hr 06/20/23 06:14: Vitamin B12 211, Syphilis Total Ab Non-reactive 06/20/23 16:21: POC Glucose 224 H 06/20/23 20:55: POC Glucose 171 H 06/21/23 08:02: POC Glucose 212 H 06/21/23 11:47: POC Glucose 148 H Micro: Microbiology 06/19/23 16:49 Mucosa - Nose SARS-CoV-2, Influenza & RSV (PCR) - Final Radiography Diagnostic Testing: Radiology Impression Brain MRI 06/21/23 09:00 IMPRESSION: 1. No acute intracranial abnormality. 2. Senescent changes. Electronically Signed: Griffin Diaz MD at 12:00 EST , Physical Exam Const alert, no apparent distress and average body habitus Constitutional Narrative: Elderly female, sitting up comfortably in bed, making appropriate eye contact but not answering several questions appropriately, no acute distress. Calm and cooperative on my exam. General Appearance: cooperative and comfortable HEENT normocephalic, head/scalp atraumatic, hearing grossly normal bilaterally, nasal mucous membranes and turbinates normal and moist oral mucous membranes Eyes PERRL, EOMs intact bilaterally and conjunctivae normal Neck full ROM, no lymphadenopathy and supple Lymph Lymphatic: no lymphadenopathy noted Chest inspection of chest normal Resp normal respiratory effort, normal air movement, no use of accessory muscles and clear to auscultation bilaterally Cardio regular rate, regular rhythm, no murmurs and peripheral pulses 2+ throughout GI normal to inspection, nondistended, normoactive bowel sounds, soft to palpation,non-tender and non-distended Back/Spine normal ROM Extremity normal to inspection, full ROM and no pedal edema Skin no rashes or lesions noted Neuro no focal motor deficits and no sensory deficits noted Speech: speech normal Psych affect normal Assessment & Plan Assessment/Plan (1) AMS (altered mental status): (2) Diabetes: (3) Hypothyroidism: PLAN: Plan Patient is an 82-year-old female who presented [facility] ED on 06/19/2023 with altered mentation. 1. Altered mentation in setting of suspected dementia with behavioral disturbances, improving; passive suicidal ideation Presented with reported worsening mentation from baseline per . Per , patient has had worsening memory loss with some behavioral disturbancesover the past few years, but has refused any geriatric or psychiatric evaluationto this point. Suspect uncontrolled hypothyroidism and diabetes contributing topatient's reported acute decline over the past few days. CT head negative on admit. UA noninfectious. A1c 13.0%, TSH elevated on admit as noted below. ESRand CRP negative. B12 low normal. Syphilis negative. MRI brain without contrast showed senescent changes, no acute findings. ? Case management following. Patient medically stable for discharge to inpatient psychiatric facility for martha-psych evaluation on 06/21. [place] slip placed. Crisis consulted. Will continue Seroquel 25 mg 3 times daily and add risperidone 0.5 mg at night on 06/21. Treating diabetes and hypothyroidism as noted below. 2. Uncontrolled hypothyroidism ? TSH 18.3, free T4 0.69, free T3 1.9 on admit. Presumed secondary to intermittent nonadherence to home Synthroid. Hemodynamically stable, no evidence of myxedema coma. Restarted home Synthroid 88 mcg daily on admission. Recommend repeat TSH/T4 check in 6 to 8 weeks. 3. Uncontrolled type 2 diabetes mellitus ? Glucose 415 on admit. A1c 13.0%. Home regimen of metformin 1000 mg twice daily, patient reports nonadherence. Started on Lantus 20 units at night, Humalog 7 units with meals plus sliding scale insulin, adjust as needed. 4. Hyperlipidemia ? Continue home statin. DVT prophylaxis: Lovenox CODE STATUS: Full code, unverified Expected disposition: Inpatient psychiatry, medically stable for discharge on 06/21, awaiting placement. Total clinical time spent by myself addressing the patient's medical issues, reviewing all the data, and collaborating with patient's care team: 35 minutes. Charges/Coding Visit Charges Inpatient E&M: 32535 Subs Hosp L2 06/21/23 1647 <Electronically signed by Teddy Turpin DO> Cosigner Signature (if applicable): CC: ~ Signed [facility] Work Phone: 1(840) 823-987502-12-2024 Progress note Author [facility] June 21, 2023 2:35pm Note Date/Time June 21, 2023 2:35pm [facility] Medical Records Department [address] [place] [address] Progress Note - Hospitalist 06/21/23 1432 MR#: [id number] Acct: [id number] Name: ALEXANDER XIAO Rep #:[id number] : 1940 82 From: Teddy hill DO PCP: BECKY Nash Status:ADM ELAINE Location: [place] [address] Hospitalist Note Patient admitted on 06/19 for altered mentation in the setting of suspected chronic progressive dementia. Found to have poorly controlled type 2 diabetes mellitus and poorly controlled hypothyroidism. Both are now being treated appropriately. MRI brain was done on the morning of 06/21 and showed senescent changes, otherwise no acute intracranial abnormalities. Patient's mentation hasimproved but she has significant memory loss issues and has had intermittent behavioral disturbances during this hospitalization. At this time, patient is medically stable for transfer to an inpatient psychiatry unit for further management. 06/21/23 1435 <Electronically signed by Teddy Turpin DO> Cosigner Signature (if applicable): CC: ~ Signed [facility] Work Phone: [phone]) 279-895902-11-2024 Progress note Author [facility] June 20, 2023 4:52pm Note Date/Time June 20, 2023 3:46pm [facility] Medical Records Department [address] [facility] [place] [address] Progress Note - Hospitalist 06/20/23 1546 MR#: [id number] Acct: [id number] Name: ALEXANDER XIAO Rep #:[id number] : 1940 82 From: Teddy hill DO PCP: BECKY Nash Status:ADM ELAINE Location: [place] [address] Reason for Visit Reason for Visit: Diagnoses Hypothyroidism, unspecified (06/19/23) Type 2 diabetes mellitus without complications (06/19/23) Altered mental status, unspecified (06/19/23) Subjective Subjective Patient admitted yesterday for worsening mentation with agitation in setting of suspected dementia. Patient seen at bedside this morning, present. Patient was sitting up comfortably in bed, in no acute distress. Patient was awake and alert, making appropriate eye contact with me. She was able to answersome questions appropriately but on further questioning, patient had several inconsistencies with her recent history. Patient is generally somewhat frustrated that she is in hospital and simply wants to go home. She denied any acute pain or discomfort at this time. notes that the patient looks better today than on admission, but she still has been telling him concerning things such as she does not want to live anymore. Objective Data Objective Data Vital Signs: Vital Signs Temp Pulse Resp BP Pulse Ox O2 Del Method 97.4 F L 108 H 17 111/79 98 Room Air 06/20/23 14:21 06/20/23 14:21 06/20/23 14:21 06/20/23 14:21 06/20/23 14:21 06/20/23 14:21 Oxygen Delivery Method Room Air Weight: 68.3 kg Body Mass Index (BMI) 22.8 Intake & Output: Intake and Output for Last 24 Hours 06/18/23 06/19/23 06/20/23 23:59 23:59 23:59 Intake Total 220 / 220 Output Total 0 / 0 Balance 220 / 220 Lab / Micro Data 06/20/23 06:14 06/20/23 06:14 Labs: Laboratory Results - last 24 hr 06/19/23 16:30: WBC 6.9, RBC 5.21, Hgb 15.4 H, Hct 45.7, MCV 87.7, MCH 29.6, MCHC 33.7, RDW Std Deviation 41.6, RDW Coeff of Saadia 12.9, Plt Count 205, MPV 9.4, Immature Gran % (Auto) 0.400, Neut % (Auto) 66.0, Lymph % (Auto) 24.3, Robeson% (Auto) 7.0, Eos % (Auto) 1.3, Baso % (Auto) 1.0, Absolute Neuts (auto) 4.5, Absolute Lymphs (auto) 1.67, Nucleated RBC % 0, ESR 3, Sodium 134 L, Potassium 3.9, Chloride 101, Carbon Dioxide 27.0, Anion Gap 6, BUN 12, Creatinine 1.01, Estim Creat Clear Calc 43.32, Est GFR (MDRD) Af Amer 67, Est GFR (MDRD) Non-Af 56 L, BUN/Creatinine Ratio 11.9, Glucose 415 H, Hemoglobin A1c 13.0 H, Calcium 9.6, Troponin I High Sens 9, C-React Prot Ext Range < 2.90, Folate 19.10, TSH 18.30 H, Free T4 0.69 L, Free T3 pg/dL 1.9 L 06/19/23 16:33: POC Glucose 373 H 06/19/23 16:49: Urine Color Yellow, Urine Clarity Clear, Urine pH 6.0, Ur Specific [place] 1.015, Urine Protein Negative, Urine Glucose (UA) 1000 H, UrineKetones 5 H, Urine Occult Blood Negative, Urine Nitrite Negative, Urine Bilirubin Negative, Urine Urobilinogen Normal, Ur Leukocyte Esterase Negative, Urine RBC 0 SEEN, Urine WBC 0 SEEN, Ur Squamous Epith Cells 0-5 SEEN, Urine Bacteria 0 SEEN, Urine Mucus 0 SEEN 06/19/23 22:55: POC Glucose 299 H 06/20/23 06:14: WBC 5.0, RBC 4.77, Hgb 14.1, Hct 42.0, MCV 88.1, MCH 29.6, MCHC 33.6, RDW Std Deviation 42.0, RDW Coeff of Saadia 12.9, Plt Count 172, MPV 9.7, Immature Gran % (Auto) 0.400, Neut % (Auto) 51.1, Lymph % (Auto) 35.5, Robeson % (Auto) 10.2 H, Eos % (Auto) 1.8, Baso % (Auto) 1.0, Absolute Neuts (auto) 2.6, Absolute Lymphs (auto) 1.77, Nucleated RBC % 0, Sodium 136, Potassium 3.8, Chloride 104, Carbon Dioxide 26.0, Anion Gap 6, BUN 11, Creatinine 0.82, Estim Creat Clear Calc 53.36, Est GFR (MDRD) Af Amer 86, Est GFR (MDRD) Non-Af 71, BUN/Creatinine Ratio 13.5, Glucose 315 H, Calcium 9.1, Total Bilirubin 1.10 H, AST 16, ALT 18, Alkaline Phosphatase 68, Total Protein 5.9 L, Albumin 3.1 L, Globulin 2.8, Albumin/Globulin Ratio 1.1 06/20/23 06:54: POC Glucose 295 H 06/20/23 11:47: POC Glucose 352 H Micro: Microbiology 06/19/23 16:49 Mucosa - Nose SARS-CoV-2, Influenza & RSV (PCR) - Final Radiography Diagnostic Testing: Radiology Impression Brain CT 06/19/23 16:20 IMPRESSION: No acute intracranial abnormality. Chronic involutional and ischemic changes of the brain. Electronically Signed: Agustín Warren MD at 17:58 EST , Chest X-Ray 06/19/23 17:15 IMPRESSION: No acute radiographic abnormalities. Electronically Signed: Agustín Warren MD at 18:00 EST , Physical Exam Const alert, no apparent distress and average body habitus Constitutional Narrative: Elderly female, sitting up comfortably in bed, making appropriate eye contact but not answering several questions appropriately, no acute distress. Calm and cooperative on my exam. General Appearance: cooperative and comfortable HEENT normocephalic, head/scalp atraumatic, hearing grossly normal bilaterally, nasal mucous membranes and turbinates normal and moist oral mucous membranes Eyes PERRL, EOMs intact bilaterally and conjunctivae normal Neck full ROM, no lymphadenopathy and supple Lymph Lymphatic: no lymphadenopathy noted Chest inspection of chest normal Resp normal respiratory effort, normal air movement, no use of accessory muscles and clear to auscultation bilaterally Cardio regular rate, regular rhythm, no murmurs and peripheral pulses 2+ throughout GI normal to inspection, nondistended, normoactive bowel sounds, soft to palpation,non-tender and non-distended Back/Spine normal ROM Extremity normal to inspection, full ROM and no pedal edema Skin no rashes or lesions noted Neuro no focal motor deficits and no sensory deficits noted Speech: speech normal Psych affect normal Assessment & Plan Assessment/Plan (1) AMS (altered mental status): (2) Diabetes: (3) Hypothyroidism: PLAN: Plan Patient is an 82-year-old female who presented [facility] ED on 06/19/2023 with altered mentation. 1. Altered mentation in setting of suspected dementia with behavioral disturbances, improving; passive suicidal ideation Presented with reported worsening mentation from baseline per . Per , patient has had worsening memory loss with some behavioral disturbancesover the past few years, but has refused any geriatric or psychiatric evaluationto this point. Suspect uncontrolled hypothyroidism and diabetes contributing topatient's reported acute decline over the past few days. CT head negative on admit. UA noninfectious. A1c 13.0%, TSH elevated on admit as noted below. ESRand CRP negative. B12 and syphilis pending. ? MRI brain without contrast ordered for tomorrow. Continue Seroquel 25 mg 3 times daily. Treating diabetes and hypothyroidism as noted below. Case management consulted; potentially interested and either assisted living or memory care unit for patient if she was to qualify. Notably, discussed with nursing staff and patient's that patient does not have capacity, and if patient tried to leave AMA we would place a medical hold at that time. 2. Uncontrolled hypothyroidism ? TSH 18.3, free T4 0.69, free T3 1.9 on admit. Presumed secondary to intermittent nonadherence to home Synthroid. Hemodynamically stable, no evidence of myxedema coma. Restarted home Synthroid 88 mcg daily. Recommend repeat TSH/T4 check in 6 to 8 weeks. 3. Uncontrolled type 2 diabetes mellitus ? Glucose 415 on admit. A1c 13.0%. Home regimen of metformin 1000 mg twice daily, patient reports nonadherence. Started on Lantus 20 units at night, Humalog 7 units with meals plus sliding scale insulin, adjust as needed. 4. Hyperlipidemia ? Continue home statin. DVT prophylaxis: Lovenox CODE STATUS: Full code, unverified Expected disposition: TBD Total clinical time spent by myself addressing the patient's medical issues, reviewing all the data, and collaborating with patient's care team: 35 minutes. Charges/Coding Visit Charges Inpatient E&M: 70290 Subs Hosp L2 06/20/23 1652 <Electronically signed by Teddy Turpin DO> Cosigner Signature (if applicable): CC: ~ Signed [facility] Work Phone: [phone]) [phone] History and physical note Author Viri Mcclelland [facility] June 19, 2023 7:47pm Note Date/Time June 19, 2023 7:29pm [facility] Medical Records Department [address] [place] [address] H&P Exam - Hospitalist 06/19/231924 MR#: [id number] Acct: [id number] Name: ALEXANDER XIAO Rep #[id number] : 1940 82 From: Viri Mcclelland MD PCP: BECKY Nash Status:ADM ELAINE Location: [place] [address]- HPI - General General Date of Admission: 06/19/23 Date of Service: 06/19/23 Chief Complaint: AMS HPI Narrative ALEXANDER XIAO, is a Patient is an 82-year-old female history of diabetes, dementia, hypothyroidism who presented to [facility] ED 06/19/2023 with confusion. Patient has declined for several years and was sent to [place] to see a specialist but she did not want to go to family member did notforce her. Has continued to decline since that time. Does report she has been more confused since about 11 AM when she was startled while sleeping in her chair. No fever at home, no head trauma. She has not been taking her medications at home. In the ED glucose is 415 with a hemoglobin slightly elevated at15.4 but labs otherwise unremarkable. UA and CT had no acute process. Concern for delirium or encephalopathy and hospitalist contacted for admission. Patientevaluated at bedside with family member whom she lives with. Reportedly at baseline she does have difficulty with memory and being somewhat combative but overall does fairly well at home however since this morning has been increasingly combative, agitated, and confused and family member concerned that she has underlying medical process and also does not feel safe taking her home at this time. [facility] Medical History (Updated 06/19/23 @ 19:[address] Viri Mcclelland MD) COVID COVID-19 Diabetes Hypothyroidism Syncope Home Medications levothyroxine 88 mcg tablet 88 mcg PO DAILY thyroid 06/25/18 [History Last Taken Unknown] metformin 1,000 mg tablet 1,000 mg PO BIDCM diabetes 06/25/18 [History Last Taken Unknown] simvastatin 40 mg tablet 40 mg PO QHS cholesterol 06/25/18 [History Last Taken Unknown] Allergy/AdvReac Type Severity Reaction Status Date / Time No Known Allergies Allergy Verified 06/19/23 15:55 Surgical History History of hysterectomy Social History Smoking Status: Never smoker ROS ROS Narrative General: Denies fever/chills HENT: Denies headache, denies stuffy nose, denies sore throat EYES: Denies changes in vision Resp: Denies cough, denies shortness of breath Cardiac: Denies chest pain GI: Denies abdominal pain, denies changes in bowel, denies nausea/vomiting : Denies changes in urination Extremity: Denies swelling MSK: Denies weakness Neuro: Denies any numbness/tingling Heme: Denies any bleeding or bruising Skin: Denies rashes Psychiatric: Patient irritated and agitated Vital Signs Vital Signs Vital Signs: 06/19/23 15:55 06/19/23 17:00 06/19/23 18:43 Temperature 98.9 F 98.2 F Temperature Source Temporal Pulse Rate 81 94 65 Respiratory Rate 16 20 H 16 Blood Pressure 147/85 H 141/74 H 153/68 H Blood Pressure Mean 105 96 96 Pulse Ox 99 94 98 Oxygen Delivery Method Room Air Room Air Weight Weight: 69.6 kg Body Mass Index (BMI) 23.3 Physical Exam Narrative General: Alert, unable to answer orientation questions, agitated HEENT: Atraumatic, normocephalic, poor dentition Eyes: Anicteric, normal conjunctiva, extraocular movements grossly intact Neck: Supple Respiratory: Clear to auscultation bilaterally, normal respiratory effort Cardiovascular: Regular rate and rhythm GI: Soft, nontender, nondistended Extremities: No edema Musculoskeletal: Moving all extremities, did not note any asymmetry and movements Neuro: No overt focal neurological deficits Skin: No rashes appreciated Psych: Uncooperative, agitated Results Lab / Micro Data 06/19/23 16:30 06/19/23 16:30 Labs: Laboratory Results - last 24 hr 06/19/23 16:30: WBC 6.9, RBC 5.21, Hgb 15.4 H, Hct 45.7, MCV 87.7, MCH 29.6, MCHC 33.7, RDW Std Deviation 41.6, RDW Coeff of Saadia 12.9, Plt Count 205, MPV 9.4, Immature Gran % (Auto) 0.400, Neut % (Auto) 66.0, Lymph % (Auto) 24.3, Robeson% (Auto) 7.0, Eos % (Auto) 1.3, Baso % (Auto) 1.0, Absolute Neuts (auto) 4.5, Absolute Lymphs (auto) 1.67, Nucleated RBC % 0, Sodium 134 L, Potassium 3.9, Chloride 101, Carbon Dioxide 27.0, Anion Gap 6, BUN 12, Creatinine 1.01, Estim Creat Clear Calc 43.32, Est GFR (MDRD) Af Amer 67, Est GFR (MDRD) Non-Af 56 L, BUN/Creatinine Ratio 11.9, Glucose 415 H, Calcium 9.6, Troponin I High Sens 9 06/19/23 16:33: POC Glucose 373 H 06/19/23 16:49: Urine Color Yellow, Urine Clarity Clear, Urine pH 6.0, Ur Specific Kilauea 1.015, Urine Protein Negative, Urine Glucose (UA) 1000 H, UrineKetones 5 H, Urine Occult Blood Negative, Urine Nitrite Negative, Urine Bilirubin Negative, Urine Urobilinogen Normal, Ur Leukocyte Esterase Negative, Urine RBC 0 SEEN, Urine WBC 0 SEEN, Ur Squamous Epith Cells 0-5 SEEN, Urine Bacteria 0 SEEN, Urine Mucus 0 SEEN Micro: Microbiology 06/19/23 16:49 Mucosa - Nose SARS-CoV-2, Influenza & RSV (PCR) - Final Imaging Radiology Impression Brain CT 06/19/23 16:20 IMPRESSION: No acute intracranial abnormality. Chronic involutional and ischemic changes of the brain. Electronically Signed: Agustín Warren MD at 17:58 EST , Chest X-Ray 06/19/23 17:15 IMPRESSION: No acute radiographic abnormalities. Electronically Signed: Agustín Warren MD at 18:00 EST , Assessment & Plan Assessment/Plan (1) AMS (altered mental status): (2) Hypothyroidism: (3) Diabetes: PLAN: Plan #Change in mental status -Does have some baseline dementia and steady decline however today has had significant worsening concerning that there may be underlying medical process given the acute nature -UA does not appear infectious -CT head no acute process -Patient reportedly not taking her medicines so is possible that significant thyroid abnormality could be cause or contributor, check TSH, free T3, free T4 -Check B12, syphilis -Also check ESR and CRP -Patient also has significantly elevated glucose despite only being on metforminbefore though not yet identified any underlying infectious process, check A1c -Schedule melatonin -Schedule Seroquel with Seroquel as needed -If laboratory workup unrevealing may benefit from ordering MRI in the a.m. -Patient has no overt focal deficits and suspect this is more encephalopathy or delirium so do not think NIH and stroke workup acutely necessary at this time asthis is more global and sounds to be more likely underlying medical nature -In ED patient did make comments about killing herself, when asked about plan she was unable to confirm nor deny and is very evasive and would not commit to safety at that time, short-term suicide precautions, may need psych eval once medically cleared if no medical etiology identified patient still has any ideations or threats. Family member at bedside reports that occasionally she will threaten to shoot herself or make comments like that but had not made any earlier today until exam -Case management consult #Hypothyroidism -Resume Synthroid -TSH, free T4 as patient has not been taking her medication and abnormal thyroidfunction could be a cause or contributor to present #Type 2 diabetes mellitus -Glucose checks and sliding scale insulin -A1c #DVT ppx: Lovenox subcu Viri Mcclelland MD Time spent in the patient's overall evaluation,decision-making process, review of diagnostic data, adjustment of management, discussion with other providers, nursing nursing and ancillary staff involved in patient's care documentation, 58Minutes Charges/Coding Visit Charges Inpatient E&M: 11374 Init Hosp L2 06/19/231946 <Electronically signed by Viri Mcclelland MD> Cosigner Signature (if applicable): CC: ORDER PACKER OR PACKAGER-C Evita Jimenez; Dr. Viri Mcclelland MD~ Signed [facility] Work Phone: [phone] 440-301202-10-2024 Discharge summary Author Artur Gallardo [facility] June 19, 2023 6:51pm Note Date/Time June 19, 2023 4:42pm [facility] Medical Records Department [address] [place] [address] Emergency Department Summary 06/19/23 MR#: [id number] Acct: [id number] Name: ALEXANDER XIAO Rep #:[id number] : 1940 82 From: Artur Gallardo DO PCP: BECKY Nash Status:REG ER Location: ED HPI History of Present Illness Chief Complaint: Confusion Narrative Narrative: 82-year-old female with confusion. states this is a long-term thing andshe was seen by nurse practitioner 2 years ago and sent in to [place] to see a specialist and dementia. Patient did not want to go do this and her didnot force her. It sounds like she has had steady decline of confusion since then. Patient has not seen her primary care physician since then. Patient's gives the history as patient is very confused. Patient's statesthat she is very confused since about 11 AM this morning when she was startled while sleeping in a chair and she has not really made sense today. He states hehas had the chills or at least he seems to be shaky. If you asked the patient she will say yes. Patient has not had any trauma to the head. She has not had a fever at home. She has not had vomiting, diarrhea. No dysuria or hematuria per . Patient has not been taking her medications at home and she normally would manage these medications on her own. [facility] Medical History COVID COVID-19 Diabetes Hypothyroidism Syncope Home Medications levothyroxine 88 mcg tablet 88 mcg PO DAILY thyroid 06/25/18 [History Last Taken Unknown] metformin 1,000 mg tablet 1,000 mg PO BIDCM diabetes 06/25/18 [History Last Taken Unknown] simvastatin 40 mg tablet 40 mg PO QHS cholesterol 06/25/18 [History Last Taken Unknown] Allergy/AdvReac Type Severity Reaction Status Date / Time No Known Allergies Allergy Verified 06/19/23 15:55 Surgical History History of hysterectomy Social History Smoking Status: Never smoker ROS ROS ED Review of Systems ROS Unobtainable: due to mental condition and due to mental status EXAM Physical Exam Const Vital Signs: 06/19/23 15:55 06/19/23 17:00 06/19/23 18:43 Temperature 98.9 F 98.2 F Temperature Source Temporal Pulse Rate 81 94 65 Respiratory Rate 16 20 H 16 Blood Pressure 147/85 H 141/74 H 153/68 H Blood Pressure Mean 105 96 96 Pulse Ox 99 94 98 Oxygen Delivery Method Room Air Room Air Positive well nourished General Appearance ED: NAD; Negative for pallor HEENT Reports moist mucous membranes Eyes PERRL and EOMs intact bilaterally General Eye ED: Yes pale conjunctiva Chest Wall inspection of chest normal Resp normal respiratory effort and clear to auscultation bilaterally Auscultation: Negative for rales, rhonchi or wheezes Cardio regular rate and regular rhythm GI normal to inspection, nondistended, normoactive bowel sounds Extremity General Extremety ED: Negative for edema or tenderness General Extremity: Negative for edema Neuro CN's II-XII intact bilaterally and no sensory deficits noted Sensorium / Orientation: alert Motor Exam: strength 5/5 throughout Psych Psych Narrative: Confused Skin General Skin Exam: Negative for jaundice or pallor MDM MDM MDM Narrative Medical decision making narrative: 82-year-old female presenting with for confusion. This appears to be a long-term issue but is acutely changed at 11 AM today. Differential includes stroke, intracranial hemorrhage, dehydration, anemia, dehydration, electrolyte abnormalities, ACS, COVID, influenza, RSV, UTI, dementia. CBC obtained to assess white blood cell count, hemoglobin, platelets. This is within normal limits with exception of a hemoglobin of 15.4. BMP shows normal renal function,electrolytes are normal with exception of a sodium 134. Glucose 415 without anion gap. High-sensitivity troponin is 9. EKG on my interpretation shows a normal sinus rhythm with a rate of 78 bpm without sign ischemic change or ectopy. Chest x-ray my interpretation shows no acute process. Radiology interprets and agrees. Urinalysis negative for infection. After discussion with the he does not feel he can take care of her at home because she isso confused. Her CT brain was negative. It was at this point the patient's stated that she might of had some trouble speaking earlier although thiswas not mentioned prior to talking about admission. Patient is awake and alert but very confused to place, time, situation. was amenable to this as he is concerned for possible stroke. Patient does not have any focal neurologicdeficits or lateralizing signs or symptoms on examination. I discussed her with him the hospitalist for admission. Impression: 1. Altered mental status 2. Hyperglycemia Lab Data Attestation: I reviewed the patient's lab results. Labs: Laboratory Results - last 24 hr 06/19/23 06/19/23 06/19/23 16:30 16:33 16:49 WBC 6.9 RBC 5.21 Hgb 15.4 H Hct 45.7 MCV 87.7 MCH 29.6 MCHC 33.7 RDW Std Deviation 41.6 RDW Coeff of Saadia 12.9 Plt Count 205 MPV 9.4 Immature Gran % (Auto) 0.400 Neut % (Auto) 66.0 Lymph % (Auto) 24.3 Robeson % (Auto) 7.0 Eos % (Auto) 1.3 Baso % (Auto) 1.0 Absolute Neuts (auto) 4.5 Absolute Lymphs (auto) 1.67 Nucleated RBC % 0 Sodium 134 L Potassium 3.9 Chloride 101 Carbon Dioxide 27.0 Anion Gap 6 BUN 12 Creatinine 1.01 Estim Creat Clear Calc 43.32 Est GFR (MDRD) Af Amer 67 Est GFR (MDRD) Non-Af 56 L BUN/Creatinine Ratio 11.9 Glucose 415 H Calcium 9.6 Troponin I High Sens 9 Urine Color Yellow Urine Clarity Clear Urine pH 6.0 Ur Specific Kilauea 1.015 Urine Protein Negative Urine Glucose (UA) 1000 H Urine Ketones 5 H Urine Occult Blood Negative Urine Nitrite Negative Urine Bilirubin Negative Urine Urobilinogen Normal Ur Leukocyte Esterase Negative Urine RBC 0 SEEN Urine WBC 0 SEEN Ur Squamous Epith Cells 0-5 SEEN Urine Bacteria 0 SEEN Urine Mucus 0 SEEN POC Glucose 373 H Radiography Diagnostic Testing: Clinical Impression(s) from Imaging Studies Brain CT 06/19/23 16:20 IMPRESSION: No acute intracranial abnormality. Chronic involutional and ischemic changes of the brain. Electronically Signed: Agustín Warren MD at 17:58 EST , Chest X-Ray 06/19/23 17:15 IMPRESSION: No acute radiographic abnormalities. Electronically Signed: Agustín Warren MD at 18:00 EST , Discharge Plan Triage Chief Complaint: Confusion ED Provider: Artur Gallardo Dx/Rx/DC Orders Prescriptions: No Action simvastatin 40 MG tablet 40 mg PO QHS levothyroxine 88 MCG tablet 88 mcg PO DAILY metformin 1,000 MG tablet 1,000 mg PO BIDCM Primary Care Provider: Evita Jimenez NP Referrals: Evita Jimenez ORDER PACKER OR PACKAGER, ORDER PACKER OR PACKAGER-C [Primary Care Provider] - What to do if you have Problems For any increased pain, shortness of breath, bleeding, nausea or vomiting, chestpain, or any unexpected problems, contact your Primary Care Provider. Call [facility] ([phone]) or report to the closest Emergency Room. Call 911 if necessary. 06/19/23 1851 <Electronically signed by Artur Gallardo DO> Cosigner Signature (if applicable): CC: ORDER PACKER OR PACKAGER-C Evita Jimenez ~ Signed [facility] Work Phone: [phone] History of Present illness Narrative* Devin Carrasquillo MD - 06/19/2023 1:13 PM EST Patient presents with: Pain: Neck pain, fell [...] twice daily and take 1 tablet daily atlunch simvastatin (ZOCOR) 40 mg tablet Take 1 [...] kg (153 lb 6.4 oz) SpO2 99% BMI23.32 kg/m PHYSICAL EXAM: GEN: pleasant, no acute distress, alert, not oriented to place or time. provides history. HEENT: PERRL, EOMI, MMM NECK: supple, no lymphadenopathy, no thyromegaly. No midline or paraspinal tenderness. No trapeziusor shoulder tenderness. HEART: regular rate, regular rhythm, [...] persists. Devin Carrasquillo MD [facility] Instructions* Patient Instructions* Evita Jimenez APRN.JESSENIA - 02/27/2022 8:40 AM EDT Let us know if needing additional help at home or wanting to follow up with hospitalist regarding memory documented in this encounterW[facility]10-[facility]-2022 History of Present illness Narrative* Evita Jimenez APRN.CNS - 02/27/2022 8:20 AM EDT SUBJECTIVE: DILATED RETINAL EXAM due on 06/03/2019 DTAP,TDAP,TD(2 - Td or Tdap) due on 09/25/2020 DEPRESSION ASSESSMENT Never done URINE ALBUMIN:CREATININE RATIO due on 01/24/2022 HPI Alexander Xiao is a 81 year old female. PMH significant for ACTIVE PROBLEM LIST Hypothyroidism Hypercholesteremia Dm (Diabetes Mellitus) (Hcc) HPI excerpted from previous visits: Last seen by Jose Corbett MD 07/2020. She notes she left at her last visit because she did not want to wear down. Left without being seen. Presents with her who helps with history of present illness. Notes memory is significantly decreased, can get lost. Reports able to complete ADLs and IADLs without difficulty. indicates he works 4 hours/day.Notes often forgets that he is working. Notes she exercises and feels well with this. Reports not needing help at home at this time. Video visit 01/29/2022 for Covid19. Prescribed paxlovid. [facility] 02/02/2022 for COVID-19 virus infection, dehydration, [...] Continue to note decreased memory, has declined hospitalist in the past. Prefers to not take [...] twice daily and take 1 tablet daily atlunch simvastatin (ZOCOR) 40 mg tablet Take 1 [...] problem - ICD9: 780.93, ICD10: R41.3 Declines hospitalist / further evaluation at this time. Prefers [...] Level: 4 - Moderate documented in this encounterW[facility]09-[facility]-2022 History of Present illness Narrative* Evita Jimenez APRN.CNS - 01/29/2022 1:40 PM EDT Telemedicine Follow-up for COVID-19 Infection Audio only was used for evaluation of this patient. Location of patient: [facility] Alexander Xiao is a 81 [...] (COVID-19). Nirmatrelvir/Ritonavir (Paxlovid) Eligibility and Patient Discussion [facility] Formulary Restriction Criteria: Adult outpatients [...] reported. The discussion included alternatives to receiving nirmatrelvir/rit onavir, including clinical trials, and potential the risks and benefits of those alternatives. The patient was provided electronically with the "Fact Sheet for Patients, Parents and Caregivers". The patient was also instructed that in addition to the treatment with nirmatrelvir/ritonavir, he/she should continue to self-isolate and use infection control measures (e.g., wear mask, isolate, social distance, avoid sharing personal items, clean and disinfect "high touch" surfaces, and frequent h andwashing) according to CDC guidelines. The patient stated understanding and gave verbal consent to proceeding with nirmatrelvir/ritonavir treatment. Evita Jimenez APRN.CNS January 29, 2022 1:47 PM 20 min in call documented in this encounterWy[facility]ot [facility]09-22-2022 Instructions* Patient Instructions* Evita JimenezBROOKLYNN mckay.NEONATAL INTENSIVE CARE UNIT NURSE - 01/29/2022 1:06 PM EDT Beginning Home Isolation Isolation is used to separate people infected with SARS-CoV-2, the virus that causes COVID-19, frompeople who are not infected. People who are [...] to your local emergency facility: Notify the thickener operator that you are seeking care for [...] expert at your local health department to determinewhen you can be around others. How to Manage Common Symptoms Associated with COVID for Adults Fever- Fever is a temperature over 100.4 F and can occur when the body is fighting an infection. Tohelp treat a fever: Drink plenty of fluids [...] your chest such as Vicks, which can helpreduce cough. Try cough drops. Avoid smoking and other strong odors or perfumes. Try breathing exercises to keep your lungs open and clear. Take a big deep breath through your noseand hold for 5 seconds before slowly releasing. [...] of water every 10-15 minutes and increase astolerated. You can try sucking an ice cube [...] you with PAXLOVID for the treatment of clod-bt-imphhjoe coronavirus disease (COVID-19) caused by the SARS-CoV-2 virus. This Fact Sheet contains information to help you understand the risks and benefits of taking the PAXLOVID you have received or may receive. The U.S. Food and Drug Administration (FDA) has issued an Emergency Use Authorization (EUA) to makePAXLOVID available during the COVID-19 pandemic (for more details about an EUA please see What is an Emergency Use Authorization? at the end of this document). PAXLOVID is not an FDA-approved medicine in the [place]. Read this Fact Sheet for information about PAXLOVID. Talk to your healthcareprovider about your options or if you have any questions. It is your choice to take PAXLOVID. What is COVID-19? COVID-19 is caused by a virus called a coronavirus. You can get COVID-19 through close contact withanother person who has the virus. COVID-19 illnesses have ranged from very pdbk-yr-cbsrsg, including illness resulting in . While information so far suggests that most COVID-19 illness is mild, serious illness can happen and maycause some of your other medical conditions to become worse. Older people and people of all ages with severe, long lasting (chronic) medical conditions like heart disease, lung disease, and diabetes,for example seem to be at higher risk of being hospitalized for COVID-19. What is PAXLOVID? PAXLOVID is an investigational medicine used to treat gvss-jj-inztjfug COVID-19 in adults and children [12 years [...] of using PAXLOVID to treat people with fnpm-fg-ounkotti COVID-19. The FDA has authorized the emergency use of PAXLOVID for the treatment of xtsm-ts-kexssrcl COVID-19in adults and children [12 years of age [...] the medicines you take, including prescription and chht-jsk-ajilhkw medicines, vitamins, and herbal supplements. Some medicines [...] you have any questions about contraceptive methods thatmight be right for you. How do I [...] missed dose and take the next dose atyour regular time. Do not take 2 doses [...] oral midazolam Apalutamide Carbamazepine, phenobarbital, phenytoin Rifampin [place] s Wort (hypericum perforatum) Taking PAXLOVID with [...] (remdesivir) is FDA-approved for the treatment of hyqj-za-pderybmc COVID-19 in certain adults and children. Talk with your doctor to see if Veklury is appropriate for you. Like PAXLOVID, FDA may also allow for the emergency use of other medicines to treat people with COVID-19. Go to https://www.fda.gov/vyavinuby-quisozzmxmyp-ekrhwyidcrf/oen-sslua-npcpoccmzk-and- policy-framework/uxoxgcdcy-rrf-zsniuikrgvysm for information on the emergency use of other medicines that are authorized by FDA to treat people with COVID-19. Your healthcare provider may talk with you aboutclinical trials for which you may be eligible. It is your choice to be treated or not to be treated with PAXLOVID. Should you decide not to receive it or for your child not to receive it, it will not change your standard medical care. What if I am or ? There is electroneurodiagnostic technician treating women or mothers with PAXLOVID. For a motherand unborn baby, the benefit of taking PAXLOVID may be greater than the risk from the treatment. Ifyou are , discuss your options and specific situation with your healthcare provider. It is recommended that you use effective barrier contraception or do not have sexual activity whiletaking PAXLOVID. If you are , discuss your options and specific situation with your healthcare provider. How do I report side effects with PAXLOVID? Contact your healthcare provider if you have any side effects that bother you or do not go away. Report side effects to [employer] at www.fda.gov/medwatch or call 5-433-DNG3712 or you can reportside effects to [employer] at the contact information provided below. Website Fax number Telephone number [employer] How should I store PAXLOVID? Store PAXLOVID [...] (EUA). The EUA is supported by a [employer] Consultant of Health and Human Service (HHS) declaration that circumstances exist to justify the emergency use of drugs and biological productsduring the COVID-19 pandemic. PAXLOVID for the treatment of bgjo-cy-azheiohm COVID-19 in adults and children [12 years of age andolder weighing at least 88 pounds (40 kg)] [...] telephone number provided below. Website Telephone number [employer] (8-971-P78-PACK) You can also go to www.[employer] or call for more information. Pfizer Distributed by [employer] [place] [address] [id number] Revised: 25 July 2021 documented in this encounterW[facility]ot [facility]09-22-2022 Miscellaneous Notes* Telephone Encounter - Camilla Cox LPN - 01/29/2022 8:45 AM EDT Phone call placed patient advised (see prior provider encounter) Patient verbalized understanding, agreed with plan of care, reported no current symptoms. Camilla Cox LPN * Telephone Encounter - Devin Carrasquillo MD - 01/29/2022 7:21 AM EDT COVID test was positive. Stay home for [...] symptoms; ER if severe. [facility] History of Present illness Narrative* Jackie Nunes, TUG MASTER.KILN WORKER - 01/28/2022 4:26 PM EDT Subjective HPI Alexander Xiao is a 81 year old female who presents with recent close exposure to COVID-19. Herhusband tested positive for COVID 4 days ago. [...] twice daily and take 1 tablet daily atlunch simvastatin (ZOCOR) 40 mg tablet Take 1 [...] Z20.822 - ASYMPTOMATIC ELECTIVE COVID-19 Jackie Nunes APRN.CNP documented in this encounterW[facility]09-21-2022 Instructions* Patient Instructions* Jackie Nunes APRN.CNP - 01/28/2022 4:26 PM EDT How to Protect Yourself & Others from COVID-19 Wash your hands often Wash your hands often with soap and water for at least 20 seconds especially after you have been muriel public place, or after blowing your nose, coughing, or sneezing. If soap and water are not readily available, use a hand bee producer that contains at least 60% alcohol. Cover [...] or are otherwise concerned you have COVID-19, weask that you do not come to any [facility] facility without calling your primary care physician or speaking to a provider using a virtual visit using [facility]. You will be evaluated to determine if you require being seen in person or if you meet CDC guidelines for testing for COVID-19 based on symptoms, travel and exposures. If you meet criteria for testing, your [employer] provider or primary care physician will [...] at least 30 days of prescription medications, leeq-aeg-nstdpbb medicines, and supplies on hand in case [...] provider if stress gets in the way ofyour daily activities for several days in a row. If you are feeling overwhelmed with emotions like sadness, depression, or anxiety, or feel like youwant to harm yourself or others: Call 911 if you feel like you want to harm yourself or others Visit the Disaster Distress Helpline call , [place] [address] Visit the National Domestic Violence Hotline or call and TTY Visit the National Suicide Prevention Lifeline or call and TTY or text Most importantly, don't panic. By following basic prevention measures such as hand hygiene and cover your cough, you are helping to keep yourself and others healthy. Additional information can be found on the [facility] and [facility] web sites: https://www.cdc.gov/coronavirus/2019-nCoV/index.html https://[facility].org/coronavirus Beginning Home Isolation Isolation is used to separate people infected with SARS-CoV-2, the virus that causes COVID-19, frompeople who are not infected. People who are [...] to your local emergency facility: Notify the thickener operator that you are seeking care for [...] expert at your local health department to determinewhen you can be around others. How to Manage Common Symptoms Associated with COVID for Adults Fever- Fever is a temperature over 100.4 F and can occur when the body is fighting an infection. Tohelp treat a fever: Drink plenty of fluids [...] your chest such as Vicks, which can helpreduce cough. Try cough drops. Avoid smoking and other strong odors or perfumes. Try breathing exercises to keep your lungs open and clear. Take a big deep breath through your noseand hold for 5 seconds before slowly releasing. [...] of water every 10-15 minutes and increase astolerated. You can try sucking an ice cube [...] or concerning to you. documented in this encounterW[facility]09-02-2022 Instructions* Patient Instructions* Rena Romo APRN.CNP - 01/09/2022 10:33 AM [...] Dermatology if no improvement documented in this encounterWy[facility]ot [facility]09-02-2022 History of Present illness Narrative* Rena Romo APRN.CNP - 01/09/2022 10:25 AM EDT Images from the original note were not included. Subjective The history is provided by the patient and the spouse. No foreign languages professor was used. GILL Xiao is a [...] have confirmed and edited as necessary, the [facility] Review of Systems Constitutional: Negative for [...] for higher level of care were discussed indetail warranting prompt ER evaluation. Rena Romo APRN.CNP documented in this encounterWyandot [facility]07-28-2022 Miscellaneous Notes* Telephone Encounter - Lashay Quinones Ma - 12/04/2021 1:53 PM EDT Letter mailed to pt notifying her of normal stool test. If questions to contact the office. Lashay Quinones Ma * Telephone Encounter - Evita Jimenez APRN.CNS - 12/04/2021 1:46 PM EDT Please let her know fecal occult blood testing was negative documented in this encounterWy[facility]07-26-2022 Miscellaneous Notes* Telephone Encounter - Delilah Li RN - 12/02/2021 9:28 AM EDT Patient returned call and given provider's message below and patient verbalized understanding. La Li RN * Telephone Encounter - Rekha Montes De Oca MA - 12/02/2021 9:23 AM EDT Unable to reach patient. Left VM to return call to office. Please read below and advise. Rekha Montes De Oca MA * Telephone Encounter - Evita Jimenez APRN.CNS - 12/02/2021 7:43 AM EDT Please let her know CBC, TSH, and [...] Abs Lymph 1.00 - 4.00 k/uL 1.87 Robeson% % 9.5 Abs Robeson <0.87 k/uL 0.52 Eosin% % 2.9 Abs [...] - 80.0 ng/mL 42.6 documented in this encounterWyandot [facility]07-21-2022 History of Present illness Narrative* Evita Jimenez APRN.CNS - 11/27/2021 9:20 AM EDT SUBJECTIVE: SHINGRIX VACCINE(2 of 3) due on 06/06/2007 DILATED RETINAL EXAM due on 06/03/2019 FECAL OCCULT BLOOD due on 12/20/2019 DTAP,TDAP,TD(2 - Td or Tdap) due on 09/25/2020 DIABETIC FOOT EXAM due on 01/07/2021 ADVANCE DIRECTIVE DISCUSSION Never done HBA1C due on 07/24/2021 GILL Alexander Xiao is a 81 year old female. PMH significant for ACTIVE PROBLEM LIST Hypothyroidism Hypercholesteremia Dm (Diabetes Mellitus) (Hcc) Last seen by Jose Corbett MD 07/2020. She notes she left at her last visit because she did not want to wear down. Left without being seen. Presents with her who helps with history of present illness. Notes memory is significantly decreased, can get lost. Reports able to complete ADLs and IADLs without difficulty. indicates he works 4 hours/day.Notes often forgets that he is working. Notes [...] is. States sees routinely. Does not see water commissioner. Hyperlipidemia. Ms. Xiao reports doing well on [...] Level: 4 - Moderate documented in this encounterWy[facility]ot [facility]07-21-2022 Instructions* Patient Instructions* Evita Jimenez APRN.CNS - 11/27/2021 9:13 AM EDT Check to see if your insurance covers Tdap and shingles vaccine and what location to get the vaccine usually best covered at your local pharmacy where you get prescriptions filled documented in this encounterWyandot [facility]06-27-2022 History of Present illness Narrative* Neema Mills MA - 11/03/2021 1:11 PM EDT POPULATION HEALTH NAVIGATION OUTREACH Action/SAVANAHI Dr. Corbett, the following orders have elfego pended for you to review and file: Pended Orders ID Status Description Pended By When Reason [id number] Pended HGB A1C Neema Mills MA 11/03/21 1317 [id number] Pended SCHEDULE LAB TESTING Neema Mills MA 11/03/21 1317 Patient is on HCC list for below gaps and needs appt to address : E11.9 - DM (diabetes mellitus) (HCC) - [id number] Last Billed 01/08/2020
Appointment type needed: Annual [...] Message Sent to Practice: Yes Navigation Signature: Neema Mills MA November 03, 2021 1:11 PM documented in this encounterWy[facility]ot [facility]07-10-2017 History of Past illness Narrative* Problem Noted Date Resolved Date Serum calcium elevated 11/16/2016 8 Overview: Normal on 05/2017 labs documented as of this encounter (statuses as of 11/05/2021) [facility] of Past illness Narrative* Problem Noted Date Resolved Date Serum calcium elevated 11/16/2016 8 Overview: Normal on 05/2017 labs documented as of this encounter (statuses as of 11/27/2021) [address]10-2017 History of Past illness Narrative* Problem Noted Date Resolved Date Serum calcium elevated 11/16/2016 8 Overview: Normal on 05/2017 labs documented as of this encounter (statuses as of 12/02/2021) [address]10-2017 History of Past illness Narrative* Problem Noted Date Resolved Date Serum calcium elevated 11/16/2016 8 Overview: Normal on 05/2017 labs documented as of this encounter (statuses as of 12/04/2021) [address]10-2017 History of Past illness Narrative* Problem Noted Date Resolved Date Serum calcium elevated 11/16/2016 8 Overview: Normal on 05/2017 labs documented as of this encounter (statuses as of 01/09/2022) [address]10-2017 History of Past illness Narrative* Problem Noted Date Resolved Date Serum calcium elevated 11/16/2016 8 Overview: Normal on 05/2017 labs documented as of this encounter (statuses as of 01/28/2022) [address]10-2017 History of Past illness Narrative* Problem Noted Date Resolved Date Serum calcium elevated 11/16/2016 8 Overview: Normal on 05/2017 labs documented as of this encounter (statuses as of 01/29/2022) [address]10-2017 History of Past illness Narrative* Problem Noted Date Resolved Date Serum calcium elevated 11/16/2016 8 Overview: Normal on 05/2017 labs documented as of this encounter (statuses as of 01/29/2022) [address]2017 History of Past illness Narrative* Problem Noted Date Resolved Date Serum calcium elevated 11/16/2016 8 Overview: Normal on 05/2017 labs documented as of this encounter (statuses as of 02/27/2022) [address]2017 History of Past illness Narrative* Problem Noted Date Diagnosed Date Resolved Date Serum calcium elevated 11/16/201612/10 Overview: Normal on 05/2017 labs documented as of this encounter (statuses as of 06/19/2023) [address]10[address]2017 History of Past illness Narrative* Problem Noted Date Diagnosed Date Resolved Date Serum calcium elevated 11/16/201612/10 Overview: Normal on 05/2017 labs documented as of this encounter (statuses as of 07/12/2023) [address]2017 History of Past illness Narrative* Problem Noted Date Diagnosed Date Resolved Date Serum calcium elevated 11/16/201612/10 Overview: Normal on 05/2017 labs documented as of this encounter (statuses as of 07/17/2023) [address]10[address]2017 History of Past illness Narrative* Problem Noted Date Diagnosed Date Resolved Date Serum calcium elevated 11/16/201612/10 Overview: Normal on 05/2017 labs documented as of this encounter (statuses as of 07/20/2023) [address]2017 History of Past illness Narrative* Problem Noted Date Diagnosed Date Resolved Date Serum calcium elevated 11/16/201612/10 Overview: Normal on 05/2017 labs documented as of this encounter (statuses as of 07/21/2023) [address]10[address]2017 History of Past illness Narrative* Problem Noted Date Diagnosed Date Resolved Date Serum calcium elevated 11/16/201612/10 Overview: Normal on 05/2017 labs documented as of this encounter (statuses as of 07/21/2023) [address]2017 History of Past illness Narrative* Problem Noted Date Diagnosed Date Resolved Date Serum calcium elevated 11/16/201612/10 Overview: Normal on 05/2017 labs documented as of this encounter (statuses as of 07/27/2023) [facility] Narrative* Problem Noted Date Diagnosed Date Resolved Date Serum calcium elevated 11/16/201612/10 Overview: Normal on 05/2017 labs documented as of this encounter (statuses as of 08/16/2023) [facility] of [facility] illness Narrative* Problem Noted Date Diagnosed Date Resolved Date Serum calcium elevated 11/16/201612/10 Overview: Normal on 05/2017 labs documented as of this encounter (statuses as of 08/13/2023) [facility] HospitalChi complaint+Reason for visit Narrative* Chief Complaint SYNCOPAL EPISODE SYNCOPAL EPISODE Reason for Visit COVID COVID-19 Dehydration Diarrhea Syncope [facility] Work Phone: Consult note Author Shayna Mayberry [facility] June 22, 2023 10:01am Note Date/Time June 22, 2023 10:01am [facility] Medical Records Department [address] [place] [address] Counseling Note - Pharmacy 06/22/23 1001 MR#: [id number] Acct: [id number] Name: ALEXANDER XIAO Rep #:[id number] : 1940 82 From: Shayna Mayberry PCP: BECKY Nash Status:ADM ELAINE Y Location: [place] [address] Pharmacy [place] Med Reconciliation Pharmacy Service has performed discharge medication reconciliation for this patient. The patient's discharge medication list was reviewed for discrepancies and discrepancies were resolved. Medications at Discharge Home Medications levothyroxine 88 mcg tablet 88 mcg PO DAILY thyroid 06/25/18 simvastatin 40 mg tablet 40 mg PO QHS cholesterol 06/25/18 insulin glargine-yfgn 100 unit/mL (3 mL) subcutaneous pen 20 unit (0.2 mL) subcut QHS #0 mL 06/21/23 insulin lispro 100 unit/mL subcutaneous pen (Humalog KwikPen (U-100) Insulin) 7 unit (0.07 mL) subcut TIDAC #0 mL 06/21/23 risperidone 0.5 mg tablet 0.5 mg PO QHS #0 tabs 06/21/23 06/22/23 1001 <Electronically signed by Shayna Mayberry> Date _ Shayna Mayberry Cosigner Signature (if applicable): Date CC: ~ Signed [facility] Work Phone: Evaluation note* Diagnosis Type 2 diabetes mellitus without complication, without long-term current use of insulin (HCC)- Primary [facility] encounter [facility]* Diagnosis Acquired hypothyroidism- Primary [...] complication, without long-term current use of insulin ([facility]) Memory problem Memory loss Fungal nail infection Dermatophytosis of nail [facility]* Diagnosis Rash- Primary Rash and other nonspecific skin eruption Skin lesion Unspecified disorder of skin and subcutaneous tissue [facility]* Diagnosis Close exposure to COVID-19 virus- Primary [facility]* Diagnosis COVID-19 virus infection- Primary [facility]* Diagnosis Onset Date Resolution Status COVID acute COVID-19 acute Dehydration acute Diarrhea acute Syncope acute [facility] Work Phone: Evaluation note* Diagnosis COVID-19 virus infection- Primary Screening for diabetic retinopathy Screening for other eye conditions Encounter for immunization Need for other specified prophylactic vaccination against single bacterial disease Type 2 diabetes mellitus without complication, without long-term current use of insulin ([facility]) Hypercholesteremia Pure hypercholesterolemia Acquired hypothyroidism Unspecified hypothyroidism Syncope, unspecified syncope type Diarrhea, unspecified type Memory problem Memory loss [facility] Neck pain- Primary Cervicalgia [facility] Diagnosis Onset Date Resolution Status AMS (altered mental status) acute Diabetes acute Hypothyroidism acute [facility] Work Phone: Evaluation note* Diagnosis Moderate dementia with other behavioral disturbance, unspecified dementia type (HCC)- Primary Hospital discharge follow-up Other follow-up examination Type 2 diabetes mellitus without complication, without long-term current use of insulin (HCC) Hypercholesteremia Pure hypercholesterolemia Acquired hypothyroidism Unspecified hypothyroidism Nocturnal enuresis Encounter for therapeutic drug monitoring documented [facility]* Diagnosis Paronychia of finger of left hand- Primary Infection, skin Unspecified local infection of skin and subcutaneous tissue [facility] Diagnosis Onychomycosis- Primary Dermatophytosis of nail Type 2 diabetes mellitus without complication, without long-term current use of insulin (HCC) Pain in toe of left foot Pain in limb Pain in toe of right foot Pain in limb Venous insufficiency Unspecified venous (peripheral) insufficiency Xerosis cutis Other specified disease of sebaceous glands [facility]* Diagnosis Paronychia of finger of left hand- Primary [facility]* Diagnosis Paronychia of finger of left hand- Primary [facility]* Diagnosis Moderate dementia with other behavioral disturbance, unspecified dementia type (HCC) [facility]* Diagnosis Onychomycosis- Primary Dermatophytosis of nail Pain in toe of left foot Pain in limb Pain in toe of right foot Pain in limb Type 2 diabetes mellitus without complication, without long-term current use of insulin (HCC) [facility]* Diagnosis Acquired hypothyroidism Unspecified hypothyroidism [facility] encounter [facility]* Diagnosis Moderate dementia with other behavioral disturbance, unspecified dementia type (HCC) [facility]* Diagnosis Moderate dementia with other behavioral disturbance, unspecified dementia type (HCC)- Primary Type 2 diabetes mellitus without complication, without long-term current use of insulin (HCC) Acquired hypothyroidism Unspecified hypothyroidism Encounter for therapeutic drug monitoring [facility] Diagnosis Acquired hypothyroidism Unspecified hypothyroidism [facility] encounter [facility]* Diagnosis Type 2 diabetes mellitus without complication, without long-term current use of insulin (HCC) documented [facility] this encounter [facility]* Diagnosis Onychomycosis- Primary Dermatophytosis of nail Pain in toe of left foot Pain in limb Pain in toe of right foot Pain in limb Type 2 diabetes mellitus without complication, without long-term current use of insulin (HCC) [facility]* Diagnosis Acquired hypothyroidism Unspecified hypothyroidism documented [facility] this encounter [facility]* Diagnosis Moderate dementia with other behavioral disturbance, unspecified dementia type (HCC) documented [facility] this encounter [facility]* Diagnosis Paronychia of finger of left hand- Primary Moderate dementia with other behavioral disturbance, unspecified dementia type (HCC) Type 2 diabetes mellitus without complication, without long-term current use of insulin (HCC) documented in this encounter [facility]* Diagnosis Moderate dementia with other behavioral disturbance, unspecified dementia type (HCC)- Primary Driving safety issue Other specified personal history presenting hazards to health Type 2 diabetes mellitus without complication, without long-term current use of insulin (HCC) documented in this encounter [facility]* Diagnosis Onychomycosis- Primary Dermatophytosis of nail Pain in toe of left foot Pain in limb Pain in toe of right foot Pain in limb [facility]* Diagnosis Moderate dementia with other behavioral disturbance, unspecified dementia type (HCC) documented [facility] this encounter [facility]* Diagnosis Vitamin B12 deficiency- Primary Other B-complex deficiencies [facility]* Diagnosis Vitamin B 12 deficiency- Primary Other B-complex deficiencies [facility]* Diagnosis Vitamin B 12 deficiency- Primary Other B-complex deficiencies [facility]* Diagnosis Vitamin B 12 deficiency- Primary Other B-complex deficiencies [facility]* Diagnosis Vitamin B 12 deficiency- Primary Other B-complex deficiencies [facility] this encounter [facility]* Diagnosis Skin tear of lower leg without complication, initial encounter- Primary documented [facility]* Diagnosis Medicare annual wellness visit, subsequent- Primary Routine general medical examination at a health care facility Moderate dementia with other behavioral disturbance, unspecified dementia type (HCC) Vitamin B 12 deficiency Other B-complex deficiencies Type 2 diabetes mellitus without complication, without long-term current use of insulin (HCC) Acquired hypothyroidism Unspecified hypothyroidism Vitamin D deficiency Unspecified vitamin D deficiency Hypercholesteremia Pure hypercholesterolemia Encounter for therapeutic drug monitoring Skin tear of lower leg without complication, right, subsequent encounter documented [facility] Diagnosis Vitamin D deficiency- Primary Unspecified vitamin D deficiency [facility] this encounter [facility]* Diagnosis Moderate dementia with other behavioral disturbance, unspecified dementia type (HCC) documented [facility] this encounter [facility]* Diagnosis Type 2 diabetes mellitus without complication, without long-term current use of insulin (HCC)- Primary documented in this encounter [facility] for referral (narrative)* Diagnostic Procedure Only (Routine) - Pending Review Specialty Diagnoses / Procedures Referred By Contac t Referred To Contact XR IMAGING Diagnoses Neck pain Procedures XR CERV OTHER 4V AP/LAT/OBL RADEX SPINE CERVICAL 4 OR 5 VIEWS Devin Carrasquillo MD [address] [place] [address] [place] [id number] Referral ID Status Reason Start Date Expiration Date Visits Requested Visits Authorized [id number] Pending Review Auto-Generat ed Referral 06/19/2023 07/18/2024 1 1 [facility] Advance Directives No Advanced Directives Records FoundDocuments on File Type Date Recorded 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 Advance Directive(s) 11/28/2014 4:19 PM Documents on File Type Date Recorded 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 Advance Directive(s) 11/28/2014 4:19 PM Advance Directive Response Recorded Date/ Time Name of Medical Power of Editor Graham velázquez February 03, 2022 12:15am Living Will Yes February 03, 2022 12:15am Power of Editor Yes January 12:15am Advance Directive Response Recorded Date/ Time Living Will Yes June 19 8:27pm Power of Editor No June 19, 2023 8:27pm Reason for Referral Specialty Diagnoses / Procedures Referred By Contac t Referred To Contact Podiatry Diagnoses Type 2 diabetes mellitus without complication, without long-term current use of insulin ([facility]) Fungal nail infection Procedures CONSULT TO PODIATRY OFFICE/OUTPATIENT [facility] ([facility]) 60-74 MINUTES Evita Jimenez, TUG MASTER.NEONATAL INTENSIVE CARE UNIT NURSE [address] [place] [address] Referral ID Status Reason Start Date Expiration Date Visits Requested Visits Authorized [id number] Authorized PCP Requested Referral 11/27/2021 11/27/2022 1 1 Specialty Diagnoses / Procedures Referred By Contac t Referred To Contact Ophthalmology Diagnoses Type 2 diabetes mellitus without complication, without long-term current use of insulin ([facility]) Procedures CONSULT TO OPHTHALMOLOGY OFFICE/OUTPATIENT [facility] ([facility]) 60-74 MINUTES Evita Jimenez, TUG MASTER.NEONATAL INTENSIVE CARE UNIT NURSE [address] [place] [address] Referral ID Status Reason Start Date Expiration Date Visits Requested Visits Authorized [id number] Authorized PCP Requested Referral 11/27/2021 11/27/2022 1 1 Specialty Diagnoses / Procedures Referred By Contac t Referred To Contact Gerontology Diagnoses Memory problem Procedures CONSULT TO GERIATRICS OFFICE/OUTPATIENT [facility] ([facility]) 60-74 MINUTES Evita Jimenez, TUG MASTER.NEONATAL INTENSIVE CARE UNIT NURSE [address] [place] [address] Referral ID Status Reason Start Date Expiration Date Visits Requested Visits Authorized [id number] Authorized PCP Requested Referral 11/27/2021 11/27/2022 1 1 Specialty Diagnoses / Procedures Referred By Contac t Referred To Contact Ophthalmology Diagnoses Screening for diabetic retinopathy Procedures CONSULT TO OPHTHALMOLOGY OFFICE/OUTPATIENT [facility]) 60-74 MINUTES JimenezEvita mckay, TUG MASTER.NEONATAL INTENSIVE CARE UNIT NURSE [address] [place] [address] Referral ID Status Reason Start Date Expiration Date Visits Requested Visits Authorized [id number] Authorized PCP Requested Referral 02/27/2023 1 1 Specialty Diagnoses / Procedures Referred By Contac t Referred To Contact Podiatry Diagnoses Type 2 diabetes mellitus without complication, without long-term current use of insulin ([facility]) Procedures CONSULT TO PODIATRY OFFICE/OUTPATIENT [facility] MDM 60 MINUTES Christina Edmonds APRN.KILN WORKER [address] [place] [address] Referral ID Status Reason Start Date Expiration Date Visits Requested Visits Authorized [id number] Authorized PCP Requested Referral 07/12/2023 07/11/2024 1 1 Specialty Diagnoses / Procedures Referred By Lopez bruner Referred To Contact Gerontology Diagnoses Moderate dementia with other behavioral disturbance, unspecified dementia type (HCC) Procedures CONSULT TO GERIATRICS OFFICE/OUTPATIENT [facility] MDM 60 MINUTES Christina Edmonds APRN.KILN WORKER [address] [place] [address] Referral ID Status Reason Start Date Expiration Date Visits Requested Visits Authorized [id number] Authorized PCP Requested Referral 03/14/2024 03/14/2025 1 1 Health Concerns Infection Onset Date Last Indicated Resolved Time COVID-19 Rule-Out 01/28/2022 01/28/2022 Infection Onset Date Last Indicated Resolved Time COVID-19 Rule-Out 01/28/2022 01/28/2022 01/29/2022 5:56 AM EDT COVID-19 Confirmed 01/28/2022 01/28/2022 Infection Onset Date Last Indicated Resolved Time COVID-19 Confirmed 01/28/2022 01/28/2022 Chief Complaint and Reason for Visit Chief Complaint AMS AMS AMS Reason for Visit AMS (altered mental status) Diabetes Hypothyroidism Summary Purpose Family History No Family History Records FoundNo Family History Records Found Additional Source Comments Source Comments (unrecognize d section and content) In the event this informatio n is protected by the Federal Confidentiality of Alcohol and Drug Abuse Patient Records regulations: The Federal rules restrict any use of the information to criminally investigate or prosecute any alcohol or drug abuse patient.[facility] the event this information is protected by the Federal Confidentiality of Alcohol and Drug Abuse Patient Records regulations: The Federal rules restrict any use of the information to criminally investigate or prosecute any alcohol or drug abuse patient.[facility] HospitalIn the event this information is protected by the Federal Confidentiality of Alcohol and Drug Abuse Patient Records regulations: The Federal rules restrict any use of the information to criminally investigate or prosecute any alcohol or drug abuse patient.[facility] HospitalIn the event this information is protected by the Federal Confidentiality of Alcohol and Drug Abuse Patient Records regulations: The Federal rules restrict any use of the information to criminally investigate or prosecute any alcohol or drug abuse patient.[facility] HospitalIn the event this information is protected by the Federal Confidentiality of Alcohol and Drug Abuse Patient Records regulations: The Federal rules restrict any use of the information to criminally investigate or prosecute any alcohol or drug abuse patient.[facility] HospitalIn the event this information is protected by the Federal Confidentiality of Alcohol and Drug Abuse Patient Records regulations: The Federal rules restrict any use of the information to criminally investigate or prosecute any alcohol or drug abuse patient.[facility] HospitalIn the event this information is protected by the Federal Confidentiality of Alcohol and Drug Abuse Patient Records regulations: The Federal rules restrict any use of the information to criminally investigate or prosecute any alcohol or drug abuse patient.[facility] HospitalIn the event this information is protected by the Federal Confidentiality of Alcohol and Drug Abuse Patient Records regulations: The Federal rules restrict any use of the information to criminally investigate or prosecute any alcohol or drug abuse patient.[facility] HospitalIn the event this information is protected by the Federal Confidentiality of Alcohol and Drug Abuse Patient Records regulations: The Federal rules restrict any use of the information to criminally investigate or prosecute any alcohol or drug abuse patient.[facility] HospitalIn the event this information is protected by the Federal Confidentiality of Alcohol and Drug Abuse Patient Records regulations: The Federal rules restrict any use of the information to criminally investigate or prosecute any alcohol or drug abuse patient.[facility] HospitalIn the event this information is protected by the Federal Confidentiality of Alcohol and Drug Abuse Patient Records regulations: The Federal rules restrict any use of the information to criminally investigate or prosecute any alcohol or drug abuse patient.[facility] HospitalIn the event this information is protected by the Federal Confidentiality of Alcohol and Drug Abuse Patient Records regulations: The Federal rules restrict any use of the information to criminally investigate or prosecute any alcohol or drug abuse patient.[facility] HospitalIn the event this information is protected by the Federal Confidentiality of Alcohol and Drug Abuse Patient Records regulations: The Federal rules restrict any use of the information to criminally investigate or prosecute any alcohol or drug abuse patient.[facility] HospitalIn the event this information is protected by the Federal Confidentiality of Alcohol and Drug Abuse Patient Records regulations: The Federal rules restrict any use of the information to criminally investigate or prosecute any alcohol or drug abuse patient.[facility] HospitalIn the event this information is protected by the Federal Confidentiality of Alcohol and Drug Abuse Patient Records regulations: The Federal rules restrict any use of the information to criminally investigate or prosecute any alcohol or drug abuse patient.[facility] HospitalIn the event this information is protected by the Federal Confidentiality of Alcohol and Drug Abuse Patient Records regulations: The Federal rules restrict any use of the information to criminally investigate or prosecute any alcohol or drug abuse patient.[facility] HospitalIn the event this information is protected by the Federal Confidentiality of Alcohol and Drug Abuse Patient Records regulations: The Federal rules restrict any use of the information to criminally investigate or prosecute any alcohol or drug abuse patient.[facility] HospitalIn the event this information is protected by the Federal Confidentiality of Alcohol and Drug Abuse Patient Records regulations: The Federal rules restrict any use of the information to criminally investigate or prosecute any alcohol or drug abuse patient.[facility] HospitalIn the event this information is protected by the Federal Confidentiality of Alcohol and Drug Abuse Patient Records regulations: The Federal rules restrict any use of the information to criminally investigate or prosecute any alcohol or drug abuse patient.[facility] HospitalIn the event this information is protected by the Federal Confidentiality of Alcohol and Drug Abuse Patient Records regulations: The Federal rules restrict any use of the information to criminally investigate or prosecute any alcohol or drug abuse patient.[facility] HospitalIn the event this information is protected by the Federal Confidentiality of Alcohol and Drug Abuse Patient Records regulations: The Federal rules restrict any use of the information to criminally investigate or prosecute any alcohol or drug abuse patient.[facility] HospitalIn the event this information is protected by the Federal Confidentiality of Alcohol and Drug Abuse Patient Records regulations: The Federal rules restrict any use of the information to criminally investigate or prosecute any alcohol or drug abuse patient.[facility] HospitalIn the event this information is protected by the Federal Confidentiality of Alcohol and Drug Abuse Patient Records regulations: The Federal rules restrict any use of the information to criminally investigate or prosecute any alcohol or drug abuse patient.[facility] HospitalIn the event this information is protected by the Federal Confidentiality of Alcohol and Drug Abuse Patient Records regulations: The Federal rules restrict any use of the information to criminally investigate or prosecute any alcohol or drug abuse patient.[facility] HospitalIn the event this information is protected by the Federal Confidentiality of Alcohol and Drug Abuse Patient Records regulations: The Federal rules restrict any use of the information to criminally investigate or prosecute any alcohol or drug abuse patient.[facility] HospitalIn the event this information is protected by the Federal Confidentiality of Alcohol and Drug Abuse Patient Records regulations: The Federal rules restrict any use of the information to criminally investigate or prosecute any alcohol or drug abuse patient.[facility] HospitalIn the event this information is protected by the Federal Confidentiality of Alcohol and Drug Abuse Patient Records regulations: The Federal rules restrict any use of the information to criminally investigate or prosecute any alcohol or drug abuse patient.[facility] HospitalIn the event this information is protected by the Federal Confidentiality of Alcohol and Drug Abuse Patient Records regulations: The Federal rules restrict any use of the information to criminally investigate or prosecute any alcohol or drug abuse patient.[facility]In the event this information is protected by the Federal Confidentiality of Alcohol and Drug Abuse Patient Records regulations: The Federal rules restrict any use of the information to criminally investigate or prosecute any alcohol or drug abuse patient.[facility] HospitalIn the event this information is protected by the Federal Confidentiality of Alcohol and Drug Abuse Patient Records regulations: The Federal rules restrict any use of the information to criminally investigate or prosecute any alcohol or drug abuse patient.[facility] HospitalIn the event this information is protected by the Federal Confidentiality of Alcohol and Drug Abuse Patient Records regulations: The Federal rules restrict any use of the information to criminally investigate or prosecute any alcohol or drug abuse patient.[facility] HospitalIn the event this information is protected by the Federal Confidentiality of Alcohol and Drug Abuse Patient Records regulations: The Federal rules restrict any use of the information to criminally investigate or prosecute any alcohol or drug abuse patient.[facility] HospitalIn the event this information is protected by the Federal Confidentiality of Alcohol and Drug Abuse Patient Records regulations: The Federal rules restrict any use of the information to criminally investigate or prosecute any alcohol or drug abuse patient.[facility] HospitalIn the event this information is protected by the Federal Confidentiality of Alcohol and Drug Abuse Patient Records regulations: The Federal rules restrict any use of the information to criminally investigate or prosecute any alcohol or drug abuse patient.[facility] HospitalIn the event this information is protected by the Federal Confidentiality of Alcohol and Drug Abuse Patient Records regulations: The Federal rules restrict any use of the information to criminally investigate or prosecute any alcohol or drug abuse patient.[facility] HospitalIn the event this information is protected by the Federal Confidentiality of Alcohol and Drug Abuse Patient Records regulations: The Federal rules restrict any use of the information to criminally investigate or prosecute any alcohol or drug abuse patient.[facility] HospitalIn the event this information is protected by the Federal Confidentiality of Alcohol and Drug Abuse Patient Records regulations: The Federal rules restrict any use of the information to criminally investigate or prosecute any alcohol or drug abuse patient.[facility] HospitalIn the event this information is protected by the Federal Confidentiality of Alcohol and Drug Abuse Patient Records regulations: The Federal rules restrict any use of the information to criminally investigate or prosecute any alcohol or drug abuse patient.[facility] HospitalIn the event this information is protected by the Federal Confidentiality of Alcohol and Drug Abuse Patient Records regulations: The Federal rules restrict any use of the information to criminally investigate or prosecute any alcohol or drug abuse patient.[facility] HospitalIn the event this information is protected by the Federal Confidentiality of Alcohol and Drug Abuse Patient Records regulations: The Federal rules restrict any use of the information to criminally investigate or prosecute any alcohol or drug abuse patient.[facility] HospitalIn the event this information is protected by the Federal Confidentiality of Alcohol and Drug Abuse Patient Records regulations: The Federal rules restrict any use of the information to criminally investigate or prosecute any alcohol or drug abuse patient.[facility] HospitalIn the event this information is protected by the Federal Confidentiality of Alcohol and Drug Abuse Patient Records regulations: The Federal rules restrict any use of the information to criminally investigate or prosecute any alcohol or drug abuse patient.[facility] HospitalIn the event this information is protected by the Federal Confidentiality of Alcohol and Drug Abuse Patient Records regulations: The Federal rules restrict any use of the information to criminally investigate or prosecute any alcohol or drug abuse patient.[facility] HospitalIn the event this information is protected by the Federal Confidentiality of Alcohol and Drug Abuse Patient Records regulations: The Federal rules restrict any use of the information to criminally investigate or prosecute any alcohol or drug abuse patient.[facility] HospitalIn the event this information is protected by the Federal Confidentiality of Alcohol and Drug Abuse Patient Records regulations: The Federal rules restrict any use of the information to criminally investigate or prosecute any alcohol or drug abuse patient.[facility] HospitalIn the event this information is protected by the Federal Confidentiality of Alcohol and Drug Abuse Patient Records regulations: The Federal rules restrict any use of the information to criminally investigate or prosecute any alcohol or drug abuse patient.[facility] HospitalIn the event this information is protected by the Federal Confidentiality of Alcohol and Drug Abuse Patient Records regulations: The Federal rules restrict any use of the information to criminally investigate or prosecute any alcohol or drug abuse patient.[facility] HospitalIn the event this information is protected by the Federal Confidentiality of Alcohol and Drug Abuse Patient Records regulations: The Federal rules restrict any use of the information to criminally investigate or prosecute any alcohol or drug abuse patient.[facility] HospitalIn the event this information is protected by the Federal Confidentiality of Alcohol and Drug Abuse Patient Records regulations: The Federal rules restrict any use of the information to criminally investigate or prosecute any alcohol or drug abuse patient.[facility] HospitalIn the event this information is protected by the Federal Confidentiality of Alcohol and Drug Abuse Patient Records regulations: The Federal rules restrict any use of the information to criminally investigate or prosecute any alcohol or drug abuse patient.[facility] HospitalIn the event this information is protected by the Federal Confidentiality of Alcohol and Drug Abuse Patient Records regulations: The Federal rules restrict any use of the information to criminally investigate or prosecute any alcohol or drug abuse patient.[facility] HospitalIn the event this information is protected by the Federal Confidentiality of Alcohol and Drug Abuse Patient Records regulations: The Federal rules restrict any use of the information to criminally investigate or prosecute any alcohol or drug abuse patient.[facility] Reason for Visit (unrecogniz ed section and content) Reason Onset Date Comments Population Health Navigation Outreach 11/03/2021 HCC Reason Comments Physical Reason Comments Results, Lab Reason Comments Mass (LT) hand lump, x1 m th, denied pain, rash upper arm. Reason Comments Covid19 Concern Asymptomatic, possib le exposure x1 week Reason Comments Results COVID+ Reason Comments Covid Follow Up No Reason Comments Hospital F/U Reason Comments Pain Neck pain, fell a fe w months ago still having pain Reason Comments Finger Pain left little finger x last night, swollen finger and blistery looking, right leg redness and heel cracked x 2 days Reason Comments New Patient Diabetic Foot Care Specialty Diagnoses / Procedures Referred By Contdez t Referred To Contact Podiatry / PODIATRY Diagnoses Type 2 diabetes mellitus without complication, without long-term current use of insulin (HCC) Procedures CONSULT TO PODIATRY OFFICE/OUTPATIENT NEW HIGH MDM 60 MINUTES Christina Edmonds APRN.KILN WORKER [address] [place] [address] [facility] [address] [place] [address] Referral ID Status Reason Start Date Expiration Date V isits Requested Visits Authorized [id number] Closed PCP Requested Referral 07/12/2023 07/11/2024 1 1 Reason Comments express care follow up Reason Comments Follow Up Reason Comments Refill Request Reason Comments Medication concern Reason Comments Established Patient Follow Up Diabetic Foot Care Reason Onset Date Comments Refill Request 10/21/2023 Reason Onset Date Comments Refill Request 11/04/2023 Reason Onset Date Comments Refill Request 11/08/2023 Reason Comments F/U 3 Month Reason Onset Date Comments Refill Request 12/09/2023 Reason Onset Date Comments Refill Request 02/07/2024 Reason Onset Date Comments Refill Request 02/10/2024 Please read Rx n otes Reason Comments Medication Problem Reason Comments Follow Up 4 weeks Reason Comments 4 month follow up Reason Comments Consult Specialty Diagnoses / Procedures Referred By Lopez t Referred To Contact Gerontology Diagnoses Moderate dementia with other behavioral disturbance, unspecified dementia type (HCC) Procedures CONSULT TO GERIATRICS OFFICE/OUTPATIENT [facility] 60 MINUTES Christina Edmonds APRN.KILN WORKER [address] [place] [address] Referral ID Status Reason Start Date Expiration Date V isits Requested Visits Authorized [id number] Closed PCP Requested Referral 03/14/2024 03/14/2025 1 1 Reason Comments Results Reason Comments Orders Reason Comments B-12 Injection Reason Onset Date Comments Refill Request 05/15/2024 Reason Comments scrape on lower right leg X 1.5 hours Reason Onset Date Comments Erroneous encounter-disregard 07/24/2024 Reason Comments Patient Update process began to get her admitted to [facility] Reason Comments Medicare Wellness Exam only concern is [place] worsening getting lost having trouble finding home and then looking for Robert who is currently in rehab Reason Comments Patient Update Reason Comments Patient Question Reason Onset Date Comments Refill Request 08/28/2024 Reason Onset Date Comments Population Health Navigation Outreach 10/10/2024 [facility] Reason Onset Date Comments Population Health Navigation Outreach 11/13/2024 [facility] Care Teams (unrecognized sec tion and content) Senior Test Engineer Relationship Specialty [place] [address] [place] [address] [phone] PCP - General Internal Medicine 10/30/15 Senior Test Engineer Relationship Specialty Start Date End Date Jose Corbett MD [address] [place] [address] [phone] PCP - General Internal Medicine 10/30/15 Senior Test Engineer Relationship Specialty Start Date End Date Jose Corbett MD [address] [place] [address] [place] [address] PCP - General Internal Medicine 10/30/15 Senior Test Engineer Relationship Specialty Start Date End Date Jose Corbett MD [address] [place] [address] PCP - General Internal Medicine 10/30/15 Senior Test Engineer Relationship Specialty Start Date End Date Evita Jimenez, TUG MASTER.NEONATAL INTENSIVE CARE UNIT NURSE [address] [place] [address] PCP - General Internal Medicine 01/09/22 Senior Test Engineer Relationship Specialty Start Date End Date Evita Jimenez, TUG MASTER.NEONATAL INTENSIVE CARE UNIT NURSE [address] [place] [address] PCP - General Internal Medicine 01/09/22 Senior Test Engineer Relationship Specialty Start Date End Date Jose Corbett MD [address] [place] [address] PCP - General Internal Medicine 01/29/22 Senior Test Engineer Relationship Specialty Start Date End Date Jose Corbett MD [address] [place] [address] PCP - General Internal Medicine 01/29/22 Senior Test Engineer Relationship Specialty Start Date End Date Jose Corbett MD [address] [place] [address] PCP - General Internal Medicine 01/29/22 Team Status: Active Member Role Status Dates Dr. Jose Corbett MD Family Provider Active Evita Jimenez ORDER PACKER OR PACKAGER, ORDER PACKER OR PACKAGER-C Primary Care Provider Active Team Status: Active Member Role Status Dates Dr. Artur Gallardo DO Emergency Provider Active Evita Jimenez ORDER PACKER OR PACKAGER, ORDER PACKER OR PACKAGER-C Primary Care Provider Active Dr. Viri Mcclelland MD Admit Provider, Other Provider A ctive Dr. Teddy Turpin DO Attending Provider, Other Provider Active Team Status: Inactive Member Role Status Dates Dr. Artur Sami , DO Emergency Provider Active Evita Jimenez ORDER PACKER OR PACKAGER, ORDER PACKER OR PACKAGER-C Primary Care Provider Active Dr. Viri Mcclelland MD Admit Provider, Other Provider A ctive Dr. Teddy Turpin , Attending Provider Active Senior Test Engineer Relationship Specialty Start Date End Date Jose Corbett MD [address] [facility] [address] PCP - General Internal Medicine 01/29/22 Senior Test Engineer Relationship Specialty Start Date End Date Jose Corbett MD [address] [facility] [place] [address] PCP - General Internal Medicine 01/29/22 Senior Test Engineer Relationship Specialty Start Date End Date Jose Corbett MD [address] [facility] [place] [address] PCP - General Internal Medicine 01/29/22 Senior Test Engineer Relationship Specialty Start Date End Date Jose Corbett MD [address] [facility] [place] [address] PCP - General Internal Medicine 01/29/22 Senior Test Engineer Relationship Specialty Start Date End Date Jose Corbett MD [address] [facility] [place] [address] PCP - General Internal Medicine 01/29/22 Senior Test Engineer Relationship Specialty Start Date End Date Jose Corbett MD [address] [facility] [place] [address] PCP - General Internal Medicine 01/29/22 Senior Test Engineer Relationship Specialty Start Date End Date Jose Corbett MD [address] [facility] [place] [address] PCP - General Internal Medicine 01/29/22 08/09/23 Christina Edmonds APRN.KILN WORKER [address] [place] [id number] PCP - General Internal Medicine 08/10/23 Senior Test Engineer Relationship Specialty Start Date End Date Christina Edmonds APRN.KILN WORKER [address] [place] [id number] PCP - General Internal Medicine 08/10/23 Senior Test Engineer Relationship Specialty Start Date End Date Christina Edmonds APRN.KILN WORKER [address] [place] [phone] PCP - General Internal Medicine 08/10/23 Senior Test Engineer Relationship Specialty Start Date End Date Christina Edmonds APRN.KILN WORKER [address] [place] [id number] PCP - General Internal Medicine 08/10/23 Senior Test Engineer Relationship Specialty Start Date End Date Christina Edmonds APRN.KILN WORKER [address] [place] [address] PCP - General Internal Medicine 08/10/23 Senior Test Engineer Relationship Specialty Start Date End Date Christina Edmonds APRN.KILN WORKER [address] [place] [address] 19[address] PCP - General Internal Medicine 08/10/23 Senior Test Engineer Relationship Specialty Start Date End Date Christina Edmonds APRN.KILN WORKER [address] [place] [address] 90[address] PCP - General Internal Medicine 08/10/23 Senior Test Engineer Relationship Specialty Start Date End Date Christina Edmonds APRN.KILN WORKER [address] [place] [address] PCP - General Internal Medicine 08/10/23 Senior Test Engineer Relationship Specialty Start Date End Date Christina Edmonds APRN.KILN WORKER [address] [place] [address] PCP - General Internal Medicine 08/10/23 Senior Test Engineer Relationship Specialty Start Date End Date Christina Edmonds APRN.KILN WORKER [address] [place] [address] [phone] PCP - General Internal Medicine 08/10/23 Senior Test Engineer Relationship Specialty Start Date End Date Christina Edmonds APRN.KILN WORKER [address] [place] [phone] PCP - General Internal Medicine 08/10/23 Senior Test Engineer Relationship Specialty Start Date End Date Christina Edmonds APRN.KILN WORKER [address] [place] [address] [id number] PCP - General Internal Medicine 08/10/23 Senior Test Engineer Relationship Specialty Start Date End Date Christina Edmonds APRN.KILN WORKER [address] [place] [phone] PCP - General Internal Medicine 08/10/23 Senior Test Engineer Relationship Specialty Start Date End Date Christina Edmonds TUG MASTER.KILN WORKER [address] [place] [phone] PCP - General Internal Medicine 08/10/23 Senior Test Engineer Relationship Specialty Start Date End Date Christina Edmonds APRN.KILN WORKER [address] [place] [address] 19303 PCP - General Internal Medicine 08/10/23 Senior Test Engineer Relationship Specialty Start Date End Date Christina Edmonds APRN.KILN WORKER [address] [place] [address] PCP - General Internal Medicine 08/10/23 Senior Test Engineer Relationship Specialty Start Date End Date Christina Edmonds TUG MASTER.KILN WORKER [address] [place] [address] PCP - General Internal Medicine 08/10/23 Senior Test Engineer Relationship Specialty Start Date End Date Christina Edmonds TUG MASTER.KILN WORKER [address] [place] [address] PCP - General Internal Medicine 08/10/23 Senior Test Engineer Relationship Specialty Start Date End Date Christina Edmonds TUG MASTER.KILN WORKER [address] [place] [address] PCP - General Internal Medicine 08/10/23 Senior Test Engineer Relationship Specialty Start Date End Date Christina Edmonds TUG MASTER.KILN WORKER [address] [place] [address] PCP - General Internal Medicine 08/10/23 Senior Test Engineer Relationship Specialty Start Date End Date Christina Edmonds TUG MASTER.KILN WORKER [address] [place] [address] PCP - General Internal Medicine 08/10/23 Senior Test Engineer Relationship Specialty Start Date End Date Christina Edmonds TUG MASTER.KILN WORKER [address] [place] [address] PCP - General Internal Medicine 08/10/23 Senior Test Engineer Relationship Specialty Start Date End Date Christina Edmonds TUG MASTER.KILN WORKER [address] [place] [address] PCP - General Internal Medicine 08/10/23 Senior Test Engineer Relationship Specialty Start Date End Date Christina Edmonds APRN.CNP [address] [place] [address] PCP - General Internal Medicine 08/10/23 INFORMATION SOURCE (unrecogn ized section and content) DATE CREATED AUTHOR 10/20/2024 [facility] DATE CREATED AUTHOR AUTHOR'S ALAINAIZ ATION 11/17/2024 [facility] FOR RECORDS PERTAINING TO PATIENTS WHO ARE [...] BE BASED ON THE PRIMARY CLINICAL RECORDS. [employer] [facility]. provides no warranty or guarantee of the accuracy or completeness of information in this document.
[2024-12-12 09:00] LABS: Hematocrit 40.5 % (37-47); Hemoglobin 13.4 g/dL (12.0-15.0); Mean Corp Hgb Conc 33.1 g/dL (32-36); Mean Corpuscular Volume 90.4 fL (81-99); Mean Platelet Vol. 9.9 fl (6.2-12.0); Platelet Count 224 K/mm3 (150-450); RBC Distribution Width CV 14.5 % (11.6-14.6); RBC Distribution Width SD 47.8 fl (35.1-43.9); Red Blood Count 4.48 M/mm3 (4.2-5.4); White Blood Count 6.2 K/mm3 (4.4-11.0)
[2024-12-12 09:19] LABS: AST(SGOT) 14 U/L (<=31); Alanine Aminotransfer ALT/SGPT 9 U/L (<=34); Albumin, Serum 3.9 g/dL (3.4-4.8); Alkaline Phosphatase 49 U/L (35-104); Bilirubin, Direct 0.22 mg/dL (0.00-0.30); Globulin 2.4 g/dL (2.2-4.2)
[2024-12-12 09:54] LABS: Valproic Acid (Depakene) Level 55 ug/mL (50-100)
== END ==
LOC: OLS.SW 04:00
PROVIDERS: PCP Internal Medicine; Referring Provider Internal Medicine; Visit Provider Internal Medicine
DX: E55.9 Vitamin D deficiency, unspecified (principal); E78.5 Hyperlipidemia, unspecified
CPT/HCPCS: 36415; 80076; 80164; 85027

== ENCOUNTER → 2025-03-13 | Outpatient (REF) | payer MEDICARE, SELFPAY ==
--- OUTSIDE RECORDS SUMMARY | 2025-03-13 04:31 | XMS RPT_ITS | CCD ---
Author Organization [facility] Care Team Providers Care Assistant Film Editor Name Role Phone Jose Corbett MD Primary Care Provider Tony HOLISTIC NUTRITIONIST.A P MANAGER, Evita Primary Care Provider Jose Corbett MD Primary Care Provider Dr. Jose Corbett Primary Care Provider Dr. Aris Herrera Emergency Provider Dr. Sean Ivy Admit Provider Dr. Sean Ivy Attending Provider Dr. Sean Ivy Other Provider Jose Corbett MD Primary Care Provider Dr. Artur Gallardo Emergency Provider Tony TEAM PSYCHOLOGIST, TEAM PSYCHOLOGIST-C Evita Primary Care Provider Dr. Viri Mcclelland Admit Provider Dr. Viri Mcclelland Other Provider Dr. Teddy Turpin Attending Provider Dr. Teddy Turpin Other Provider Jose Corbett MD Primary Care Provider Grey HOLISTIC NUTRITIONIST.PLIER WORKER, Christina Primary Care Provider Grey HOLISTIC NUTRITIONIST.PLIER WORKER, Christina Primary Care Provider [phone] Grey HOLISTIC NUTRITIONIST.PLIER WORKER, Christina Primary Care Provider GREY, CHRISITNA Attending Unavailable GREY, CHRISTINA Primary Care Unavailable [...] Care Unavailable GREY, CHRISTINA Primary Care Unavailable Grey TEAM PSYCHOLOGIST, Christina Primary Care Unavailable Gudla OLS, Milady Attending Unavailable Grey TEAM PSYCHOLOGIST, Christina Primary Care Unavailable Gudla OLS, Milady Attending Unavailable Gudla OLS, Milady Referring Unavailable Grey TEAM PSYCHOLOGIST, Christina Primary Care Unavailable Gudla OLS, Milady Attending Unavailable Gudla OLS, Milady Referring Unavailable Medications Current Medications Medication Drug Class(es) Dates Sig (Normalized) Sig (Original) acetaminophen 325 mg oral tablet (2 sources) Start: 10-30-2015 End: 11-27-2021 take 2 tablets by mouth every six hours as needed acetaminophen (TYLENOL) 325 mg tablet Take 2 tablets by mouth every 6 hours as needed. 0 10/30/2015 11/27/2021 Discontinued Comment on above: Take 2 tablets by [facility] every 6 hours as needed. amoxicillin 875 [...] Comment on above: Take 1 tablet by [facility] two times a day for 10 days. [...] on above: Take 1 capsule by [facility] at bedtime as needed. donepezil hydrochloride [...] aily at bedtime. [facility] at [facility]. ibuprofen 200 mg oral [...] UNIT SC THREE TIMES DAILY BEFORE MEALS June 21, 2023 12:00am levothyroxine sodium 0.112 [...] per week) Take 1 tablet by renee once daily. melatonin 10 mg oral tablet [...] on above: Take 2 tablets by [facility] twice daily and take 1 tablet daily [...] on above: Take 1 tablet by renee two times a day for 7 days. [...] deficiency; Translations: [Vitamin D deficiency, unspecified] Onset: 08-01-2024 Chronic Open wounds of extremities (2 [...] behavioral disturbance, unspecified dementia type (HCC)] Onset: Viral infection (8 sources) Disease caused by [...] Facility CBC-Complete Blood Cnt No Di ffon 12-12-2024 Erythrocyte distribution width (RBC) [Ratio] 14.5 % Normal 11.6-14.6 [facility] Comment on above: Order Comment: 411.2 Performed By: #### L 100.0500, L500.3400, L501.8100 #### [facility] [address] [place], [address] Hematocrit (Bld) [Volume fraction] 40.5 % Normal 37-47 [facility] Comment on above: Order Comment: 411.2 Performed By: #### L 100.0500, L500.3400, L501.8100 #### [facility] [address] [place], [address] Hemoglobin (Bld) [Mass/Vol] 13.4 g/dL Normal 12.0-15.0 [facility] Comment on above: Order Comment: 411.2 Performed By: #### L 100.0500, L500.3400, L501.8100 #### [facility] [address] [place], [address] MCH (RBC) [Entitic mass] 29.9 pg Normal 27.0-32.0 [facility] Comment on above: Order Comment: 411.2 Performed By: #### L 100.0500, L500.3400, L501.8100 #### [facility] [address] [place], [address] MCHC (RBC) [Mass/Vol] 33.1 g/dL Normal 32-36 [facility] Comment on above: Order Comment: 411.2 Performed By: #### L 100.0500, L500.3400, L501.8100 #### [facility] [address] [place], [address] MCV (RBC) [Entitic vol] 90.4 fL Normal 81-99 [facility] Comment on above: Order Comment: 411.2 Performed By: #### L 100.0500, L500.3400, L501.8100 #### [facility] [address] [place], [address] Platelet mean volume (Bld) [Entitic vol] 9.9 fL Normal 6.2-12.0 [facility] Comment on above: Order Comment: 411.2 Performed By: #### L 100.0500, L500.3400, L501.8100 #### [facility] [address] [place], [address] Platelets (Bld) [#/Vol] 224 10*3/uL Normal 150-450 [facility] Comment on above: Order Comment: 411.2 Performed By: #### L 100.0500, L500.3400, L501.8100 #### [facility] [address] [place], [address] RBC (Bld) [#/Vol] 4.48 10*6/uL Normal 4.2-5.4 [facility] Comment on above: Order Comment: 411.2 Performed By: #### L 100.0500, L500.3400, L501.8100 #### [facility] [address] [place], [address] RDW SD 47.8 fl High 35.1-43.9 [facility] Comment on above: Order Comment: 411.2 Performed By: #### L 100.0500, L500.3400, L501.8100 #### [facility] [address] [place], [address] WBC (Bld) [#/Vol] 6.2 10*3/uL Normal 4.4-11.[address] [facility] Comment on above: Order Comment: 411.2 Performed By: #### L 100.0500, L500.3400, L501.8100 #### [facility] [address] [place], [address] Liver Profileon 12-12-2024 Albumin [Mass/Vol] 3.9 g/dL Normal 3.4-4.[address] [facility] Comment on above: Order Comment: 411.2 Performed By: #### L 100.0500, L500.3400, L501.8100 #### [facility] [address] [place], [address] ALK PHOS 49 U/L Normal 35-104 [facility] Comment on above: Order Comment: 411.2 Performed By: #### L 100.0500, L500.3400, L501.8100 #### [facility] [address] [place], [address] ALT [Catalytic activity/Vol] 9 U/L Normal <=34 [facility] Comment on above: Order Comment: 411.2 Performed By: #### L 100.0500, L500.3400, L501.8100 #### [facility] [address] [place], [address] AST [Catalytic activity/Vol] 14 U/L Normal <=31 [facility] Comment on above: Order Comment: 411.2 Performed By: #### L 100.0500, L500.3400, L501.8100 #### [facility] [address] [place], [address] Bilirubin [Mass/Vol] 0.52 mg/dL Normal 0.00-1.30 [facility] Comment on above: Order Comment: 411.2 Performed By: #### L 100.0500, L500.3400, L501.8100 #### [facility] [address] [place], [address] Bilirubin.direct [Mass/Vol] 0.22 mg/dL Normal 0.00-0.30 [facility] Comment on above: Order Comment: 411.2 Performed By: #### L 100.0500, L500.3400, L501.8100 #### [facility] [address] [place], [address] Globulin (S) [Mass/Vol] 2.4 g/dL Normal 2.2-4.2 [facility] Comment on above: Order Comment: 411.2 Performed By: #### L 100.0500, L500.3400, L501.8100 #### [facility] [address] [place], [address] T PROT 6.3 g/dL Normal 5.9-8.4 [facility] Comment on above: Order Comment: 411.2 Performed By: #### L 100.0500, L500.3400, L501.8100 #### [facility] [address] [place], [address] Valproic Acid (Depakene) Lev itzel 12-12-2024 VALPROIC ACID 55 ug/mL Normal 50-100 [facility] Comment on above: Order Comment: 411.2 Result Comment: Valp roic Acid concentrations >100 ug/mL are potentially toxic. Performed By: #### L 100.0500, L500.3400, L501.8100 #### [facility] [address] [place], [address] CBC-Complete Blood Cnt No Di ffon 10-09-2024 Erythrocyte distribution width (RBC) [Ratio] 12.9 % Normal 11.6-14.6 [facility] Comment on above: Performed By: #### L 501.9520, L500.4050, L501.8100, L500.4100, L100.0500, L501.9985 #### [facility] [address] [place], [address] Hematocrit (Bld) [Volume fraction] 38.5 % Normal 37-47 [facility] Comment on above: Performed By: #### L 501.9520, L500.4050, L501.8100, L500.4100, L100.0500, L501.9985 #### [facility] [address] [place], [address] Hemoglobin (Bld) [Mass/Vol] 12.8 g/dL Normal 12.0-15.0 [facility] Comment on above: Performed By: #### L 501.9520, L500.4050, L501.8100, L500.4100, L100.0500, L501.9985 #### [facility] [address] [place], [address] MCH (RBC) [Entitic mass] 30.2 pg Normal 27.0-32.0 [facility] Comment on above: Performed By: #### L 501.9520, L500.4050, L501.8100, L500.4100, L100.0500, L501.9985 #### [facility] [address] [place], [address] MCHC (RBC) [Mass/Vol] 33.2 g/dL Normal 32-36 [facility] Comment on above: Performed By: #### L 501.9520, L500.4050, L501.8100, L500.4100, L100.0500, L501.9985 #### [facility] [address] [place], [address] MCV (RBC) [Entitic vol] 90.8 fL Normal 81-99 [facility] Comment on above: Performed By: #### L 501.9520, L500.4050, L501.8100, L500.4100, L100.0500, L501.9985 #### [facility] [address] [place], [address] Platelet mean volume (Bld) [Entitic vol] 10.6 fL Normal 6.2-12.0 [facility] Comment on above: Performed By: #### L 501.9520, L500.4050, L501.8100, L500.4100, L100.0500, L501.9985 #### [facility] [address] [place], [address] Platelets (Bld) [#/Vol] 172 10*3/uL Normal 150-450 [facility] Comment on above: Performed By: #### L 501.9520, L500.4050, L501.8100, L500.4100, L100.0500, L501.9985 #### [facility] [address] [place], [address] RBC (Bld) [#/Vol] 4.24 10*6/uL Normal 4.2-5.4 [facility] Comment on above: Performed By: #### L 501.9520, L500.4050, L501.8100, L500.4100, L100.0500, L501.9985 #### [facility] [address] [place], [address] RDW SD 42.7 fl Normal 35.1-43.9 [facility] Comment on above: Performed By: #### L 501.9520, L500.4050, L501.8100, L500.4100, L100.0500, L501.9985 #### [facility] [address] [place], [address] WBC (Bld) [#/Vol] 6.3 10*3/uL Normal 4.4-11.[address] [facility] Comment on above: Performed By: #### L 501.9520, L500.4050, L501.8100, L500.4100, L100.0500, L501.9985 #### [facility] [address] [place], [address] Comprehensive Metabolic Prof [facility] 10-09-2024 Albumin [Mass/Vol] 3.9 g/dL Normal 3.4-4.[address] [facility] Comment on above: Performed By: #### L 500.3400, L501.8100, L100.0500 #### [facility] [address] [place], [address] Albumin/Globulin [Mass ratio] 1.8 {ratio} Normal 0.9-2.4 [facility] Comment on above: Performed By: #### L 500.3400, L501.8100, L100.0500 #### [facility] [address] [place], [address] ALK PHOS 52 U/L Normal 35-104 [facility] Comment on above: Performed By: #### L 500.3400, L501.8100, L100.0500 #### [facility] [address] [place], [address] ALT [Catalytic activity/Vol] 12 U/L Normal <=34 [facility] Comment on above: Performed By: #### L 500.3400, L501.8100, L100.0500 #### [facility] [address] [place], [address] AST [Catalytic activity/Vol] 20 U/L Normal <=31 [facility] Comment on above: Performed By: #### L 500.3400, L501.8100, L100.0500 #### [facility] [address] [place], [address] Bilirubin [Mass/Vol] 0.51 mg/dL Normal 0.00-1.30 [facility] Comment on above: Performed By: #### L 500.3400, L501.8100, L100.0500 #### [facility] [address] [place], [address] BUN/CRE 25.3 RATIO High 10-20 [facility] Comment on above: Performed By: #### L 500.3400, L501.8100, L100.0500 #### [facility] [address] [place], [address] Calcium [Mass/Vol] 9.6 mg/dL Normal 7.6-11.[address] [facility] Comment on above: Performed By: #### L 500.3400, L501.8100, L100.0500 #### [facility] [address] [place], [address] Chloride [Moles/Vol] 102 mmol/L Normal 98-108 [facility] Comment on above: Performed By: #### L 500.3400, L501.8100, L100.0500 #### [facility] [address] [place], [address] CO2 [Moles/Vol] 25.3 mmol/L Normal 21.0-32.0 [facility] Comment on above: Performed By: #### L 500.3400, L501.8100, L100.0500 #### [facility] [address] [place], [address] Creatinine [Mass/Vol] 0.58 mg/dL Low 0.70-1.20 [facility] Comment on above: Performed By: #### L 500.3400, L501.8100, L100.0500 #### [facility] [address] [place], [address] GAP 13 Normal 5-15 [facility] Comment on above: Performed By: #### L 500.3400, L501.8100, L100.0500 #### [facility] [address] [place], [address] GFR/1.73 sq M.predicted among non-blacks MDRD (S/P/Bld) [Vol rate/Area] 89 mL/min/{1.73_m2} Normal >60 [facility] Comment on above: Result Comment: mL/m in/1.73m2 CKD-EPI Creatinine Equation (2020) Performed By: #### L 500.3400, L501.8100, L100.0500 #### [facility] [address] [place], [address] Globulin (S) [Mass/Vol] 2.1 g/dL Low 2.2-4.2 [facility] Comment on above: Performed By: #### L 500.3400, L501.8100, L100.0500 #### [facility] [address] [place], [address] Glucose [Mass/Vol] 136 mg/dL High 70-[address] [facility] Comment on above: Performed By: #### L 500.3400, L501.8100, L100.0500 #### [facility] [address] [place], [address] Potassium [Moles/Vol] 3.7 mmol/L Normal 3.3-5.1 [facility] Comment on above: Result Comment: Hemo lysis present, Results??could be affected. ?? Performed By: #### L 500.3400, L501.8100, L100.0500 #### [facility] [address] [place], [address] Sodium [Moles/Vol] 141 mmol/L Normal 133-[address] [facility] Comment on above: Performed By: #### L 500.3400, L501.8100, L100.0500 #### [facility] [address] [place], [address] T PROT 6.0 g/dL Normal 5.9-8.4 [facility] Comment on above: Performed By: #### L 500.3400, L501.8100, L100.0500 #### [facility] [address] [place], [address] Urea nitrogen [Mass/Vol] 15 mg/dL Normal 4-19 [facility] Comment on above: Performed By: #### L 500.3400, L501.8100, L100.0500 #### [facility] [address] [place], [address] Hemoglobin A1con 10-09-2024 HbA1c (Bld) [Mass fraction] 9.4 % High <=5.6 [facility] Comment on above: Result Comment: Norm al < 5.7 % Prediabetic 5.7 - 6.4 % Diabetic >or= 6.5 % Please note range changes. Performed By: #### L 500.3400, L501.8100, L100.0500 #### [facility] [address] [place], [address] Lipid Profileon 10-09-2024 CHOL:HDL 2.51 Normal [facility] Comment on above: Performed By: #### L 500.3400, L501.8100, L100.0500 #### [facility] [address] [place], [address] Cholesterol [Mass/Vol] 132 mg/dL Normal <=200 [facility] Comment on above: Result Comment: Chol esterol level, Desirable <200 mg/dL Borderline high cholesterol 200-239 mg/dL High cholesterol >=240 mg/dL Recommendations of the NCEP Adult Treatment Panel for the following risk-cutoff thresholds for the [place] population. Performed By: #### L 500.3400, L501.8100, L100.0500 #### [facility] [address] [place], [address] Cholesterol in HDL [Mass/Vol] 53 mg/dL Normal [facility] Comment on above: Result Comment: Dora onal Cholesterol Education Program (NCEP) guidelines: <40 mg/dL: Low HDL-cholesterol (major risk factor for CHD) >= 60 mg/dL: High HDL-cholesterol (negative risk factor for CHD) HDL-cholesterol is affected by a number of factors, e.g. smoking, exercise, hormones, sex and age. Performed By: #### L 500.3400, L501.8100, L100.0500 #### [facility] [address] [place], [address] Cholesterol in LDL [Mass/Vol] 48 mg/dL Normal [facility] Comment on above: Result Comment: Bord yrwwyx=157-869 mg/dL Higher Uqgc=095 mg/dL or greater Performed By: #### L 500.3400, L501.8100, L100.0500 #### [facility] [address] [place], [address] Cholesterol in VLDL [Mass/Vol] 31 mg/dL Normal 5-40 [facility] Comment on above: Performed By: #### L 500.3400, L501.8100, L100.0500 #### [facility] [address] [place], [address] Triglyceride [Mass/Vol] 157 mg/dL Normal [facility] Comment on above: Result Comment: The drugs N-Acetylcysteine and Metamizole may falsely depress this assay. Normal range: <150 mg/dL Borderline High: 150-199 mg/dL High: 200-499 mg/dL Very High: >500 mg/dL Performed By: #### L 500.3400, L501.8100, L100.0500 #### [facility] [address] [place], [address] Thyroid Stim Hormone (TSH)on 10-09-2024 TSH 3.420 uIU/mL Normal 0.300-4.200 [facility] Comment on above: Performed By: #### L 500.3400, L501.8100, L100.0500 #### [facility] [address] [place], [address] Valproic Acid (Depakene) Lev itzel 10-09-2024 VALPROIC ACID 41 ug/mL Low 50-100 [facility] Comment on above: Result Comment: Valp roic Acid concentrations >100 ug/mL are potentially toxic. Performed By: #### L 500.3400, L501.8100, L100.0500 #### [facility] [address] [place], [address] CBC-Complete Blood Cnt No Di ffon 10-06-2024 Erythrocyte distribution width (RBC) [Ratio] 12.9 % Normal 11.6-14.6 [facility] Comment on above: Order Comment: 411-2 Performed By: #### L 500.3400, L501.8100, L100.0500 #### [facility] [address] [place], [address] Hematocrit (Bld) [Volume fraction] 36.0 % Low 37-47 [facility] Comment on above: Order Comment: 411-2 Performed By: #### L 500.3400, L501.8100, L100.0500 #### [facility] [address] [place], [address] Hemoglobin (Bld) [Mass/Vol] 12.2 g/dL Normal 12.0-15.0 [facility] Comment on above: Order Comment: 411-2 Performed By: #### L 500.3400, L501.8100, L100.0500 #### [facility] [address] [place], [address] MCH (RBC) [Entitic mass] 30.3 pg Normal 27.0-32.0 [facility] Comment on above: Order Comment: 411-2 Performed By: #### L 500.3400, L501.8100, L100.0500 #### [facility] [address] [place], [address] MCHC (RBC) [Mass/Vol] 33.9 g/dL Normal 32-36 [facility] Comment on above: Order Comment: 411-2 Performed By: #### L 500.3400, L501.8100, L100.0500 #### [facility] [address] [place], [address] MCV (RBC) [Entitic vol] 89.3 fL Normal 81-99 [facility] Comment on above: Order Comment: 411-2 Performed By: #### L 500.3400, L501.8100, L100.0500 #### [facility] [address] [place], [address] Platelet mean volume (Bld) [Entitic vol] 9.9 fL Normal 6.2-12.0 [facility] Comment on above: Order Comment: 411-2 Performed By: #### L 500.3400, L501.8100, L100.0500 #### [facility] [address] [place], [address] Platelets (Bld) [#/Vol] 182 10*3/uL Normal 150-450 [facility] Comment on above: Order Comment: 411-2 Performed By: #### L 500.3400, L501.8100, L100.0500 #### [facility] [address] [place], [address] RBC (Bld) [#/Vol] 4.03 10*6/uL Low 4.2-5.4 [facility] Comment on above: Order Comment: 411-2 Performed By: #### L 500.3400, L501.8100, L100.0500 #### [facility] [address] [place], [address] RDW SD 42.3 fl Normal 35.1-43.9 [facility] Comment on above: Order Comment: 411-2 Performed By: #### L 500.3400, L501.8100, L100.0500 #### [facility] [address] [place], [address] WBC (Bld) [#/Vol] 4.8 10*3/uL Normal 4.4-11.[address] [facility] Comment on above: Order Comment: 411-2 Performed By: #### L 500.3400, L501.8100, L100.0500 #### [facility] [address] [place], [address] Liver Profileon 10-06-2024 Albumin [Mass/Vol] 3.7 g/dL Normal 3.4-4.[address] [facility] Comment on above: Order Comment: 411-2 Performed By: #### L 500.3400, L501.8100, L100.0500 #### [facility] [address] [place], [address] ALK PHOS 51 U/L Normal 35-104 [facility] Comment on above: Order Comment: 411-2 Performed By: #### L 500.3400, L501.8100, L100.0500 #### [facility] [address] [place], [address] ALT [Catalytic activity/Vol] 12 U/L Normal <=34 [facility] Comment on above: Order Comment: 411-2 Performed By: #### L 500.3400, L501.8100, L100.0500 #### [facility] [address] [place], [address] AST [Catalytic activity/Vol] 19 U/L Normal <=31 [facility] Comment on above: Order Comment: 411-2 Performed By: #### L 500.3400, L501.8100, L100.0500 #### [facility] [address] [place], [address] Bilirubin [Mass/Vol] 0.57 mg/dL Normal 0.00-1.30 [facility] Comment on above: Order Comment: 411-2 Performed By: #### L 500.3400, L501.8100, L100.0500 #### [facility] [address] [place], [address] Bilirubin.direct [Mass/Vol] 0.24 mg/dL Normal 0.00-0.30 [facility] Comment on above: Order Comment: 411-2 Performed By: #### L 500.3400, L501.8100, L100.0500 #### [facility] [address] [place], [address] Globulin (S) [Mass/Vol] 2.0 g/dL Low 2.2-4.2 [facility] Comment on above: Order Comment: 411-2 Performed By: #### L 500.3400, L501.8100, L100.0500 #### [facility] [address] [place], [address] T PROT 5.7 g/dL Low 5.9-8.4 [facility] Comment on above: Order Comment: 411-2 Performed By: #### L 500.3400, L501.8100, L100.0500 #### [facility] [address] [place], [place], [address] Valproic Acid (Depakene) Lev itzel 10-06-2024 VALPROIC ACID 27 ug/mL Low 50-100 [facility] Comment on above: Order Comment: 411-2 Result Comment: Valp roic Acid concentrations >100 ug/mL are potentially toxic. Performed By: #### L 500.3400, L501.8100, L100.0500 #### [facility] [address] [place], [place], [address] CNPNon 08-17-2024 [facility] (INTMWS) -------- ALEXANDER XIAO ([id number]) 1940 F Date Time Provider Department 08/17/24 CHRISTINA EDMONDS During your visit today, we recorded the following information about you: Tamara Michelle RN 08/17/2024 12:37 PM Heidi Zhang with [facility] calls to review patient medications to see [...] pass information on to house doctor at [facility] to see how they want to proceed with medication management. Tamara Michelle RN Allergies As of Date: 08/17/2024 (No Known Allergies) Date Reviewed: 08/01/2024 Reviewed by: Christina Edmonds APRN.PLIER WORKER - Fully Assessed Reason for Visit: Patient Question [2861] Prescriptions as of 08/17/2024 - cholecalciferol (VITAMIN [...] Encounter Status:Closed by TAMARA MICHELLE on 08/17/24 [facility] 08-07-2024 [facility] Telephone (4CQ) -------- ALEXANDER XIAO ([id number]) 1940 F Date Time Provider Department 08/07/24 CHRISTINA EDMONDS 4CQ During your visit today, we recorded the following information about you: Patsy MarlaDelilah 08/07/2024 10:31 AM Signed Nephew Brigido is calling as he received a call from [facility] in regards to the Vit B-12 inj and if patient should be getting this at [facility]. Please advise Christina Howell APRN.RANDI 08/07/2024 2:21 PM Signed B12 has returned to with in normal limits, no need to continue these while in [facility], we can resume them once she follows back up with our office. Cathy Gold LPN 08/07/2024 2:50 PM Signed Spoke with nephew Brigido gave information provided. Pt voices understanding. Sunita Ocampo LPN 08/07/2024 3:02 PM Signed Patient nephcarmela Fofana calling back [facility] needs an order to discontinue the Vitamin [...] Status:Closed by CATHY GOLD on 08/07/24 Normal [facility] Basic Metabolic Profile (BMP )on 08-04-2024 BUN Normal 4-19 [facility] Comment on above: Order Comment: 411.2 Result Comment: LABS CANCELLED PER NURSE DANYELLE @0602 Performed By: #### L 500.2500, L500.4100, L100.0100 #### [facility] [address] [place], [address] BUN/CRE Normal 10-20 [facility] Comment on above: Order Comment: 411.2 Result Comment: LABS CANCELLED PER NURSE DANYELLE @0602 Performed By: #### L 500.2500, L500.4100, L100.0100 #### [facility] [address] [place], [address] Calcium Normal 7.6-11.0 [facility] Comment on above: Order Comment: 411.2 Result Comment: LABS CANCELLED PER NURSE DANYELLE @0602 Performed By: #### L 500.2500, L500.4100, L100.0100 #### [facility] [address] [place], [address] CL Normal 98-108 [facility] Comment on above: Order Comment: 411.2 Result Comment: LABS CANCELLED PER NURSE DANYELLE @0602 Performed By: #### L 500.2500, L500.4100, L100.0100 #### [facility] [address] [place], [address] CO2 Normal 21.0-32.0 [facility] Comment on above: Order Comment: 411.2 Result Comment: LABS CANCELLED PER NURSE DANYELLE @0602 Performed By: #### L 500.2500, L500.4100, L100.0100 #### [facility] [address] [place], [address] CREAT,SERUM Normal 0.70-1.20 [facility] Comment on above: Order Comment: 411.2 Result Comment: LABS CANCELLED PER NURSE DANYELLE @0602 Performed By: #### L 500.2500, L500.4100, L100.0100 #### [facility] [address] [place], [address] eGFR Normal >60 [facility] Comment on above: Order Comment: 411.2 Result Comment: LABS CANCELLED PER NURSE DANYELLE @0602 Performed By: #### L 500.2500, L500.4100, L100.0100 #### [facility] [address] [place], [address] GAP Normal 5-15 [facility] Comment on above: Order Comment: 411.2 Result Comment: LABS CANCELLED PER NURSE DANYELLE @0602 Performed By: #### L 500.2500, L500.4100, L100.0100 #### [facility] [address] [place], [address] GLU Normal 70-99 [facility] Comment on above: Order Comment: 411.2 Result Comment: LABS CANCELLED PER NURSE DANYELLE @0602 Performed By: #### L 500.2500, L500.4100, L100.0100 #### [facility] [address] [place], [address] Potassium Normal 3.3-5.1 [facility] Comment on above: Order Comment: 411.2 Result Comment: LABS CANCELLED PER NURSE DANYELLE @0602 Performed By: #### L 500.2500, L500.4100, L100.0100 #### [facility] [address] [place], [address] Basic Metabolic Profile (BMP) Normal 133-145 [facility] Comment on above: Order Comment: 411.2 Result Comment: LABS CANCELLED PER NURSE DANYELLE @0602 Performed By: #### L 500.2500, L500.4100, L100.0100 #### [facility] [address] [place], [address] CBC W/Diff, Automatedon 07-09 Absolute Neut Normal 2.0-7.7 [facility] Comment on above: Order Comment: 411.2 Result Comment: LABS CANCELLED PER NURSE DANYELLE @0602 Performed By: #### L 500.2500, L500.4100, L100.0100 #### [facility] [address] [place], [address] HCT Normal 37-47 [facility] Comment on above: Order Comment: 411.2 Result Comment: LABS CANCELLED PER NURSE DANYELLE @0602 Performed By: #### L 500.2500, L500.4100, L100.0100 #### [facility] [address] [place], [address] HGB Normal 12.0-15.0 [facility] Comment on above: Order Comment: 411.2 Result Comment: LABS CANCELLED PER NURSE DANYELLE @0602 Performed By: #### L 500.2500, L500.4100, L100.0100 #### [facility] [address] [place], [address] MCH Normal 27.0-32.0 [facility] Comment on above: Order Comment: 411.2 Result Comment: LABS CANCELLED PER NURSE DANYELLE @0602 Performed By: #### L 500.2500, L500.4100, L100.0100 #### [facility] [address] [place], [address] MCHC Normal 32-36 [facility] Comment on above: Order Comment: 411.2 Result Comment: LABS CANCELLED PER NURSE DANYELLE @0602 Performed By: #### L 500.2500, L500.4100, L100.0100 #### [facility] [address] [place], [address] MCV Normal 81-99 [facility] Comment on above: Order Comment: 411.2 Result Comment: LABS CANCELLED PER NURSE DANYELLE @0602 Performed By: #### L 500.2500, L500.4100, L100.0100 #### [facility] [address] [place], [address] NEUT% Normal 47-70 [facility] Comment on above: Order Comment: 411.2 Result Comment: LABS CANCELLED PER NURSE DANYELLE @0602 Performed By: #### L 500.2500, L500.4100, L100.0100 #### [facility] [address] [place], [address] PLT Normal 150-450 [facility] Comment on above: Order Comment: 411.2 Result Comment: LABS CANCELLED PER NURSE DANYELLE @0602 Performed By: #### L 500.2500, L500.4100, L100.0100 #### [facility] [address] [place], [address] RBC Normal 4.2-5.4 [facility] Comment on above: Order Comment: 411.2 Result Comment: LABS CANCELLED PER NURSE DANYELLE @0602 Performed By: #### L 500.2500, L500.4100, L100.0100 #### [facility] [address] [place], [address] RDW CV Normal 11.6-14.6 [facility] Comment on above: Order Comment: 411.2 Result Comment: LABS CANCELLED PER NURSE DANYELLE @0602 Performed By: #### L 500.2500, L500.4100, L100.0100 #### [facility] [address] [place], [address] RDW SD Normal 35.1-43.9 [facility] Comment on above: Order Comment: 411.2 Result Comment: LABS CANCELLED PER NURSE DANYELLE @0602 Performed By: #### L 500.2500, L500.4100, L100.0100 #### [facility] [address] [place], [address] WBC Normal 4.4-11.0 [facility] Comment on above: Order Comment: 411.2 Result Comment: LABS CANCELLED PER NURSE DANYELLE @0602 Performed By: #### L 500.2500, L500.4100, L100.0100 #### [facility] [address] [place], [address] Lipid Profileon 08-04-2024 CHOL Normal <=200 [facility] Comment on above: Order Comment: 411.2 Result Comment: LABS CANCELLED PER NURSE DANYELLE @0602 Performed By: #### L 500.2500, L500.4100, L100.0100 #### [facility] [address] [place], [address] CHOL:HDL Normal [facility] Comment on above: Order Comment: 411.2 Result Comment: LABS CANCELLED PER NURSE DANYELLE @0602 Performed By: #### L 500.2500, L500.4100, L100.0100 #### [facility] [address] [place], [address] CLDL Normal [facility] Comment on above: Order Comment: 411.2 Result Comment: LABS CANCELLED PER NURSE DANYELLE @0602 Performed By: #### L 500.2500, L500.4100, L100.0100 #### [facility] [address] [place], [address] HDL Normal [facility] Comment on above: Order Comment: 411.2 Result Comment: LABS CANCELLED PER NURSE DANYELLE @0602 Performed By: #### L 500.2500, L500.4100, L100.0100 #### [facility] [address] [place], [address] TRIG Normal [facility] Comment on above: Order Comment: 411.2 Result Comment: LABS CANCELLED PER NURSE DANYELLE @0602 Performed By: #### L 500.2500, L500.4100, L100.0100 #### [facility] [address] [place], [address] VLDL Normal 5-40 [facility] Comment on above: Order Comment: 411.2 Result Comment: LABS CANCELLED PER NURSE DANYELLE @0602 Performed By: #### L 500.2500, L500.4100, L100.0100 #### [facility] [address] [place], [address] 25(OH)D3 [facility] 2024 25-hydroxyvitamin D3 [Mass/Vol] 19.9 ng/mL Low 31.0-80.0 [facility] Comment on above: Order Comment: Speci men Type: BLOOD SPECIMEN Ordering Facility: [facility] Address: [address] [place] [address] Result Comment: Clas sification of 25 [place] Vitamin D status: Deficiency/Insufficiency: < or = 30 ng/ml. Sufficiency/Optimal Levels: 31-80 ng/mL Toxicity: > 100 ng/mL. Test performed by chemiluminescent immunoassay. Performed By: #### 1 989-3 #### [facility] CLIA [id number] [address] [place] [address] [place] CBC W Auto Differential pane l (Bld)on 08-01-2024 Basophils (Bld) [#/Vol] 0.07 10*3/uL [facility] Basophils/100 WBC (Bld) 1.1 % C [facility] Differential cell count method Nom (Bld) Auto [facility] Eosinophils (Bld) [#/Vol] 0.12 10*3/uL [facility] Eosinophils/100 WBC (Bld) 1.8 % [facility] Erythrocyte distribution width (RBC) [Ratio] 13 % 11.5 - 15.0 % [facility] Hematocrit (Bld) [Volume fraction] 41.7 % 36.0 - 46.0 % [facility] Hemoglobin (Bld) [Mass/Vol] 13.5 g/dL 11.5 - 15.5 g/dL [facility] Immature granulocytes (Bld) [#/Vol] [facility] Immature granulocytes/100 WBC (Bld) 0.3 % [facility] Lymphocytes (Bld) [#/Vol] 2.44 10*3/uL [facility] Lymphocytes/100 WBC (Bld) 37 % [facility] MCH (RBC) [Entitic mass] 30 pg 26. 0 - 34.0 pg [facility] MCHC (RBC) [Mass/Vol] 32.4 g/dL 30.5 - 36.0 g/dL [facility] MCV (RBC) [Entitic vol] 92.7 fL 80.0 - 100.0 fL [facility] Monocytes (Bld) [#/Vol] 0.5 10*3/uL [facility] Monocytes/100 WBC (Bld) 7.6 % [facility] Neutrophils (Bld) [#/Vol] 3.44 10*3/uL [facility] Neutrophils/100 WBC (Bld) 52.2 % [facility] Nucleated RBC (Bld) [#/Vol] [facility] Nucleated RBC/100 WBC (Bld) [Ratio] 0 % /100 WBC [facility] Platelet mean volume (Bld) [Entitic vol] 10.2 fL 9.0 - 12.7 fL [facility] Platelets (Bld) [#/Vol] 247 10*3/uL [facility] RBC (Bld) [#/Vol] 4.5 10*6/uL 3.90 - 5.2 0 m/uL [facility] WBC (Bld) [#/Vol] 6.59 10*3/uL [facility] Basophils (Bld) [#/Vol] 0.07 10*3/uL Normal <0.11 [facility] Comment on above: Order Comment: Speci men Type: BLOOD SPECIMEN Ordering Facility: [facility] Address: [address] [place] [address] Performed By: #### 2 432-8, LIPNF, 2132-01 #### [facility] CLIA [id number] [address] [place] [address] [place] Basophils/100 WBC (Bld) 1.1 % Normal [place] Comment on above: Order Comment: Speci men Type: BLOOD SPECIMEN Ordering Facility: [facility] Address: [address] [place] [address] Performed By: #### 2 4328, LIPNF, 2132-01 #### [facility] CLIA [id number] [address] [place] [address] [place] Differential cell count method Nom (Bld) Auto Normal [facility] Comment on above: Order Comment: Speci men Type: BLOOD SPECIMEN Ordering Facility: [facility] Address: [address] [place] [address] Performed By: #### 2 432-8, LIPNF, 2132-01 #### [facility] CLIA [id number] [address] [place] [address] [place] Eosinophils (Bld) [#/Vol] 0.12 10*3/uL Normal <0.46 [facility] Comment on above: Order Comment: Speci men Type: BLOOD SPECIMEN Ordering Facility: [facility] Address: [address] [place] [address] Performed By: #### 2 4323-8, LIPNF, 2132-01 #### [facility] CLIA [id number] [address] [place] [address] [place] Eosinophils/100 WBC (Bld) 1.8 % Normal [facility] Comment on above: Order Comment: Speci men Type: BLOOD SPECIMEN Ordering Facility: [facility] Address: [address] [place] [address] Performed By: #### 2 4323-8, LIPNF, 2132-01 #### [facility] CLIA [id number] [address] [place] [address] [place] Erythrocyte distribution width (RBC) [Ratio] 13.0 % Normal 11.5-15.0 [facility] Comment on above: Order Comment: Speci men Type: BLOOD SPECIMEN Ordering Facility: [facility] Address: [address] [place] [address] Performed By: #### 2 4323-8, LIPNF, 2132-01 #### [facility] CLIA [id number] [address] [place] [address] [place] Hematocrit (Bld) [Volume fraction] 41.7 % Normal 36.0-46.0 [facility] Comment on above: Order Comment: Speci men Type: BLOOD SPECIMEN Ordering Facility: [facility] Address: [address] [place] [address] Performed By: #### 2 4323-8, LIPNF, 2132-01 #### [facility] CLIA [id number] [address] [place] [address] [place] Hemoglobin (Bld) [Mass/Vol] 13.5 g/dL Normal 11.5-15.5 [facility] Comment on above: Order Comment: Speci men Type: BLOOD SPECIMEN Ordering Facility: [facility] Address: [address] [place] [address] Performed By: #### 2 4323-8, LIPNF, 2132-01 #### [facility] CLIA [id number] [address] [id number] [address] [place] Immature granulocytes (Bld) [#/Vol] 10*3/uL Normal <0.10 [facility] Comment on above: Order Comment: Speci men Type: BLOOD SPECIMEN Ordering Facility: [facility] Address: [address] [place] [address] Performed By: #### 2 4323-8, LIPNF, 2132-01 #### [facility] CLIA [id number] [address] [place] [address] [place] Immature granulocytes/100 WBC (Bld) 0.3 % Normal [facility] Comment on above: Order Comment: Speci men Type: BLOOD SPECIMEN Ordering Facility: [facility] Address: [address] [place] [address] Performed By: #### 2 432-8, LIPNF, 2132-01 #### [facility] CLIA [id number] [address] [place] [address] [place] Lymphocytes (Bld) [#/Vol] 2.44 10*3/uL Normal 1.00-4.00 [facility] Comment on above: Order Comment: Speci men Type: BLOOD SPECIMEN Ordering Facility: [facility] Address: [address] [place] [address] Performed By: #### 2 4323-8, LIPNF, 2132-01 #### [facility] CLIA [id number] [address] [place] [address] [place] Lymphocytes/100 WBC (Bld) 37.0 % Normal [facility] Comment on above: Order Comment: Speci men Type: BLOOD SPECIMEN Ordering Facility: [facility] Address: [address] [place] [address] Performed By: #### 2 4323-8, LIPNF, 2132-01 #### [facility] CLIA [id number] [address] [place] [address] [place] MCH (RBC) [Entitic mass] 30.0 pg Normal 26.0-34.0 [facility] Comment on above: Order Comment: Speci men Type: BLOOD SPECIMEN Ordering Facility: [facility] Address: [address] [place] [address] Performed By: #### 2 4323-8, LIPNF, 2132-01 #### [facility] CLIA [id number] [address] [place] [address] [place] MCHC (RBC) [Mass/Vol] 32.4 g/dL Normal 30.5-36.0 [facility] Comment on above: Order Comment: Speci men Type: BLOOD SPECIMEN Ordering Facility: [facility] Address: [address] [place] [address] Performed By: #### 2 4323-8, LIPJENNIFER, 2132-01 #### [facility] CLIA [id number] [address] [place] [address] [place] MCV (RBC) [Entitic vol] 92.7 fL Normal 80.0-100.0 [facility] Comment on above: Order Comment: Speci men Type: BLOOD SPECIMEN Ordering Facility: [facility] Address: [address] [place] [address] Performed By: #### 2 4323-8, LIPJENNIFER, 2132-01 #### [facility] CLIA [id number] [address] [place] [address] [place] Monocytes (Bld) [#/Vol] 0.50 10*3/uL Normal <0.87 [facility] Comment on above: Order Comment: Speci men Type: BLOOD SPECIMEN Ordering Facility: [facility] Address: [address] [place] [address] Performed By: #### 2 4323-8, LIPNF, 2132-01 #### [facility] CLIA [id number] [address] [place] [address] [place] Monocytes/100 WBC (Bld) 7.6 % Normal [facility] Comment on above: Order Comment: Speci men Type: BLOOD SPECIMEN Ordering Facility: [facility] Address: [address] [place] [address] Performed By: #### 2 4323-8, LIPNF, 2132-01 #### [facility] CLIA [id number] [address] [place] [address] [place] Neutrophils (Bld) [#/Vol] 3.44 10*3/uL Normal 1.45-7.50 [facility] Comment on above: Order Comment: Speci men Type: BLOOD SPECIMEN Ordering Facility: [facility] Address: [address] [place] [address] Performed By: #### 2 4323-8, LIPNF, 2132-01 #### [facility] CLIA [id number] [address] [place] [address] [place] Neutrophils/100 WBC (Bld) 52.2 % Normal [facility] Comment on above: Order Comment: Speci men Type: BLOOD SPECIMEN Ordering Facility: [facility] Address: [address] [place] [address] Performed By: #### 2 4323-8, LIPNF, 2132-01 #### [facility] CLIA [id number] [address] [place] [address] [place] Nucleated RBC (Bld) [#/Vol] 10*3/uL Normal <0.01 [facility] Comment on above: Order Comment: Speci men Type: BLOOD SPECIMEN Ordering Facility: [facility] Address: [address] [place] [address] Performed By: #### 2 4323-8, LIPNF, 2132-01 #### [facility] CLIA [id number] [address] [place] [address] [place] Nucleated RBC/100 WBC (Bld) [Ratio] 0.0 /100 WBC Normal [facility] Comment on above: Order Comment: Speci men Type: BLOOD SPECIMEN Ordering Facility: [facility] Address: [address] [place] [address] Performed By: #### 2 4323-8, LIPNF, 2132-01 #### [facility] CLIA [id number] [address] [place] [address] [place] Platelet mean volume (Bld) [Entitic vol] 10.2 fL Normal 9.0-12.7 [facility] Comment on above: Order Comment: Speci men Type: BLOOD SPECIMEN Ordering Facility: [facility] Address: [address] [place] [address] Performed By: #### 2 4323-8, LIPNF, 2132-01 #### [facility] CLIA [id number] [address] [place] [address] [place] Platelets (Bld) [#/Vol] 247 10*3/uL Normal 150-400 [facility] Comment on above: Order Comment: Speci men Type: BLOOD SPECIMEN Ordering Facility: [facility] Address: [address] [place] [address] Performed By: #### 2 4323-8, LIPNF, 2132-01 #### [facility] CLIA [id number] [address] [place] [address] [place] RBC (Bld) [#/Vol] 4.50 10*6/uL Normal 3.90-5.20 [facility] Comment on above: Order Comment: Speci men Type: BLOOD SPECIMEN Ordering Facility: [facility] Address: [address] [place] [address] Performed By: #### 2 4323-8, LIPNF, 2132-01 #### [facility] CLIA [id number] [address] [place] [address] [place] WBC (Bld) [#/Vol] 6.59 10*3/uL Normal 3.70-11.00 [facility] Comment on above: Order Comment: Speci men Type: BLOOD SPECIMEN Ordering Facility: [facility] Address: [address] [place] [address] Performed By: #### 2 4323-8, LIPNF, 2132-9 #### [facility] CLIA [id number] [address] [place], [place] [address] [facility] CNOVon 08-01-2024 CNOV Office Visit (INTMWS ) -------- ALEXANDER XIAO ([id number]) 1940 F Date Time Provider Department 08/01/24 2:00 PM CHRISTINA EDMONDS INTMWS During your visit today, we recorded the following information about you: Pulse Blood pressure Weight Height 80/minute 120/68 66.8 kg 1.73 m Christina Edmonds APRN.CNP 08/01/2024 2:44 PM Signed Alexanderjuliet Xiao is a 83 year old female [...] surgery and is currently in rehabilitation at [facility], which has been a significant adjustment for her. Family has spoke with admissions there and has been able to arrange for her to go to [facility] for respite care and stay in a room with Robert. Alexander had a skin tear on her leg after sliding out of her ledejtw-ml-edf's truck. The wound is reportedly improving and is not causing pain. She has been using bacitracin ointment for the wound. She has a history of low B12 and vitamin D levels. She had breakfast around 1030 today and has not yet had lunch. The patient/family consented to the use of [employer] software for draft documentation of the visit consistent with [facility]?s Notice of Privacy Practices. Her medications [...] - 07/12/2023 Hypothyroidism Hypercholesteremia Dm (Diabetes Mellitus) (Formerly [facility]) Social History Tobacco Use Smoking status: Never Smokeless tobacco: Never Vaping Use Vaping status: Never Used Substance Use Topics Alcohol use: Never Drug use: Never Review of Systems (more content not included)... Normal [facility] Comprehensive metabolic 2000 panelon 08-01-2024 Albumin [Mass/Vol] 4.4 g/dL Normal 3.9-4.9 [facility] Comment on above: Order Comment: Speci men Type: BLOOD SPECIMEN Ordering Facility: [facility] Address: [address] [place] [address] Performed By: #### 2 4323-8, LIPJENNIFER, 2132-01 #### [facility] CLIA [id number] [address] [place] [address] [place] ALP [Catalytic activity/Vol] 63 U/L Normal 34-123 [facility] Comment on above: Order Comment: Speci men Type: BLOOD SPECIMEN Ordering Facility: [facility] Address: [address] [place] [address] Performed By: #### 2 4323-8, LIPNF, 2132-01 #### [facility] CLIA [id number] [address] [place] [address] [place] ALT [Catalytic activity/Vol] 18 U/L Normal 7-38 [facility] Comment on above: Order Comment: Speci men Type: BLOOD SPECIMEN Ordering Facility: [facility] Address: [address] [place] [address] Performed By: #### 2 4323-8, LIPNF, 2132-01 #### [facility] CLIA [id number] [address] [place] [address] [place] Anion gap [Moles/Vol] 14 mmol/L Normal 8-15 [facility] Comment on above: Order Comment: Speci men Type: BLOOD SPECIMEN Ordering Facility: [facility] Address: [address] [place] [address] Performed By: #### 2 4323-8, LIPNF, 2132-01 #### [facility] CLIA [id number] [address] [place] [address] [place] AST [Catalytic activity/Vol] 24 U/L Normal 13-35 [facility] Comment on above: Order Comment: Speci men Type: BLOOD SPECIMEN Ordering Facility: [facility] Address: [address] [place] [address] Performed By: #### 2 4323-8, LIPNF, 2132-01 #### [facility] CLIA [id number] [address] [place] [address] [place] Bilirubin [Mass/Vol] 0.7 mg/dL Normal 0.2-1.3 [facility] Comment on above: Order Comment: Speci men Type: BLOOD SPECIMEN Ordering Facility: [facility] Address: [address] [place] [address] Performed By: #### 2 4323-8, LIPNF, 2132-01 #### [facility] CLIA [id number] [address] [place] [address] [place] Calcium [Mass/Vol] 10.2 mg/dL Normal 8.5-10.2 [facility] Comment on above: Order Comment: Speci men Type: BLOOD SPECIMEN Ordering Facility: [facility] Address: [address] [place] [address] Performed By: #### 2 4323-8, LIPNF, 2132-01 #### [facility] CLIA [id number] [address] [place] [address] [place] Chloride [Moles/Vol] 102 mmol/L Normal 98-107 [facility] Comment on above: Order Comment: Speci men Type: BLOOD SPECIMEN Ordering Facility: [facility] Address: [address] [place] [address] Performed By: #### 2 4323-8, LIPNF, 2132-01 #### [facility] CLIA [id number] [address] [place] [address] [place] CO2 [Moles/Vol] 25 mmol/L Normal 22-30 [facility] Comment on above: Order Comment: Speci men Type: BLOOD SPECIMEN Ordering Facility: [facility] Address: [address] [place] [address] Performed By: #### 2 4323-8, LIPNF, 2132-01 #### [facility] CLIA [id number] [address] [place] [address] [place] Creatinine [Mass/Vol] 0.76 mg/dL Normal 0.58-0.96 [facility] Comment on above: Order Comment: Speci men Type: BLOOD SPECIMEN Ordering Facility: [facility] Address: [address] [place] [address] Performed By: #### 2 4323-8, LIPNF, 2132-01 #### [facility] CLIA [id number] [address] [place] [address] [place] Creatinine and Glomerular filtration rate.predicted panel (S/P/Bld) 78 mL/min/1.73m??? Normal >=60 [facility] Comment on above: Order Comment: Speci men Type: BLOOD SPECIMEN Ordering Facility: [facility] Address: [address] [place] [address] Result Comment: Laura mated Glomerular Filtration Rate [...] By: #### 2 4323-8, LIZZY, 2132-01 #### [facility] CLIA [id number] [address] [place] [address] [place] Glucose [Mass/Vol] 160 mg/dL High 74-99 [facility] Comment on above: Order Comment: Speci men Type: BLOOD SPECIMEN Ordering Facility: [facility] Address: [address] [place] [address] Result Comment: The [place] Diabetes Association (ADA) provides guidance for cutoff [...] Standards of Medical Care in Diabetes 2016, [place] Diabetes Association. Diabetes Care. 2016.39(Suppl 1). Performed By: #### 2 4323-8, LIZZY, 2132-01 #### [facility] CLIA [id number] [address] [place] [address] [place] Potassium [Moles/Vol] 4.3 mmol/L Normal 3.7-5.1 [facility] Comment on above: Order Comment: Jourdan rodas Type: BLOOD SPECIMEN Ordering Facility: [facility] Address: [address] [place] [address] Performed By: #### 2 432-8, LIZZY, 2132-01 #### [facility] CLIA [id number] [address] [place] [address] [place] Protein [Mass/Vol] 6.9 g/dL Normal 6.3-8.0 [facility] Comment on above: Order Comment: Speci men Type: BLOOD SPECIMEN Ordering Facility: [facility] Address: [address] [place] [address] Performed By: #### 2 4323-8, LIPNF, 2132-01 #### [facility] CLIA [id number] [address] [place] [address] [place] Sodium [Moles/Vol] 141 mmol/L Normal 136-144 [facility] Comment on above: Order Comment: Speci men Type: BLOOD SPECIMEN Ordering Facility: [facility] Address: [address] [place] [address] Performed By: #### 2 4323-8, LIPNF, 2132-01 #### [facility] CLIA [id number] [address] [place] [address] [place] Urea nitrogen [Mass/Vol] 12 mg/dL Normal 7-21 [facility] Comment on above: Order Comment: Speci men Type: BLOOD SPECIMEN Ordering Facility: [facility] Address: [address] [place] [address] Performed By: #### 2 4323-8, LIPNF, 2132-01 #### [facility] CLIA [id number] [address] [place] [address] [place] HbA1c (Bld)on 08-01-2024 Average glucose Estimated from glycated hemoglobin (Bld) [Mass/Vol] 194 mg/dL Normal [facility] Comment on above: Order Comment: Speci men Type: BLOOD SPECIMEN Ordering Facility: [facility] Address: [address] [place] [address] Result Comment: eAG: (Estimated average glucose) is a calculated value from HgbA1c and is sales and service representative of the average blood glucose level in the last 2-3 month period. Performed By: #### 2 4323-8, LIPNF, 2132-01 #### [facility] CLIA [id number] [address] [place] [address] [place] HbA1c (Bld) [Mass fraction] 8.4 % High 4.3-5.6 [facility] Comment on above: Order Comment: Jourdan rodas Type: BLOOD SPECIMEN Ordering Facility: [facility] Address: [address] [place] [address] Result Comment: [place] Diabetes Association guidelines indicate that patients with HgbA1c in the range 5.7-6.4% are at increased risk for development of diabetes, and intervention by lifestyle modification may be beneficial. HgbA1c greater or equal to 6.5% is considered diagnostic of diabetes. Performed By: #### 2 4323-8, LIPJENNIFER, 2132-01 #### [facility] CLIA [id number] [address] [place] [address] [place] LIPID PANEL, NONFASTINGon Cholesterol [Mass/Vol] 161 mg/dL Normal <200 [facility] Comment on above: Order Comment: Jourdan rodas Type: BLOOD SPECIMEN Ordering Facility: [facility] Address: [address] [place] [address] Result Comment: <200 mg/dL, Desirable 200-239 mg/dL, Borderline high >239 mg/dL, High Performed By: #### 2 4323-8, LIPJENNIFER, 2132-01 #### [facility] CLIA [id number] [address] [place] [address] [place] HDL CHOLESTEROL, NF 69 mg/dL Normal >39 [facility] Comment on above: Order Comment: Jourdan rodas Type: BLOOD SPECIMEN Ordering Facility: [facility] Address: [address] [place] [address] Result Comment: 40-5 9 mg/dL, Acceptable >59 mg/dL, High: Negative risk factor for coronary heart disease <40 mg/dL, Low: Positive risk factor for coronary heart disease Performed By: #### 2 4323-8, LIPNF, 2132-01 #### [facility] CLIA [id number] [address] [place] [address] [place] LDL CHOLESTEROL, NF 60 mg/dL Normal <100 [facility] Comment on above: Order Comment: Jourdan rodas Type: BLOOD SPECIMEN Ordering Facility: [facility] Address: [address] [place] [address] Result Comment: <100 mg/dL, Optimal 100-129 mg/dL, Near optimal/above optimal 130-159 mg/dL, Borderline high 160-189 mg/dL, High >189 mg/dL, Very high Secondary prevention optimal LDL Cholesterol levels are recommended to be < 70 mg/dL Performed By: #### 2 4323-8, LIPNF, 2132-01 #### [facility] CLIA [id number] [address] [place] [address] [place] LDL/HDL RATIO, NF 0.87 mg/dL Normal <2.54 [facility] Comment on above: Order Comment: Jourdan rodas Type: BLOOD SPECIMEN Ordering Facility: [facility] Address: [address] [place] [address] Result Comment: Refe rence: 1. National Cholesterol Education Program ATP III Guideline At-A-Glance Quick Desk Reference: National Heart, Lung, and Blood Bowers. National Institutes of Health. 2001: NIH Publication No. 01-3305. 2. An International Atherosclerosis Society position paper: global recommendations for the management of dyslipidemia: executive summary, Atherosclerosis. 2014: 232(2):410-413. Performed By: #### 2 4323-8, LIPNF, 2132-01 #### [facility] CLIA [id number] [address] [place] [address] [place] NON HDL CHOL, NF 92 mg/dL Normal <130 [facility] Comment on above: Order Comment: Jourdan rodas Type: BLOOD SPECIMEN Ordering Facility: [facility] Address: [address] [place] [address] Result Comment: <130 mg/dL, Optimal 130-159 mg/dL, Near optimal/above optimal 160-189 mg/dL, Borderline high 190-219 mg/dL, High >219 mg/dL, Very high Secondary prevention optimal non HDL Cholesterol levels are recommended to be <100 mg/dL Performed By: #### 2 4323-8, LIPNF, 2132-01 #### [facility] CLIA [id number] [address] [place], [place] [address] [place] T CHOL/HDL RATIO NF 2.33 mg/dL Normal <5.10 [facility] Comment on above: Order Comment: Speci men Type: BLOOD SPECIMEN Ordering Facility: [facility] Address: [address] [place] [address] Performed By: #### 2 4323-8, LIPNF, 2132-01 #### [facility] CLIA [id number] [address] [place], [place] [address] [place] TRIGLYCERIDES, NF 159 mg/dL High <150 [facility] Comment on above: Order Comment: Speci men Type: BLOOD SPECIMEN Ordering Facility: [facility] Address: [address] [place], [place] [address] Result Comment: <150 mg/dL, Normal 150-199 mg/dL, Borderline high 200-499 mg/dL, High >499 mg/dL, Very high Performed By: #### 2 4323-8, LIPNF, 2132-01 #### [facility] CLIA [id number] [address] [place], [place] [address] [place] VLDL CHOLESTEROL, NF 32 mg/dL High <30 [facility] Comment on above: Order Comment: Speci men Type: BLOOD SPECIMEN Ordering Facility: [facility] Address: [address] [place], [place] [address] Performed By: #### 2 4323-8, LIPNF, 2132-01 #### [facility] CLIA [id number] [address] [place] [address] [place] Vit B12 [facility] 03-25-2 025 Cobalamin (Vitamin B12) [Mass/Vol] 247 pg/mL Normal 232-1245 [facility] Comment on above: Order Comment: Manniei adrianna Type: BLOOD SPECIMEN Ordering Facility: [facility] Address: [address] [place] [address] Performed By: #### 2 4323-8, LIZZY, 2132-9 #### [facility] CLIA [id number] [address] [place] [address] STATES OF [facility] CNPNon 07-28-2024 CNPN Telephone (INTMWS) -------- ALEXANDER XIAO ([id number]) 1940 F Date Time Provider Department 07/28/24 CHRISTINA EDMONDS During your visit today, we recorded the following information about you: Sunita Ocampo LPN 07/28/2024 1:23 PM Signed Patient manuel Negrete calling she has started the process of having her aunt admitted to [facility]. She said needed letter and copy of last office notes from 03/2024 signed. Advised [facility] usually needs a more recent office visit note and admission orders completed. She said has appt scheduled for end of July with Tamara Nick RN 07/31/2024 12:09 PM Signed Ruby with [facility] calls to request most recent OV note and med list for respite stay at [facility]. Faxed to [phone] per request. Ruby aware that it is [...] process began to get her admitted to [facility] [Other] Prescriptions as of 08/01/2024 - busPIRone [...] Encounter Status:Closed by CHRISTINA EDMONDS on 08/01/24 [facility] 07-24-2024 [facility] Telephone (4CQ) -------- ALEXANDER XIAO ([id number]) 1940 F Date Time Provider Department 07/24/24 CHRISTINA EDMONDS 4CQ During your visit today, we recorded the following information about you: Mariposa Carr 07/24/2024 2:22 PM Signed Pt called to make sure that refill request for Levothyroxine was received from [facility]'s PT is almost out of medication and needs refill. Corey Ho, RN 07/24/2024 2:52 PM Signed Called and spoke with pharmacist at [facility] [[email or web address] She asked if pt was taking her [...] same phone number so unable to leave [facility]. Will assume pt will check with pharmacy [...] Status:Closed by COREY HO on 07/24/24 Normal [facility] CNOVon 07-19-2024 CNOV Office Visit (UCWSTR ) -------- ALEXANDER XIAO ([id number]) 1940 F Date Time Provider Department 07/19/24 5:30 PM GEMMA SAEED [facility] During your visit today, we recorded the following information about you: Temperature Pulse Respiration Blood pressure 98.5 degrees 69/minute 18/minute 122/80 Weight 68.4 kg Gemma Saeed APRN.PLIER WORKER 07/19/2024 6:15 PM Signed [facility] [...] BACITRACIN 500 UNIT/GRAM TOPICAL OINTMENT Gemma Saeed APRN.PLIER WORKER MDM Procedures Allergies As of Date: 07/19/2024 (No Known Allergies) Date Reviewed: 07/19/2024 Reviewed by: Senait Vieira LPN - Fully Assessed Reason for Visit: scrape on lower right leg [Other] Cmt: X 1.5 hours Primary Visit Diagnosis:Skin tear of lower leg without complication, initial encounter [S81.819A] Order(s):cephALEXin (KEFLEX) 500 mg capsuleTake 1 capsule [...] - donepe (more content not included)... Normal [facility] 05-23-2024 [facility] Telephone (INTMWS) -------- ALEXANDER XIAO ([id number]) 1940 F Date Time Provider Department 05/23/24 JOSE JENKINSWS During your visit today, we recorded the [...] Encounter Status:Closed by JOSE JENKINS on 07/18/24 [facility] 05-17-2024 [facility] Nurse Visit (FAMPWS) -------- LANGALEXANDER ([id number]) 1940 F Date Time Provider Department 05/17/24 2:15 PM MT NURSE MARY During your visit today, we [...] Encounter Status:Closed by KILEY TAVAREZ [facility] -------- ALEXANDER XIAO ([id number]) 1940 F Date Time Provider Department 05/08/24 1:15 PM [facility] During your visit today, we recorded the [...] Encounter Status:Closed by KILEY TAVAREZ on 05/08/24 [facility] Nurse Visit (FAMPWS) -------- ALEXANDER XIAO ([id number]) 1940 F Date Time Provider Department 05/01/24 1:30 PM [facility] During your visit today, we recorded the [...] Encounter Status:Closed by KILEY TAVAREZ on 05/01/24 [facility] 04-27-2024 [facility] Tele[facility] (INTMWS) -------- ALEXANDER XIAO ([id number]) 1940 F Date Time Provider Department 04/27/24 CHRISTINA EDMONDS INTWS During your visit today, we recorded [...] Encounter Status:Closed by KILEY TAVAREZ on 04/28/24 [facility] Telephone (GERIWR) -------- ALEXANDER XIAO ([id number]) 1940 F Date Time Provider Department 04/27/24 [...] for 4 weeks and then months Regards, Corey Oh MD, RN 04/27/2024 1:37 PM Signed Called and left a voicemail for the patient to call back and ask for a nurse to receive the providers message. Herman Marino, OWEN 04/27/2024 1:59 PM Signed returned call and [...] Status:Closed by Herman MARINO on 04/27/24 Normal [facility] CNOVon 04-26-2024 CNOV Office Visit (SOLITARIO ) -------- ALEXANDER XIAO ([id number]) 1940 F Date Time Provider Department 04/26/24 2:30 PM JOSE JENKINS During your visit today, we recorded the following information about you: Pulse Respiration Blood pressure Weight Normal [facility] Vit B12 SerPl-mCncon 024 Cobalamin (Vitamin B12) [Mass/Vol] 169 pg/mL Low 232-1245 [facility] Comment on above: Order Comment: Speci men Type: BLOOD SPECIMEN Ordering Facility: [facility] Address: [address] [place] [address] [place] [address] Performed By: #### 2 4323-8, LIZZY, 2132-9 #### [facility] CLIA [id number] [address] [place] [address] [place] [facility] CNOVon 04-25-2024 CNOV Office Visit (PODIWS ) -------- ALEXANDER XIAO ([id number]) 1940 F Date Time Provider Department 04/25/24 1:00 PM DAGMAR ORTIZ PODIWS During your visit today, we recorded the [...] Objective: Patient presents to clinic ambulating in sneakers Vasc: DP and PT pulses are palpable [...] Dagmar Ortiz DPM Referring Provider: DAGMAR ORTIZ [[id number]] Allergies As of Date: 04/25/2024 (No Known [...] calcium elevated [E83.52] 11/16/2016 12/10/2017 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[facility]) [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] 07/12/2023 Encounter Status:Closed by DAGMAR ORTIZ DPM on 04/25/24 [facility] CNOVon 03-14-2024 CNOV Office Visit (INTMWS ) -------- ALEXANDER XIAO ([id number]) 1940 F Date Time Provider Department 03/14/24 1:20 PM CHRISTINA EDMONDS INTMWS During your visit today, we recorded the following information about you: Pulse Blood pressure Weight 76/minute 132/72 69.4 kg Christina Edmonds APRN.PLIER WORKER 03/14/2024 2:08 PM Signed SUBJECTIVE Alexander Xiao [...] - 07/12/2023 Hypothyroidism Hypercholesteremia Dm (Diabetes Mellitus) ([facility]) Social History Tobacco Use Smoking status: [...] and t (more content not included)... Normal [facility] 02-10-2024 [facility] Telephone (INTMWS) -------- ALEXANDER XIAO ([id number]) 1940 F Date Time Provider Department 02/10/24 CHRISTINA EDMONSD During your visit today, we recorded the [...] N/A Please return call to , Jude [phone] Was an appointment scheduled: No Closing statement: Results or non-symptom based questions: Thank you for calling [facility], your call will be returned within [...] Encounter Status:Closed by CHRISTINA EDMONDS on 02/11/24 Normal [facility] CNOVon 01-25-2024 CNOV Office Visit (PODIWS ) -------- ALEXANDER XIAO ([id number]) 1940 F Date Time Provider Department 01/25/24 11:00 AM DAGMAR ORTIZ PODIWS During your visit today, we recorded the following information about you: Rach Gatica, OWEN 01/25/2024 11:21 AM Signed Patient presents with: [...] (or decreased sensation in your feet) a technical research scientist should always cut your toenails. Be Careful [...] Go to your health care provider or technical research scientist to treat these conditions. Dagmar Ortiz 01/25/2024 [...] Patient presents to clinic ambulating in k palestinian tennis shoes Vasc: DP and PT pulses are nonpalpabe left and faintly palpable right. C (more content not included)... Normal [facility] - Drug toxicology Ordered By: Emir Zhou on 06-22-2023 Amphetamines Ql (U) Negative <1000 ng/mL [facility] Benzodiazepines Ql (U) Negative < 200 ng/mL [facility] Cannabinoids Screen Ql (U) Negative < 50 ng/mL [facility] Cocaine Ql (U) Negative < 300 ng/mL [facility] Opiates Ql (U) Negative < 300 ng/mL [facility] No Panel InformationOrdered By: Emir Zhou on 06-22-2023 MDMA (Ecstasy) Screen Negative < 500 ng/mL [facility] Urine Barbiturates Screen Negative < 200 ng/mL [facility] Center Urine Drug Screen Comment [facility] Comment on above: CONFIRMATORY TESTING FOR ALL [...] Urine Methadone Screen Negative < 300 ng/mL [facility] Thin prep Papanicolaou smear with manual screeningOrdered By: Teddy Turpin on 06-22-2023 Thin prep Papanicolaou smear with manual screening 177 mg/dL 74-106 [facility] Comment on above: MANAGEMENT OF PATIEN T CARE PER NURSING PROTOCOL Urine phencyclidine (PCP) de tectionOrdered By: Emir Zhou on 06-22-2023 Phencyclidine Ql (U) Negative < 25 ng/mL [facility] Absolute lymphocyte countOrd ered By: Viri Mcclelland on 06-20-2023 Lymphocytes Auto (Unsp spec) [#/Vol] 1.77 10*3/uL 0.83-4.51 [facility] Automated lymphocyte count a s percentage of total leukocytesOrdered By: Viri Mcclelland on 06-20-2023 Lymphocytes/100 WBC Auto (Unsp spec) 35.5 % 19-41 [facility] Basophil percentageOrdered B y: Viri Mcclelland on 06-20-2023 Basophils/100 WBC (Bld) 1.0 % 0-1 [facility] Bilirubin [Mass/Vol] 1.10 mg/dL 0.20-1.00 [facility] Comment on above: For patients on eltr ombopag therapy, use of Dimension [place] TBIL is not recommended. Chloride [Moles/Vol] 104 mmol/L 98-107 [facility] Eosinophils/100 WBC (Bld) 1.8 % 0-5 [facility] Glucose [Mass/Vol] 315 mg/dL 74-[address] [facility] Comment on above: Glucose result great er than or equal to 200 mg/dLsuggests DIABETES MELLITUS per A.D.A. criteria. Hemoglobin (Bld) [Mass/Vol] 14.1 g/dL 12.0-15.0 [facility] Monocytes/100 WBC (Bld) 10.2 % 0-10 [facility] Neutrophils (Bld) [#/Vol] 2.6 10*3/uL 2.0-7.7 [facility] Neutrophils/100 WBC (Bld) 51.1 % 47-70 [facility] Potassium [Moles/Vol] 3.8 mmol/L 3.5-5.1 [facility] Protein [Mass/Vol] 5.9 g/dL 6.4-8.[address] [facility] Sodium [Moles/Vol] 136 mmol/L 136-[address] [facility] WBC (Bld) [#/Vol] 5.0 10*3/uL 4.4-11.[address] [facility] Determination of erythrocyte mean corpuscular volume (MCV)Ordered By: Viri Mcclelland on 06-20-2023 MCV (RBC) [Entitic vol] 88.1 fL 81-99 [facility] Erythrocyte distribution wid th ratioOrdered By: Viri Mcclelland on 06-20-2023 Erythrocyte distribution width (RBC) [Ratio] 12.9 % 11.6-14.6 [facility] Erythrocyte distribution wid th standard deviationOrdered By: Viri Mcclelland on 06-20-2023 Erythrocyte distribution width (RBC) [Entitic vol] 42.0 fL 35.1-43.9 [facility] Hematocrit Auto (Bld) [Volum e fraction]Ordered By: Viri Mcclelland on 06-20-2023 Hematocrit (Bld) [Volume fraction] 42.0 % 37-47 [facility] Immature granulocytes/100 WB C Auto (Bld)Ordered By: Viri Mcclelland on 06-20-2023 Immature granulocytes/100 WBC (Bld) 0.400 % 0.0-0.9 [facility] Comment on above: IG% - Immature Granu locytes (promyelocytes, myelocytes and metamyelocytes) > 1% indicates that a LEFT SHIFT is Present. Laboratory - Chemistry and C hemistry - challengeOrdered By: Viri Mcclelland on 06-20-2023 Albumin/Globulin [Mass ratio] 1.1 {ratio} 0.9-2.4 [facility] ALP [Catalytic activity/Vol] 68 U/L 45-117 [facility] ALT [Catalytic activity/Vol] 18 U/L 13-56 [facility] CO2 [Moles/Vol] 26.0 mmol/L 21.0-32.0 [facility] Cobalamin (Vitamin B12) [Mass/Vol] 211 pg/mL 211-911 [facility] Globulin (S) [Mass/Vol] 2.8 g/dL 2.2-4.2 [facility] Urea nitrogen/Creatinine [Mass ratio] 13.5 mg/mg 10-20 [facility] Laboratory - Hematology and Cell countsOrdered By: Viri Mcclelland on 06-20-2023 MCH (RBC) [Entitic mass] 29.6 pg 27.0-32.0 [facility] MCHC (RBC) [Mass/Vol] 33.6 g/dL 32-36 [facility] Nucleated RBC/100 WBC (Bld) [Ratio] 0 % 0-5 [facility] Platelet mean volume (Bld) [Entitic vol] 9.7 fL 6.2-12.0 [facility] Platelets (Bld) [#/Vol] 172 10*3/uL 150-450 [facility] No Panel InformationOrdered By: Viri Mcclelland on 06-20-2023 Estimated Creatinine Clearance Calc 53.36 ml/min [facility] Estimated GFR (MDRD) Amer 86 mL/min >60 [facility] Comment on above: GFR Calc Estimated GFR (MDRD) Non-Af Amer 71 mL/min >60 [facility] Comment on above: Non- GFR Calc RBC Auto (Bld) [#/Vol]Ordere d By: Viri Mcclelland on 06-20-2023 RBC (Bld) [#/Vol] 4.77 10*6/uL 4.2-5.4 [facility] Serum Treponema species anti body detectionOrdered By: iVri Mcclelland on 06-20-2023 Treponema sp Ab Ql (S) Non-Reactive [facility] Serum or plasma calcium yumiko urement (mass/volume)Ordered By: Viri Mcclelland on 06-20-2023 Calcium [Mass/Vol] 9.1 mg/dL 8.5-10.[address] [facility] Serum or plasma creatinine m easurement (mass/volume)Ordered By: Viri Mcclelland on 06-20-2023 Creatinine [Mass/Vol] 0.82 mg/dL 0.55-1.02 [facility] Comment on above: The validity of the calculated GFR & GFRAA in patients over 70 years has not been determined. Clinical correlation is essential. Serum or plasma urea nitroge n measurement (mass/volume)Ordered By: Viri Mcclelland on 06-20-2023 Urea nitrogen [Mass/Vol] 11 mg/dL 7-18 [facility] Thin prep Papanicolaou smear with manual screeningOrdered By: Viri Mcclelland on 06-20-2023 Thin prep Papanicolaou smear with manual screening 3.1 g/dL 3.2-5.0 [facility] Thin prep Papanicolaou smear with manual screening 16 U/L 15-37 [facility] Thin prep Papanicolaou smear with manual screening 6 5-15 [facility] Basophil percentageOrdered B y: Artur Gallardo on 06-19-2023 Basophil percentage 0 SEEN /hpf 0-5 [facility] Bilirubin Test strip Ql (U)O rdered By: Artur Gallardo on 06-19-2023 Bilirubin Ql (U) Negative Negative [facility] Erythrocyte sedimentation ra teOrdered By: Viri Mcclelland on 06-19-2023 ESR (Bld) [Velocity] 3 mm/h 0-30 [facility] Ketones Test strip Ql (U)Ord ered By: Artur Gallardo on 06-19-2023 Ketones Ql (U) 5 mg/dl Negative [facility] Laboratory - Microbiology an d Antimicrobial susceptibilityOrdered By: Artur Gallardo on 06-19-2023 SARS-CoV-2 (COVID-19) RNA MOLLY+probe Ql (Unsp spec) [facility] Mucus LM Ql (Urine sed)Order ed By: Artur Gallardo on 06-19-2023 Mucus Ql (Urine sed) 0 SEEN /hpf [facility] Nitrite Test strip Ql (U)Ord ered By: Artur Gallardo on 06-19-2023 Nitrite Ql (U) Negative Negative [facility] No Panel InformationOrdered By: Artur Gallardo on 06-19-2023 Urine RBC 0 SEEN /hpf 0-5 [facility] Troponin I High Sensitivity 9 pg/mL 3.0-54.0 [facility] Comment on above: Please Note: New [place]arn[place] t Units and Gender Specific Reference Ranges. For more information see Policy Stat Procedure [place] High Sensitivity Troponin (TNIH) and attachments. No Panel InformationOrdered By: Viri Mcclelland on 06-19-2023 C-Reactive Protein Extended Range < 2.90 mg/L 0.0-3.0 [facility] Comment on above: C-Reactive Protein ( CRP) provides useful information for thediagnosis, therapy and monitoring of inflammatory processesand associated diseases. For the evaluation of Relative Riskfor Cardiovascular Disease, a High Sensitivity CRP (HSCRP)should be ordered. Folate 19.10 ng/mL 3.1-55.4 [facility] Free Triiodothyronine (T3) pg/dL 1.9 pg/mL 2.18-3.98 [facility] Protein Test strip Ql (U)Ord ered By: Artur Gallardo on 06-19-2023 Protein Ql (U) Negative Negative [facility] Serum or plasma thyroid stim ulating hormone (TSH) measurement (units/volume)Ordered By: Viri Mcclelland on 06-19-2023 TSH Qn 18.30 uIU/mL 0.358-3.74 [facility] Squamous epithelial cells de tection in urine sediment by light microscopyOrdered By: Artur Gallardo on 06-19-2023 Epithelial cells.squamous LM Ql (Urine sed) 0-5 SEEN /hpf 5-10 [facility] Thin prep Papanicolaou smear with manual screeningOrdered By: Viri Mcclelland on 06-19-2023 Thin prep Papanicolaou smear with manual screening 0.69 ng/dL 0.76-1.46 [facility] Urine blood detectionOrdered By: Artur Gallardo on 06-19-2023 RBC Ql (U) Negative Negative [facility] Urine clarityOrdered By: Isaac Gallardo on 06-19-2023 Clarity (U) Clear Clear [facility] Urine color determinationOrd ered By: Artur Gallardo on 06-19-2023 Color (U) Yellow Yellow [facility] Urine glucose detectionOrder ed By: Artur Gallardo on 06-19-2023 Glucose Ql (U) 1000 mg/dl Normal [facility] Urine leukocyte esterase det ection by dipstickOrdered By: Artur Gallardo on 06-19-2023 Leukocyte esterase Test strip Ql (U) Negative Negative [facility] Urine pHOrdered By: Artur arroyo on 06-19-2023 pH (U) 6.0 [pH] 5.0 - 8.0 [facility] Urine sediment bacteria coun t by microscopy (number/high power field)Ordered By: Artur Gallardo on 06-19-2023 Bacteria LM.HPF (Urine sed) [#/Area] 0 /[HPF] None Seen [facility] Urine specific gravity measu rementOrdered By: Artur Gallardo on 06-19-2023 Specific gravity (U) [Rel density] 1.015 1.002-1.030 [facility] Urine urobilinogen measureme ntOrdered By: Artur Gallardo on 06-19-2023 Urobilinogen Ql (U) Normal mg/dl Normal [facility] Whole blood hemoglobin A1c/t otal hemoglobin ratio (mass fraction)Ordered By: Viri Mcclelland on 06-19-2023 HbA1c (Bld) [Mass fraction] 13.0 % 3.8-5.6 [facility] Comment on above: Normal < 5.7 % Predi abetic 5.7 - 6.4 % Diabetic >or= 6.5 % Please note range changes. Glucose Glucometer (BldC) [M ass/Vol]on 02-04-2022 Glucose [Mass/Vol] 280 mg/dL 74-[address] [facility] Work Phone: Comment on above: MANAGEMENT OF PATIEN T CARE PER NURSING PROTOCOL Absolute lymphocyte counton 02-03-2022 Lymphocytes Auto (Unsp spec) [#/Vol] 1.01 10*3/uL 0.83-4.51 [facility] Work Phone: Basophil percentageon 2021 Basophils/100 WBC (Bld) 0.5 % 0-1 [facility] Work Phone: Chloride [Moles/Vol] 98 mmol/L 98-107 [facility]: Eosinophils/100 WBC (Bld) 0.3 % 0-5 [facility] Work Phone: Glucose [Mass/Vol] 140 mg/dL 74-[address] [facility] Work Phone: Comment on above: Fasting Glucose resu lt greater than or equal to 126 mg/dL suggests DIABETES MELLITUS per A.D.A. criteria. Neutrophils (Bld) [#/Vol] 2.6 10*3/uL 2.0-7.7 [facility] Work Phone: Neutrophils/100 WBC (Bld) 66.0 % 47-70 [facility] Work Phone: Potassium [Moles/Vol] 3.7 mmol/L 3.5-5.1 [facility] Work Phone: [phone] Sodium [Moles/Vol] 133 mmol/L 136-[address] [facility] Work Phone: WBC (Bld) [#/Vol] 4.0 10*3/uL 4.4-11.[address] [facility] Work Phone: Blood erythrocytes count (nu mber/volume)on 02-03-2022 RBC (Bld) [#/Vol] 4.38 10*6/uL 4.2-5.4 [facility]: Blood hemoglobin measurement (mass/volume)on 02-03-2022 Hemoglobin (Bld) [Mass/Vol] 13.3 g/dL 12.0-15.0 [facility] Work Phone: Blood lymphocytes/100 leukoc yteson 02-03-2022 Lymphocytes/100 WBC (Bld) 25.6 % 19-41 [facility] Work Phone: Blood monocytes/100 leukocyt eson 02-03-2022 Monocytes/100 WBC (Bld) 7.3 % 0-10 [facility] Work Phone: Blood platelet mean volumeon 02-03-2022 Platelet mean volume (Bld) [Entitic vol] 9.9 fL 6.2-12.0 [facility] Work Phone: [phone] Determination of erythrocyte mean corpuscular volume (MCV)on 02-03-2022 MCV (RBC) [Entitic vol] 86.8 fL 81-99 [facility] Work Phone: Hematocrit Auto (Bld) [Volum e fraction]on 02-03-2022 Hematocrit (Bld) [Volume fraction] 38.0 % 37-47 [facility] Work Phone: Laboratory - Chemistry and C hemistry - challengeon 02-03-2022 CO2 [Moles/Vol] 25.0 mmol/L 21.0-32.0 [facility] Work Phone: Urea nitrogen/Creatinine [Mass ratio] 10.7 mg/mg 10-20 [facility] Work Phone: Laboratory - Hematology and Cell countson 02-03-2022 Erythrocyte distribution width (RBC) [Entitic vol] 40.6 fL 35.1-43.9 [facility] Work Phone: Erythrocyte distribution width (RBC) [Ratio] 12.7 % 11.6-14.6 [facility] Work Phone: Immature granulocytes/100 WBC (Bld) 0.300 % 0.0-0.9 [facility] Work Phone: Comment on above: IG% - Immature Granu locytes (promyelocytes, myelocytes and metamyelocytes) > 1% indicates that a LEFT SHIFT is Present. MCH (RBC) [Entitic mass] 30.4 pg 27.0-32.0 [facility] Work Phone: Nucleated RBC/100 WBC (Bld) [Ratio] 0 % 0-5 [facility] Work Phone: MCHC Auto (RBC) [Mass/Vol]on 02-03-2022 MCHC (RBC) [Mass/Vol] 35.0 g/dL 32-36 [facility] Work Phone: No Panel Informationon 02-03 Estimated Creatinine Clearance Calc 43.39 ml/min [facility] Work Phone: Estimated GFR (MDRD) Amer 112 mL/min >60 [facility] Work Phone: Comment on above: GFR Calc Estimated GFR (MDRD) Non-Af Amer 93 mL/min >60 [facility] Work Phone: Comment on above: Non- GFR Calc Platelets bldon 02-03-2022 Platelets (Bld) [#/Vol] 214 10*3/uL 150-450 [facility] Work Phone: Serum or plasma calcium yumiko urement (mass/volume)on 02-03-2022 Calcium [Mass/Vol] 8.9 mg/dL 8.5-10.[address] [facility] Work Phone: Serum or plasma creatinine m easurement (mass/volume)on 02-03-2022 Creatinine [Mass/Vol] 0.65 mg/dL 0.55-1.02 [facility] Work Phone: Comment on above: The validity of the calculated GFR & GFRAA in patients over 70 years has not been determined. Clinical correlation is essential. Serum or plasma urea nitroge n measurement (mass/volume)on 02-03-2022 Urea nitrogen [Mass/Vol] 7 mg/dL 7-18 [facility] Work Phone: Thin prep Papanicolaou smear with manual screeningon 02-03-2022 Thin prep Papanicolaou smear with manual screening 10 5-15 [facility] Work Phone: Basophil percentageon 2021 Bilirubin [Mass/Vol] 0.60 mg/dL 0.20-1.00 [facility] Work Phone: Comment on above: For patients on eltr ombopag therapy, use of Dimension [place] TBIL is not recommended. Protein [Mass/Vol] 6.2 g/dL 6.4-8.[address] [facility] Work Phone: Laboratory - Chemistry and C hemistry - challengeon 02-02-2022 ALP [Catalytic activity/Vol] 49 U/L 45-117 [facility] Work Phone: ALT [Catalytic activity/Vol] 18 U/L 13-56 [facility] Work Phone: Globulin (S) [Mass/Vol] 3.1 g/dL 2.2-4.2 [facility] Work Phone: No Panel Informationon 02-02 Troponin I High Sensitivity 4 pg/mL 3.0-54.0 [facility] Work Phone: Comment on above: Please Note: New [place] Units and Gender Specific Reference Ranges. For more information see Policy Stat Procedure [place] High Sensitivity Troponin (TNIH) and attachments. Serum or plasma albumin yumiko urement (mass/volume)on 02-02-2022 Albumin [Mass/Vol] 3.1 g/dL 3.2-5.[address] [facility] Work Phone: Serum or plasma albumin/glob ulin mass ratioon 02-02-2022 Albumin/Globulin [Mass ratio] 1.0 {ratio} 0.9-2.4 [facility] Work Phone: Thin prep Papanicolaou smear with manual screeningon 02-02-2022 Thin prep Papanicolaou smear with manual screening 31 U/L 15-37 [facility] Work Phone: Comment on above: Moderate Hemolysis, Result may be falsely increased. Vital Signs Date Time Vital Sign Value Performing Clinician Facility 08-01-2024 13:59-0400 Body height 173 cm Christina Edmonds APRN.PLIER WORKER Work Phone: [facility] 08-01-2024 13:59-0400 Body mass index (BMI) [Ratio] 22.32 kg/m2 Christina Edmonds APRN.PLIER WORKER Work Phone: [facility] 08-01-2024 13:59-0400 Body weight 66.8 kg Christina Edmonds APRN.PLIER WORKER Work Phone: [facility] 08-01-2024 13:59-0400 Diastolic blood pressure 68 mm[Hg] Christina Edmonds APRN.PLIER WORKER Work Phone: [facility] 08-01-2024 13:59-0400 Heart rate 80 /min Christina Edmonds APRN.PLIER WORKER Work Phone: [facility] 08-01-2024 13:59-0400 SaO2% (BldA) [Mass fraction] 98 % Christina Edmonds APRN.PLIER WORKER Work Phone: [facility] 08-01-2024 13:59-0400 Systolic blood pressure 120 mm[Hg] Christina Blevinsr HOLISTIC NUTRITIONIST.PLIER WORKER Work Phone: [facility] 07-19-2024 17:29-0400 Body mass index (BMI) [Ratio] 22.93 kg/m2 Gemma Saeed HOLISTIC NUTRITIONIST.PLIER WORKER Work Phone: [facility] 07-19-2024 17:29-0400 Body temperature 98.49 [degF] Gemma Saeed HOLISTIC NUTRITIONIST.PLIER WORKER Work Phone: [facility] 07-19-2024 17:29-0400 Body weight 68.4 kg Gemma Saeed HOLISTIC NUTRITIONIST.PLIER WORKER Work Phone: [facility] 07-19-2024 17:29-0400 Diastolic blood pressure 80 mm[Hg] Gemma Saeed HOLISTIC NUTRITIONIST.PLIER WORKER Work Phone: [facility] 07-19-2024 17:29-0400 Heart rate 69 /min Gemma Saeed HOLISTIC NUTRITIONIST.PLIER WORKER Work Phone: [facility] 07-19-2024 17:29-0400 Respiratory rate 18 /min Gemma Saeed HOLISTIC NUTRITIONIST.PLIER WORKER Work Phone: [facility] 07-19-2024 17:29-0400 SaO2% (BldA) [Mass fraction] 97 % Gemma Saeed HOLISTIC NUTRITIONIST.PLIER WORKER Work Phone: [facility] 07-19-2024 17:29-0400 Systolic blood pressure 122 mm[Hg] Gemma Saeed HOLISTIC NUTRITIONIST.PLIER WORKER Work Phone: [facility] 04-26-2024 14:09-0500 Body mass index (BMI) [Ratio] 22.35 kg/m2 Jose Jenkins MD Work Phone: [facility] 04-26-2024 14:09-0500 Body weight 66.68 kg Jose Jenkins MD Work Phone: [facility] 04-26-2024 14:09-0500 Diastolic blood pressure 80 mm[Hg] Jose Jenkins MD Work Phone: [facility] 04-26-2024 14:09-0500 Heart rate 111 /min Jose Jenkins MD Work Phone: [facility] 04-26-2024 14:09-0500 Respiratory rate 16 /min Jose Jenkins MD Work Phone: [facility] 04-26-2024 14:09-0500 Systolic blood pressure 130 mm[Hg] Jose Jenkins MD Work Phone: [facility] 03-14-2024 13:03-0500 Body mass index (BMI) [Ratio] 23.26 kg/m2 Christina Grey HOLISTIC NUTRITIONIST.PLIER WORKER Work Phone: [facility] 03-14-2024 13:03-0500 Body weight 69.4 kg Christina Grey HOLISTIC NUTRITIONIST.PLIER WORKER Work Phone: [facility] 03-14-2024 13:03-0500 Diastolic blood pressure 72 mm[Hg] Christina Grey HOLISTIC NUTRITIONIST.PLIER WORKER Work Phone: [facility] 03-14-2024 13:03-0500 Heart rate 76 /min Christina Grey HOLISTIC NUTRITIONIST.PLIER WORKER Work Phone: [facility] Comment on above: Apical of 80 03-14-2024 13:03-0500 Systolic blood pressure 132 mm[Hg] Christina Grey HOLISTIC NUTRITIONIST.PLIER WORKER Work Phone: [facility] 11-12-2023 13:20-0400 Body mass index (BMI) [Ratio] 22.66 kg/m2 Christina Grey HOLISTIC NUTRITIONIST.PLIER WORKER Work Phone: [facility] 11-12-2023 13:20-0400 Body weight 67.59 kg Christina Grey HOLISTIC NUTRITIONIST.PLIER WORKER Work Phone: [facility] 11-12-2023 13:20-0400 Diastolic blood pressure 60 mm[Hg] Christina Grey HOLISTIC NUTRITIONIST.PLIER WORKER Work Phone: [facility] 11-12-2023 13:20-0400 Heart rate 86 /min Christina Grey HOLISTIC NUTRITIONIST.PLIER WORKER Work Phone: [facility] 11-12-2023 13:20-0400 SaO2% (BldA) [Mass fraction] 97 % Christina Grey HOLISTIC NUTRITIONIST.PLIER WORKER Work Phone: [facility] 11-12-2023 13:20-0400 Systolic blood pressure 102 mm[Hg] Christina Grey HOLISTIC NUTRITIONIST.PLIER WORKER Work Phone: [facility] 08-13-2023 10:47-0400 Body temperature 97 [degF] Christina Grey HOLISTIC NUTRITIONIST.PLIER WORKER Work Phone: [facility] 08-13-2023 10:47-0400 Body weight 68.95 kg Christina Grey HOLISTIC NUTRITIONIST.PLIER WORKER Work Phone: [facility] 08-13-2023 10:47-0400 Diastolic blood pressure 68 mm[Hg] Christina Grey HOLISTIC NUTRITIONIST.PLIER WORKER Work Phone: [facility] 08-13-2023 10:47-0400 Heart rate 84 /min Christina Grey HOLISTIC NUTRITIONIST.PLIER WORKER Work Phone: [facility] 08-13-2023 10:47-0400 Respiratory rate 16 /min Christina Grey HOLISTIC NUTRITIONIST.PLIER WORKER Work Phone: [facility] 08-13-2023 10:47-0400 Systolic blood pressure 126 mm[Hg] Christina Grey HOLISTIC NUTRITIONIST.PLIER WORKER Work Phone: [facility] 07-20-2023 12:55-0400 Diastolic blood pressure 64 mm[Hg] Christina Grey HOLISTIC NUTRITIONIST.PLIER WORKER Work Phone: [facility] 07-20-2023 12:55-0400 Heart rate 80 /min Christina Grey HOLISTIC NUTRITIONIST.PLIER WORKER Work Phone: [facility] 07-20-2023 12:55-0400 Respiratory rate 16 /min Christina Grey HOLISTIC NUTRITIONIST.PLIER WORKER Work Phone: [facility] 07-20-2023 12:55-0400 Systolic blood pressure 98 mm[Hg] Christina Grey HOLISTIC NUTRITIONIST.PLIER WORKER Work Phone: [facility] 07-17-2023 12:12-0500 Body temperature 96.8 [degF] Rena Demetrius HOLISTIC NUTRITIONIST.PLIER WORKER Work Phone: [facility] 07-17-2023 12:12-0500 Body weight 69.2 kg Rena Edmetrius HOLISTIC NUTRITIONIST.PLIER WORKER Work Phone: [facility] 07-17-2023 12:12-0500 Diastolic blood pressure 62 mm[Hg] Rena Demetrius HOLISTIC NUTRITIONIST.PLIER WORKER Work Phone: [facility] 07-17-2023 12:12-0500 Heart rate 96 /min Rena Demetrius HOLISTIC NUTRITIONIST.PLIER WORKER Work Phone: [facility] 07-17-2023 12:12-0500 Respiratory rate 16 /min Rena Demetrius HOLISTIC NUTRITIONIST.PLIER WORKER Work Phone: [facility] 07-17-2023 12:12-0500 SaO2% (BldA) [Mass fraction] 95 % Rena Demetrius HOLISTIC NUTRITIONIST.PLIER WORKER Work Phone: [facility] 07-17-2023 12:12-0500 Systolic blood pressure 100 mm[Hg] Rena Demetrius HOLISTIC NUTRITIONIST.PLIER WORKER Work Phone: [facility] 07-12-2023 14:51-0500 Body weight 69.85 kg Christina Grey HOLISTIC NUTRITIONIST.PLIER WORKER Work Phone: [facility] 07-12-2023 14:51-0500 Diastolic blood pressure 72 mm[Hg] Christina Grey HOLISTIC NUTRITIONIST.PLIER WORKER Work Phone: [facility] 07-12-2023 14:51-0500 Heart rate 84 /min Christina Grey HOLISTIC NUTRITIONIST.PLIER WORKER Work Phone: [facility] 07-12-2023 14:51-0500 Respiratory rate 16 /min Christina Grey HOLISTIC NUTRITIONIST.PLIER WORKER Work Phone: [facility] 07-12-2023 14:51-0500 Systolic blood pressure 120 mm[Hg] Christina Grey HOLISTIC NUTRITIONIST.PLIER WORKER Work Phone: [facility] [facility] 06-22-2023 09:07-0500 Body temperature 97.5 [degF] Dr. Artur Gallardo Work Phone: [facility] 06-22-2023 09:07-0500 Diastolic blood pressure 87 mm[Hg] Dr. Artur Gallardo Work Phone: [facility] 06-22-2023 09:07-0500 Heart rate 109 /min Dr. Artur Gallardo Work Phone: [phone])[phone] [place] [address] 06-22-2023 09:07-0500 Respiratory rate 17 /min Dr. Artur Gallardo Work Phone: [phone])[phone] [place] [address] 06-22-2023 09:07-0500 SaO2% (BldA) [Mass fraction] 98 % Dr. Artur Gallardo Work Phone: [facility] 06-22-2023 09:07-0500 Systolic blood pressure 137 mm[Hg] Dr. Artur Gallardo Work Phone: 0(289)[phone] [place] [address] 06-20-2023 10:12-0500 Body height 172.[address] Artur Gallardo Work Phone: [facility] 06-20-2023 10:12-0500 Body weight 68.[address] Artur Gallardo Work Phone: [facility] 06-19-2023 20:27-0500 Body mass index (BMI) [Ratio] 22.8 kg/m2 Dr. Artur Gallardo Work Phone: [facility] 06-19-2023 12:59-0500 Body temperature 97.11 [degF] Devin Carrasquillo MD Work Phone: [facility] 06-19-2023 12:59-0500 Body weight 69.58 kg Devin Carrasquillo MD Work Phone: [facility] 06-19-2023 12:59-0500 Diastolic blood pressure 88 mm[Hg] Devin Carrasquillo MD Work Phone: [facility] 06-19-2023 12:59-0500 Heart rate 90 /min Devin Carrasquillo MD Work Phone: [facility] 06-19-2023 12:59-0500 Respiratory rate 21 /min Devin Carrasquillo MD Work Phone: [facility] 06-19-2023 12:59-0500 SaO2% (BldA) [Mass fraction] 99 % Devin Carrasquillo MD Work Phone: [facility] 06-19-2023 12:59-0500 Systolic blood pressure 130 mm[Hg] Devin Carrasquillo MD Work Phone: [facility] 02-27-2022 08:17-0400 Body weight 63.5 kg Evita Jimenez HOLISTIC NUTRITIONIST.A P MANAGER Work Phone: [facility] 02-27-2022 08:17-0400 Diastolic blood pressure 80 mm[Hg] Evita Jimenez HOLISTIC NUTRITIONIST.A P MANAGER Work Phone: [facility] 02-27-2022 08:17-0400 Heart rate 83 /min Evita Jimenez HOLISTIC NUTRITIONIST.A P MANAGER Work Phone: [facility] 02-27-2022 08:17-0400 Respiratory rate 16 /min Evita Jimenez HOLISTIC NUTRITIONIST.A P MANAGER Work Phone: [facility] 02-27-2022 08:17-0400 SaO2% (BldA) [Mass fraction] 98 % Evita Jimenez HOLISTIC NUTRITIONIST.A P MANAGER Work Phone: [facility] 02-27-2022 08:17-0400 Systolic blood pressure 122 mm[Hg] Evita Jimenez HOLISTIC NUTRITIONIST.A P MANAGER Work Phone: [facility] 02-04-2022 11:01-0400 Body temperature 97.9 [degF] Dr. Jose Corbett Work Phone: [facility] Work Phone: 02-04-2022 11:01-0400 Diastolic blood pressure 62 mm[Hg] Dr. Jose Corbett Work Phone: [facility] Work Phone: 02-04-2022 11:01-0400 Heart rate 70 /min Dr. Jose Corbett Work Phone: [facility] Work Phone: 02-04-2022 11:01-0400 Respiratory rate 12 /min Dr. Jose Corbett Work Phone: [facility] Work Phone: 02-04-2022 11:01-0400 SaO2% (BldA) [Mass fraction] 98 % Dr. [place] Corbett Work Phone: [facility] Work Phone: 02-04-2022 11:01-0400 Systolic blood pressure 106 mm[Hg] Dr. Jose Corbett Work Phone: [facility] Work Phone: 02-03-2022 00:15-0400 Body height 175.[address] [place] Corbett Work Phone: [facility] Work Phone: 02-03-2022 00:15-0400 Body mass index (BMI) [Ratio] 20.2 kg/m2 Dr. Jose Corbett Work Phone: [facility] Work Phone: 02-03-2022 00:15-0400 Body weight 62.[address] Jose Corbett Work Phone: [facility] Work Phone: 01-28-2022 16:11-0400 Body temperature 99.39 [degF] Jackie Praisler-Kameron HOLISTIC NUTRITIONIST.PLIER WORKER Work Phone: [facility] 01-28-2022 16:11-0400 Body weight 65.05 kg Jackie Praisler-Wood HOLISTIC NUTRITIONIST.PLIER WORKER Work Phone: [facility] 01-28-2022 16:11-0400 Diastolic blood pressure 82 mm[Hg] Jackie Praisler-Wood HOLISTIC NUTRITIONIST.PLIER WORKER Work Phone: [facility] 01-28-2022 16:11-0400 Heart rate 86 /min Jackie Praisler-Wood HOLISTIC NUTRITIONIST.PLIER WORKER Work Phone: [facility] 01-28-2022 16:11-0400 Respiratory rate 18 /min Jackie Praisler-Wood HOLISTIC NUTRITIONIST.PLIER WORKER Work Phone: [facility] 01-28-2022 16:11-0400 SaO2% (BldA) [Mass fraction] 95 % Jackie Praisler-Wood HOLISTIC NUTRITIONIST.PLIER WORKER Work Phone: [facility] 01-28-2022 16:11-0400 Systolic blood pressure 120 mm[Hg] Jackie Praisler-Wood HOLISTIC NUTRITIONIST.PLIER WORKER Work Phone: [facility] 01-09-2022 10:08-0400 Body temperature 97.81 [degF] Rena Demetrius HOLISTIC NUTRITIONIST.PLIER WORKER Work Phone: [facility] 01-09-2022 10:08-0400 Body weight 66.41 kg Rena Demetrius HOLISTIC NUTRITIONIST.PLIER WORKER Work Phone: [facility] 01-09-2022 10:08-0400 Diastolic blood pressure 78 mm[Hg] Rena Demetrius HOLISTIC NUTRITIONIST.PLIER WORKER Work Phone: [facility] 01-09-2022 10:08-0400 Heart rate 110 /min Rena Demetrius HOLISTIC NUTRITIONIST.PLIER WORKER Work Phone: [facility] 01-09-2022 10:08-0400 Respiratory rate 16 /min Rena Demetrius HOLISTIC NUTRITIONIST.PLIER WORKER Work Phone: [facility] 01-09-2022 10:08-0400 SaO2% (BldA) [Mass fraction] 98 % Rena Demetrius HOLISTIC NUTRITIONIST.PLIER WORKER Work Phone: [facility] 01-09-2022 10:08-0400 Systolic blood pressure 132 mm[Hg] Rena Demetrius HOLISTIC NUTRITIONIST.PLIER WORKER Work Phone: [facility] 11-27-2021 09:06-0400 Body weight 66.22 kg Evita Jimenez HOLISTIC NUTRITIONIST.A P MANAGER Work Phone: [facility] 11-27-2021 09:06-0400 Diastolic blood pressure 80 mm[Hg] Evita Jimenez HOLISTIC NUTRITIONIST.A P MANAGER Work Phone: [facility] 11-27-2021 09:06-0400 Heart rate 78 /min Evita Jimenez HOLISTIC NUTRITIONIST.A P MANAGER Work Phone: [facility] 11-27-2021 09:06-0400 Respiratory rate 16 /min Evita Jimenez HOLISTIC NUTRITIONIST.A P MANAGER Work Phone: [facility] 11-27-2021 09:06-0400 SaO2% (BldA) [Mass fraction] 98 % Evita Jimenez HOLISTIC NUTRITIONIST.A P MANAGER Work Phone: [facility] 11-27-2021 09:06-0400 Systolic blood pressure 138 mm[Hg] Evita Jimenez HOLISTIC NUTRITIONIST.A P MANAGER Work Phone: [facility] Encounters Encounter Date Encounter Type Care Provider Facility Start: 12-12-2024 ambulatory Christina Blevinsr TEAM PSYCHOLOGIST Facilit y:[facility] Start: 11-13-2024 End: 11-13-2024 ambulatory Jackie Damon MA [facility] Start: 11-13-2024 End: 11-13-2024 Patient encounter procedure Jackie Damon MA [facility] Comment on above: Population Health Na vigation Outreach ([facility] ) Start: 10-10-2024 End: 10-10-2024 ambulatory Jackie Damon MA [facility] Start: 10-10-2024 End: 10-10-2024 Patient encounter procedure Jackie Damon MA [facility] [place] Comment on above: Population Health Na vigation Outreach ([facility] Start: 10-09-2024 ambulatory Christina Grey TEAM PSYCHOLOGIST Facilit y:[facility] Start: 10-06-2024 ambulatory Christina Grey TEAM PSYCHOLOGIST Facilit y:[facility] Start: 08-28-2024 End: 08-28-2024 Refill Christina Grey HOLISTIC NUTRITIONIST.PLIER WORKER Work Phone: [facility] Comment on above: Refill Request Start: 08-17-2024 End: 08-17-2024 Telephone encounter Christina Grey HOLISTIC NUTRITIONIST.PLIER WORKER Work Phone: [facility] Comment on above: Patient Question Start: 08-07-2024 End: 08-07-2024 Telephone encounter Christina Edmonds APRN.PLIER WORKER Work Phone: [address] [place] [address] Comment on above: Patient Update Start: 08-02-2024 End: 08-04-2024 Follow-up encounter Christina Edmonds APRN.PLIER WORKER Work Phone: [facility] Start: 08-01-2024 End: 08-01-2024 ambulatory CHRISTINA EDMONDS Facility:[facility] Start: 08-01-2024 End: 08-01-2024 Patient encounter procedure Christina Edmonds APRN.PLIER WORKER Work Phone: [facility] Comment on above: Medicare annual well ness [...] 07-28-2024 End: 08-01-2024 Telephone encounter Christina Edmonds APRN.PLIER WORKER Work Phone: Internal [facility] Comment on above: Patient Update; proc ess began to get her admitted to [facility] Start: 07-24-2024 End: 07-24-2024 Refill Christina Edmonds APRN.PLIER WORKER Work Phone: [address] [place] [address] Comment on above: Erroneous encounter- disregard Medication Problem Start: 07-19-2024 End: 07-19-2024 ambulatory CHRISTINA EDMONDS Facility:[facility] Start: 07-19-2024 End: 07-19-2024 Patient encounter procedure Gemma Saeed APRN.PLIER WORKER Work Phone: [facility] Comment on above: Skin tear of lower l eg without complication, initial encounter (Primary Dx) Start: 05-23-2024 End: 07-18-2024 Telephone encounter Jose Jenkins MD Work Phone: [facility] Start: 05-17-2024 End: 05-17-2024 ambulatory CHRISTINA BLEVINSR Facility:[facility] Start: 05-17-2024 End: 05-17-2024 Nursing evaluation of patient and report Mi Nurse Work Phone: [facility] [place] Comment on above: Vitamin B 12 deficie ncy (Primary Dx) Start: 05-15-2024 End: 05-15-2024 Refill Christina Edmonds HOLISTIC NUTRITIONIST.PLIER WORKER Work Phone: [facility] Comment on above: Refill Request Start: 05-08-2024 End: 05-08-2024 ambulatory CHRISTINA BLEVINSR Facility:[facility] Start: 05-08-2024 End: 05-08-2024 Nursing evaluation of patient and report Mi Nurse Work Phone: [facility] [place] Comment on above: Vitamin B 12 deficie ncy (Primary Dx) Start: 05-01-2024 End: 05-01-2024 Nursing evaluation of patient and report Mi Nurse Work Phone: [facility] [place] Comment on above: Vitamin B 12 deficie ncy (Primary Dx) Start: 05-01-2024 End: 05-01-2024 [facility] CHRISTINA EDMONDS Facility:[facility] Start: 04-27-2024 End: 04-28-2024 Telephone encounter Jose Jenkins MD Work Phone: [facility]iatrics Comment on above: Results Orders Start: 04-26-2024 End: 04-26-2024 [facility] Facility:[facility] Start: 04-26-2024 End: 04-26-2024 Assmt & care planning pt w/cognitive impairment Jose Jenkins MD Work Phone: [facility] Comment on above: 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, unspecified dementia type (HCC) Start: 04-26-2024 End: 04-26-2024 [facility] Facility:[facility] Start: 04-25-2024 End: 04-25-2024 ambulatory DAGMAR JOSE ENRIQUE Facility:[facility] Start: 04-25-2024 End: 04-25-2024 Patient encounter procedure Dagmar Ortiz Work Phone: Podiatry Comment on above: Onychomycosis (Prima ry Dx); Pain in toe of left foot; Pain in toe of right foot Start: 03-14-2024 End: 03-14-2024 ambulatory CHRISTINA GREY Facility:[facility] Start: 03-14-2024 End: 03-14-2024 Patient encounter procedure Christina Grey HOLISTIC NUTRITIONIST.PLIER WORKER Work Phone: [facility] Comment on above: 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, unspecified dementia type (HCC) (Primary Dx); Driving safety issue; Type 2 diabetes mellitus without complication, without long-term current use of insulin ([facility]) Start: 03-10-2024 End: 03-10-2024 Refill Christina Grey HOLISTIC NUTRITIONIST.PLIER WORKER Work Phone: [facility] Comment on above: Refill Request Start: 02-10-2024 End: 02-11-2024 Refill Christina Grey HOLISTIC NUTRITIONIST.PLIER WORKER Work Phone: [facility] Comment on above: Refill Request (Plea se read Rx notes) Medication Problem Start: 02-07-2024 End: 02-08-2024 Refill Christina Grey HOLISTIC NUTRITIONIST.PLIER WORKER Work Phone: [facility] Comment on above: Refill Request Start: 01-25-2024 End: 01-25-2024 ambulatory DAGMAR ORTIZ Facility:[facility] Start: 01-25-2024 End: 01-25-2024 Patient encounter procedure Dagmar Ortiz Work Phone: Podiatry Comment on above: Onychomycosis (Prima ry Dx); Pain in toe of left foot; Pain in toe of right foot; Type 2 diabetes mellitus without complication, without long-term current use of insulin ([facility]) Start: 12-09-2023 Refill Christina Grey HOLISTIC NUTRITIONIST.PLIER WORKER Work Phone: [facility] Comment on above: Refill Request Start: 11-16-2023 Telephone encounter Christina Cleav er HOLISTIC NUTRITIONIST.PLIER WORKER Work Phone: [facility] Start: 11-12-2023 End: 11-12-2023 Patient encounter procedure Christina Grey HOLISTIC NUTRITIONIST.PLIER WORKER Work Phone: [facility] Comment on above: 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, unspecified dementia type (HCC) (Primary Dx); Type 2 diabetes mellitus without complication, without long-term current use of insulin (HCC); Acquired hypothyroidism; Encounter for therapeutic drug monitoring Start: 11-08-2023 Refill Christina Grey HOLISTIC NUTRITIONIST.PLIER WORKER Work Phone: [facility] Comment on above: Refill Request Start: 11-04-2023 Refill Christina Grey HOLISTIC NUTRITIONIST.PLIER WORKER Work Phone: [facility] Comment on above: Refill Request Start: 10-21-2023 End: 10-21-2023 Patient encounter procedure Dagmar Ortiz Work Phone: Podiatry Comment on above: Onychomycosis (Prima ry Dx); Pain in toe of left foot; Pain in toe of right foot; Type 2 diabetes mellitus without complication, without long-term current use of insulin (HCC) Refill Request Start: 09-24-2023 Telephone encounter Christina Cleav er HOLISTIC NUTRITIONIST.PLIER WORKER Work Phone: [facility] Comment on above: Medication concern Start: 08-13-2023 End: 08-13-2023 Patient encounter procedure Christina Grey HOLISTIC NUTRITIONIST.PLIER WORKER Work Phone: [facility] Comment on above: Paronychia of finger of left hand (Primary Dx); Moderate dementia with other behavioral disturbance, unspecified dementia type (HCC); Type 2 diabetes mellitus without complication, without long-term current use of insulin (HCC) Start: 08-06-2023 Refill Christina Grey HOLISTIC NUTRITIONIST.PLIER WORKER Work Phone: [facility] Comment on above: Refill Request Start: 07-27-2023 End: 07-27-2023 Patient encounter procedure Christina Grey HOLISTIC NUTRITIONIST.PLIER WORKER Work Phone: [facility] Comment on above: Paronychia of finger of left hand (Primary Dx) Start: 07-21-2023 Telephone encounter Pilar garcia HOLISTIC NUTRITIONIST.PLIER WORKER Work Phone: [facility] Start: 07-20-2023 End: 07-20-2023 Patient encounter procedure Dagmar Ariasstephen Work Phone: Podiatry Comment on above: Onychomycosis (Prima ry Dx); Type 2 diabetes mellitus without complication, without long-term current use of insulin (HCC); Pain in toe of left foot; Pain in toe of right foot; Venous insufficiency; Xerosis cutis Paronychia of finger of left hand (Primary Dx) Start: 07-17-2023 End: 07-17-2023 Patient encounter procedure Rena Romo HOLISTIC NUTRITIONIST.PLIER WORKER Work Phone: [facility] Comment on above: Paronychia of finger of left hand (Primary Dx); Infection, skin Start: 07-12-2023 End: 07-12-2023 Patient encounter procedure Christina Edmonds HOLISTIC NUTRITIONIST.PLIER WORKER Work Phone: [facility] Comment on above: 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 Manzano Work Phone: [facility] Work Phone: Start: 06-20-2023 Non-patient / Non-visit Dr. Manzano Work Phone: [facility] Work Phone: Start: 06-19-2023 End: 06-22-2023 Evaluation and management of inpatient Dr. Artur Gallardo Work Phone: [facility] Work Phone: Start: 06-19-2023 End: 06-22-[address] Artur Gallardo Work Phone: [facility] Work Phone: Start: 06-19-2023 End: 06-19-2023 Patient encounter procedure Devin Carrasquillo MD Work Phone: [facility] Comment on above: Neck pain (Primary D x) Start: 02-27-2022 End: 02-27-2022 Patient encounter procedure Evita Jimenez APRN.A P MANAGER Work Phone: [facility] Comment on above: COVID-19 virus infec tion (Primary Dx); Screening for diabetic retinopathy; Encounter for immunization; Type 2 diabetes mellitus without complication, without long-term current use of insulin (HCC); Hypercholesteremia; Acquired hypothyroidism; Syncope, unspecified syncope type; Diarrhea, unspecified type; Memory problem Start: 02-02-2022 Non-patient / Non-visit Dr. Rosa Corbett Work Phone: [facility] Start: 02-02-2022 End: 02-04-2022 Evaluation and management of inpatient Dr. Jose Corbett Work Phone: [facility] Start: 02-02-2022 End: 02-04-[address] Jose Corbett Work Phone: [facility] Work Phone: Start: 01-29-2022 Telephone encounter Devin Iglesias MD Work Phone: [facility] Comment on above: Results (COVID+) Start: 01-29-2022 End: 01-29-2022 ambulatory Evita Jimenez APRN.A P MANAGER Work Phone: [facility] Comment on above: COVID-19 virus infec tion (Primary Dx) Start: 01-29-2022 End: 01-29-2022 Telemedicine consultation with patient Evita Jimenez APRN.A P MANAGER Work Phone: [facility] Start: 01-28-2022 End: 01-28-2022 Patient encounter procedure Jackie Nunes HOLISTIC NUTRITIONIST.PLIER WORKER Work Phone: [facility] Comment on above: Close exposure to [place] VID-19 virus (Primary Dx) Start: 01-09-2022 End: 01-09-2022 Patient encounter procedure Rena Romo HOLISTIC NUTRITIONIST.PLIER WORKER Work Phone: [facility] Comment on above: Rash (Primary Dx); Skin lesion Start: 12-04-2021 Telephone encounter Evita charles HOLISTIC NUTRITIONIST.A P MANAGER Work Phone: [facility] Comment on above: Results, Lab Start: 12-02-2021 Telephone encounter Evita charles HOLISTIC NUTRITIONIST.A P MANAGER Work Phone: [facility] Comment on above: Results, Lab Start: 11-27-2021 End: 11-27-2021 Patient encounter procedure Evita Jimenez HOLISTIC NUTRITIONIST.A P MANAGER Work Phone: [facility] Comment on above: Acquired hypothyroid ism (Primary Dx); Need for shingles vaccine; Screening for diabetic retinopathy; Screening for colon cancer; Encounter for immunization; Hypercholesteremia; Type 2 diabetes mellitus without complication, without long-term current use of insulin (HCC); Memory problem; Fungal nail infection Start: 11-03-2021 ambulatory Neema Mills MA [facility] [place] Comment on above: Population Health Na vigation Outreach ([facility] ) Procedures Date Procedure Procedure Detail Performing [...] DTaP,Tdap,Td Vaccine (3 - Td or Tdap) [facility] Start: 08-01-2025 Hepatitis B surface antibody level LDL Cholesterol [facility] Start: 08-01-2025 Medicare Annual Wellness Visit Medicare Annual Wellness Visit [facility] Start: 01-08-2025 Influenza vaccination [facility] Start: 11-01-2024 Hemoglobin A1c measurement HbA1C [facility] Start: 09-11-2024 End: 09-11-2024 Patient encounter procedure [facility] Comment on above: 6 month follow up Start: 08-01-2024 End: 10-31-2024 25-hydroxyvitamin D3 [Mass/volume] in Serum or Plasma [facility] Comment on above: Expected: 08/01/2024, Expires: Start: 08-01-2024 End: 10-31-2024 Cobalamin (Vitamin B12) [Mass/volume] in Serum or Plasma [facility] Comment on above: Expected: 08/01/2024, Expires: Start: 08-01-2024 End: 10-31-2024 Comprehensive metabolic 2000 panel - Serum or Plasma [facility] Work Phone: Comment on above: Expected: 08/01/2024, Expires: Start: 08-01-2024 End: 10-31-2024 Hemoglobin A1c in Blood [facility] Comment on above: Expected: 08/01/2024, Expires: Start: 08-01-2024 End: 10-31-2024 LIPID PANEL, NONFASTING [facility] Comment on above: Expected: 08/01/2024, Expires: Start: 08-01-2024 End: 08-01-2024 Patient encounter procedure 08/01/2024 2:00 PM EDT Office Visit [facility] [address] [facility] [place] [id number] Christina Edmonds APRN.PLIER WORKER [address] [facility] [place] [address] MEDICARE WELLNESS [facility] Comment on above: MEDICARE WELLNESS Start: 07-25-2024 End: 07-25-2024 Patient encounter procedure 07/25/2024 1:45 PM EDT Office Visit Podiatry [address] [place] [address] Dagmar Ortiz [address] [address] 3 month follow up mail care Podiatry Comment on above: 3 month follow up mail care Start: 07-19-2024 Diabetic foot examination Diabetic Foot Exam [facility] Start: 07-11-2024 Hepatitis B screening Urine Albumin:Creatinine Ratio [facility] Start: 07-11-2024 Hepatitis B surface antibody level LDL Cholesterol [facility] Start: 05-24-2024 End: 05-24-2024 Nursing evaluation of patient and report 05/24/2024 2:15 PM EST Nurse Visit [facility] [address] [place] [address] Nurse, [place] [address] [place] [address] B12 [facility] Comment on above: B12 Start: 05-22-2024 End: 05-22-2024 Nursing evaluation of patient and report 05/22/2024 1:15 PM EST Nurse Visit [facility] [address] [place] [address] Nurse, [place] [address] [place] [address] B12 inj [facility] Comment on above: B12 inj Start: 05-17-2024 End: 05-17-2024 Nursing evaluation of patient and report 05/17/2024 2:15 PM EST Nurse Visit [facility] [address] [place] [address] Nurse, [place] [address] [place] [address] B12 [facility] Comment on above: B12 Start: 05-15-2024 End: 05-15-2024 Nursing evaluation of patient and report 05/15/2024 2:00 PM EST Nurse Visit [facility] [address] [place] [address] Nurse, [place] [address] [place] [address] B12 inj [facility] Comment on above: B12 inj Start: 05-10-2024 Advance Directive Discussion Advance Directive Discussion [facility] Start: 05-08-2024 End: 05-08-2024 Nursing evaluation of patient and report 05/08/2024 1:15 PM EST Nurse Visit [facility] [address] [place] [address] Nurse, [place] [address] [place] [address] B12 inj [facility] Comment on above: B12 inj Start: 05-01-2024 End: 05-01-2024 Nursing evaluation of patient and report 05/01/2024 1:30 PM EST Nurse Visit [facility] [address] [place] [address] Nurse, [place] [address] [place] [address] B12 inj [facility] Comment on above: B12 inj Start: 04-26-2024 End: 04-26-2024 Patient encounter procedure 04/26/2024 2:30 PM EST Office Visit Geriatrics [address] [place] [address] Jose Jenkins MD [address] [place] [address] Moderate dementia with other behavioral disturbance, unspecified dementia type (... Geriatrics Comment on above: Moderate dementia with other behavioral disturbance, unspecified dementia type (... Start: 04-26-2024 End: 07-26-2024 Cobalamin (Vitamin B12) [Mass/volume] in Serum or Plasma [facility] Work Phone: Comment on above: Expected: 04/26/2024, Expires: Start: 04-25-2024 End: 04-25-2024 Patient encounter procedure 04/25/2024 1:00 PM EST Office Visit Podiatry [address] [place] [address] Dagmar Ortiz [address] [place] [address] 3 month follow up Podiatry Comment on above: 3 month follow up Start: 03-28-2024 Covid-19 Vaccine ( season) Covid-19 Vaccine ( season) [facility] Start: 03-14-2024 End: 03-14-2024 Patient encounter procedure 03/14/2024 1:20 PM EST Office Visit Internal [facility] [address] [place], [place] [id number] Christina Edmonds APRN.PLIER WORKER [address] [place], [place] [address] 4 month follow up [facility] Comment on above: 4 month follow up Start: 02-12-2024 Hemoglobin A1c measurement HbA1C [facility] Start: 01-25-2024 End: 01-25-2024 Patient encounter procedure 01/25/2024 11:00 AM EDT Office Visit Podiatry [address] [place], [place] [phone] Dagmar Ortiz [address] [place], [place] [id number] 3 month follow up Podiatry Comment on above: 3 month follow up Start: 01-21-2024 Covid-19 Vaccine ( season) Covid-19 Vaccine ( season) [facility] Start: 01-09-2024 Influenza vaccination Influenza Vaccine (#1) [facility] Start: 11-12-2023 End: 02-11-2024 CBC W Auto Differential panel - Blood [facility] Work Phone: Comment on above: Expected: 11/12/2023, Expires: Start: 11-12-2023 End: 02-11-2024 Comprehensive metabolic 2000 panel - Serum or Plasma [facility] Comment on above: Expected: 11/12/2023, Expires: Start: 11-12-2023 End: 02-11-2024 Hemoglobin A1c in Blood [facility] Comment on above: Expected: 11/12/2023, Expires: Start: 11-12-2023 End: 02-11-2024 Thyrotropin [Units/volume] in Serum or Plasma [facility] Comment on above: Expected: 11/12/2023, Expires: Start: 11-12-2023 End: 02-11-2024 Thyroxine (T4) free [Mass/volume] in Serum or Plasma [facility] Comment on above: Expected: 11/12/2023, Expires: Start: 11-12-2023 End: 02-11-2024 Triiodothyronine (T3) Free [Mass/volume] in Serum or Plasma [facility] Comment on above: Expected: 11/12/2023, Expires: Start: 11-12-2023 End: 11-12-2023 Patient encounter procedure 11/12/2023 1:40 PM EDT Office Visit Internal Medicine [address] [phone] Christina Edmonds APRN.[facility] [address] [place], [place] [id number] 3 Month follow up [facility] Comment on above: 3 Month follow up Start: 10-21-2023 End: 10-21-2023 Patient encounter procedure 10/21/2023 11:00 AM EDT Office Visit Podiatry [address] [place], [place] [phone] Dagmar Ortiz [address] [place] [address] 3 month follow up Podiatry Comment on above: 3 month follow up Start: 10-12-2023 Hemoglobin A1c measurement HbA1C [facility] Start: 08-15-2023 Covid-19 Vaccine () Covid-19 Vaccine () [facility] Start: 07-17-2023 End: 10-16-2023 Bacteria identified in Wound by Culture ABSCESS AND WOUND CULTURE WITH GRAM STAIN Microbiology Routine Paronychia of finger of left hand Expected: 07/17/2023, Expires: 10/16/2023 [facility] Work Phone: Comment on above: Expected: 07/17/2023, Expires: Start: 07-12-2023 End: 10-11-2023 ALBUMIN/CREAT RATIO RND UR [facility] Work Phone: Comment on above: Expected: 07/12/2023, Expires: Start: 07-12-2023 End: 10-11-2023 CBC W Auto Differential panel - Blood [facility] Work Phone: Comment on above: Expected: 07/12/2023, Expires: Start: 07-12-2023 End: 10-11-2023 Comprehensive metabolic 2000 panel - Serum or Plasma [facility] Work Phone: Comment on above: Expected: 07/12/2023, Expires: Start: 07-12-2023 End: 10-11-2023 Hemoglobin A1c in Blood [facility] Work Phone: Comment on above: Expected: 07/12/2023, Expires: Start: 07-12-2023 End: 10-11-2023 LIPID PANEL, NONFASTING [facility] Work Phone: Comment on above: Expected: 07/12/2023, Expires: Start: 07-12-2023 End: 10-11-2023 Thyrotropin [Units/volume] in Serum or Plasma [facility] Work Phone: Comment on above: Expected: 07/12/2023, Expires: Start: 07-12-2023 End: 10-11-2023 Thyroxine (T4) free [Mass/volume] in Serum or Plasma [facility] Work Phone: Comment on above: Expected: 07/12/2023, Expires: Start: 07-12-2023 End: 10-11-2023 Triiodothyronine (T3) Free [Mass/volume] in Serum or Plasma [facility] Work Phone: Comment on above: Expected: 07/12/2023, Expires: Start: 06-22-2023 Patient discharge [facility] Start: 06-19-2023 Following clinical pathway protocol [facility] Start: 06-19-2023 Assessment of risk of venous thromboembolism [facility] Start: 06-19-2023 Care regimes management [facility] Start: 06-19-2023 Insertion of catheter into peripheral vein [facility] Start: 06-19-2023 Notification of physician [facility] Start: 06-19-2023 Providing care according to standard [facility] Start: 06-19-2023 Provision of activity privileges [facility] Start: 06-19-2023 Referral to service [facility] Start: 06-19-2023 [facility] Start: 06-19-2023 Admission procedure [facility] Start: 06-19-2023 Hospital admission, emergency, from emergency room, medical nature [facility] Start: 06-19-2023 Patient referral to dietitian [facility] Start: 06-10-2023 Covid-19 Vaccine () Covid-19 Vaccine () [facility] Start: 05-10-2023 Advance Directive Discussion Advance Directive Discussion [facility] Start: 05-10-2023 Depression Assessment Depression Assessment [facility] Start: 02-27-2023 3 comp foot exam completed DIABETIC FOOT EXAM [facility] Start: 02-27-2023 Diabetic foot examination Diabetic Foot Exam [facility] Start: 01-08-2023 Covid-19 Vaccine ( season) Covid-19 Vaccine () [facility] Start: 12-01-2022 FECAL OCCULT BLOOD FECAL OCCULT BLOOD [facility] Start: 11-27-2022 3 comp foot exam completed DIABETIC FOOT EXAM [facility] Start: 11-27-2022 Hepatitis B surface antibody level LDL CHOLESTEROL [facility] Start: 05-30-2022 Hemoglobin A1c measurement HbA1C [facility] Start: 05-30-2022 Hemoglobin A1c/Hemoglobin.total in Blood HBA1C [facility] Start: 05-11-2022 End: 02-05-2023 ALBUMIN/CREAT RATIO RND UR ALBUMIN/CREAT RATIO RND UR Lab Routine Type 2 diabetes mellitus without complication, without long-term current use of insulin (HCC) Expected: 05/11/2022 (Approximate), Expires: 02/05/2023 [facility] Work Phone: Comment on above: Expected: 05/11/2022 (Approximate), Expi res: 02/05/2023 Start: 05-11-2022 End: 02-05-2023 CBC W Auto Differential panel - Blood CBC + DIFF Lab Routine Type 2 diabetes mellitus without complication, without long-term current use of insulin (HCC) Hypercholesteremia Acquired hypothyroidism Syncope, unspecified syncope type Diarrhea, unspecified type Expected: 05/11/2022 (Approximate), Expires: 02/05/2023 [facility] Work Phone: Comment on above: Expected: 05/11/2022 (Approximate), Expi res: 02/05/2023 Start: 05-11-2022 End: 02-05-2023 Comprehensive metabolic 2000 panel - Serum or Plasma COMP METABOLIC PANEL Lab Routine Type 2 diabetes mellitus without complication, without long-term current use of insulin (HCC) Hypercholesteremia Acquired hypothyroidism Expected: 05/11/2022 (Approximate), Expires: 02/05/2023 [facility] Work Phone: Comment on above: Expected: 05/11/2022 (Approximate), Expi res: 02/05/2023 Start: 05-11-2022 End: 02-05-2023 Hemoglobin A1c in Blood HGB A1C Lab Routine Type 2 diabetes mellitus without complication, without long-term current use of insulin (HCC) Expected: 05/11/2022 (Approximate), Expires: 02/05/2023 [facility] Work Phone: Comment on above: Expected: 05/11/2022 (Approximate), Expi res: 02/05/2023 Start: 05-11-2022 End: 02-05-2023 Lipid 1996 panel - Serum or Plasma LIPID PANEL BASIC Lab Routine Type 2 diabetes mellitus without complication, without long-term current use of insulin (HCC) Hypercholesteremia Expected: 05/11/2022 (Approximate), Expires: 02/05/2023 [facility] Work Phone: Comment on above: Expected: 05/11/2022 (Approximate), Expi res: 02/05/2023 Start: 05-11-2022 SHINGRIX VACCINE (2 of 3) SHINGRIX VACCINE (2 of 3) [facility] Comment on above: Postponed from 06/06/2007 (Insurance Cov erage) Start: 02-04-2022 Patient discharge [facility] Work Phone: Start: 02-03-2022 Verification routine [facility] Work Phone: Start: 02-03-2022 Following clinical pathway protocol [facility] Work Phone: Start: 02-03-2022 Assessment of risk of venous thromboembolism [facility] Work Phone: Start: 02-03-2022 Insertion of catheter into peripheral vein [facility] Work Phone: Start: 02-03-2022 Measuring intake and output [facility] Work Phone: Start: 02-03-2022 Oxygen therapy [facility] Work Phone: Start: 02-03-2022 Patient education [facility] Work Phone: Start: 02-03-2022 Providing care according to standard [facility] Work Phone: Start: 02-03-2022 Provision of activity privileges [facility] Work Phone: Start: 02-03-2022 Referral to occupational therapist [facility] Work Phone: Start: 02-03-2022 Referral to service [facility] Work Phone: Start: 02-03-2022 [facility] Work Phone: Start: 02-03-2022 Following clinical pathway protocol [facility] Work Phone: Start: 02-02-2022 Admission procedure [facility] Work Phone: Start: 02-02-2022 [facility] Work Phone: Start: 01-28-2022 End: 02-07-2022 SARS-CoV-2 (COVID-19) RNA [Presence] in Respiratory specimen by MOLLY with probe detection ASYMPTOMATIC ELECTIVE COVID-19 Microbiology Routine Close exposure to COVID-19 virus Expected: 01/28/2022, Expires: 02/07/2022 [facility] Work Phone: Comment on above: Expected: 01/28/2022, Expires: 2 Start: 01-24-2022 Hepatitis B screening URINE ALBUMIN:CREATININE RATIO [facility] Start: 01-24-2022 Hepatitis B surface antibody level LDL CHOLESTEROL [facility] Start: 01-08-2022 Influenza vaccination [facility] Start: 11-27-2021 End: 01-27-2022 CBC W Auto Differential panel - Blood [facility] Work Phone: Comment on above: Expected: 11/27/2021, Expires: 2 Start: 11-27-2021 End: 01-27-2022 Cobalamin (Vitamin B12) [Mass/volume] in Serum or Plasma VITAMIN B12 BLOOD Lab Routine Memory problem Expected: 11/27/2021, Expires: 01/27/2022 [facility] Work Phone: Comment on above: Expected: 11/27/2021, Expires: 2 Start: 11-27-2021 End: 01-27-2022 Comprehensive metabolic 2000 panel - Serum or Plasma [facility] Work Phone: Comment on above: Expected: 11/27/2021, Expires: 2 Start: 11-27-2021 End: 01-27-2022 Hemoglobin A1c in Blood [facility] Work Phone: Comment on above: Expected: 11/27/2021, Expires: 2 Start: 11-27-2021 End: 01-27-2022 Lipid 1996 panel - Serum or Plasma [facility] Work Phone: Comment on above: Expected: 11/27/2021, Expires: 2 Start: 11-27-2021 End: 01-27-2022 Thyrotropin [Units/volume] in Serum or Plasma [facility] Work Phone: Comment on above: Expected: 11/27/2021, Expires: 2 Start: 11-27-2021 Urine microalbumin profile DTAP,TDAP,TD (2 - Td or Tdap) [facility] Comment on above: Postponed from 09/25/2020 (Insurance Cov erage) Start: 11-05-2021 End: 01-05-2022 Hemoglobin A1c in Blood HGB A1C Lab Routine Type 2 diabetes mellitus without complication, without long-term current use of insulin (HCC) Expected: 11/05/2021 (Approximate), Expires: 01/05/2022 [facility] Work Phone: Comment on above: Expected: 11/05/2021 (Approximate), Expi res: 01/05/2022 Start: 11-05-2021 End: 01-05-2022 SCHEDULE LAB TESTING SCHEDULE LAB TESTING Lab Routine Type 2 diabetes mellitus without complication, without long-term current use of insulin (HCC) Expected: 11/05/2021 (Approximate), Expires: 01/05/2022 [facility] Work Phone: Comment on above: Expected: 11/05/2021 (Approximate), Expi res: 01/05/2022 Start: 10-04-2021 COVID-19 VACCINE (5 - Booster for Pfizer series) COVID-19 VACCINE (5 - Booster for Pfizer series) [facility] Start: 07-24-2021 Hemoglobin A1c/Hemoglobin.total in Blood HBA1C [facility] Start: 05-10-2021 ADVANCE DIRECTIVE DISCUSSION ADVANCE DIRECTIVE DISCUSSION [facility] Start: 01-07-2021 3 comp foot exam completed DIABETIC FOOT EXAM [facility] Start: 01-01-2021 COVID-19 VACCINE (3 - Booster for Pfizer series) COVID-19 VACCINE (3 - Booster for Pfizer series) [facility] Start: 09-25-2020 Urine microalbumin profile [facility] Start: 12-20-2019 FECAL OCCULT BLOOD FECAL OCCULT BLOOD [facility] Start: 06-03-2019 Glaucoma screening Dilated Retinal Exam [facility] Start: 06-03-2019 Hepatitis C antibody, confirmatory test DILATED RETINAL EXAM [facility] Start: 06-06-2007 SHINGRIX VACCINE (2 of 3) SHINGRIX VACCINE (2 of 3) [facility] Hemoglobin.gastroint estin al.lower [Presence] in Stool by Immunoassay FECAL OCCULT BLOOD TEST Lab Routine Screening for colon cancer Ordered: 11/27/2021 [facility] Work Phone: Comment on above: Ordered: 11/27/2021 Patient referral [facility] Work Phone: PFIZER-BIONTECH COVI D-19 VACCINE, AGE 12+ YR ([place]) [employer]ER[employer] COVID-19 VACCINE, AGE 12+ YR ([place]) Immunization/Injection Routine Encounter for immunization Ordered: 11/27/2021 [facility] Work Phone: Comment on above: Ordered: 11/27/2021 Tdap vaccine 7 yrs/> im TDAP VAC CINE AGE 7+ IM Immunization/Injection Routine Encounter for immunization 1 Occurrences starting 02/27/2022 [facility] Work Phone: Comment on above: 1 Occurrences starting 02/27/2022 End: 07-18-2024 XR Cervical spine AP and Lateral and oblique XR CERV OTHER 4V AP/LAT/OBL Radiology Routine Neck pain 1 Occurrences starting 06/19/2023 until 07/18/2024 [facility] Work Phone: Comment on above: 1 Occurrences starting 06/19/2023 until 07/18/2024 [facility] Immunizations Immunization Date Immunization Notes Care Provider Jayda reed 01-12-2024 influenza, high dose seasonal, preservative-free Christina Edmonds APRN.PLIER WORKER Work Phone: [facility] 01-12-2024 influenza virus vaccine, unspecified formulation Jackie Damon MA [facility] 11-26-2023 COVID-19 vaccine, ag e 12+ yr (MODERNA) Christina Blevinsr HOLISTIC NUTRITIONIST.PLIER WORKER Work Phone: [facility] 10-12-2023 tetanus toxoid, redu binta diphtheria toxoid, and acellular pertussis vaccine, adsorbed Christina Blevinsr HOLISTIC NUTRITIONIST.PLIER WORKER Work Phone: [facility] 05-21-2023 respiratory syncytia l virus (RSV) vaccine, adjuvanted (AREXVY) Christina Blevinsr HOLISTIC NUTRITIONIST.PLIER WORKER Work Phone: [facility] Work Phone: 04-15-2023 COVID-19 vaccine, ag e 12+ yr, bivalent (MODERNA) Christina Blevinsr HOLISTIC NUTRITIONIST.PLIER WORKER Work Phone: [facility] Work Phone: 04-15-2023 COVID-19 vaccine, ag e 6 mo - 11 yr, season (MODERNA) Christina Blevinsr HOLISTIC NUTRITIONIST.PLIER WORKER Work Phone: [facility] 04-15-2023 influenza (HD-IIV4) vaccine, age 65+ yr, high dose, quadrivalent, PF (FLUZONE HIGH-DOSE) Christina Blevinsr HOLISTIC NUTRITIONIST.PLIER WORKER Work Phone: [facility] Work Phone: 04-15-2023 influenza virus vaccine, unspecified formulation Christina Blevinsr HOLISTIC NUTRITIONIST.PLIER WORKER Work Phone: [facility] 02-25-2022 influenza, high dose seasonal, preservative-free Evita Jimenez HOLISTIC NUTRITIONIST.A P MANAGER Work Phone: [facility] Work Phone: 08-01-2020 Covid (Pfizer) Dr. Jose jaeger Work Phone: [facility] 07-11-2020 Covid (Pfizer) Dr. Jose Coles mpawoody Work Phone: [facility] 06-28-2019 influenza, high dose seasonal, preservative-free Neema Mills MA [facility] 03-11-2018 influenza, high dose seasonal, preservative-free Neema Mills [facility] Work Phone: 12-10-2017 pneumococcal conjuga te vaccine, 13 valent Neema Mills MA [facility] 06-07-2017 influenza, high dose seasonal, preservative-free Neema Mills MA [facility] 05-12-2016 influenza, high dose seasonal, preservative-free Neema Mills MA [facility] 04-08-2011 pneumococcal polysaccharide vaccine, 23 valent Neema Mills MA [facility] 09-25-2010 tetanus toxoid, redu binta diphtheria toxoid, and acellular pertussis vaccine, adsorbed Neema Mills MA [facility] 04-11-2007 zoster vaccine, live Neema Mills [facility] NEGATED: Highlighted row has not occurred!11-27-2021 COVID-19 vaccine, age 12+ yr ([employer] - [place] [employer]) Evitajj Jimenez APRN.A P MANAGER Work Phone: [facility] Work Phone: Comment on above: Deferred: Postponed Payers Date Payer Category Payer Self-pay [id number] 2011 Private Health Insurance [employer] A ETNA MEDICARE SUPPLEMENT [id number] 2011-Present [phone] [address] [address] [place] [address] Indemnity [id number] 2011 Private Health Insurance [id number] 2011 Private Health Insurance [id number] 2005 Medicare MEDICARE MEDICAR E A AND B [id number] 2005-Present [phone] [address] [address] [place] [address] Medicare [id number] 2005 Medicare [id number] 2005 Medicare [id number] Unknown [id number] Unknown [id number] Unknown [id number] Social History Date Type Detail Facility Start: 10-30-2015 End: 01-09-2022 Tobacco smoking status NHIS Never smoked tobacco [facility] Start: 10-30-2015 End: 01-09-2022 Tobacco use and exposure Smokeless tobacco non-user [facility] Start: 02-14-2021 End: 08-13-2023 Alcohol intake Not Asked [facility] Start: 1940 Sex Assigned At Not on file [facility] Start: 11-17-2021 End: 02-27-2022 Exposure to SARS-CoV-2 (event) Not sure [facility] Work Phone: Start: 01-19-2022 End: 01-29-2022 Exposure to SARS-CoV-2 (event) Unable to assess [facility] Work Phone: Start: 02-03-2022 End: 06-19-2023 Tobacco smoking status NHIS Unknown if ever smoked [facility] Start: 02-02-2022 Non-smoker [facility] Start: 1940 Sex Assigned At Female [facility] Start: 06-19-2023 End: 07-20-2023 History of Social function [facility] Work Phone: Start: 06-19-2023 End: 07-20-2023 Tobacco use panel [facility] Work Phone: Adult Depression Screening Assessment 0 [facility] Work Phone: Start: 10-21-2023 End: 08-01-2024 Alcohol intake Lifetime non-drinker (finding) [facility] Start: 04-26-2024 Education 13 [facility] Goals Date Patient Goal Desired Activity /State Functional Status Date Assessment Result Facility 06-22-2023 Functional status Ambulates;Bathroom Priv ilege [facility] Work Phone: 02-04-2022 Functional status Bedrest [facility] Work Phone: 02-03-2022 Functional status None [facility] Work Phone: Mental Status Date Assessment Result Facility 06-22-2023 Cognitive function Voice/Name [facility] Work Phone: 02-04-2022 Cognitive function Voice/Name [facility] Work Phone: Clinical Notes 11-16-2016 to 11-13-2024 Jackie Damon MA - 11/13/2024 2:03 PM Jackie Arnett MA - 11/13/2024 1:04 PM Jackie Arnett MA - 10/10/2024 9:04 AM Christina Cuevas APRN.CNP - 08/01/2024 2:05 PM EDT Note Date & Type Note Facility 11-13-2024 Note HNO ID: [id number] Author: JACKIE DAMON MA Service: ? Author Type: Feed Management Advisor Type: Progress Notes Filed: 11/13/2024 14:07 Note [...] Damon MA November 13, 2024 2:03 PM [facility] 11-13-2024 History of Present illness Narrative POPULATION [...] 2024 1:05 PM documented in this encounter [facility] 11-13-2024 Note HNO ID: [id number] Author: JACKIE DAMON MA Service: ? Author Type: Feed Management Advisor Type: Progress Notes Filed: 11/13/2024 14:07 Note [...] Damon MA November 13, 2024 1:05 PM [facility] 11-13-2024 Note Patient Outreach (TRISTA TNAV) ALEXANDER XIAO ([id number]) 1940 F Date Time Provider Department 11/13/24 JACKIE DAMON During your visit today, we [...] Date Reviewed: 08/01/2024 Reviewed by: Christina Edmonds APRN.PLIER WORKER - Fully Assessed Reason for Visit: [...] Text Encounter Status:Closed by JACKIE DAMON on 11/13/24 [facility] 10-10-2024 Note HNO ID: [id number] Author: JACKIE DAMON MA Service: ? Author Type: Feed Management Advisor Type: Progress Notes Filed: 10/10/2024 09:13 Note Text: POPULATION HEALTH NAVIGATION OUTREACH Action/FYI Reschedule missed appt for 6 month f/u Invalid number no [employer] letter mailed Topic Due (Y or N) [...] Damon MA October 10, 2024 9:04 AM [facility] 10-10-2024 History of Present illness Narrative POPULATION [...] 2024 9:04 AM documented in this encounter [facility] 10-10-2024 Note Patient Outreach (TRISTA GASTELUMAV) ALEXANDER XIAO ([id number]) 1940 F Date Time Provider Department 10/10/24 JACKIE DAMON NETNAV During your visit today, we recorded the [...] Date Reviewed: 08/01/2024 Reviewed by: Christina Edmonds APRN.PLIER WORKER - Fully Assessed Reason for Visit: Population Health Navigation Outreach [3910] Cmt: ACO WORKBISILeeanne CASTRO PCSA Prescriptions as of 10/10/2024 - [...] Encounter Status:Closed by JACKIE DAMON on 10/10/24 [facility] 08-28-2024 Telephone encounter Note Prescription Refill Information [...] Esther Gutiérrez August 28, 2024 10:11 AM [facility] 08-28-2024 Miscellaneous Notes Prescription Refill Information [...] mouth two times a day. Esther [facility] August 28, 2024 10:11 AM documented in this encounter [facility] 08-17-2024 Telephone encounter Note Leatha with [facility] calls to review patient medications to see [...] pass information on to house doctor at [facility] to see how they want to proceed with medication management. Tamara Michelle RN [facility] 08-17-2024 Miscellaneous Notes Leatha with [facility] calls to review patient medications to see [...] pass information on to house doctor at [facility] to see how they want to proceed with medication management. Tamara Michelle RN documented in this encounter [facility] 08-07-2024 Telephone encounter Note Signed encounter form has been faxed. [facility] 08-07-2024 Miscellaneous Notes Signed encounter form has been faxed. Please send signed encounter, thanks! Patient chema Fofana calling back [facility] needs an order to discontinue the Vitamin B 12 injections. Spoke with chema Fofana gave information provided. Pt voices understanding. B12 has returned to with in normal limits, no need to continue these while in [facility], we can resume them once she follows back up with our office. Chema Fofana is calling as he received a call from [facility] in regards to the Vit B-12 inj and if patient should be getting this at [facility]. Please advise Brigido documented in this encounter [facility] 08-07-2024 Telephone encounter Note Please send signed encounter, thanks! [facility] 08-07-2024 Telephone encounter Note Patient chema Fofana calling back [facility] needs an order to discontinue the Vitamin B 12 injections. [facility] 08-07-2024 Telephone encounter Note Spoke with chema Fofana gave information provided. Pt voices understanding. [facility] 08-07-2024 Telephone encounter Note B12 has returned to with in normal limits, no need to continue these while in [facility], we can resume them once she follows back up with our office. [facility] 08-07-2024 Telephone encounter Note Chema Fofana is calling as he received a call from [facility] in regards to the Vit B-12 inj and if patient should be getting this at [facility]. Please advise Brigido [facility] 08-04-2024 Telephone encounter Note Chema Fofana aware of new order. Encounter faxed to [facility] to update their record of order. [facility] 08-04-2024 Miscellaneous Notes Nephcarmela Fofana aware of new order. Encounter faxed to [facility] to update their record of order. Please call and let family know that labs are back and most significantly show a low vitamin d level. I am sending in a vitamin D supplement for her to add to her daily medications. documented in this encounter [facility] 08-02-2024 Telephone encounter Note Please call and let family know that labs are back and most significantly show a low vitamin d level. I am sending in a vitamin D supplement for her to add to her daily medications. [facility] 08-01-2024 Note HNO ID: [id number] Author: CHRISTINA EDMONDS APRN.CNP Service: ? Author [...] surgery and is currently in rehabilitation at [facility], which has been a significant adjustment for her. Family has spoke with admissions there and has been able to arrange for her to go to [facility] for respite care and stay in a room with Robert. Alexander had a skin tear on her leg after sliding out of her ogupcqh-uw-xge's truck. The wound is reportedly improving and is not causing pain. She has been using bacitracin ointment for the wound. She has a history of low B12 and vitamin D levels. She had breakfast around 1030 today and has not yet had lunch. The patient/family consented to the use of [employer] software for draft documentation of the visit consistent with [facility]?s Notice of Privacy Practices. Her medications [...] - 07/12/2023 Hypothyroidism Hypercholesteremia Dm (Diabetes Mellitus) (Formerly [facility]) Social History Tobacco Use Smoking status: [...] acute distress. Appearan (more content not included)... [facility] 08-01-2024 History of Present illness Narrative Images [...] care team: Patient Care Team: Christina Edmonds APRN.PLIER WORKER as PCP - General (Internal Medicine) Dr. [...] surgery and is currently in rehabilitation at [facility], which has been a significant adjustment for her. Family has spoke with admissions there and has been able to arrange for her to go to [facility] for respite care and stay in a room with Robert. Alexander had a skin tear on her leg after sliding out of her eqkldvc-wp-nps's truck. The wound is reportedly improving and is not causing pain. She has been using bacitracin ointment for the wound. She has a history of low B12 and vitamin D levels. She had breakfast around 1030 today and has not yet had lunch. The patient/family consented to the use of [employer] software for draft documentation of the visit consistent with [facility] s Notice of Privacy Practices. Her [...] - 07/12/2023 Hypothyroidism Hypercholesteremia Dm (Diabetes Mellitus) (Formerly [facility]) Social History Tobacco Use Smoking status: [...] - Facilitate paperwork for respite care at [facility] to allow patient to be with her [...] Christina Edmonds APRN-RANDI documented in this encounter [facility] 08-01-2024 Instructions Christina Edmonds APRN.CNP - 08/01/2024 2:05 PM EDT Screening schedule The following prevention plan is recommended: Shingrix Vaccine(2 of 3) due on 06/06/2007 Dilated Retinal Exam due on 06/03/2019 Covid-19 Vaccine( season) due on 01/21/2024 HbA1C due on 02/12/2024 [...] review all the medicines you take, even cgeg-stt-jfnaotv medicines. As you get older, the way [...] certain medical conditions. documented in this encounter [facility] 07-31-2024 Miscellaneous Notes Ruby with [facility] calls to request most recent OV note and med list for respite stay at [facility]. Faxed to [phone] per request. Ruby aware that it is from 03/2024 but wanted it any ways to get the process started aware that patient has appt on 08/07/2024. Ruby also reports that patient will need an order that provider agrees with respite stay. Tamara Michelle RN Patient manuel Negrete calling she has started the process of having her aunt admitted to [facility]. She said needed letter and copy of last office notes from 03/2024 signed. Advised [facility] usually needs a more recent office visit note and admission orders completed. She said has appt scheduled for july with Christina. documented in this encounter [facility] 07-31-2024 Telephone encounter Note Ruby with [facility] calls to request most recent OV note and med list for respite stay at [facility]. Faxed to [phone] per request. Ruby aware that it is from 03/2024 but wanted it any ways to get the process started aware that patient has appt on 08/07/2024. Ruby also reports that patient will need an order that provider agrees with respite stay. Tamara Michelle RN [facility] 07-28-2024 Telephone encounter Note Patient manuel Negrete calling she has started the process of having her aunt admitted to [facility]. She said needed letter and copy of last office notes from 03/2024 signed. Advised [facility] usually needs a more recent office visit note and admission orders completed. She said has appt scheduled for july with Christina. [facility] 07-24-2024 Telephone encounter Note Called and spoke with pharmacist at [facility]. She asked if pt was [...] will check with pharmacy so closing encounter. [facility] 07-24-2024 Miscellaneous Notes Called and spoke with pharmacist at [facility]. She asked if pt was [...] so closing encounter. documented in this encounter [facility] 07-24-2024 Telephone encounter Note Called and spoke with pharmacist at [facility] [[email or web address] She asked if pt was taking her [...] will check with pharmacy so closing encounter. [facility] 07-24-2024 Miscellaneous Notes Called and spoke with pharmacist at [facility] [[email or web address] She asked if pt was taking her [...] same phone number so unable to leave ms. Will assume pt will check with pharmacy so closing encounter. Pt called to make sure that refill request for Levothyroxine was received from [facility] is almost out of medication and needs refill. documented in this encounter [facility] 07-24-2024 Telephone encounter Note Pt called to make sure that refill request for Levothyroxine was received from [facility] is almost out of medication and needs refill. [facility] 07-19-2024 Note HNO ID: [id number] Author: GEMMA SAEED APRN.PLIER WORKER Service: ? Author Type: Nurse Practitioner [...] BACITRACIN 500 UNIT/GRAM TOPICAL OINTMENT Gemma Saeed APRN.PLIER WORKER MDM Procedures [facility] 07-19-2024 History of Present illness Narrative Images [...] TOTAL ABDOMINAL HYSTERECT W/WO RMVL TUBE OVARY 2001 Hysterectomy, FERNANDO-BSO ALLERGIES Patient has no known [...] BACITRACIN 500 UNIT/GRAM TOPICAL OINTMENT Gemma Saeed APRN.PLIER WORKER MDM Procedures documented in this encounter [facility] 05-17-2024 Note HNO ID: [id number] Author: KILEY TAVAREZ LPN Service: ? Author Type: LICENSED NURSE Type: Progress Notes Filed: 05/17/2024 14:17 Note Text: Patient presents for B-12 injection. Denies any problems at this time. Patient instructed on any SE of medication, verbalized understanding and agreed to proceed with treatment. Tolerated injection well. Kiley Tavarez LPN [facility] 05-17-2024 History of Present illness Narrative Patient presents for B-12 injection. Denies any problems at this time. Patient instructed on any SE of medication, verbalized understanding and agreed to proceed with treatment. Tolerated injection well. Kiley Tavarez LPN documented in this encounter [facility] 05-15-2024 Telephone encounter Note OK to refill as ordered Terrance Andersen MD [facility] 05-15-2024 Miscellaneous Notes OK to refill [...] primary care: 09/11/2024 Please advise. Thank you. Dluce Dale. documented in this encounter [facility] 05-15-2024 Telephone encounter Note Patient has [...] 09/11/2024 Please advise. Thank you. Dulce Dale. [facility] 05-08-2024 Note HNO ID: [id number] Author: KILEY TAVAREZ LPN Service: ? Author Type: LICENSED NURSE Type: Progress Notes Filed: 05/08/2024 13:14 Note Text: Patient presents for B-12 injection. Denies any problems at this time. Patient instructed on any SE of medication, verbalized understanding and agreed to proceed with treatment. Tolerated injection well. Kiley Tavarez LPN [facility] 05-08-2024 History of Present illness Narrative Patient presents for B-12 injection. Denies any problems at this time. Patient instructed on any SE of medication, verbalized understanding and agreed to proceed with treatment. Tolerated injection well. Kiley Tavarez LPN documented in this encounter [facility] 05-01-2024 Note HNO ID: [id number] Author: KILEY TAVAREZ LPN Service: ? Author Type: LICENSED NURSE Type: Progress Notes Filed: 05/01/2024 13:17 Note Text: Patient presents for B-12 injection. Denies any problems at this time. Patient instructed on any SE of medication, verbalized understanding and agreed to proceed with treatment. Tolerated injection well. Kiley Tavarez LPN [facility] 05-01-2024 History of Present illness Narrative Patient presents for B-12 injection. Denies any problems at this time. Patient instructed on any SE of medication, verbalized understanding and agreed to proceed with treatment. Tolerated injection well. Kiley Tavarez LPN documented in this encounter [facility] 04-27-2024 Telephone encounter Note Patient scheduled for nurse visit 05/01/24 to receive B-[address]. [address] order at this time. Kiley Tavarez LPN [facility] 04-27-2024 Miscellaneous Notes Patient scheduled for nurse visit 05/01/24 to receive B-[address]. [address] order at this time. Kiley Tavarez LPN documented in this encounter [facility] 04-27-2024 Telephone encounter Note returned call and given provider's message below with verbalized understanding. spoke with patient and states she is agreeable. Scheduled the 4 weekly B12 inj with nurse. Pt understands after the 4 weekly shots she will go to monthly shots. [facility] 04-27-2024 Miscellaneous Notes returned call and [...] 4 weeks and then months Jose Jean-Baptiste MD documented in this encounter [facility] 04-27-2024 Telephone encounter Note Called and left a voicemail for the patient to call back and ask for a nurse to receive the providers message. [facility] 04-27-2024 Telephone encounter Note Vit b12 is on the lower side. Could be causing some of the dementia but may not all Would like for her to take vit b12 injections. I will place that order, please 1000 mcg weekly for 4 weeks and then months Jose Jean-Baptiste MD [facility] 04-26-2024 Instructions Jose Jenkins MD - 04/26/2024 3:49 PM EST Drink at least 64 ounces of water Do not drive anywhere on your own Try to get 30 mins of exercise every day documented in this encounter [facility] 04-26-2024 Note HNO ID: [id number] Author: JOSE JENKINS MD Service: ? Author Type: Physician Type: Progress Notes Filed: 04/26/2024 16:21 Note Text: [facility] Consult Alexander Xiao is a 83 year old year old female who comes for Comprehensive Geriatric Assessment. Pt accompanied by: - Robert- Caregivers involved in care: he is the main caregiver, they do not have children. They are marries 50 years. HPI: This is a 83-year-old with diabetes mellitus hypothyroidism and moderate dementia. Was diagnosed this year at [facility] with moderate dementia. She is dependent [...] place Social History: Primary language: Citizen Of [place] Marital Status: Living situation: Home w/ Spouse Socially engaged? (participates in activities such as clubs, mormonism, community center, sports, games, visiting friends/relatives, etc?): YES Go out to eat daily and do grocery shopping. Caregiver [place] and Stress Are your feeling overwhelmed? NO [...] 11/16/2016 Normal on 05/2017 labs PSHx: PAST JOHN (more content not included)... [facility] 04-26-2024 History of Present illness Narrative [facility] Initial Consult Alexander Xiao is a 83 year old year old female who comes for Comprehensive Geriatric Assessment. Pt accompanied by: - Robert- Caregivers involved in care: he is the main caregiver, they do not have children. They are marries 50 years. HPI: This is a 83-year-old with diabetes mellitus hypothyroidism and moderate dementia. Was diagnosed this year at [facility] with moderate dementia. She is dependent [...] place Social History: Primary language: Citizen Of [place] Marital Status: Living situation: Home w/ Spouse Socially engaged? (participates in activities such as clubs, mormonism, community center, sports, games, visiting friends/relatives, etc?): YES Go out to eat daily and do grocery shopping. Caregiver [place] and Stress Are your feeling overwhelmed? NO [...] , Taking? Yes, Authorizing Provider Christina Edmonds APRN.PLIER WORKER Medication metFORMIN (GLUCOPHAGE) 500 mg tablet, Sig Take 2 tablets by mouth daily with breakfast AND 1 tablet daily with dinner., Start Date 03/14/24, End Date , Taking? Yes, Authorizing Provider Christina Edmonds APRN.PLIER WORKER Medication QUEtiapine (SEROQUEL) 50 mg tablet, Sig Take 1 tablet by mouth daily at bedtime., Start Date 03/10/24, End Date , Taking? Yes, Authorizing Provider Christina Edmonds APRN.PLIER WORKER Medication levothyroxine (SYNTHROID) 112 mcg tablet, Sig Take 1 tablet by mouth once daily. For 6 days of the week., Start Date 02/11/24, End Date , Taking? Yes, Authorizing Provider Christina Edmonds APRN.PLIER WORKER Medication melatonin 10 mg tab, Sig Take 1 tablet by mouth daily at bedtime., Start Date 02/11/24, End Date , Taking? Yes, Authorizing Provider Christina Edmonds APRN.PLIER WORKER Medication busPIRone (BUSPAR) 5 mg tablet, Sig Take 1 tablet by mouth two times a day., Start Date 02/08/24, End Date , Taking? Yes, Authorizing Provider Christina Edmonds APRN.PLIER WORKER Medication simvastatin (ZOCOR) 40 mg tablet, Sig Take 1 tablet by mouth daily at bedtime., Start Date 10/21/23, End Date , Taking? Yes, Authorizing Provider Jose Corbett MD Medication Underpads 30 X 30 " pads, Sig 1 Each once daily., Start Date 07/12/23, End Date , Taking? Yes, Authorizing Provider Christina Edmonds APRN.CNP Other OTC med/supplements: no Medication Review: - ANY HIGH RISK MEDICATIONS (STOPP CRITERIA): NO ALLERGIES No Known Allergies Review of Systems Difficulty chew/swallow: no Pain: no Tremor: no Incontinence - During the last 3 months did you leak urine? NO - Type?: mixed incontinence Constipation/Change in bowel habits: NO Vision No vision problems reported Follows with credit office manager:YES Hearing - Hearing aid : Hearing impairment, [...] loss with MMSE 21/30, MOCA score of 7/30 ... Patient does have functional impairment. Cannot [...] understands and she says she goes to [employer] every day for lunch and she will [...] physical exercise and socialization Jose Jenkins MD [facility] documented in this encounter [facility] 04-25-2024 Note HNO ID: [id number] Author: DAGMAR ORTIZ, ? Service: ? Author [...] Objective: Patient presents to clinic ambulating in sneakers Vasc: DP and PT pulses are palpable [...] RTC in 3-4 months. Dagmar Ortiz DPM [facility] 04-25-2024 History of Present illness Narrative Subjective: [...] Objective: [facility] V[facility]: DP and PT pulses are palpable [...] RTC in 3-4 months. Dagmar Ortiz DPM AMB ROOMING INTAKE FLOWSHEET DATA Patient presents with: Left Foot - Established Patient, Follow Up, Diabetic Foot Care Right Foot - Established Patient, Follow Up, Diabetic Foot Care Loraine Santiago LPN documented in this encounter [facility] 04-25-2024 Note HNO ID: [id number] Author: LORAINE SANTIAGO LPN Service: ? Author Type: LICENSED NURSE Type: Progress Notes Filed: 04/25/2024 13:45 Note Text: AMB ROOMING INTAKE FLOWSHEET DATA Patient presents with: Left Foot - Established Patient, Follow Up, Diabetic Foot Care Right Foot - Established Patient, Follow Up, Diabetic Foot Care Loraine Santiago LPN [facility] 03-14-2024 Note HNO ID: [id number] Author: CHRISTINA EDMONDS APRN.PLIER WORKER Service: ? Author Type: Nurse Practitioner [...] Known Allergies ACTIVE PROBLEM LIST Moderate Dementia (Formerly [facility]) - 07/12/2023 Hypothyroidism Hypercholesteremia Dm (Diabetes Mellitus) (Formerly [facility]) Social History Tobacco Use Smoking status: [...] issues with a (more content not included)... [facility] 03-14-2024 History of Present illness Narrative SUBJECTIVE [...] Known Allergies ACTIVE PROBLEM LIST Moderate Dementia (Formerly [facility]) - 07/12/2023 Hypothyroidism Hypercholesteremia Dm (Diabetes Mellitus) (Formerly [facility]) Social History Tobacco Use Smoking status: [...] Christina Edmonds APRN-RANDI documented in this encounter [facility] 03-10-2024 Telephone encounter Note Prescription Refill [...] Loreto Stephens March 10, 2024 9:35 AM [facility] 03-10-2024 Miscellaneous Notes Prescription Refill Information [...] Loreto Stephens March 10, 2024 9:35 AM documented in this encounter [facility] 02-10-2024 Telephone encounter Note Appears patients [...] many pills. - MELATONIN 10 MG TABLET [facility] 02-10-2024 Miscellaneous Notes Appears patients melatonin [...] N/A Please return call to , Jude [phone] Was an appointment scheduled: No Closing statement: Results or non-symptom based questions: Thank you for calling [facility], your call will be returned within the next business day. Suri Ladd documented in this encounter [facility] 02-10-2024 Telephone encounter Note Patient's is calling Christina Edmonds APRN.CNP today with concern regarding Medication Problem. states that medication melatonin 10 mg tab has not been called into pharmacy. Patient takes the medication 3x/daily and is asking for a 90 day supply. Patient has been identified by name and birthdate. Duration of symptoms: N/A Please return call to Jude [phone] Was an appointment scheduled: No Closing statement: Results or non-symptom based questions: Thank you for calling [facility], your call will be returned within the next business day. Suri Ladd [facility] 02-10-2024 Telephone encounter Note Prescription Refill [...] On 11/16/23, Levothyroxine was MED UPDATE. Negar Amaya [facility] February 10, 2024 8:54 AM [facility] 02-10-2024 Miscellaneous Notes Prescription Refill Information [...] NOTE: On 11/16/23, Levothyroxine was MED UPDATE. eNgar Amaya [facility] February 10, 2024 8:54 AM documented in this encounter [facility] 02-07-2024 Telephone encounter Note Patient has [...] 03/14/2024 Please advise. Thank you. Dulce Dale. [facility] 02-07-2024 Miscellaneous Notes Patient has been [...] you. Dulce Dale. documented in this encounter [facility] 01-25-2024 Note HNO ID: [id number] Author: DAGMAR ORTIZ, ? Service: ? Author [...] Patient presents to clinic ambulating in k palest[place] tennis shoes Vasc: DP and PT pulses [...] RTC in 3-4 months. Dagmar Ortiz DPM [facility] 01-25-2024 History of Present illness Narrative Last saw pcp: 11/12/23 Subjective: Patient presents to clinic c/o painful toenails. They state that the nails are especially painful with shoe gear and pressure. Patient admits to being diabetic. No other pedal complaints at this time. Patient states no change in medications or medical history since last visit. Objective: Patient presents to clinic ambulating in k palest[place] tennis shoes Vasc: DP and PT pulses [...] care. SERENE 10/21/23 documented in this encounter [facility] 01-25-2024 Instructions Dagmar Ortiz - 01/25/2024 [...] (or decreased sensation in your feet) a technical research scientist should always cut your toenails. Be Careful [...] Go to your health care provider or technical research scientist to treat these conditions. documented in this encounter [facility] 01-25-2024 Note HNO ID: [id number] Author: RACH GATICA RN Service: ? Author Type: Registered Nurse Type: Progress Notes Filed: 01/25/2024 11:21 Note Text: Patient presents with: Left Foot - Established Patient, Follow Up, Diabetic Foot Care Right Foot - Established Patient, Follow Up, Diabetic Foot Care Patient presents for follow up diabetic foot care. SERENE 10/21/23 [facility] 12-09-2023 Telephone encounter Note Prescription Refill Information [...] Teresa Gutiérrez December 09, 2023 9:30 AM [facility] 12-09-2023 Miscellaneous Notes Prescription Refill Information [...] 2023 9:30 AM documented in this encounter [facility] 11-16-2023 Telephone encounter Note PATIENT's NOTIFIED OF SAME. [facility] 11-16-2023 Miscellaneous Notes PATIENT's NOTIFIED OF SAME. Please call and let know Alexander's blood work shows blood sugars are improving. Thyroid is now overactive, they can reduce her synthroid to 6 days a week instead of daily. Christina Edmonds APRN.CNP documented in this encounter [facility] 11-16-2023 Telephone encounter Note Please call and let know Alexander's blood work shows blood sugars are improving. Thyroid is now overactive, they can reduce her synthroid to 6 days a week instead of daily. Christina Edmonds APRN.CNP [facility] 11-12-2023 History of Present illness Narrative [...] Known Allergies ACTIVE PROBLEM LIST Moderate Dementia (Formerly [facility]) - 07/12/2023 Hypothyroidism Hypercholesteremia Dm (Diabetes Mellitus) (Formerly [facility]) Social History Tobacco Use Smoking status: [...] medications.. HIEN Whyte documented in this encounter [facility] 11-08-2023 Telephone encounter Note Prescription Refill [...] Aleah Gutiérrez November 08, 2023 8:58 AM [facility] 11-08-2023 Miscellaneous Notes Prescription Refill Information [...] 2023 8:58 AM documented in this encounter [facility] 11-04-2023 Telephone encounter Note Prescription Refill [...] Esther Gutiérrez November 04, 2023 9:27 AM [facility] 11-04-2023 Miscellaneous Notes Prescription Refill Information [...] 2023 9:27 AM documented in this encounter [facility] 10-21-2023 Telephone encounter Note The following approved medication requests have been transmitted electronically. Requested Prescriptions Signed Prescriptions Disp Refills simvastatin (ZOCOR) 40 mg tablet 90 tablet 3 Sig: Take 1 tablet by mouth daily at bedtime. Authorizing Provider: JOSE CORBETT levothyroxine (SYNTHROID) 112 mcg tablet 90 tablet 3 Sig: Take 1 tablet by mouth once daily. Authorizing Provider: JOSE CORBETT MD [facility] 10-21-2023 Miscellaneous Notes The following approved [...] requesting a change in pharmacy to the [facility] for the levothyroxine and a refill for the simvastatin. Caitlin Gutiérrez October 21, 2023 9:47 AM documented in this encounter [facility] 10-21-2023 History of Present illness Narrative [...] Objective: Patient presents to clinic ambulating in [facility] Vasc: DP and PT pulses are [...] presents for follow up diabetic foot/nail care. [facility] 07/20/23. documented in this encounter [facility] 10-21-2023 Instructions Dagmar Ortiz - 10/21/2023 [...] (or decreased sensation in your feet) a technical research scientist should always cut your toenails. Be Careful [...] Go to your health care provider or technical research scientist to treat these conditions. documented in this encounter [facility] 10-21-2023 Telephone encounter Note Prescription Refill [...] requesting a change in pharmacy to the [facility] in [place] for the levothyroxine and a refill for the simvastatin. Caitlin Gutiérrez October 21, 2023 9:47 AM [facility] 09-24-2023 Telephone encounter Note Noted and agree. [facility] 09-24-2023 Miscellaneous Notes Noted and agree. This nurse asked to call Jude b/c patient took too many pills Phoned Jude, [...] 911. Jude agreeable. documented in this encounter [facility] 09-24-2023 Telephone encounter Note This nurse asked to call Jude b/c patient took too many pills Phoned Jude, [...] Advised Jude to call 911. Jude agreeable. [facility] 08-13-2023 History of Present illness Narrative [...] Known Allergies ACTIVE PROBLEM LIST Moderate Dementia (Former[facility]) - 07/12/2023 Hypothyroidism Hypercholesteremia Dm (Diabetes Mellitus) (Former[facility]) Social History Tobacco Use Smoking status: [...] Christina Edmonds APRN-RANDI documented in this encounter [facility] 08-09-2023 Miscellaneous Notes TC to Robert/spouse, he picked up Buspar, Aricept and Seroquel 50mg today from [facility]. Patient does not need any medication refills at this time. Patient is taking Seroquel 50mg last written by Christina Edmonds TEAM PSYCHOLOGIST. is wanting PCP changed to Christina Edmonds TEAM PSYCHOLOGIST, is agreed will changed. Jael Rosales LPN [...] you. Loreto Stephens. documented in this encounter [facility] 07-27-2023 History of Present illness Narrative [...] Known Allergies ACTIVE PROBLEM LIST Moderate Dementia ([facility]) - 07/12/2023 Hypothyroidism Hypercholesteremia Dm (Diabetes Mellitus) (Former[facility]) Social History Tobacco Use Smoking status: [...] to improve, for Keep next scheduled appointment.. HIEN Whyte documented in this encounter [facility] 07-21-2023 Miscellaneous Notes Wound culture reveals bacterial growth. The sensitivity does not reveal input related to Doxycyline. Patient did follow up with Christina Edmonds yesterday. She stopped the Doxy and started Augmentin. Spoke with He states that the wound is improving. Encouraged to complete all of the ATB and follow up with Christina Edmonds. documented in this encounter [facility] 07-20-2023 Instructions Christina Edmonds APRN.CNP - 07/20/2023 1:07 PM EDT Stop the doxycycline, start Augmentin for x10 days. Soak the finger 3 times a day and apply the mupirocin. documented in this encounter [facility] 07-20-2023 History of Present illness Narrative Images from the original note were not included. SUBJECTIVE Alexander Xiao is a 82 year old female here today for a check up on her medical problems. Chief Complaint Patient presents with: [facility] care follow up HPI Alexander Xiao [...] - 07/12/2023 Hypothyroidism Hypercholesteremia Dm (Diabetes Mellitus) (Former[facility]) Social History Tobacco Use Smoking status: [...] Christina Edmonds APRN-RANDI documented in this encounter [facility] 07-20-2023 Instructions Dagmar Ortiz - 07/20/2023 [...] (or decreased sensation in your feet) a technical research scientist should always cut your toenails. Be Careful [...] Go to your health care provider or technical research scientist to treat these conditions. documented in this encounter [facility] 07-20-2023 History of Present illness Narrative [...] Objective: Patient presents to clinic ambulating in [facility] Constitutional: Pt is a well developed [...] diabetic foot exam. documented in this encounter [facility] 07-17-2023 Instructions Rena Romo APRN.CNP - [...] follow up appointment. documented in this encounter [facility] 07-17-2023 History of Present illness Narrative Images from the original note were not included. Subjective The history is provided by the patient and the spouse. No pediatric speech language pathologist was used. GILL Xiao is a 82 year old female [...] have confirmed and edited as necessary, the [facility] Review of Systems Constitutional: Negative [...] Rena Romo APRN.RANDI documented in this encounter [facility] 07-12-2023 History of Present illness Narrative [...] disturbance. Medication review completed Yes Christina Edmonds APRN.PLIER WORKER Provider Documentation: In follow-up of hospitalization, Alexander [...] information. Just recently she was admitted to [facility] and then transferred to [facility] in [place]. Admitted there on 06/22/2023 and then discharged [...] DIFF - COMP METABOLIC PANEL Christina Edmonds APRN.PLIER WORKER documented in this encounter [facility] 06-21-2023 Discharge summary Note Date/Time June 21, 2023 4:48pm [facility] Medical Records Department [address] [place] [address] Instructions for Home/Discharge Instructions 06/21/23 1648 MR#: [id number] Acct: [id number] Name: ALEXANDER XIAO Rep #:[id number] : 1940 82 From: Teddy hill DO [...] Referrals / Follow Up: Evita Jimenez NP, TEAM PSYCHOLOGIST-C [Primary Care Provider] - Disposition Disposition (needs filled in before D/C Order can be placed): Psych[facility] Hospital [facility] Unit 06/22/23 0952<Electronically signed by Teddy Turpin DO>Teddy Turpin DO CC: SAMANTHA-C Evita Jimenez; Dr. Viri Mcclelland MD ~ Signed [facility] Work Phone: 1(402) 715-736602-12-2024 Progress note Author Teddy Turpin [facility] June 21, 2023 4:47pm Note Date/Time June 21, 2023 1:27pm [facility] Medical Records Department [address] [place] [address] Progress Note - Hospitalist 06/21/23 1327 MR#: [id number] Acct: [id number] Name: ALEXANDER XIAO Rep #:[id number] : 1940 82 From: Teddy hill DO PCP: BECKY Nash Status:ADM ELAINE Location: [place] [address] Reason for Visit Reason for Visit: Diagnoses [...] Signed: Griffin Diaz MD at 12:00 EST Reading Location ID and State: [address] [place] [address] Tel , Service support , Physical Exam Const alert, no apparent [...] Patient is an 82-year-old female who presented [facility] ED on 06/19/2023 with altered mentation. 1. [...] psychiatric facility for martha-psych evaluation on 06/21. [place] slip placed. Crisis consulted. Will continue Seroquel [...] 35 minutes. Charges/Coding Visit Charges Inpatient E&M: 43626 Subs Hosp L2 06/21/23 9333 <Electronically signed by Teddy Turpin DO> Cosigner Signature (if applicable): CC: ~ Signed [facility] Work Phone: 1(222) 188-213302-12-2024 Progress note [facility] June 21, 2023 2:35pm Note Date/Time June 21, 2023 2:35pm [facility] Medical Records Department [address] [place] [address] Progress Note - Hospitalist 06/21/23 1432 MR#: [id number] Acct: [id number] Name: ALEXANDER XIAO Rep #:[id number] : 1940 82 From: Teddy hill DO PCP: BECKY Nash Status:ADM ELAINE Location: [place] [address] Hospitalist Note Patient admitted on 06/19 for [...] Cosigner Signature (if applicable): CC: ~ Signed [facility] Work Phone: 1(951) 859-562802-11-2024 Progress note Author Teddy [facility] June 20, 2023 4:52pm Note Date/Time June 20, 2023 3:46pm [facility] Medical Records Department [address] [place] [address] Progress Note - Hospitalist 06/20/23 1546 MR#: [id number] Acct: [id number] Name: ALEXANDER XIAO Rep #:[id number] : 1940 82 From: Teddy hill DO PCP: BECKY Nash Status:ADM ELAINE Location: [place] [address] Reason for Visit Reason for Visit: Diagnoses [...] % (Auto) 66.0, Lymph % (Auto) 24.3, Cay[place]% (Auto) 7.0, Eos % (Auto) 1.3, Baso [...] Clarity Clear, Urine pH 6.0, Ur Specific [place] 1.015, Urine Protein Negative, Urine Glucose (UA) [...] % (Auto) 51.1, Lymph % (Auto) 35.5, [place] % (Auto) 10.2 H, Eos % (Auto) [...] Patient is an 82-year-old female who presented [facility] ED on 06/19/2023 with altered mentation. 1. [...] 35 minutes. Charges/Coding Visit Charges Inpatient E&M: 71759 Subs Hosp L2 06/20/23 1652 <Electronically signed by Teddy Turpin DO> Cosigner Signature (if applicable): CC: ~ Signed [facility] Work Phone: 1(461) 941-119002-10-2024 History and physical note Author Viri Mcclelland [facility] June 19, 2023 7:47pm Note Date/Time June 19, 2023 7:29pm [facility] Medical Records Department [address] [facility] [place] [address] H&P Exam - Hospitalist 06/19/231924 MR#: [id number] Acct: [id number] Name: ALEXANDER XIAO Rep #:[id number] : 1940 82 From: Viri Mcclelland MD PCP: BECKY Nash Status:ADM [facility] Location: [place] [address] HPI - General General Date of Admission: 06/19/23 Date of Service: 06/19/23 Chief Complaint: AMS HPI Narrative ALEXANDER XIAO, is a Patient is an 82-year-old female history of diabetes, dementia, hypothyroidism who presented to [facility] ED 06/19/2023 with confusion. Patient has declined for several years and was sent to [facility] to see a specialist but she did [...] safe taking her home at this time. [facility] Medical History (Updated 06/19/23 @ 19:40 by [...] % (Auto) 66.0, Lymph % (Auto) 24.3, [place]% (Auto) 7.0, Eos % (Auto) 1.3, Baso [...] Clarity Clear, Urine pH 6.0, Ur Specific [place] 1.015, Urine Protein Negative, Urine Glucose (UA) [...] documentation, 58Minutes Charges/Coding Visit Charges Inpatient E&M: 28637 Init Hosp L2 06/19/231946 <Electronically signed by Viri Mcclelland MD> Cosigner Signature (if applicable): CC: SAMANTHA-C Evita Jimenez; Dr. Viri Mcclelland MD~ Signed [facility] Work Phone: 1(729) 672-688902-10-2024 Discharge summary Author Artur Gallardo [facility] June 19, 2023 6:51pm Note Date/Time June 19, 2023 4:42pm [facility] Medical Records Department [address] [place] [address] Emergency Department Summary 06/19/23 MR#: [id number] Acct: [id number] Name: ALEXANDER XIAO Rep #:[id number] : 1940 82 From: Artur Gallardo DO PCP: BECKY Nash Status:REG ER Location: ED HPI History of Present Illness Chief Complaint: Confusion Narrative Narrative: 82-year-old female with confusion. states this is a long-term thing andpaoe was seen by nurse practitioner 2 years ago and sent in to [place] to see a specialist and dementia. Patient [...] would manage these medications on her own. [facility] Medical History COVID COVID-19 Diabetes Hypothyroidism Syncope [...] % (Auto) 66.0 Lymph % (Auto) 24.3 [place] % (Auto) 7.0 Eos % (Auto) 1.3 [...] Clarity Clear Urine pH 6.0 Ur Specific [place] 1.015 Urine Protein Negative Urine Glucose (UA) [...] Provider: Evita Jimenez NP Referrals: Evita Jimenez TEAM PSYCHOLOGIST, TEAM PSYCHOLOGIST-C [Primary Care Provider] - What to do if you have Problems For any increased pain, shortness of breath, bleeding, nausea or vomiting, chestpain, or any unexpected problems, contact your Primary Care Provider. Call [facility] ([phone]) or report to the closest Emergency Room. Call 911 if necessary. 06/19/23 1851 <Electronically signed by Artur Gallardo DO> Cosigner Signature (if applicable): CC: TEAM PSYCHOLOGIST-C Evita Jimenez ~ Signed [facility] Work Phone: [phone]) 587-200102-10-2024 History of Present illness Narrative* Devin Carrasquillo [...] persists. Devin Carrasquillo MD [facility] Instructions* Patient Instructions* Evita Jimenez APRN.CNS - 02/27/2022 8:40 AM EDT Let us know if needing additional help at home or wanting to follow up with conservation enforcement officer regarding memory documented in [facility] History of Present illness Narrative* Evita [...] Video visit 01/29/2022 for Covid19. Prescribed paxlovid. [facility] 02/02/2022 for COVID-19 virus infection, dehydration, [...] Continue to note decreased memory, has declined conservation enforcement officer in the past. Prefers to not take [...] problem - ICD9: 780.93, ICD10: R41.3 Declines conservation enforcement officer / further evaluation at this time. Prefers [...] Level: 4 - Moderate documented in this encounterMer[facility] History of Present illness Narrative* Evita Jimenez APRN.CNS - 01/29/2022 1:40 PM EDT Telemedicine Follow-up for COVID-19 Infection Audio only was used for evaluation of this patient. Location of patient: [facility] Alexander Xiao is a 81 year old [...] (COVID-19). Nirmatrelvir/Ritonavir (Paxlovid) Eligibility and Patient Discussion [facility] Formulary Restriction Criteria: Adult outpatients 18 [...] 20 min in call documented in this encounterMer[facility]09-[facility]-2022 Instructions* Patient Instructions* Evita Jimenez APRN.CNS - 01/29/2022 1:06 PM [...] to your local emergency facility: Notify the hand router operator that you are seeking care for [...] you with PAXLOVID for the treatment of unfo-ky-qckhhmfg coronavirus disease (COVID-19) caused by the SARS-CoV-2 [...] virus. COVID-19 illnesses have ranged from very fluf-mx-osccrd, including illness resulting in . While information [...] is an investigational medicine used to treat ebdg-dn-sgsizlrk COVID-19 in adults and children [12 years [...] of using PAXLOVID to treat people with jzaa-fz-cpanjxat COVID-19. The FDA has authorized the emergency use of PAXLOVID for the treatment of maxn-kq-hlewygmo COVID-19in adults and children [12 years of [...] the medicines you take, including prescription and nilz-ctb-kkjgsol medicines, vitamins, and herbal supplements. Some medicines [...] (remdesivir) is FDA-approved for the treatment of xenp-ki-cgawnxfq COVID-19 in certain adults and children. Talk with your doctor to see if Veklury is appropriate for you. Like PAXLOVID, FDA may also allow for the emergency use of other medicines to treat people with COVID-19. Go to https://www.fda.gov/kwcohmrja-kbpsqtouwnrw-yvghgjykfbj/bdn-niveq-pioflpoejo-and- policy-framework/ghytcxypy-jni-ijfhvnlojaziy for information on the emergency use of [...] if I am or ? There is educational technology specialist treating women or mothers with PAXLOVID. For [...] to FDA MedWatch at www.fda.gov/medwatch or call 7-518-CPD7676 or you can reportside effects to [employer]. at the contact information provided below. Website Fax number Telephone number wwwHuodongxing How should I store PAXLOVID? Store PAXLOVID [...] (EUA). The EUA is supported by a Intelligence Agent of Health and Human Service (HHS) declaration that circumstances exist to justify the emergency use of drugs and biological productsduring the COVID-19 pandemic. PAXLOVID for the treatment of jqtm-eq-kreaynzb COVID-19 in adults and children [12 years [...] telephone number provided below. Website Telephone number wwwPresdo (0-695-W22-PACK) You can also go to www.Nuvosun.Setup or call for more information. Pfizer Distributed by [employer] [place] [address] [id number] Revised: 25 July 2021 documented in this encounterMer[facility]09-[facility]-2022 Miscellaneous Notes* Telephone Encounter - Camilla [...] symptoms; ER if severe. documented in this encounterMercy [facility]09-21-2022 History of Present illness Narrative* Jackie Nunes APRN.PLIER WORKER - 01/28/2022 4:26 PM EDT Subjective [...] COVID-19 Jackie Nunes APRN.CNP documented in this encounterMercy [facility]09-21-2022 Instructions* Patient Instructions* Jackie Nunes APRN.CNP [...] are not readily available, use a hand parts clerk plant maintenance that contains at least 60% alcohol. Cover [...] that you do not come to any [facility] facility without calling your primary care physician or speaking to a provider using a virtual visit using [facility] Evolver. You will be evaluated to determine if you require being seen in person or if you meet CDC guidelines for testing for COVID-19 based on symptoms, travel and exposures. If you meet criteria for testing, your [employer] provider or primary care physician will [...] at least 30 days of prescription medications, eknj-wrg-haqyvby medicines, and supplies on hand in case [...] youwant to harm yourself or others: Call 331 if you feel like you want to harm yourself or others Visit the Disaster Distress Helpline [place] , [place] [address] Visit the National Domestic Violence Hotline or call and TTY Visit the National Suicide Prevention Lifeline or call and TTY or text Most importantly, don't panic. By following basic prevention measures such as hand hygiene and cover your cough, you are helping to keep yourself and others healthy. Additional information can be found on the CDC and [facility] web sites: https://www.cdc.gov/coronavirus/2019-nCoV/index.html https://[facility].org/coronavirus Beginning Home Isolation Isolation is used to [...] to your local emergency facility: Notify the hand router operator that you are seeking care for [...] or concerning to you. documented in this encounterMer[facility]09-02-2022 Instructions* Patient Instructions* Rena Romo APRN.CNP [...] Dermatology if no improvement documented in this encounterMercy Health [facility] Hospital09-02-2022 History of Present illness Narrative* Rena Romo APRN.CNP - 01/09/2022 10:25 AM EDT Images from the original note were not included. Subjective The history is provided by the patient and the spouse. No pediatric speech language pathologist was used. GILL Xiao is a 81 [...] have confirmed and edited as necessary, the [facility] Review of Systems Constitutional: Negative [...] evaluation. Rena Romo APRN.CNP documented in this encounterMercy Health [facility] Hospital07-28-2022 Miscellaneous Notes* Telephone Encounter - Lashay Quinones Ma - 12/04/2021 1:53 PM EDT Letter mailed to pt notifying her of normal stool test. If questions to contact the office. Lashay Quinones Ma * Telephone Encounter - Evita Jimenez APRN.CNS - 12/04/2021 1:46 PM EDT Please let her know fecal occult blood testing was negative documented in this encounterMercy Health [facility] Hospital07-26-2022 Miscellaneous Notes* Telephone Encounter - Delilah [...] Abs Lymph 1.00 - 4.00 k/uL 1.87 Cayuga% % 9.5 Abs Cay[place] <0.87 k/uL 0.52 Eosin% % 2.9 Abs [...] - 80.0 ng/mL 42.6 documented in this encounterMercy Health Lor[facility] Hospital07-21-2022 History of Present illness Narrative* Evita [...] is. States sees routinely. Does not see technical research scientist. Hyperlipidemia. Ms. Xiao reports doing well on [...] Level: 4 - Moderate documented in this encounterMercy [facility] Hospital07-21-2022 Instructions* Patient Instructions* Evita Jimenez APRN.CNS - 11/27/2021 9:13 AM EDT Check to see if your insurance covers Tdap and shingles vaccine and what location to get the vaccine usually best covered at your local pharmacy where you get prescriptions filled documented in this encounterMercy [facility] Hospital06-27-2022 History of Present illness Narrative* Neema Mills MA - 11/03/2021 1:11 PM EDT POPULATION HEALTH NAVIGATION OUTREACH Action/FYI Dr. Corbett, the following orders have elfego pended for you to review and file: Pended Orders ID Status Description Pended By When Reason [id number] Pended HGB A1C Neema Mills MA 11/03/21 1317 [id number] Pended SCHEDULE LAB TESTING Neema Mills MA 11/03/21 1317 Patient is on [facility] list for below gaps and needs appt to address : E11.9 - DM (diabetes mellitus) (HCC) - [id number] Last Billed 01/08/2020
Appointment type needed: Annual [...] 03, 2021 1:11 PM documented in this encounterMercy Health [facility] Hospital07-10-2017 History of Past illness Narrative* Problem Noted Date Resolved Date Serum calcium elevated 11/16/2016 8 Overview: Normal on 05/2017 labs documented as of this encounter (statuses as of 11/05/2021) [address]10-2017 History of Past illness Narrative* Problem Noted Date Resolved Date Serum calcium elevated 11/16/2016 8 Overview: Normal on 05/2017 labs documented as of this encounter (statuses as of 11/27/2021) [address]10-2017 History of Past illness Narrative* Problem Noted Date Resolved Date Serum calcium elevated 11/16/2016 8 Overview: Normal on 05/2017 labs documented as of this encounter (statuses as of 12/02/2021) [address]10-2017 History of Past illness Narrative* Problem Noted Date Resolved Date Serum calcium elevated 11/16/2016 8 Overview: Normal on 05/2017 labs documented as of this encounter (statuses as of 12/04/2021) [address]10-2017 History of Past illness Narrative* Problem Noted Date Resolved Date Serum calcium elevated 11/16/2016 8 Overview: Normal on 05/2017 labs documented as of this encounter (statuses as of 01/09/2022) [place] [address]-10-2017 History of Past illness Narrative* Problem Noted Date Resolved Date Serum calcium elevated 11/16/2016 8 Overview: Normal on 05/2017 labs documented as of this encounter (statuses as of 01/28/2022) [address]10-2017 History of Past illness Narrative* Problem Noted Date Resolved Date Serum calcium elevated 11/16/2016 8 Overview: Normal on 05/2017 labs documented as of this encounter (statuses as of 01/29/2022) [address]-2017 History of Past illness Narrative* Problem Noted Date Resolved Date Serum calcium elevated 11/16/2016 8 Overview: Normal on 05/2017 labs documented as of this encounter (statuses as of 01/29/2022) [address]-2017 History of Past illness Narrative* Problem Noted Date Resolved Date Serum calcium elevated 11/16/2016 8 Overview: Normal on 05/2017 labs documented as of this encounter (statuses as of 02/27/2022) [address]-2017 History of Past illness Narrative* Problem Noted Date Diagnosed Date Resolved Date Serum calcium elevated 11/16/201612/10 Overview: Normal on 05/2017 labs documented as of this encounter (statuses as of 06/19/2023) [address]-2017 History of Past illness Narrative* Problem Noted Date Diagnosed Date Resolved Date Serum calcium elevated 11/16/201612/10 Overview: Normal on 05/2017 labs documented as of this encounter (statuses as of 07/12/2023) [address]-2017 History of Past illness Narrative* Problem Noted Date Diagnosed Date Resolved Date Serum calcium elevated 11/16/201612/10 Overview: Normal on 05/2017 labs documented as of this encounter (statuses as of 07/17/2023) [address]-2017 History of Past illness Narrative* Problem Noted Date Diagnosed Date Resolved Date Serum calcium elevated 11/16/201612/10 Overview: Normal on 05/2017 labs documented as of this encounter (statuses as of 07/20/2023) [address]-2017 History of Past illness Narrative* Problem Noted Date Diagnosed Date Resolved Date Serum calcium elevated 11/16/201612/10 Overview: Normal on 05/2017 labs documented as of this encounter (statuses as of 07/21/2023) [address]-2017 History of Past illness Narrative* Problem Noted Date Diagnosed Date Resolved Date Serum calcium elevated 11/16/201612/10 Overview: Normal on 05/2017 labs documented as of this encounter (statuses as of 07/21/2023) [place] [id number] History of Past illness Narrative* Problem Noted Date Diagnosed Date Resolved Date Serum calcium elevated 11/16/201612/10 Overview: Normal on 05/2017 labs documented as of this encounter (statuses as of 07/27/2023) [address]-2017 History of Past illness Narrative* Problem Noted Date Diagnosed Date Resolved Date Serum calcium elevated 11/16/201612/10 Overview: Normal on 05/2017 labs documented as of this encounter (statuses as of 08/16/2023) [address]2017 History of Past illness Narrative* Problem Noted Date Diagnosed Date Resolved Date Serum calcium elevated 11/16/201612/10 Overview: Normal on 05/2017 labs documented as of this encounter (statuses as of 08/13/2023) [facility]* Chief Complaint SYNCOPAL EPISODE SYNCOPAL EPISODE Reason for Visit COVID COVID-19 Dehydration Diarrhea Syncope [facility] Work Phone: Consult note Author Shayna Mayberry [facility] June 22, 2023 10:01am Note Date/Time June 22, 2023 10:01am [facility] Medical Records Department [address] [place] [address] Counseling Note - Pharmacy 06/22/23 1001 MR#: [id number] Acct: [id number] Name: ALEXANDER XIAO Rep #:[id number] : 1940 82 From: Shayna Mayberry PCP: BECKY Nash Status:ADM ELAINE Y Location: [place] [address] Pharmacy [place] Med Reconciliation Pharmacy Service has performed discharge [...] Signature (if applicable): Date CC: ~ Signed [facility] Work Phone: Evaluation note* Diagnosis Type 2 diabetes mellitus without complication, without long-term current use of insulin (HCC)- Primary [facility] Diagnosis Acquired hypothyroidism- Primary Unspecified [...] complication, without long-term current use of insulin ([facility]) Memory problem Memory loss Fungal nail infection Dermatophytosis of nail [facility] Diagnosis Rash- Primary Rash and other nonspecific skin eruption Skin lesion Unspecified disorder of skin and subcutaneous tissue [facility] Diagnosis Close exposure to COVID-19 virus- Primary [facility] Diagnosis COVID-19 virus infection- Primary [facility] Diagnosis Onset Date Resolution Status COVID acute COVID-19 acute Dehydration acute Diarrhea acute Syncope acute [facility] Work Phone: Evaluation note* Diagnosis COVID-19 virus infection- Primary Screening for diabetic retinopathy Screening for other eye conditions Encounter for immunization Need for other specified prophylactic vaccination against single bacterial disease Type 2 diabetes mellitus without complication, without long-term current use of insulin ([facility]) Hypercholesteremia Pure hypercholesterolemia Acquired hypothyroidism Unspecified hypothyroidism Syncope, unspecified syncope type Diarrhea, unspecified type Memory problem Memory loss [facility]* Diagnosis Neck pain- Primary Cervicalgia [facility]* Diagnosis Onset Date Resolution Status AMS (altered mental status) acute Diabetes acute Hypothyroidism acute [facility] Work Phone: Evaluation note* Diagnosis Moderate dementia with other behavioral disturbance, unspecified dementia type (HCC)- Primary Hospital discharge follow-up Other follow-up examination Type 2 diabetes mellitus without complication, without long-term current use of insulin (HCC) Hypercholesteremia Pure hypercholesterolemia Acquired hypothyroidism Unspecified hypothyroidism Nocturnal enuresis Encounter for therapeutic drug monitoring [facility]* Diagnosis Paronychia of finger of left hand- Primary Infection, skin Unspecified local infection of skin and subcutaneous tissue [facility]* Diagnosis Onychomycosis- Primary Dermatophytosis of nail Type 2 diabetes mellitus without complication, without long-term current use of insulin ([facility]) Pain in toe of left foot Pain in limb Pain in toe of right foot Pain in limb Venous insufficiency Unspecified venous (peripheral) insufficiency Xerosis cutis Other specified disease of sebaceous glands [facility] Paronychia of finger of left hand- Primary [facility] Diagnosis Paronychia of finger of left hand- Primary [facility] Diagnosis Moderate dementia with other behavioral disturbance, unspecified dementia type (HCC) [facility]* Diagnosis Onychomycosis- Primary Dermatophytosis of nail Pain in toe of left foot Pain in limb Pain in toe of right foot Pain in limb Type 2 diabetes mellitus without complication, without long-term current use of insulin (HCC) [facility]* Diagnosis Acquired hypothyroidism Unspecified hypothyroidism [facility] Diagnosis Moderate dementia with other behavioral disturbance, unspecified dementia type (HCC) [facility]* Diagnosis Moderate dementia with other behavioral disturbance, unspecified dementia type (HCC)- Primary Type 2 diabetes mellitus without complication, without long-term current use of insulin (HCC) Acquired hypothyroidism Unspecified hypothyroidism Encounter for therapeutic drug monitoring [facility]* Diagnosis Acquired hypothyroidism Unspecified hypothyroidism [facility] Diagnosis Type 2 diabetes mellitus without complication, without long-term current use of insulin (HCC) [facility]* Diagnosis Onychomycosis- Primary Dermatophytosis of nail Pain in toe of left foot Pain in limb Pain in toe of right foot Pain in limb Type 2 diabetes mellitus without complication, without long-term current use of insulin (HCC) [facility]* Diagnosis Acquired hypothyroidism Unspecified hypothyroidism [facility] Diagnosis Moderate dementia with other behavioral disturbance, unspecified dementia type (HCC) [facility] Diagnosis Paronychia of finger of left hand- Primary Moderate dementia with other behavioral disturbance, unspecified dementia type (HCC) Type 2 diabetes mellitus without complication, without long-term current use of insulin (HCC) [facility]* Diagnosis Moderate dementia with other behavioral disturbance, unspecified dementia type (HCC)- Primary Driving safety issue Other specified personal history presenting hazards to health Type 2 diabetes mellitus without complication, without long-term current use of insulin (HCC) [facility]* Diagnosis Onychomycosis- Primary Dermatophytosis of nail Pain in toe of left foot Pain in limb Pain in toe of right foot Pain in limb [facility] Diagnosis Moderate dementia with other behavioral disturbance, unspecified dementia type (HCC) [facility]* Diagnosis Vitamin B12 deficiency- Primary Other B-complex deficiencies [facility]* Diagnosis Vitamin B 12 deficiency- Primary Other B-complex deficiencies [facility]* Diagnosis Vitamin B 12 deficiency- Primary Other B-complex deficiencies [facility]* Diagnosis Vitamin B 12 deficiency- Primary Other B-complex deficiencies [facility]* Diagnosis Vitamin B 12 deficiency- Primary Other B-complex deficiencies [facility]* Diagnosis Skin tear of lower leg without complication, initial encounter- Primary [facility]* Diagnosis Medicare annual wellness visit, subsequent- Primary Routine general medical examination at a [facility] care facility Moderate dementia with other behavioral [...] right, subsequent encounter [facility]* Diagnosis Vitamin D deficiency- Primary Unspecified vitamin D deficiency [facility]* Diagnosis Moderate dementia with other behavioral disturbance, unspecified dementia type (HCC) [facility]* Diagnosis Type 2 diabetes mellitus without complication, without long-term current use of insulin (HCC)- Primary documented in this encounter [facility] for referral (narrative)* Diagnostic Procedure Only (Routine) - Pending Review Specialty Diagnoses / Procedures Referred By Lopez bruner Referred To Contact XR IMAGING Diagnoses Neck pain Procedures XR CERV OTHER 4V AP/LAT/OBL RADEX SPINE CERVICAL 4 OR 5 VIEWS Devin Carrasquillo MD [address] [place] [address] [facility] [id number] Referral ID Status Reason Start Date Expiration Date Visits Requested Visits Authorized [id number] Pending Review Auto-Generat ed Referral 06/19/2023 07/18/2024 1 1 [facility] Advance Directives No Advanced Directives Records FoundDocuments on File Type Date Recorded Patient Candle Wrapper Expl anation Advance Directive(s) 11/28/2014 4:19 PM Documents on File Type Date Recorded Patient Candle Wrapper Expl anation Advance Directive(s) 11/28/2014 4:19 PM Advance Directive Response Recorded Date/ Time Name of Medical Power of Beater [place] Graham [email or web address] February 03, 2022 12:15am Living Will Yes February 03, 2022 12:15am Power of [place] Yes January 12:15am Advance Directive Response Recorded Date/ Time Living Will Yes June 19 8:27pm Power of [place] No June 19, 2023 8:27pm Reason for Referral Specialty Diagnoses / Procedures Referred By Contac t Referred To Contact Podiatry Diagnoses Type 2 diabetes mellitus without complication, without long-term current use of insulin (HCC) Fungal nail infection Procedures CONSULT TO PODIATRY OFFICE/OUTPATIENT [facility] 60-74 MINUTES Evita Jimenez, HOLISTIC NUTRITIONIST.A P MANAGER [address] [place] [address] Referral ID Status Reason Start Date Expiration Date Visits Requested Visits Authorized [id number] Authorized PCP Requested Referral 11/27/2021 11/27/2022 1 1 Specialty Diagnoses / Procedures Referred By Contac t Referred To Contact Ophthalmology Diagnoses Type 2 diabetes mellitus without complication, without long-term current use of insulin (HCC) Procedures CONSULT TO OPHTHALMOLOGY OFFICE/OUTPATIENT [facility] 60-74 MINUTES Evita Jimenez, HOLISTIC NUTRITIONIST.A P MANAGER [address] [place] [address] Referral ID Status Reason Start Date Expiration Date Visits Requested Visits Authorized [id number] Authorized PCP Requested Referral 11/27/2021 11/27/2022 1 1 Specialty Diagnoses / Procedures Referred By Contac t Referred To Contact Gerontology Diagnoses Memory problem Procedures CONSULT TO GERIATRICS OFFICE/OUTPATIENT [facility] 60-74 MINUTES Evita Jimenez, HOLISTIC NUTRITIONIST.A P MANAGER [address] [place] [address] Referral ID Status Reason Start Date Expiration Date Visits Requested Visits Authorized [id number] Authorized PCP Requested Referral 11/27/2021 11/27/2022 1 1 Specialty Diagnoses / Procedures Referred By Contac t Referred To Contact Ophthalmology Diagnoses Screening for diabetic retinopathy Procedures CONSULT TO OPHTHALMOLOGY OFFICE/OUTPATIENT [facility] 60-74 MINUTES Evita Jimenez, HOLISTIC NUTRITIONIST.A P MANAGER [address] [place] [address] Referral ID Status Reason Start Date Expiration Date Visits Requested Visits Authorized [id number] Authorized PCP Requested Referral 02/27/2023 1 1 Specialty Diagnoses / Procedures Referred By Contac t Referred To Contact Podiatry Diagnoses Type 2 diabetes mellitus without complication, without long-term current use of insulin (HCC) Procedures CONSULT TO PODIATRY OFFICE/OUTPATIENT [facility] 60 MINUTES Christina Edmonds APRN.[facility] [address] [place] [address] Referral ID Status Reason Start Date Expiration Date Visits Requested Visits Authorized [id number] Authorized PCP Requested Referral 07/12/2023 07/11/2024 1 1 Specialty Diagnoses / Procedures Referred By Contac t Referred To Contact Gerontology Diagnoses Moderate dementia with other behavioral disturbance, unspecified dementia type (HCC) Procedures CONSULT TO GERIATRICS OFFICE/OUTPATIENT [facility] 60 MINUTES Christina Edmonds, HOLISTIC NUTRITIONIST.PLIER WORKER [address] [place] [address] Referral ID Status Reason Start Date Expiration Date Visits Requested Visits Authorized [id number] Authorized PCP Requested Referral 03/14/2024 03/14/2025 1 1 Health Concerns Infection Onset Date Last Indicated Resolved Time COVID-19 Rule-Out 01/28/2022 01/28/2022 Infection Onset Date Last Indicated Resolved Time COVID-19 Rule-Out 01/28/2022 01/28/202201/2901/29/2022 5:56 AM EDT COVID-19 Confirmed 01/28/2022 01/28/2022 [...] or prosecute any alcohol or drug abuse patient.[facility] the event this information is protected by the Federal Confidentiality of Alcohol and Drug Abuse Patient Records regulations: The Federal rules restrict any use of the information to criminally investigate or prosecute any alcohol or drug abuse patient.[facility] HospitalIn the event this information is protected by the Federal Confidentiality of Alcohol and Drug Abuse Patient Records regulations: The Federal rules restrict any use of the information to criminally investigate or prosecute any alcohol or drug abuse patient.[facility] HospitalIn the event this information is protected by the Federal Confidentiality of Alcohol and Drug Abuse Patient Records regulations: The Federal rules restrict any use of the information to criminally investigate or prosecute any alcohol or drug abuse patient.[facility] HospitalIn the event this information is protected by the Federal Confidentiality of Alcohol and Drug Abuse Patient Records regulations: The Federal rules restrict any use of the information to criminally investigate or prosecute any alcohol or drug abuse patient.[facility] HospitalIn the event this information is protected by the Federal Confidentiality of Alcohol and Drug Abuse Patient Records regulations: The Federal rules restrict any use of the information to criminally investigate or prosecute any alcohol or drug abuse patient.[facility] HospitalIn the event this information is protected by the Federal Confidentiality of Alcohol and Drug Abuse Patient Records regulations: The Federal rules restrict any use of the information to criminally investigate or prosecute any alcohol or drug abuse patient.[facility] HospitalIn the event this information is protected by the Federal Confidentiality of Alcohol and Drug Abuse Patient Records regulations: The Federal rules restrict any use of the information to criminally investigate or prosecute any alcohol or drug abuse patient.[facility] HospitalIn the event this information is protected by the Federal Confidentiality of Alcohol and Drug Abuse Patient Records regulations: The Federal rules restrict any use of the information to criminally investigate or prosecute any alcohol or drug abuse patient.[facility] HospitalIn the event this information is protected by the Federal Confidentiality of Alcohol and Drug Abuse Patient Records regulations: The Federal rules restrict any use of the information to criminally investigate or prosecute any alcohol or drug abuse patient.[facility] HospitalIn the event this information is protected by the Federal Confidentiality of Alcohol and Drug Abuse Patient Records regulations: The Federal rules restrict any use of the information to criminally investigate or prosecute any alcohol or drug abuse patient.[facility] HospitalIn the event this information is protected by the Federal Confidentiality of Alcohol and Drug Abuse Patient Records regulations: The Federal rules restrict any use of the information to criminally investigate or prosecute any alcohol or drug abuse patient.[facility] HospitalIn the event this information is protected by the Federal Confidentiality of Alcohol and Drug Abuse Patient Records regulations: The Federal rules restrict any use of the information to criminally investigate or prosecute any alcohol or drug abuse patient.[facility] HospitalIn the event this information is protected by the Federal Confidentiality of Alcohol and Drug Abuse Patient Records regulations: The Federal rules restrict any use of the information to criminally investigate or prosecute any alcohol or drug abuse patient.[facility] HospitalIn the event this information is protected by the Federal Confidentiality of Alcohol and Drug Abuse Patient Records regulations: The Federal rules restrict any use of the information to criminally investigate or prosecute any alcohol or drug abuse patient.[facility] HospitalIn the event this information is protected by the Federal Confidentiality of Alcohol and Drug Abuse Patient Records regulations: The Federal rules restrict any use of the information to criminally investigate or prosecute any alcohol or drug abuse patient.[facility] HospitalIn the event this information is protected by the Federal Confidentiality of Alcohol and Drug Abuse Patient Records regulations: The Federal rules restrict any use of the information to criminally investigate or prosecute any alcohol or drug abuse patient.[facility] HospitalIn the event this information is protected by the Federal Confidentiality of Alcohol and Drug Abuse Patient Records regulations: The Federal rules restrict any use of the information to criminally investigate or prosecute any alcohol or drug abuse patient.[facility] HospitalIn the event this information is protected by the Federal Confidentiality of Alcohol and Drug Abuse Patient Records regulations: The Federal rules restrict any use of the information to criminally investigate or prosecute any alcohol or drug abuse patient.[facility] HospitalIn the event this information is protected by the Federal Confidentiality of Alcohol and Drug Abuse Patient Records regulations: The Federal rules restrict any use of the information to criminally investigate or prosecute any alcohol or drug abuse patient.[facility] HospitalIn the event this information is protected by the Federal Confidentiality of Alcohol and Drug Abuse Patient Records regulations: The Federal rules restrict any use of the information to criminally investigate or prosecute any alcohol or drug abuse patient.[facility] HospitalIn the event this information is protected by the Federal Confidentiality of Alcohol and Drug Abuse Patient Records regulations: The Federal rules restrict any use of the information to criminally investigate or prosecute any alcohol or drug abuse patient.[facility] HospitalIn the event this information is protected by the Federal Confidentiality of Alcohol and Drug Abuse Patient Records regulations: The Federal rules restrict any use of the information to criminally investigate or prosecute any alcohol or drug abuse patient.[facility] HospitalIn the event this information is protected by the Federal Confidentiality of Alcohol and Drug Abuse Patient Records regulations: The Federal rules restrict any use of the information to criminally investigate or prosecute any alcohol or drug abuse patient.[facility] HospitalIn the event this information is protected by the Federal Confidentiality of Alcohol and Drug Abuse Patient Records regulations: The Federal rules restrict any use of the information to criminally investigate or prosecute any alcohol or drug abuse patient.[facility] HospitalIn the event this information is protected by the Federal Confidentiality of Alcohol and Drug Abuse Patient Records regulations: The Federal rules restrict any use of the information to criminally investigate or prosecute any alcohol or drug abuse patient.[facility] HospitalIn the event this information is protected by the Federal Confidentiality of Alcohol and Drug Abuse Patient Records regulations: The Federal rules restrict any use of the information to criminally investigate or prosecute any alcohol or drug abuse patient.[facility] HospitalIn the event this information is protected by the Federal Confidentiality of Alcohol and Drug Abuse Patient Records regulations: The Federal rules restrict any use of the information to criminally investigate or prosecute any alcohol or drug abuse patient.[facility] HospitalIn the event this information is protected by the Federal Confidentiality of Alcohol and Drug Abuse Patient Records regulations: The Federal rules restrict any use of the information to criminally investigate or prosecute any alcohol or drug abuse patient.[facility] HospitalIn the event this information is protected by the Federal Confidentiality of Alcohol and Drug Abuse Patient Records regulations: The Federal rules restrict any use of the information to criminally investigate or prosecute any alcohol or drug abuse patient.[facility] HospitalIn the event this information is protected by the Federal Confidentiality of Alcohol and Drug Abuse Patient Records regulations: The Federal rules restrict any use of the information to criminally investigate or prosecute any alcohol or drug abuse patient.[facility] HospitalIn the event this information is protected by the Federal Confidentiality of Alcohol and Drug Abuse Patient Records regulations: The Federal rules restrict any use of the information to criminally investigate or prosecute any alcohol or drug abuse patient.[facility] HospitalIn the event this information is protected by the Federal Confidentiality of Alcohol and Drug Abuse Patient Records regulations: The Federal rules restrict any use of the information to criminally investigate or prosecute any alcohol or drug abuse patient.[facility] HospitalIn the event this information is protected by the Federal Confidentiality of Alcohol and Drug Abuse Patient Records regulations: The Federal rules restrict any use of the information to criminally investigate or prosecute any alcohol or drug abuse patient.[facility] HospitalIn the event this information is protected by the Federal Confidentiality of Alcohol and Drug Abuse Patient Records regulations: The Federal rules restrict any use of the information to criminally investigate or prosecute any alcohol or drug abuse patient.[facility] HospitalIn the event this information is protected by the Federal Confidentiality of Alcohol and Drug Abuse Patient Records regulations: The Federal rules restrict any use of the information to criminally investigate or prosecute any alcohol or drug abuse patient.[facility] HospitalIn the event this information is protected by the Federal Confidentiality of Alcohol and Drug Abuse Patient Records regulations: The Federal rules restrict any use of the information to criminally investigate or prosecute any alcohol or drug abuse patient.[facility] HospitalIn the event this information is protected by the Federal Confidentiality of Alcohol and Drug Abuse Patient Records regulations: The Federal rules restrict any use of the information to criminally investigate or prosecute any alcohol or drug abuse patient.[facility] HospitalIn the event this information is protected by the Federal Confidentiality of Alcohol and Drug Abuse Patient Records regulations: The Federal rules restrict any use of the information to criminally investigate or prosecute any alcohol or drug abuse patient.[facility] HospitalIn the event this information is protected by the Federal Confidentiality of Alcohol and Drug Abuse Patient Records regulations: The Federal rules restrict any use of the information to criminally investigate or prosecute any alcohol or drug abuse patient.[facility] HospitalIn the event this information is protected by the Federal Confidentiality of Alcohol and Drug Abuse Patient Records regulations: The Federal rules restrict any use of the information to criminally investigate or prosecute any alcohol or drug abuse patient.[facility] HospitalIn the event this information is protected by the Federal Confidentiality of Alcohol and Drug Abuse Patient Records regulations: The Federal rules restrict any use of the information to criminally investigate or prosecute any alcohol or drug abuse patient.[facility] HospitalIn the event this information is protected by the Federal Confidentiality of Alcohol and Drug Abuse Patient Records regulations: The Federal rules restrict any use of the information to criminally investigate or prosecute any alcohol or drug abuse patient.[facility] HospitalIn the event this information is protected by the Federal Confidentiality of Alcohol and Drug Abuse Patient Records regulations: The Federal rules restrict any use of the information to criminally investigate or prosecute any alcohol or drug abuse patient.[facility] HospitalIn the event this information is protected by the Federal Confidentiality of Alcohol and Drug Abuse Patient Records regulations: The Federal rules restrict any use of the information to criminally investigate or prosecute any alcohol or drug abuse patient.[facility] HospitalIn the event this information is protected by the Federal Confidentiality of Alcohol and Drug Abuse Patient Records regulations: The Federal rules restrict any use of the information to criminally investigate or prosecute any alcohol or drug abuse patient.[facility] HospitalIn the event this information is protected by the Federal Confidentiality of Alcohol and Drug Abuse Patient Records regulations: The Federal rules restrict any use of the information to criminally investigate or prosecute any alcohol or drug abuse patient.[facility] HospitalIn the event this information is protected by the Federal Confidentiality of Alcohol and Drug Abuse Patient Records regulations: The Federal rules restrict any use of the information to criminally investigate or prosecute any alcohol or drug abuse patient.[facility] HospitalIn the event this information is protected by the Federal Confidentiality of Alcohol and Drug Abuse Patient Records regulations: The Federal rules restrict any use of the information to criminally investigate or prosecute any alcohol or drug abuse patient.[facility] HospitalIn the event this information is protected by the Federal Confidentiality of Alcohol and Drug Abuse Patient Records regulations: The Federal rules restrict any use of the information to criminally investigate or prosecute any alcohol or drug abuse patient.[facility] HospitalIn the event this information is protected by the Federal Confidentiality of Alcohol and Drug Abuse Patient Records regulations: The Federal rules restrict any use of the information to criminally investigate or prosecute any alcohol or drug abuse patient.[facility] HospitalIn the event this information is protected by the Federal Confidentiality of Alcohol and Drug Abuse Patient Records regulations: The Federal rules restrict any use of the information to criminally investigate or prosecute any alcohol or drug abuse patient.[facility] Reason for Visit (unrecogniz ed section and content) Reason Onset Date Comments Population Health Navigation Outreach 11/03/2021 [facility] Reason Comments Physical Reason Comments Results, Lab [...] Care Specialty Diagnoses / Procedures Referred By Lopez bruner Referred To Contact Podiatry / PODIATRY Diagnoses Type 2 diabetes mellitus without complication, without long-term current use of insulin (HCC) Procedures CONSULT TO PODIATRY OFFICE/OUTPATIENT [facility] 60 MINUTES Christina Edmonds APRN.PLIER WORKER [address] [place] [address] Podi [facility] [address] [place] [address] Referral ID Status Reason Start Date Expiration Date V isits Requested Visits Authorized [id number] Closed PCP Requested Referral 07/12/2023 07/11/2024 1 [...] type (HCC) Procedures CONSULT TO GERIATRICS OFFICE/OUTPATIENT [facility] 60 MINUTES Christina Edmonds APRN.PLIER WORKER [address] [place] [address] Referral ID Status Reason Start Date Expiration Date V isits Requested Visits Authorized [id number] Closed PCP Requested Referral 03/14/2024 03/14/2025 1 1 Reason Comments Results Reason Comments Orders Reason Comments B-12 Injection Reason Onset Date Comments Refill Request 05/15/2024 Reason Comments scrape on lower right leg X 1.5 hours Reason Onset Date Comments Erroneous encounter-disregard 07/24/2024 Reason Comments Patient Update process began to get her admitted to [facility] Reason Comments Medicare Wellness Exam only concern is [place] worsening getting lost having trouble finding home and then looking for Robert who is currently in rehab Reason Comments Patient Update Reason Comments Patient Question Reason Onset Date Comments Refill Request 08/28/2024 Reason Onset Date Comments Population Health Navigation Outreach 10/10/2024 [facility] Reason Onset Date Comments Population Health Navigation Outreach 11/13/2024 [facility] Care Teams (unrecognized sec tion and content) Assistant Film Editor Relationship Specialty Start Date End Date Jose Corbett MD [address] [facility] [place] [address] PCP - General Internal Medicine 10/30/15 Assistant Film Editor Relationship Specialty Start Date End Date Jose Corbett MD [address] [facility] [place] [address] PCP - General Internal Medicine 10/30/15 Assistant Film Editor Relationship Specialty Start Date End Date Jose Corbett MD [address] [facility] [place] [address] PCP - General Internal Medicine 10/30/15 Assistant Film Editor Relationship Specialty Start Date End Date Jose Corbett MD [address] [facility] [place] [address] PCP - General Internal Medicine 10/30/15 Assistant Film Editor Relationship Specialty Start Date End Date Evita Jimenez, HOLISTIC NUTRITIONIST.A P MANAGER [address] [facility] [place] [address] PCP - General Internal Medicine 01/09/22 Assistant Film Editor Relationship Specialty Start Date End Date Evita Jimenez, HOLISTIC NUTRITIONIST.A P MANAGER [address] [facility] [place] [address] PCP - General Internal Medicine 01/09/22 Assistant Film Editor Relationship Specialty Start Date End Date Jose Corbett MD [address] [facility] [place] [address] PCP - General Internal Medicine 01/29/22 Assistant Film Editor Relationship Specialty Start Date End Date Jose Corbett MD [address] [place] [address] PCP - General Internal Medicine 01/29/22 Assistant Film Editor Relationship Specialty Start Date End Date Jose Corbett MD [address] [place] [address] PCP - General Internal Medicine 01/29/22 Team Status: Active Member Role Status Dates Dr. Jose Corbett MD Family Provider Active Evita Jimenez TEAM PSYCHOLOGIST, TEAM PSYCHOLOGIST-C Primary Care Provider Active Team Status: Active Member Role Status Dates Dr. Artur Gallardo , Emergency Provider Active Evita Jimenez TEAM PSYCHOLOGIST, TEAM PSYCHOLOGIST-C Primary Care Provider Active Dr. Viri Mcclelland MD Admit Provider, Other Provider A ctive Dr. Teddy Turpin , DO Attending Provider, Other Provider Active Team Status: Inactive Member Role Status Dates Dr. Artur Gallardo , Emergency Provider Active Evita Jimenez TEAM PSYCHOLOGIST, TEAM PSYCHOLOGIST-C Primary Care Provider Active Dr. Viri Mcclelland MD Admit Provider, Other Provider A ctive Dr. Teddy Turpin , DO Attending Provider Active Assistant Film Editor Relationship Specialty Start Date End Date Jose Corbett MD [address] [place] [address] PCP - General Internal Medicine 01/29/22 Assistant Film Editor Relationship Specialty Start Date End Date Jose Corbett MD [address] [place] [address] PCP - General Internal Medicine 01/29/22 Assistant Film Editor Relationship Specialty Start Date End Date Jose Corbett MD [address] [place] [address] PCP - General Internal Medicine 01/29/22 Assistant Film Editor Relationship Specialty Start Date End Date Jose Corbett MD [address] [facility] [place] [address] PCP - General Internal Medicine 01/29/22 Assistant Film Editor Relationship Specialty Start Date End Date Jose Corbett MD [address] [facility] [place] [address] PCP - General Internal Medicine 01/29/22 Assistant Film Editor Relationship Specialty Start Date End Date Jose Corbett MD [address] [place] [address] PCP - General Internal Medicine 01/29/22 Assistant Film Editor Relationship Specialty Start Date End Date Jose Corbett MD [address] [place] [address] PCP - General Internal Medicine 01/29/22 08/09/23 Christina Edmonds APRN.PLIER WORKER [address] [place] [address] PCP - General Internal Medicine 08/10/23 Assistant Film Editor Relationship Specialty Start Date End Date Christina Edmonds APRN.PLIER WORKER [address] [place] [address] PCP - General Internal Medicine 08/10/23 Assistant Film Editor Relationship Specialty Start Date End Date Christina Edmonds APRN.PLIER WORKER [address] [place] [address] PCP - General Internal Medicine 08/10/23 Assistant Film Editor Relationship Specialty Start Date End Date Christina Edmonds APRN.PLIER WORKER [address] [place] [address] PCP - General Internal Medicine 08/10/23 Assistant Film Editor Relationship Specialty Start Date End Date Christina Edmonds APRN.PLIER WORKER [address] [place] [address] PCP - General Internal Medicine 08/10/23 Assistant Film Editor Relationship Specialty Start Date End Date Christina Edmonds APRN.PLIER WORKER [address] [place] [address] PCP - General Internal Medicine 08/10/23 Assistant Film Editor Relationship Specialty Start Date End Date Christina Edmonds APRN.PLIER WORKER [address] [place] [address] PCP - General Internal Medicine 08/10/23 Assistant Film Editor Relationship Specialty Start Date End Date Christina Edmonds APRN.PLIER WORKER [address] [place] [address] PCP - General Internal Medicine 08/10/23 Assistant Film Editor Relationship Specialty Start Date End Date Christina Edmonds APRN.PLIER WORKER [address] [place] [address] PCP - General Internal Medicine 08/10/23 Assistant Film Editor Relationship Specialty Start Date End Date Christina Edmonds APRN.PLIER WORKER [address] [place] [address] PCP - General Internal Medicine 08/10/23 Assistant Film Editor Relationship Specialty Start Date End Date Christina Edmonds APRN.PLIER WORKER [address] [place] [id number] PCP - General Internal Medicine 08/10/23 Assistant Film Editor Relationship Specialty Start Date End Date Christina Edmonds APRN.PLIER WORKER [address] [place] [address] PCP - General Internal Medicine 08/10/23 Assistant Film Editor Relationship Specialty Start Date End Date Christina Edmonds APRN.PLIER WORKER [facility] [place] [address] PCP - General Internal Medicine 08/10/23 Assistant Film Editor Relationship Specialty Start Date End Date Christina Edmonds APRN.PLIER WORKER [address] [place] [address] PCP - General Internal Medicine 08/10/23 Assistant Film Editor Relationship Specialty Start Date End Date Christina Edmonds APRN.PLIER WORKER [address] [place] [phone] PCP - General Internal Medicine 08/10/23 Assistant Film Editor Relationship Specialty Start Date End Date Christina Edmonds APRN.PLIER WORKER [address] [place] [phone] PCP - General Internal Medicine 08/10/23 Assistant Film Editor Relationship Specialty Start Date End Date Christina Edmonds APRN.PLIER WORKER [facility] [place] [address] PCP - General Internal Medicine 08/10/23 Assistant Film Editor Relationship Specialty Start Date End Date Christina Edmonds APRN.PLIER WORKER [facility] [place] [address] PCP - General Internal Medicine 08/10/23 Assistant Film Editor Relationship Specialty Start Date End Date Christina Edmonds APRN.PLIER WORKER [facility] [place] [address] PCP - General Internal Medicine 08/10/23 Assistant Film Editor Relationship Specialty Start Date End Date Christina Edmonds APRN.PLIER WORKER [address] [facility] [place] [address] PCP - General Internal Medicine 08/10/23 Assistant Film Editor Relationship Specialty Start Date End Date Christina Edmonds APRN.PLIER WORKER [address] [facility] [place] [address] PCP - General Internal Medicine 08/10/23 Assistant Film Editor Relationship Specialty Start Date End Date Christina Edmonds APRN.PLIER WORKER [address] [facility] [place] [address] PCP - General Internal Medicine 08/10/23 Assistant Film Editor Relationship Specialty Start Date End Date Christina Edmonds APRN.PLIER WORKER [address] [facility] [place] [address] PCP - General Internal Medicine 08/10/23 Assistant Film Editor Relationship Specialty Start Date End Date Christina Edmonds APRN.PLIER WORKER [address] [facility] [place] [address] PCP - General Internal Medicine 08/10/23 INFORMATION SOURCE (unrecogn ized section and content) DATE CREATED AUTHOR 11/17/2024 [facility] DATE CREATED AUTHOR AUTHOR'S ORGANIZ ATION 12/27/2024 [facility] FOR RECORDS PERTAINING TO PATIENTS WHO ARE [...] BE BASED ON THE PRIMARY CLINICAL RECORDS. [employer] [facility]. provides no warranty or guarantee of the accuracy or completeness of information in this document.
[2025-03-13 08:43] LABS: Hematocrit 40.3 % (37-47); Hemoglobin 13.6 g/dL (12.0-15.0); Mean Corp Hgb Conc 33.7 g/dL (32-36); Mean Corpuscular Volume 91.2 fL (81-99); Mean Platelet Vol. 10.2 fl (6.2-12.0); Platelet Count 190 K/mm3 (150-450); RBC Distribution Width CV 14.2 % (11.6-14.6); RBC Distribution Width SD 47.9 fl (35.1-43.9); Red Blood Count 4.42 M/mm3 (4.2-5.4); White Blood Count 6.2 K/mm3 (4.4-11.0)
[2025-03-13 09:02] LABS: AST(SGOT) 16 U/L (<=31); Alanine Aminotransfer ALT/SGPT 11 U/L (<=34); Albumin, Serum 3.6 g/dL (3.4-4.8); Alkaline Phosphatase 39 U/L (35-104); Bilirubin, Direct 0.12 mg/dL (0.00-0.30); Globulin 1.9 g/dL (2.2-4.2)
[2025-03-13 09:05] LABS: Valproic Acid (Depakene) Level 38 ug/mL (50-100)
== END ==
LOC: OLS.SW 05:00
PROVIDERS: PCP Internal Medicine; Visit Provider Internal Medicine
DX: E11.9 Type 2 diabetes mellitus without complications (principal); E55.9 Vitamin D deficiency, unspecified; E78.5 Hyperlipidemia, unspecified
CPT/HCPCS: 36415; 80076; 80164; 85027

== ENCOUNTER → 2025-05-01 05:00 | Outpatient (REF) | payer MEDICARE, SELFPAY ==
--- OUTSIDE RECORDS SUMMARY | 2025-05-01 04:10 | XMS RPT_ITS | CCD ---
Author Organization [facility] Care Team Providers Care Data Management Manager Name Role Phone Jose Corbett MD Primary Care Provider Tony RESEARCH ASSISTANT.BOX CUTTER, Evita Primary Care Provider Jose Corbett MD Primary Care Provider Dr. Jose Corbett Primary Care Provider Dr. Aris Herrera Emergency Provider Dr. Sean Ivy Admit Provider Dr. Sean Ivy Attending Provider Dr. Sean Ivy Other Provider Jose Corbett MD Primary Care Provider Dr. Artur Gallardo Emergency Provider Tony FORGER HELPER, FORGER HELPER-C Evita Primary Care Provider Dr. Viri Mcclelland Admit Provider Dr. Viri Mcclelland Other Provider Dr. Teddy Turpin Attending Provider [phone] Dr. Teddy Turpin Other Provider Jose Corbett MD Primary Care Provider Grey RESEARCH ASSISTANT.HIGH PRESSURE BOILER OPERATOR, Christina Primary Care Provider Grey RESEARCH ASSISTANT.HIGH PRESSURE BOILER OPERATOR, Christina Primary Care Provider Grey RESEARCH ASSISTANT.HIGH PRESSURE BOILER OPERATOR, Christina Primary Care Provider GREY, CHRISTINA Attending Unavailable GREY, CHRISTINA Primary [...] Care Unavailable GREY, CHRISTINA Primary Care Unavailable Gudla OLS, Milady Attending Unavailable Grey FORGER HELPER, Christina Primary Care Unavailable Grey FORGER HELPER, Christina Primary Care Unavailable Gudla OLS, Milady Attending Unavailable Grey FORGER HELPER, Christina Primary Care Unavailable Gudla OLS, Milady Attending Unavailable Gudla OLS, Milady Referring Unavailable Gudla OLS, Milady Attending Unavailable Gudla OLS, Milady Referring Unavailable Grey FORGER HELPER, Christina Primary Care Unavailable Medications Current Medications Medication Drug Class(es) Dates Sig (Normalized) Sig (Original) acetaminophen 325 mg oral tablet (2 sources) Start: 10-30-2015 End: 11-27-2021 take 2 tablets by mouth every six hours as needed acetaminophen (TYLENOL) 325 mg tablet Take 2 tablets by mouth every 6 hours as needed. 0 10/30/2015 11/27/2021 Discontinued Comment on above: Take 2 tablets by [facility] every 6 hours as needed. amoxicillin [...] Comment on above: Take 1 tablet by [facility] two times a day for 10 days. [...] oral capsule (3 sources) Cephalosporin Antibacterial Start: 025 End: take 1 capsule by mouth twice daily cephALEXin (KEFLEX) 500 mg capsule Indications: Skin tear of lower leg without complication, initial encounter Take 1 capsule by mouth two times a day for 5 days. 10 capsule 07/19/2024 07/24/2024 Active cholecalciferol 0.05 mg oral tablet (6 sources) Vitamin D Start: 025 take 1 tablet by mouth once daily [...] (2 sources) Histamine-1 Receptor Antagonist Start: 10-30-19 End: 11-28-19 take 1 capsule by mouth every twenty-four hours as needed diphenhydrAMINE (BENADRYL) 25 mg capsule Take 1 capsule by mouth at bedtime as needed. 0 10/30/2015 11/27/2021 Discontinued Comment on above: Take 1 capsule by mo [facility] at bedtime as needed. donepezil hydrochloride 10 [...] Start: 08-06-2023 take 3 tablets by mo ut once daily at bedtime melatonin 3 mg [...] on above: Take 2 tablets by mo uth twice daily and take 1 tablet daily [...] tablet (1 source) Atypical Antipsychotic Start: 06-21-19 24 take 0.5 mg by mouth at bedtime [...] Take by mouth. Underpads 30 X 30 pads (20 sources) Start: 07-12-2023 Underpads 30 X 30 pads Indications: Nocturnal enuresis 1 Each once daily. 100 Each 3 07/12/2023 Active Start: 07-12-2023 End: 07-12-2023 Underpads 30 X 30 pads Ind ications: Nocturnal enuresis 1 Each [...] Facility CBC-Complete Blood Cnt No Di ffon 03-13-2025 Erythrocyte distribution width (RBC) [Ratio] 14.2 % Normal 11.6-14.6 [facility] Comment on above: Order Comment: 411-2 Performed By: #### L 500.3400, L501.8100, L100.0500 #### [facility] [address] [place], [place], [id number] Hematocrit (Bld) [Volume fraction] 40.3 % Normal 37-47 [facility] Comment on above: Order Comment: 411-2 Performed By: #### L 500.3400, L501.8100, L100.0500 #### [facility] [address] [place], [address] Hemoglobin (Bld) [Mass/Vol] 13.6 g/dL Normal 12.0-15.0 [facility] Comment on above: Order Comment: 411-2 Performed By: #### L 500.3400, L501.8100, L100.0500 #### [facility] [address] [place], [address] MCH (RBC) [Entitic mass] 30.8 pg Normal 27.0-32.0 [facility] Comment on above: Order Comment: 411-2 Performed By: #### L 500.3400, L501.8100, L100.0500 #### [facility] [address] [place], [address] MCHC (RBC) [Mass/Vol] 33.7 g/dL Normal 32-36 [facility] Comment on above: Order Comment: 411-2 Performed By: #### L 500.3400, L501.8100, L100.0500 #### [facility] [address] [place], [address] MCV (RBC) [Entitic vol] 91.2 fL Normal 81-99 [facility] Comment on above: Order Comment: 411-2 Performed By: #### L 500.3400, L501.8100, L100.0500 #### [facility] [address] [place], [address] Platelet mean volume (Bld) [Entitic vol] 10.2 fL Normal 6.2-12.0 [facility] Comment on above: Order Comment: 411-2 Performed By: #### L 500.3400, L501.8100, L100.0500 #### [facility] [address] [place], [address] Platelets (Bld) [#/Vol] 190 10*3/uL Normal 150-450 [facility] Comment on above: Order Comment: 411-2 Performed By: #### L 500.3400, L501.8100, L100.0500 #### [facility] [address] [place], [address] RBC (Bld) [#/Vol] 4.42 10*6/uL Normal 4.2-5.4 [facility] Comment on above: Order Comment: 411-2 Performed By: #### L 500.3400, L501.8100, L100.0500 #### [facility] [address] [place], [address] RDW SD 47.9 fl High 35.1-43.9 [facility] Comment on above: Order Comment: 411-2 Performed By: #### L 500.3400, L501.8100, L100.0500 #### [facility] [address] [place], [address] WBC (Bld) [#/Vol] 6.2 10*3/uL Normal 4.4-11.0 [facility] Comment on above: Order Comment: 411-2 Performed By: #### L 500.3400, L501.8100, L100.0500 #### [facility] [address] [place], [address] Liver Profileon 03-13-2025 Albumin [Mass/Vol] 3.6 g/dL Normal 3.4-4.8 [facility] Comment on above: Order Comment: 411-2 Performed By: #### L 500.3400, L501.8100, L100.0500 #### [facility] [address] [place], [address] ALK PHOS 39 U/L Normal 35-104 [facility] Comment on above: Order Comment: 411-2 Performed By: #### L 500.3400, L501.8100, L100.0500 #### [facility] [address] [place], [address] ALT [Catalytic activity/Vol] 11 U/L Normal <=34 [facility] Comment on above: Order Comment: 411-2 Performed By: #### L 500.3400, L501.8100, L100.0500 #### [facility] [address] [place], [address] AST [Catalytic activity/Vol] 16 U/L Normal <=31 [facility] Comment on above: Order Comment: 411-2 Performed By: #### L 500.3400, L501.8100, L100.0500 #### [facility] [address] [place], [address] Bilirubin [Mass/Vol] 0.29 mg/dL Normal 0.00-1.30 [facility] Comment on above: Order Comment: 411-2 Performed By: #### L 500.3400, L501.8100, L100.0500 #### [facility] [address] [place], [address] Bilirubin.direct [Mass/Vol] 0.12 mg/dL Normal 0.00-0.30 [facility] Comment on above: Order Comment: 411-2 Performed By: #### L 500.3400, L501.8100, L100.0500 #### [facility] [address] [place], [address] Globulin (S) [Mass/Vol] 1.9 g/dL Low 2.2-4.2 [facility] Comment on above: Order Comment: 411-2 Performed By: #### L 500.3400, L501.8100, L100.0500 #### [facility] [address] [place], [address] T PROT 5.5 g/dL Low 5.9-8.4 [facility] Comment on above: Order Comment: 411-2 Performed By: #### L 500.3400, L501.8100, L100.0500 #### [facility] [address] [place], [address] Valproic Acid (Depakene) Lev itzel 03-13-2025 VALPROIC ACID 38 ug/mL Low 50-100 [facility] Comment on above: Order Comment: 411-2 Result Comment: Valp roic Acid concentrations >100 ug/mL are potentially toxic. Performed By: #### L 500.3400, L501.8100, L100.0500 #### [facility] [address] [place], [address] CBC-Complete Blood Cnt No Di ffon 12-12-2024 Erythrocyte distribution width (RBC) [Ratio] 14.5 % Normal 11.6-14.6 [facility] Comment on above: Order Comment: 411.2 Performed By: #### L 100.0500, L500.3400, L501.8100 #### [facility] [address] [place], [address] Hematocrit (Bld) [Volume fraction] 40.5 % Normal 37-47 [facility] Comment on above: Order Comment: 411.2 Performed By: #### L 100.0500, L500.3400, L501.8100 #### [facility] [address] [place], [address] Hemoglobin (Bld) [Mass/Vol] 13.4 g/dL Normal 12.0-15.0 [facility] Comment on above: Order Comment: 411.2 Performed By: #### L 100.0500, L500.3400, L501.8100 #### [facility] [address] [place], [address] MCH (RBC) [Entitic mass] 29.9 pg Normal 27.0-32.0 [facility] Comment on above: Order Comment: 411.2 Performed By: #### L 100.0500, L500.3400, L501.8100 #### [facility] [address] [place], [address] MCHC (RBC) [Mass/Vol] 33.1 g/dL Normal 32-36 [facility] Comment on above: Order Comment: 411.2 Performed By: #### L 100.0500, L500.3400, L501.8100 #### [facility] [address] [place], [address] MCV (RBC) [Entitic vol] 90.4 fL Normal 81-99 [facility] Comment on above: Order Comment: 411.2 Performed By: #### L 100.0500, L500.3400, L501.8100 #### [facility] [address] [place], [address] Platelet mean volume (Bld) [Entitic vol] 9.9 fL Normal 6.2-12.0 [facility] Comment on above: Order Comment: 411.2 Performed By: #### L 100.0500, L500.3400, L501.8100 #### [facility] [address] [place], [address] Platelets (Bld) [#/Vol] 224 10*3/uL Normal 150-450 [facility] Comment on above: Order Comment: 411.2 Performed By: #### L 100.0500, L500.3400, L501.8100 #### [facility] [address] [place], [address] RBC (Bld) [#/Vol] 4.48 10*6/uL Normal 4.2-5.4 [facility] Comment on above: Order Comment: 411.2 Performed By: #### L 100.0500, L500.3400, L501.8100 #### [facility] [address] [place], [address] RDW SD 47.8 fl High 35.1-43.9 [facility] Comment on above: Order Comment: 411.2 Performed By: #### L 100.0500, L500.3400, L501.8100 #### [facility] [address] [place], [address] WBC (Bld) [#/Vol] 6.2 10*3/uL Normal 4.4-11.0 [facility] Comment on above: Order Comment: 411.2 Performed By: #### L 100.0500, L500.3400, L501.8100 #### [facility] [address] [place], [address] Liver Profileon 12-12-2024 Albumin [Mass/Vol] 3.9 g/dL Normal 3.4-4.8 [facility] Comment on above: Order Comment: 411.2 Performed By: #### L 100.0500, L500.3400, L501.8100 #### [facility] [address] [place], [address] ALK PHOS 49 U/L Normal 35-104 [facility] Comment on above: Order Comment: 411.2 Performed By: #### L 100.0500, L500.3400, L501.8100 #### [facility] [address] [place], [address] ALT [Catalytic activity/Vol] 9 U/L Normal <=34 [facility] Comment on above: Order Comment: 411.2 Performed By: #### L 100.0500, L500.3400, L501.8100 #### [facility] [address] [place], [address] AST [Catalytic activity/Vol] 14 U/L Normal <=31 [facility] Comment on above: Order Comment: 411.2 Performed By: #### L 100.0500, L500.3400, L501.8100 #### [facility] [address] [place], [address] Bilirubin [Mass/Vol] 0.52 mg/dL Normal 0.00-1.30 [facility] Comment on above: Order Comment: 411.2 Performed By: #### L 100.0500, L500.3400, L501.8100 #### [facility] [address] [place], [address] Bilirubin.direct [Mass/Vol] 0.22 mg/dL Normal 0.00-0.30 [facility] Comment on above: Order Comment: 411.2 Performed By: #### L 100.0500, L500.3400, L501.8100 #### [facility] [address] [place], [address] Globulin (S) [Mass/Vol] 2.4 g/dL Normal 2.2-4.2 [facility] Comment on above: Order Comment: 411.2 Performed By: #### L 100.0500, L500.3400, L501.8100 #### [facility] [address] [place], [address] T PROT 6.3 g/dL Normal 5.9-8.4 [facility] Comment on above: Order Comment: 411.2 Performed By: #### L 100.0500, L500.3400, L501.8100 #### [facility] [address] [place], [address] Valproic Acid (Depakene) Lev itzel 12-12-2024 VALPROIC ACID 55 ug/mL Normal 50-100 [facility] Comment on above: Order Comment: 411.2 Result Comment: Valp roic Acid concentrations >100 ug/mL are potentially toxic. Performed By: #### L 100.0500, L500.3400, L501.8100 #### [facility] [address] [place], [address] CBC-Complete Blood Cnt No Di ffon 10-09-2024 Erythrocyte distribution width (RBC) [Ratio] 12.9 % Normal 11.6-14.6 [facility] Comment on above: Performed By: #### L 501.9520, L500.4050, L501.8100, L500.4100, L100.0500, L501.9985 #### [facility] [address] [place], [address] Hematocrit (Bld) [Volume fraction] 38.5 % Normal 37-47 [facility] Comment on above: Performed By: #### L 501.9520, L500.4050, L501.8100, L500.4100, L100.0500, L501.9985 #### [facility] [address] [place], [address] Hemoglobin (Bld) [Mass/Vol] 12.8 g/dL Normal 12.0-15.0 [facility] Comment on above: Performed By: #### L 501.9520, L500.4050, L501.8100, L500.4100, L100.0500, L501.9985 #### [facility] [address] [place], [address] MCH (RBC) [Entitic mass] 30.2 pg Normal 27.0-32.0 [facility] Comment on above: Performed By: #### L 501.9520, L500.4050, L501.8100, L500.4100, L100.0500, L501.9985 #### [facility] [address] [place], [address] MCHC (RBC) [Mass/Vol] 33.2 g/dL Normal 32-36 [facility] Comment on above: Performed By: #### L 501.9520, L500.4050, L501.8100, L500.4100, L100.0500, L501.9985 #### [facility] [address] [place], [address] MCV (RBC) [Entitic vol] 90.8 fL Normal 81-99 [facility] Comment on above: Performed By: #### L 501.9520, L500.4050, L501.8100, L500.4100, L100.0500, L501.9985 #### [facility] [address] [place], [address] Platelet mean volume (Bld) [Entitic vol] 10.6 fL Normal 6.2-12.0 [facility] Comment on above: Performed By: #### L 501.9520, L500.4050, L501.8100, L500.4100, L100.0500, L501.9985 #### [facility] [address] [place], [address] Platelets (Bld) [#/Vol] 172 10*3/uL Normal 150-450 [facility] Comment on above: Performed By: #### L 501.9520, L500.4050, L501.8100, L500.4100, L100.0500, L501.9985 #### [facility] [address] [place], [address] RBC (Bld) [#/Vol] 4.24 10*6/uL Normal 4.2-5.4 [facility] Comment on above: Performed By: #### L 501.9520, L500.4050, L501.8100, L500.4100, L100.0500, L501.9985 #### [facility] [address] [place], [address] RDW SD 42.7 fl Normal 35.1-43.9 [facility] Comment on above: Performed By: #### L 501.9520, L500.4050, L501.8100, L500.4100, L100.0500, L501.9985 #### [facility] [address] [place], [address] WBC (Bld) [#/Vol] 6.3 10*3/uL Normal 4.4-11.0 [facility] Comment on above: Performed By: #### L 501.9520, L500.4050, L501.8100, L500.4100, L100.0500, L501.9985 #### [facility] [address] [place], [address] Comprehensive Metabolic Prof [facility] 10-09-2024 Albumin [Mass/Vol] 3.9 g/dL Normal 3.4-4.8 [facility] Comment on above: Performed By: #### L 500.3400, L501.8100, L100.0500 #### [facility] [address] [place], [address] Albumin/Globulin [Mass ratio] 1.8 {ratio} Normal 0.9-2.4 [facility] Comment on above: Performed By: #### L 500.3400, L501.8100, L100.0500 #### [facility] [address] [place], [address] ALK PHOS 52 U/L Normal 35-104 [facility] Comment on above: Performed By: #### L 500.3400, L501.8100, L100.0500 #### [facility] [address] [place], [address] ALT [Catalytic activity/Vol] 12 U/L Normal <=34 [facility] Comment on above: Performed By: #### L 500.3400, L501.8100, L100.0500 #### [facility] [address] [place], [address] AST [Catalytic activity/Vol] 20 U/L Normal <=31 [facility] Comment on above: Performed By: #### L 500.3400, L501.8100, L100.0500 #### [facility] [address] [place], [address] Bilirubin [Mass/Vol] 0.51 mg/dL Normal 0.00-1.30 [facility] Comment on above: Performed By: #### L 500.3400, L501.8100, L100.0500 #### [facility] [address] [place], [address] BUN/CRE 25.3 RATIO High 10-20 [facility] Comment on above: Performed By: #### L 500.3400, L501.8100, L100.0500 #### [facility] [address] [place], [address] Calcium [Mass/Vol] 9.6 mg/dL Normal 7.6-11.0 [facility] Comment on above: Performed By: #### L 500.3400, L501.8100, L100.0500 #### [facility] [address] [place], [address] Chloride [Moles/Vol] 102 mmol/L Normal 98-108 [facility] Comment on above: Performed By: #### L 500.3400, L501.8100, L100.0500 #### [facility] [address] [place], [address] CO2 [Moles/Vol] 25.3 mmol/L Normal 21.0-32.0 [facility] Comment on above: Performed By: #### L 500.3400, L501.8100, L100.0500 #### [facility] [address] [place], [address] Creatinine [Mass/Vol] 0.58 mg/dL Low 0.70-1.20 [facility] Comment on above: Performed By: #### L 500.3400, L501.8100, L100.0500 #### [facility] [address] [place], [address] GAP 13 Normal 5-15 [facility] Comment on above: Performed By: #### L 500.3400, L501.8100, L100.0500 #### [facility] [address] [place], [address] GFR/1.73 sq M.predicted among non-blacks MDRD (S/P/Bld) [Vol rate/Area] 89 mL/min/{1.73_m2} Normal >60 [facility] Comment on above: Result Comment: mL/m in/1.73m2 CKD-EPI Creatinine Equation (2020) Performed By: #### L 500.3400, L501.8100, L100.0500 #### [facility] [address] [place], [address] Globulin (S) [Mass/Vol] 2.1 g/dL Low 2.2-4.2 [facility] Comment on above: Performed By: #### L 500.3400, L501.8100, L100.0500 #### [facility] [address] [place], [address] Glucose [Mass/Vol] 136 mg/dL High 70-99 [facility] Comment on above: Performed By: #### L 500.3400, L501.8100, L100.0500 #### [facility] [address] [place], [address] Potassium [Moles/Vol] 3.7 mmol/L Normal 3.3-5.1 [facility] Comment on above: Result Comment: Hemo lysis present, Results??could be affected. ?? Performed By: #### L 500.3400, L501.8100, L100.0500 #### [facility] [address] [place], [address] Sodium [Moles/Vol] 141 mmol/L Normal 133-145 [facility] Comment on above: Performed By: #### L 500.3400, L501.8100, L100.0500 #### [facility] [address] [place], [address] T PROT 6.0 g/dL Normal 5.9-8.4 [facility] Comment on above: Performed By: #### L 500.3400, L501.8100, L100.0500 #### [facility] [address] [place], [address] Urea nitrogen [Mass/Vol] 15 mg/dL Normal 4-19 [facility] Comment on above: Performed By: #### L 500.3400, L501.8100, L100.0500 #### [facility] [address] [place], [address] Hemoglobin A1con 10-09-2024 HbA1c (Bld) [Mass fraction] 9.4 % High <=5.6 [facility] Comment on above: Result Comment: Norm al < 5.7 % Prediabetic 5.7 - 6.4 % Diabetic >or= 6.5 % Please note range changes. Performed By: #### L 500.3400, L501.8100, L100.0500 #### [facility] [address] [place], [address] Lipid Profileon 10-09-2024 CHOL:HDL 2.51 Normal [facility] Comment on above: Performed By: #### L 500.3400, L501.8100, L100.0500 #### [facility] [address] [place], [address] Cholesterol [Mass/Vol] 132 mg/dL Normal <=200 [facility] Comment on above: Result Comment: Chol esterol level, Desirable <200 mg/dL Borderline high cholesterol 200-239 mg/dL High cholesterol >=240 mg/dL Recommendations of the NCEP Adult Treatment Panel for the following risk-cutoff thresholds for the [place] population. Performed By: #### L 500.3400, L501.8100, L100.0500 #### [facility] [address] [place], [address] Cholesterol in HDL [Mass/Vol] 53 mg/dL Normal [facility] Comment on above: Result Comment: [place]ora onal Cholesterol Education Program (NCEP) guidelines: <40 mg/dL: Low HDL-cholesterol (major risk factor for CHD) >= 60 mg/dL: High HDL-cholesterol (negative risk factor for CHD) HDL-cholesterol is affected by a number of factors, e.g. smoking, exercise, hormones, sex and age. Performed By: #### L 500.3400, L501.8100, L100.0500 #### [facility] [address] [place], [address] Cholesterol in LDL [Mass/Vol] 48 mg/dL Normal [facility] Comment on above: Result Comment: Bord rxijjb=485-741 mg/dL Higher Ydiy=066 mg/dL or greater Performed By: #### L 500.3400, L501.8100, L100.0500 #### [facility] [address] [place], [address] Cholesterol in VLDL [Mass/Vol] 31 mg/dL Normal 5-40 [facility] Comment on above: Performed By: #### L 500.3400, L501.8100, L100.0500 #### [facility] [address] [place], [address] Triglyceride [Mass/Vol] 157 mg/dL Normal [facility] Comment on above: Result Comment: The drugs N-Acetylcysteine and Metamizole may falsely depress this assay. Normal range: <150 mg/dL Borderline High: 150-199 mg/dL High: 200-499 mg/dL Very High: >500 mg/dL Performed By: #### L 500.3400, L501.8100, L100.0500 #### [facility] [address] [place], [address] Thyroid Stim Hormone (TSH)on 10-09-2024 TSH 3.420 uIU/mL Normal 0.300-4.200 [facility] Comment on above: Performed By: #### L 500.3400, L501.8100, L100.0500 #### [facility] [address] [place], [address] Valproic Acid (Depakene) Lev itzel 10-09-2024 VALPROIC ACID 41 ug/mL Low 50-100 [facility] Comment on above: Result Comment: Valp roic Acid concentrations >100 ug/mL are potentially toxic. Performed By: #### L 500.3400, L501.8100, L100.0500 #### [facility] [address] [place], [address] CBC-Complete Blood Cnt No Di ffon 10-06-2024 Erythrocyte distribution width (RBC) [Ratio] 12.9 % Normal 11.6-14.6 [facility] Comment on above: Order Comment: 411-2 Performed By: #### L 500.3400, L501.8100, L100.0500 #### [facility] [address] [place], [address] Hematocrit (Bld) [Volume fraction] 36.0 % Low 37-47 [facility] Comment on above: Order Comment: 411-2 Performed By: #### L 500.3400, L501.8100, L100.0500 #### [facility] [address] [place], [address] Hemoglobin (Bld) [Mass/Vol] 12.2 g/dL Normal 12.0-15.0 [facility] Comment on above: Order Comment: 411-2 Performed By: #### L 500.3400, L501.8100, L100.0500 #### [facility] [address] [place], [address] MCH (RBC) [Entitic mass] 30.3 pg Normal 27.0-32.0 [facility] Comment on above: Order Comment: 411-2 Performed By: #### L 500.3400, L501.8100, L100.0500 #### [facility] [address] [place], [address] MCHC (RBC) [Mass/Vol] 33.9 g/dL Normal 32-36 [facility] Comment on above: Order Comment: 411-2 Performed By: #### L 500.3400, L501.8100, L100.0500 #### [facility] [address] [place], [address] MCV (RBC) [Entitic vol] 89.3 fL Normal 81-99 [facility] Comment on above: Order Comment: 411-2 Performed By: #### L 500.3400, L501.8100, L100.0500 #### [facility] [address] [place], [address] Platelet mean volume (Bld) [Entitic vol] 9.9 fL Normal 6.2-12.0 [facility] Comment on above: Order Comment: 411-2 Performed By: #### L 500.3400, L501.8100, L100.0500 #### [facility] [address] [place], [address] Platelets (Bld) [#/Vol] 182 10*3/uL Normal 150-450 [facility] Comment on above: Order Comment: 411-2 Performed By: #### L 500.3400, L501.8100, L100.0500 #### [facility] [address] [place], [address] RBC (Bld) [#/Vol] 4.03 10*6/uL Low 4.2-5.4 [facility] Comment on above: Order Comment: 411-2 Performed By: #### L 500.3400, L501.8100, L100.0500 #### [facility] [address] [place], [address] RDW SD 42.3 fl Normal 35.1-43.9 [facility] Comment on above: Order Comment: 411-2 Performed By: #### L 500.3400, L501.8100, L100.0500 #### [facility] [address] [place], [address] WBC (Bld) [#/Vol] 4.8 10*3/uL Normal 4.4-11.0 [facility] Comment on above: Order Comment: 411-2 Performed By: #### L 500.3400, L501.8100, L100.0500 #### [facility] [address] [place], [address] Liver Profileon 10-06-2024 Albumin [Mass/Vol] 3.7 g/dL Normal 3.4-4.8 [facility] Comment on above: Order Comment: 411-2 Performed By: #### L 500.3400, L501.8100, L100.0500 #### [facility] [address] [place], [address] ALK PHOS 51 U/L Normal 35-104 [facility] Comment on above: Order Comment: 411-2 Performed By: #### L 500.3400, L501.8100, L100.0500 #### [facility] [address] [place], [address] ALT [Catalytic activity/Vol] 12 U/L Normal <=34 [facility] Comment on above: Order Comment: 411-2 Performed By: #### L 500.3400, L501.8100, L100.0500 #### [facility] [address] [place], [address] AST [Catalytic activity/Vol] 19 U/L Normal <=31 [facility] Comment on above: Order Comment: 411-2 Performed By: #### L 500.3400, L501.8100, L100.0500 #### [facility] [address] [place], [address] Bilirubin [Mass/Vol] 0.57 mg/dL Normal 0.00-1.30 [facility] Comment on above: Order Comment: 411-2 Performed By: #### L 500.3400, L501.8100, L100.0500 #### [facility] [address] [place], [address] Bilirubin.direct [Mass/Vol] 0.24 mg/dL Normal 0.00-0.30 [facility] Comment on above: Order Comment: 411-2 Performed By: #### L 500.3400, L501.8100, L100.0500 #### [facility] [address] [place], [address] Globulin (S) [Mass/Vol] 2.0 g/dL Low 2.2-4.2 [facility] Comment on above: Order Comment: 411-2 Performed By: #### L 500.3400, L501.8100, L100.0500 #### [facility] [address] [place], [address] T PROT 5.7 g/dL Low 5.9-8.4 [facility] Comment on above: Order Comment: 411-2 Performed By: #### L 500.3400, L501.8100, L100.0500 #### [facility] [address] [place], [address] Valproic Acid (Depakene) Lev itzel 10-06-2024 VALPROIC ACID 27 ug/mL Low 50-100 [facility] Comment on above: Order Comment: 411-2 Result Comment: Valp roic Acid concentrations >100 ug/mL are potentially toxic. Performed By: #### L 500.3400, L501.8100, L100.0500 #### [facility] [place], [address] Yue 08-17-2024 RANDIN Telephone (INTMWS) -------- LANGALEXANDER Paige ([id number]) 1940 F Date Time Provider Department 08/17/24 CHRISTINA EDMONDS During your visit today, we recorded the following information about you: Tamara Michelle RN 08/17/2024 12:37 PM Signed Leatha with [facility] calls to review patient medications to see [...] pass information on to house doctor at [facility] to see how they want to proceed with medication management. Tamara Michelle RN Allergies As of Date: 08/17/2024 (No Known Allergies) Date Reviewed: 08/01/2024 Reviewed by: Christina Edmonds APRN.HIGH PRESSURE BOILER OPERATOR - Fully Assessed Reason for Visit: Patient Question [6007] Prescriptions as of 08/17/2024 - cholecalciferol (VITAMIN [...] at bedtime. - Underpads 30 X 30 pads 1 Each once daily. 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] 07/12/2023 Vitamin B 12 deficiency [E53.8] 08/01/2024 Encounter Status:Closed by TAMARA MICHELLE on 08/17/24 [facility] 08-07-2024 [facility] Telephone (4CQ) -------- ALEXANDER XIAO ([id number]) 1940 F Date Time Provider Department 08/07/24 CHRISTINA EDMONDS 4CQ During your visit today, we recorded the following information about you: Delilah Amezcua 08/07/2024 10:31 AM Signed Nephew Brigido is calling as he received a call from [facility] in regards to the Vit B-12 inj and if patient should be getting this at [facility]. Please advise Christina Howell APRN.HIGH PRESSURE BOILER OPERATOR 08/07/2024 2:21 PM Signed B12 has returned to with in normal limits, no need to continue these while in [facility], we can resume them once she follows back up with our office. Cathy Gold LPN 08/07/2024 2:50 PM Signed Spoke with nephew Brigiod gave information provided. Pt voices understanding. Sunita Ocampo LPN 08/07/2024 3:02 PM Signed Patient nephew Brigido calling back [facility] needs an order to discontinue the Vitamin [...] at bedtime. - Underpads 30 X 30 pads 1 Each once daily. 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, [address] BUN/CRE Normal 10-20 [facility] Comment on above: Order Comment: 411.2 Result Comment: LABS CANCELLED PER NURSE DANYELLE @0602 Performed By: #### L 500.2500, L500.4100, L100.0100 #### [facility] [address] [place], [address] Calcium Normal 7.6-11.0 [facility] Comment on above: Order Comment: 411.2 Result Comment: LABS CANCELLED PER NURSE DANYELLE @0602 Performed By: #### L 500.2500, L500.4100, L100.0100 #### [facility] [address] [place], [address] CL Normal 98-108 [facility] Comment on above: Order Comment: 411.2 Result Comment: LABS CANCELLED PER NURSE DANYELLE @0602 Performed By: #### L 500.2500, L500.4100, L100.0100 #### [facility] [address] [place], [address] CO2 Normal 21.0-32.0 [facility] Comment on above: Order Comment: 411.2 Result Comment: LABS CANCELLED PER NURSE DANYELLE @0602 Performed By: #### L 500.2500, L500.4100, L100.0100 #### [facility] [address] [place], [address] CREAT,SERUM Normal 0.70-1.20 [facility] Comment on above: Order Comment: 411.2 Result Comment: LABS CANCELLED PER NURSE DANYELLE @0602 Performed By: #### L 500.2500, L500.4100, L100.0100 #### [facility] [address] [place], [address] eGFR Normal >60 [facility] Comment on above: Order Comment: 411.2 Result Comment: LABS CANCELLED PER NURSE DANYELLE @0602 Performed By: #### L 500.2500, L500.4100, L100.0100 #### [facility] [address] [place], [address] GAP Normal 5-15 [facility] Comment on above: Order Comment: 411.2 Result Comment: LABS CANCELLED PER NURSE DANYELLE @0602 Performed By: #### L 500.2500, L500.4100, L100.0100 #### [facility] [address] [place], [address] GLU Normal 70-99 [facility] Comment on above: Order Comment: 411.2 Result Comment: LABS CANCELLED PER NURSE DANYELLE @0602 Performed By: #### L 500.2500, L500.4100, L100.0100 #### [facility] [address] [place], [address] Potassium Normal 3.3-5.1 [facility] Comment on above: Order Comment: 411.2 Result Comment: LABS CANCELLED PER NURSE DANYELLE @0602 Performed By: #### L 500.2500, L500.4100, L100.0100 #### [facility] [address] [place], [address] Basic Metabolic Profile (BMP) Normal 133-145 [facility] Comment on above: Order Comment: 411.2 Result Comment: LABS CANCELLED PER NURSE DANYELLE @0602 Performed By: #### L 500.2500, L500.4100, L100.0100 #### [facility] [address] [place], [address] CBC W/Diff, Automatedon - Absolute Neut Normal 2.0-7.7 [facility] Comment on above: Order Comment: 411.2 Result Comment: LABS CANCELLED PER NURSE DANYELLE @0602 Performed By: #### L 500.2500, L500.4100, L100.0100 #### [facility] [address] [place], [address] HCT Normal 37-47 [facility] Comment on above: Order Comment: 411.2 Result Comment: LABS CANCELLED PER NURSE DANYELLE @Estela Performed By: #### L 500.2500, L500.4100, L100.0100 #### [facility] [address] [place], [address] HGB Normal 12.0-15.0 [facility] Comment on above: Order Comment: 411.2 Result Comment: LABS CANCELLED PER NURSE DANYELLE @0602 Performed By: #### L 500.2500, L500.4100, L100.0100 #### [facility] [address] [place], [address] MCH Normal 27.0-32.0 [facility] Comment on above: Order Comment: 411.2 Result Comment: LABS CANCELLED PER NURSE DANYELLE @0602 Performed By: #### L 500.2500, L500.4100, L100.0100 #### [facility] [address] [place], [address] MCHC Normal 32-36 [facility] Comment on above: Order Comment: 411.2 Result Comment: LABS CANCELLED PER NURSE DANYELLE @0602 Performed By: #### L 500.2500, L500.4100, L100.0100 #### [facility] [address] [place], [address] MCV Normal 81-99 [facility] Comment on above: Order Comment: 411.2 Result Comment: LABS CANCELLED PER NURSE DANYELLE @0602 Performed By: #### L 500.2500, L500.4100, L100.0100 #### [facility] [address] [place], [address] NEUT% Normal 47-70 [facility] Comment on above: Order Comment: 411.2 Result Comment: LABS CANCELLED PER NURSE DANYELLE @0602 Performed By: #### L 500.2500, L500.4100, L100.0100 #### [facility] [address] [place], [address] PLT Normal 150-450 [facility] Comment on above: Order Comment: 411.2 Result Comment: LABS CANCELLED PER NURSE DANYELLE @0602 Performed By: #### L 500.2500, L500.4100, L100.0100 #### [facility] [address] [place], [address] RBC Normal 4.2-5.4 [facility] Comment on above: Order Comment: 411.2 Result Comment: LABS CANCELLED PER NURSE DANYELLE @Estela Performed By: #### L 500.2500, L500.4100, L100.0100 #### [facility] [address] [place], [address] RDW CV Normal 11.6-14.6 [facility] Comment on above: Order Comment: 411.2 Result Comment: LABS CANCELLED PER NURSE DANYELLE @0602 Performed By: #### L 500.2500, L500.4100, L100.0100 #### [facility] [address] [place], [address] RDW SD Normal 35.1-43.9 [facility] Comment on above: Order Comment: 411.2 Result Comment: LABS CANCELLED PER NURSE DANYELLE @0602 Performed By: #### L 500.2500, L500.4100, L100.0100 #### [facility] [address] [place], [address] WBC Normal 4.4-11.0 [facility] Comment on above: Order Comment: 411.2 Result Comment: LABS CANCELLED PER NURSE DANYELLE @0602 Performed By: #### L 500.2500, L500.4100, L100.0100 #### [facility] [address] [place], [address] Lipid Profileon 08-04-2024 CHOL Normal <=200 [facility] Comment on above: Order Comment: 411.2 Result Comment: LABS CANCELLED PER NURSE DANYELLE @0602 Performed By: #### L 500.2500, L500.4100, L100.0100 #### [facility] [address] [place], [address] CHOL:HDL Normal [facility] Comment on above: Order Comment: 411.2 Result Comment: LABS CANCELLED PER NURSE DANYELLE @0602 Performed By: #### L 500.2500, L500.4100, L100.0100 #### [facility] [address] [place], [address] CLDL Normal [facility] Comment on above: Order Comment: 411.2 Result Comment: LABS CANCELLED PER NURSE DANYELLE @0602 Performed By: #### L 500.2500, L500.4100, L100.0100 #### [facility] [address] [place], [address] HDL Normal [facility] Comment on above: Order Comment: 411.2 Result Comment: LABS CANCELLED PER NURSE DANYELLE @0602 Performed By: #### L 500.2500, L500.4100, L100.0100 #### [facility] [address] [place], [address] TRIG Normal [facility] Comment on above: Order Comment: 411.2 Result Comment: LABS CANCELLED PER NURSE DANYELLE @0602 Performed By: #### L 500.2500, L500.4100, L100.0100 #### [facility] [address] [place], [address] VLDL Normal 5-40 [facility] Comment on above: Order Comment: 411.2 Result Comment: LABS CANCELLED PER NURSE DANYELLE @0602 Performed By: #### L 500.2500, L500.4100, L100.0100 #### [facility] [address] [place], [address] 25(OH)D3 [facility] 2024 25-hydroxyvitamin D3 [Mass/Vol] 19.9 ng/mL Low 31.0-80.0 [facility] Comment on above: Order Comment: Speci men Type: BLOOD SPECIMEN Ordering Facility: [facility] Address: [address] [place] [address] Result Comment: Clas sification of 25 [place] Vitamin D status: Deficiency/Insufficiency: < or = 30 ng/ml. Sufficiency/Optimal Levels: 31-80 ng/mL Toxicity: > 100 ng/mL. Test performed by chemiluminescent immunoassay. Performed By: #### 1 989-3 #### [facility] CLIA [id number] [address] [place], [place] [address] [address] [place] CBC W Auto Differential pane l (Bld)on 08-01-2024 Basophils (Bld) [#/Vol] 0.07 10*3/uL [facility] Basophils/100 WBC (Bld) 1.1 % [facility] Differential cell count method Nom (Bld) Auto [facility] Eosinophils (Bld) [#/Vol] 0.12 10*3/uL [facility] Eosinophils/100 WBC (Bld) 1.8 % [facility] Erythrocyte distribution width (RBC) [Ratio] 13 % 11.5 - 15.0 % [facility] Hematocrit (Bld) [Volume fraction] 41.7 % 36.0 - 46.0 % [facility] Hemoglobin (Bld) [Mass/Vol] 13.5 g/dL 11.5 - 15.5 g/dL [facility] Immature granul[facility] (Bld) [#/Vol[facility] Immature granulocytes/100 WBC (Bld) 0.3 % [facility] Lymphocytes (Bld) [#/Vol] 2.44 10*3/uL [facility] Lymphocytes/100 WBC (Bld) 37 % [facility] MCH (RBC) [Entitic mass] 30 pg 26. 0 - 34.0 pg [facility] MCHC (RBC) [Mass/Vol] 32.4 g/dL 30.5 - 36.0 g/dL [facility] MCV (RBC) [Entitic vol] 92.7 fL 80.0 - 100.0 fL [facility] Monocytes (Bld) [#/Vol] 0.5 10*3/uL [facility] Monocytes/100 WBC (Bld) 7.6 % [facility] Neutrophils (Bld) [#/Vol] 3.44 10*3/uL [facility] Neutrophils/100 WBC (Bld) 52.2 % [facility] Nucleated RBC (Bld) [#/Vol] [facility] Nucleated RBC/100 WBC (Bld) [Ratio] 0 % /100 WBC [facility] Platelet mean volume (Bld) [Entitic vol] 10.2 fL 9.0 - 12.7 fL [facility] Platelets (Bld) [#/Vol] 247 10*3/uL [facility] RBC (Bld) [#/Vol] 4.5 10*6/uL 3.90 - 5.2 0 m/uL [facility] WBC (Bld) [#/Vol] 6.59 10*3/uL [facility] Basophils (Bld) [#/Vol] 0.07 10*3/uL Normal <0.11 [facility] Comment on above: Order Comment: Speci men Type: BLOOD SPECIMEN Ordering Facility: [facility] Address: [address] [place] [address] Performed By: #### 2 4323-8, LIP, 2132-9 #### [facility] CLIA [id number] [address] [place] [address] [place] Basophils/100 WBC (Bld) 1.1 % Normal [facility] Comment on above: Order Comment: Speci men Type: BLOOD SPECIMEN Ordering Facility: [facility] Address: [address] [place] [address] Performed By: #### 2 4323-8, LIPNF, 2132-01 #### [facility] CLIA [id number] [address] [place] [address] [place] Differential cell count method Nom (Bld) Auto Normal [facility] Comment on above: Order Comment: Speci men Type: BLOOD SPECIMEN Ordering Facility: [facility] Address: [address] [place] [address] Performed By: #### 2 4323-8, LIPNF, 2132-01 #### [facility] CLIA [id number] [address] [place] [address] [place] Eosinophils (Bld) [#/Vol] 0.12 10*3/uL Normal <0.46 [facility] Comment on above: Order Comment: Speci men Type: BLOOD SPECIMEN Ordering Facility: [facility] Address: [address] [place] [address] Performed By: #### 2 4323-8, LIPNF, 2132-01 #### [facility] CLIA [id number] [address] [place] [address] [place] Eosinophils/100 WBC (Bld) 1.8 % Normal [facility] Comment on above: Order Comment: Speci men Type: BLOOD SPECIMEN Ordering Facility: [facility] Address: [address] [place] [address] Performed By: #### 2 4323-8, LIPNF, 2132-01 #### [facility] CLIA [id number] [address] [place] [address] [place] Erythrocyte distribution width (RBC) [Ratio] 13.0 % Normal 11.5-15.0 [facility] Comment on above: Order Comment: Speci men Type: BLOOD SPECIMEN Ordering Facility: [facility] Address: [address] [place] [address] Performed By: #### 2 432-8, LIPNF, 2132-01 #### [facility] CLIA [id number] [address] [place] [address] [place] Hematocrit (Bld) [Volume fraction] 41.7 % Normal 36.0-46.0 [facility] Comment on above: Order Comment: Speci men Type: BLOOD SPECIMEN Ordering Facility: [facility] Address: [address] [place] [address] Performed By: #### 2 4323-8, LIPNF, 2132-01 #### [facility] CLIA [id number] [address] [place] [address] [place] Hemoglobin (Bld) [Mass/Vol] 13.5 g/dL Normal 11.5-15.5 [facility] Comment on above: Order Comment: Speci men Type: BLOOD SPECIMEN Ordering Facility: [facility] Address: [address] [place] [address] Performed By: #### 2 432-8, LIPNF, 2132-01 #### [facility] CLIA [id number] [address] [place] [address] [place] Immature granulocytes (Bld) [#/Vol] 10*3/uL Normal <0.10 [facility] Comment on above: Order Comment: Speci men Type: BLOOD SPECIMEN Ordering Facility: [facility] Address: [address] [place], [place] [address] Performed By: #### 2 4323-8, LIPNF, 2132-01 #### [facility] CLIA [id number] [address] [place] [address] [place] Immature granulocytes/100 WBC (Bld) 0.3 % Normal [facility] Comment on above: Order Comment: Speci men Type: BLOOD SPECIMEN Ordering Facility: [facility] Address: [address] [place] [address] Performed By: #### 2 4323-8, LIPNF, 2132-01 #### [facility] CLIA [id number] [address] [place] [address] [place] Lymphocytes (Bld) [#/Vol] 2.44 10*3/uL Normal 1.00-4.00 [facility] Comment on above: Order Comment: Speci men Type: BLOOD SPECIMEN Ordering Facility: [facility] Address: [address] [place] [address] Performed By: #### 2 4323-8, LIPNF, 2132-01 #### [facility] CLIA [id number] [address] [place] [address] [place] Lymphocytes/100 WBC (Bld) 37.0 % Normal [facility] Comment on above: Order Comment: Speci men Type: BLOOD SPECIMEN Ordering Facility: [facility] Address: [address] [place] [address] Performed By: #### 2 4323-8, LIPNF, 2132-01 #### [facility] CLIA [id number] [address] [place] [address] [place] MCH (RBC) [Entitic mass] 30.0 pg Normal 26.0-34.0 [facility] Comment on above: Order Comment: Speci men Type: BLOOD SPECIMEN Ordering Facility: [facility] Address: [address] [place] [address] Performed By: #### 2 4323-8, LIPNF, 2132-01 #### [facility] CLIA [id number] [address] [place] [address] [place] MCHC (RBC) [Mass/Vol] 32.4 g/dL Normal 30.5-36.0 [facility] Comment on above: Order Comment: Speci men Type: BLOOD SPECIMEN Ordering Facility: [facility] Address: [address] [address] Performed By: #### 2 432-8, LIPNF, 2132-01 #### [facility] CLIA [id number] [address] [place] [address] [place] MCV (RBC) [Entitic vol] 92.7 fL Normal 80.0-100.0 [facility] Comment on above: Order Comment: Speci men Type: BLOOD SPECIMEN Ordering Facility: [facility] Address: [address] [place] [address] Performed By: #### 2 4323-8, LIPNF, 2132-01 #### [facility] CLIA [id number] [address] [place] [address] [place] Monocytes (Bld) [#/Vol] 0.50 10*3/uL Normal <0.87 [facility] Comment on above: Order Comment: Speci men Type: BLOOD SPECIMEN Ordering Facility: [facility] Address: [address] [place] [address] Performed By: #### 2 4323-8, LIPNF, 2132-01 #### [facility] CLIA [id number] [address] [place] [address] [place] Monocytes/100 WBC (Bld) 7.6 % Normal C [facility] Comment on above: Order Comment: Speci men Type: BLOOD SPECIMEN Ordering Facility: [facility] Address: [address] [place] [address] Performed By: #### 2 432-8, LIPNF, 2132-01 #### [facility] CLIA [id number] [address] [place] [address] [place] Neutrophils (Bld) [#/Vol] 3.44 10*3/uL Normal 1.45-7.50 [facility] Comment on above: Order Comment: Speci men Type: BLOOD SPECIMEN Ordering Facility: [facility] Address: [address] [place] [address] Performed By: #### 2 432-8, LIPNF, 2132-01 #### [facility] CLIA [id number] [address] [place] [address] [place] Neutrophils/100 WBC (Bld) 52.2 % Normal [facility] Comment on above: Order Comment: Speci men Type: BLOOD SPECIMEN Ordering Facility: [facility] Address: [address] [place] [address] Performed By: #### 2 432-8, LIPNF, 2132-01 #### [facility] CLIA [id number] [address] [place] [address] [place] Nucleated RBC (Bld) [#/Vol] 10*3/uL Normal <0.01 [facility] Comment on above: Order Comment: Speci men Type: BLOOD SPECIMEN Ordering Facility: [facility] Address: [address] [place] [address] Performed By: #### 2 4328, LIPNF, 2132-01 #### [facility] CLIA [id number] [address] [place] [address] [place] Nucleated RBC/100 WBC (Bld) [Ratio] 0.0 /100 WBC Normal [facility] Comment on above: Order Comment: Speci men Type: BLOOD SPECIMEN Ordering Facility: [facility] Address: [address] [place] [address] Performed By: #### 2 432-8, LIPNF, 2132-01 #### [facility] CLIA [id number] [address] [place] [address] [place] Platelet mean volume (Bld) [Entitic vol] 10.2 fL Normal 9.0-12.7 [facility] Comment on above: Order Comment: Speci men Type: BLOOD SPECIMEN Ordering Facility: [facility] Address: [address] [place] [address] Performed By: #### 2 4323-8, LIPNF, 2132-01 #### [facility] CLIA [id number] [address] [place] [address] [place] Platelets (Bld) [#/Vol] 247 10*3/uL Normal 150-400 [facility] Comment on above: Order Comment: Speci men Type: BLOOD SPECIMEN Ordering Facility: [facility] Address: [address] [place] [address] Performed By: #### 2 4323-8, LIZZY, 2132-01 #### [facility] CLIA [id number] [address] [place] [address] [place] RBC (Bld) [#/Vol] 4.50 10*6/uL Normal 3.90-5.20 [facility] Comment on above: Order Comment: Speci men Type: BLOOD SPECIMEN Ordering Facility: [facility] Address: [address] [place] [address] Performed By: #### 2 4323-8, LIZZY, 9 #### [facility] CLIA [id number] [address] [place] [address] [place] WBC (Bld) [#/Vol] 6.59 10*3/uL Normal 3.70-11.00 [facility] Comment on above: Order Comment: Speci men Type: BLOOD SPECIMEN Ordering Facility: [facility] Address: [address] [place] [address] Performed By: #### 2 4323-8, LIZZY, 9 #### [facility] IA [id number] [address] [place] [address] [place] CNOVon 08-01-2024 CNOV Office Visit (INTMWS ) -------- ALEXANDER XIAO ([id number]) 1940 F Date Time Provider Department 08/01/24 2:00 PM CHRISTINA EDMONDS During your visit today, [...] 120/68 Pulse 80 Ht 173 cm (5' 8.11) Wt 66.8 kg (147 lb 4.3 oz) [...] surgery and is currently in rehabilitation at [facility] which has been a significant adjustment for her. Family has spoke with admissions there and has been able to arrange for her to go to [facility] for respite care and stay in a room with Robert. Alexander had a skin tear on her leg after sliding out of her ehcjhab-dt-yte's truck. The wound is reportedly improving and is not causing pain. She has been using bacitracin ointment for the wound. She has a history of low B12 and vitamin D levels. She had breakfast around 1030 today and has not yet had lunch. The patient/family consented to the use of [employer] software for draft documentation of the visit consistent with [facility]?s Notice of Privacy Practices. Her medications [...] daily at bedtime. Underpads 30 X 30 pads 1 Each once daily. Current Facility-Administered [...] of Systems (more content not included)... Normal [facility] Comprehensive metabolic 2000 panelon 08-01-2024 Albumin [Mass/Vol] 4.4 g/dL Normal 3.9-4.9 [facility] Comment on above: Order Comment: Speci men Type: BLOOD SPECIMEN Ordering Facility: [facility] Address: [address] [place] [address] Performed By: #### 2 4323-8, LIPNF, 2132-01 #### [facility] CLIA [id number] [address] [place] [address] [place] ALP [Catalytic activity/Vol] 63 U/L Normal 34-123 [facility] Comment on above: Order Comment: Speci men Type: BLOOD SPECIMEN Ordering Facility: [facility] Address: [address] [place] [address] Performed By: #### 2 4323-8, LIPNF, 2132-01 #### [facility] CLIA [id number] [address] [place] [address] [place] ALT [Catalytic activity/Vol] 18 U/L Normal 7-38 [facility] Comment on above: Order Comment: Speci men Type: BLOOD SPECIMEN Ordering Facility: [facility] Address: [address] [place] [address] Performed By: #### 2 4323-8, LIPNF, 2132-01 #### [facility] CLIA [id number] [address] [place] [address] [place] Anion gap [Moles/Vol] 14 mmol/L Normal 8-15 [facility] Comment on above: Order Comment: Speci men Type: BLOOD SPECIMEN Ordering Facility: [facility] Address: [address] [place] [address] Performed By: #### 2 4323-8, LIPNF, 2132-01 #### [facility] CLIA [id number] [address] [place] [address] [place] AST [Catalytic activity/Vol] 24 U/L Normal 13-35 [facility] Comment on above: Order Comment: Speci men Type: BLOOD SPECIMEN Ordering Facility: [facility] Address: [address] [place], [place] [id number] Performed By: #### 2 432-8, LIPNF, 2132-01 #### [facility] CLIA [id number] [address] [place] [id number] [place] Bilirubin [Mass/Vol] 0.7 mg/dL Normal 0.2-1.3 [facility] Comment on above: Order Comment: Speci men Type: BLOOD SPECIMEN Ordering Facility: [facility] Address: [address] [place] [address] Performed By: #### 2 432-8, LIPNF, 2132-01 #### [facility] CLIA [id number] [address] [place], [place] [address] [place] Calcium [Mass/Vol] 10.2 mg/dL Normal 8.5-10.2 [facility] Comment on above: Order Comment: Speci men Type: BLOOD SPECIMEN Ordering Facility: [facility] Address: [address] [place], [place] [address] Performed By: #### 2 4323-8, LIPNF, 2132-01 #### [facility] CLIA [id number] [address] [place], [place] [address] [place] Chloride [Moles/Vol] 102 mmol/L Normal 98-107 [facility] Comment on above: Order Comment: Speci men Type: BLOOD SPECIMEN Ordering Facility: [facility] Address: [address] [place], [place] [address] Performed By: #### 2 4323-8, LIPNF, 2132-01 #### [facility] CLIA [id number] [address] [place] [address] [place] CO2 [Moles/Vol] 25 mmol/L Normal 22-30 [facility] Comment on above: Order Comment: Speci men Type: BLOOD SPECIMEN Ordering Facility: [facility] Address: [address] [place] [address] Performed By: #### 2 4323-8, LIPJENNIFER, 2132-01 #### [facility] CLIA [id number] [address] [place] [address] [place] Creatinine [Mass/Vol] 0.76 mg/dL Normal 0.58-0.96 [facility] Comment on above: Order Comment: Speci men Type: BLOOD SPECIMEN Ordering Facility: [facility] Address: [address] [place] [address] Performed By: #### 2 4323-8, LIPJENNIFER, 2132-01 #### [facility] CLIA [id number] [address] [place] [address] [place] Creatinine and Glomerular filtration rate.predicted panel (S/P/Bld) 78 mL/min/1.73m??? Normal >=60 [facility] Comment on above: Order Comment: Jourdan rodas Type: BLOOD SPECIMEN Ordering Facility: [facility] Address: [address] [place] [address] Result Comment: Laura mated Glomerular Filtration Rate [...] actual GFR. Performed By: #### 2 4323-8, LIPNF, 2132-01 #### [facility] CLIA [id number] [address] [place] [address] [place] Glucose [Mass/Vol] 160 mg/dL High 74-99 [facility] Comment on above: Order Comment: Speci men Type: BLOOD SPECIMEN Ordering Facility: [facility] Address: [address] [place] [address] Result Comment: The [place] Diabetes Association (ADA) provides guidance for cutoff [...] Standards of Medical Care in Diabetes 2016, [place] Diabetes Association. Diabetes Care. 2016.39(Suppl 1). Performed By: #### 2 4323-8, LIPNF, 2132-01 #### [facility] CLIA [id number] [address] [place] [address] [place] Potassium [Moles/Vol] 4.3 mmol/L Normal 3.7-5.1 [facility] Comment on above: Order Comment: Jourdan rodas Type: BLOOD SPECIMEN Ordering Facility: [facility] Address: [address] [place] [address] Performed By: #### 2 4323-8, LIPNF, 2132-01 #### [facility] CLIA [id number] [address] [place] [address] [place] Protein [Mass/Vol] 6.9 g/dL Normal 6.3-8.0 [facility] Comment on above: Order Comment: Jourdan rodas Type: BLOOD SPECIMEN Ordering Facility: [facility] Address: [address] [place] [address] Performed By: #### 2 4323-8, LIPNF, 2132-01 #### [facility] CLIA [id number] [address] [place] [address] [place] Sodium [Moles/Vol] 141 mmol/L Normal 136-144 [facility] Comment on above: Order Comment: Jourdan rodas Type: BLOOD SPECIMEN Ordering Facility: [facility] Address: [address] [place] [address] Performed By: #### 2 4323-8, LIPJENNIFER, 2132-01 #### [facility] CLIA [id number] [address] [place] [address] [place] Urea nitrogen [Mass/Vol] 12 mg/dL Normal 7-21 [facility] Comment on above: Order Comment: Jourdan men Type: BLOOD SPECIMEN Ordering Facility: [facility] Address: [address] [place] [address] Performed By: #### 2 4323-8, LIPJENNIFER, 2132-01 #### [facility] CLIA [id number] [address] [place] [address] [place] HbA1c (Bld)on 08-01-2024 Average glucose Estimated from glycated hemoglobin (Bld) [Mass/Vol] 194 mg/dL Normal [facility] Comment on above: Order Comment: Jourdan rodas Type: BLOOD SPECIMEN Ordering Facility: [facility] Address: [address] [place] [address] Result Comment: eAG: (Estimated average glucose) is a calculated value from HgbA1c and is direct customer service representative of the average blood glucose level in the last 2-3 month period. Performed By: #### 2 4323-8, LIPNF, 2132-01 #### [facility] CLIA [id number] [address] [place] [address] [place] HbA1c (Bld) [Mass fraction] 8.4 % High 4.3-5.6 [facility] Comment on above: Order Comment: Jourdan rodas Type: BLOOD SPECIMEN Ordering Facility: [facility] Address: [address] [place] [address] Result Comment: Amer [place] Diabetes Association guidelines indicate that patients with HgbA1c in the range 5.7-6.4% are at increased risk for development of diabetes, and intervention by lifestyle modification may be beneficial. HgbA1c greater or equal to 6.5% is considered diagnostic of diabetes. Performed By: #### 2 4323-8, LIPNF, 2132-01 #### [facility] CLIA [id number] [address] [place] [address] [place] LIPID PANEL, NONFASTINGon Cholesterol [Mass/Vol] 161 mg/dL Normal <200 [facility] Comment on above: Order Comment: Speci men Type: BLOOD SPECIMEN Ordering Facility: [facility] Address: [address] [place] [address] Result Comment: <200 mg/dL, Desirable 200-239 mg/dL, Borderline high >239 mg/dL, High Performed By: #### 2 4323-8, LIPNF, 2132-01 #### [facility] CLIA [id number] [address] [place] [address] [place] HDL CHOLESTEROL, NF 69 mg/dL Normal >39 [facility] Comment on above: Order Comment: Jourdan [facility] Type: BLOOD SPECIMEN Ordering Facility: [facility] Address: [address] [place] [address] Result Comment: 40-5 9 mg/dL, Acceptable >59 mg/dL, High: Negative risk factor for coronary heart disease <40 mg/dL, Low: Positive risk factor for coronary heart disease Performed By: #### 2 4323-8, LIPNF, 2132-01 #### [facility] CLIA [id number] [address] [place] [address] [place] LDL CHOLESTEROL, NF 60 mg/dL Normal <100 [facility] Comment on above: Order Comment: Manniei [facility] Type: BLOOD SPECIMEN Ordering Facility: [facility] Address: [address] [place] [address] Result Comment: <100 mg/dL, Optimal 100-129 mg/dL, Near optimal/above optimal 130-159 mg/dL, Borderline high 160-189 mg/dL, High >189 mg/dL, Very high Secondary prevention optimal LDL Cholesterol levels are recommended to be < 70 mg/dL Performed By: #### 2 4323-8, LIPNF, 2132-01 #### [facility] CLIA [id number] [address] [place], [place] [address] [address] [place] LDL/HDL RATIO, NF 0.87 mg/dL Normal <2.54 [facility] Comment on above: Order Comment: Speci men Type: BLOOD SPECIMEN Ordering Facility: [facility] Address: [address] [place] [address] Result Comment: Refe rence: 1. National Cholesterol Education Program ATP III Guideline At-A-Glance Quick Desk Reference: National Heart, Lung, and Blood Counce. National Institutes of Health. 2001: NIH Publication No. 01-3305. 2. An International Atherosclerosis Society position paper: global recommendations for the management of dyslipidemia: executive summary, Atherosclerosis. 2014: 232(2):410-413. Performed By: #### 2 4323-8, LIPNF, 2132-01 #### [facility] CLIA [id number] [address] [place] [address] [place] [facility] NON HDL CHOL, NF 92 mg/dL Normal <130 [facility] Comment on above: Order Comment: Speci men Type: BLOOD SPECIMEN Ordering Facility: [facility] Address: [address] [place] [address] Result Comment: <130 mg/dL, Optimal 130-159 mg/dL, Near optimal/above optimal 160-189 mg/dL, Borderline high 190-219 mg/dL, High >219 mg/dL, Very high Secondary prevention optimal non HDL Cholesterol levels are recommended to be <100 mg/dL Performed By: #### 2 4323-8, LIPNF, 2132-01 #### [facility] CLIA [id number] [address] [place] [address] [place] T CHOL/HDL RATIO NF 2.33 mg/dL Normal <5.10 [facility] Comment on above: Order Comment: Speci men Type: BLOOD SPECIMEN Ordering Facility: [facility] Address: [address] [place] [address] Performed By: #### 2 4323-8, LIPNF, 2132-01 #### [facility] CLIA [id number] [address] [place] [address] [place] TRIGLYCERIDES, NF 159 mg/dL High <150 [facility] Comment on above: Order Comment: Speci men Type: BLOOD SPECIMEN Ordering Facility: [facility] Address: [address] [place] [address] Result Comment: <150 mg/dL, Normal 150-199 mg/dL, Borderline high 200-499 mg/dL, High >499 mg/dL, Very high Performed By: #### 2 4323-8, LIPNF, 2132-01 #### [facility] CLIA [id number] [address] [place] [address] [place] VLDL CHOLESTEROL, NF 32 mg/dL High <30 [facility] Comment on above: Order Comment: Speci men Type: BLOOD SPECIMEN Ordering Facility: [facility] Address: [address] [place] [address] Performed By: #### 2 4323-8, LIPNF, 2132-01 #### [facility] CLIA [id number] [address] [place] [address] [place] Vit B12 [facility] 025 Cobalamin (Vitamin B12) [Mass/Vol] 247 pg/mL Normal 232-1245 [facility] Comment on above: Order Comment: Speci men Type: BLOOD SPECIMEN Ordering Facility: [facility] Address: [address] [place] [address] Performed By: #### 2 4323-8, LIPNF, 2132-01 #### [facility] CLIA [id number] [address] [place] [address] [place] Yue 07-28-2024 CHRISTOPHER Telephone (INTMWS) -------- LANGALEXANDER ([id number]) 1940 F Date Time Provider Department 07/28/24 CHRISTINA EDMONDS During your visit today, we recorded the following information about you: Sunita Ocampo LPN 07/28/2024 1:23 PM Signed Patient manuel Negrete calling she has started the process of having her aunt admitted to [facility]. She said needed letter and copy of last office notes from 03/2024 signed. Advised [facility] usually needs a more recent office visit note and admission orders completed. She said has appt scheduled for end of July with Christina. Tamara Michelle, OWEN 07/31/2024 12:09 PM Signed Ruby with [facility] calls to request most recent OV note and med list for respite stay at [facility]. Faxed to [phone] per request. Ruby aware that it is [...] process began to get her admitted to [facility] [Other] Prescriptions as of 08/01/2024 - busPIRone [...] at bedtime. - Underpads 30 X 30 pads 1 Each once daily. 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 Corey Ho, RN 07/24/2024 2:52 PM Signed Called and spoke with pharmacist at [facility]. She asked if pt was [...] at bedtime. - Underpads 30 X 30 pads 1 Each once daily. 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] 07/12/2023 Encounter Status:Closed by COREY HO on 07/24/24 [facility] 07-19-2024 CNOV Office Visit (UCWSTR ) -------- ALEXANDER XIAO ([id number]) 1940 F Date Time Provider Department 07/19/24 5:30 PM GEMMA SAEED During your visit today, we recorded the [...] 90 tabletRfl: 3 Underpads 30 X 30 pads1 Each once daily.Disp: 100 EachRfl: 3 [...] BACITRACIN 500 UNIT/GRAM TOPICAL OINTMENT Gemma Saeed APRN.HIGH [employer]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 Normal [facility] 05-23-2024 [facility] Telephone (INTMWS) -------- ALEXANDER XIAO ([id number]) 1940 F Date Time Provider Department 05/23/24 [...] at bedtime. - Underpads 30 X 30 pads 1 Each once daily. 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 Nurse Visit (FAMPWS) -------- ALEXANDER XIAO ([id number]) 1940 F Date Time Provider Department 05/17/24 2:15 PM [place] NURSE FAMPWS During your visit today, we [...] at bedtime. - Underpads 30 X 30 pads 1 Each once daily. 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 Nurse Visit (FAMPWS) -------- ALEXANDER XIAO ([id number]) 1940 Date Time Provider Department 05/08/24 1:15 PM [place] NURSE FAMPWS During your visit today, we [...] at bedtime. - Underpads 30 X 30 pads 1 Each once daily. 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 Nurse Visit (FAMPWS) -------- ALEXANDER XIAO ([id number]) 1940 F Date Time Provider Department 05/01/24 1:30 PM [place] NURSE MARY During your visit today, we [...] at bedtime. - Underpads 30 X 30 pads 1 Each once daily. 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 - Underpads 30 X 30 pads 1 Each once daily. Facility-Administered Medications [...] Encounter Status:Closed by KILEY TAVAREZ on 04/28/24 [facility] Telephone (GERIWR) -------- ALEXANDER XIAO ([id number]) 1940 F Date Time Provider Department 04/27/24 [...] at bedtime. - Underpads 30 X 30 pads 1 Each once daily. Problem List [...] Status:Closed by Herman MARINO on 04/27/24 Normal [facility] CNOVon 04-26-2024 CNOV Office Visit (GERIWR ) -------- ALEXANDER XIAO ([id number]) 1940 F Date Time Provider Department 04/26/24 2:30 PM JOSE JENKINS During your visit today, we recorded the following information about you: Pulse Respiration Blood pressure Weight Normal [facility] Vit B12 SerPl-ncon 024 Cobalamin (Vitamin B12) [Mass/Vol] 169 pg/mL Low 232-1245 [facility] Comment on above: Order Comment: Speci men Type: BLOOD SPECIMEN Ordering Facility: [facility] Address: [address] [place] [address] Performed By: #### 2 [id number], LIZZY [id number] #### [facility] [place] [id number] [address] [place] [address] [place] CNOVon 04-25-2024 CNOV Office Visit (PODIWS ) -------- ALEXANDER XIAO ([id number]) 1940 F Date Time Provider Department 04/25/24 1:00 PM DAGMAR ORTIZ During your visit today, we recorded the following information about you: Loraine Santiago LPN 04/25/2024 1:45 PM Signed AMB ROOMING INTAKE FLOWSHEET DATA Patient presents with: Left Foot - Established Patient, Follow Up, Diabetic Foot Care Right Foot - Established Patient, Follow Up, Diabetic Foot Care Loraine SantiagoTOSHA Matthew 04/25/2024 1:45 PM Signed Subjective: Patient [...] Objective: Patient presents to clinic ambulating [facility] Vasc: DP and PT pulses are palpable [...] Dagmar Ortiz DPM Referring Provider: DAGMAR ORTIZ [[id number]] Allergies As of Date: 04/25/2024 (No Known [...] at bedtime. - Underpads 30 X 30 pads 1 Each once daily. 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 Underpads 30 X 30 pads 1 Each once daily. No current [...] and t (more content not included)... [facility] Tele[facility] (INTMWS) -------- ALEXANDER XIAO ([id number]) 1940 F Date Time Provider Department 02/10/24 [...] N/A Please return call to , Jude [phone] Was an appointment scheduled: No Closing statement: Results or non-symptom based questions: Thank you for calling [facility], your call will be returned within [...] Date Reviewed: 01/25/2024 Reviewed by: Rach Gatica, OWEN - Fully Assessed Reason for Visit: Medication [...] at bedtime. - Underpads 30 X 30 pads 1 Each once daily. Problem List [...] Encounter Status:Closed by CHRISTINA EDMONDS on 02/11/24 [facility] CNOVarleen 01-25-2024 CNOV Office Visit (PODIWS ) -------- ALEXANDER XIAO ([id number]) 1940 F Date Time Provider Department 01/25/24 11:00 AM DAGMAR ORTIZ During your visit today, we recorded the following information about you: Rach Gatica RN 01/25/2024 11:21 AM Signed Patient [...] or sore from your shoes, do not pop it. Apply a bandage and wear a different pair of shoes. Take Care of Your Toenails Cut toenails after bathing, when they are soft. Cut toenails straight across and smooth with a nail file. Avoid cutting into the corners of toes. Do not cut cuticles. If you have neuropathy (or decreased sensation in your feet) a cloth shrinking machine operator should always cut your toenails. Be Careful [...] your shoes are too tight. Perform the footwear test described below. Footwear Test Use this simple [...] Go to your health care provider or cloth shrinking machine operator to treat these conditions. Dagmar Ortiz 01/25/2024 [...] Patient presents to clinic ambulating in k canadian tennis shoes Vasc: DP and PT pulses are nonpalpabe left and faintly palpable right. C (more content not included)... Normal [facility] Laboratory - Drug toxicology Ordered By: Emir Zhou on 06-22-2023 Amphetamines Ql (U) Negative <1000 ng/mL [facility] Benzodiazepines Ql (U) Negative < 200 ng/mL [facility] Cannabinoids Screen Ql (U) Negative < 50 ng/mL [facility] Cocaine Ql (U) Negative < 300 ng/mL [facility] Opiates Ql (U) Negative < 300 ng/mL [facility] No Panel InformationOrdered By: Emir Zhou on 06-22-2023 MDMA (Ecstasy) Screen Negative < 500 ng/mL [facility] Urine Barbiturates Screen Negative < 200 ng/mL [facility] Urine Drug Screen Comment [facility] Comment on above: CONFIRMATORY TESTING FOR ALL [...] Urine Methadone Screen Negative < 300 ng/mL [facility] Thin prep Papanicolaou smear with manual screeningOrdered By: Teddy Turpin on 06-22-2023 Thin prep Papanicolaou smear with manual screening 177 mg/dL 74-106 [facility] Comment on above: MANAGEMENT OF PATIEN T CARE PER NURSING PROTOCOL Urine phencyclidine (PCP) de tectionOrdered By: Emir Zhou on 06-22-2023 Phencyclidine Ql (U) Negative < 25 ng/mL [facility] Absolute lymphocyte countOrd ered By: Viri Mcclelland on 06-20-2023 Lymphocytes Auto (Unsp spec) [#/Vol] 1.77 10*3/uL 0.83-4.51 [facility] Automated lymphocyte count a s percentage of total leukocytesOrdered By: Viri Mcclelland on 06-20-2023 Lymphocytes/100 WBC Auto (Unsp spec) 35.5 % 19-41 [facility] Basophil percentageOrdered B y: Viri Mcclelland on 06-20-2023 Basophils/100 WBC (Bld) 1.0 % 0-1 [facility] Bilirubin [Mass/Vol] 1.10 mg/dL 0.20-1.00 [facility] Comment on above: For patients on eltr ombopag therapy, use of Dimension Wilder TBIL is not recommended. Chloride [Moles/Vol] 104 mmol/L 98-107 [facility] Eosinophils/100 WBC (Bld) 1.8 % 0-5 [facility] Glucose [Mass/Vol] 315 mg/dL 74-106 [facility] Comment on above: Glucose result great er than or equal to 200 mg/dLsuggests DIABETES MELLITUS per A.D.A. criteria. Hemoglobin (Bld) [Mass/Vol] 14.1 g/dL 12.0-15.0 [facility] Monocytes/100 WBC (Bld) 10.2 % 0-10 [facility] Neutrophils (Bld) [#/Vol] 2.6 10*3/uL 2.0-7.7 [facility] Neutrophils/100 WBC (Bld) 51.1 % 47-70 [facility] Potassium [Moles/Vol] 3.8 mmol/L 3.5-5.1 [facility] Protein [Mass/Vol] 5.9 g/dL 6.4-8.2 [facility] Sodium [Moles/Vol] 136 mmol/L 136-145 [facility] WBC (Bld) [#/Vol] 5.0 10*3/uL 4.4-11.0 [facility] Determination of erythrocyte mean corpuscular volume (MCV)Ordered By: Viri Mcclelland on 06-20-2023 MCV (RBC) [Entitic vol] 88.1 fL 81-99 [facility] Erythrocyte distribution wid th ratioOrdered By: Viri Mcclelland on 06-20-2023 Erythrocyte distribution width (RBC) [Ratio] 12.9 % 11.6-14.6 [facility] Erythrocyte distribution wid th standard deviationOrdered By: Viri Mcclelland on 06-20-2023 Erythrocyte distribution width (RBC) [Entitic vol] 42.0 fL 35.1-43.9 [facility] Hematocrit Auto (Bld) [Volum e fraction]Ordered By: Viri Mcclelland on 06-20-2023 Hematocrit (Bld) [Volume fraction] 42.0 % 37-47 [facility] Immature granulocytes/100 WB C Auto (Bld)Ordered By: Viri Mcclelland on 06-20-2023 Immature granulocytes/100 WBC (Bld) 0.400 % 0.0-0.9 [facility] Comment on above: IG% - Immature Granu locytes (promyelocytes, myelocytes and metamyelocytes) > 1% indicates that a LEFT SHIFT is Present. Laboratory - Chemistry and C hemistry - challengeOrdered By: Viri Mcclelland on 06-20-2023 Albumin/Globulin [Mass ratio] 1.1 {ratio} 0.9-2.4 [facility] ALP [Catalytic activity/Vol] 68 U/L 45-117 [facility] ALT [Catalytic activity/Vol] 18 U/L 13-56 [facility] CO2 [Moles/Vol] 26.0 mmol/L 21.0-32.0 [facility] Cobalamin (Vitamin B12) [Mass/Vol] 211 pg/mL 211-911 [facility] Globulin (S) [Mass/Vol] 2.8 g/dL 2.2-4.2 [facility] Urea nitrogen/Creatinine [Mass ratio] 13.5 mg/mg 10-20 [facility] Laboratory - Hematology and Cell countsOrdered By: Viri Mcclelland on 06-20-2023 MCH (RBC) [Entitic mass] 29.6 pg 27.0-32.0 [facility] MCHC (RBC) [Mass/Vol] 33.6 g/dL 32-36 [facility] Nucleated RBC/100 WBC (Bld) [Ratio] 0 % 0-5 [facility] Platelet mean volume (Bld) [Entitic vol] 9.7 fL 6.2-12.0 [facility] Platelets (Bld) [#/Vol] 172 10*3/uL 150-450 [facility] No Panel InformationOrdered By: Viri Mcclelland on 06-20-2023 Estimated Creatinine Clearance Calc 53.36 ml/min [facility] Estimated GFR (MDRD) Amer 86 mL/min >60 [facility] Comment on above: GFR Calc Estimated GFR (MDRD) Non-Af Amer 71 mL/min >60 [facility] Comment on above: Non- GFR Calc RBC Auto (Bld) [#/Vol]Ordere d By: Viri Mcclelland on 06-20-2023 RBC (Bld) [#/Vol] 4.77 10*6/uL 4.2-5.4 [facility] Serum Treponema species anti body detectionOrdered By: Viri Mcclelland on 06-20-2023 Treponema sp Ab Ql (S) Non-Reactive [facility] Serum or plasma calcium yumiko urement (mass/volume)Ordered By: Viri Mcclelland on 06-20-2023 Calcium [Mass/Vol] 9.1 mg/dL 8.5-10.1 [facility] Serum or plasma creatinine m easurement (mass/volume)Ordered By: Viri Mcclelland on 06-20-2023 Creatinine [Mass/Vol] 0.82 mg/dL 0.55-1.02 [facility] Comment on above: The validity of the calculated GFR & GFRAA in patients over 70 years has not been determined. Clinical correlation is essential. Serum or plasma urea nitroge n measurement (mass/volume)Ordered By: Viri Mcclelland on 06-20-2023 Urea nitrogen [Mass/Vol] 11 mg/dL 7-18 [facility] Thin prep Papanicolaou smear with manual screeningOrdered By: Viri Mcclelland on 06-20-2023 Thin prep Papanicolaou smear with manual screening 3.1 g/dL 3.2-5.0 [facility] Thin prep Papanicolaou smear with manual screening 16 U/L 15-37 [facility] Thin prep Papanicolaou smear with manual screening 6 5-15 [facility] Basophil percentageOrdered B y: Artur Gallardo on 06-19-2023 Basophil percentage 0 SEEN /hpf 0-5 [facility] Bilirubin Test strip Ql (U)O rdered By: Artur Gallardo on 06-19-2023 Bilirubin Ql (U) Negative Negative [facility] Erythrocyte sedimentation ra teOrdered By: Viri Mcclelland on 06-19-2023 ESR (Bld) [Velocity] 3 mm/h 0-30 [facility] Ketones Test strip Ql (U)Ord ered By: Artur Gallardo on 06-19-2023 Ketones Ql (U) 5 mg/dl Negative [facility] Laboratory - Microbiology an d Antimicrobial susceptibilityOrdered By: Artur Gallardo on 06-19-2023 SARS-CoV-2 (COVID-19) RNA MOLLY+probe Ql (Unsp spec) [facility] Mucus LM Ql (Urine sed)Order ed By: Artur Gallardo on 06-19-2023 Mucus Ql (Urine sed) 0 SEEN /hpf [facility] Nitrite Test strip Ql (U)Ord ered By: Artur Gallardo on 06-19-2023 Nitrite Ql (U) Negative Negative [facility] No Panel InformationOrdered By: Artur Gallardo on 06-19-2023 Urine RBC 0 SEEN /hpf 0-5 [facility] Troponin I High Sensitivity 9 pg/mL 3.0-54.0 [facility] Comment on above: Please Note: New Farnaz t Units and Gender Specific Reference Ranges. For more information see Policy Stat Procedure Wilder High Sensitivity Troponin (TNIH) and attachments. No Panel InformationOrdered By: Viri Mcclelland on 06-19-2023 C-Reactive Protein Extended Range < 2.90 mg/L 0.0-3.0 [facility] Comment on above: C-Reactive Protein ( CRP) provides useful information for thediagnosis, therapy and monitoring of inflammatory processesand associated diseases. For the evaluation of Relative Riskfor Cardiovascular Disease, a High Sensitivity CRP (HSCRP)should be ordered. Folate 19.10 ng/mL 3.1-55.4 [facility] Free Triiodothyronine (T3) pg/dL 1.9 pg/mL 2.18-3.98 [facility] Protein Test strip Ql (U)Ord ered By: Artur Gallardo on 06-19-2023 Protein Ql (U) Negative Negative [facility] Serum or plasma thyroid stim ulating hormone (TSH) measurement (units/volume)Ordered By: Viri Mcclelland on 06-19-2023 TSH Qn 18.30 uIU/mL 0.358-3.74 [facility] Squamous epithelial cells de tection in urine sediment by light microscopyOrdered By: Artur Gallardo on 06-19-2023 Epithelial cells.squamous LM Ql (Urine sed) 0-5 SEEN /hpf 5-10 [facility] Thin prep Papanicolaou smear with manual screeningOrdered By: Viri Mcclelland on 06-19-2023 Thin prep Papanicolaou smear with manual screening 0.69 ng/dL 0.76-1.46 [facility] Urine blood detectionOrdered By: Artur Gallardo on 06-19-2023 RBC Ql (U) Negative Negative [facility] Urine clarityOrdered By: Isaac Gallardo on 06-19-2023 Clarity (U) Clear Clear [facility] Urine color determinationOrd ered By: Artur Gallardo on 06-19-2023 Color (U) Yellow Yellow [facility] Urine glucose detectionOrder ed By: Artur Gallardo on 06-19-2023 Glucose Ql (U) 1000 mg/dl Normal [facility] Urine leukocyte esterase det ection by dipstickOrdered By: Artur Gallardo on 06-19-2023 Leukocyte esterase Test strip Ql (U) Negative Negative [facility] Urine pHOrdered By: Artur arroyo on 06-19-2023 pH (U) 6.0 [pH] 5.0 - 8.0 [facility] Urine sediment bacteria coun t by microscopy (number/high power field)Ordered By: Artur Gallardo on 06-19-2023 Bacteria LM.HPF (Urine sed) [#/Area] 0 /[HPF] None Seen [facility] Urine specific gravity measu rementOrdered By: Artur Gallardo on 06-19-2023 Specific gravity (U) [Rel density] 1.015 1.002-1.030 [facility] Urine urobilinogen measureme ntOrdered By: Artur Gallardo on 06-19-2023 Urobilinogen Ql (U) Normal mg/dl Normal [facility] Whole blood hemoglobin A1c/t otal hemoglobin ratio (mass fraction)Ordered By: Viri Mcclelland on 06-19-2023 HbA1c (Bld) [Mass fraction] 13.0 % 3.8-5.6 [facility] Comment on above: Normal < 5.7 % Predi abetic 5.7 - 6.4 % Diabetic >or= 6.5 % Please note range changes. Glucose Glucometer (BldC) [M ass/Vol]on 02-04-2022 Glucose [Mass/Vol] 280 mg/dL 74-106 [facility] Work Phone: Comment on above: MANAGEMENT OF PATIEN T CARE PER NURSING PROTOCOL Absolute lymphocyte counton 02-03-2022 Lymphocytes Auto (Unsp spec) [#/Vol] 1.01 10*3/uL 0.83-4.51 [facility] Work Phone: Basophil percentageon 2021 Basophils/100 WBC (Bld) 0.5 % 0-1 [facility] Work Phone: Chloride [Moles/Vol] 98 mmol/L 98-107 [facility] Work Phone: Eosinophils/100 WBC (Bld) 0.3 % 0-5 [facility] Work Phone: Glucose [Mass/Vol] 140 mg/dL 74-106 [facility] Work Phone: Comment on above: Fasting Glucose resu lt greater than or equal to 126 mg/dL suggests DIABETES MELLITUS per A.D.A. criteria. Neutrophils (Bld) [#/Vol] 2.6 10*3/uL 2.0-7.7 [facility] Work Phone: Neutrophils/100 WBC (Bld) 66.0 % 47-70 [facility] Work Phone: Potassium [Moles/Vol] 3.7 mmol/L 3.5-5.1 [facility] Work Phone: Sodium [Moles/Vol] 133 mmol/L 136-145 [facility] Work Phone: WBC (Bld) [#/Vol] 4.0 10*3/uL 4.4-11.0 [facility] Work Phone: Blood erythrocytes count (nu mber/volume)on 02-03-2022 RBC (Bld) [#/Vol] 4.38 10*6/uL 4.2-5.4 [facility] Work Phone: Blood hemoglobin measurement (mass/volume)on 02-03-2022 Hemoglobin (Bld) [Mass/Vol] 13.3 g/dL 12.0-15.0 [facility] Work Phone: Blood lymphocytes/100 leukoc yteson 02-03-2022 Lymphocytes/100 WBC (Bld) 25.6 % 19-41 [facility] Work Phone: Blood monocytes/100 leukocyt eson 02-03-2022 Monocytes/100 WBC (Bld) 7.3 % 0-10 [facility] Work Phone: Blood platelet mean volumeon 02-03-2022 Platelet mean volume (Bld) [Entitic vol] 9.9 fL 6.2-12.0 [facility] Work Phone: Determination of erythrocyte mean corpuscular volume (MCV)on 02-03-2022 MCV (RBC) [Entitic vol] 86.8 fL 81-99 [facility] Work Phone: Hematocrit Auto (Bld) [Volum e fraction]on 02-03-2022 Hematocrit (Bld) [Volume fraction] 38.0 % 37-47 [facility] Work Phone: Laboratory - Chemistry and C hemistry - challengeon 02-03-2022 CO2 [Moles/Vol] 25.0 mmol/L 21.0-32.0 [facility] Work Phone: Urea nitrogen/Creatinine [Mass ratio] 10.7 mg/mg 10-20 [facility] Work Phone: Laboratory - Hematology and Cell countson 02-03-2022 Erythrocyte distribution width (RBC) [Entitic vol] 40.6 fL 35.1-43.9 [facility] Work Phone: Erythrocyte distribution width (RBC) [Ratio] 12.7 % 11.6-14.6 [facility] Work Phone: Immature granulocytes/100 WBC (Bld) 0.300 % 0.0-0.9 [facility] Work Phone: Comment on above: IG% - Immature Granu locytes (promyelocytes, myelocytes and metamyelocytes) > 1% indicates that a LEFT SHIFT is Present. MCH (RBC) [Entitic mass] 30.4 pg 27.0-32.0 [facility] Work Phone: Nucleated RBC/100 WBC (Bld) [Ratio] 0 % 0-5 [facility] Work Phone: MCHC Auto (RBC) [Mass/Vol]on 02-03-2022 MCHC (RBC) [Mass/Vol] 35.0 g/dL 32-36 [facility] Work Phone: No Panel Informationon 02-03 Estimated Creatinine Clearance Calc 43.39 ml/min [facility] Work Phone: Estimated GFR (MDRD) Amer 112 mL/min >60 [facility] Work Phone: Comment on above: GFR Calc Estimated GFR (MDRD) Non-Af Amer 93 mL/min >60 [facility] Work Phone: Comment on above: Non- GFR Calc Platelets bldon 02-03-2022 Platelets (Bld) [#/Vol] 214 10*3/uL 150-450 [facility] Work Phone: Serum or plasma calcium yumiko urement (mass/volume)on 02-03-2022 Calcium [Mass/Vol] 8.9 mg/dL 8.5-10.1 [facility] Work Phone: Serum or plasma creatinine m easurement (mass/volume)on 02-03-2022 Creatinine [Mass/Vol] 0.65 mg/dL 0.55-1.02 [facility] Work Phone: Comment on above: The validity of the calculated GFR & GFRAA in patients over 70 years has not been determined. Clinical correlation is essential. Serum or plasma urea nitroge n measurement (mass/volume)on 02-03-2022 Urea nitrogen [Mass/Vol] 7 mg/dL 7-18 [facility] Work Phone: Thin prep Papanicolaou smear with manual screeningon 02-03-2022 Thin prep Papanicolaou smear with manual screening 10 5-15 [facility] Work Phone: Basophil percentageon 2021 Bilirubin [Mass/Vol] 0.60 mg/dL 0.20-1.00 [facility] Work Phone: Comment on above: For patients on eltr ombopag therapy, use of Dimension Wilder TBIL is not recommended. Protein [Mass/Vol] 6.2 g/dL 6.4-8.2 [facility] Work Phone: Laboratory - Chemistry and C hemistry - challengeon 02-02-2022 ALP [Catalytic activity/Vol] 49 U/L 45-117 [facility] Work Phone: ALT [Catalytic activity/Vol] 18 U/L 13-56 [facility] Work Phone: Globulin (S) [Mass/Vol] 3.1 g/dL 2.2-4.2 [facility] Work Phone: No Panel Informationon 02-02 Troponin I High Sensitivity 4 pg/mL 3.0-54.0 [facility] Work Phone: Comment on above: Please Note: New Farnaz t Units and Gender Specific Reference Ranges. For more information see Policy Stat Procedure [facility] High Sensitivity Troponin (TNIH) and attachments. Serum or plasma albumin yumiko urement (mass/volume)on 02-02-2022 Albumin [Mass/Vol] 3.1 g/dL 3.2-5.0 [facility] Work Phone: Serum or plasma albumin/glob ulin mass ratioon 02-02-2022 Albumin/Globulin [Mass ratio] 1.0 {ratio} 0.9-2.4 [facility] Work Phone: Thin prep Papanicolaou smear with manual screeningon 02-02-2022 Thin prep Papanicolaou smear with manual screening 31 U/L 15-37 [facility] Work Phone: Comment on above: Moderate Hemolysis, Result may be falsely increased. Vital Signs Date Time Vital Sign Value Performing Clinician Facility 08-01-2024 13:59-0400 Body height 173 cm Christina Edmonds APRN.HIGH PRESSURE BOILER OPERATOR Work Phone: [facility] 08-01-2024 13:59-0400 Body mass index (BMI) [Ratio] 22.32 kg/m2 Christina Edmonds RESEARCH ASSISTANT.HIGH PRESSURE BOILER OPERATOR Work Phone: [facility] 08-01-2024 13:59-0400 Body weight 66.8 kg Christina Edmonds APRN.HIGH PRESSURE BOILER OPERATOR Work Phone: [facility] 08-01-2024 13:59-0400 Diastolic blood pressure 68 mm[Hg] Christina Edmonds RESEARCH ASSISTANT.HIGH PRESSURE BOILER OPERATOR Work Phone: [facility] 08-01-2024 13:59-0400 Heart rate 80 /min Christina Edmonds RESEARCH ASSISTANT.HIGH PRESSURE BOILER OPERATOR Work Phone: [facility] 08-01-2024 13:59-0400 SaO2% (BldA) [Mass fraction] 98 % Christina Edmonds RESEARCH ASSISTANT.HIGH PRESSURE BOILER OPERATOR Work Phone: [facility] 08-01-2024 13:59-0400 Systolic blood pressure 120 mm[Hg] Christina Edmonds RESEARCH ASSISTANT.HIGH PRESSURE BOILER OPERATOR Work Phone: [facility] 07-19-2024 17:29-0400 Body mass index (BMI) [Ratio] 22.93 kg/m2 Gemma Saeed APRN.HIGH PRESSURE BOILER OPERATOR Work Phone: [facility] 07-19-2024 17:29-0400 Body temperature 98.49 [degF] Gemma Saeed APRN.HIGH PRESSURE BOILER OPERATOR Work Phone: [facility] 07-19-2024 17:29-0400 Body weight 68.4 kg Gemma Saeed APRN.HIGH PRESSURE BOILER OPERATOR Work Phone: [facility] 07-19-2024 17:29-0400 Diastolic blood pressure 80 mm[Hg] Gemma Saeed RESEARCH ASSISTANT.HIGH PRESSURE BOILER OPERATOR Work Phone: [facility] 07-19-2024 17:29-0400 Heart rate 69 /min Gemma Saeed RESEARCH ASSISTANT.HIGH PRESSURE BOILER OPERATOR Work Phone: [facility] 07-19-2024 17:29-0400 Respiratory rate 18 /min Gemma Saeed RESEARCH ASSISTANT.HIGH PRESSURE BOILER OPERATOR Work Phone: [facility] 07-19-2024 17:29-0400 SaO2% (BldA) [Mass fraction] 97 % Gemma Saeed RESEARCH ASSISTANT.HIGH PRESSURE BOILER OPERATOR Work Phone: [facility] 07-19-2024 17:29-0400 Systolic blood pressure 122 mm[Hg] Gemma Saeed RESEARCH ASSISTANT.HIGH PRESSURE BOILER OPERATOR Work Phone: [facility] 04-26-2024 14:09-0500 Body mass index (BMI) [Ratio] 22.35 kg/m2 Jose Jenkins MD Work Phone: [facility] 04-26-2024 14:09-0500 Body weight 66.68 kg Jose Jenkins MD Work Phone: [facility] 04-26-2024 14:09-0500 Diastolic blood pressure 80 mm[Hg] Jose Jenkins MD Work Phone: [facility] 04-26-2024 14:09-0500 Heart rate 111 /min Jose Jenkins MD Work Phone: [facility] 04-26-2024 14:09-0500 Respiratory rate 16 /min Jose Jenkins MD Work Phone: [facility] 04-26-2024 14:09-0500 Systolic blood pressure 130 mm[Hg] Jose Jenkins MD Work Phone: [facility] 03-14-2024 13:03-0500 Body mass index (BMI) [Ratio] 23.26 kg/m2 Christina Edmonds RESEARCH ASSISTANT.HIGH PRESSURE BOILER OPERATOR Work Phone: [facility] 03-14-2024 13:03-0500 Body weight 69.4 kg Christina Grey RESEARCH ASSISTANT.HIGH PRESSURE BOILER OPERATOR Work Phone: [facility] 03-14-2024 13:03-0500 Diastolic blood pressure 72 mm[Hg] Christina Grey RESEARCH ASSISTANT.HIGH PRESSURE BOILER OPERATOR Work Phone: [facility] 03-14-2024 13:03-0500 Heart rate 76 /min Christina Grey RESEARCH ASSISTANT.HIGH PRESSURE BOILER OPERATOR Work Phone: [facility] Comment on above: Apical of 80 03-14-2024 13:03-0500 Systolic blood pressure 132 mm[Hg] Christina Grey RESEARCH ASSISTANT.HIGH PRESSURE BOILER OPERATOR Work Phone: [facility] 11-12-2023 13:20-0400 Body mass index (BMI) [Ratio] 22.66 kg/m2 Christina Grey RESEARCH ASSISTANT.HIGH PRESSURE BOILER OPERATOR Work Phone: [facility] 11-12-2023 13:20-0400 Body weight 67.59 kg Christina Grey RESEARCH ASSISTANT.HIGH PRESSURE BOILER OPERATOR Work Phone: [facility] 11-12-2023 13:20-0400 Diastolic blood pressure 60 mm[Hg] Christina Grey RESEARCH ASSISTANT.HIGH PRESSURE BOILER OPERATOR Work Phone: [facility] 11-12-2023 13:20-0400 Heart rate 86 /min Christina Grey RESEARCH ASSISTANT.HIGH PRESSURE BOILER OPERATOR Work Phone: [facility] 11-12-2023 13:20-0400 SaO2% (BldA) [Mass fraction] 97 % Christina Grey RESEARCH ASSISTANT.HIGH PRESSURE BOILER OPERATOR Work Phone: [facility] 11-12-2023 13:20-0400 Systolic blood pressure 102 mm[Hg] Christina Grey RESEARCH ASSISTANT.HIGH PRESSURE BOILER OPERATOR Work Phone: [facility] 08-13-2023 10:47-0400 Body temperature 97 [degF] Christina Grey RESEARCH ASSISTANT.HIGH PRESSURE BOILER OPERATOR Work Phone: [facility] 08-13-2023 10:47-0400 Body weight 68.95 kg Christina Grey RESEARCH ASSISTANT.HIGH PRESSURE BOILER OPERATOR Work Phone: [facility] 08-13-2023 10:47-0400 Diastolic blood pressure 68 mm[Hg] Christina Grey RESEARCH ASSISTANT.HIGH PRESSURE BOILER OPERATOR Work Phone: [facility] 08-13-2023 10:47-0400 Heart rate 84 /min Christina Grey RESEARCH ASSISTANT.HIGH PRESSURE BOILER OPERATOR Work Phone: [facility] 08-13-2023 10:47-0400 Respiratory rate 16 /min Christina Grey RESEARCH ASSISTANT.HIGH PRESSURE BOILER OPERATOR Work Phone: [facility] 08-13-2023 10:47-0400 Systolic blood pressure 126 mm[Hg] Christina Grey RESEARCH ASSISTANT.HIGH PRESSURE BOILER OPERATOR Work Phone: [facility] 07-20-2023 12:55-0400 Diastolic blood pressure 64 mm[Hg] Christina Grey RESEARCH ASSISTANT.HIGH PRESSURE BOILER OPERATOR Work Phone: [facility] 07-20-2023 12:55-0400 Heart rate 80 /min Christina Grey RESEARCH ASSISTANT.HIGH PRESSURE BOILER OPERATOR Work Phone: [facility] 07-20-2023 12:55-0400 Respiratory rate 16 /min Christina Grey RESEARCH ASSISTANT.HIGH PRESSURE BOILER OPERATOR Work Phone: [facility] 07-20-2023 12:55-0400 Systolic blood pressure 98 mm[Hg] Christina Grey RESEARCH ASSISTANT.HIGH PRESSURE BOILER OPERATOR Work Phone: [facility] 07-17-2023 12:12-0500 Body temperature 96.8 [degF] Rena Demetrius RESEARCH ASSISTANT.HIGH PRESSURE BOILER OPERATOR Work Phone: [facility] 07-17-2023 12:12-0500 Body weight 69.2 kg Rena Demetrius RESEARCH ASSISTANT.HIGH PRESSURE BOILER OPERATOR Work Phone: [facility] 07-17-2023 12:12-0500 Diastolic blood pressure 62 mm[Hg] Rena Demetrius RESEARCH ASSISTANT.HIGH PRESSURE BOILER OPERATOR Work Phone: [facility] 07-17-2023 12:12-0500 Heart rate 96 /min Rena Demetrius RESEARCH ASSISTANT.HIGH PRESSURE BOILER OPERATOR Work Phone: [facility] 07-17-2023 12:12-0500 Respiratory rate 16 /min Rena Demetrius RESEARCH ASSISTANT.HIGH PRESSURE BOILER OPERATOR Work Phone: [facility] 07-17-2023 12:12-0500 SaO2% (BldA) [Mass fraction] 95 % Rena Dorank RESEARCH ASSISTANT.HIGH PRESSURE BOILER OPERATOR Work Phone: [facility] 07-17-2023 12:12-0500 Systolic blood pressure 100 mm[Hg] Rena Dorank RESEARCH ASSISTANT.HIGH PRESSURE BOILER OPERATOR Work Phone: [facility] 07-12-2023 14:51-0500 Body weight 69.85 kg Christina Grey RESEARCH ASSISTANT.HIGH PRESSURE BOILER OPERATOR Work Phone: [facility] 07-12-2023 14:51-0500 Diastolic blood pressure 72 mm[Hg] Christina Grey RESEARCH ASSISTANT.HIGH PRESSURE BOILER OPERATOR Work Phone: [facility] 07-12-2023 14:51-0500 Heart rate 84 /min Christina Grey RESEARCH ASSISTANT.HIGH PRESSURE BOILER OPERATOR Work Phone: [facility] 07-12-2023 14:51-0500 Respiratory rate 16 /min Christina Grey RESEARCH ASSISTANT.HIGH PRESSURE BOILER OPERATOR Work Phone: [facility] 07-12-2023 14:51-0500 Systolic blood pressure 120 mm[Hg] Christina Grey RESEARCH ASSISTANT.HIGH PRESSURE BOILER OPERATOR Work Phone: [facility] 06-22-2023 09:07-0500 Body temperature 97.5 [degF] Dr. Artur Gallardo Work Phone: [facility] 06-22-2023 09:07-0500 Diastolic blood pressure 87 mm[Hg] Dr. Artur Gallardo Work Phone: [facility] 06-22-2023 09:07-0500 Heart rate 109 /min Dr. Artur Gallardo Work Phone: [facility] 06-22-2023 09:07-0500 Respiratory rate 17 /min Dr. Artur Gallardo Work Phone: [facility] 06-22-2023 09:07-0500 SaO2% (BldA) [Mass fraction] 98 % Dr. Artur Gallardo Work Phone: [facility] 06-22-2023 09:07-0500 Systolic blood pressure 137 mm[Hg] Dr. Artur Gallardo Work Phone: [facility] 06-20-2023 10:12-0500 Body height 172.[address] Artur Gallardo Work Phone: [facility] 06-20-2023 10:12-0500 Body weight 68.[address] Artur Gallardo Work Phone: [facility] 06-19-2023 20:27-0500 Body mass index (BMI) [Ratio] 22.8 kg/m2 Dr. Artur Gallardo Work Phone: [facility] 06-19-2023 12:59-0500 Body temperature 97.11 [degF] Devin Carrasquillo MD Work Phone: [facility] 06-19-2023 12:59-0500 Body weight 69.58 kg Devin Carrasquillo MD Work Phone: [facility] 06-19-2023 12:59-0500 Diastolic blood pressure 88 mm[Hg] Devin Carrasquillo MD Work Phone: [facility] 06-19-2023 12:59-0500 Heart rate 90 /min Devin Carrasquillo MD Work Phone: [facility] 06-19-2023 12:59-0500 Respiratory rate 21 /min Devin Carrasquillo MD Work Phone: [facility] 06-19-2023 12:59-0500 SaO2% (BldA) [Mass fraction] 99 % Devin Carrasquillo MD Work Phone: [facility] 06-19-2023 12:59-0500 Systolic blood pressure 130 mm[Hg] Devin Carrasquillo MD Work Phone: [facility] 02-27-2022 08:17-0400 Body weight 63.5 kg Evita Jimenez APRN.CNS Work Phone: [facility] 02-27-2022 08:17-0400 Diastolic blood pressure 80 mm[Hg] Evita Jimenez RESEARCH ASSISTANT.BOX CUTTER Work Phone: [facility] 02-27-2022 08:17-0400 Heart rate 83 /min Evita Jimenez RESEARCH ASSISTANT.BOX CUTTER Work Phone: [facility] 02-27-2022 08:17-0400 Respiratory rate 16 /min Evita Jimenez RESEARCH ASSISTANT.BOX CUTTER Work Phone: [facility] 02-27-2022 08:17-0400 SaO2% (BldA) [Mass fraction] 98 % Evita Jimenez RESEARCH ASSISTANT.BOX CUTTER Work Phone: [facility] 02-27-2022 08:17-0400 Systolic blood pressure 122 mm[Hg] Evita Jimenez RESEARCH ASSISTANT.BOX CUTTER Work Phone: [facility] 02-04-2022 11:01-0400 Body temperature 97.9 [degF] Dr. Jose oCrbett Work Phone: [facility] Work Phone: 02-04-2022 11:01-0400 Diastolic blood pressure 62 mm[Hg] Dr. Jose Corbett Work Phone: [facility] Work Phone: 02-04-2022 11:01-0400 Heart rate 70 /min Dr. Jose Corbett Work Phone: [facility] Work Phone: 02-04-2022 11:01-0400 Respiratory rate 12 /min Dr. Jose Corbett Work Phone: [facility] Work Phone: 02-04-2022 11:01-0400 SaO2% (BldA) [Mass fraction] 98 % Dr. Jose Corbett Work Phone: [facility] Work Phone: 02-04-2022 11:01-0400 Systolic blood pressure 106 mm[Hg] Dr. Jose Corbett Work Phone: [facility] Work Phone: 02-03-2022 00:15-0400 Body height 175.[address] Jose Corbett Work Phone: [facility] Work Phone: 02-03-2022 00:15-0400 Body mass index (BMI) [Ratio] 20.2 kg/m2 Dr. Jose Corbett Work Phone: [facility] Work Phone: 02-03-2022 00:15-0400 Body weight 62.[address] Jose Corbett Work Phone: [facility] Work Phone: 01-28-2022 16:11-0400 Body temperature 99.39 [degF] Jackie Praisler-Wood RESEARCH ASSISTANT.HIGH PRESSURE BOILER OPERATOR Work Phone: [facility] 01-28-2022 16:11-0400 Body weight 65.05 kg Jackie Praisler-Wood RESEARCH ASSISTANT.HIGH PRESSURE BOILER OPERATOR Work Phone: [facility] 01-28-2022 16:11-0400 Diastolic blood pressure 82 mm[Hg] Jackie Praisler-Wood RESEARCH ASSISTANT.HIGH PRESSURE BOILER OPERATOR Work Phone: [facility] 01-28-2022 16:11-0400 Heart rate 86 /min Jackie Praisler-Wood RESEARCH ASSISTANT.HIGH PRESSURE BOILER OPERATOR Work Phone: [facility] 01-28-2022 16:11-0400 Respiratory rate 18 /min Jackie Praisler-Wood RESEARCH ASSISTANT.HIGH PRESSURE BOILER OPERATOR Work Phone: [facility] 01-28-2022 16:11-0400 SaO2% (BldA) [Mass fraction] 95 % Jackie Praisler-Wood RESEARCH ASSISTANT.HIGH PRESSURE BOILER OPERATOR Work Phone: [facility] 01-28-2022 16:11-0400 Systolic blood pressure 120 mm[Hg] Jackie Praisler-Wood RESEARCH ASSISTANT.HIGH PRESSURE BOILER OPERATOR Work Phone: [facility] 01-09-2022 10:08-0400 Body temperature 97.81 [degF] Rena Demetrius RESEARCH ASSISTANT.HIGH PRESSURE BOILER OPERATOR Work Phone: [facility] 01-09-2022 10:08-0400 Body weight 66.41 kg Rena Demetrius RESEARCH ASSISTANT.HIGH PRESSURE BOILER OPERATOR Work Phone: [facility] 01-09-2022 10:08-0400 Diastolic blood pressure 78 mm[Hg] Rena Demetrius RESEARCH ASSISTANT.HIGH PRESSURE BOILER OPERATOR Work Phone: [facility] 01-09-2022 10:08-0400 Heart rate 110 /min Rena Demetrius RESEARCH ASSISTANT.HIGH PRESSURE BOILER OPERATOR Work Phone: [facility] 01-09-2022 10:08-0400 Respiratory rate 16 /min Rena Demetrius RESEARCH ASSISTANT.HIGH PRESSURE BOILER OPERATOR Work Phone: [facility] 01-09-2022 10:08-0400 SaO2% (BldA) [Mass fraction] 98 % Rena Demetrius RESEARCH ASSISTANT.HIGH PRESSURE BOILER OPERATOR Work Phone: [facility] 01-09-2022 10:08-0400 Systolic blood pressure 132 mm[Hg] Rena Demetrius RESEARCH ASSISTANT.HIGH PRESSURE BOILER OPERATOR Work Phone: [facility] 11-27-2021 09:06-0400 Body weight 66.22 kg Evita Jimenez RESEARCH ASSISTANT.BOX CUTTER Work Phone: [facility] 11-27-2021 09:06-0400 Diastolic blood pressure 80 mm[Hg] Evita Jimenez RESEARCH ASSISTANT.BOX CUTTER Work Phone: [facility] 11-27-2021 09:06-0400 Heart rate 78 /min Evita Jimenez RESEARCH ASSISTANT.BOX CUTTER Work Phone: [facility] 11-27-2021 09:06-0400 Respiratory rate 16 /min Evita Jimenez RESEARCH ASSISTANT.BOX CUTTER Work Phone: [facility] 11-27-2021 09:06-0400 SaO2% (BldA) [Mass fraction] 98 % Evita Jimenez RESEARCH ASSISTANT.BOX CUTTER Work Phone: [facility] 11-27-2021 09:06-0400 Systolic blood pressure 138 mm[Hg] Evita Jimenez RESEARCH ASSISTANT.BOX CUTTER Work Phone: [facility] Encounters Encounter Date Encounter Type Care Provider Facility Start: 03-13-2025 ambulatory Milady Deutsch KATE Facili ty:[facility] Start: 12-12-2024 ambulatory Milady Deutsch KATE Facili ty:[facility] Start: 11-13-2024 End: 11-13-2024 ambulatory Jackie Damon MA [facility] Start: 11-13-2024 End: 11-13-2024 Patient encounter procedure Jackie Damon MA [facility] Comment on above: Population Health [facility] Start: 10-10-2024 End: 10-10-2024 ambulatory Jackie Damon MA [facility] Start: 10-10-2024 End: 10-10-2024 Patient encounter procedure Jackie Damon MA [facility] Comment on above: Population Health Na [facility]igation Outreach [facility] Start: 10-09-2024 ambulatory Christina Grey FORGER HELPER Facilit y:[facility] Start: 10-06-2024 ambulatory Christina Grey FORGER HELPER Facilit y:[facility] Start: 08-28-2024 End: 08-28-2024 Refill Christina Grey RESEARCH ASSISTANT.HIGH PRESSURE BOILER OPERATOR Work Phone: [facility] Comment on above: Refill Request Start: 08-17-2024 End: 08-17-2024 Telephone encounter Christina Grey RESEARCH ASSISTANT.HIGH PRESSURE BOILER OPERATOR Work Phone: [facility] Comment on above: Patient Question Start: 08-07-2024 End: 08-07-2024 Telephone encounter Christina Grey RESEARCH ASSISTANT.HIGH PRESSURE BOILER OPERATOR Work Phone: [address] [place] [address] Comment on above: Patient Update Start: 08-02-2024 End: 08-04-2024 Follow-up encounter Christina Grey RESEARCH ASSISTANT.HIGH PRESSURE BOILER OPERATOR Work Phone: [facility] Start: 08-01-2024 End: 08-01-2024 ambulatory CHRISTINA GREY Facility:[facility] Start: 08-01-2024 End: 08-01-2024 Patient encounter procedure Christina Edmonds RESEARCH ASSISTANT.HIGH PRESSURE BOILER OPERATOR Work Phone: [facility] Comment on above: Medicare annual well ness [...] 07-28-2024 End: 08-01-2024 Telephone encounter Christina Edmonds RESEARCH ASSISTANT.HIGH PRESSURE BOILER OPERATOR Work Phone: [facility] Comment on above: Patient Update; proc ess began to get her admitted [facility] Start: 07-24-2024 End: 07-24-2024 Refill Christina Edmonds RESEARCH ASSISTANT.HIGH PRESSURE BOILER OPERATOR Work Phone: [address] [place] [address] Comment on above: Erroneous encounter- disregard Medication Problem Start: 07-19-2024 End: 07-19-2024 ambulatory CHRISTINA GREY Facility:[facility] Start: 07-19-2024 End: 07-19-2024 Patient encounter procedure Gemma Christophe RESEARCH ASSISTANT.HIGH PRESSURE BOILER OPERATOR Work Phone: [facility] Comment on above: Skin tear of lower l eg without complication, initial encounter (Primary Dx) Start: 05-23-2024 End: 07-18-2024 Telephone encounter Jose Jenkins MD Work Phone: [facility] Start: 05-17-2024 End: 05-17-2024 ambulatory CHRISTINA GREY Facility:[facility] Start: 05-17-2024 End: 05-17-2024 Nursing evaluation of patient and report Mi Nurse Work Phone: [facility] Comment on above: Vitamin B 12 deficie ncy (Primary Dx) Start: 05-15-2024 End: 05-15-2024 Refill Christina Grey RESEARCH ASSISTANT.HIGH PRESSURE BOILER OPERATOR Work Phone: [facility] Comment on above: Refill Request Start: 05-08-2024 End: 05-08-2024 ambulatory CHRISTINA GREY Facility:[facility] Start: 05-08-2024 End: 05-08-2024 Nursing evaluation of patient and report Mi Nurse Work Phone: [facility] Comment on above: Vitamin B 12 deficie ncy (Primary Dx) Start: 05-01-2024 End: 05-01-2024 Nursing evaluation of patient and report Mi Nurse Work Phone: [facility] [place] Comment on above: Vitamin B 12 deficie ncy (Primary Dx) Start: 05-01-2024 End: 05-01-2024 ambulatory CHRISTINA EDMONDS Facility:[facility] Start: 04-27-2024 End: 04-28-2024 Telephone encounter Jose Jenkins MD Work Phone: [facility]iatrics Comment on above: Results Orders Start: 04-26-2024 End: 04-26-2024 [facility] Facility:[facility] Start: 04-26-2024 End: 04-26-2024 Assmt & care planning pt w/cognitive impairment Jose Jenkins MD Work Phone: [facility] Comment on above: 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, unspecified dementia type (HCC) Start: 04-26-2024 End: 04-26-2024 [facility] Facility:[facility] Start: 04-25-2024 End: 04-25-2024 ambulatory DAGMAR ORTIZ Facility:[facility] Start: 04-25-2024 End: 04-25-2024 Patient encounter procedure Dagmar Otriz Work Phone: Podiatry Comment on above: Onychomycosis (Prima ry Dx); Pain in toe of left foot; Pain in toe of right foot Start: 03-14-2024 End: 03-14-2024 ambulatory CHRISTINA EDMONDS Facility:[facility] Start: 03-14-2024 End: 03-14-2024 Patient encounter procedure Christina Edmonds RESEARCH ASSISTANT.HIGH PRESSURE BOILER OPERATOR Work Phone: [facility] Comment on above: 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, unspecified dementia type (HCC) (Primary Dx); Driving safety issue; Type 2 diabetes mellitus without complication, without long-term current use of insulin (HCC) Start: 03-10-2024 End: 03-10-2024 Refill Christina Grey RESEARCH ASSISTANT.HIGH PRESSURE BOILER OPERATOR Work Phone: [facility] Comment on above: Refill Request Start: 02-10-2024 End: 02-11-2024 Refill Christina Grey RESEARCH ASSISTANT.HIGH PRESSURE BOILER OPERATOR Work Phone: [facility] [place] Comment on above: Refill Request (Plea se read Rx notes) Medication Problem Start: 02-07-2024 End: 02-08-2024 Refill Christina Grey RESEARCH ASSISTANT.HIGH PRESSURE BOILER OPERATOR Work Phone: [facility] Comment on above: Refill Request Start: 01-25-2024 End: 01-25-2024 ambulatory DAGMAR ORTIZ Facility:[facility] Start: 01-25-2024 End: 01-25-2024 Patient encounter procedure Dagmar Ariasstephen Work Phone: Podiatry Comment on above: Onychomycosis (Prima ry Dx); Pain in toe of left foot; Pain in toe of right foot; Type 2 diabetes mellitus without complication, without long-term current use of insulin (HCC) Start: 12-09-2023 Refill Christina Grey RESEARCH ASSISTANT.HIGH PRESSURE BOILER OPERATOR Work Phone: [facility] [place] Comment on above: Refill Request Start: 11-16-2023 Telephone encounter Christina Cleav er RESEARCH ASSISTANT.HIGH PRESSURE BOILER OPERATOR Work Phone: [facility] Start: 11-12-2023 End: 11-12-2023 Patient encounter procedure Christina Grey RESEARCH ASSISTANT.HIGH PRESSURE BOILER OPERATOR Work Phone: [facility] [place] Comment on above: 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, unspecified dementia type (HCC) (Primary Dx); Type 2 diabetes mellitus without complication, without long-term current use of insulin (HCC); Acquired hypothyroidism; Encounter for therapeutic drug monitoring Start: 11-08-2023 Refill Christina Grey RESEARCH ASSISTANT.HIGH PRESSURE BOILER OPERATOR Work Phone: [facility] Comment on above: Refill Request Start: 11-04-2023 Refill Christina Grey RESEARCH ASSISTANT.HIGH PRESSURE BOILER OPERATOR Work Phone: [facility] [place] Comment on above: Refill Request Start: 10-21-2023 End: 10-21-2023 Patient encounter procedure Dagmar Ortiz Work Phone: Podiatry Comment on above: Onychomycosis (Prima ry Dx); Pain in toe of left foot; Pain in toe of right foot; Type 2 diabetes mellitus without complication, without long-term current use of insulin (HCC) Refill Request Start: 09-24-2023 Telephone encounter Christina barger APRN.HIGH PRESSURE BOILER OPERATOR Work Phone: [facility] [place] Comment on above: Medication concern Start: 08-13-2023 End: 08-13-2023 Patient encounter procedure Christina Edmonds APRN.HIGH PRESSURE BOILER OPERATOR Work Phone: [facility] [place] Comment on above: Paronychia of finger of left hand (Primary Dx); Moderate dementia with other behavioral disturbance, unspecified dementia type (HCC); Type 2 diabetes mellitus without complication, without long-term current use of insulin (HCC) Start: 08-06-2023 Refill Christina Edmonds APRN.HIGH PRESSURE BOILER OPERATOR Work Phone: [facility] Comment on above: Refill Request Start: 07-27-2023 End: 07-27-2023 Patient encounter procedure Christina Edmonds RESEARCH ASSISTANT.HIGH PRESSURE BOILER OPERATOR Work Phone: [facility] [place] Comment on above: Paronychia of finger of left hand (Primary Dx) Start: 07-21-2023 Telephone encounter Pilar garcia APRN.HIGH PRESSURE BOILER OPERATOR Work Phone: [facility] Start: 07-20-2023 End: 07-20-2023 Patient encounter procedure Dagmar Ortiz Work Phone: Podiatry Comment on above: Onychomycosis (Prima ry Dx); Type 2 diabetes mellitus without complication, without long-term current use of insulin (HCC); Pain in toe of left foot; Pain in toe of right foot; Venous insufficiency; Xerosis cutis Paronychia of finger of left hand (Primary Dx) Start: 07-17-2023 End: 07-17-2023 Patient encounter procedure Rena Romo APRN.HIGH PRESSURE BOILER OPERATOR Work Phone: [facility] Comment on above: Paronychia of finger of left hand (Primary Dx); Infection, skin Start: 07-12-2023 End: 07-12-2023 Patient encounter procedure Christina Edmonds APRN.HIGH PRESSURE BOILER OPERATOR Work Phone: [facility] [place] Comment on above: 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 Manzano Work Phone: [facility] Work Phone: Start: 06-20-2023 Non-patient / Non-visit Dr. Manzano Work Phone: [facility] Work Phone: Start: 06-19-2023 End: 06-22-2023 Evaluation and management of inpatient Dr. Artur Gallardo Work Phone: [facility] Work Phone: Start: 06-19-2023 End: 06-22-[address] Artur Gallardo Work Phone: [facility] Work Phone: Start: 06-19-2023 End: 06-19-2023 Patient encounter procedure Devin Carrasquillo MD Work Phone: [facility] Comment on above: Neck pain (Primary D x) Start: 02-27-2022 End: 02-27-2022 Patient encounter procedure Evita Jimenez APRN.BOX CUTTER Work Phone: [facility] [place] Comment on above: COVID-19 virus infec tion (Primary Dx); Screening for diabetic retinopathy; Encounter for immunization; Type 2 diabetes mellitus without complication, without long-term current use of insulin (HCC); Hypercholesteremia; Acquired hypothyroidism; Syncope, unspecified syncope type; Diarrhea, unspecified type; Memory problem Start: 02-02-2022 Non-patient / Non-visit Dr. Rosa Corbett Work Phone: [facility] Start: 02-02-2022 End: 02-04-2022 Evaluation and management of inpatient Dr. Jose Corbett Work Phone: [facility] Start: 02-02-2022 End: 02-04-[address] Jose Corbett Work Phone: [facility] Work Phone: Start: 01-29-2022 Telephone encounter Devin Iglesias MD Work Phone: [facility] Comment on above: Results (COVID+) Start: 01-29-2022 End: 01-29-2022 ambulatory Evita Jimenez RESEARCH ASSISTANT.BOX CUTTER Work Phone: [facility] [place] Comment on above: COVID-19 virus infec tion (Primary Dx) Start: 01-29-2022 End: 01-29-2022 Telemedicine consultation with patient Evita Jimenez APRN.BOX CUTTER Work Phone: [facility] Start: 01-28-2022 End: 01-28-2022 Patient encounter procedure Jackie Nunes RESEARCH ASSISTANT.HIGH PRESSURE BOILER OPERATOR Work Phone: [facility] Comment on above: Close exposure to [place] VID-19 virus (Primary Dx) Start: 01-09-2022 End: 01-09-2022 Patient encounter procedure Rena Romo RESEARCH ASSISTANT.HIGH PRESSURE BOILER OPERATOR Work Phone: [facility] Comment on above: Rash (Primary Dx); Skin lesion Start: 12-04-2021 Telephone encounter Evita charles RESEARCH ASSISTANT.BOX CUTTER Work Phone: [facility] [place] Comment on above: Results, Lab Start: 12-02-2021 Telephone encounter Evita charles RESEARCH ASSISTANT.BOX CUTTER Work Phone: [facility] [place] Comment on above: Results, Lab Start: 11-27-2021 End: 11-27-2021 Patient encounter procedure Evita Jimenez BROOKLYNN.BOX CUTTER Work Phone: [facility] [place] Comment on above: Acquired hypothyroid ism (Primary Dx); Need for shingles vaccine; Screening for diabetic retinopathy; Screening for colon cancer; Encounter for immunization; Hypercholesteremia; Type 2 diabetes mellitus without complication, without long-term current use of insulin (HCC); Memory problem; Fungal nail infection Start: 11-03-2021 ambulatory Neema Mills MA [facility] [place] Comment on above: Population Health Na vigation [...] DTaP,Tdap,Td Vaccine (3 - Td or Tdap) [facility] Start: 08-01-2025 Hepatitis B surface antibody level LDL Cholesterol [facility] Start: 08-01-2025 Medicare Annual Wellness Visit Medicare Annual Wellness Visit [facility] Start: 01-08-2025 Influenza vaccination Influenza Vaccine (#1) [facility] Start: 11-01-2024 Hemoglobin A1c measurement HbA1C [facility] Start: 09-11-2024 End: 09-11-2024 Patient encounter procedure [facility] [place] Comment on above: 6 month follow up Start: 08-01-2024 End: 10-31-2024 25-hydroxyvitamin D3 [Mass/volume] in Serum or Plasma [facility] Comment on above: Expected: 08/01/2024, Expires: Start: 08-01-2024 End: 10-31-2024 Cobalamin (Vitamin B12) [Mass/volume] in Serum or Plasma [facility] Comment on above: Expected: 08/01/2024, Expires: Start: 08-01-2024 End: 10-31-2024 Comprehensive metabolic 2000 panel - Serum or Plasma [facility] Work Phone: Comment on above: Expected: 08/01/2024, Expires: Start: 08-01-2024 End: 10-31-2024 Hemoglobin A1c in Blood [facility] Comment on above: Expected: 08/01/2024, Expires: Start: 08-01-2024 End: 10-31-2024 LIPID PANEL, NONFASTING [facility] Comment on above: Expected: 08/01/2024, Expires: Start: 08-01-2024 End: 08-01-2024 Patient encounter procedure 08/01/2024 2:00 PM EDT Office Visit [facility] [place] [address], [place] [id number] Christina Edmonds APRN.HIGH PRESSURE BOILER OPERATOR [address] [place], [place] [address] MEDICARE WELLNESS [facility] [place] Comment on above: MEDICARE WELLNESS Start: 07-25-2024 End: 07-25-2024 Patient encounter procedure 07/25/2024 1:45 PM EDT Office Visit Podiatry [address] [place] [address] Dagmar Ortiz [address] [address] 3 month follow up mail care Podiatry Comment on above: 3 month follow up mail care Start: 07-19-2024 Diabetic foot examination Diabetic Foot Exam [facility] Start: 07-11-2024 Hepatitis B screening Urine Albumin:Creatinine Ratio [facility] Start: 07-11-2024 Hepatitis B surface antibody level LDL Cholesterol [facility] Start: 05-24-2024 End: 05-24-2024 Nursing evaluation of patient and report 05/24/2024 2:15 PM EST Nurse Visit [facility] [place] [address] [place] [address] Nurse, [place] [address] [place] [address] B12 [facility] [place] Comment on above: B12 Start: 05-22-2024 End: 05-22-2024 Nursing evaluation of patient and report 05/22/2024 1:15 PM EST Nurse Visit [facility] [place] [address] [place] [address] Nurse, Mi [address] [place] [address] B12 inj [facility] [place] Comment on above: B12 inj Start: 05-17-2024 End: 05-17-2024 Nursing evaluation of patient and report 05/17/2024 2:15 PM EST Nurse Visit [facility] [place] [address] [place] [address] Nurse, Mi [address] [place] [address] B12 [facility] [place] Comment on above: B12 Start: 05-15-2024 End: 05-15-2024 Nursing evaluation of patient and report 05/15/2024 2:00 PM EST Nurse Visit [facility] [place] [address] [place] [address] Nurse, Mi [address] [place] [address] B12 inj [facility] [place] Comment on above: B12 inj Start: 05-10-2024 Advance Directive Discussion Advance Directive Discussion [facility] Start: 05-08-2024 End: 05-08-2024 Nursing evaluation of patient and report 05/08/2024 1:15 PM EST Nurse Visit [facility] [place] [address] [place] [address] Nurse, Mi [address] [place] [address] B12 inj [facility] [place] Comment on above: B12 inj Start: 05-01-2024 End: 05-01-2024 Nursing evaluation of patient and report 05/01/2024 1:30 PM EST Nurse Visit [facility] [place] [address] [facility] [place] [id number] Nurse, Sol [address] [facility] [place] [phone] B12 inj [facility] [place] Comment on above: B12 inj Start: 04-26-2024 End: 04-26-2024 Patient encounter procedure 04/26/2024 2:30 PM EST Office Visit Geriatrics [address] [facility] [place] [place], [place] [phone] Jose Jenkins MD [address] [facility] [place], [place] [id number] Moderate dementia with other behavioral disturbance, unspecified dementia type (... [facility]iatric[facility] Comment on above: Moderate dementia with other behavioral disturbance, unspecified dementia type (... Start: 04-26-2024 End: 07-26-2024 Cobalamin (Vitamin B12) [Mass/volume] in Serum or Plasma [facility] Work Phone: Comment on above: Expected: 04/26/2024, Expires: Start: 04-25-2024 End: 04-25-2024 Patient encounter procedure 04/25/2024 1:00 PM EST Office Visit Podiatry [address] [facility], [place] [phone] Dagmar Ortiz [address] [facility], [place] [phone] 3 month follow up Podiatry Comment on above: 3 month follow up Start: 03-28-2024 Covid-19 Vaccine ( season) Covid-19 Vaccine () [facility] Start: 03-14-2024 End: 03-14-2024 Patient encounter procedure 03/14/2024 1:20 PM EST Office Visit [facility] [place] [address] [facility], [place] [phone] Christina Edmonds APRN.HIGH PRESSURE BOILER OPERATOR [address] [facility], [place] [phone] 4 month follow up [facility] [place] Comment on above: 4 month follow up Start: 02-12-2024 Hemoglobin A1c measurement HbA1C [facility] Start: 01-25-2024 End: 01-25-2024 Patient encounter procedure 01/25/2024 11:00 AM EDT Office Visit Podiatry [address] [place], [place] [address] Dagmar Ortiz [address] [place] [address] 3 month follow up Podiatry Comment on above: 3 month follow up Start: 01-21-2024 Covid-19 Vaccine () Covid-19 Vaccine () [facility] Start: 01-09-2024 Influenza vaccination Influenza Vaccine (#1) [facility] Start: 11-12-2023 End: 02-11-2024 CBC W Auto Differential panel - Blood [facility] Work Phone: Comment on above: Expected: 11/12/2023, Expires: Start: 11-12-2023 End: 02-11-2024 Comprehensive metabolic 2000 panel - Serum or Plasma [facility] Comment on above: Expected: 11/12/2023, Expires: Start: 11-12-2023 End: 02-11-2024 Hemoglobin A1c in Blood [facility] Comment on above: Expected: 11/12/2023, Expires: Start: 11-12-2023 End: 02-11-2024 Thyrotropin [Units/volume] in Serum or Plasma [facility] Comment on above: Expected: 11/12/2023, Expires: Start: 11-12-2023 End: 02-11-2024 Thyroxine (T4) free [Mass/volume] in Serum or Plasma [facility] Comment on above: Expected: 11/12/2023, Expires: Start: 11-12-2023 End: 02-11-2024 Triiodothyronine (T3) Free [Mass/volume] in Serum or Plasma [facility] Comment on above: Expected: 11/12/2023, Expires: Start: 11-12-2023 End: 11-12-2023 Patient encounter procedure 11/12/2023 1:40 PM EDT Office Visit [facility] [place] [address] [place] [address] Christina Edmonds APRN.HIGH PRESSURE BOILER OPERATOR [address] [place], [place] [phone] 3 Month follow up [facility] [place] Comment on above: 3 Month follow up Start: 10-21-2023 End: 10-21-2023 Patient encounter procedure 10/21/2023 11:00 AM EDT Office Visit Podiatry [address] [place], [place] [phone] Dagmar Ortiz [address] [place] [address] 3 month follow up Podiatry Comment on above: 3 month follow up Start: 10-12-2023 Hemoglobin A1c measurement HbA1C [facility] Start: 08-15-2023 Covid-19 Vaccine ( season) Covid-19 Vaccine () [facility] Start: 07-17-2023 End: 10-16-2023 Bacteria identified in Wound by Culture ABSCESS AND WOUND CULTURE WITH GRAM STAIN Microbiology Routine Paronychia of finger of left hand Expected: 07/17/2023, Expires: 10/16/2023 [facility] Work Phone: Comment on above: Expected: 07/17/2023, Expires: Start: 07-12-2023 End: 10-11-2023 ALBUMIN/CREAT RATIO RND UR [facility] Work Phone: Comment on above: Expected: 07/12/2023, Expires: 4 Start: 07-12-2023 End: 10-11-2023 CBC W Auto Differential panel - Blood [facility] Work Phone: Comment on above: Expected: 07/12/2023, Expires: Start: 07-12-2023 End: 10-11-2023 Comprehensive metabolic 2000 panel - Serum or Plasma [facility] Work Phone: Comment on above: Expected: 07/12/2023, Expires: Start: 07-12-2023 End: 10-11-2023 Hemoglobin A1c in Blood [facility] Work Phone: Comment on above: Expected: 07/12/2023, Expires: Start: 07-12-2023 End: 10-11-2023 LIPID PANEL, NONFASTING [facility] Work Phone: Comment on above: Expected: 07/12/2023, Expires: Start: 07-12-2023 End: 10-11-2023 Thyrotropin [Units/volume] in Serum or Plasma [facility] Work Phone: Comment on above: Expected: 07/12/2023, Expires: Start: 07-12-2023 End: 10-11-2023 Thyroxine (T4) free [Mass/volume] in Serum or Plasma [facility] Work Phone: Comment on above: Expected: 07/12/2023, Expires: Start: 07-12-2023 End: 10-11-2023 Triiodothyronine (T3) Free [Mass/volume] in Serum or Plasma [facility] Work Phone: Comment on above: Expected: 07/12/2023, Expires: Start: 06-22-2023 Patient discharge [facility] Start: 06-19-2023 Following clinical pathway protocol [facility] Start: 06-19-2023 Assessment of risk of venous thromboembolism [facility] Start: 06-19-2023 Care regimes management [facility] Start: 06-19-2023 Insertion of catheter into peripheral vein [facility] Start: 02-10-2024 Notification of physician [facility] Start: 06-19-2023 Providing care according to standard [facility] Start: 06-19-2023 Provision of activity privileges [facility] Start: 06-19-2023 Referral to service [facility] Start: 06-19-2023 [facility] Start: 06-19-2023 Admission procedure [facility] Start: 06-19-2023 Hospital admission, emergency, from emergency room, medical nature [facility] Start: 06-19-2023 Patient referral to dietitian [facility] Start: 06-10-2023 Covid-19 Vaccine () Covid-19 Vaccine () [facility] Start: 05-10-2023 Advance Directive Discussion Advance Directive Discussion [facility] Start: 05-10-2023 Depression Assessment Depression Assessment [facility] Start: 02-27-2023 3 comp foot exam completed DIABETIC FOOT EXAM [facility] Start: 02-27-2023 Diabetic foot examination Diabetic Foot Exam [facility] Start: 01-08-2023 Covid-19 Vaccine () Covid-19 Vaccine () [facility] Start: 12-01-2022 FECAL OCCULT BLOOD FECAL OCCULT BLOOD [facility] Start: 11-27-2022 3 comp foot exam completed DIABETIC FOOT EXAM [facility] Start: 11-27-2022 Hepatitis B surface antibody level LDL CHOLESTEROL [facility] Start: 05-30-2022 Hemoglobin A1c measurement HbA1C [facility] Start: 05-30-2022 Hemoglobin A1c/Hemoglobin.total in Blood HBA1C [facility] Start: 05-11-2022 End: 02-05-2023 ALBUMIN/CREAT RATIO RND UR ALBUMIN/CREAT RATIO RND UR Lab Routine Type 2 diabetes mellitus without complication, without long-term current use of insulin (HCC) Expected: 05/11/2022 (Approximate), Expires: 02/05/2023 [facility] Work Phone: Comment on above: Expected: 05/11/2022 (Approximate), Expi res: 02/05/2023 Start: 05-11-2022 End: 02-05-2023 CBC W Auto Differential panel - Blood CBC + DIFF Lab Routine Type 2 diabetes mellitus without complication, without long-term current use of insulin (HCC) Hypercholesteremia Acquired hypothyroidism Syncope, unspecified syncope type Diarrhea, unspecified type Expected: 05/11/2022 (Approximate), Expires: 02/05/2023 [facility] Work Phone: Comment on above: Expected: 05/11/2022 (Approximate), Expi res: 02/05/2023 Start: 05-11-2022 End: 02-05-2023 Comprehensive metabolic 2000 panel - Serum or Plasma COMP METABOLIC PANEL Lab Routine Type 2 diabetes mellitus without complication, without long-term current use of insulin (HCC) Hypercholesteremia Acquired hypothyroidism Expected: 05/11/2022 (Approximate), Expires: 02/05/2023 [facility] Work Phone: Comment on above: Expected: 05/11/2022 (Approximate), Expi res: 02/05/2023 Start: 05-11-2022 End: 02-05-2023 Hemoglobin A1c in Blood HGB A1C Lab Routine Type 2 diabetes mellitus without complication, without long-term current use of insulin (HCC) Expected: 05/11/2022 (Approximate), Expires: 02/05/2023 [facility] Work Phone: Comment on above: Expected: 05/11/2022 (Approximate), Expi res: 02/05/2023 Start: 05-11-2022 End: 02-05-2023 Lipid 1996 panel - Serum or Plasma LIPID PANEL BASIC Lab Routine Type 2 diabetes mellitus without complication, without long-term current use of insulin (HCC) Hypercholesteremia Expected: 05/11/2022 (Approximate), Expires: 02/05/2023 [facility] Work Phone: Comment on above: Expected: 05/11/2022 (Approximate), Expi res: 02/05/2023 Start: 05-11-2022 SHINGRIX VACCINE (2 of 3) SHINGRIX VACCINE (2 of 3) [facility] Comment on above: Postponed from 06/06/2007 (Insurance Cov erage) Start: 02-04-2022 Patient discharge [facility] Work Phone: Start: 02-03-2022 Verification routine [facility] Work Phone: Start: 02-03-2022 Following clinical pathway protocol [facility] Work Phone: Start: 02-03-2022 Assessment of risk of venous thromboembolism [facility] Work Phone: Start: 02-03-2022 Insertion of catheter into peripheral vein [facility] Work Phone: Start: 02-03-2022 Measuring intake and output [facility] Work Phone: Start: 02-03-2022 Oxygen therapy [facility] Work Phone: Start: 02-03-2022 Patient education [facility] Work Phone: Start: 02-03-2022 Providing care according to standard [facility] Work Phone: Start: 02-03-2022 Provision of activity privileges [facility] Work Phone: Start: 02-03-2022 Referral to occupational therapist [facility] Work Phone: Start: 02-03-2022 Referral to service [facility] Work Phone: Start: 02-03-2022 [facility] Work Phone: Start: 02-03-2022 Following clinical pathway protocol [facility] Work Phone: Start: 02-02-2022 Admission procedure [facility] Work Phone: Start: 02-02-2022 [facility] Work Phone: Start: 01-28-2022 End: 02-07-2022 SARS-CoV-2 (COVID-19) RNA [Presence] in Respiratory specimen by MOLLY with probe detection ASYMPTOMATIC ELECTIVE COVID-19 Microbiology Routine Close exposure to COVID-19 virus Expected: 01/28/2022, Expires: 02/07/2022 [facility] Work Phone: Comment on above: Expected: 01/28/2022, Expires: 2 Start: 01-24-2022 Hepatitis B screening URINE ALBUMIN:CREATININE RATIO [facility] Start: 01-24-2022 Hepatitis B surface antibody level LDL CHOLESTEROL [facility] Start: 01-08-2022 Influenza vaccination [facility] Start: 11-27-2021 End: 01-27-2022 CBC W Auto Differential panel - Blood [facility] Work Phone: Comment on above: Expected: 11/27/2021, Expires: 2 Start: 11-27-2021 End: 01-27-2022 Cobalamin (Vitamin B12) [Mass/volume] in Serum or Plasma VITAMIN B12 BLOOD Lab Routine Memory problem Expected: 11/27/2021, Expires: 01/27/2022 [facility] Work Phone: Comment on above: Expected: 11/27/2021, Expires: 2 Start: 11-27-2021 End: 01-27-2022 Comprehensive metabolic 2000 panel - Serum or Plasma [facility] Work Phone: Comment on above: Expected: 11/27/2021, Expires: 2 Start: 11-27-2021 End: 01-27-2022 Hemoglobin A1c in Blood [facility] Work Phone: Comment on above: Expected: 11/27/2021, Expires: 2 Start: 11-27-2021 End: 01-27-2022 Lipid 1996 panel - Serum or Plasma [facility] Work Phone: Comment on above: Expected: 11/27/2021, Expires: 2 Start: 11-27-2021 End: 01-27-2022 Thyrotropin [Units/volume] in Serum or Plasma [facility] Work Phone: Comment on above: Expected: 11/27/2021, Expires: 2 Start: 11-27-2021 Urine microalbumin profile DTAP,TDAP,TD (2 - Td or Tdap) [facility] Comment on above: Postponed from 09/25/2020 (Insurance Cov erage) Start: 11-05-2021 End: 01-05-2022 Hemoglobin A1c in Blood HGB A1C Lab Routine Type 2 diabetes mellitus without complication, without long-term current use of insulin (HCC) Expected: 11/05/2021 (Approximate), Expires: 01/05/2022 [facility] Work Phone: Comment on above: Expected: 11/05/2021 (Approximate), Expi res: 01/05/2022 Start: 11-05-2021 End: 01-05-2022 SCHEDULE LAB TESTING SCHEDULE LAB TESTING Lab Routine Type 2 diabetes mellitus without complication, without long-term current use of insulin (HCC) Expected: 11/05/2021 (Approximate), Expires: 01/05/2022 [facility] Work Phone: Comment on above: Expected: 11/05/2021 (Approximate), Expi res: 01/05/2022 Start: 10-04-2021 COVID-19 VACCINE (5 - Booster for Pfizer series) COVID-19 VACCINE (5 - Booster for Pfizer series) [facility] Start: 07-24-2021 Hemoglobin A1c/Hemoglobin.total in Blood HBA1C [facility] Start: 05-10-2021 ADVANCE DIRECTIVE DISCUSSION ADVANCE DIRECTIVE DISCUSSION [facility] Start: 01-07-2021 3 comp foot exam completed DIABETIC FOOT EXAM [facility] Start: 01-01-2021 COVID-19 VACCINE (3 - Booster for Pfizer series) COVID-19 VACCINE (3 - Booster for Pfizer series) [facility] Start: 09-25-2020 Urine microalbumin profile [facility] Start: 12-20-2019 FECAL OCCULT BLOOD FECAL OCCULT BLOOD [facility] Start: 06-03-2019 Glaucoma screening Dilated Retinal Exam [facility] Start: 06-03-2019 Hepatitis C antibody, confirmatory test DILATED RETINAL EXAM [facility] Start: 06-06-2007 SHINGRIX VACCINE (2 of 3) SHINGRIX VACCINE (2 of 3) [facility] Hemoglobin.gastroint estin al.lower [Presence] in Stool by Immunoassay FECAL OCCULT BLOOD TEST Lab Routine Screening for colon cancer Ordered: 11/27/2021 [facility] Work Phone: Comment on above: Ordered: 11/27/2021 Patient referral [facility] Work Phone: PFIZER-BIONTECH COVI D-19 VACCINE, AGE 12+ YR ([place]IS TOP) PFIZER-BIONTECH COVID-19 VACCINE, AGE 12+ YR (HARRIS TOP) Immunization/Injection Routine Encounter for immunization Ordered: 11/27/2021 [facility] Work Phone: Comment on above: Ordered: 11/27/2021 Tdap vaccine 7 yrs/> im TDAP VAC CINE AGE 7+ IM Immunization/Injection Routine Encounter for immunization 1 Occurrences starting 02/27/2022 [facility] Work Phone: Comment on above: 1 Occurrences starting 02/27/2022 End: 07-18-2024 XR Cervical spine AP and Lateral and oblique XR CERV OTHER 4V AP/LAT/OBL Radiology Routine Neck pain 1 Occurrences starting 06/19/2023 until 07/18/2024 [facility] Work Phone: Comment on above: 1 Occurrences starting 06/19/2023 until 07/18/2024 [facility] Immunizations Immunization Date Immunization Notes Care Provider [facility] 01-12-2024 influenza, high dose seasonal, preservative-free Christina Edmonds RESEARCH ASSISTANT.HIGH PRESSURE BOILER OPERATOR Work Phone: [facility] 01-12-2024 influenza virus vaccine, unspecified formulation Jackie Damon MA [facility] 11-26-2023 COVID-19 vaccine, ag e 12+ yr (MODERNA) Christina Edmonds RESEARCH ASSISTANT.HIGH PRESSURE BOILER OPERATOR Work Phone: [facility] 10-12-2023 tetanus toxoid, redu binta diphtheria toxoid, and acellular pertussis vaccine, adsorbed Christina Edmonds RESEARCH ASSISTANT.HIGH PRESSURE BOILER OPERATOR Work Phone: [facility] 05-21-2023 respiratory syncytia l virus (RSV) vaccine, adjuvanted (AREXVY) Christina Edmonds RESEARCH ASSISTANT.HIGH PRESSURE BOILER OPERATOR Work Phone: [facility] Work Phone: 04-15-2023 COVID-19 vaccine, ag e 12+ yr, bivalent (MODERNA) Christina Grey RESEARCH ASSISTANT.HIGH PRESSURE BOILER OPERATOR Work Phone: [facility] Work Phone: 04-15-2023 COVID-19 vaccine, ag e 6 mo - 11 yr, season (MODERNA) Christina Grey RESEARCH ASSISTANT.HIGH PRESSURE BOILER OPERATOR Work Phone: [facility] 04-15-2023 influenza (HD-IIV4) vaccine, age 65+ yr, high dose, quadrivalent, PF (FLUZONE HIGH-DOSE) Christina Grey RESEARCH ASSISTANT.HIGH PRESSURE BOILER OPERATOR Work Phone: [facility] Work Phone: 04-15-2023 influenza virus vaccine, unspecified formulation Christina Grey RESEARCH ASSISTANT.HIGH PRESSURE BOILER OPERATOR Work Phone: [facility] 02-25-2022 influenza, high dose seasonal, preservative-free Evita Jimenez RESEARCH ASSISTANT.BOX CUTTER Work Phone: [facility] Work Phone: 08-01-2020 [facility] 07-11-2020 Covid (Pfizer) [facility] Work Phone: [facility] 06-28-2019 influenza, high dose seasonal, preservative-free Neema Mills MA [facility] 03-11-2018 influenza, high dose seasonal, preservative-free Neema Mills MA [facility] Work Phone: 12-10-2017 pneumococcal conjuga te vaccine, 13 valent Neema Mills MA [facility] 06-07-2017 influenza, high dose seasonal, preservative-free Neema Mills MA [facility] 05-12-2016 influenza, high dose seasonal, preservative-free Neema Mills MA [facility] 04-08-2011 pneumococcal polysaccharide vaccine, 23 valent Neema Mills MA [facility] 09-25-2010 tetanus toxoid, redu binta diphtheria toxoid, and acellular pertussis vaccine, adsorbed Neema Mills MA [facility] 04-11-2007 zoster vaccine, live Neema Mills MA [facility] NEGATED: Highlighted row has not occurred!11-27-2021 COVID-19 vaccine, age 12+ yr (PFIZER-BIONTMaimaibao - [place] TOP) Evita Jimenez APRN.BOX CUTTER Work Phone: [facility] Work Phone: Comment on above: Deferred: Postponed Payers Date Payer Category Payer Self-pay [id number] 2011 Private Health Insurance [employer] A ETNA MEDICARE SUPPLEMENT [id number] 2011-Present [phone] [address] [address] [place] [address] Indemnity [id number] 2011 Private Health Insurance [id number] 2011 Private Health Insurance [id number] 2005 Medicare MEDICARE MEDICAR E A AND B [id number] 2005-Present [phone] [address] [address] [place] [address] Medicare [id number] 2005 Medicare [id number] 2005 Medicare [id number] Unknown [id number] Unknown [id number] Unknown [id number] Unknown [id number] Social History Date Type Detail Facility Start: 10-30-2015 End: 01-09-2022 Tobacco smoking status NHIS Never smoked tobacco [facility] Start: 10-30-2015 End: 01-09-2022 Tobacco use and exposure Smokeless tobacco non-user [facility] Start: 02-14-2021 End: 08-13-2023 Alcohol intake Not Asked [facility] Start: 1940 Sex Assigned At Not on file [facility] Start: 11-17-2021 End: 02-27-2022 Exposure to SARS-CoV-2 (event) Not sure [facility] Work Phone: Start: 01-19-2022 End: 01-29-2022 Exposure to SARS-CoV-2 (event) Unable to assess [facility] Work Phone: Start: 02-03-2022 End: 06-19-2023 Tobacco smoking status NHIS Unknown if ever smoked [facility] Start: 02-02-2022 Non-smoker [facility] Start: 1940 Sex Assigned At Female W [facility] Start: 06-19-2023 End: 07-20-2023 History of Social function [facility] Work Phone: Start: 06-19-2023 End: 07-20-2023 Tobacco use panel [facility] Work Phone: Adult Depression Screening Assessment 0 [facility] Work Phone: Start: 10-21-2023 End: 08-01-2024 Alcohol intake Lifetime non-drinker (finding) [facility] Start: 04-26-2024 Education 13 [facility] Goals Date Patient Goal Desired Activity /State Functional Status Date Assessment Result Facility 06-22-2023 Functional status Ambulates;Bathroom Priv ilege [facility] Work Phone: 02-04-2022 Functional status Bedrest [facility] Work Phone: 02-03-2022 Functional status None [facility] Work Phone: Mental Status Date Assessment Result Facility 06-22-2023 Cognitive function Voice/Name [facility] Work Phone: 02-04-2022 Cognitive function Voice/Name [facility] Work Phone: Clinical Notes 11-16-2016 to 11-13-2024 Jackie Damon MA - 11/13/2024 2:03 PM Jackie Arnett MA - 11/13/2024 1:04 PM Jackie Arnett MA - 10/10/2024 9:04 AM Christina Cuevas APRN.CNP - 08/01/2024 2:05 PM EDT Note Date & Type Note Facility 11-13-2024 Note HNO ID: [id number] Author: JACKIE DAMON MA Service: ? Author Type: Refrigeration Tech Type: Progress Notes Filed: 11/13/2024 14:07 Note [...] Damon MA November 13, 2024 2:03 PM [facility] 11-13-2024 History of Present illness Narrative [...] 2024 1:05 PM documented in this encounter [facility] 11-13-2024 Note HNO ID: [id number] Author: JACKIE DAMON MA Service: ? Author Type: Refrigeration Tech Type: Progress Notes Filed: 11/13/2024 14:07 Note [...] Damon MA November 13, 2024 1:05 PM [facility] 11-13-2024 Note Patient Outreach (NE TNAV) ALEXANDER XIAO ([id number]) 1940 F Date Time Provider Department 11/13/24 [...] Date Reviewed: 08/01/2024 Reviewed by: Christina Edmonds APRN.HIGH PRESSURE BOILER OPERATOR - Fully Assessed Reason for Visit: Population Health Navigation Outreach [3910] Cmt: [facility] Primary Visit Diagnosis:Type 2 diabetes mellitus without [...] at bedtime. - Underpads 30 X 30 pads 1 Each once daily. Facility-Administered Medications as of 11/13/2024 - cyanocobalamin 1,000 mcg injection Problem List As Of Date 11/13/2024 Noted Resolved Hypothyroidism [E03.9] Hypercholesteremia [E78.00] DM (diabetes mellitus) (HCC) [E11.9] Serum calcium elevated [E83.52] 11/16/2016 12/10/2017 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HCC) [F03.B0] 07/12/2023 Vitamin B 12 deficiency [E53.8] 08/01/2024 Letter Text Encounter Status:Closed by JACKIE DAMON on 11/13/24 [facility] 10-10-2024 Note HNO ID: [id number] Author: JACKIE DAMON MA Service: ? Author Type: Refrigeration Tech Type: Progress Notes Filed: 10/10/2024 09:13 Note [...] Damon MA October 10, 2024 9:04 AM [facility] 10-10-2024 History of Present illness Narrative [...] 2024 9:04 AM documented in this encounter [facility] 10-10-2024 Note Patient Outreach (TRISTA TNAV) ALEXANDER XIAO ([id number]) 1940 F Date Time Provider Department 10/10/24 [...] Date Reviewed: 08/01/2024 Reviewed by: Christina Edmonds APRN.HIGH PRESSURE BOILER OPERATOR - Fully Assessed Reason for Visit: Population Health Navigation Outreach [3910] [facility] Prescriptions as of 10/10/2024 - QUEtiapine (SEROQUEL) [...] at bedtime. - Underpads 30 X 30 pads 1 Each once daily. 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] 07/12/2023 Vitamin B 12 deficiency [E53.8] 08/01/2024 Letter Text Encounter Status:Closed by JACKIE DAMON on 10/10/24 [facility] 08-28-2024 Telephone encounter Note Prescription Refill [...] Esther Gutiérrez August 28, 2024 10:11 AM [facility] 08-28-2024 Miscellaneous Notes Prescription Refill Information [...] 2024 10:11 AM documented in this encounter [facility] 08-17-2024 Telephone encounter Note Leatha with [facility] calls to review patient medications to see [...] pass information on to house doctor at [facility] to see how they want to proceed with medication management. Tamara Michelle RN [facility] 08-17-2024 Miscellaneous Notes Leatha with [facility] calls to review patient medications to see [...] pass information on to house doctor at [facility] to see how they want to proceed with medication management. Tamara Michelle RN documented in this encounter [facility] 08-07-2024 Telephone encounter Note Signed encounter form has been faxed. [facility] 08-07-2024 Miscellaneous Notes Signed encounter form has been faxed. Please send signed encounter, thanks! Patient chema Fofana calling back [facility] needs an order to discontinue the Vitamin B 12 injections. Spoke with hcema Fofana gave information provided. Pt voices understanding. B12 has returned to with in normal limits, no need to continue these while in [facility], we can resume them once she follows back up with our office. Chema Fofana is calling as he received a call from [facility] in regards to the Vit B-12 inj and if patient should be getting this at [facility]. Please advise Brigido documented in this encounter [facility] 08-07-2024 Telephone encounter Note Please send signed encounter, thanks! [facility] 08-07-2024 Telephone encounter Note Patient chema Fofana calling back [facility] needs an order to discontinue the Vitamin B 12 injections. [facility] 08-07-2024 Telephone encounter Note Spoke with chema Fofana gave information provided. Pt voices understanding. [facility] 08-07-2024 Telephone encounter Note B12 has returned to with in normal limits, no need to continue these while in [facility], we can resume them once she follows back up with our office. [facility] 08-07-2024 Telephone encounter Note Chema Fofana is calling as he received a call from [facility] in regards to the Vit B-12 inj and if patient should be getting this at [facility]. Please advise Brigido [facility] 08-04-2024 Telephone encounter Note Chema Fofana aware of new order. Encounter faxed to [facility] to update their record of order. [facility] 08-04-2024 Miscellaneous Notes Chema Fofana aware of new order. Encounter faxed to [facility] to update their record of order. Please call and let family know that labs are back and most significantly show a low vitamin d level. I am sending in a vitamin D supplement for her to add to her daily medications. documented in this encounter [facility] 08-02-2024 Telephone encounter Note Please call and let family know that labs are back and most significantly show a low vitamin d level. I am sending in a vitamin D supplement for her to add to her daily medications. [facility] 08-01-2024 Note HNO ID: [id number] Author: CHRISTINA EDMONDS APRN.CNP Service: ? Author [...] 120/68 Pulse 80 Ht 173 cm (5' 8.11) Wt 66.8 kg (147 lb 4.3 oz) [...] surgery and is currently in rehabilitation at [facility] which has been a significant adjustment for her. Family has spoke with admissions there and has been able to arrange for her to go to [facility] for respite care and stay in a room with Robert. Alexander had a skin tear on her leg after sliding out of her czbtauw-ng-uqs's truck. The wound is reportedly improving and is not causing pain. She has been using bacitracin ointment for the wound. She has a history of low B12 and vitamin D levels. She had breakfast around 1030 today and has not yet had lunch. The patient/family consented to the use of [employer] software for draft documentation of the visit consistent with [facility]?s Notice of Privacy Practices. Her medications [...] daily at bedtime. Underpads 30 X 30 pads 1 Each once daily. Current Facility-Administered Medications Medication Dose Route Frequency cyanocobalamin 1,000 mcg injection 1,000 mcg INTRAMUSCULAR q 1 MONTH ALLERGIES No Known Allergies ACTIVE PROBLEM LIST Moderate Dementia (Hcc) - 07/12/2023 Hypothyroidism Hypercholesteremia Dm (Diabetes Mellitus) ([facility]) Social History Tobacco Use Smoking status: Never Smokeless tobacco: Never Vaping Use Vaping status: Never Used Substance Use Topics Alcohol use: Never Drug use: Never Review of Systems OBJECTIVE BP 120/68 Pulse 80 Ht 5' 8.11 (1.73m) Wt 147 lb 4.3 oz (66.8kg) SpO2 98% BMI 22.32 kg/(m2). Physical Exam Vitals and nursing note reviewed. Constitutional: General: She is awake. She is not in acute distress. Appearan (more content not included)... [facility] 08-01-2024 History of Present illness Narrative [...] care team: Patient Care Team: Christina Edmonds APRN.HIGH PRESSURE BOILER OPERATOR as PCP - General (Internal Medicine) Dr. [...] 120/68 Pulse 80 Ht 173 cm (5' 8.11) Wt 66.8 kg (147 lb 4.3 oz) [...] surgery and is currently in rehabilitation at [facility] which has been a significant adjustment for her. Family has spoke with admissions there and has been able to arrange for her to go to [facility] for respite care and stay in a room with Robert. Alexander had a skin tear on her leg after sliding out of her yhquewv-mb-ocw's truck. The wound is reportedly improving and is not causing pain. She has been using bacitracin ointment for the wound. She has a history of low B12 and vitamin D levels. She had breakfast around 1030 today and has not yet had lunch. The patient/family consented to the use of [employer] software for draft documentation of the visit consistent with [facility] s Notice of Privacy Practices. Her [...] daily at bedtime. Underpads 30 X 30 pads 1 Each once daily. Current Facility-Administered Medications Medication Dose Route Frequency cyanocobalamin 1,000 mcg injection 1,000 mcg INTRAMUSCULAR q 1 MONTH ALLERGIES No Known Allergies ACTIVE PROBLEM LIST Moderate Dementia (Hcc) - 07/12/2023 Hypothyroidism Hypercholesteremia Dm (Diabetes Mellitus) ([facility]) Social History Tobacco Use Smoking status: Never Smokeless tobacco: Never Vaping Use Vaping status: Never Used Substance Use Topics Alcohol use: Never Drug use: Never Review of Systems OBJECTIVE BP 120/68 Pulse 80 Ht 5' 8.11 (1.73m) Wt 147 lb 4.3 oz (66.8kg) [...] - Facilitate paperwork for respite care at [facility] to allow patient to be with her [...] Christina Edmonds APRN-RANDI documented in this encounter [facility] 08-01-2024 Instructions Christina Edmonds APRN.CNP - [...] review all the medicines you take, even hfpp-lru-lppaphl medicines. As you get older, the way [...] certain medical conditions. documented in this encounter [facility] 07-31-2024 Miscellaneous Notes Ruby with [facility] calls to request most recent OV note and med list for respite stay at [facility]. Faxed to [phone] per request. Ruby aware that it is from 03/2024 but wanted it any ways to get the process started aware that patient has appt on 08/07/2024. Ruby also reports that patient will need an order that provider agrees with respite stay. Tamara Michelle RN Patient manuel Negrete calling she has started the process of having her aunt admitted to [facility]. She said needed letter and copy of last office notes from 03/2024 signed. Advised [facility] usually needs a more recent office visit note and admission orders completed. She said has appt scheduled for end july with Christina. documented in this encounter [facility] 07-31-2024 Telephone encounter Note Ruby with [facility] calls to request most recent OV note and med list for respite stay at [facility]. Faxed to [phone] per request. Ruby aware that it is from 03/2024 but wanted it any ways to get the process started aware that patient has appt on 08/07/2024. Ruby also reports that patient will need an order that provider agrees with respite stay. Tamara Michelle RN [facility] 07-28-2024 Telephone encounter Note Patient manuel Negrete calling she has started the process of having her aunt admitted to [facility]. She said needed letter and copy of last office notes from 03/2024 signed. Advised [facility] usually needs a more recent office visit note and admission orders completed. She said has appt scheduled for end july with Christina. [facility] 07-24-2024 Telephone encounter Note Called and spoke with pharmacist at [facility]. She asked if pt was taking her [...] will check with pharmacy so closing encounter. [facility] 07-24-2024 Miscellaneous Notes Called and [facility] pharmacist [facility]. She asked if pt was [...] so closing encounter. documented in this encounter [facility] 07-24-2024 Telephone encounter Note Called and spoke with pharmacist at [facility]. She asked if pt was [...] will check with pharmacy so closing encounter. [facility] 07-24-2024 Miscellaneous Notes Called and spoke with pharmacist at [facility]. She asked if pt was [...] and needs refill. documented in this encounter [facility] 07-24-2024 Telephone encounter Note Pt called to make sure that refill request for Levothyroxine was received from [facility] PT is almost out of medication and needs refill. [facility] 07-19-2024 Note HNO ID: [id number] Author: GEMMA SAEED APRN.HIGH PRESSURE BOILER OPERATOR Service: ? Author Type: Nurse Practitioner [...] 90 tabletRfl: 3 Underpads 30 X 30 pads1 Each once daily.Disp: 100 EachRfl: 3 [...] BACITRACIN 500 UNIT/GRAM TOPICAL OINTMENT Gemma Saeed APRN.HIGH PRESSURE BOILER OPERATOR MDM Procedures [facility] 07-19-2024 History of Present illness Narrative [...] 90 tablet^Rfl: 3 Underpads 30 X 30 pads^1 Each once daily.^Disp: 100 Each^Rfl: 3 [...] BACITRACIN 500 UNIT/GRAM TOPICAL OINTMENT Gemma Saeed APRN.HIGH PRESSURE BOILER OPERATOR MDM Procedures documented in this encounter [facility] 05-17-2024 Note HNO ID: [id number] Author: KILEY TAVAREZ LPN Service: ? Author Type: LICENSED NURSE Type: Progress Notes Filed: 05/17/2024 14:17 Note Text: Patient presents for B-12 injection. Denies any problems at this time. Patient instructed on any SE of medication, verbalized understanding and agreed to proceed with treatment. Tolerated injection well. Kiley Tavarez LPN [facility] 05-17-2024 History of Present illness Narrative Patient presents for B-12 injection. Denies any problems at this time. Patient instructed on any SE of medication, verbalized understanding and agreed to proceed with treatment. Tolerated injection well. Kiley Tavarez LPN documented in this encounter [facility] 05-15-2024 Telephone encounter Note OK to refill as ordered Terrance Andersen MD [facility] 05-15-2024 Miscellaneous Notes OK to refill [...] you. Dulce Dale. documented in this encounter [facility] 05-15-2024 Telephone encounter Note Patient has [...] 09/11/2024 Please advise. Thank you. Dulce Dale. [facility] 05-08-2024 Note HNO ID: [id number] Author: KILEY TAVAREZ LPN Service: ? Author Type: LICENSED NURSE Type: Progress Notes Filed: 05/08/2024 13:14 Note Text: Patient presents for B-12 injection. Denies any problems at this time. Patient instructed on any SE of medication, verbalized understanding and agreed to proceed with treatment. Tolerated injection well. Kiley Tavarez LPN [facility] 05-08-2024 History of Present illness Narrative Patient presents for B-12 injection. Denies any problems at this time. Patient instructed on any SE of medication, verbalized understanding and agreed to proceed with treatment. Tolerated injection well. Kiley Tavarez LPN documented in this encounter [facility] 05-01-2024 Note HNO ID: [id number] Author: KILEY TAVAREZ LPN Service: ? Author Type: LICENSED NURSE Type: Progress Notes Filed: 05/01/2024 13:17 Note Text: Patient presents for B-12 injection. Denies any problems at this time. Patient instructed on any SE of medication, verbalized understanding and agreed to proceed with treatment. Tolerated injection well. Kiley Tavarez LPN [facility] 05-01-2024 History of Present illness Narrative Patient presents for B-12 injection. Denies any problems at this time. Patient instructed on any SE of medication, verbalized understanding and agreed to proceed with treatment. Tolerated injection well. Kiley Tavarez LPN documented in this encounter [facility] 04-27-2024 Telephone encounter Note Patient scheduled for nurse visit 05/01/24 to receive B-[address]. [address] order at this time. Kiley Tavarez LPN [facility] 04-27-2024 Miscellaneous Notes Patient scheduled for nurse visit 05/01/24 to receive B-[address]. [address] order at this time. Kiley Tavarez LPN documented in this encounter [facility] 04-27-2024 Telephone encounter Note returned call and given provider's message below with verbalized understanding. spoke with patient and states she is agreeable. Scheduled the 4 weekly B12 inj with nurse. Pt understands after the 4 weekly shots she will go to monthly shots. [facility] 04-27-2024 Miscellaneous Notes returned call and [...] Jose Jean-Baptiste MD documented in this encounter [facility] 04-27-2024 Telephone encounter Note Called and left a voicemail for the patient to call back and ask for a nurse to receive the providers message. [facility] 04-27-2024 Telephone encounter Note Vit b12 is on the lower side. Could be causing some of the dementia but may not all Would like for her to take vit b12 injections. I will place that order, please 1000 mcg weekly for 4 weeks and then months RegardsJose MD [facility] 04-26-2024 Instructions Jose Jenkins MD - 04/26/2024 3:49 PM EST Drink at least 64 ounces of water Do not drive anywhere on your own Try to get 30 mins of exercise every day documented in this encounter [facility] 04-26-2024 Note HNO ID: [id number] Author: JOSE JENKINS MD Service: ? Author Type: Physician Type: Progress Notes Filed: 04/26/2024 16:21 Note Text: [facility] Initial Consult Alexander Xiao is a 83 year old year old female who comes for Comprehensive Geriatric Assessment. Pt accompanied by: - Robert- Caregivers involved in care: he is the main caregiver, they do not have children. They are marries 50 years. HPI: This is a 83-year-old with diabetes mellitus hypothyroidism and moderate dementia. Was diagnosed this year at [facility] with moderate dementia. She is dependent on [...] a secure place Social History: Primary language: Lao Marital Status: Living situation: Home w/ Spouse Socially engaged? (participates in activities such as clubs, yazidism, community center, sports, games, visiting friends/relatives, etc?): YES Go out to eat daily and do grocery shopping. Caregiver [place] and Stress Are your feeling overwhelmed? NO [...] PSHx: PAST JOHN (more content not included)... [facility] 04-26-2024 History of Present illness Narrative [facility] Initial Consult Alexander Xiao is a 83 year old year old female who comes for Comprehensive Geriatric Assessment. Pt accompanied by: - Robert- Caregivers involved in care: he is the main caregiver, they do not have children. They are marries 50 years. HPI: This is a 83-year-old with diabetes mellitus hypothyroidism and moderate dementia. Was diagnosed this year at [facility] with moderate dementia. She is dependent on [...] a secure place Social History: Primary language: Lao Marital Status: Living situation: Home w/ Spouse Socially engaged? (participates in activities such as clubs, yazidism, community center, sports, games, visiting friends/relatives, etc?): YES Go out to eat daily and do grocery shopping. Caregiver [place] and Stress Are your feeling overwhelmed? NO [...] , Taking? Yes, Authorizing Provider Christina Edmonds APRN.HIGH PRESSURE BOILER OPERATOR Medication metFORMIN (GLUCOPHAGE) 500 mg tablet, Sig Take 2 tablets by mouth daily with breakfast AND 1 tablet daily with dinner., Start Date 03/14/24, End Date , Taking? Yes, Authorizing Provider Christina Edmonds APRN.HIGH PRESSURE BOILER OPERATOR Medication QUEtiapine (SEROQUEL) 50 mg tablet, Sig Take 1 tablet by mouth daily at bedtime., Start Date 03/10/24, End Date , Taking? Yes, Authorizing Provider Christina Edmonds APRN.HIGH PRESSURE BOILER OPERATOR Medication levothyroxine (SYNTHROID) 112 mcg tablet, Sig Take 1 tablet by mouth once daily. For 6 days of the week., Start Date 02/11/24, End Date , Taking? Yes, Authorizing Provider Christina Edmonds APRN.HIGH PRESSURE BOILER OPERATOR Medication melatonin 10 mg tab, Sig Take 1 tablet by mouth daily at bedtime., Start Date 02/11/24, End Date , Taking? Yes, Authorizing Provider Christina Edmonds APRN.HIGH PRESSURE BOILER OPERATOR Medication busPIRone (BUSPAR) 5 mg tablet, Sig Take 1 tablet by mouth two times a day., Start Date 02/08/24, End Date , Taking? Yes, Authorizing Provider Christina Edmonds APRN.HIGH PRESSURE BOILER OPERATOR Medication simvastatin (ZOCOR) 40 mg tablet, Sig Take 1 tablet by mouth daily at bedtime., Start Date 10/21/23, End Date , Taking? Yes, Authorizing Provider Jose Corbett MD Medication Underpads 30 X 30 pads, Sig 1 Each once daily., Start Date 07/12/23, End Date , Taking? Yes, Authorizing Provider Christina Edmonds APRN.HIGH PRESSURE BOILER OPERATOR Other OTC med/supplements: no Medication Review: - ANY HIGH RISK MEDICATIONS (STOPP CRITERIA): NO ALLERGIES No Known Allergies Review of Systems Difficulty chew/swallow: no Pain: no Tremor: no Incontinence - During the last 3 months did you leak urine? NO - Type?: mixed incontinence Constipation/Change in bowel habits: NO Vision No vision problems reported Follows with community affairs manager:YES Hearing - Hearing aid : Hearing [...] Exam (MOCA): 12/06 Mini-Mental State Exam (MMSE): 2130 CDR Dementia Scale 1) Subjective Memory Loss: [...] understands and she says she goes to [employer] every day for lunch and she will [...] physical exercise and socialization Jose Jenkins MD [facility] documented in this encounter [facility] 04-25-2024 Note HNO ID: [id number] Author: DAGMAR ORTIZ, ? Service: ? Author [...] Objective: [facility] V[facility]: DP and PT pulses are palpable [...] RTC in 3-4 months. Dagmar Ortiz DPM [facility] 04-25-2024 History of Present illness Narrative [...] Loraine Santiago LPN documented in this encounter [facility] 04-25-2024 Note HNO ID: [id number] Author: LORAINE SANTIAGO LPN Service: ? Author Type: LICENSED NURSE Type: Progress Notes Filed: 04/25/2024 13:45 Note Text: AMB ROOMING INTAKE FLOWSHEET DATA Patient presents with: Left Foot - Established Patient, Follow Up, Diabetic Foot Care Right Foot - Established Patient, Follow Up, Diabetic Foot Care Loraine Santiago LPN [facility] 03-14-2024 Note HNO ID: [id number] Author: CHRISTINA EDMONDS APRN.RANDI Service: ? Author Type: Nurse Practitioner [...] daily with dinner. Underpads 30 X 30 pads 1 Each once daily. No current facility-administered medications for this visit. 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) Social History Tobacco Use Smoking status: Never [...] issues with a (more content not included)... [facility] 03-14-2024 History of Present illness Narrative [...] daily with dinner. Underpads 30 X 30 pads 1 Each once daily. No current facility-administered medications for this visit. ALLERGIES No Known Allergies ACTIVE PROBLEM LIST Moderate Dementia ([facility]) - 07/12/2023 Hypothyroidism Hypercholesteremia Dm (Diabetes Mellitus) ([facility]) Social History Tobacco Use Smoking status: Never [...] Christina Edmonds APRN-RANDI documented in this encounter [facility] 03-10-2024 Telephone encounter Note Prescription Refill [...] Loreto Stephens March 10, 2024 9:35 AM [facility] 03-10-2024 Miscellaneous Notes Prescription Refill Information [...] 2024 9:35 AM documented in this encounter [facility] 02-10-2024 Telephone encounter Note Appears patients [...] many pills. - MELATONIN 10 MG TABLET [facility] 02-10-2024 Miscellaneous Notes Appears patients melatonin [...] N/A Please return call to , Jude [phone] Was an appointment scheduled: No Closing statement: Results or non-symptom based questions: Thank you for calling [facility], your call will be returned within the next business day. Suri Ladd documented in this encounter [facility] 02-10-2024 Telephone encounter Note Patient's is calling Christina Edmonds APRN.CNP today with concern regarding Medication Problem. states that medication melatonin 10 mg tab has not been called into pharmacy. Patient takes the medication 3x/daily and is asking for a 90 day supply. Patient has been identified by name and birthdate. Duration of symptoms: N/A Please return call to Jude beltran [phone] Was an appointment scheduled: No Closing statement: Results or non-symptom based questions: Thank you for calling [facility], your call will be returned within the next business day. Suri Ladd [facility] 02-10-2024 Telephone encounter Note Prescription Refill [...] PLEASE NOTE: On 11/16/23, Levothyroxine was MED UPDATEMaria Eugenia Gutiérrez February 10, 2024 8:54 AM [facility] 02-10-2024 Miscellaneous Notes Prescription Refill Information [...] 2024 8:54 AM documented in this encounter [facility] 02-07-2024 Telephone encounter Note Patient has [...] 03/14/2024 Please advise. Thank you. Dulce Dale. [facility] 02-07-2024 Miscellaneous Notes Patient has been [...] you. Dulce Dale. documented in this encounter [facility] 01-25-2024 Note HNO ID: [id number] Author: DAGMAR ORTIZ, ? Service: ? Author [...] Patient presents to clinic ambulating in k canadian tennis shoes Vasc: DP and PT pulses [...] RTC in 3-4 months. Dagmar Ortiz DPM [facility] 01-25-2024 History of Present illness Narrative [...] Patient presents to clinic ambulating in k [place] tennis shoes Vasc: DP and PT pulses [...] complication, without long-term current use of insulin ([facility]) Plan: Patient was seen and evaluated. Nails [...] care. SERENE 10/21/23 documented in this encounter [facility] 01-25-2024 Instructions Dagmar Ortiz - 01/25/2024 [...] or sore from your shoes, do not pop it. Apply a bandage and wear a different pair of shoes. Take Care of Your Toenails Cut toenails after bathing, when they are soft. Cut toenails straight across and smooth with a nail file. Avoid cutting into the corners of toes. Do not cut cuticles. If you have neuropathy (or decreased sensation in your feet) a cloth shrinking machine operator should always cut your toenails. Be Careful [...] your shoes are too tight. Perform the footwear test described below. Footwear Test Use this simple [...] Go to your health care provider or cloth shrinking machine operator to treat these conditions. documented in this encounter [facility] 01-25-2024 Note HNO ID: [id number] Author: RACH GATICA RN Service: ? Author Type: Registered Nurse Type: Progress Notes Filed: 01/25/2024 11:21 Note Text: Patient presents with: Left Foot - Established Patient, Follow Up, Diabetic Foot Care Right Foot - Established Patient, Follow Up, Diabetic Foot Care Patient presents for follow up diabetic foot care. SERENE 10/21/23 [facility] 12-09-2023 Telephone encounter Note Prescription Refill [...] Teresa Gutiérrez December 09, 2023 9:30 AM [facility] 12-09-2023 Miscellaneous Notes Prescription Refill Information [...] 2023 9:30 AM documented in this encounter [facility] 11-16-2023 Telephone encounter Note PATIENT's NOTIFIED OF SAME. [facility] 11-16-2023 Miscellaneous Notes PATIENT's NOTIFIED OF SAME. Please call and let know Alexander's blood work shows blood sugars are improving. Thyroid is now overactive, they can reduce her synthroid to 6 days a week instead of daily. Christina Edmonds APRN.CNP documented in this encounter [facility] 11-16-2023 Telephone encounter Note Please call and let know Alexander's blood work shows blood sugars are improving. Thyroid is now overactive, they can reduce her synthroid to 6 days a week instead of daily. Christina Edmonds APRN.CNP [facility] 11-12-2023 History of Present illness Narrative [...] the bathroom most nights. Sometimes a little testy, not always excited to take medications but [...] day with meals. Underpads 30 X 30 pads 1 Each once daily. No current facility-administered medications for this visit. ALLERGIES No Known Allergies ACTIVE PROBLEM LIST Moderate Dementia ([facility]) - 07/12/2023 Hypothyroidism Hypercholesteremia Dm (Diabetes Mellitus) ([facility]) Social History Tobacco Use Smoking status: Never [...] Christina Edmonds APRN-RANDI documented in this encounter [facility] 11-08-2023 Telephone encounter Note Prescription Refill [...] tablets by mouth daily at bedtime. Aleah Clark [facility] November 08, 2023 8:58 AM [facility] 11-08-2023 Miscellaneous Notes Prescription Refill Information [...] tablets by mouth daily at bedtime. Aleah Clark [facility] November 08, 2023 8:58 AM documented in this encounter [facility] 11-04-2023 Telephone encounter Note Prescription Refill [...] mouth two times a day. Esther Cox [facility] November 04, 2023 9:27 AM [facility] 11-04-2023 Miscellaneous Notes Prescription Refill Information [...] 2023 9:27 AM documented in this encounter [facility] 10-21-2023 Telephone encounter Note The following approved medication requests have been transmitted electronically. Requested Prescriptions Signed Prescriptions Disp Refills simvastatin (ZOCOR) 40 mg tablet 90 tablet 3 Sig: Take 1 tablet by mouth daily at bedtime. Authorizing Provider: JOSE CORBETT levothyroxine (SYNTHROID) 112 mcg tablet 90 tablet 3 Sig: Take 1 tablet by mouth once daily. Authorizing Provider: JOSE CORBETT MD [facility] 10-21-2023 Miscellaneous Notes The following approved [...] [facility] [place] [facility] and a refill for the simvastatin. Caitlin Gutiérrez October 21, 2023 9:47 AM documented in this encounter [facility] 10-21-2023 History of Present illness Narrative [...] Objective: [facility]: DP and PT pulses are faintly [...] complication, without long-term current use of insulin ([facility]) Plan: Patient was seen and evaluated. Nails [...] presents for follow up diabetic foot/nail care. [facility] 07/20/23. documented in this encounter [facility] 10-21-2023 Instructions Dagmar Ortiz - 10/21/2023 [...] or sore from your shoes, do not pop it. Apply a bandage and wear a different pair of shoes. Take Care of Your Toenails Cut toenails after bathing, when they are soft. Cut toenails straight across and smooth with a nail file. Avoid cutting into the corners of toes. Do not cut cuticles. If you have neuropathy (or decreased sensation in your feet) a cloth shrinking machine operator should always cut your toenails. Be Careful [...] your shoes are too tight. Perform the footwear test described below. Footwear Test Use this simple [...] Go to your health care provider or cloth shrinking machine operator to treat these conditions. documented in this encounter [facility] 10-21-2023 Telephone encounter Note Prescription Refill [...] [facility] [place] [facility] and a refill for the simvastatin. Caitlin Gutiérrez October 21, 2023 9:47 AM [facility] 09-24-2023 Telephone encounter Note Noted and agree. [facility] 09-24-2023 Miscellaneous Notes Noted and agree. This nurse asked to call Jude bartlett/c [...] 911. Jude agreeable. documented in this encounter [facility] 09-24-2023 Telephone encounter Note This nurse asked to call Jude bartlett/c patient took too many pills Phoned Jude who reports patient took a lot of [...] Advised Jude to call 911. Jude agreeable. [facility] 08-13-2023 History of Present illness Narrative [...] daily at bedtime. Underpads 30 X 30 pads 1 Each once daily. simvastatin (ZOCOR) [...] Known Allergies ACTIVE PROBLEM LIST Moderate Dementia ([facility]) - 07/12/2023 Hypothyroidism Hypercholesteremia Dm (Diabetes Mellitus) ([facility]) Social History Tobacco Use Smoking status: Never [...] with other behavioral disturbance, unspecified dementia type ([facility]) - ICD9: 294.21, ICD10: F03.B18 Stable. 3. [...] Christina Edmonds APRN-RANDI documented in this encounter [facility] 08-09-2023 Miscellaneous Notes TC to Robert/spouse, he picked up Buspar, Aricept and Seroquel 50mg today from [facility]. Patient does not need any medication refills at this time. Patient is taking Seroquel 50mg last written by Christina Edmonds FORGER HELPER. is wanting PCP changed to Christina Edmonds FORGER HELPER, is agreed will changed. Jael Rosales LPN [...] you. Loreto Stephens. documented in this encounter [facility] 07-27-2023 History of Present illness Narrative [...] daily at bedtime. Underpads 30 X 30 pads 1 Each once daily. simvastatin (ZOCOR) [...] Known Allergies ACTIVE PROBLEM LIST Moderate Dementia ([facility]) - 07/12/2023 Hypothyroidism Hypercholesteremia Dm (Diabetes Mellitus) ([facility]) Social History Tobacco Use Smoking status: Never [...] Christina Edmonds APRN-RANDI documented in this encounter [facility] 07-21-2023 Miscellaneous Notes Wound culture reveals bacterial growth. The sensitivity does not reveal input related to Doxycyline. Patient did follow up with Christina Edmonds yesterday. She stopped the Doxy and started Augmentin. Spoke with He states that the wound is improving. Encouraged to complete all of the ATB and follow up with Christina Edmonds. documented in this encounter [facility] 07-20-2023 Instructions Christina Edmonds APRN.CNP - 07/20/2023 1:07 PM EDT Stop the doxycycline, start Augmentin for x10 days. Soak the finger 3 times a day and apply the mupirocin. documented in this encounter [facility] 07-20-2023 History of Present illness Narrative Images from the original note were not included. SUBJECTIVE Alexander Xiao is a 82 year old female here today for a check up on her medical problems. Chief Complaint Patient presents with: [facility] HPI Alexander Xiao is [...] daily at bedtime. Underpads 30 X 30 pads 1 Each once daily. simvastatin (ZOCOR) [...] Known Allergies ACTIVE PROBLEM LIST Moderate Dementia ([facility]) - 07/12/2023 Hypothyroidism Hypercholesteremia Dm (Diabetes Mellitus) ([facility]) Social History Tobacco Use Smoking status: Never [...] Christina Edmonds APRN-RANDI documented in this encounter [facility] 07-20-2023 Instructions Dagmar Ortiz - 07/20/2023 [...] or sore from your shoes, do not pop it. Apply a bandage and wear a different pair of shoes. Take Care of Your Toenails Cut toenails after bathing, when they are soft. Cut toenails straight across and smooth with a nail file. Avoid cutting into the corners of toes. Do not cut cuticles. If you have neuropathy (or decreased sensation in your feet) a cloth shrinking machine operator should always cut your toenails. Be Careful [...] your shoes are too tight. Perform the footwear test described below. Footwear Test Use this simple [...] Go to your health care provider or cloth shrinking machine operator to treat these conditions. documented in this encounter [facility] 07-20-2023 History of Present illness Narrative [...] daily at bedtime. Underpads 30 X 30 pads 1 Each once daily. simvastatin (ZOCOR) [...] Objective: [facility] Constitutional: Pt is a well developed 82 [...] diabetic foot exam. documented in this encounter [facility] 07-17-2023 Instructions Rena Romo APRN.RANDI - 07/17/2023 12:38 PM EST Warm soaks [...] follow up appointment. documented in this encounter [facility] 07-17-2023 History of Present illness Narrative Images from the original note were not included. Subjective The history is provided by the patient and the spouse. No speech language pathologist was used. HPI Alexander Xiao is a [...] have confirmed and edited as necessary, the [facility] Review of Systems Constitutional: Negative for [...] evaluation. Rena Romo APRN.CNP documented in this encounter [facility] 07-12-2023 History of Present illness Narrative [...] information. Just recently she was admitted to [facility] and then transferred to [facility] in [place]. Admitted there on 06/22/2023 and then discharged [...] daily at bedtime. Underpads 30 X 30 pads 1 Each once daily. No current [...] - ICD9: 788.36, ICD10: N39.44 - UNDERPADS 30 X 30 - UNDERPADS 30 X 30 7. Encounter for therapeutic drug monitoring - ICD9: V58.83, ICD10: Z51.81 - CBC + DIFF - COMP METABOLIC PANEL Christina Edmonds APRN.HIGH PRESSURE BOILER OPERATOR documented in this encounter [facility] 06-21-2023 Discharge summary Note Date/Time June 21, 2023 4:48pm [facility] Medical Records Department [address] [place] [address] Instructions for Home/Discharge Instructions 06/21/23 1648 MR#: [id number] Acct: [id number] Name: ALEXANDER XIAO Rep #:[id number] : 1940 82 From: Teddy hill DO [...] Referrals / Follow Up: Evita Jimenez NP, SAMANTHA-C [Primary Care Provider] - Disposition Disposition (needs filled in before D/C Order can be placed): [facility] Hospital [facility] Unit 06/22/23 0952<Electronically signed by Teddy Turpin DO>Teddy Turpin DO CC: SAMANTHA-C Evita Jimenez; Dr. Viri Mcclelland MD ~ Signed [facility] Work Phone: 1(336) 417-184402-12-2024 Progress note Author [facility] June 21, 2023 4:47pm Note Date/Time June 21, 2023 1:27pm [facility] Medical Records Department [address] [place] [address] Progress Note - Hospitalist 06/21/23 1327 MR#: [id number] Acct: [id number] Name: ALEXANDER XIAO Rep #:[id number] : 1940 82 From: Teddy hill DO PCP: BECKY Nash Status:ADM ELAINE Location: [place] [address] Reason for Visit Reason for Visit: Diagnoses [...] Patient is an 82-year-old female who presented [facility] ED on 06/19/2023 with altered mentation. 1. [...] psychiatric facility for martha-psych evaluation on 06/21. [place] slip placed. Crisis consulted. Will continue Seroquel [...] 35 minutes. Charges/Coding Visit Charges Inpatient E&M: 76340 Subs Hosp L2 06/21/23 1647 <Electronically signed by Teddy Turpin DO> Cosigner Signature (if applicable): CC: ~ Signed [facility] Work Phone: 1(494) 626-108202-12-2024 Progress note Author [facility] June 21, 2023 2:35pm Note Date/Time June 21, 2023 2:35pm [facility] Medical Records Department [address] [place] [address] Progress Note - Hospitalist 06/21/23 1432 MR#: [id number] Acct: [id number] Name: ALEXANDER XIAO Rep #:[id number] : 1940 82 From: Teddy hill DO PCP: BECKY Nash Status:ADM ELAINE Location: [place] [address] Hospitalist Note Patient admitted on 06/19 for [...] Cosigner Signature (if applicable): CC: ~ Signed [facility] Work Phone: 1(109) 128-971402-11-2024 Progress note Author Teddy [facility] June 20, 2023 4:52pm Note Date/Time June 20, 2023 3:46pm [facility] Medical Records Department [address] [place] [address] Progress Note - Hospitalist 06/20/23 1546 MR#: [id number] Acct: [id number] Name: ALEXANDER XIAO Rep #:[id number] : 1940 82 From: Teddy hill DO PCP: BECKY Nash Status:ADM ELAINE Location: [place] [address] Reason for Visit Reason for Visit: Diagnoses [...] % (Auto) 66.0, Lymph % (Auto) 24.3, Karnes% (Auto) 7.0, Eos % (Auto) 1.3, Baso [...] Clarity Clear, Urine pH 6.0, Ur Specific [place] 1.015, Urine Protein Negative, Urine Glucose (UA) [...] % (Auto) 51.1, Lymph % (Auto) 35.5, Karnes % (Auto) 10.2 H, Eos % (Auto) [...] Patient is an 82-year-old female who presented [facility] ED on 06/19/2023 with altered mentation. 1. [...] 35 minutes. Charges/Coding Visit Charges Inpatient E&M: 38307 Subs Hosp L2 06/20/23 1652 <Electronically signed by Teddy Turpin DO> Cosigner Signature (if applicable): CC: ~ Signed [facility] Work Phone: 1(247) 586-397802-10-2024 History and physical note Author Viri Mcclelland [facility] June 19, 2023 7:47pm Note Date/Time June 19, 2023 7:29pm [facility] Medical Records Department [address] [place] [address] H&P Exam - Hospitalist 06/19/231924 MR#: [id number] Acct: [id number] Name: ALEXANDER XIAO Rep #:[id number] : 1940 82 From: Viri Mcclelland MD PCP: BECKY Nash Status:ADM ELAINE Location: [place] [address] HPI - General General Date of Admission: 06/19/23 Date of Service: 06/19/23 Chief Complaint: AMS HPI Narrative ALEXANDER NIDHIANAHI, is a Patient is an 82-year-old female history of diabetes, dementia, hypothyroidism who presented to [facility] ED 06/19/2023 with confusion. Patient has declined [...] safe taking her home at this time. [facility] Medical History (Updated 06/19/23 @ 19:40 by [...] % (Auto) 66.0, Lymph % (Auto) 24.3, Karnes% (Auto) 7.0, Eos % (Auto) 1.3, Baso [...] Clarity Clear, Urine pH 6.0, Ur Specific [place] 1.015, Urine Protein Negative, Urine Glucose (UA) [...] documentation, 58Minutes Charges/Coding Visit Charges Inpatient E&M: 74472 Init Hosp L2 06/19/231946 <Electronically signed by Viri Mcclelland MD> Cosigner Signature (if applicable): CC: FORGER HELPER-C Evita Jimenez; Dr. Viri Mcclelland MD~ Signed [facility] Work Phone: 1(384) 338-912202-10-2024 Discharge summary Author Artur Gallardo [facility] June 19, 2023 6:51pm Note Date/Time June 19, 2023 4:42pm [facility] Medical Records Department [address] [place] [address] Emergency Department Summary 06/19/23 MR#: [id number] Acct: [id number] Name: ALEXANDER XIAO Rep #:[id number] : 1940 82 From: Artur Gallardo DO PCP: BEKCY Nash Status:REG ER Location: ED HPI History of Present Illness Chief Complaint: Confusion Narrative Narrative: 82-year-old female with confusion. states this is a long-term thing andshe was seen by nurse practitioner 2 years ago and sent in to [place] to see a specialist and dementia. Patient [...] would manage these medications on her own. [facility] Medical History COVID COVID-19 Diabetes Hypothyroidism [...] % (Auto) 66.0 Lymph % (Auto) 24.3 Karnes % (Auto) 7.0 Eos % (Auto) 1.3 [...] Clarity Clear Urine pH 6.0 Ur Specific [place] 1.015 Urine Protein Negative Urine Glucose (UA) [...] Provider: Evita Jimenez NP Referrals: Evita Jimenez FORGER HELPER, FORGER HELPER-C [Primary Care Provider] - What to do if you have Problems For any increased pain, shortness of breath, bleeding, nausea or vomiting, chestpain, or any unexpected problems, contact your Primary Care Provider. Call [facility] ([phone]) or report to the closest Emergency Room. Call 911 if necessary. 06/19/23 8702 <Electronically signed by Artur Gallardo DO> Cosigner Signature (if applicable): CC: BECKY Evita Jimenez ~ Signed [facility] Work Phone: 1(297) 528-599502-10-2024 History of Present illness Narrative* Devin Carrasquillo [...] persists. Devin Carrasquillo MD [facility] Inst[facility]* Patient Instructions* Evita Jimenez APRN.CNS - 02/27/2022 8:40 AM EDT Let us know if needing additional help at home or wanting to follow up with head swamper regarding memory [facility] History of Present illness Narrative* Evita [...] Video visit 01/29/2022 for Covid19. Prescribed paxlovid. [facility] 02/02/2022 for COVID-19 virus infection, [...] Continue to note decreased memory, has declined head swamper in the past. Prefers to not take [...] problem - ICD9: 780.93, ICD10: R41.3 Declines head swamper / further evaluation at this time. Prefers to not take any additional medications at this time. would like to speak with SW about community resources. Recheck memory at next visit, follow up as indicated/willing. - PRIMARY CARE SOCIAL WORK CONSULT Evita Jimenez APRN.BOX CUTTER Medical Decision Making: Data: Independent interpretation of test from other physician/QHCP Risk: Moderate: Drug management Medical Decision Making Level: 4 - Moderate documented in this encounterAsht[facility]ula [facility]09-22-2022 History of Present illness Narrative* Evita Jimenez APRN.CNS - 01/29/2022 1:40 PM EDT Telemedicine Follow-up for COVID-19 Infection Audio only was used for evaluation of this patient. Location of patient: [facility] Alexander Xiao is a 81 year [...] (COVID-19). Nirmatrelvir/Ritonavir (Paxlovid) Eligibility and Patient Discussion [facility] Formulary Restriction Criteria: Adult outpatients 18 [...] < 30 mL/min) or severe hepatic impairment (Child-Ewn Class C) [x] Meeting at least one [...] the Fact Sheet for Patients, Parents and Caregivers. The patient was also instructed that in addition to the treatment with nirmatrelvir/ritonavir, he/she should continue to self-isolate and use infection control measures (e.g., wear mask, isolate, social distance, avoid sharing personal items, clean and disinfect high touch surfaces, and frequent h andwashing) according to CDC guidelines. The patient stated understanding and gave verbal consent to proceeding with nirmatrelvir/ritonavir treatment. Evita Jimenez APRN.CNS January 29, 2022 1:47 PM 20 min in call documented in this encounterAshtabula [facility] Hospital09-22-2022 Instructions* Patient Instructions* Evita Jimenez APRN.CNS [...] to your local emergency facility: Notify the top printing press operator that you are seeking care for [...] you with PAXLOVID for the treatment of okgs-hf-cpqfzcgl coronavirus disease (COVID-19) caused by the SARS-CoV-2 [...] virus. COVID-19 illnesses have ranged from very njhz-ne-yqegpp, including illness resulting in . While information [...] is an investigational medicine used to treat iief-vw-nthefdxg COVID-19 in adults and children [12 years [...] of using PAXLOVID to treat people with kymv-bq-ypawavml COVID-19. The FDA has authorized the emergency use of PAXLOVID for the treatment of bmge-nr-rdjwkrpo COVID-19in adults and children [12 years of [...] the medicines you take, including prescription and fssf-ytc-ikoitrx medicines, vitamins, and herbal supplements. Some medicines [...] (remdesivir) is FDA-approved for the treatment of qcod-mm-xuvtgxzu COVID-19 in certain adults and children. Talk with your doctor to see if Veklury is appropriate for you. Like PAXLOVID, FDA may also allow for the emergency use of other medicines to treat people with COVID-19. Go to https://www.fda.gov/vvfssjeiu-bcnwgmezcrdz-hdkrqtfnotx/fyq-nlknf-jozwaaztye-and- policy-framework/vuiecjegi-dcm-ktwjiodxurrho for information on the emergency use of [...] if I am or ? There is steward/stewardess economy class treating women or mothers with PAXLOVID. For [...] to FDA MedWatch at www.fda.gov/medwatch or call 7-282-LFM9345 or you can reportside effects to [employer] at the contact information provided below. Website Fax number Telephone number [employer] How should I store PAXLOVID? Store PAXLOVID [...] (EUA). The EUA is supported by a [place] of Health and Human Service (HHS) declaration that circumstances exist to justify the emergency use of drugs and biological productsduring the COVID-19 pandemic. PAXLOVID for the treatment of slqx-ft-tcrzdtlz COVID-19 in adults and children [12 years [...] telephone number provided below. Website Telephone number www.ENZNP10jppbRs.com (4-790-A13-PACK) You can also go to www.Selligy or call for more information. Pfizer Distributed by [employer] [place] [address] [id number] Revised: 25 July 2021 documented in this encounterAshtabula [facility] Hospital09-22-2022 Miscellaneous Notes* Telephone Encounter - Camilla [...] symptoms; ER if severe. documented in this encounterAshtabula General Hospital09-21-2022 History of Present illness Narrative* Jackie Nunes APRN.HIGH PRESSURE BOILER OPERATOR - 01/28/2022 4:26 PM EDT Subjective HPI [...] 09/29/12 Colonoscopy DILATION & CURETTAGE DX&/THER NONOBSTETRIC 1990 Dilation & curettage LAPAROSCOPY SURG CHOLECYSTECTOMY 1996 [...] COVID-19 Jackie Nunes APRN.CNP documented in this encounterAshtabula General Hospital09-21-2022 Instructions* Patient Instructions* Jackie Nunes APRN.CNP [...] are not readily available, use a hand knotter hand that contains at least 60% alcohol. Cover [...] large groups of people (sporting events, concerts, [employer] roberts, etc). Avoid unnecessary domestic and international travel, including travel through large international airports. If traveling, wipe down your airplane seat (and tray) with a disinfecting wipe. Office Visits If you have a fever, cough or shortness of breath, or are otherwise concerned you have COVID-19, weask that you do not come to any [facility] facility without calling your primary care physician or speaking to a provider using a virtual visit using [facility] [employer]. You will be evaluated to determine if you require being seen in person or if you meet CDC guidelines for testing for COVID-19 based on symptoms, travel and exposures. If you meet criteria for testing, your [employer] provider or primary care physician will [...] at least 30 days of prescription medications, jgwf-nle-ynjqzwz medicines, and supplies on hand in case [...] youwant to harm yourself or others: Call 981 if you feel like you want to harm yourself or others Visit the Disaster Distress Helpline call , [place] [address] Visit the [employer] Domestic Violence Hotline or call and TTY Visit the National Suicide Prevention Lifeline or call and TTY or text Most importantly, don't panic. By following basic prevention measures such as hand hygiene and cover your cough, you are helping to keep yourself and others healthy. Additional information can be found on the [facility] and [facility] web sites: https://www.cdc.gov/coronavirus/2019-nCoV/index.html https://[facility].org/coronavirus Beginning Home Isolation Isolation is used to [...] to your local emergency facility: Notify the top printing press operator that you are seeking care for [...] or concerning to you. documented in this encounterAshtabula General Hospital09-02-2022 Instructions* Patient Instructions* Rena Romo APRN.CNP [...] Dermatology if no improvement documented in this encounterAshtabula General Hospital09-02-2022 History of Present illness Narrative* Rena Romo APRN.RANDI - 01/09/2022 10:25 AM EDT Images from the original note were not included. Subjective The history is provided by the patient and the spouse. No speech language pathologist was used. GILL Xiao [...] have confirmed and edited as necessary, the [facility] Review of Systems Constitutional: Negative for [...] evaluation. Rena Romo APRN.CNP documented in this encounterAshtabula General Hospital07-28-2022 Miscellaneous Notes* Telephone Encounter - Lashay Quinones Ma - 12/04/2021 1:53 PM EDT Letter mailed to pt notifying her of normal stool test. If questions to contact the office. Lashay Quinones Ma * Telephone Encounter - Evita Jimenez APRN.CNS - 12/04/2021 1:46 PM EDT Please let her know fecal occult blood testing was negative documented in this encounterAshtabula General Hospital07-26-2022 Miscellaneous Notes* Telephone Encounter - Delilah [...] MA * Telephone Encounter - Evita Jimenez APRN.JESSENIA - 12/02/2021 7:43 AM EDT Please let [...] Abs Lymph 1.00 - 4.00 k/uL 1.87 Karnes% % 9.5 Abs Karnes <0.87 k/uL 0.52 Eosin% % 2.9 Abs [...] - 80.0 ng/mL 42.6 documented in this encounterAshtabula General Hospital07-21-2022 History of Present illness Narrative* Evita [...] is. States sees routinely. Does not see cloth shrinking machine operator. Hyperlipidemia. Ms. Xiao reports doing well on [...] immunization - ICD9: V03.89, ICD10: Z23 - PFIZER-BIONTMaimaibao COVID-19 VACCINE, AGE 12+ YR ([place]) [...] Level: 4 - Moderate documented in this encounterAshtabula General Hospital07-21-2022 Instructions* Patient Instructions* Evita Jimenez APRN.CNS - 11/27/2021 9:13 AM EDT Check to see if your insurance covers Tdap and shingles vaccine and what location to get the vaccine usually best covered at your local pharmacy where you get prescriptions filled documented in this encounterAshtabula General Hospital06-27-2022 History of Present illness Narrative* Neema Mills MA - 11/03/2021 1:11 PM EDT POPULATION HEALTH NAVIGATION OUTREACH Action/SAVANAHI Dr. Corbett, the following orders have elfego pended for you to review and file: Pended Orders ID Status Description Pended By When Reason [id number] Pended HGB A1C Neema Mills MA 11/03/21 1317 [id number] Pended SCHEDULE LAB TESTING Neema Mills MA 11/03/21 1317 Patient is on [facility] list for below gaps and needs appt to address : E11.9 - DM (diabetes mellitus) ([facility]) - [id number] Last Billed 01/08/2020
Appointment type needed: Annual [...] 03, 2021 1:11 PM documented in this encounterAshtabula General Hospital07-10-2017 History of Past illness Narrative* Problem Noted Date Resolved Date Serum calcium elevated 11/16/2016 8 Overview: Normal on 05/2017 labs documented as of this encounter (statuses as of 11/05/2021) [facility] of Past illness Narrative* Problem Noted Date Resolved Date Serum calcium elevated 11/16/2016 8 Overview: Normal on 05/2017 labs documented as of this encounter (statuses as of 11/27/2021) [address]10-2017 History of Past illness Narrative* Problem Noted Date Resolved Date Serum calcium elevated 11/16/2016 8 Overview: Normal on 05/2017 labs documented as of this encounter (statuses as of 12/02/2021) [address]10-2017 History of Past illness Narrative* Problem Noted Date Resolved Date Serum calcium elevated 11/16/2016 8 Overview: Normal on 05/2017 labs documented as of this encounter (statuses as of 12/04/2021) [facility] of [facility] illness Narrative* Problem Noted Date Resolved Date Serum calcium elevated 11/16/2016 8 Overview: Normal on 05/2017 labs documented as of this encounter (statuses as of 01/09/2022) [facility] of [facility] illness Narrative* Problem Noted Date Resolved Date Serum calcium elevated 11/16/2016 8 Overview: Normal on 05/2017 labs documented as of this encounter (statuses as of 01/28/2022) [facility] of [facility] illness Narrative* Problem Noted Date Resolved Date Serum calcium elevated 11/16/2016 8 Overview: Normal on 05/2017 labs documented as of this encounter (statuses as of 01/29/2022) [facility] illness Narrative* Problem Noted Date Resolved Date Serum calcium elevated 11/16/2016 8 Overview: Normal on 05/2017 labs documented as of this encounter (statuses as of 01/29/2022) [address]10[address]2017 History of Past illness Narrative* Problem Noted Date Resolved Date Serum calcium elevated 11/16/2016 8 Overview: Normal on 05/2017 labs documented as of this encounter (statuses as of 02/27/2022) [address]10-2017 History of Past illness Narrative* Problem Noted Date Diagnosed Date Resolved Date Serum calcium elevated 11/16/201612/10 Overview: Normal on 05/2017 labs documented as of this encounter (statuses as of 06/19/2023) [address]10[address]2017 History of Past illness Narrative* Problem Noted Date Diagnosed Date Resolved Date Serum calcium elevated 11/16/201612/10 Overview: Normal on 05/2017 labs documented as of this encounter (statuses as of 07/12/2023) [address]10[address]2017 History of Past illness Narrative* Problem Noted Date Diagnosed Date Resolved Date Serum calcium elevated 11/16/201612/10 Overview: Normal on 05/2017 labs documented as of this encounter (statuses as of 07/17/2023) [address]10-2017 History of Past illness Narrative* Problem Noted Date Diagnosed Date Resolved Date Serum calcium elevated 11/16/201612/10 Overview: Normal on 05/2017 labs documented as of this encounter (statuses as of 07/20/2023) [address]10[address]2017 History of Past illness Narrative* Problem Noted Date Diagnosed Date Resolved Date Serum calcium elevated 11/16/201612/10 Overview: Normal on 05/2017 labs documented as of this encounter (statuses as of 07/21/2023) [address]10[address]2017 History of Past illness Narrative* Problem Noted Date Diagnosed Date Resolved Date Serum calcium elevated 11/16/201612/10 Overview: Normal on 05/2017 labs documented as of this encounter (statuses as of 07/21/2023) [place] [address]-10-2017 History of Past illness Narrative* Problem Noted Date Diagnosed Date Resolved Date Serum calcium elevated 11/16/201612/10 Overview: Normal on 05/2017 labs documented as of this encounter (statuses as of 07/27/2023) [place] [address]-10-2017 History of Past illness Narrative* Problem Noted Date Diagnosed Date Resolved Date Serum calcium elevated 11/16/201612/10 Overview: Normal on 05/2017 labs documented as of this encounter (statuses as of 08/16/2023) [address]2017 History of Past illness Narrative* Problem Noted Date Diagnosed Date Resolved Date Serum calcium elevated 11/16/201612/10 Overview: Normal on 05/2017 labs documented as of this encounter (statuses as of 08/13/2023) [facility] HospitalChi complaint+Reason for visit Narrative* Chief Complaint SYNCOPAL EPISODE SYNCOPAL EPISODE Reason for Visit COVID COVID-19 Dehydration Diarrhea Syncope [facility] Work Phone: Consult note Author Shayna Mayberry [facility] June 22, 2023 10:01am Note Date/Time June 22, 2023 10:01am [facility] Medical Records Department [address] [place] [id number] Counseling Note - Pharmacy 06/22/23 1001 MR#: [id number] Acct: [id number] Name: ALEXANDER XIAO Rep #:[id number] : 1940 82 From: Shayna Mayberry PCP: BECKY Nash Status:ADM ELAINE Y Location: [place] [address] [place] Med Reconciliation Pharmacy Service has performed discharge [...] Signature (if applicable): Date CC: ~ Signed [facility] Work Phone: Evaluation note* Diagnosis Type 2 diabetes mellitus without complication, without long-term current use of insulin (HCC)- Primary documented in this encounter [facility]* Diagnosis Acquired hypothyroidism- Primary Unspecified [...] Dermatophytosis of nail documented in this encounter [facility]* Diagnosis Rash- Primary Rash and other nonspecific skin eruption Skin lesion Unspecified disorder of skin and subcutaneous tissue documented in this encounter [facility]* Diagnosis Close exposure to COVID-19 virus- Primary documented in this encounter [facility]* Diagnosis COVID-19 virus infection- Primary documented [facility] encounter [facility]* Diagnosis Onset Date Resolution Status COVID acute COVID-19 acute Dehydration acute Diarrhea acute Syncope acute [facility] Work Phone: Evaluation note* Diagnosis COVID-19 virus [...] problem Memory loss documented in this encounter [facility]* Diagnosis Neck pain- Primary Cervicalgia [facility] Diagnosis Onset Date Resolution Status AMS (altered mental status) acute Diabetes acute Hypothyroidism acute [facility] Work Phone: Evaluation note* Diagnosis Moderate dementia with other behavioral disturbance, unspecified dementia type (HCC)- Primary Hospital discharge follow-up Other follow-up examination Type 2 diabetes mellitus without complication, without long-term current use of insulin (HCC) Hypercholesteremia Pure hypercholesterolemia Acquired hypothyroidism Unspecified hypothyroidism Nocturnal enuresis Encounter for therapeutic drug monitoring [facility] Diagnosis Paronychia of finger of left hand- Primary Infection, skin Unspecified local infection of skin and subcutaneous tissue [facility] Diagnosis Onychomycosis- Primary Dermatophytosis of nail Type 2 diabetes mellitus without complication, without long-term current use of insulin (HCC) Pain in toe of left foot Pain in limb Pain in toe of right foot Pain in limb Venous insufficiency Unspecified venous (peripheral) insufficiency Xerosis cutis Other specified disease of sebaceous glands [facility] Diagnosis Paronychia of finger of left hand- Primary [facility]* Diagnosis Paronychia of finger of left hand- Primary [facility]* Diagnosis Moderate dementia with other behavioral disturbance, unspecified dementia type (HCC) documented [facility] encounter [facility]* Diagnosis Onychomycosis- Primary Dermatophytosis of nail Pain in toe of left foot Pain in limb Pain in toe of right foot Pain in limb Type 2 diabetes mellitus without complication, without long-term current use of insulin (HCC) documented [facility] encounter [facility]* Diagnosis Acquired hypothyroidism Unspecified hypothyroidism [facility] Diagnosis Moderate dementia with other behavioral disturbance, unspecified dementia type (HCC) [facility]* Diagnosis Moderate dementia with other behavioral disturbance, unspecified dementia type (HCC)- Primary Type 2 diabetes mellitus without complication, without long-term current use of insulin (HCC) Acquired hypothyroidism Unspecified hypothyroidism Encounter for therapeutic drug monitoring documented [facility]* Diagnosis Acquired hypothyroidism Unspecified hypothyroidism [facility]* Diagnosis Type 2 diabetes mellitus without complication, without long-term current use of insulin (HCC) [facility]* Diagnosis Onychomycosis- Primary Dermatophytosis of nail Pain in toe of left foot Pain in limb Pain in toe of right foot Pain in limb Type 2 diabetes mellitus without complication, without long-term current use of insulin (HCC) [facility]* Diagnosis Acquired hypothyroidism Unspecified hypothyroidism documented in this encounter [facility]* Diagnosis Moderate dementia with other behavioral disturbance, unspecified dementia type (HCC) [facility]* Diagnosis Paronychia of finger of left hand- Primary Moderate dementia with other behavioral disturbance, unspecified dementia type (HCC) Type 2 diabetes mellitus without complication, without long-term current use of insulin (HCC) [facility]* Diagnosis Moderate dementia with other behavioral disturbance, unspecified dementia type (HCC)- Primary Driving safety issue Other specified personal history presenting hazards to health Type 2 diabetes mellitus without complication, without long-term current use of insulin (HCC) documented in this encounter [facility]* Diagnosis Onychomycosis- Primary Dermatophytosis of nail Pain in toe of left foot Pain in limb Pain in toe of right foot Pain in limb [facility]* Diagnosis Moderate dementia with other behavioral disturbance, unspecified dementia type (HCC) [facility]* Diagnosis Vitamin B12 deficiency- Primary Other B-complex deficiencies [facility]* Diagnosis Vitamin B 12 deficiency- Primary Other B-complex deficiencies [facility]* Diagnosis Vitamin B 12 deficiency- Primary Other B-complex deficiencies [facility]* Diagnosis Vitamin B 12 deficiency- Primary Other B-complex deficiencies [facility]* Diagnosis Vitamin B 12 deficiency- Primary Other B-complex deficiencies [facility]* Diagnosis Skin tear of lower leg without complication, initial encounter- Primary documented in this encounter [facility] note* Diagnosis Medicare annual wellness visit, subsequent- [...] right, subsequent encounter documented in this encounter [facility]* Diagnosis Vitamin D deficiency- Primary Unspecified vitamin D deficiency documented in this encounter [facility] note* Diagnosis Moderate dementia with other behavioral disturbance, unspecified dementia type (HCC) documented in this encounter [facility] note* Diagnosis Type 2 diabetes mellitus without complication, without long-term current use of insulin (HCC)- Primary documented in this encounter [facility] for referral (narrative)* Diagnostic Procedure Only (Routine) - Pending Review Specialty Diagnoses / Procedures Referred By Lopez bruner Referred To Contact XR IMAGING Diagnoses Neck pain Procedures XR CERV OTHER 4V AP/LAT/OBL RADEX SPINE CERVICAL 4 OR 5 VIEWS Devin Carrasquillo MD [address] [place] [address] [place] [id number] Referral ID Status Reason Start Date Expiration Date Visits Requested Visits Authorized [id number] Pending Review Auto-Generat ed Referral 06/19/2023 07/18/2024 1 1 [facility] Advance Directives No Advanced Directives Records FoundDocuments on File Type Date Recorded 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 Frame Operator Expl 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 Advance Directive(s) 11/28/2014 4:19 PM Documents on File Type Date Recorded 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 Frame Operator Expl anation Advance Directive(s) 11/28/2014 4:19 PM Advance Directive Response Recorded Date/ Time Name of Medical Power of Metal Fabricator Helper Graham velázquez February 03, 2022 12:15am Living Will Yes February 03, 2022 12:15am Power of Metal Fabricator Helper Yes January 12:15am Advance Directive Response Recorded Date/ Time Living Will Yes June 19 8:27pm Power of Metal Fabricator Helper No June 19, 2023 8:27pm Reason for Referral Specialty Diagnoses / Procedures Referred By Contac t Referred To Contact Podiatry Diagnoses Type 2 diabetes mellitus without complication, without long-term current use of insulin (HCC) Fungal nail infection Procedures CONSULT TO PODIATRY OFFICE/OUTPATIENT [facility] 60-74 MINUTES Evita Jimenez, RESEARCH ASSISTANT.BOX CUTTER [address] [place] [address] Referral ID Status Reason Start Date Expiration Date Visits Requested Visits Authorized [id number] Authorized PCP Requested Referral 11/27/2021 11/27/2022 1 1 Specialty Diagnoses / Procedures Referred By Contac t Referred To Contact Ophthalmology Diagnoses Type 2 diabetes mellitus without complication, without long-term current use of insulin (HCC) Procedures CONSULT TO OPHTHALMOLOGY OFFICE/OUTPATIENT [facility] 60-74 MINUTES Evita Jimenez, RESEARCH ASSISTANT.BOX CUTTER [address] [place] [address] Referral ID Status Reason Start Date Expiration Date Visits Requested Visits Authorized [id number] Authorized PCP Requested Referral 11/27/2021 11/27/2022 1 1 Specialty Diagnoses / Procedures Referred By Contac t Referred To Contact Gerontology Diagnoses Memory problem Procedures CONSULT TO GERIATRICS OFFICE/OUTPATIENT [facility] 60-74 MINUTES Evita Jimenez, RESEARCH ASSISTANT.BOX CUTTER [address] [place] [address] Referral ID Status Reason Start Date Expiration Date Visits Requested Visits Authorized [id number] Authorized PCP Requested Referral 11/27/2021 11/27/2022 1 1 Specialty Diagnoses / Procedures Referred By Contac t Referred To Contact Ophthalmology Diagnoses Screening for diabetic retinopathy Procedures CONSULT TO OPHTHALMOLOGY OFFICE/OUTPATIENT [facility] 60-74 MINUTES Evita Jimenez, RESEARCH ASSISTANT.BOX CUTTER [address] [place] [address] Referral ID Status Reason Start Date Expiration Date Visits Requested Visits Authorized [id number] Authorized PCP Requested Referral 2 02/27/2023 1 1 Specialty Diagnoses / Procedures Referred By Lopez bruner Referred To Contact Podiatry Diagnoses Type 2 diabetes mellitus without complication, without long-term current use of insulin (HCC) Procedures CONSULT TO PODIATRY OFFICE/OUTPATIENT [facility] 60 MINUTES Christina Edmonds APRN.HIGH PRESSURE BOILER OPERATOR [address] [phone] Referral ID Status Reason Start Date Expiration Date Visits Requested Visits Authorized [id number] Authorized PCP Requested Referral 07/12/2023 07/11/2024 1 1 Specialty Diagnoses / Procedures Referred By Lopez bruner Referred To Contact Gerontology Diagnoses Moderate dementia with other behavioral disturbance, unspecified dementia type (HCC) Procedures CONSULT TO GERIATRICS OFFICE/OUTPATIENT [facility] 60 MINUTES Christina Edmonds APRN.HIGH PRESSURE BOILER OPERATOR [address] [phone] Referral ID Status Reason Start Date Expiration Date Visits Requested Visits Authorized [id number] Authorized PCP Requested Referral 03/14/2024 03/14/2025 1 [...] or prosecute any alcohol or drug abuse patient.[facility] the event this information is protected by the Federal Confidentiality of Alcohol and Drug Abuse Patient Records regulations: The Federal rules restrict any use of the information to criminally investigate or prosecute any alcohol or drug abuse patient.[facility] HospitalIn the event this information is protected by the Federal Confidentiality of Alcohol and Drug Abuse Patient Records regulations: The Federal rules restrict any use of the information to criminally investigate or prosecute any alcohol or drug abuse patient.[facility] HospitalIn the event this information is protected by the Federal Confidentiality of Alcohol and Drug Abuse Patient Records regulations: The Federal rules restrict any use of the information to criminally investigate or prosecute any alcohol or drug abuse patient.[facility] HospitalIn the event this information is protected by the Federal Confidentiality of Alcohol and Drug Abuse Patient Records regulations: The Federal rules restrict any use of the information to criminally investigate or prosecute any alcohol or drug abuse patient.[facility] HospitalIn the event this information is protected by the Federal Confidentiality of Alcohol and Drug Abuse Patient Records regulations: The Federal rules restrict any use of the information to criminally investigate or prosecute any alcohol or drug abuse patient.[facility] HospitalIn the event this information is protected by the Federal Confidentiality of Alcohol and Drug Abuse Patient Records regulations: The Federal rules restrict any use of the information to criminally investigate or prosecute any alcohol or drug abuse patient.[facility] HospitalIn the event this information is protected by the Federal Confidentiality of Alcohol and Drug Abuse Patient Records regulations: The Federal rules restrict any use of the information to criminally investigate or prosecute any alcohol or drug abuse patient.[facility] HospitalIn the event this information is protected by the Federal Confidentiality of Alcohol and Drug Abuse Patient Records regulations: The Federal rules restrict any use of the information to criminally investigate or prosecute any alcohol or drug abuse patient.[facility] HospitalIn the event this information is protected by the Federal Confidentiality of Alcohol and Drug Abuse Patient Records regulations: The Federal rules restrict any use of the information to criminally investigate or prosecute any alcohol or drug abuse patient.[facility] HospitalIn the event this information is protected by the Federal Confidentiality of Alcohol and Drug Abuse Patient Records regulations: The Federal rules restrict any use of the information to criminally investigate or prosecute any alcohol or drug abuse patient.[facility] HospitalIn the event this information is protected by the Federal Confidentiality of Alcohol and Drug Abuse Patient Records regulations: The Federal rules restrict any use of the information to criminally investigate or prosecute any alcohol or drug abuse patient.[facility] HospitalIn the event this information is protected by the Federal Confidentiality of Alcohol and Drug Abuse Patient Records regulations: The Federal rules restrict any use of the information to criminally investigate or prosecute any alcohol or drug abuse patient.[facility] HospitalIn the event this information is protected by the Federal Confidentiality of Alcohol and Drug Abuse Patient Records regulations: The Federal rules restrict any use of the information to criminally investigate or prosecute any alcohol or drug abuse patient.[facility] HospitalIn the event this information is protected by the Federal Confidentiality of Alcohol and Drug Abuse Patient Records regulations: The Federal rules restrict any use of the information to criminally investigate or prosecute any alcohol or drug abuse patient.[facility] HospitalIn the event this information is protected by the Federal Confidentiality of Alcohol and Drug Abuse Patient Records regulations: The Federal rules restrict any use of the information to criminally investigate or prosecute any alcohol or drug abuse patient.[facility] HospitalIn the event this information is protected by the Federal Confidentiality of Alcohol and Drug Abuse Patient Records regulations: The Federal rules restrict any use of the information to criminally investigate or prosecute any alcohol or drug abuse patient.[facility] HospitalIn the event this information is protected by the Federal Confidentiality of Alcohol and Drug Abuse Patient Records regulations: The Federal rules restrict any use of the information to criminally investigate or prosecute any alcohol or drug abuse patient.[facility] HospitalIn the event this information is protected by the Federal Confidentiality of Alcohol and Drug Abuse Patient Records regulations: The Federal rules restrict any use of the information to criminally investigate or prosecute any alcohol or drug abuse patient.[facility] HospitalIn the event this information is protected by the Federal Confidentiality of Alcohol and Drug Abuse Patient Records regulations: The Federal rules restrict any use of the information to criminally investigate or prosecute any alcohol or drug abuse patient.[facility] HospitalIn the event this information is protected by the Federal Confidentiality of Alcohol and Drug Abuse Patient Records regulations: The Federal rules restrict any use of the information to criminally investigate or prosecute any alcohol or drug abuse patient.[facility] HospitalIn the event this information is protected by the Federal Confidentiality of Alcohol and Drug Abuse Patient Records regulations: The Federal rules restrict any use of the information to criminally investigate or prosecute any alcohol or drug abuse patient.[facility] HospitalIn the event this information is protected by the Federal Confidentiality of Alcohol and Drug Abuse Patient Records regulations: The Federal rules restrict any use of the information to criminally investigate or prosecute any alcohol or drug abuse patient.[facility] HospitalIn the event this information is protected by the Federal Confidentiality of Alcohol and Drug Abuse Patient Records regulations: The Federal rules restrict any use of the information to criminally investigate or prosecute any alcohol or drug abuse patient.[facility] HospitalIn the event this information is protected by the Federal Confidentiality of Alcohol and Drug Abuse Patient Records regulations: The Federal rules restrict any use of the information to criminally investigate or prosecute any alcohol or drug abuse patient.[facility] HospitalIn the event this information is protected by the Federal Confidentiality of Alcohol and Drug Abuse Patient Records regulations: The Federal rules restrict any use of the information to criminally investigate or prosecute any alcohol or drug abuse patient.[facility] HospitalIn the event this information is protected by the Federal Confidentiality of Alcohol and Drug Abuse Patient Records regulations: The Federal rules restrict any use of the information to criminally investigate or prosecute any alcohol or drug abuse patient.[facility] HospitalIn the event this information is protected by the Federal Confidentiality of Alcohol and Drug Abuse Patient Records regulations: The Federal rules restrict any use of the information to criminally investigate or prosecute any alcohol or drug abuse patient.[facility] HospitalIn the event this information is protected by the Federal Confidentiality of Alcohol and Drug Abuse Patient Records regulations: The Federal rules restrict any use of the information to criminally investigate or prosecute any alcohol or drug abuse patient.[facility] HospitalIn the event this information is protected by the Federal Confidentiality of Alcohol and Drug Abuse Patient Records regulations: The Federal rules restrict any use of the information to criminally investigate or prosecute any alcohol or drug abuse patient.[facility] HospitalIn the event this information is protected by the Federal Confidentiality of Alcohol and Drug Abuse Patient Records regulations: The Federal rules restrict any use of the information to criminally investigate or prosecute any alcohol or drug abuse patient.[facility] HospitalIn the event this information is protected by the Federal Confidentiality of Alcohol and Drug Abuse Patient Records regulations: The Federal rules restrict any use of the information to criminally investigate or prosecute any alcohol or drug abuse patient.[facility] HospitalIn the event this information is protected by the Federal Confidentiality of Alcohol and Drug Abuse Patient Records regulations: The Federal rules restrict any use of the information to criminally investigate or prosecute any alcohol or drug abuse patient.[facility] HospitalIn the event this information is protected by the Federal Confidentiality of Alcohol and Drug Abuse Patient Records regulations: The Federal rules restrict any use of the information to criminally investigate or prosecute any alcohol or drug abuse patient.[facility] HospitalIn the event this information is protected by the Federal Confidentiality of Alcohol and Drug Abuse Patient Records regulations: The Federal rules restrict any use of the information to criminally investigate or prosecute any alcohol or drug abuse patient.[facility] HospitalIn the event this information is protected by the Federal Confidentiality of Alcohol and Drug Abuse Patient Records regulations: The Federal rules restrict any use of the information to criminally investigate or prosecute any alcohol or drug abuse patient.[facility] HospitalIn the event this information is protected by the Federal Confidentiality of Alcohol and Drug Abuse Patient Records regulations: The Federal rules restrict any use of the information to criminally investigate or prosecute any alcohol or drug abuse patient.[facility] HospitalIn the event this information is protected by the Federal Confidentiality of Alcohol and Drug Abuse Patient Records regulations: The Federal rules restrict any use of the information to criminally investigate or prosecute any alcohol or drug abuse patient.[facility] HospitalIn the event this information is protected by the Federal Confidentiality of Alcohol and Drug Abuse Patient Records regulations: The Federal rules restrict any use of the information to criminally investigate or prosecute any alcohol or drug abuse patient.[facility] HospitalIn the event this information is protected by the Federal Confidentiality of Alcohol and Drug Abuse Patient Records regulations: The Federal rules restrict any use of the information to criminally investigate or prosecute any alcohol or drug abuse patient.[facility] HospitalIn the event this information is protected by the Federal Confidentiality of Alcohol and Drug Abuse Patient Records regulations: The Federal rules restrict any use of the information to criminally investigate or prosecute any alcohol or drug abuse patient.[facility] HospitalIn the event this information is protected by the Federal Confidentiality of Alcohol and Drug Abuse Patient Records regulations: The Federal rules restrict any use of the information to criminally investigate or prosecute any alcohol or drug abuse patient.[facility] HospitalIn the event this information is protected by the Federal Confidentiality of Alcohol and Drug Abuse Patient Records regulations: The Federal rules restrict any use of the information to criminally investigate or prosecute any alcohol or drug abuse patient.[facility] HospitalIn the event this information is protected by the Federal Confidentiality of Alcohol and Drug Abuse Patient Records regulations: The Federal rules restrict any use of the information to criminally investigate or prosecute any alcohol or drug abuse patient.[facility] HospitalIn the event this information is protected by the Federal Confidentiality of Alcohol and Drug Abuse Patient Records regulations: The Federal rules restrict any use of the information to criminally investigate or prosecute any alcohol or drug abuse patient.[facility] HospitalIn the event this information is protected by the Federal Confidentiality of Alcohol and Drug Abuse Patient Records regulations: The Federal rules restrict any use of the information to criminally investigate or prosecute any alcohol or drug abuse patient.[facility] HospitalIn the event this information is protected by the Federal Confidentiality of Alcohol and Drug Abuse Patient Records regulations: The Federal rules restrict any use of the information to criminally investigate or prosecute any alcohol or drug abuse patient.[facility] HospitalIn the event this information is protected by the Federal Confidentiality of Alcohol and Drug Abuse Patient Records regulations: The Federal rules restrict any use of the information to criminally investigate or prosecute any alcohol or drug abuse patient.[facility] HospitalIn the event this information is protected by the Federal Confidentiality of Alcohol and Drug Abuse Patient Records regulations: The Federal rules restrict any use of the information to criminally investigate or prosecute any alcohol or drug abuse patient.[facility] HospitalIn the event this information is protected by the Federal Confidentiality of Alcohol and Drug Abuse Patient Records regulations: The Federal rules restrict any use of the information to criminally investigate or prosecute any alcohol or drug abuse patient.[facility] HospitalIn the event this information is protected by the Federal Confidentiality of Alcohol and Drug Abuse Patient Records regulations: The Federal rules restrict any use of the information to criminally investigate or prosecute any alcohol or drug abuse patient.[facility] HospitalIn the event this information is protected by the Federal Confidentiality of Alcohol and Drug Abuse Patient Records regulations: The Federal rules restrict any use of the information to criminally investigate or prosecute any alcohol or drug abuse patient.[facility] Reason for Visit (unrecogniz ed section [...] Referred By Lopez t Referred To Contact Podiatry / PODIATRY Diagnoses Type 2 diabetes mellitus without complication, without long-term current use of insulin (HCC) Procedures CONSULT TO PODIATRY OFFICE/OUTPATIENT NEW HIGH MDM 60 MINUTES Christina Edmonds APRN.HIGH PRESSURE BOILER OPERATOR [address] [place] [address] Podi [facility] [address] [place] [address] Referral ID Status Reason Start Date Expiration Date V isits Requested Visits Authorized [id number] Closed PCP Requested Referral 07/12/2023 07/11/2024 1 [...] type (HCC) Procedures CONSULT TO GERIATRICS OFFICE/OUTPATIENT [facility] 60 MINUTES Christina Edmonds APRN.HIGH PRESSURE BOILER OPERATOR [address] [place] [address] Referral ID Status Reason Start Date Expiration Date V isits Requested Visits Authorized [id number] Closed PCP Requested Referral 03/14/2024 03/14/2025 1 1 Reason Comments Results Reason Comments Orders Reason Comments B-12 Injection Reason Onset Date Comments Refill Request 05/15/2024 Reason Comments scrape on lower right leg X 1.5 hours Reason Onset Date Comments Erroneous encounter-disregard 07/24/2024 Reason Comments Patient Update process began to get her admitted to [facility] Reason Comments Medicare Wellness Exam only concern is [place] worsening getting lost having trouble finding home and then looking for Robert who is currently in rehab Reason Comments Patient Update Reason Comments Patient Question Reason Onset Date Comments Refill Request 08/28/2024 Reason Onset Date Comments Population Health Navigation Outreach 10/10/2024 [facility] Reason Onset Date Comments Population Health Navigation Outreach 11/13/2024 [facility] Care Teams (unrecognized sec tion and content) Data Management Manager Relationship Specialty Start Date End Date Jose Corbett MD [address] [place] [address] PCP - General Internal Medicine 10/30/15 Data Management Manager Relationship Specialty Start Date End Date Jose Corbett MD [address] [place] [address] PCP - General Internal Medicine 10/30/15 Data Management Manager Relationship Specialty Start Date End Date Jose Corbett MD [address] [place] [address] PCP - General Internal Medicine 10/30/15 Data Management Manager Relationship Specialty Start Date End Date Jose Corbett MD [address] [place] [address] PCP - General Internal Medicine 10/30/15 Data Management Manager Relationship Specialty Start Date End Date Evita Jimenez, RESEARCH ASSISTANT.BOX CUTTER [address] [place] [address] PCP - General Internal Medicine 01/09/22 Data Management Manager Relationship Specialty Start Date End Date Evita Jimenez, RESEARCH ASSISTANT.BOX CUTTER [address] [place] [address] PCP - General Internal Medicine 01/09/22 Data Management Manager Relationship Specialty Start Date End Date Jose Corbett MD [address] [place] [address] PCP - General Internal Medicine 01/29/22 Data Management Manager Relationship Specialty Start Date End Date Jose Corbett MD [address] [place] [address] PCP - General Internal Medicine 01/29/22 Data Management Manager Relationship Specialty Start Date End Date Jose Corbett MD [address] [place] [address] PCP - General Internal Medicine 01/29/22 Team Status: Active Member Role Status Dates Dr. Jose Corbett MD Family Provider Active Evita Jimenez FORGER HELPER, FORGER HELPER-C Primary Care Provider Active Team Status: Active Member Role Status Dates Dr. Artur Gallardo , DO Emergency Provider Active Evita Jimenez FORGER HELPER, FORGER HELPER-C Primary Care Provider Active Dr. Viri Mcclelland MD Admit Provider, Other Provider A ctive Dr. Teddy Turpin , DO Attending Provider, Other Provider Active Team Status: Inactive Member Role Status Dates Dr. Artur Gallardo , DO Emergency Provider Active Evita Jimenez FORGER HELPER, FORGER HELPER-C Primary Care Provider Active Dr. Viri Mcclelland MD Admit Provider, Other Provider A ctive Dr. Teddy Turpin , DO Attending Provider Active Data Management Manager Relationship Specialty Start Date End Date Jose Corbett MD [address] [place] [address] PCP - General Internal Medicine 01/29/22 Data Management Manager Relationship Specialty Start Date End Date Jose Corbett MD [address] [place] [address] PCP - General Internal Medicine 01/29/22 Data Management Manager Relationship Specialty Start Date End Date Jose Corbett MD [address] [place] [address] PCP - General Internal Medicine 01/29/22 Data Management Manager Relationship Specialty Start Date End Date Jose Corbett MD [address] [place] [address] PCP - General Internal Medicine 01/29/22 Data Management Manager Relationship Specialty Start Date End Date Jose Corbett MD [address] [place] [address] PCP - General Internal Medicine 01/29/22 Data Management Manager Relationship Specialty Start Date End Date Jose Corbett MD [address] [place] [address] PCP - General Internal Medicine 01/29/22 Data Management Manager Relationship Specialty Start Date End Date Jose Corbett MD [employer] [place] [address] PCP - General Internal Medicine 01/29/22 08/09/23 Christina Edmonds APRN.HIGH PRESSURE BOILER OPERATOR [address] [place] [id number] PCP - General Internal Medicine 08/10/23 Data Management Manager Relationship Specialty Start Date End Date Christina Edmonds APRN.HIGH PRESSURE BOILER OPERATOR [address] [place] [phone] PCP - General Internal Medicine 08/10/23 Data Management Manager Relationship Specialty Start Date End Date Christina Edmonds APRN.HIGH PRESSURE BOILER OPERATOR [address] [place] [address] PCP - General Internal Medicine 08/10/23 Data Management Manager Relationship Specialty Start Date End Date Christina Edmonds APRN.HIGH PRESSURE BOILER OPERATOR [address] [place] [phone] PCP - General Internal Medicine 08/10/23 Data Management Manager Relationship Specialty Start Date End Date Christina Edmonds APRN.HIGH PRESSURE BOILER OPERATOR [address] [place] [id number] PCP - General Internal Medicine 08/10/23 Data Management Manager Relationship Specialty Start Date End Date Christina Edmonds APRN.HIGH PRESSURE BOILER OPERATOR [address] [place] [id number] PCP - General Internal Medicine 08/10/23 Data Management Manager Relationship Specialty Start Date End Date Christina Edmonds APRN.HIGH PRESSURE BOILER OPERATOR [address] [place] [id number] PCP - General Internal Medicine 08/10/23 Data Management Manager Relationship Specialty Start Date End Date Christina Edmonds APRN.HIGH PRESSURE BOILER OPERATOR [address] [place] [phone] PCP - General Internal Medicine 08/10/23 Data Management Manager Relationship Specialty Start Date End Date Christina Edmonds APRN.HIGH PRESSURE BOILER OPERATOR [address] [place] [phone] PCP - General Internal Medicine 08/10/23 Data Management Manager Relationship Specialty Start Date End Date Christina Edmonds APRN.HIGH PRESSURE BOILER OPERATOR [address] [place] [address] PCP - General Internal Medicine 08/10/23 Data Management Manager Relationship Specialty Start Date End Date Christina Edmonds APRN.HIGH PRESSURE BOILER OPERATOR [address] [place] [phone] PCP - General Internal Medicine 08/10/23 Data Management Manager Relationship Specialty Start Date End Date Christina Edmonds RESEARCH ASSISTANT.HIGH PRESSURE BOILER OPERATOR [address] [place] [id number] PCP - General Internal Medicine 08/10/23 Data Management Manager Relationship Specialty Start Date End Date Christina Edmonds RESEARCH ASSISTANT.HIGH PRESSURE BOILER OPERATOR [address] [place] [id number] PCP - General Internal Medicine 08/10/23 Data Management Manager Relationship Specialty Start Date End Date Christina Edmonds APRN.HIGH PRESSURE BOILER OPERATOR [address] [place] [id number] PCP - General Internal Medicine 08/10/23 Data Management Manager Relationship Specialty Start Date End Date Christina Edmonds APRN.HIGH PRESSURE BOILER OPERATOR [address] [place] [address] PCP - General Internal Medicine 08/10/23 Data Management Manager Relationship Specialty Start Date End Date Christina Edmonds APRN.HIGH PRESSURE BOILER OPERATOR [address] [place] [address] PCP - General Internal Medicine 08/10/23 Data Management Manager Relationship Specialty Start Date End Date Christina Edmonds APRN.HIGH PRESSURE BOILER OPERATOR [address] [place] [address] PCP - General Internal Medicine 08/10/23 Data Management Manager Relationship Specialty Start Date End Date Christina Edmonds APRN.HIGH PRESSURE BOILER OPERATOR [address] [place] [address] PCP - General Internal Medicine 08/10/23 Data Management Manager Relationship Specialty Start Date End Date Christina Edmonds APRN.HIGH PRESSURE BOILER OPERATOR [address] [place] [address] PCP - General Internal Medicine 08/10/23 Data Management Manager Relationship Specialty Start Date End Date Christina Edmonds APRN.HIGH PRESSURE BOILER OPERATOR [address] [place] [address] PCP - General Internal Medicine 08/10/23 Data Management Manager Relationship Specialty Start Date End Date Christina Edmonds APRN.HIGH PRESSURE BOILER OPERATOR [address] [place] [address] PCP - General Internal Medicine 08/10/23 Data Management Manager Relationship Specialty Start Date End Date Christina Edmonds APRN.HIGH PRESSURE BOILER OPERATOR [address] [place] [address] PCP - General Internal Medicine 08/10/23 Data Management Manager Relationship Specialty Start Date End Date Christina Edmonds APRN.HIGH PRESSURE BOILER OPERATOR [address] [place] [address] PCP - General Internal Medicine 08/10/23 Data Management Manager Relationship Specialty Start Date End Date Christina Edmonds APRN.HIGH PRESSURE BOILER OPERATOR [address] [place] [address] PCP - General Internal Medicine 08/10/23 INFORMATION SOURCE (unrecogn ized section and content) DATE CREATED AUTHOR 11/17/2024 [facility] DATE CREATED AUTHOR 'S ALAINAIZ ALBINA 03/14/2025 [facility] FOR RECORDS PERTAINING TO PATIENTS WHO [...] BE BASED ON THE PRIMARY CLINICAL RECORDS. [facility]. provides no warranty or guarantee of the accuracy or completeness of information in this document.
[2025-05-01 08:49] LABS: Valproic Acid (Depakene) Level 53 ug/mL (50-100)
== END ==
LOC: OLS.SW 05:00
PROVIDERS: PCP Internal Medicine; Visit Provider Internal Medicine
DX: Z79.899 Other long term (current) drug therapy (principal)
CPT/HCPCS: 36415; 80164